=== PATIENT | male | born 1970 | race Caucasian/White ===

== ENCOUNTER → 2021-09-29 | Outpatient (REF) | payer MEDICAID, SELFPAY ==
[2021-09-29 10:39] LABS: Absolute Lymphocyte Count 2.51 X10^3/uL (0.83-4.51); Absolute Neutrophil Count 2.2 X10^3/uL (2.0-7.7); Basophil# 0.05 X10^3/uL; Basophil% 0.9 % (0-1); Eosinophil# 0.42 X10^3/uL; Eosinophils% 7.3 % (0-5); Hemoglobin 14.8 g/dL (13.0-16.5); Lymphocyte # 2.51 X10^3/ul (0.83-4.51); Lymphocyte % 43.5 % (19-41); Mean Corp Hgb Conc 33.6 g/dL (32-36); Mean Corpuscular Hgb 30.7 pg (27.0-32.0); Mean Corpuscular Volume 91.3 fL (80-94); Monocyte# 0.58 X10^3/uL; Monocyte% 10.1 % (0-10); NRBC Flagged by Analyzer 0 % (0-5); Neutrophil # 2.17 X10^3/uL (2.7-7.7); Neutrophil % 37.5 % (47-70); Platelet Count 193 K/mm3 (150-450); RBC Distribution Width CV 13.3 % (11.6-14.6); RBC Distribution Width SD 44.9 fl (35.1-43.9); Red Blood Count 4.82 M/mm3 (4.6-6.2); White Blood Count 5.8 K/mm3 (4.4-11.0)
[2021-09-29 11:32] LABS: ALB/GLOB Ratio 0.9 RATIO (0.9-2.4); AST(SGOT) 51 U/L (15-37); Alanine Aminotransfer ALT/SGPT 82 U/L (16-61); Albumin, Serum 3.2 g/dL (3.2-5.0); Alkaline Phosphatase 59 U/L (45-117); BUN 10 mg/dL (7-18); BUN/Creat Ratio 8.1 RATIO (10-20); Chloride 107 mmol/L (98-107); Creatinine, Serum 1.24 mg/dL (0.70-1.30); EST Glomerular Filtration Rate 65 mL/min (>60); Est Glom Filt Rate - Afr Amer 78 mL/min (>60); Globulin 3.6 g/dL (2.2-4.2); Glucose 91 mg/dL (74-106); Protein, Total 6.8 g/dL (6.4-8.2); Sodium Level 137 mmol/L (136-145)
[2021-09-29 11:33] LABS: Anion Gap 5 (5-15)
== END | disposition home or self-care (01) ==
LOC: OLS.SANC 06:40
PROVIDERS: PCP Internal Medicine; Referring Provider Internal Medicine; Visit Provider Internal Medicine
DX: E11.9 Type 2 diabetes mellitus without complications (principal)
CPT/HCPCS: 36415; 80053; 85025

== ENCOUNTER → 2021-10-06 | Outpatient (REF) | payer MEDICAID, SELFPAY ==
[2021-10-06 09:31] LABS: Valproic Acid (Depakene) Level 67 ug/mL (50-100)
[2021-10-06 09:42] LABS: Hemoglobin A1c 5.5 % (3.8-5.6)
[2021-10-06 09:43] LABS: Vitamin B12 654 pg/mL (211-911); Vitamin D,25 Hydroxy 87.6 ng/mL
[2021-10-06 10:10] LABS: Cholesterol 236 mg/dL (200); High Density Lipoprotein 34 mg/dL; Thyroid Stim Hormone (TSH) 2.65 uIU/mL (0.358-3.74); Triglycerides 242 mg/dL; Very Low Density Lipoprotein 48 mg/dL (5-40)
[2021-10-10 13:47] LABS: KEPPRA (LEVETIRACETAM) 22.8 ug/mL (10.0-40.0)
== END | disposition home or self-care (01) ==
LOC: OLS.SANC 05:00
PROVIDERS: PCP Internal Medicine; Referring Provider Internal Medicine
DX: I10 Essential (primary) hypertension (principal); J44.9 Chronic obstructive pulmonary disease, unspecified; D64.9 Anemia, unspecified
CPT/HCPCS: 36415; 80061; 80164; 80177; 82306; 82607; 82746; 83036; 84443

== ENCOUNTER → 2021-10-21 | Outpatient (REF) | payer MEDICAID, SELFPAY | END | disposition home or self-care (01) | LOC: OLS.SANC 07:00 | PROVIDERS: Visit Provider Internal Medicine | DX: U07.1 COVID-19 (principal) | CPT/HCPCS: 87635; U0003; U0005 ==

== ENCOUNTER → 2021-11-24 16:00 | Outpatient (REF) | payer MEDICAID, SELFPAY ==
[2021-11-25 06:39] LABS: Bacteria 0 SEEN /hpf (None Seen); Mucous, Urine 0 SEEN /hpf (<or=2+); Red Blood Cells-Urine 0 SEEN /hpf (0-5); Squamous Epithelial Cells - UA 0 SEEN /hpf (0-5); White Blood Cells 0 SEEN /hpf (0-5)
[2021-11-25 06:57] LABS: Color, Urine Yellow (Yellow); Glucose, Dipstick Normal (Normal); Ketone-Dipstick Negative (Negative); Leukocyte Esterase-Dipstick Negative /ul (Negative); Nitrite-Dipstick Negative (Negative); Occult Blood-Urine Negative /ul (Negative); Protein-Dipstick Negative (Negative); Specific Gravity, Urine 1.015 (1.002-1.030); Urine Bilirubin Dipstick Negative (Negative); Urine Clarity Clear (Clear); Urine Urobilinogen 1 mg/dl (Normal)
== END ==
LOC: OLS.SANC 16:00
PROVIDERS: Referring Provider Internal Medicine; Visit Provider Internal Medicine
DX: R41.82 Altered mental status, unspecified (principal)
CPT/HCPCS: 81001; 87086; 87088

== ENCOUNTER → 2021-12-04 05:00 | Outpatient (REF) | payer MEDICAID, SELFPAY ==
[2021-12-04 08:30] LABS: Basophil# 0.05 X10^3/uL; Eosinophil# 0.32 X10^3/uL; Eosinophils% 6.3 % (0-5); Hematocrit 39.4 % (40-54); Hemoglobin 13.1 g/dL (13.0-16.5); Lymphocyte % 45.4 % (19-41); Mean Corp Hgb Conc 33.2 g/dL (32-36); Mean Corpuscular Hgb 30.5 pg (27.0-32.0); Mean Corpuscular Volume 91.6 fL (80-94); Mean Platelet Vol. 9.2 fl (6.2-12.0); Monocyte# 0.41 X10^3/uL; Monocyte% 8.1 % (0-10); NRBC Flagged by Analyzer 0 % (0-5); Neutrophil # 1.97 X10^3/uL (2.7-7.7); Neutrophil % 38.8 % (47-70); Platelet Count 233 K/mm3 (150-450); White Blood Count 5.1 K/mm3 (4.4-11.0)
[2021-12-04 09:07] LABS: Anion Gap 7 (5-15); BUN 8 mg/dL (7-18); BUN/Creat Ratio 8.1 RATIO (10-20); Calcium,Total 9.1 mg/dL (8.5-10.1); Chloride 105 mmol/L (98-107); Creatinine, Serum 0.98 mg/dL (0.70-1.30); EST Glomerular Filtration Rate 85 mL/min (>60); Est Glom Filt Rate - Afr Amer 103 mL/min (>60); Glucose 103 mg/dL (74-106); Potassium 3.8 mmol/L (3.5-5.1); Sodium Level 139 mmol/L (136-145); Thyroid Stim Hormone (TSH) 2.85 uIU/mL (0.358-3.74)
== END ==
LOC: OLS.SANC 05:00
PROVIDERS: Visit Provider Internal Medicine
DX: D64.9 Anemia, unspecified (principal); J44.9 Chronic obstructive pulmonary disease, unspecified
CPT/HCPCS: 36415; 80048; 84443; 85025

== ENCOUNTER → 2022-01-16 | Outpatient (REF) | payer MEDICAID, SELFPAY ==
[2022-01-16 08:44] LABS: PSA,Total - Annual Screen 2.04 ng/mL (0.00-4.00)
== END | disposition home or self-care (01) ==
LOC: OLS.SANC 05:00
PROVIDERS: Visit Provider Internal Medicine
DX: R39.9 Unspecified symptoms and signs involving the genitourinary system (principal)
CPT/HCPCS: 36415; 84153; G0103

== ENCOUNTER → 2022-02-03 | Outpatient (REF) | payer MEDICAID, SELFPAY ==
[2022-02-03 09:51] LABS: Hematocrit 39.6 % (40-54); Hemoglobin 13.3 g/dL (13.0-16.5); Mean Corp Hgb Conc 33.6 g/dL (32-36); Mean Corpuscular Hgb 31.1 pg (27.0-32.0); Mean Corpuscular Volume 92.5 fL (80-94); Mean Platelet Vol. 8.8 fl (6.2-12.0); Platelet Count 162 K/mm3 (150-450); RBC Distribution Width CV 14.1 % (11.6-14.6); RBC Distribution Width SD 47.8 fl (35.1-43.9); Red Blood Count 4.28 M/mm3 (4.6-6.2); White Blood Count 6.1 K/mm3 (4.4-11.0)
[2022-02-03 10:00] LABS: Valproic Acid (Depakene) Level 86 ug/mL (50-100)
== END | disposition home or self-care (01) ==
LOC: OLS.SANC 05:00
PROVIDERS: Visit Provider Internal Medicine
DX: D64.9 Anemia, unspecified (principal); J44.9 Chronic obstructive pulmonary disease, unspecified; I10 Essential (primary) hypertension; Z79.899 Other long term (current) drug therapy
CPT/HCPCS: 36415; 80164; 85027

== ENCOUNTER → 2022-02-18 | Outpatient (REF) | payer MEDICAID, SELFPAY | END | disposition home or self-care (01) | LOC: OLS.SANC 05:00 | PROVIDERS: Visit Provider Internal Medicine | DX: M62.81 Muscle weakness (generalized) (principal) | CPT/HCPCS: 36415; 82306 ==

== ENCOUNTER → 2022-04-10 | Outpatient (REF) | payer MEDICAID, SELFPAY ==
[2022-04-10 08:31] LABS: Hematocrit 41.9 % (40-54); Hemoglobin 13.9 g/dL (13.0-16.5); Mean Corp Hgb Conc 33.2 g/dL (32-36); Mean Corpuscular Hgb 30.3 pg (27.0-32.0); Mean Corpuscular Volume 91.5 fL (80-94); Platelet Count 180 K/mm3 (150-450); RBC Distribution Width CV 13.4 % (11.6-14.6); RBC Distribution Width SD 45.3 fl (35.1-43.9); Red Blood Count 4.58 M/mm3 (4.6-6.2); White Blood Count 9.7 K/mm3 (4.4-11.0)
[2022-04-10 08:42] LABS: Valproic Acid (Depakene) Level 94 ug/mL (50-100)
[2022-04-10 08:58] LABS: ALB/GLOB Ratio 0.8 RATIO (0.9-2.4); AST(SGOT) 17 U/L (15-37); Alanine Aminotransfer ALT/SGPT 33 U/L (16-61); Albumin, Serum 3.1 g/dL (3.2-5.0); Alkaline Phosphatase 63 U/L (45-117); Anion Gap 8 (5-15); BUN 7 mg/dL (7-18); BUN/Creat Ratio 6.2 RATIO (10-20); Chloride 103 mmol/L (98-107); Cholesterol 211 mg/dL (200); Creatinine, Serum 1.13 mg/dL (0.70-1.30); EST Glomerular Filtration Rate 72 mL/min (>60); Est Glom Filt Rate - Afr Amer 87 mL/min (>60); Globulin 4.1 g/dL (2.2-4.2); Glucose 99 mg/dL (74-106); High Density Lipoprotein 46 mg/dL; Potassium 3.5 mmol/L (3.5-5.1); Protein, Total 7.2 g/dL (6.4-8.2); Sodium Level 138 mmol/L (136-145); Thyroid Stim Hormone (TSH) 4.19 uIU/mL (0.358-3.74); Triglycerides 136 mg/dL; Very Low Density Lipoprotein 27 mg/dL (5-40)
== END | disposition home or self-care (01) ==
LOC: OLS.SANC 05:00
PROVIDERS: Visit Provider Internal Medicine
DX: D64.9 Anemia, unspecified (principal); J44.9 Chronic obstructive pulmonary disease, unspecified; I10 Essential (primary) hypertension
CPT/HCPCS: 36415; 80053; 80061; 80164; 84443; 85027

== ENCOUNTER → 2022-05-04 | Outpatient (REF) | payer MEDICAID, SELFPAY ==
[2022-05-04 10:30] LABS: Hematocrit 42.9 % (40-54); Hemoglobin 14.6 g/dL (13.0-16.5); Mean Corpuscular Hgb 31.1 pg (27.0-32.0); Mean Corpuscular Volume 91.3 fL (80-94); Mean Platelet Vol. 9.1 fl (6.2-12.0); Platelet Count 198 K/mm3 (150-450); RBC Distribution Width CV 13.4 % (11.6-14.6); RBC Distribution Width SD 45.2 fl (35.1-43.9); White Blood Count 6.5 K/mm3 (4.4-11.0)
[2022-05-04 10:41] LABS: Valproic Acid (Depakene) Level 81 ug/mL (50-100)
[2022-05-04 10:45] LABS: Cholesterol 240 mg/dL (200); High Density Lipoprotein 35 mg/dL; Triglycerides 209 mg/dL; Very Low Density Lipoprotein 42 mg/dL (5-40)
== END | disposition home or self-care (01) ==
LOC: OLS.SANC 05:00
PROVIDERS: Visit Provider Internal Medicine
DX: D64.9 Anemia, unspecified (principal); J44.9 Chronic obstructive pulmonary disease, unspecified; I10 Essential (primary) hypertension
CPT/HCPCS: 36415; 80061; 80164; 85027

== ENCOUNTER → 2022-05-27 | Outpatient (REF) | payer MEDICAID, SELFPAY ==
[2022-05-27 08:35] LABS: Valproic Acid (Depakene) Level 79 ug/mL (50-100)
== END | disposition home or self-care (01) ==
LOC: OLS.SANC 05:40
PROVIDERS: Visit Provider Internal Medicine
DX: R56.9 Unspecified convulsions (principal)
CPT/HCPCS: 36415; 80164; 80177

== ENCOUNTER → 2022-06-10 | Outpatient (REF) | payer MEDICAID, SELFPAY ==
[2022-06-10 09:02] LABS: Thyroid Stim Hormone (TSH) 3.91 uIU/mL (0.358-3.74)
== END | disposition home or self-care (01) ==
LOC: OLS.SANC 05:00
PROVIDERS: Visit Provider Internal Medicine
DX: I10 Essential (primary) hypertension (principal); F63.9 Impulse disorder, unspecified
CPT/HCPCS: 36415; 84443

== ENCOUNTER → 2022-06-25 | Outpatient (REF) | payer MEDICAID, SELFPAY ==
[2022-06-25 08:50] LABS: Hematocrit 44.8 % (40-54); Hemoglobin 14.6 g/dL (13.0-16.5); Mean Corp Hgb Conc 32.6 g/dL (32-36); Mean Corpuscular Hgb 30.7 pg (27.0-32.0); Mean Corpuscular Volume 94.1 fL (80-94); Mean Platelet Vol. 9.2 fl (6.2-12.0); Platelet Count 178 K/mm3 (150-450); RBC Distribution Width CV 13.7 % (11.6-14.6); RBC Distribution Width SD 47.8 fl (35.1-43.9); Red Blood Count 4.76 M/mm3 (4.6-6.2); White Blood Count 6.7 K/mm3 (4.4-11.0)
[2022-06-25 09:20] LABS: Anion Gap 9 (5-15); BUN 9 mg/dL (7-18); BUN/Creat Ratio 7.3 RATIO (10-20); Calcium,Total 8.9 mg/dL (8.5-10.1); Chloride 105 mmol/L (98-107); Creatinine, Serum 1.23 mg/dL (0.70-1.30); EST Glomerular Filtration Rate 65 mL/min (>60); Est Glom Filt Rate - Afr Amer 79 mL/min (>60); Glucose 96 mg/dL (74-106); Potassium 4.1 mmol/L (3.5-5.1); Sodium Level 140 mmol/L (136-145)
== END | disposition home or self-care (01) ==
LOC: OLS.SANC 05:00
PROVIDERS: Visit Provider Internal Medicine
DX: D64.9 Anemia, unspecified (principal); J44.9 Chronic obstructive pulmonary disease, unspecified; I10 Essential (primary) hypertension
CPT/HCPCS: 36415; 80048; 85027

== ENCOUNTER → 2022-06-29 | Outpatient (REF) | payer MEDICAID, SELFPAY ==
[2022-06-29 09:39] LABS: Hematocrit 46.2 % (40-54); Hemoglobin 15.3 g/dL (13.0-16.5); Mean Corp Hgb Conc 33.1 g/dL (32-36); Mean Corpuscular Hgb 30.6 pg (27.0-32.0); Mean Corpuscular Volume 92.4 fL (80-94); Mean Platelet Vol. 9.2 fl (6.2-12.0); Platelet Count 189 K/mm3 (150-450); RBC Distribution Width CV 13.6 % (11.6-14.6); RBC Distribution Width SD 46.2 fl (35.1-43.9); White Blood Count 6.7 K/mm3 (4.4-11.0)
[2022-06-29 10:14] LABS: BUN 13 mg/dL (7-18); BUN/Creat Ratio 11.3 RATIO (10-20); Calcium,Total 9.2 mg/dL (8.5-10.1); Chloride 105 mmol/L (98-107); Creatinine, Serum 1.15 mg/dL (0.70-1.30); EST Glomerular Filtration Rate 71 mL/min (>60); Est Glom Filt Rate - Afr Amer 85 mL/min (>60); Glucose 88 mg/dL (74-106); Potassium 3.9 mmol/L (3.5-5.1); Sodium Level 140 mmol/L (136-145)
[2022-06-29 10:15] LABS: Anion Gap 10 (5-15)
== END | disposition home or self-care (01) ==
LOC: OLS.SANC 04:00
PROVIDERS: Referring Provider Internal Medicine; Visit Provider Internal Medicine
DX: I10 Essential (primary) hypertension (principal); J44.9 Chronic obstructive pulmonary disease, unspecified; K73.9 Chronic hepatitis, unspecified
CPT/HCPCS: 36415; 80048; 85027

== ENCOUNTER → 2022-07-01 | Outpatient (REF) | payer MEDICAID, SELFPAY ==
[2022-07-01 09:23] LABS: Hematocrit 43.2 % (40-54); Hemoglobin 14.8 g/dL (13.0-16.5); Mean Corp Hgb Conc 34.3 g/dL (32-36); Mean Corpuscular Hgb 31.4 pg (27.0-32.0); Mean Corpuscular Volume 91.5 fL (80-94); Mean Platelet Vol. 8.9 fl (6.2-12.0); Platelet Count 188 K/mm3 (150-450); RBC Distribution Width CV 13.4 % (11.6-14.6); RBC Distribution Width SD 45.4 fl (35.1-43.9); Red Blood Count 4.72 M/mm3 (4.6-6.2); White Blood Count 6.8 K/mm3 (4.4-11.0)
[2022-07-01 09:32] LABS: Anion Gap 9 (5-15); BUN 11 mg/dL (7-18); BUN/Creat Ratio 9.9 RATIO (10-20); Calcium,Total 8.8 mg/dL (8.5-10.1); Chloride 106 mmol/L (98-107); Creatinine, Serum 1.11 mg/dL (0.70-1.30); EST Glomerular Filtration Rate 73 mL/min (>60); Est Glom Filt Rate - Afr Amer 89 mL/min (>60); Glucose 87 mg/dL (74-106); Sodium Level 141 mmol/L (136-145)
== END | disposition home or self-care (01) ==
LOC: OLS.SANC 05:00
PROVIDERS: Visit Provider Internal Medicine
DX: D64.9 Anemia, unspecified (principal); J44.9 Chronic obstructive pulmonary disease, unspecified; I10 Essential (primary) hypertension
CPT/HCPCS: 36415; 80048; 85027

== ENCOUNTER → 2022-07-06 | Outpatient (REF) | payer MEDICAID, SELFPAY ==
[2022-07-07 09:41] LABS: Bacteria 0 SEEN /hpf (None Seen); Mucous, Urine 0 SEEN /hpf (<or=2+); Red Blood Cells-Urine 0 SEEN /hpf (0-5); Squamous Epithelial Cells - UA 0 SEEN /hpf (0-5); White Blood Cells 0 SEEN /hpf (0-5)
[2022-07-07 09:55] LABS: Color, Urine Yellow (Yellow); Glucose, Dipstick Normal (Normal); Ketone-Dipstick 5 mg/dl (Negative); Leukocyte Esterase-Dipstick Negative /ul (Negative); Nitrite-Dipstick Negative (Negative); Occult Blood-Urine Negative /ul (Negative); Protein-Dipstick Negative (Negative); Specific Gravity, Urine 1.015 (1.002-1.030); Urine Bilirubin Dipstick Negative (Negative); Urine Clarity Clear (Clear); Urine Urobilinogen Normal (Normal); Urine pH 6.5 (5.0 - 8.0)
== END | disposition home or self-care (01) ==
LOC: OLS.SANC 13:15
PROVIDERS: Visit Provider Internal Medicine
DX: D64.9 Anemia, unspecified (principal); N39.0 Urinary tract infection, site not specified; J44.9 Chronic obstructive pulmonary disease, unspecified
CPT/HCPCS: 81001; 87086; 87088

== ENCOUNTER → 2022-07-08 | Outpatient (REF) | payer MEDICAID, SELFPAY ==
[2022-07-08 09:03] LABS: PSA,Total - Annual Screen 3.21 ng/mL (0.00-4.00)
== END | disposition home or self-care (01) ==
LOC: OLS.SANC 05:00
PROVIDERS: Visit Provider Internal Medicine
DX: D64.9 Anemia, unspecified (principal); J44.9 Chronic obstructive pulmonary disease, unspecified; I10 Essential (primary) hypertension; Z12.5 Encounter for screening for malignant neoplasm of prostate
CPT/HCPCS: 36415; 84153; G0103

== ENCOUNTER → 2022-07-15 | Outpatient (REF) | payer MEDICAID, SELFPAY | END | disposition home or self-care (01) | LOC: OLS.SANC 05:00 | PROVIDERS: Visit Provider Internal Medicine | DX: E03.9 Hypothyroidism, unspecified (principal) | CPT/HCPCS: 36415; 84443 ==

== ENCOUNTER → 2022-08-26 | Outpatient (REF) | payer MEDICAID, SELFPAY ==
[2022-08-26 08:40] LABS: Thyroid Stim Hormone (TSH) 4.13 uIU/mL (0.358-3.74)
== END | disposition home or self-care (01) ==
LOC: OLS.SANC 05:00
PROVIDERS: Visit Provider Internal Medicine
DX: E03.9 Hypothyroidism, unspecified (principal)
CPT/HCPCS: 36415; 84443

== ENCOUNTER → 2022-09-17 | Outpatient (REF) | payer MEDICAID, SELFPAY ==
[2022-09-17 08:23] LABS: Hematocrit 45.3 % (40-54); Hemoglobin 15.3 g/dL (13.0-16.5); Mean Corp Hgb Conc 33.8 g/dL (32-36); Mean Corpuscular Hgb 31.3 pg (27.0-32.0); Mean Corpuscular Volume 92.6 fL (80-94); Mean Platelet Vol. 8.4 fl (6.2-12.0); Platelet Count 199 K/mm3 (150-450); RBC Distribution Width CV 13.9 % (11.6-14.6); RBC Distribution Width SD 47.4 fl (35.1-43.9); Red Blood Count 4.89 M/mm3 (4.6-6.2); White Blood Count 8.9 K/mm3 (4.4-11.0)
[2022-09-17 08:38] LABS: Anion Gap 4 (5-15); BUN 9 mg/dL (7-18); Chloride 106 mmol/L (98-107); Creatinine, Serum 1.13 mg/dL (0.70-1.30); EST Glomerular Filtration Rate 72 mL/min (>60); Est Glom Filt Rate - Afr Amer 87 mL/min (>60); Glucose 100 mg/dL (74-106); Potassium 3.7 mmol/L (3.5-5.1); Sodium Level 137 mmol/L (136-145)
== END | disposition home or self-care (01) ==
LOC: OLS.SANC 05:00
PROVIDERS: Visit Provider Internal Medicine
DX: D64.9 Anemia, unspecified (principal); J44.9 Chronic obstructive pulmonary disease, unspecified; I10 Essential (primary) hypertension; K75.9 Inflammatory liver disease, unspecified
CPT/HCPCS: 36415; 80048; 85027

== ENCOUNTER → 2022-10-08 | Outpatient (REF) | payer MEDICAID, SELFPAY ==
[2022-10-08 08:54] LABS: Hematocrit 44.7 % (40-54); Hemoglobin 14.8 g/dL (13.0-16.5); Mean Corp Hgb Conc 33.1 g/dL (32-36); Mean Corpuscular Hgb 31.3 pg (27.0-32.0); Mean Corpuscular Volume 94.5 fL (80-94); Mean Platelet Vol. 9.2 fl (6.2-12.0); Platelet Count 201 K/mm3 (150-450); RBC Distribution Width SD 49.3 fl (35.1-43.9); Red Blood Count 4.73 M/mm3 (4.6-6.2); White Blood Count 6.3 K/mm3 (4.4-11.0)
[2022-10-08 09:13] LABS: Anion Gap 7 (5-15); BUN 8 mg/dL (7-18); BUN/Creat Ratio 5.8 RATIO (10-20); Calcium,Total 9.2 mg/dL (8.5-10.1); Chloride 107 mmol/L (98-107); Cholesterol 212 mg/dL (200); Creatinine, Serum 1.39 mg/dL (0.70-1.30); EST Glomerular Filtration Rate 57 mL/min (>60); Est Glom Filt Rate - Afr Amer 69 mL/min (>60); Glucose 90 mg/dL (74-106); High Density Lipoprotein 31 mg/dL; Potassium 4.4 mmol/L (3.5-5.1); Sodium Level 141 mmol/L (136-145); Triglycerides 280 mg/dL; Valproic Acid (Depakene) Level 94 ug/mL (50-100); Very Low Density Lipoprotein 56 mg/dL (5-40)
== END | disposition home or self-care (01) ==
LOC: OLS.SANC 05:00
PROVIDERS: Visit Provider Internal Medicine
DX: D64.9 Anemia, unspecified (principal); J44.9 Chronic obstructive pulmonary disease, unspecified; I10 Essential (primary) hypertension; K73.9 Chronic hepatitis, unspecified
CPT/HCPCS: 36415; 80048; 80061; 80164; 85027

== ENCOUNTER → 2022-11-25 | Outpatient (REF) | payer MEDICAID, SELFPAY ==
[2022-11-25 12:06] LABS: Thyroid Stim Hormone (TSH) 3.17 uIU/mL (0.358-3.74)
== END | disposition home or self-care (01) ==
LOC: OLS.SANC 07:10
PROVIDERS: Visit Provider Internal Medicine
DX: E03.9 Hypothyroidism, unspecified (principal)
CPT/HCPCS: 36415; 84443

== ENCOUNTER → 2022-11-26 | Outpatient (REF) | payer MEDICAID, SELFPAY ==
[2022-11-30 19:07] LABS: KEPPRA (LEVETIRACETAM) 16.9 ug/mL (10.0-40.0)
== END | disposition home or self-care (01) ==
LOC: OLS.SANC 05:00
PROVIDERS: Visit Provider Internal Medicine
DX: Z79.899 Other long term (current) drug therapy (principal)
CPT/HCPCS: 36415; 80177

== ENCOUNTER → 2023-02-15 | Outpatient (REF) | payer MEDICAID, SELFPAY ==
[2023-02-15 08:10] LABS: Hematocrit 44.8 % (40-54); Hemoglobin 15.2 g/dL (13.0-16.5); Mean Corp Hgb Conc 33.9 g/dL (32-36); Mean Corpuscular Hgb 31.9 pg (27.0-32.0); Mean Corpuscular Volume 94.1 fL (80-94); Mean Platelet Vol. 8.8 fl (6.2-12.0); Platelet Count 160 K/mm3 (150-450); RBC Distribution Width CV 13.4 % (11.6-14.6); RBC Distribution Width SD 46.2 fl (35.1-43.9); Red Blood Count 4.76 M/mm3 (4.6-6.2); White Blood Count 7.3 K/mm3 (4.4-11.0)
[2023-02-15 08:40] LABS: Valproic Acid (Depakene) Level 89 ug/mL (50-100)
== END | disposition home or self-care (01) ==
LOC: OLS.SANC 05:00
PROVIDERS: Visit Provider Internal Medicine
DX: D64.9 Anemia, unspecified (principal); I10 Essential (primary) hypertension
CPT/HCPCS: 36415; 80164; 85027

== ENCOUNTER → 2023-02-17 | Outpatient (REF) | payer MEDICAID, SELFPAY ==
[2023-02-17 09:45] LABS: Vitamin D,25 Hydroxy 95.1 ng/mL
== END | disposition home or self-care (01) ==
LOC: OLS.SANC 06:00
PROVIDERS: Visit Provider Internal Medicine
DX: E55.9 Vitamin D deficiency, unspecified (principal); Z79.899 Other long term (current) drug therapy
CPT/HCPCS: 36415; 82306

== ENCOUNTER → 2023-04-05 | Outpatient (REF) | payer MEDICAID, SELFPAY ==
[2023-04-05 10:23] LABS: Hematocrit 46.3 % (40-54); Hemoglobin 15.5 g/dL (13.0-16.5); Mean Corp Hgb Conc 33.5 g/dL (32-36); Mean Corpuscular Hgb 31.5 pg (27.0-32.0); Mean Corpuscular Volume 94.1 fL (80-94); Mean Platelet Vol. 9.3 fl (6.2-12.0); Platelet Count 200 K/mm3 (150-450); RBC Distribution Width CV 13.2 % (11.6-14.6); RBC Distribution Width SD 45.2 fl (35.1-43.9); Red Blood Count 4.92 M/mm3 (4.6-6.2); White Blood Count 7.2 K/mm3 (4.4-11.0)
[2023-04-05 10:32] LABS: Valproic Acid (Depakene) Level 82 ug/mL (50-100)
[2023-04-05 10:45] LABS: ALB/GLOB Ratio 0.7 RATIO (0.9-2.4); AST(SGOT) 17 U/L (15-37); Alanine Aminotransfer ALT/SGPT 30 U/L (16-61); Alkaline Phosphatase 85 U/L (45-117); Anion Gap 9 (5-15); BUN 6 mg/dL (7-18); BUN/Creat Ratio 5.3 RATIO (10-20); Calcium,Total 8.8 mg/dL (8.5-10.1); Chloride 104 mmol/L (98-107); Cholesterol 238 mg/dL (200); Creatinine, Serum 1.14 mg/dL (0.70-1.30); EST Glomerular Filtration Rate 71 mL/min (>60); Est Glom Filt Rate - Afr Amer 86 mL/min (>60); Globulin 4.1 g/dL (2.2-4.2); Glucose 106 mg/dL (74-106); High Density Lipoprotein 39 mg/dL; Potassium 3.9 mmol/L (3.5-5.1); Protein, Total 7.1 g/dL (6.4-8.2); Sodium Level 139 mmol/L (136-145); Triglycerides 241 mg/dL; Very Low Density Lipoprotein 48 mg/dL (5-40)
[2023-04-07 19:07] LABS: KEPPRA (LEVETIRACETAM) 18.1 ug/mL (10.0-40.0)
== END | disposition home or self-care (01) ==
LOC: OLS.SANC 04:00
PROVIDERS: Referring Provider Internal Medicine; Visit Provider Internal Medicine
DX: D64.9 Anemia, unspecified (principal); J44.9 Chronic obstructive pulmonary disease, unspecified; I10 Essential (primary) hypertension; G93.40 Encephalopathy, unspecified
CPT/HCPCS: 36415; 80053; 80061; 80164; 80177; 85027

== ENCOUNTER → 2023-05-25 | Outpatient (REF) | payer MEDICAID, SELFPAY ==
[2023-05-25 08:14] LABS: Hematocrit 37.1 % (40-54); Hemoglobin 12.7 g/dL (13.0-16.5); Mean Corp Hgb Conc 34.2 g/dL (32-36); Mean Corpuscular Hgb 31.4 pg (27.0-32.0); Mean Corpuscular Volume 91.6 fL (80-94); Platelet Count 193 K/mm3 (150-450); RBC Distribution Width CV 13.5 % (11.6-14.6); RBC Distribution Width SD 45.7 fl (35.1-43.9); Red Blood Count 4.05 M/mm3 (4.6-6.2); White Blood Count 6.7 K/mm3 (4.4-11.0)
[2023-05-25 08:21] LABS: Anion Gap 5 (5-15); BUN 11 mg/dL (7-18); BUN/Creat Ratio 9.2 RATIO (10-20); Calcium,Total 8.5 mg/dL (8.5-10.1); Chloride 107 mmol/L (98-107); EST Glomerular Filtration Rate 67 mL/min (>60); Est Glom Filt Rate - Afr Amer 81 mL/min (>60); Glucose 90 mg/dL (74-106); Potassium 3.2 mmol/L (3.5-5.1); Sodium Level 139 mmol/L (136-145)
[2023-05-25 08:23] LABS: Valproic Acid (Depakene) Level 96 ug/mL (50-100)
== END | disposition home or self-care (01) ==
LOC: OLS.SANC 05:00
PROVIDERS: Visit Provider Internal Medicine
DX: D64.9 Anemia, unspecified (principal); J44.9 Chronic obstructive pulmonary disease, unspecified; Z79.899 Other long term (current) drug therapy
CPT/HCPCS: 36415; 80048; 80164; 85027

== ENCOUNTER → 2023-06-02 | Outpatient (REF) | payer MEDICAID, SELFPAY ==
[2023-06-02 09:31] LABS: Bacteria 0 SEEN /hpf (None Seen); Mucous, Urine 0 SEEN /hpf (<or=2+); Squamous Epithelial Cells - UA 0 SEEN /hpf (0-5); White Blood Cells 0 SEEN /hpf (0-5)
[2023-06-02 10:21] LABS: Color, Urine Yellow (Yellow); Glucose, Dipstick Normal (Normal); Ketone-Dipstick Negative (Negative); Leukocyte Esterase-Dipstick Negative /ul (Negative); Nitrite-Dipstick Negative (Negative); Occult Blood-Urine 10 /ul (Negative); Protein-Dipstick Negative (Negative); Specific Gravity, Urine 1.015 (1.002-1.030); Urine Bilirubin Dipstick Negative (Negative); Urine Clarity Clear (Clear); Urine Urobilinogen Normal (Normal)
[2023-06-02 10:53] LABS: Red Blood Cells-Urine 0-5 SEEN /hpf (0-5)
== END | disposition home or self-care (01) ==
LOC: OLS.SANC 04:00
PROVIDERS: Referring Provider Internal Medicine; Visit Provider Internal Medicine
DX: N39.0 Urinary tract infection, site not specified (principal)
CPT/HCPCS: 81001; 87086; 87088

== ENCOUNTER → 2023-06-09 | Outpatient (REF) | payer MEDICAID, SELFPAY | END | disposition home or self-care (01) | LOC: OLS.SANC 05:00 | PROVIDERS: Visit Provider Internal Medicine | DX: Z12.5 Encounter for screening for malignant neoplasm of prostate (principal); Z79.899 Other long term (current) drug therapy | CPT/HCPCS: 36415; 84153; G0103 ==

== ENCOUNTER → 2023-06-28 | Outpatient (REF) | payer MEDICAID, SELFPAY ==
[2023-06-28 09:50] LABS: Hematocrit 39.9 % (40-54); Hemoglobin 13.4 g/dL (13.0-16.5); Mean Corp Hgb Conc 33.6 g/dL (32-36); Mean Corpuscular Volume 92.4 fL (80-94); Mean Platelet Vol. 9.5 fl (6.2-12.0); Platelet Count 179 K/mm3 (150-450); RBC Distribution Width CV 13.2 % (11.6-14.6); RBC Distribution Width SD 45.5 fl (35.1-43.9); Red Blood Count 4.32 M/mm3 (4.6-6.2); White Blood Count 7.5 K/mm3 (4.4-11.0)
[2023-06-28 10:22] LABS: Anion Gap 6 (5-15); BUN 5 mg/dL (7-18); Calcium,Total 9.1 mg/dL (8.5-10.1); Chloride 106 mmol/L (98-107); EST Glomerular Filtration Rate 83 mL/min (>60); Est Glom Filt Rate - Afr Amer 100 mL/min (>60); Glucose 102 mg/dL (74-106); Sodium Level 137 mmol/L (136-145)
== END | disposition home or self-care (01) ==
LOC: OLS.SANC 05:00
PROVIDERS: Visit Provider Internal Medicine
DX: K73.9 Chronic hepatitis, unspecified (principal); J44.9 Chronic obstructive pulmonary disease, unspecified; I82.409 Acute embolism and thrombosis of unspecified deep veins of unspecified lower extremity; I10 Essential (primary) hypertension
CPT/HCPCS: 36415; 80048; 85027

== ENCOUNTER → 2023-08-30 | Outpatient (REF) | payer MEDICAID, SELFPAY ==
[2023-08-30 09:21] LABS: Hemoglobin 13.4 g/dL (13.0-16.5); Mean Corp Hgb Conc 32.7 g/dL (32-36); Mean Corpuscular Hgb 30.2 pg (27.0-32.0); Mean Corpuscular Volume 92.3 fL (80-94); Mean Platelet Vol. 9.1 fl (6.2-12.0); Platelet Count 196 K/mm3 (150-450); RBC Distribution Width CV 13.7 % (11.6-14.6); RBC Distribution Width SD 46.9 fl (35.1-43.9); Red Blood Count 4.44 M/mm3 (4.6-6.2); White Blood Count 4.9 K/mm3 (4.4-11.0)
[2023-08-30 09:41] LABS: ALB/GLOB Ratio 0.7 RATIO (0.9-2.4); AST(SGOT) 30 U/L (15-37); Alanine Aminotransfer ALT/SGPT 21 U/L (16-61); Alkaline Phosphatase 95 U/L (45-117); Anion Gap 7 (5-15); BUN 8 mg/dL (7-18); BUN/Creat Ratio 6.2 RATIO (10-20); Calcium,Total 9.1 mg/dL (8.5-10.1); Chloride 103 mmol/L (98-107); EST Glomerular Filtration Rate 61 mL/min (>60); Est Glom Filt Rate - Afr Amer 74 mL/min (>60); Globulin 4.3 g/dL (2.2-4.2); Glucose 99 mg/dL (74-106); Potassium 4.1 mmol/L (3.5-5.1); Protein, Total 7.3 g/dL (6.4-8.2); Sodium Level 135 mmol/L (136-145)
== END | disposition home or self-care (01) ==
LOC: OLS.SANC 05:00
PROVIDERS: Visit Provider Internal Medicine
DX: J44.9 Chronic obstructive pulmonary disease, unspecified (principal)
CPT/HCPCS: 36415; 80053; 85027

== ENCOUNTER → 2023-09-14 | Outpatient (REF) | payer MEDICAID, SELFPAY ==
[2023-09-14 09:00] LABS: Mucous, Urine 0 SEEN /hpf (<or=2+)
[2023-09-14 09:22] LABS: Color, Urine Yellow (Yellow); Glucose, Dipstick Normal (Normal); Ketone-Dipstick Negative (Negative); Leukocyte Esterase-Dipstick 100 /ul (Negative); Nitrite-Dipstick Negative (Negative); Occult Blood-Urine 10 /ul (Negative); Protein-Dipstick 15 mg/dl (Negative); Urine Bilirubin Dipstick Negative (Negative); Urine Clarity Clear (Clear); Urine Urobilinogen Normal (Normal); Urine pH 6.5 (5.0 - 8.0)
[2023-09-14 09:32] LABS: Bacteria 2+ /hpf (None Seen); Red Blood Cells-Urine 0-5 SEEN /hpf (0-5); Squamous Epithelial Cells - UA 0-5 SEEN /hpf (0-5); White Blood Cells 10-25 SEEN /hpf (0-5)
== END | disposition home or self-care (01) ==
LOC: OLS.SANC 07:50
PROVIDERS: Visit Provider Internal Medicine
DX: R35.0 Frequency of micturition (principal); F41.1 Generalized anxiety disorder; D64.9 Anemia, unspecified; I10 Essential (primary) hypertension; J44.9 Chronic obstructive pulmonary disease, unspecified
CPT/HCPCS: 36415; 81001; 84153; 87077; 87086; 87088; 87186

== ENCOUNTER → 2023-09-16 | Outpatient (REF) | payer MEDICAID, SELFPAY ==
[2023-09-16 09:15] LABS: Valproic Acid (Depakene) Level 64 ug/mL (50-100)
[2023-09-16 09:41] LABS: Cholesterol 148 mg/dL (200); High Density Lipoprotein 24 mg/dL; Triglycerides 242 mg/dL; Very Low Density Lipoprotein 48 mg/dL (5-40)
== END | disposition home or self-care (01) ==
LOC: OLS.SANC 05:00
PROVIDERS: Visit Provider Internal Medicine
DX: D64.9 Anemia, unspecified (principal); J44.9 Chronic obstructive pulmonary disease, unspecified; G93.1 Anoxic brain damage, not elsewhere classified; I10 Essential (primary) hypertension
CPT/HCPCS: 36415; 80061; 80164

== ENCOUNTER → 2023-09-24 | Outpatient (REF) | payer MEDICAID, SELFPAY ==
[2023-09-24 09:13] LABS: Valproic Acid (Depakene) Level 80 ug/mL (50-100)
== END | disposition home or self-care (01) ==
LOC: OLS.SANC 05:00
PROVIDERS: Visit Provider Internal Medicine
DX: Z79.899 Other long term (current) drug therapy (principal)
CPT/HCPCS: 36415; 80164

== ENCOUNTER → 2023-09-27 | Outpatient (REF) | payer MEDICAID, SELFPAY ==
[2023-09-27 09:02] LABS: Hematocrit 35.6 % (40-54); Hemoglobin 11.5 g/dL (13.0-16.5); Mean Corp Hgb Conc 32.3 g/dL (32-36); Mean Corpuscular Hgb 29.5 pg (27.0-32.0); Mean Corpuscular Volume 91.3 fL (80-94); Mean Platelet Vol. 9.6 fl (6.2-12.0); Platelet Count 217 K/mm3 (150-450); RBC Distribution Width CV 14.1 % (11.6-14.6); RBC Distribution Width SD 47.4 fl (35.1-43.9); White Blood Count 5.7 K/mm3 (4.4-11.0)
[2023-09-27 09:43] LABS: Anion Gap 4 (5-15); BUN 5 mg/dL (7-18); BUN/Creat Ratio 5.2 RATIO (10-20); Calcium,Total 8.8 mg/dL (8.5-10.1); Chloride 106 mmol/L (98-107); Creatinine, Serum 0.96 mg/dL (0.70-1.30); EST Glomerular Filtration Rate 86 mL/min (>60); Est Glom Filt Rate - Afr Amer 104 mL/min (>60); Glucose 117 mg/dL (74-106); Potassium 3.9 mmol/L (3.5-5.1); Sodium Level 138 mmol/L (136-145)
== END | disposition home or self-care (01) ==
LOC: OLS.SANC 05:00
PROVIDERS: Visit Provider Internal Medicine
DX: D64.9 Anemia, unspecified (principal); I10 Essential (primary) hypertension; J44.9 Chronic obstructive pulmonary disease, unspecified
CPT/HCPCS: 36415; 80048; 85027

== ENCOUNTER → 2023-09-29 | Outpatient (REF) | payer MEDICAID, SELFPAY ==
[2023-09-30 08:08] LABS: Bacteria 0 SEEN /hpf (None Seen); Mucous, Urine 0 SEEN /hpf (<or=2+); Red Blood Cells-Urine 0 SEEN /hpf (0-5); Squamous Epithelial Cells - UA 0 SEEN /hpf (0-5); White Blood Cells 0 SEEN /hpf (0-5)
[2023-09-30 08:28] LABS: Color, Urine Yellow (Yellow); Glucose, Dipstick Normal (Normal); Ketone-Dipstick Negative (Negative); Leukocyte Esterase-Dipstick Negative /ul (Negative); Nitrite-Dipstick Negative (Negative); Occult Blood-Urine Negative /ul (Negative); Protein-Dipstick Negative (Negative); Urine Bilirubin Dipstick Negative (Negative); Urine Clarity Clear (Clear); Urine Urobilinogen Normal (Normal)
== END | disposition home or self-care (01) ==
LOC: OLS.SANC 22:00
PROVIDERS: Referring Provider Internal Medicine; Visit Provider Internal Medicine
DX: R41.82 Altered mental status, unspecified (principal); D64.9 Anemia, unspecified; J44.9 Chronic obstructive pulmonary disease, unspecified; I10 Essential (primary) hypertension
CPT/HCPCS: 81001; 87077; 87086; 87088

== ENCOUNTER → 2023-10-01 | Outpatient (REF) | payer MEDICAID, SELFPAY ==
[2023-10-01 07:41] LABS: Bacteria 0 SEEN /hpf (None Seen); Mucous, Urine 0 SEEN /hpf (<or=2+); Red Blood Cells-Urine 0 SEEN /hpf (0-5); Squamous Epithelial Cells - UA 0 SEEN /hpf (0-5); White Blood Cells 0 SEEN /hpf (0-5)
[2023-10-01 07:42] LABS: Color, Urine Straw (Yellow); Glucose, Dipstick Normal (Normal); Ketone-Dipstick Negative (Negative); Leukocyte Esterase-Dipstick Negative /ul (Negative); Nitrite-Dipstick Negative (Negative); Occult Blood-Urine Negative /ul (Negative); Protein-Dipstick Negative (Negative); Urine Bilirubin Dipstick Negative (Negative); Urine Clarity Clear (Clear); Urine Urobilinogen Normal (Normal)
== END | disposition home or self-care (01) ==
LOC: OLS.SANC 05:00
PROVIDERS: Visit Provider Internal Medicine
DX: N39.0 Urinary tract infection, site not specified (principal)
CPT/HCPCS: 81001; 87086; 87088

== ENCOUNTER → 2023-10-04 | Outpatient (REF) | payer MEDICAID, SELFPAY ==
[2023-10-04 09:01] LABS: Hematocrit 37.1 % (40-54); Hemoglobin 11.8 g/dL (13.0-16.5); Mean Corp Hgb Conc 31.8 g/dL (32-36); Mean Corpuscular Hgb 28.9 pg (27.0-32.0); Mean Corpuscular Volume 90.9 fL (80-94); Mean Platelet Vol. 9.2 fl (6.2-12.0); Platelet Count 194 K/mm3 (150-450); RBC Distribution Width CV 14.1 % (11.6-14.6); RBC Distribution Width SD 47.2 fl (35.1-43.9); Red Blood Count 4.08 M/mm3 (4.6-6.2); White Blood Count 6.6 K/mm3 (4.4-11.0)
[2023-10-04 09:09] LABS: Vitamin B12 492 pg/mL (211-911)
[2023-10-04 10:09] LABS: ALB/GLOB Ratio 0.6 RATIO (0.9-2.4); AST(SGOT) 12 U/L (15-37); Alanine Aminotransfer ALT/SGPT 10 U/L (16-61); Albumin, Serum 2.6 g/dL (3.2-5.0); Alkaline Phosphatase 132 U/L (45-117); Anion Gap 6 (5-15); BUN 7 mg/dL (7-18); BUN/Creat Ratio 7.2 RATIO (10-20); Calcium,Total 8.8 mg/dL (8.5-10.1); Chloride 106 mmol/L (98-107); Creatinine, Serum 0.97 mg/dL (0.70-1.30); EST Glomerular Filtration Rate 85 mL/min (>60); Est Glom Filt Rate - Afr Amer 103 mL/min (>60); Globulin 4.4 g/dL (2.2-4.2); Glucose 94 mg/dL (74-106); Iron 47 ug/dL (65-175); Iron Binding Capacity,Total 362 ug/dL (250-450); Potassium 3.9 mmol/L (3.5-5.1); Sodium Level 139 mmol/L (136-145)
== END | disposition home or self-care (01) ==
LOC: OLS.SANC 05:00
PROVIDERS: Visit Provider Internal Medicine
DX: D64.9 Anemia, unspecified (principal); J44.9 Chronic obstructive pulmonary disease, unspecified; I10 Essential (primary) hypertension
CPT/HCPCS: 36415; 80053; 82607; 82746; 83540; 83550; 85027

== ENCOUNTER → 2023-10-18 | Outpatient (REF) | payer MEDICAID, SELFPAY ==
[2023-10-18 10:20] LABS: Hematocrit 37.2 % (40-54); Hemoglobin 12.3 g/dL (13.0-16.5); Mean Corp Hgb Conc 33.1 g/dL (32-36); Mean Corpuscular Hgb 29.3 pg (27.0-32.0); Mean Corpuscular Volume 88.6 fL (80-94); Mean Platelet Vol. 8.7 fl (6.2-12.0); Platelet Count 217 K/mm3 (150-450); RBC Distribution Width CV 14.7 % (11.6-14.6); RBC Distribution Width SD 47.7 fl (35.1-43.9); White Blood Count 6.2 K/mm3 (4.4-11.0)
[2023-10-18 10:48] LABS: Anion Gap 6 (5-15); BUN 6 mg/dL (7-18); BUN/Creat Ratio 5.4 RATIO (10-20); Calcium,Total 8.9 mg/dL (8.5-10.1); Chloride 101 mmol/L (98-107); Creatinine, Serum 1.12 mg/dL (0.70-1.30); EST Glomerular Filtration Rate 72 mL/min (>60); Est Glom Filt Rate - Afr Amer 88 mL/min (>60); Glucose 86 mg/dL (74-106); Potassium 3.8 mmol/L (3.5-5.1); Sodium Level 134 mmol/L (136-145)
== END | disposition home or self-care (01) ==
LOC: OLS.SANC 05:00
PROVIDERS: Visit Provider Internal Medicine
DX: D64.9 Anemia, unspecified (principal); J44.9 Chronic obstructive pulmonary disease, unspecified; I10 Essential (primary) hypertension
CPT/HCPCS: 36415; 80048; 85027

== ENCOUNTER → 2023-10-28 | Outpatient (REF) | payer MEDICAID, SELFPAY ==
[2023-10-29 13:08] LABS: PSA, Free 0.24 ng/mL
== END | disposition home or self-care (01) ==
LOC: OLS.SANC 05:00
PROVIDERS: Visit Provider Internal Medicine
DX: D64.9 Anemia, unspecified (principal); J44.9 Chronic obstructive pulmonary disease, unspecified; I10 Essential (primary) hypertension; Z12.5 Encounter for screening for malignant neoplasm of prostate
CPT/HCPCS: 36415; 84153; 84154

== ENCOUNTER → 2023-11-22 | Outpatient (REF) | payer MEDICAID, SELFPAY | END | disposition home or self-care (01) | LOC: OLS.SANC 05:00 | PROVIDERS: Visit Provider Internal Medicine | DX: Z79.899 Other long term (current) drug therapy (principal) | CPT/HCPCS: 36415; 80177 ==

== ENCOUNTER → 2024-01-18 | Outpatient (REF) | payer MEDICAID, SELFPAY ==
[2024-01-18 10:01] LABS: Hematocrit 43.9 % (40-54); Hemoglobin 14.6 g/dL (13.0-16.5); Mean Corp Hgb Conc 33.3 g/dL (32-36); Mean Corpuscular Hgb 30.3 pg (27.0-32.0); Mean Corpuscular Volume 91.1 fL (80-94); Mean Platelet Vol. 9.5 fl (6.2-12.0); Platelet Count 202 K/mm3 (150-450); RBC Distribution Width CV 14.2 % (11.6-14.6); RBC Distribution Width SD 47.8 fl (35.1-43.9); Red Blood Count 4.82 M/mm3 (4.6-6.2); White Blood Count 6.6 K/mm3 (4.4-11.0)
== END | disposition home or self-care (01) ==
LOC: OLS.SANC 04:30
PROVIDERS: Visit Provider Internal Medicine
DX: D64.9 Anemia, unspecified (principal); J44.9 Chronic obstructive pulmonary disease, unspecified
CPT/HCPCS: 36415; 85027

== ENCOUNTER → 2024-01-19 | Outpatient (REF) | payer MEDICAID, SELFPAY ==
[2024-01-19 08:32] LABS: Hematocrit 40.1 % (40-54); Hemoglobin 13.6 g/dL (13.0-16.5); Mean Corp Hgb Conc 33.9 g/dL (32-36); Mean Corpuscular Hgb 30.2 pg (27.0-32.0); Mean Corpuscular Volume 89.1 fL (80-94); Mean Platelet Vol. 8.9 fl (6.2-12.0); Platelet Count 199 K/mm3 (150-450); RBC Distribution Width CV 13.7 % (11.6-14.6); White Blood Count 7.3 K/mm3 (4.4-11.0)
[2024-01-19 09:00] LABS: Anion Gap 6 (5-15); BUN 8 mg/dL (7-18); BUN/Creat Ratio 7.8 RATIO (10-20); Calcium,Total 9.2 mg/dL (8.5-10.1); Chloride 105 mmol/L (98-107); Creatinine, Serum 1.03 mg/dL (0.70-1.30); EST Glomerular Filtration Rate 80 mL/min (>60); Est Glom Filt Rate - Afr Amer 96 mL/min (>60); Glucose 90 mg/dL (74-106); PSA,Total - Annual Screen 0.96 ng/mL (0.00-4.00); Potassium 3.9 mmol/L (3.5-5.1); Sodium Level 137 mmol/L (136-145)
== END | disposition home or self-care (01) ==
LOC: OLS.SANC 05:00
PROVIDERS: Visit Provider Internal Medicine
DX: D64.9 Anemia, unspecified (principal); J44.9 Chronic obstructive pulmonary disease, unspecified; I10 Essential (primary) hypertension; G93.1 Anoxic brain damage, not elsewhere classified; Z12.5 Encounter for screening for malignant neoplasm of prostate
CPT/HCPCS: 36415; 80048; 84153; 85027; G0103

== ENCOUNTER → 2024-02-18 | Outpatient (REF) | payer MEDICAID, SELFPAY ==
[2024-02-18 08:23] LABS: Vitamin D,25 Hydroxy 38.1 ng/mL
== END | disposition home or self-care (01) ==
LOC: OLS.SANC 05:00
PROVIDERS: Visit Provider Internal Medicine
DX: D64.9 Anemia, unspecified (principal); Z74.09 Other reduced mobility; R48.8 Other symbolic dysfunctions
CPT/HCPCS: 36415; 82306

== ENCOUNTER → 2024-02-24 | Outpatient (REF) | payer MEDICAID, SELFPAY ==
[2024-02-24 09:20] LABS: Valproic Acid (Depakene) Level 81 ug/mL (50-100)
== END | disposition home or self-care (01) ==
LOC: OLS.SANC 05:00
PROVIDERS: Visit Provider Internal Medicine
DX: D64.9 Anemia, unspecified (principal); J44.9 Chronic obstructive pulmonary disease, unspecified; I10 Essential (primary) hypertension; G93.1 Anoxic brain damage, not elsewhere classified; Z79.899 Other long term (current) drug therapy
CPT/HCPCS: 36415; 80164

== ENCOUNTER → 2024-03-17 | Outpatient (REF) | payer MEDICAID, SELFPAY ==
[2024-03-17 07:52] LABS: Hematocrit 39.6 % (40-54); Hemoglobin 13.6 g/dL (13.0-16.5); Mean Corp Hgb Conc 34.3 g/dL (32-36); Mean Corpuscular Hgb 31.6 pg (27.0-32.0); Mean Corpuscular Volume 91.9 fL (80-94); Mean Platelet Vol. 9.2 fl (6.2-12.0); Platelet Count 193 K/mm3 (150-450); RBC Distribution Width CV 13.2 % (11.6-14.6); RBC Distribution Width SD 45.1 fl (35.1-43.9); Red Blood Count 4.31 M/mm3 (4.6-6.2); White Blood Count 6.7 K/mm3 (4.4-11.0)
[2024-03-17 08:11] LABS: ALB/GLOB Ratio 0.8 RATIO (0.9-2.4); AST(SGOT) 20 U/L (15-37); Alanine Aminotransfer ALT/SGPT 20 U/L (16-61); Albumin, Serum 2.9 g/dL (3.2-5.0); Alkaline Phosphatase 76 U/L (45-117); Anion Gap 5 (5-15); BUN 6 mg/dL (7-18); BUN/Creat Ratio 5.3 RATIO (10-20); Chloride 107 mmol/L (98-107); Cholesterol 207 mg/dL (200); Creatinine, Serum 1.14 mg/dL (0.70-1.30); EST Glomerular Filtration Rate 71 mL/min (>60); Est Glom Filt Rate - Afr Amer 86 mL/min (>60); Globulin 3.5 g/dL (2.2-4.2); Glucose 95 mg/dL (74-106); High Density Lipoprotein 41 mg/dL; Protein, Total 6.4 g/dL (6.4-8.2); Sodium Level 138 mmol/L (136-145); Triglycerides 153 mg/dL; Valproic Acid (Depakene) Level 81 ug/mL (50-100); Very Low Density Lipoprotein 31 mg/dL (5-40)
== END | disposition home or self-care (01) ==
LOC: OLS.SANC 05:00
PROVIDERS: Visit Provider Internal Medicine
DX: D64.9 Anemia, unspecified (principal); J44.9 Chronic obstructive pulmonary disease, unspecified; I10 Essential (primary) hypertension
CPT/HCPCS: 36415; 80053; 80061; 80164; 85027

== ENCOUNTER → 2024-04-20 | Outpatient (REF) | payer MEDICAID, SELFPAY ==
[2024-04-20 09:01] LABS: Hematocrit 42.3 % (40-54); Hemoglobin 14.3 g/dL (13.0-16.5); Mean Corp Hgb Conc 33.8 g/dL (32-36); Mean Corpuscular Hgb 31.2 pg (27.0-32.0); Mean Corpuscular Volume 92.2 fL (80-94); Mean Platelet Vol. 9.1 fl (6.2-12.0); Platelet Count 198 K/mm3 (150-450); Red Blood Count 4.59 M/mm3 (4.6-6.2); White Blood Count 6.4 K/mm3 (4.4-11.0)
[2024-04-20 09:42] LABS: Anion Gap 7 (5-15); BUN 7 mg/dL (7-18); BUN/Creat Ratio 5.8 RATIO (10-20); Calcium,Total 8.8 mg/dL (8.5-10.1); Chloride 107 mmol/L (98-107); Creatinine, Serum 1.21 mg/dL (0.70-1.30); EST Glomerular Filtration Rate 66 mL/min (>60); Est Glom Filt Rate - Afr Amer 80 mL/min (>60); Glucose 88 mg/dL (74-106); Potassium 4.1 mmol/L (3.5-5.1); Sodium Level 141 mmol/L (136-145)
== END | disposition home or self-care (01) ==
LOC: OLS.SANC 05:00
PROVIDERS: Visit Provider Internal Medicine
DX: D64.9 Anemia, unspecified (principal); J44.9 Chronic obstructive pulmonary disease, unspecified; I10 Essential (primary) hypertension
CPT/HCPCS: 36415; 80048; 85027

== ENCOUNTER → 2024-04-28 | Outpatient (REF) | payer MEDICAID, SELFPAY ==
[2024-04-28 10:21] LABS: PSA,Total - Annual Screen 0.48 ng/mL (0.00-4.00)
== END | disposition home or self-care (01) ==
LOC: OLS.SANC 05:00
PROVIDERS: Visit Provider Internal Medicine
DX: D64.9 Anemia, unspecified (principal); N40.0 Benign prostatic hyperplasia without lower urinary tract symptoms; Z79.899 Other long term (current) drug therapy; Z12.5 Encounter for screening for malignant neoplasm of prostate
CPT/HCPCS: 36415; 84153; G0103

== ENCOUNTER → 2024-05-09 21:00 | Outpatient (REF) | payer MEDICAID, SELFPAY ==
[2024-05-09 09:08] LABS: Color, Urine Straw (Yellow); Glucose, Dipstick Normal (Normal); Ketone-Dipstick Negative (Negative); Leukocyte Esterase-Dipstick Negative /ul (Negative); Nitrite-Dipstick Negative (Negative); Occult Blood-Urine Negative /ul (Negative); Protein-Dipstick Negative (Negative); Urine Bilirubin Dipstick Negative (Negative); Urine Clarity Clear (Clear); Urine Urobilinogen Normal (Normal); Urine pH 6.5 (5.0 - 8.0)
[2024-05-09 09:19] LABS: Bacteria 0 SEEN /hpf (None Seen); Mucous, Urine 0 SEEN /hpf (<or=2+); Red Blood Cells-Urine 0 SEEN /hpf (0-5); Squamous Epithelial Cells - UA 0 SEEN /hpf (0-5); White Blood Cells 0 SEEN /hpf (0-5)
== END ==
LOC: OLS.SANC 21:00
PROVIDERS: Visit Provider Internal Medicine
DX: R39.9 Unspecified symptoms and signs involving the genitourinary system (principal)
CPT/HCPCS: 81001; 87077; 87086; 87088; 87186

== ENCOUNTER → 2024-07-21 | Outpatient (REF) | payer MEDICAID, SELFPAY ==
[2024-07-21 07:47] LABS: Hemoglobin 14.3 g/dL (13.0-16.5); Mean Corpuscular Hgb 30.9 pg (27.0-32.0); Mean Corpuscular Volume 90.7 fL (80-94); Mean Platelet Vol. 9.1 fl (6.2-12.0); Platelet Count 140 K/mm3 (150-450); RBC Distribution Width SD 42.9 fl (35.1-43.9); Red Blood Count 4.63 M/mm3 (4.6-6.2); White Blood Count 7.7 K/mm3 (4.4-11.0)
[2024-07-21 08:01] LABS: Anion Gap 7 (5-15); BUN 8 mg/dL (7-18); Calcium,Total 8.9 mg/dL (8.5-10.1); Chloride 105 mmol/L (98-107); Creatinine, Serum 1.15 mg/dL (0.70-1.30); EST Glomerular Filtration Rate 70 mL/min (>60); Est Glom Filt Rate - Afr Amer 85 mL/min (>60); Glucose 90 mg/dL (74-106); Potassium 3.8 mmol/L (3.5-5.1); Sodium Level 139 mmol/L (136-145)
== END | disposition home or self-care (01) ==
LOC: OLS.SANC 05:00
PROVIDERS: Visit Provider Internal Medicine
DX: I48.91 Unspecified atrial fibrillation (principal); D64.9 Anemia, unspecified; N40.0 Benign prostatic hyperplasia without lower urinary tract symptoms; J44.9 Chronic obstructive pulmonary disease, unspecified; I10 Essential (primary) hypertension
CPT/HCPCS: 36415; 80048; 85027

== ENCOUNTER → 2024-08-23 | Outpatient (REF) | payer MEDICAID, SELFPAY ==
[2024-08-23 09:11] LABS: Valproic Acid (Depakene) Level 76 ug/mL (50-100)
== END | disposition home or self-care (01) ==
LOC: OLS.SANC 05:00
PROVIDERS: Visit Provider Internal Medicine
DX: D64.9 Anemia, unspecified (principal); J44.9 Chronic obstructive pulmonary disease, unspecified; I10 Essential (primary) hypertension
CPT/HCPCS: 36415; 80164

== ENCOUNTER → 2024-08-28 | Outpatient (REF) | payer MEDICAID, SELFPAY ==
[2024-08-28 09:04] LABS: Valproic Acid (Depakene) Level 73 ug/mL (50-100)
== END | disposition home or self-care (01) ==
LOC: OLS.SANC 05:00
PROVIDERS: Visit Provider Internal Medicine
DX: Z79.899 Other long term (current) drug therapy (principal)
CPT/HCPCS: 36415; 80164

== ENCOUNTER → 2024-11-17 | Outpatient (REF) | payer MEDICAID, SELFPAY ==
--- OUTSIDE RECORDS SUMMARY | 2024-11-17 04:32 | XMS RPT_ITS | CCD ---
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 Name Role Phone YENI SIMMONS Unavailable Unavailable IRIS, YATISH Unavailable Unavailable Juani BALLESTEROS, Christa Qureshi Primary Care Provider Antonella Marrero Primary Care Provider [phone] Vargas BALLESTEROS, Yun Unavailable [phone] Pradeep BALLESTEROS, Christiano Unavailable Cesar RN, Leslie Unavailable Unavailable Vargas BALLESTEROS, Yun Unavailable [phone] [facility] Primary Care Unavailable EDI CARDONA Attending Unavailable JENNIFER, PALLAVI Primary Care Unavailable ANDREAS LIND Attending Unavailable JENNIFER, PALLAVI Primary Care Unavailable Cassi Mansfield Unavailable Jennifer BALLESTEROS, Pallavi Primary Care Provider [phone] ANTONELLA MARRERO Primary Care Unavailable YUN RUBIO Attending Unavailable RENATA COLINDRES Attending Unavailable ANTONELLA MARRERO Primary Care Unavailable LATOYA GONZALEZ Admitting Unavailable CHANTELLE DEAN Attending Unavailable GALILEO FORRESTER Unavailable ANTONELLA MARRERO Primary Care Unavailable LÓPEZ, MASROOR Referring Unavailable MARIBEL MASROOR Attending Unavailable ANTONELLA MARRERO Primary Care Unavailable KatsaAntonella Owens Attending Provider Unavailab le Katsaros DEISY, Antonella Attending Provider Unavailab leobardo Katsavicky OLIVAS, Antonella Attending Unavailable Katsaros DEISY, Antonella Attending Unavailable Katsaros DEISY, Antonella Attending Unavailable Katsaros DEISY, Antonella Attending Unavailable Katsaros DEISY, Antonella Attending Unavailable Katsaros DEISY, Antonella Attending Unavailable Katsaros DEISY, Antonella Attending Unavailable Katsaros DEISY, Antonella Attending Unavailable Main Lion Attending Unavailabl e Katsaros DEISY, Antonella Attending Unavailable Katsaros DEISY, Antonella Attending Unavailable Katsaros OLS, Antonella Attending Unavailable Katsaros OLS, Antonella Attending Unavailable Katsaros OLS, Antonella Attending Unavailable Katsaros OLS, Antonella Attending Unavailable Katsaros OLS, Antonella Attending Unavailable Katsaros OLS, Antonella Attending Unavailable Katsaros OLS, Antonella Attending Unavailable Katsaros OLS, Antonella Referring Unavailable Katsaros OLS, Antonella Attending Unavailable Allergies Allergy Classification Reported Allergen(s) Allergy Type Date of Onset Reaction(s) Facility Haloperidol (2 sources) Haloperidol Drug Allergy 8 Unknown [facility] paregoric (2 sources) paregoric Drug Allergy 2 [facility] (5 sources) PARAGORIC; Translations: [PARAGORIC] Propensity to adverse reactions to drug (disorder) 4 Swelling [facility] Other [place] [facility] (5 sources) Haloperidol; Translations: [HALOPERIDOL LACTATE] Drug Allergy [address] [facility] (20 sources) Haloperidol Drug Allergy 8 Unknown [facility] (20 sources) paregoric Drug Allergy 2 [facility] NEGATED: Highlighted row has been ruled out! (1 source) Other Propensity to adverse reactions [address] [facility] Medications Current Medications Medication Drug Class(es) Dates Sig (Normalized) Sig (Original) ALBUTEROL, BULK, MISC (1 source) ALBUTEROL, BULK, MISC Active aspirin 81 mg chewable tablet (1 source) Platelet Aggregation Inhibitor, Nonsteroidal Anti-inflammatory Drug Start: 03-03-2017 take 1 tablet by mouth once daily aspirin 81 MG chewable tablet Take 1 tablet by mouth daily 30 tablet 3 03/03/2017 Active benzonatate (1 source) Non-narcotic Antitussive BENZONATATE ORAL Take by mouth. Active bifidobacterium animalis [id number] unt / lactobacillus acidophilus [id number] unt oral capsule (1 source) Start: 03-03-2017 Probiotic Product (FLORAREJI BIFIDSHAHRIAR) CAPS 2 capsules by PEG Tube route daily (with breakfast) 60 capsule 5 03/03/2017 Active cholecalciferol 0.125 mg oral tablet (7 sources) Vitamin D Start: 03-11-2020 take 1 tablet by mouth once daily cholecalciferol (VITAMIN D-3) 5,000 unit tab Take 1 tablet by mouth once daily. 03/11/2020 Active End: 05-19-2023 take 1 capsule by mouth in the morning cholecalciferol (Vitamin D-3) 125 MCG (5000 UT) capsule Take 5,000 Units by mouth in the morning. 0 05/19/2023 Discontinued vitamin D (KANDACE CALCIFEROL) 125 MCG (5000 UT) CAPS capsule Take 5,000 Units by mouth daily 0 Active codeine phosphate 2 mg/ml / guaiFENesin 20 mg/ml oral solution (6 sources) Opioid Agonist Start: 11-14-2021 End: 11-17-2021 take 5 mL by mouth three times daily as needed for cough guaiFENesin-codeine (TUSSI-ORGANIDIN NR) 100-10 MG/5ML syrup Indications: Dyspnea and respiratory abnormalities Take 5 mLs by mouth 3 times daily as needed for Cough for up to 3 days. 45 mL 0 11/14/2021 11/17/2021 Active End: 05-19-2023 guaiFENesin-codeine (Robitus sin-AC) 100-10 MG/5ML syrup Take by mouth. 0 05/19/2023 Discontinued ferrous sulfate 325 mg delayed release oral tablet (1 source) ferrous sulfate 325 mg (65 mg iron) EC tablet Take 325 mg by mouth. Active finasteride 5 mg oral tablet (1 source) 5-alpha Reductase Inhibitor take 1 tablet by mouth once daily finasteride (PROSCAR) 5 mg tablet Take 5 mg by mouth once daily. Active folic acid 1 mg oral tablet (20 sources) Start: 6 End: 4 folic acid (Folvite) 1 MG tablet daily. 11/01/2015 Active gabapentin 100 mg oral capsule (1 source) Anti-epileptic Agent take 1 capsule by mouth three times daily gabapentin (NEURONTIN) 100 mg capsule Take 100 mg by mouth three times a day. Active guaifenesin/dextrometh orphan (GUAIFENESIN DM ORAL) (1 source) guaifenesin/dext romet horphan (GUAIFENESIN DM ORAL) Take by mouth. Active levETIRAcetam 750 mg oral tablet (20 sources) Start: 7 End: 4 take 1 tablet by mouth in the morning levETIRAcetam (Keppra) 750 MG tablet Take 1 tablet by mouth in the morning and 1 tablet before bedtime. 03/03/2017 Active End: 05-19-2023 levETIRAcetam (Spritam) 750 MG Tablet Disintegrating Soluble Magnesium (1 source) Start: 03-03-2017 take 1 tablet by mouth three times daily at mealtime Magnesium 400 MG CAPS Take 1 tablet by mouth 3 times daily (with meals) 0 03/03/2017 Active melatonin 3 mg oral tablet (20 sources) Start: 11-18-2018 End: 08-21-2023 melatonin 3 MG tablet 3 mg Nightly as needed. 11/18/2018 Active menthol 0.04 mg/mg topical gel (20 sources) Menthol, Topical Analgesic, (Biofreeze Roll-On) 4 % gel Apply topically every 8 hours as needed. Active menthol (BIOFREE ZE, MENTHOL,) 4 % topical gel Apply to affected area three times daily as needed. Active miconazole nitrate 0.02 mg/mg topical powder (1 source) Azole Antifungal Start: 03-03-2017 miconazole (MICOTIN) 2 % powder Apply topically 2 times daily. 45 g 1 03/03/2017 Active Nirmatrelvir&Riton avir 300/100 (Paxlovid, 300/100,) 20 x 150 MG & 10 x 100MG tablet therapy pack (20 sources) Start: 05-21-2023 take 3 tablets by mouth every twelve hours Nirmatrelvir&Franco navir 300/100 (Paxlovid, 300/100,) 20 x 150 MG & 10 x 100MG tablet therapy pack Take 3 tablets by mouth in the morning and 3 tablets in the evening. 30 tablet 05/21/2023 4:59 PM EST 05/21/2023 Active Start: 05-21-2023 take 3 tablets by mo [facility] every twelve hours Nirmatrelvir&Ritonavir 300/100 (Paxlovid , 300/100,) 20 x 150 MG & 10 x 100MG tablet therapy pack Take 3 tablets by mouth in the morning and 3 tablets in the evening. 30 tablet 0 05/21/2023 Active pantoprazole 40 mg delayed release oral tablet (20 sources) Proton Pump Inhibitor Start: 02-24-2023 End: 05-22-2023 pantoprazole (ProtoNix) 40 MG EC tablet 40 mg 2 times daily. 03/21/2023 Active take 1 tablet by mouth once tian y pantoprazole (PROTONIX) 40 MG tablet Take 40 mg by mouth daily 0 Active Polyethylene Glycol 1450 POWD (1 source) Polyethylene Gly col 1450 POWD by Does not apply route 0 Active polyethylene glycol 3350 10247 mg powder for oral solution (20 sources) Osmotic Laxative Start: 9 End: 4 polyethylene glycol, PEG, 3350 (Glycolax) 17 GM/SCOOP powder Take 17 g by mouth daily. 11/18/2018 Active polyethylene glycol 3350 145434 mg / potassium chloride 2970 mg / sodium bicarbonate 6740 mg / sodium chloride 5860 mg / sodium sulfate 27351 mg powder for oral solution (1 source) Osmotic Laxative Start: 4 End: 4 peg 3350-Electrolytes (GOLYTELY) 236-22.74-6.74 -5.86 gram suspension Indications: Anemia, unspecified type Take 4,000 mL by mouth one time only for 1 dose. Refer to printed prep instructions from your provider. 4000 mL 03/03/2024 03/03/2024 Active predniSONE 50 mg oral tablet (1 source) Start: 2 End: 2 take 1 tablet by mouth once daily predniSONE (DELTASONE) 50 MG tablet Take 1 tablet by mouth daily for 5 days 5 tablet 0 11/14/2021 11/19/2021 Active promethazine hydrochloride 25 mg oral tablet (6 sources) Phenothiazine Start: 4 End: 4 take 1 tablet by mouth every six hours as needed for nausea and vomiting promethazine (Phenergan) 25 MG tablet Take 1 tablet (25 mg) by mouth every 6 hours as needed for nausea or vomiting for up to 7 days. 20 tablet 0 08/16/2023 08/23/2023 Active take 25 mg rectal ro carina every six hours as needed promethazine (PROMETHEGAN) 25 mg supposi tory 25 mg by RECTAL route every 6 hours as needed. Active pyridoxine hydrochloride 25 mg oral tablet (20 sources) Start: 11-18-2018 pyridoxine (Vi tamin B-6) 25 MG tablet 25 mg daily. 11/18/2018 Active sodium chloride flush 0.9 % injection 3 mL (1 source) Start: 11-14-2021 sodium chlorid e flush 0.9 % injection 3 mL thiamine 100 mg oral tablet (20 sources) Start: 03-03-2017 End: 08-21-2023 thiamine (Vitamin B-1) 100 M G tablet 100 mg daily. 03/03/2017 Active Start: 03-03-2017 vitamin B-1 (T HIAMINE) 100 MG tablet 1 tablet by PEG Tube route daily 30 tablet 3 03/03/2017 Active Throat Lozenges (Cough Drops Menthol) lozenge (20 sources) Throat Lozenges (Cough Drops Menthol) lozenge Dissolve 1 lozenge in the mouth Once as needed. Active Throat Lozenges (Cough Drops Menthol) lozenge Dissolve 1 lozenge in the mouth Once as needed. 0 Suspended Throat Lozenges (Cough Drops Menthol) lozenge Dissolve 1 lozenge in the mouth Once as needed. 0 Active traMADol hydrochloride 50 mg oral tablet (15 sources) Opioid Agonist Start: 06-01-2023 traMADol (Ultr am) 50 MG tablet 06/01/2023 Active Completed/Discontinued Medications Medication Drug Class(es) Dates Sig (Normalized) Sig (Original) Acetaminophen (20 sources) Start: 08-19-2023 End: 08-21-2023 take 1 tablet by mouth every six hours as needed for pain and fever acetaminophen (Tylenol) tablet 650 mg Start: 05-20-2023 End: 05-22-2023 take 1 tablet by mouth every six hours as needed for pain and fever acetaminophen (Tylenol) tablet 650 mg Start: 03-03-2017 acetaminophen (TYLENOL) 160 MG/5ML suspension 20.31 mLs by Per NG tube route every 4 hours as needed for Fever or Pain 240 mL 3 03/03/2017 Active take 2 tablets by mo [facility] every six hours as needed for fever and pain and pain acetaminophen (Tylenol) 325 MG tablet Take 2 tablets by mouth every 6 hours as needed for fever, mild pain (1-3) or moderate pain (4-6). Active acetaminophen 32 5 mg cap Take by mouth. Active acetaminophen (T ylenol) 325 MG tablet Take by mouth. 0 Active acetaminophen 325 mg / oxyCODONE hydrochloride 5 mg oral tablet (1 source) Opioid Agonist Start: 06-07-2023 End: 06-07-2023 oxyCODONE-acetaminophen (Percocet) 5-325 MG per tablet 1 tablet [id number] actuat albuterol 0.09 mg/actuat metered dose inhaler (20 sources) beta2-Adrene rgic Agonist Start: 08-19-2023 End: 08-21-2023 take 2 puff(s) by inhalation every six hours as needed for wheezing 2 puff, Inhalation, Every 6 hours PRN, shortness of breath, wheezing, Starting on Francy 08/19/23 at 1303 Start: 07-09-2023 albuterol 108 (90 Base) MCG/ACT inhaler 4 puff take 1 puff(s) by in halation every two hours as needed Albuterol Sulfate 108 (90 Base) MCG/ACT aerosol powder Inhale 1 puff every 2 hours as needed. Active Albuterol Sulfat e 108 (90 Base) MCG/ACT aerosol powder Inhale. 0 Active albuterol 0.833 mg/ml / ipratropium bromide 0.167 mg/ml inhalation solution (20 sources) Anticholinergic, beta2-Adrenergic Agonist Start: 08-19-2023 End: 08-21-2023 3 mL, Nebulization, Every 6 hours PRN, shortness of breath, wheezing, Starting on [facility] 08/19/23 at 1303 Start: 05-20-2023 End: 05-22-2023 ipratropium-albuterol (Duo-N eb) 0.5-2.5 mg/3 mL nebulizer solution 3 mL Start: 03-03-2017 take 3 mL by inhalat ion twice daily ipratropium-albuterol (DUONEB) 0.5-2.5 (3) MG/3ML SOLN nebulizer solution Inhale 3 mLs into the lungs 2 times daily 360 mL 0 03/03/2017 Active take 3 mL by inhalat ion every six hours as needed ipratropium-albuterol (Duo-Neb) 0.5-2.5 mg/3 mL nebulizer solution Inhale 3 mL every 6 hours as needed. Active ipratropium-albu terol (DUONEB) 0.5 mg-3 mg(2.5 mg base)/3 mL nebu Inhale 3 mL as instructed. Active apixaban 5 mg oral tablet (20 sources) Factor Xa Inhibitor Start: 05-20-2023 End: 05-22-2023 take 5 mg by mouth twice daily 5 mg, Oral, 2 times daily, First dose on Francy 05/20/23 at 1200, Anticoagulant Start: 05-20-2023 End: 05-20-2023 apixaban (Eliquis) tablet 5 mg bacitracin 0.5 unt/mg topical ointment (5 sources) End: 05-19-2023 bacitracin 500 UNIT/GM ointment baclofen 10 mg oral tablet (20 sources) gamma-Aminobutyr ic Acid-ergic Agonist Start: 08-19-2023 End: 08-21-2023 take 10 mg by mouth three times daily 10 mg, Oral, 3 times daily, First dose on Wed08/19/23 at 1400 Start: 03-11-2020 End: 05-22-2023 take 10 mg by mouth three times daily 10 mg, Oral, 3 times daily, First dose on Francy 05/20/23 at 2100 baclofen (Liores al) 10 MG tablet Take 10 mg by mouth. 0 Active bisacodyl 5 mg delayed release oral tablet (20 sources) Stimulant Laxative Start: 08-19-2023 End: 08-21-2023 take 1 tablet by mouth every twenty-four hours as needed for constipation 5 mg, Oral, Daily PRN, constipation, Starting on Francy 08/19/23 at 1303, Do not give within 1 hour of antacids, milk, or dairy products. Do not crush, chew, or split. Start: 05-20-2023 End: 05-22-2023 take 10 mg rectal route every twenty-four hours as needed for constipation 10 mg, Rectal, Daily PRN, constipation, Starting on Francy 05/20/23 at 2053 Start: 05-20-2023 End: 05-22-2023 take 1 tablet by mouth every twenty-four hours as needed for constipation 5 mg, Oral, Daily PRN, constipation, Starting on Francy 05/20/23 at 2053, Do not give within 1 hour of antacids, milk, or dairy products. Do not crush, chew, or split. carvedilol 3.125 mg oral tablet (6 sources) alpha-Adrenergic Ofelia, beta-Adrenergic Ofelia End: 05-19-2023 take 1 tablet by mouth in the morning carvedilol (Coreg) 3.125 MG tablet Take 3.125 mg by mouth in the morning and 3.125 mg in the evening. Take with meals. 0 05/19/2023 Discontinued dexamethasone 6 mg oral tablet (4 sources) Corticosteroid Start: 05-20-2023 End: 05-21-2023 take 6 mg by mouth once daily 6 mg, Oral, Daily, First dose on Francy 05/20/23 at 2100, For 10 doses Start: 05-20-2023 End: 05-20-2023 dexAMETHasone (Decadron) tab let 8 mg 0.3 ml enoxaparin sodium 100 mg/ml prefilled syringe (2 sources) Low Molecular Weight Heparin Start: 05-20-2023 End: 05-21-2023 inject 30 mg by subcutaneous injection twice daily 30 mg, SubCUTAneous, 2 times daily, First dose on Francy 05/20/23 at 2100, Indication of Use: Prophylaxis-DVT/PE escitalopram 10 mg oral tablet (20 sources) Serotonin Reuptake Inhibitor Start: 08-19-2023 End: 08-21-2023 take 15 mg by mouth once daily 15 mg, Oral, Daily, First dose on Francy 08/19/23 at 1315 Start: 05-20-2023 End: 05-22-2023 take 15 mg by mouth once daily 15 mg, Oral, Daily, Fir st dose on Francy 05/20/23 at 2100 take 1.5 tablets by mouth once daily escitalopram (Lexapro) 10 MG tablet Take 1.5 tablets by mouth daily. Active take 1 tablet by angel th once daily escitalopram oxalate (LEXAPRO) 10 mg tablet Take 10 mg by mouth once daily. Active take 1 tablet by angel th in the morning escitalopram (Lexapro) 20 MG tablet Take 20 mg by mouth in the morning. 0 Active 12 hr guaiFENesin 600 mg extended release oral tablet (20 sources) Start: 08-19-2023 End: 08-21-2023 take 600 mg by mouth twice daily as needed for congestion 600 mg, Oral, 2 times daily PRN, congestion, Starting on Francy 08/19/23 at 1431, Administer with plenty of fluids to ensure proper action. Do not crush, chew, or split. Start: 05-20-2023 End: 05-22-2023 guaiFENesin (Mucinex) 12 hr tablet 600 mg take 3 tablets by mo uth every eight hours as needed guaiFENesin (Humibid 3) 400 MG tablet Take 400 mg by mouth every 8 hours as needed for congestion. Active iopamidol (ISOVUE-370) 76 % injection 75 mL (1 source) Start: 11-14-2021 End: 11-14-2021 iopamidol (ISOVUE-370) 76 % injection 75 mL iopamidol (Isovue-370) 76 % injection 75 mL (4 sources) Start: 08-16-2023 End: 08-16-2023 iopamidol (Isovue-370) 76 % injection 75 mL Start: 05-30-2023 End: 05-30-2023 iopamidol (Isovue-370) 76 % injection 75 mL magnesium hydroxide 80 mg/ml oral suspension (20 sources) Start: 08-19-2023 End: 08-21-2023 take 30 mL by mouth every twenty-four hours as needed for gastroesophageal reflux disease 30 mL, Oral, Daily PRN, heartburn, Starting on Francy 08/19/23 at 1304, Follow dose with 8 oz of water. magnesium hydrox ananda (MILK OF MAGNESIA ORAL) Take by mouth. Active mirtazapine 7.5 mg oral tablet (6 sources) End: 05-19-2023 take 1 tablet by mouth once daily mirtazapine (Remeron) 7.5 MG tablet Take 7.5 mg by mouth Nightly. 0 05/19/2023 Discontinued 1 ml naloxone hydrochloride 0.4 mg/ml injection (2 sources) Opioid Antagonist Start: 08-19-2023 End: 08-21-2023 naloxone (Narcan) injection 0.4 mg naltrexone hydrochloride 50 mg oral tablet (20 sources) Opioid Antagonist Start: 08-19-2023 End: 08-21-2023 take 50 mg by mouth once daily 50 mg, Oral, Daily, First dose on Francy 08/19/23 at 1315 Start: 03-11-2020 End: 05-22-2023 take 50 mg by mouth once daily 50 mg, Oral, Daily, Fir st dose on Francy 05/20/23 at 2100 24 hr nicotine 0.875 mg/hr transdermal system (1 source) Cholinergic Nicotinic Agonist Start: 06-07-2023 End: 06-07-2023 nicotine (Nicoderm, Step 1) 21 MG/24HR patch 1 patch 2 ml ondansetron 2 mg/ml injection (7 sources) Serotonin-3 Receptor Antagonist Start: 08-16-2023 End: 08-16-2023 ondansetron (Zofran) injection 4 mg Start: 08-16-2023 End: 08-16-2023 ondansetron (Zofran) injecti on 4 mg End: 05-19-2023 ondansetron (Zofran) 4 MG/5M L solution ondansetron ODT (Zofran-ODT) disintegrating tablet 4 mg (2 sources) Start: 05-20-2023 End: 05-22-2023 take 1 tablet by mouth every eight hours as needed for nausea and vomiting ondansetron ODT (Zofran-ODT) disintegrating tablet 4 mg oxyCODONE hydrochloride 5 mg oral tablet (2 sources) Opioid Agonist Start: 08-19-2023 End: 08-21-2023 take 1 tablet by mouth every six hours as needed for pain and pain oxyCODONE (Roxicodone) immediate release tablet 5 mg pantoprazole (ProtoNix) 40 mg in sodium chloride (PF) 0.9 % 10 mL injection (2 sources) Start: 08-19-2023 End: 08-21-2023 pantoprazole (ProtoNix) 40 mg in sodium chloride (PF) 0.9 % 10 mL injection pantoprazole (ProtoNix) 80 mg in sodium chloride (PF) 0.9 % 20 mL injection (2 sources) Start: 08-19-2023 End: 08-19-2023 pantoprazole (ProtoNix) 80 mg in sodium chloride (PF) 0.9 % 20 mL injection perflutren protein A microsphere (Optison) 3 mL in sodium chloride (PF) 0.9 % 10 mL IV syringe (2 sources) Start: 05-17-2023 End: 05-17-2023 perflutren protein A microsphere (Optison) 3 mL in sodium chloride (PF) 0.9 % 10 mL IV syringe microencapsulated potassium chloride 20 meq extended release oral tablet (3 sources) Start: 08-20-2023 End: 08-20-2023 potassium chloride CR (Klor-Con M20) ER tablet 40 mEq Start: 03-03-2017 take 15 mL by mouth once potas sium chloride 20 MEQ/15ML (10%) oral solution 15 mLs by Per G Tube route daily 900 mL 0 03/03/2017 Active prochlorperazine 5 mg/ml injectable solution (2 sources) Phenothiazine Start: 08-19-2023 End: 08-21-2023 take 5 mg intravenously every six hours as needed for nausea and vomiting prochlorperazine (Compazine) injection 5 mg QUEtiapine 100 mg oral tablet (20 sources) Atypical Antipsychotic Start: 08-19-2023 End: 08-21-2023 take 200 mg by mouth twice daily 200 mg, Oral, 2 times daily, First dose on Francy 08/19/23 at 1315 Start: 03-11-2020 take 1 tablet by angel th once daily at bedtime QUEtiapine (SEROQUEL) 200 mg tablet Take 1 tablet by mouth daily at bedtime. 03/11/2020 Active Start: 11-18-2018 End: 05-22-2023 QUEtiapine (SEROquel) 200 MG tablet 200 mg 2 times daily. 11/18/2018 Active take 1 tablet by angel th once daily at bedtime QUEtiapine (SEROQUEL) 50 mg tablet Take 50 mg by mouth daily at bedtime. Active take 1 tablet by angel th three times daily QUEtiapine (SEROQUEL) 100 MG tablet Take 100 mg by mouth 3 times daily 0 Active regadenoson (Lexiscan) injection 0.4 mg (2 sources) Start: 08-19-2023 End: 08-21-2023 regadenoson (Lexiscan) injec tion 0.4 mg remdesivir (Veklury) 100 mg in sodium chloride 0.9 % 250 mL IVPB (2 sources) Start: 05-21-2023 End: 05-22-2023 100 mg, IntraVENous, at 500 mL/hr, Administer over 30 Minutes, Every 24 hours, First dose on Wed05/21/23 at 1000, For 2 doses, Flush line with at least 30 mL normal saline after remdesivir infusion is complete. Follow remdesivir protocol for approved priming and administration instructions. After infusion, flush line with at least 30 mL NS at same rate as remdesivir infusion., Suspected Indication (Select all that apply): Immunocomp Host Prophylaxis remdesivir (Veklury) 200 mg in sodium chloride 0.9 % 250 mL IVPB (2 sources) Start: 05-20-2023 End: 05-20-2023 remdesivir (Veklury) 200 mg in sodium chloride 0.9 % 250 mL IVPB 5 ml sodium chloride 9 mg/ml injection (12 sources) Start: 05-20-2023 End: 05-22-2023 10 mL, IntraVENous, Every 12 hours scheduled (2 times per day), First dose on Francy 05/20/23 at 2100 Start: 05-20-2023 End: 05-22-2023 take 100 mL intravenously every hour as needed, then take 20 mL intravenously every hour as needed 5-250 mL/hr, IntraVENous, PRN, if patient receiving piggyback infusions and maintenance fluids are not ordered OR KVO fluids to protect IV site / prevent frequent line interruptions/ long duration, Starting on [facility] 05/20/23 at 2053, For piggyback infusion, administer at same rate as piggyback for a total of 25 mL. Enter 25 mL into dose field and piggyback rate into rate field of order. If piggyback is infusing at a rate less than 100 mL/hr, enter 25 mL into dose field and 100 mL/hr into rate field of order. For KVO fluids, enter rate of 20 mL/hr or less into rate field of order. Start: 05-20-2023 End: 05-22-2023 take 10 mL intravenously once as needed 10 mL, IntraVENous, PRN, line care, Starting on [facility] 05/20/23 at 2053, After every IV line use Start: 05-19-2023 End: 05-20-2023 sodium chloride 0.9 % bolus 30 mL tamsulosin hydrochloride 0.4 mg oral capsule (3 sources) alpha-Adrenergic Ofelia Start: 08-19-2023 End: 08-21-2023 tamsulosin (Flomax) 24 hr capsule 0.4 mg tiotropium 0.018 mg inhalation powder (2 sources) Anticholinergic Start: 05-21-2023 End: 05-22-2023 tiotropium (Spiriva) 18 MCG per inhalation capsule 18 mcg divalproex sodium 125 mg delayed release oral capsule (20 sources) Mood Stabilizer, Anti-epileptic Agent Start: 08-19-2023 End: 08-21-2023 take 500 mg by mouth three times daily 500 mg, Oral, 3 times daily, First dose on Francy 08/19/23 at 1400, Do not crush or chew. Start: 05-20-2023 End: 05-22-2023 take 500 mg by mouth three times daily 500 mg, Oral, 3 times daily, First dose on Francy 05/20/23 at 2100, Do not crush or chew. Start: 03-11-2020 take 4 capsules by m outh three times daily divalproex sprinkle (DEPAKOTE SPRINKLES) 125 mg capsule Take 4 capsules by mouth three times daily. 03/11/2020 Active divalproex (Depa kote) 125 MG EC tablet Take 500 mg by mouth. 0 Active vitamin b6 50 mg oral tablet (2 sources) Start: 08-19-2023 End: 08-21-2023 take 25 mg by mouth once daily 25 mg, Oral, Daily, First dose on Francy 08/19/23 at 1315 Problems Active Problems Problem Classification Problem Date Documented Date Episodic/Chronic Alcohol-related disorders (20 sources) Alcohol abuse; Translations: [Alcohol abuse, uncomplicated] Onset: 06-08-2013 Resolved: 01-18-2020 02-14-2017 Chronic Anxiety disorders (2 sources) Posttraumatic stress disorder; Translations: [Post-traumatic stress disorder, unspecified] Onset: 01-04-2018 01-04-2018 Chronic Cardiac dysrhythmias (1 source) Unspecified atrial fibrillation; Translations: [Unspecified atrial fibrillation] Onset: 08-04-2024 Chronic Chronic obstructive pulmonary disease and bronchiectasis (20 sources) Emphysematous bronchitis; Translations: [Chronic obstructive pulmonary disease, unspecified] Onset: 03-16-2016 12-18-2016 Chronic Chronic obstructive pulmonary disease and bronchiectasis (1 source) Bronchitis; Translations: [Bronchitis, not specified as acute or chronic] Episodic Coma; stupor; and brain damage (2 sources) Anoxic encephalopathy; Translations: [Anoxic brain damage, not elsewhere classified] Onset: 01-04-2018 01-04-2018 Chronic Deficiency and other anemia (1 source) Iron deficiency anemia due to blood loss; Translations: [Iron deficiency anemia secondary to blood loss (chronic)] Onset: 01-18-2020 01-18-2020 Chronic Deficiency and other anemia (1 source) Anemia; Translations: [Anemia, unspecified] 03-03-2024 Episodic Deficiency and other anemia (1 source) Anemia, unspecified; Translations: [Anemia, unspecified] Onset: 09-14-2024 Episodic Epilepsy; convulsions (1 source) Seizure disorder; Translations: [Epilepsy, unspecified, not intractable, without status epilepticus] Onset: 01-04-2018 01-04-2018 Chronic Esophageal disorders (20 sources) Gastroesophageal reflux disease; Translations: [Gastro-esophageal reflux disease without esophagitis] Onset: 10-25-2016 12-18-2016 Chronic Essential hypertension (20 sources) Hypertensive disorder; Translations: [Essential (primary) hypertension] Onset: 04-11-2016 Resolved: 01-18-2020 10-25-2016 Chronic Hepatitis (1 source) Chronic hepatitis, unspecified; Translations: [Chronic hepatitis, unspecified] Onset: 12-31-2023 Chronic Hyperplasia of prostate (5 sources) Benign prostatic hypertrophy with outflow obstruction; Translations: [Benign prostatic hyperplasia with lower urinary tract symptoms] Onset: 10-27-2023 10-27-2023 Chronic Impulse control disorders, NEC (2 sources) Impulse control disorder; Translations: [Impulse disorder, unspecified] Onset: 10-27-2018 12-04-2019 Chronic Mood disorders (1 source) Depressive disorder; Translations: [Depression] Onset: 01-04-2018 01-04-2018 Chronic Other aftercare (1 source) Other terminal operator (current) drug therapy; Translations: [Other terminal operator (current) drug therapy] Onset: 09-14-2024 Episodic Other connective tissue disease (2 sources) Pain in right lower limb; Translations: [Pain in right leg] 08-19-2023 Episodic Other connective tissue disease (2 sources) Pain of right calf; Translations: [Pain in right lower leg] 08-19-2023 Episodic Other diseases of kidney and ureters (2 sources) Renal mass; Translations: [Other specified disorders of kidney and ureter] 05-30-2023 Chronic Other diseases of kidney and ureters (3 sources) Acquired renal cystic disease; Translations: [Cyst of kidney, acquired] 06-01-2023 Episodic Other diseases of kidney and ureters (2 sources) Kidney lesion; Translations: [Disorder of kidney and ureter, unspecified] 10-27-2023 Episodic Other hematologic conditions (1 source) Macrocytosis - no anemia; Translations: [Other specified diseases of blood and blood-forming organs] Onset: 09-13-2016 09-13-2016 Chronic Other liver diseases (1 source) Inflammatory disease of liver; Translations: [Inflammatory liver disease, unspecified] Onset: 04-23-2016 04-23-2016 Chronic Other lower respiratory disease (4 sources) Dyspnea; Translations: [Dyspnea, unspecified] Episodic Other lower respiratory disease (2 sources) Hypoxia; Translations: [Hypoxemia] 05-20-2023 Episodic Other nervous system disorders (20 sources) Disorder of brain; Translations: [Encephalopathy, unspecified] Onset: 02-23-2017 02-23-2017 Chronic Other nutritional; endocrine; and metabolic disorders (20 sources) Obesity caused by energy imbalance; Translations: [Other obesity due to excess calories] Onset: 04-02-2023 04-02-2023 Chronic Pancreatic disorders (not diabetes) (20 sources) Chronic pancreatitis; Translations: [Other chronic pancreatitis] Onset: 02-14-2017 02-14-2017 Chronic Charissa-; endo-; and myocarditis; cardiomyopathy (except that caused by tuberculosis or sexually transmitted disease) (3 sources) Cardiomyopathy; Translations: [Cardiomyopathy, unspecified] 04-27-2023 Chronic Residual codes; unclassified (20 sources) Obstructive sleep apnea syndrome; Translations: [Obstructive sleep apnea (adult) (pediatric)] Onset: 04-02-2023 04-02-2023 Chronic Residual codes; unclassified (20 sources) Tobacco user; Translations: [Tobacco use] Onset: 02-19-2017 02-19-2017 Episodic Residual codes; unclassified (1 source) Altered mental status; Translations: [Altered mental status, unspecified] 06-07-2023 Episodic Schizophrenia and other psychotic disorders (1 source) Psychotic disorder; Translations: [Unspecified psychosis not due to a substance or known physiological condition] Onset: 01-04-2018 01-04-2018 Chronic Substance-related disorders (2 sources) Continuous opioid dependence; Translations: [Opioid dependence, uncomplicated] Onset: 03-05-2016 12-07-2019 Chronic Unclassified (1 source) Unknown / UNK(Unknown) Onset: 05-07-2017 Unclassified (20 sources) Sepsis; Translations: [Blood poisoning] Onset: 02-19-2017 02-19-2017 Past or Other Problems Problem Classification Problem Date Documented Da te Episodic/Chronic Abdominal pain (14 sources) Generalized abdominal pain; Translations: [Generalized abdominal pain] Onset: 6 Resolved: 6 05-30-2023 Episodic Administrative/social admission (1 source) Other reduced mobility; Translations: [Other reduced mobility] Onset: 4 Episodic Alcohol-related disorders (2 sources) Alcohol intoxication; Translations: [Alcohol use, unspecified with intoxication, unspecified] Onset: 6 Resolved: 0 04-24-2016 Episodic Aspiration pneumonitis; food/vomitus (1 source) Aspiration pneumonia; Translations: [Pneumonitis due to inhalation of food and vomit] Onset: 7 Resolved: 0 01-18-2020 Episodic Cardiac dysrhythmias (1 source) Tachycardia; Translations: [Tachycardia, unspecified] Onset: 4 Episodic Coagulation and hemorrhagic disorders (1 source) Thrombocytopenic disorder; Translations: [Thrombocytopenia, unspecified] Onset: 6 Resolved: 0 05-27-2021 Chronic Coagulation and hemorrhagic disorders (1 source) Thrombocytopenia co-occurrent and due to alcoholism; Translations: [Other secondary thrombocytopenia] Onset: 7 09-16-2016 Episodic Epilepsy; convulsions (20 sources) Seizure; Translations: [Unspecified convulsions] Onset: 7 02-19-2017 Episodic Fever of unknown origin (20 sources) Disorder characterized by fever; Translations: [Fever, unspecified] Onset: 7 02-22-2017 Episodic Fluid and electrolyte disorders (4 sources) Ketoacidosis; Translations: [Alcoholic ketoacidosis] Onset: 6 Resolved: 0 05-27-2021 Episodic Gastrointestinal hemorrhage (17 sources) Upper gastrointestinal bleeding; Translations: [Gastrointestinal hemorrhage, unspecified] Onset: 0 Resolved: 0 08-19-2023 Episodic Genitourinary symptoms and ill-defined conditions (1 source) Blood in urine; Translations: [Hematuria, unspecified] Onset: 7 Resolved: 0 01-18-2020 Episodic Intestinal infection (20 sources) Clostridium difficile diarrhea; Translations: [Enterocolitis due to Clostridium difficile, not specified as recurrent] Onset: 7 Resolved: 0 03-01-2017 Episodic Intestinal obstruction without hernia (1 source) Gastrointestinal obstruction; Translations: [Unspecified intestinal obstruction, unspecified as to partial versus complete obstruction] Onset: 8 Resolved: 0 01-18-2020 Episodic Nausea and vomiting (3 sources) Nausea with vomiting, unspecified; Translations: [Nausea and vomiting] Onset: 6 Resolved: 6 05-27-2021 Episodic Nonspecific chest pain (1 source) Chest pain at rest; Translations: [Chest pain, unspecified] Onset: 7 Resolved: 0 01-18-2020 Episodic Nutritional deficiencies (1 source) Deficiency of macronutrients; Translations: [Unspecified severe protein-calorie malnutrition] Onset: 6 Resolved: 0 01-18-2020 Chronic Other aftercare (1 source) Long-term current use of opiate analgesic drug; Translations: [long term 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 care registered nurse (current) use of opiate analgesic] Onset: 6 01-17-2017 Episodic Other connective tissue disease (20 sources) Pain in lower limb; Translations: [Pain in leg, unspecified] Onset: 4 01-13-2015 Episodic Other connective tissue disease (2 sources) Pain in right leg; Translations: [Pain in right leg] Onset: 4 Episodic Other connective tissue disease (2 sources) Pain in right lower leg; Translations: [Pain in right lower leg] Onset: 4 Episodic Other diseases of kidney and ureters (20 sources) Cyst of kidney; Translations: [Cyst of kidney, acquired] Onset: 5 10-25-2016 Episodic Other diseases of kidney and ureters (2 sources) Disorder of kidney and ureter, unspecified; Translations: [Disorder of kidney and ureter, unspecified] Onset: 4 Episodic Other diseases of kidney and ureters (2 sources) Other obstructive and reflux uropathy; Translations: [Other obstructive and reflux uropathy] Onset: 4 Episodic Other disorders of stomach and duodenum (1 source) Delayed gastric emptying; Translations: [Functional dyspepsia] Onset: 8 10-01-2017 Episodic Other endocrine disorders (1 source) Hypoglycemia; Translations: [Hypoglycemia, unspecified] Onset: 6 Resolved: 6 04-24-2016 Chronic Other gastrointestinal disorders (2 sources) Dysphagia; Translations: [Dysphagia, unspecified] Onset: 9 11-11-2018 Episodic Other lower respiratory disease (1 source) Nodule of lung; Translations: [Solitary pulmonary nodule] Onset: 4 07-28-2016 Episodic Other lower respiratory disease (1 source) Abnormal findings on diagnostic imaging of lung; Translations: [Other nonspecific abnormal finding of lung field] Onset: 7 09-18-2016 Episodic Other lower respiratory disease (2 sources) Shortness of breath; Translations: [Shortness of breath] Onset: 4 Episodic Other nervous system disorders (1 source) Other symbolic dysfunctions; Translations: [Other symbolic dysfunctions] Onset: 4 Episodic Other non-traumatic joint disorders (20 sources) Hip pain; Translations: [Pain in unspecified hip] Onset: 4 10-25-2016 Episodic Other screening for suspected conditions (not mental disorders or infectious disease) (5 sources) Raised prostate specific antigen; Translations: [Elevated prostate specific antigen [PSA]] Onset: 4 10-27-2023 Episodic Pancreatic disorders (not diabetes) (20 sources) Alcohol-induced acute pancreatitis; Translations: [Alcohol induced acute pancreatitis without necrosis or infection] Onset: 6 Resolved: 0 12-18-2016 Episodic Phlebitis; thrombophlebitis and thromboembolism (20 sources) Deep venous thrombosis; Translations: [Acute embolism and thrombosis of unspecified deep veins of unspecified lower extremity] Onset: 4 10-25-2016 Episodic Poisoning by other medications and drugs (20 sources) Poisoning by unspecified drugs, medicaments and biological substances, accidental (unintentional), initial encounter; Translations: [Poisoning by unspecified drug or medicinal substance] Onset: 7 02-19-2017 Episodic Residual codes; unclassified (1 source) History of operative procedure on lumbar spinal structure; Translations: [Other specified postprocedural states] Onset: 6 12-07-2019 Episodic Residual codes; unclassified (1 source) Neurocognitive disorder; Translations: [Unspecified symptoms and signs involving cognitive functions and awareness] Onset: 8 10-02-2017 Episodic Residual codes; unclassified (1 source) Altered mental status, unspecified; Translations: [Altered mental status, unspecified] Onset: 4 Episodic Respiratory failure; insufficiency; arrest (adult) (20 sources) Acute respiratory failure; Translations: [Acute respiratory failure with hypoxia] Onset: 7 02-23-2017 Episodic Septicemia (except in labor) (20 sources) Sepsis; Translations: [Sepsis, unspecified organism] Onset: 7 Resolved: 0 02-19-2017 Episodic Spondylosis; intervertebral disc disorders; other back problems (20 sources) Backache; Translations: [Dorsalgia, unspecified] Onset: 4 10-25-2016 Episodic Suicide and intentional self-inflicted injury (1 source) Suicidal thoughts; Translations: [Suicidal ideations] Onset: 8 Resolved: 0 01-18-2020 Episodic Urinary tract infections (2 sources) Urinary tract infection, site not specified; Translations: [Urinary tract infection, site not specified] Onset: 4 Episodic Viral infection (20 sources) Disease caused by 2019-nCoV; Translations: [COVID-19] Onset: 3 05-19-2023 Episodic Results Test Name Value Interpretation Reference Range Facility Valproate [Mass/Vol]Ordered By: Antonella Marrero on 08-28-2024 Valproic Acid (Depakene) Level 73 ug/mL 50-100 [facility] Comment on above: Valproic Acid concen trations >100 ug/mL are potentially toxic. Valproic Acid (Depakene) Lev caesar 08-28-2024 VALPROIC ACID 73 ug/mL Normal 50-100 [facility] Comment on above: Order Comment: 106.2 Result Comment: Valp roic Acid concentrations >100 ug/mL are potentially toxic. Performed By: #### L 500.2500, L100.0500 #### [facility] [address] [place], [address] Valproate [Mass/Vol]Ordered By: Antonella Marrero on 08-23-2024 Valproic Acid (Depakene) Level 76 ug/mL 50-100 [facility] Comment on above: Valproic Acid concen trations >100 ug/mL are potentially toxic. Valproic Acid (Depakene) Lev caesar 08-23-2024 VALPROIC ACID 76 ug/mL Normal 50-100 [facility] Comment on above: Order Comment: 106-2 Result Comment: Valp roic Acid concentrations >100 ug/mL are potentially toxic. Performed By: #### L 501.8100 #### [facility] [address] [place], [address] Basic Metabolic Profile (BMP )on 07-21-2024 BUN/CRE 7.0 RATIO Low 10-20 [facility] Comment on above: Order Comment: 106-2 Performed By: #### L 400.0001, M1 #### [facility] [address] [place], [address] CA,Total 8.9 mg/dL Normal 8.5-10.1 [facility] Comment on above: Order Comment: 106-2 Performed By: #### L 400.0001, M1.2199 #### [facility] [address] [place], [address] Chloride [Moles/Vol] 105 mmol/L Normal 98-107 [facility] Comment on above: Order Comment: 106-2 Performed By: #### L 400.0001, M100.2200 #### [facility] [address] [place], [address] CO2 [Moles/Vol] 27.0 mmol/L Normal 21.0-32.0 [facility] Comment on above: Order Comment: 106-2 Performed By: #### L 400.0001, #### [facility] [address] [place], [address] Creatinine [Mass/Vol] 1.15 mg/dL Normal 0.70-1.30 [facility] Comment on above: Order Comment: 106-2 Result Comment: The validity of the calculated GFR GFRAA in patients over 70 years has not been determined. Clinical correlation is essential. Performed By: #### L 400.0001, #### [facility] [address] [place], [address] EST GFR - AA 85 mL/min Normal >60 [facility] Comment on above: Order Comment: 106-2 Result Comment: Afri can Malagasy GFR Calc Performed By: #### L 400.0001, #### [facility] [address] [place], [address] GAP 7 Normal 5-15 [facility] Comment on above: Order Comment: 106-2 Performed By: #### L 400.0001, #### [facility] [address] [place], [address] GFR/1.73 sq M.predicted among non-blacks MDRD (S/P/Bld) [Vol rate/Area] 70 mL/min/{1.73_m2} Normal >60 [facility] Comment on above: Order Comment: 106-2 Result Comment: Non- GFR Calc Performed By: #### L 400.0001, #### [facility] [address] [place], [address] Glucose [Mass/Vol] 90 mg/dL Normal 74-106 [facility] Comment on above: Order Comment: 106-2 Performed By: #### L 400.0001, #### [facility] [address] [place], [address] Potassium [Moles/Vol] 3.8 mmol/L Normal 3.5-5.1 [facility] Comment on above: Order Comment: 106-2 Performed By: #### L 400.0001, #### [facility] [address] [place], [address] Sodium [Moles/Vol] 139 mmol/L Normal 136-145 [facility] Comment on above: Order Comment: 106-2 Performed By: #### L 400.0001, #### [facility] [address] [place], [address] Urea nitrogen [Mass/Vol] 8 mg/dL Normal 7-18 [facility] Comment on above: Order Comment: 106-2 Performed By: #### L 400.0001, #### [facility] [address] [place], [address] Blood urea nitrogen (BUN)/cr eatinine ratioOrdered By: Antonella Marrero on 07-21-2024 Urea nitrogen/Creatinine [Mass ratio] 7.0 mg/mg Low 10-20 [facility] CBC-Complete Blood Cnt No Di ffon 07-21-2024 Erythrocyte distribution width (RBC) [Ratio] 13.0 % Normal 11.6-14.6 [facility] Comment on above: Order Comment: 106-2 Performed By: #### L 400.0001, #### [facility] [address] [place], [address] Hematocrit (Bld) [Volume fraction] 42.0 % Normal 40-54 [facility] Comment on above: Order Comment: 106-2 Performed By: #### L 400.0001, #### [facility] [address] [place], [address] Hemoglobin (Bld) [Mass/Vol] 14.3 g/dL Normal 13.0-16.5 [facility] Comment on above: Order Comment: 106-2 Performed By: #### L 400.0001, #### [facility] [address] [place], [address] MCH (RBC) [Entitic mass] 30.9 pg Normal 27.0-32.0 [facility] Comment on above: Order Comment: 106-2 Performed By: #### L 400.0001, #### [facility] [address] [place], [address] MCHC (RBC) [Mass/Vol] 34.0 g/dL Normal 32-36 [facility] Comment on above: Order Comment: 106-2 Performed By: #### L 400.0001, #### [facility] [address] [place], [address] MCV (RBC) [Entitic vol] 90.7 fL Normal 80-94 [facility] Comment on above: Order Comment: 106-2 Performed By: #### L 400.0001, #### [facility] [address] [place], [address] Platelet mean volume (Bld) [Entitic vol] 9.1 fL Normal 6.2-12.0 [facility] Comment on above: Order Comment: 106-2 Performed By: #### L 400.0001, #### [facility] [address] [place], [address] Platelets (Bld) [#/Vol] 140 10*3/uL Low 150-450 [facility] Comment on above: Order Comment: 106-2 Performed By: #### L 400.0001, #### [facility] [address] [place], [address] RBC (Bld) [#/Vol] 4.63 10*6/uL Normal 4.6-6.2 [facility] Comment on above: Order Comment: 106-2 Performed By: #### L 400.0001, M100.2200 #### [facility] [address] [place], [address] RDW SD 42.9 fl Normal 35.1-43.9 [facility] Comment on above: Order Comment: 106-2 Performed By: #### L 400.0001, M100.2200 #### [facility] [address] [place], [address] WBC (Bld) [#/Vol] 7.7 10*3/uL Normal 4.4-11.0 [facility] Comment on above: Order Comment: 106-2 Performed By: #### L 400.0001, M100.2200 #### [facility] [address] [place], [address] Carbon dioxide measurementOr dered By: Antonella Marrero on 07-21-2024 CO2 [Moles/Vol] 27.0 mmol/L 21.0-32.0 [facility] Chloride measurementOrdered By: Antonella Marrero on 07-21-2024 Chloride [Moles/Vol] 105 mmol/L 98-107 [facility] Erythrocyte distribution wid th ratioOrdered By: Antonella Marrero on 07-21-2024 Erythrocyte distribution width (RBC) [Ratio] 13.0 % 11.6-14.6 [facility] Erythrocyte distribution wid th standard deviationOrdered By: Antonella Marrero on 07-21-2024 Erythrocyte distribution width (RBC) [Entitic vol] 42.9 fL 35.1-43.9 [facility] Estimated glomerular filtrat ion rate (GFR) AmericanOrdered By: Antonella Marrero on 07-21-2024 Estimated GFR (MDRD) Amer 85 mL/min >60 [facility] Comment on above: GFR Calc Glomerular filtration rate ( GFR) estimationOrdered By: Antonella Marrero on 07-21-2024 Estimated GFR (MDRD) Non-Af Amer 70 mL/min >60 [facility] Comment on above: Non- GFR Calc Glucose measurementOrdered B y: Antonella Marrero on 07-21-2024 Glucose [Mass/Vol] 90 mg/dL 74-106 [facility] Hematocrit Auto (Bld) [Volum e fraction]Ordered By: Antonella Marrero on 07-21-2024 Hematocrit (Bld) [Volume fraction] 42.0 % 40-54 [facility] Hemoglobin measurementOrdere d By: Antonella Marrero on 07-21-2024 Hemoglobin (Bld) [Mass/Vol] 14.3 g/dL 13.0-16.5 [facility] MCV (mean corpuscular volume ) determinationOrdered By: Antonella Marrero on 07-21-2024 MCV (RBC) [Entitic vol] 90.7 fL 80-94 [facility] Mean corpuscular hemoglobin (MCH) determinationOrdered By: Antonella Marrero on 07-21-2024 MCH (RBC) [Entitic mass] 30.9 pg 27.0-32.0 [facility] Mean corpuscular hemoglobin concentration (MCHC) determinationOrdered By: Antonella Marrero on 07-21-2024 MCHC (RBC) [Mass/Vol] 34.0 g/dL 32-36 [facility] Mean platelet volume determi nationOrdered By: Antonella Marrero on 07-21-2024 Platelet mean volume (Bld) [Entitic vol] 9.1 fL 6.2-12.0 [facility] Platelet countOrdered By: Romie Berry on 07-21-2024 Platelets (Bld) [#/Vol] 140 10*3/uL Low 150-450 [facility] Potassium measurementOrdered By: Antonella Marrero on 07-21-2024 Potassium [Moles/Vol] 3.8 mmol/L 3.5-5.1 [facility] RBC Auto (Bld) [#/Vol]Ordere d By: Antonella Marrero on 07-21-2024 RBC (Bld) [#/Vol] 4.63 10*6/uL 4.6-6.2 [facility] Serum anion gap measurementO rdered By: Antonella Marrero on 07-21-2024 Anion gap [Moles/Vol] 7 mmol/L 5-15 [facility] Serum or plasma calcium zakiya urement (mass/volume)Ordered By: Antonella Marrero on 07-21-2024 Calcium [Mass/Vol] 8.9 mg/dL 8.5-10.1 [facility] Serum or plasma creatinine m easurement (mass/volume)Ordered By: Antonella Marrero on 07-21-2024 Creatinine [Mass/Vol] 1.15 mg/dL 0.70-1.30 [facility] Comment on above: The validity of the calculated GFR & GFRAA in patients over 70 years has not been determined. Clinical correlation is essential. Serum or plasma urea nitroge n measurement (mass/volume)Ordered By: Antonella Marrero on 07-21-2024 Urea nitrogen [Mass/Vol] 8 mg/dL 7-18 [facility] Sodium levelOrdered By: Mitch Marrero on 07-21-2024 Sodium [Moles/Vol] 139 mmol/L 136-145 [facility] White blood cell (WBC) count Ordered By: Antonella Marrero on 07-21-2024 WBC (Bld) [#/Vol] 7.7 10*3/uL 4.4-11.0 [facility] 36on 06-26-2024 36 Please schedule Normal [facility] 36 This patient has had a prior lung screening CT scan at [facility]. According to our records, he/she is now due for an annual lung screening CT scan. Please evaluate and order this annual screening if your patient still meets lung screening criteria. Normal [facility] 36on 06-13-2024 36 Name of caller: Lizz wynn Contact phone number: [phone] Relationship to Patient: [facility] Provider: Dr. Marrero Practice: [facility] Chief Complaint/Reason for Call: Melissa stated that the Patient fell with no injures. Just letting the office know. Best time of day caller can be reached: AM Patient advised that office/PCP has 24-48 business hours to return their call: No Normal [facility] Urine Cultureon 05-12-2024 URC #3 Gram positive jerrod suggestive of a diphtheroid. Susceptibility not normally performed on this organism Urine Culture Urine Culture Urine Culture Julian cath urine is not recommended. Growth may represent distal urethral su. Staphylococcus epidermidis [place] Count 1000-10,000 Staphylococcus haemolyticus Staphylococcus haemolyticus GPR [place] Count 1000-10,000 Gram positive jerrod cefOXitin Susc Islt Doxycycline Islt TARI <=0.5 S Clindamycin.induced Susc Islt Gentamicin Islt TARI <=0.5 S Linezolid Islt TARI 1 S Nitrofurantoin Islt TARI <=16 S Oxacillin Susc Islt <=0.25 S Tetracycline Islt TARI <=1 S TMP SMX Islt TARI <=10 S Vancomycin Islt TARI 2 S Staphylococcus haemolyticus: REACTION cefOXitin Susc Islt NEG Doxycycline Islt TARI <=0.5 S Clindamycin.induced Susc Islt Gentamicin Islt TARI <=0.5 S Linezolid Islt TARI 2 S Nitrofurantoin Islt TARI <=16 S Oxacillin Susc Islt <=0.25 S Tetracycline Islt TARI <=1 S TMP SMX Islt TARI <=10 S Vancomycin Islt TARI <=0.5 S Normal [facility] Comment on above: Performed By: #### L 400.0001, #### [facility] [address] [place], [address] Urinalysis, Completeon 05-09 BACTERIA 0 SEEN Normal None Seen [facility] Comment on above: Order Comment: SC CATHETER SPECIMEN Performed By: #### L 400.0001, #### [facility] [address] [place], [address] EPI,SQUAMOUS 0 SEEN Normal 0-5 [facility] Comment on above: Order Comment: SC CATHETER SPECIMEN Performed By: #### L 400.0001, #### [facility] [address] [place], [address] Mucus Ql (Urine sed) [address] [facility] Comment on above: Order Comment: SC CATHETER SPECIMEN Performed By: #### L 400.0001, #### [facility] [address] [place], [address] RBC 0 SEEN Normal 0-5 [facility] Comment on above: Order Comment: SC CATHETER SPECIMEN Performed By: #### L 400.0001, .2199 #### [facility] [address] [place], [address] WBC 0 SEEN Normal 0-5 [facility] Comment on above: Order Comment: SC CATHETER SPECIMEN Performed By: #### L 400.0001, .2199 #### [facility] [address] [place], [address] BILIRUBIN URINE Negative Normal Negative [facility] Comment on above: Order Comment: SC CATHETER SPECIMEN Performed By: #### L 400.0001, #### [facility] [address] [place], [address] Clarity (U) Clear Normal Clear [facility] Comment on above: Order Comment: SC CATHETER SPECIMEN Performed By: #### L 400.0001, #### [facility] [address] [place], [address] Color (U) Straw Normal Yellow [facility] Comment on above: Order Comment: SC CATHETER SPECIMEN Performed By: #### L 400.0001, #### [facility] [address] [place], [address] GLUCOSE, UR Normal Normal Normal [facility] Comment on above: Order Comment: SC CATHETER SPECIMEN Performed By: #### L 400.0001, #### [facility] [address] [place], [address] KETONE UR Negative Normal Negative [facility] Comment on above: Order Comment: SC CATHETER SPECIMEN Performed By: #### L 400.0001, M1.2199 #### [facility] [address] [place], [address] LEUK ESTERASE Negative Normal Negative [facility] Comment on above: Order Comment: SC CATHETER SPECIMEN Performed By: #### L 400.0001, #### [facility] [address] [place], [address] Nitrite Ql (U) Negative Normal Negative [facility] Comment on above: Order Comment: SC CATHETER SPECIMEN Performed By: #### L 400.0001, #### [facility] [address] [place], [address] OCCULT BLOOD-UR Negative Normal Negative [facility] Comment on above: Order Comment: SC CATHETER SPECIMEN Performed By: #### L 400.0001, #### [facility] [address] [place], [address] pH UR 6.5 Normal 5.0 - 8.0 [facility] Comment on above: Order Comment: SC CATHETER SPECIMEN Performed By: #### L 400.0001, #### [facility] [address] [place], [address] PROT DIPSTX Negative Normal Negative [facility] Comment on above: Order Comment: SC CATHETER SPECIMEN Performed By: #### L 400.0001, #### [facility] [address] [place], [address] SP.GR. DIPSTX 1.010 Normal 1.002-1.03 0 [facility] Comment on above: Order Comment: SC CATHETER SPECIMEN Performed By: #### L 400.0001, #### [facility] [address], [address] UROBILI Normal Normal Normal [facility] Comment on above: Order Comment: SC CATHETER SPECIMEN Performed By: #### L 400.0001, #### [facility] [address], [address] Bilirubin Test strip Ql (U)O rdered By: Antonella Marrero on 05-08-2024 Bilirubin Ql (U) Negative Negative [facility] Epithelial cells.squamous LM Ql (Urine sed)Ordered By: Antonella Marrero on 05-08-2024 Epithelial cells.squamous LM.HPF (Urine sed) [#/Area] 0 /[HPF] 0-5 [facility] Glucose Ql (U)Ordered By: Romie Berry on 05-08-2024 Urine Glucose (UA) Normal mg/dl Normal [facility] Ketones Test strip Ql (U)Ord ered By: Antonella Marrero on 05-08-2024 Ketones Ql (U) Negative Negative [facility] Microscopic analysis of urin e for red blood cells (RBC)Ordered By: Antonella Marrero on 05-08-2024 Urine RBC 0 SEEN /hpf 0-5 [facility] Mucus LM Ql (Urine sed)Order ed By: Antonella Marrero on 05-08-2024 Mucus Ql (Urine sed) 0 SEEN /hpf [facility] Nitrite Test strip Ql (U)Ord ered By: Antonella Marrero on 05-08-2024 Nitrite Ql (U) Negative Negative [facility] Protein Test strip Ql (U)Ord ered By: Antonella Marrero on 05-08-2024 Protein Ql (U) Negative Negative [facility] Urine blood detectionOrdered By: Antonella Marrero on 05-08-2024 Urine Occult Blood Negative Negative [facility] Urine clarityOrdered By: Nidhi Marrero on 05-08-2024 Clarity (U) Clear Clear [facility] Urine color determinationOrd ered By: Antonella Marrero on 05-08-2024 Color (U) Straw Yellow [facility] Urine cultureOrdered By: Nidhi Marrero on 05-08-2024 Bacteria identified Cx Nom (U) Staphylococcus epidermidis Abnormal [facility] Bacteria identified Cx Nom (U) Staphylococcus haemolyticus Abnormal [facility] Bacteria identified Cx Nom (U) Positive Abnormal [facility] Urine leukocyte esterase det ection by dipstickOrdered By: Antonella Marrero on 05-08-2024 Leukocyte esterase Test strip Ql (U) Negative Negative [facility] Urine pHOrdered By: Antonella mitchell on 05-08-2024 pH (U) 6.5 [pH] 5.0 - 8.0 [facility] Urine sediment bacteria coun t by microscopy (number/high power field)Ordered By: Antonella Marrero on 05-08-2024 Bacteria LM.HPF (Urine sed) [#/Area] 0 /[HPF] None Seen [facility] Urine specific gravity measu rementOrdered By: Antonella Marrero on 05-08-2024 Specific gravity (U) [Rel density] 1.010 1.002-1.03 0 [facility] Urobilinogen Ql (U)Ordered B y: Antonella Marrero on 05-08-2024 Urine Urobilinogen Normal mg/dl Normal [facility] White blood cell countOrdere d By: Antonella Marrero on 05-08-2024 Urine WBC 0 SEEN /hpf 0-5 [facility] PSA,Total - Annual Screenon 04-28-2024 PSA,TOT SCREEN 0.48 ng/mL Normal 0.00-4.00 [facility] Comment on above: Order Comment: SC CATHETER SPECIMEN Result Comment: This test was performed using the TPSA assay method for the [employer] chemistry system. Values obtained with different assay methods cannot be used interchangably. When changing PSA assays in the course of monitoring a patient, additional sequential testing should be carried out to confirm baseline values. Performed By: #### L 400.0001, M100.2200 #### [facility] [address] [place] [address], [address] Screening prostate specific antigen (PSA) measurementOrdered By: Antonella Marrero on 04-28-2024 Prostate Specific Antigen Screen 0.48 ng/mL 0.00-4.00 [facility] Comment on above: This test was perfor med using the TPSA assay method for [employer] chemistry system. Values obtained with differentassay methods cannot be used interchangably.When changing PSA assays in the course of monitoring apatient, additional sequential testing should be carriedout to confirm baseline values. Basic Metabolic Profile (BMP )on 04-20-2024 BUN/CRE 5.8 RATIO Low 10-20 [facility] Comment on above: Order Comment: 106.2 Performed By: #### L 500.2500, L100.0500 #### [facility] [address] [place], [address] CA,Total 8.8 mg/dL Normal 8.5-10.1 [facility] Comment on above: Order Comment: 106.2 Performed By: #### L 500.2500, L100.0500 #### [facility] [address] [place], [address] Chloride [Moles/Vol] 107 mmol/L Normal 98-107 [facility] Comment on above: Order Comment: 106.2 Performed By: #### L 500.2500, L100.0500 #### [facility] [address] [place], [address] CO2 [Moles/Vol] 28.0 mmol/L Normal 21.0-32.0 [facility] Comment on above: Order Comment: 106.2 Performed By: #### L 500.2500, L100.0500 #### [facility] [address] [place], [address] Creatinine [Mass/Vol] 1.21 mg/dL Normal 0.70-1.30 [facility] Comment on above: Order Comment: 106.2 Result Comment: The validity of the calculated GFR GFRAA in patients over 70 years has not been determined. Clinical correlation is essential. Performed By: #### L 500.2500, L100.0500 #### [facility] [address] [place], [address] EST GFR - AA 80 mL/min Normal >60 [facility] Comment on above: Order Comment: 106.2 Result Comment: Afri can Malagasy GFR Calc Performed By: #### L 500.2500, L100.0500 #### [facility] [address] [place], [address] GAP 7 Normal 5-15 [facility] Comment on above: Order Comment: 106.2 Performed By: #### L 500.2500, L100.0500 #### [facility] [address], [address] GFR/1.73 sq M.predicted among non-blacks MDRD (S/P/Bld) [Vol rate/Area] 66 mL/min/{1.73_m2} Normal >60 [facility] Comment on above: Order Comment: 106.2 Result Comment: Non- GFR Calc Performed By: #### L 500.2500, L100.0500 #### [facility] [address] [place], [address] Glucose [Mass/Vol] 88 mg/dL Normal 74-106 [facility] Comment on above: Order Comment: 106.2 Performed By: #### L 500.2500, L100.0500 #### [facility] [address] [place], [address] Potassium [Moles/Vol] 4.1 mmol/L Normal 3.5-5.1 [facility] Comment on above: Order Comment: 106.2 Performed By: #### L 500.2500, L100.0500 #### [facility] [address] [place], [address] Sodium [Moles/Vol] 141 mmol/L Normal 136-145 [facility] Comment on above: Order Comment: 106.2 Performed By: #### L 500.2500, L100.0500 #### [facility] [address] [place], [address] Urea nitrogen [Mass/Vol] 7 mg/dL Normal 7-18 [facility] Comment on above: Order Comment: 106.2 Performed By: #### L 500.2500, L100.0500 #### [facility] [address] [place], [address] Blood urea nitrogen (BUN)/cr eatinine ratioOrdered By: Antonella Marrero on 04-20-2024 Urea nitrogen/Creatinine [Mass ratio] 5.8 mg/mg Low 10-20 [facility] CBC-Complete Blood Cnt No Di ffon 04-20-2024 Erythrocyte distribution width (RBC) [Ratio] 13.0 % Normal 11.6-14.6 [facility] Comment on above: Order Comment: 106.2 Performed By: #### L 500.2500, L100.0500 #### [facility] [address] [place], [address] Hematocrit (Bld) [Volume fraction] 42.3 % Normal 40-54 [facility] Comment on above: Order Comment: 106.2 Performed By: #### L 500.2500, L100.0500 #### [facility] [address] [place], [address] Hemoglobin (Bld) [Mass/Vol] 14.3 g/dL Normal 13.0-16.5 [facility] Comment on above: Order Comment: 106.2 Performed By: #### L 500.2500, L100.0500 #### [facility] [address] [place], [address] MCH (RBC) [Entitic mass] 31.2 pg Normal 27.0-32.0 [facility] Comment on above: Order Comment: 106.2 Performed By: #### L 500.2500, L100.0500 #### [facility] [address] [place], [address] MCHC (RBC) [Mass/Vol] 33.8 g/dL Normal 32-36 [facility] Comment on above: Order Comment: 106.2 Performed By: #### L 500.2500, L100.0500 #### [facility] [address] [place], [address] MCV (RBC) [Entitic vol] 92.2 fL Normal 80-94 [facility] Comment on above: Order Comment: 106.2 Performed By: #### L 500.2500, L100.0500 #### [facility] [address] [place], [address] Platelet mean volume (Bld) [Entitic vol] 9.1 fL Normal 6.2-12.0 [facility] Comment on above: Order Comment: 106.2 Performed By: #### L 500.2500, L100.0500 #### [facility] [address] [place], [address] Platelets (Bld) [#/Vol] 198 10*3/uL Normal 150-450 [facility] Comment on above: Order Comment: 106.2 Performed By: #### L 500.2500, L100.0500 #### [facility] [address] [place], [address] RBC (Bld) [#/Vol] 4.59 10*6/uL Low 4.6-6.2 [facility] Comment on above: Order Comment: 106.2 Performed By: #### L 500.2500, L100.0500 #### [facility] [address] [place], [address] RDW SD 44.0 fl High 35.1-43.9 [facility] Comment on above: Order Comment: 106.2 Performed By: #### L 500.2500, L100.0500 #### [facility] [address] [place], [address] WBC (Bld) [#/Vol] 6.4 10*3/uL Normal 4.4-11.0 [facility] Comment on above: Order Comment: 106.2 Performed By: #### L 500.2500, L100.0500 #### [facility] [address] [place], [address] Carbon dioxide measurementOr dered By: Antonella Marrero on 04-20-2024 CO2 [Moles/Vol] 28.0 mmol/L 21.0-32.0 [facility] Chloride measurementOrdered By: Antonella Marrero on 04-20-2024 Chloride [Moles/Vol] 107 mmol/L 98-107 [facility] Erythrocyte distribution wid th ratioOrdered By: Antonella Marrero on 04-20-2024 Erythrocyte distribution width (RBC) [Ratio] 13.0 % 11.6-14.6 [facility] Erythrocyte distribution wid th standard deviationOrdered By: Antonella Marrero on 04-20-2024 Erythrocyte distribution width (RBC) [Entitic vol] 44.0 fL High 35.1-43.9 [facility] Estimated glomerular filtrat ion rate (GFR) AmericanOrdered By: Antonella Marrero on 04-20-2024 Estimated GFR (MDRD) Amer 80 mL/min >60 [facility] Comment on above: GFR Calc Glomerular filtration rate ( GFR) estimationOrdered By: Antonella Marrero on 04-20-2024 Estimated GFR (MDRD) Non-Af Amer 66 mL/min >60 [facility] Comment on above: Non- GFR Calc Glucose measurementOrdered B y: Antonella Marrero on 04-20-2024 Glucose [Mass/Vol] 88 mg/dL 74-106 [facility] Hematocrit Auto (Bld) [Volum e fraction]Ordered By: Antonella Marrero on 04-20-2024 Hematocrit (Bld) [Volume fraction] 42.3 % 40-54 [facility] Hemoglobin measurementOrdere d By: Antonella Marrero on 04-20-2024 Hemoglobin (Bld) [Mass/Vol] 14.3 g/dL 13.0-16.5 [facility] MCV (mean corpuscular volume ) determinationOrdered By: Antonella Marrero on 04-20-2024 MCV (RBC) [Entitic vol] 92.2 fL 80-94 [facility] Mean corpuscular hemoglobin (MCH) determinationOrdered By: Antonella Marrero on 04-20-2024 MCH (RBC) [Entitic mass] 31.2 pg 27.0-32.0 [facility] Mean corpuscular hemoglobin concentration (MCHC) determinationOrdered By: Antonella Marrero on 04-20-2024 MCHC (RBC) [Mass/Vol] 33.8 g/dL 32-36 [facility] Mean platelet volume determi nationOrdered By: Antonella Marrero on 04-20-2024 Platelet mean volume (Bld) [Entitic vol] 9.1 fL 6.2-12.0 [facility] Platelet countOrdered By: Romie Berry on 04-20-2024 Platelets (Bld) [#/Vol] 198 10*3/uL 150-450 [facility] Potassium measurementOrdered By: Antonella Marrero on 04-20-2024 Potassium [Moles/Vol] 4.1 mmol/L 3.5-5.1 [facility] RBC Auto (Bld) [#/Vol]Ordere d By: Antonella Marrero on 04-20-2024 RBC (Bld) [#/Vol] 4.59 10*6/uL Low 4.6-6.2 [facility] Serum anion gap measurementO rdered By: Antonella Marrero on 04-20-2024 Anion gap [Moles/Vol] 7 mmol/L 5-15 [facility] Serum or plasma calcium zakiya urement (mass/volume)Ordered By: Antonella Marrero on 04-20-2024 Calcium [Mass/Vol] 8.8 mg/dL 8.5-10.1 [facility] Serum or plasma creatinine m easurement (mass/volume)Ordered By: Antonella Marrero on 04-20-2024 Creatinine [Mass/Vol] 1.21 mg/dL 0.70-1.30 [facility] Comment on above: The validity of the calculated GFR & GFRAA in patients over 70 years has not been determined. Clinical correlation is essential. Serum or plasma urea nitroge n measurement (mass/volume)Ordered By: Antonella Marrero on 04-20-2024 Urea nitrogen [Mass/Vol] 7 mg/dL - [facility] Sodium levelOrdered By: Mitch Marrero on 04-20-2024 Sodium [Moles/Vol] 141 mmol/L 136-145 [facility] White blood cell (WBC) count Ordered By: Antonella Marrero on 04-20-2024 WBC (Bld) [#/Vol] 6.4 10*3/uL 4.4-11.0 [facility] CBC-Complete Blood Cnt No Di ffon 03-17-2024 Erythrocyte distribution width (RBC) [Ratio] 13.2 % Normal 11.6-14.6 [facility] Comment on above: Order Comment: SC CATHETER SPECIMEN Performed By: #### L 400.0001, #### [facility] [address] [place], [address] Hematocrit (Bld) [Volume fraction] 39.6 % Low 40-54 [facility] Comment on above: Order Comment: SC CATHETER SPECIMEN Performed By: #### L 400.0001, #### [facility] [address] [place], [address] Hemoglobin (Bld) [Mass/Vol] 13.6 g/dL Normal 13.0-16.5 [facility] Comment on above: Order Comment: SC CATHETER SPECIMEN Performed By: #### L 400.0001, #### [facility] [address] [place], [address] MCH (RBC) [Entitic mass] 31.6 pg Normal 27.0-32.0 [facility] Comment on above: Order Comment: SC CATHETER SPECIMEN Performed By: #### L 400.0001, #### [facility] [address] [place], [address] MCHC (RBC) [Mass/Vol] 34.3 g/dL Normal 32-36 [facility] Comment on above: Order Comment: SC CATHETER SPECIMEN Performed By: #### L 400.0001, #### [facility] [address] [place], [address] MCV (RBC) [Entitic vol] 91.9 fL Normal 80-94 [facility] Comment on above: Order Comment: SC CATHETER SPECIMEN Performed By: #### L 400.0001, #### [facility] [address] [place], [address] Platelet mean volume (Bld) [Entitic vol] 9.2 fL Normal 6.2-12.0 [facility] Comment on above: Order Comment: SC CATHETER SPECIMEN Performed By: #### L 400.0001, #### [facility] [address] [place], [address] Platelets (Bld) [#/Vol] 193 10*3/uL Normal 150-450 [facility] Comment on above: Order Comment: SC CATHETER SPECIMEN Performed By: #### L 400.0001, #### [facility] [address] [place], [address] RBC (Bld) [#/Vol] 4.31 10*6/uL Low 4.6-6.2 [facility] Comment on above: Order Comment: SC CATHETER SPECIMEN Performed By: #### L 400.0001, #### [facility] [address] [place], [address] RDW SD 45.1 fl High 35.1-43.9 [facility] Comment on above: Order Comment: SC CATHETER SPECIMEN Performed By: #### L 400.0001, #### [facility] [address] [place], [address] WBC (Bld) [#/Vol] 6.7 10*3/uL Normal 4.4-11.0 [facility] Comment on above: Order Comment: SC CATHETER SPECIMEN Performed By: #### L 400.0001, #### [facility] [address] [place], [address] Comprehensive Metabolic Prof ilon 03-17-2024 Albumin [Mass/Vol] 2.9 g/dL Low 3.2-5.0 [facility] Comment on above: Order Comment: SC CATHETER SPECIMEN Performed By: #### L 400.0001, #### [facility] [address] [place], [address] Albumin/Globulin [Mass ratio] 0.8 {ratio} Low 0.9-2.4 [facility] Comment on above: Order Comment: SC CATHETER SPECIMEN Performed By: #### L 400.0001, #### [facility] [address] [place], [address] ALK P 76 U/L Normal 45-117 [facility] Comment on above: Order Comment: SC CATHETER SPECIMEN Performed By: #### L 400.0001, #### [facility] [address] [place], [address] ALT [Catalytic activity/Vol] 20 U/L Normal 16-61 [facility] Comment on above: Order Comment: SC CATHETER SPECIMEN Performed By: #### L 400.0001, #### [facility] [address] [place], [address] AST [Catalytic activity/Vol] 20 U/L Normal 15-37 [facility] Comment on above: Order Comment: SC CATHETER SPECIMEN Result Comment: Slig ht Hemolysis, Result may be falsely increased. Performed By: #### L 400.0001, #### [facility] [address] [place], [address] Bilirubin [Mass/Vol] 0.30 mg/dL Normal 0.20-1.00 [facility] Comment on above: Order Comment: SC CATHETER SPECIMEN Result Comment: For patients on eltrombopag therapy, use of Dimension [place] TBIL is not recommended. Performed By: #### L 400.0001, #### [facility] [address] [place], [address] BUN/CRE 5.3 RATIO Low 10-20 [facility] Comment on above: Order Comment: SC CATHETER SPECIMEN Performed By: #### L 400.0001, #### [facility] [address] [place], [address] CA,Total 9.0 mg/dL Normal 8.5-10.1 [facility] Comment on above: Order Comment: SC CATHETER SPECIMEN Performed By: #### L 400.0001, #### [facility] [address] [place], [address] Chloride [Moles/Vol] 107 mmol/L Normal 98-107 [facility] Comment on above: Order Comment: SC CATHETER SPECIMEN Performed By: #### L 400.0001, #### [facility] [address] [place], [address] CO2 [Moles/Vol] 26.0 mmol/L Normal 21.0-32.0 [facility] Comment on above: Order Comment: SC CATHETER SPECIMEN Performed By: #### L 400.0001, #### [facility] [address] [place], [address] Creatinine [Mass/Vol] 1.14 mg/dL Normal 0.70-1.30 [facility] Comment on above: Order Comment: SC CATHETER SPECIMEN Result Comment: The validity of the calculated GFR GFRAA in patients over 70 years has not been determined. Clinical correlation is essential. Performed By: #### L 400.0001, #### [facility] [address] [place], [address] EST GFR - AA 86 mL/min Normal >60 [facility] Comment on above: Order Comment: SC CATHETER SPECIMEN Result Comment: Afri can Malagasy GFR Calc Performed By: #### L 400.0001, #### [facility] [address] [place], [address] GAP 5 Normal 5-15 [facility] Comment on above: Order Comment: SC CATHETER SPECIMEN Performed By: #### L 400.0001, #### [facility] [address] [place], [address] GFR/1.73 sq M.predicted among non-blacks MDRD (S/P/Bld) [Vol rate/Area] 71 mL/min/{1.73_m2} Normal >60 [facility] Comment on above: Order Comment: SC CATHETER SPECIMEN Result Comment: Non- GFR Calc Performed By: #### L 400.0001, #### [facility] [address] [place], [address] Globulin (S) [Mass/Vol] 3.5 g/dL Normal 2.2-4.2 [facility] Comment on above: Order Comment: SC CATHETER SPECIMEN Performed By: #### L 400.0001, #### [facility] [address] [place], [address] Glucose [Mass/Vol] 95 mg/dL Normal 74-106 [facility] Comment on above: Order Comment: SC CATHETER SPECIMEN Performed By: #### L 400.0001, #### [facility] [address] [place], [address] Potassium [Moles/Vol] 4.0 mmol/L Normal 3.5-5.1 [facility] Comment on above: Order Comment: SC CATHETER SPECIMEN Result Comment: Slig ht Hemolysis, Result may be falsely increased. Performed By: #### L 400.0001, #### [facility] [address] [place], [address] Sodium [Moles/Vol] 138 mmol/L Normal 136-145 [facility] Comment on above: Order Comment: SC CATHETER SPECIMEN Performed By: #### L 400.0001, #### [facility] [address] [place], [address] T PROT 6.4 g/dL Normal 6.4-8.2 [facility] Comment on above: Order Comment: SC CATHETER SPECIMEN Performed By: #### L 400.0001, #### [facility] [address] [place], [address] Urea nitrogen [Mass/Vol] 6 mg/dL Low -18 [facility] Comment on above: Order Comment: SC CATHETER SPECIMEN Performed By: #### L 400.0001, #### [facility] [address] [place], [address] Lipid Profileon 03-17-2024 Cholesterol [Mass/Vol] 207 mg/dL High 200 [facility] Comment on above: Order Comment: SC CATHETER SPECIMEN Result Comment: <200 mg/dL Desirable 200-240 mg/dL Borderline >240 mg/dL High Risk Performed By: #### L 400.0001, #### [facility] [address] [place], [address] Cholesterol in HDL [Mass/Vol] 41 mg/dL Normal [facility] Comment on above: Order Comment: SC CATHETER SPECIMEN Result Comment: The drugs N-Acetylcysteine and Metamizole may falsely depress this assay. Reference Range HDL <40 mg/dL Low HDL Cholesterol HDL >or= 60 mg/dL High HDL Cholesterol Performed By: #### L 400.0001, #### [facility] [address] [place], [address] Cholesterol in LDL [Mass/Vol] 135 mg/dL High 0-130 [facility] Comment on above: Order Comment: SC CATHETER SPECIMEN Performed By: #### L 400.0001, #### [facility] [address] [place], [address] Cholesterol in VLDL [Mass/Vol] 31 mg/dL Normal 5-40 [facility] Comment on above: Order Comment: SC CATHETER SPECIMEN Performed By: #### L 400.0001, #### [facility] [address] [place], [place], [address] Triglyceride [Mass/Vol] 153 mg/dL Normal [facility] Comment on above: Order Comment: SC CATHETER SPECIMEN Result Comment: The drugs N-Acetylcysteine and Metamizole may falsely depress this assay. Serum Triglycerides Reference Interval Normal <150 mg/dL Borderline high 150 - 199 mg/dL High 200 - 499 mg/dL Very High > or = 500 mg/dL Performed By: #### L 400.0001, M100.2200 #### [facility] [address] [place], [address] Valproic Acid (Depakene) Lev caesar 03-17-2024 VALPROIC ACID 81 ug/mL Normal 50-100 [facility] Comment on above: Order Comment: SC CATHETER SPECIMEN Performed By: #### L 400.0001, M100.0 #### [facility] [address] [place], [address] CNOVon 03-03-2024 CNOV Office Visit ([facility] ) KARI ALLAN ([id number]) 1970 M Date Time Provider Department 03/03/24 9:15 AM ANDREAS LIND [facility] During your visit today, we recorded the following information about you: Pulse Blood pressure Height 100/minute 116/78 1.778 m Andreas Lind, LIBRARY CUSTOMER SERVICE CLERK.TUBULAR STOCK GLASS BULB MACHINE FORMER 03/03/2024 9:50 AM Signed CHIEF COMPLAINT: Patient presents with: Anemia HPI: Kari Allan is a 53 year old male with hx of DVT on eliquis, PTSD, seizure disorder, anxiety/depression, hx of dysphagia and esophageal stricture, and hx anoxic brain injury here today for Anemia. Hgb/Hct in 08/21/23 was 12.2/35.6. Repeat blood work 02/11/24 showed hgb/hct of 15.7/45.7. 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 He is not very reliable historian. VICKY noted. When asked about (+) findings, he denies any dysphagia, n/v, abdominal pain, diarrhea, constipation, rectal bleeding. He then states he has seen some bright red blood in the stool and it happens a couple times a day - this is intermittent. Usually happens after eating something hot or spicy. (+) fatigue Last colonoscopy was 2014. Current Outpatient Medications Medication Sig BENZONATATE ORAL Take by mouth. escitalopram oxalate (LEXAPRO) 10 mg tablet Take 10 mg by mouth once daily. ferrous sulfate 325 mg (65 mg iron) EC tablet Take 325 mg by mouth. finasteride (PROSCAR) 5 mg tablet Take 5 mg by mouth once daily. tamsulosin (FLOMAX) 0.4 mg Take 0.4 mg by mouth once daily. gabapentin (NEURONTIN) 100 mg capsule Take 100 mg by mouth three times a day. promethazine (PHENERGAN) 25 mg tablet Take 25 mg by mouth every 6 hours as needed. promethazine (PROMETHEGAN) 25 mg suppository 25 mg by RECTAL route every 6 hours as needed. QUEtiapine (SEROQUEL) 50 mg tablet Take 50 mg by mouth daily at bedtime. acetaminophen 325 mg cap Take by mouth. ALBUTEROL, BULK, MISC menthol (BIOFREEZE, MENTHOL,) 4 % topical gel Apply to affected area three times daily as needed. Bisacodyl (DULCOLAX) 5 mg tab Take 5 mg by mouth as needed for constipation. bisacodyl (DULCOLAX, BISACODYL,) 10 mg supp 10 mg by RECTAL route once daily as needed for constipation. apixaban (ELIQUIS) 5 mg tab(s) Take by mouth twice daily. guaifenesin/dextromethorpha n (GUAIFENESIN DM ORAL) Take by mouth. ipratropium-albuterol (DUONEB) 0.5 mg-3 mg(2.5 mg base)/3 mL nebu Inhale 3 mL as instructed. magnesium hydroxide (MILK OF MAGNESIA ORAL) Take by mouth. pantoprazole DR (PROTONIX) 40 mg tablet Take 1 tablet by mouth twice daily. On empty stomach at least 30 minutes before eating. baclofen (LIORESAL) 10 mg tablet Take 1 tablet by mouth three times daily as needed (muscle spasms). folic acid 1 mg tablet Take 1 tablet by mouth once daily. levETIRAcetam (KEPPRA) 750 mg tablet Take 1 tablet by mouth twice daily. pyridoxine, vitamin B6, (VITAMIN B6) 25 mg tablet Take 1 tablet by mouth once daily. QUEtiapine (SEROQUEL) 200 mg tablet Take 1 tablet by mouth daily at bedtime. thiamine (VITAMIN B1) 100 mg tablet Take 1 tablet by mouth once daily. melatonin 3 mg tablet Take 1 tablet by mouth daily at bedtime. polyethylene glycol 3350 (MIRALAX, GLYCOLAX) 17 gram packet Take 1 Packet by mouth once daily. divalproex sprinkle (DEPAKOTE SPRINKLES) 125 mg capsule Take 4 capsules by mouth three times daily. naltrexone (TREXAN) 50 mg tablet Take 1 tablet by mouth once daily. cholecalciferol (VITAMIN D-3) 5,000 unit tab Take 1 tablet by mouth once daily. No current facility-administered medications for this visit. ALLERGIES Allergen Reactions Haldol [Haloperidol* Unknown Copied from [facility] from halfway Paragoric Swelling Social History Tobacco Use Smoking status: Every Day Current packs/day: 1.00 Average packs/day: 1 pack/day for 30.0 years (30.0 ttl pk-yrs) Types: Cigarettes Smokeless tobacco: Never Vaping Use Vaping status: Never Used Substance Use Topics Alcohol use: Not Currently Comment: past hx of etoh abuse Drug use: No PAST MEDICAL HISTORY Diagnosis Date Acute respiratory failure (HCC) Alcohol abuse Alcohol withdrawal with delirium in inpatient treatment ([facility]) 03/15/2016 Anemia Back pain C. difficile colitis COPD (chronic obstructive pulmonary disease) ([facility]) Drug overdose DVT (deep venous thrombosis) ([facility]) Dysphasia Encephalopathy ETOH abuse 02/09/2016 GERD (gastroesophageal reflux disease) GI bleed 09/24/2019 Opiate dependence, continuous ([facility]) Pancreatitis Pulmonary nodule seen on imaging study Renal cyst Seizure (HCC) Sepsis (HCC) Tobacco abuse Weakness PAST SURGICAL HISTORY Procedure Laterality Date APPENDECTOMY HX BACK SURGERY HX CHOLECYSTECTOMY HX COLONOSCOPY 2014 EGD 02/16/2017 EGD 04/13/2019 EGD 12/13/2018 EGD 11/15/2018 EGD 11/11/2018 EGD 10/11/2018 EGD 03/01/2018 EGD 02/08/2018 EGD 01/18/2018 EGD DILATION (more content not included)... Normal [facility] Valproic Acid (Depakene) Lev caesar 02-24-2024 VALPROIC ACID 81 ug/mL Normal 50-100 [facility] Comment on above: Order Comment: 106.2 Performed By: #### L 500.2500, L100.0500 #### [facility] [address] [place], [place], [address] Vitamin D,25 Hydroxyon 02-17 Vitamin D 25-OH 38.1 ng/mL Normal [facility] Comment on above: Order Comment: 106-2 Result Comment: Maria Antonia min D 25(OH) Status Range Deficiency <20 ng/mL (50nmol/L) Insufficiency 20 - 30 ng/mL (50 - 75 nmol/L) Sufficiency 30 - 100 ng/mL (75 - 250 nmol/L) Toxicity >100 ng/mL (>250 nmol/L) Performed By: #### L 506.1000 #### [facility] [address] [place], [place], [address] ALLIED HEALTHon 02-11-2024 ALLIED HEALTH HNO ID: [id number] Author: RIVKA LAW CT Service: Radiology Author Type: Technologist Type: Allied Health Filed: 02/11/2024 11:20 Note Text: Radiology Service Progress Note PATIENT NAME: Kari Allan DATE OF SERVICE: February 11, 2024 TIME: 11:20 AM PATIENT IDENTITY VERIFICATION COMPLETED USING TWO (2) IDENTIFIERS: Name and Date of confirmed by patient verbally and Name and Date of confirmed by identification band. FALL SCREENING: Has the patient had 2 falls in the last year or 1 fall with injury or currently using an Ambulatory Assistive Device (Walker, Cane, Wheelchair, Crutches, etc.)? Emergency Room Patient: Screened in ED PATIENT GENDER DATA: Male PATIENT RELEVANT IMPLANT DATA REVIEWED: Not Applicable PATIENT PRESENTS WITH AN IMPLANTABLE OR ATTACHED RETURN TO SERVICE INSPECTOR: No RADIOLOGY DEPARTMENT: CT; Exam(s) Completed: Abdomen/Pelvis PERIPHERAL IV DATA: Not applicable SIGNED BY: Rivka Carroll, CT February 11, 2024 11:20 AM Normal [facility] CBC W Auto Differential pane l (Bld)on 02-11-2024 Basophils (Bld) [#/Vol] 0.03 10*3/uL Normal <0.11 [facility] Comment on above: Order Comment: Speci men Type: BLOOD SPECIMEN Ordering Facility: [facility] Address: [address] [place] [address] Performed By: #### 5 7021-8 #### [facility] CLIA [id number] [address] [place] [address] [place] Basophils/100 WBC (Bld) 0.4 % [facility] Comment on above: Order Comment: Speci men Type: BLOOD SPECIMEN Ordering Facility: [facility] Address: [address] [place] [address] Performed By: #### 5 7021-8 #### [facility] CLIA [id number] [address] [place] [address] [place] Differential cell count method Nom (Bld) Auto Normal [facility] Comment on above: Order Comment: Speci men Type: BLOOD SPECIMEN Ordering Facility: [facility] Address: [address] [place] [address] Performed By: #### 5 7021-8 #### [facility] CLIA [id number] [address] [place] [address] [place] Eosinophils (Bld) [#/Vol] 0.19 10*3/uL Normal <0.46 [facility] Comment on above: Order Comment: Speci men Type: BLOOD SPECIMEN Ordering Facility: [facility] Address: [address] [place] [address] Performed By: #### 5 7021-8 #### [facility] CLIA [id number] [address] [place] [address] [place] Eosinophils/100 WBC (Bld) 2.6 % [facility] Comment on above: Order Comment: Speci men Type: BLOOD SPECIMEN Ordering Facility: [facility] Address: [address] [place] [address] Performed By: #### 5 7021-8 #### [facility] CLIA [id number] [address] [place] Erythrocyte distribution width (RBC) [Ratio] 13.3 % Normal 11.5-15.0 [facility] Comment on above: Order Comment: Speci men Type: BLOOD SPECIMEN Ordering Facility: [facility] Address: [address] [place] [address] Performed By: #### 5 7021-8 #### [facility] CLIA [id number] [address] OF [facility] Hematocrit (Bld) [Volume fraction] 45.7 % Normal 39.0-51.0 [facility] Comment on above: Order Comment: Speci men Type: BLOOD SPECIMEN Ordering Facility: [facility] Address: [address] [place] [address] Performed By: #### 5 7021-8 #### [facility] CLIA [id number] [address] [place] Hemoglobin (Bld) [Mass/Vol] 15.7 g/dL Normal 13.0-17.0 [facility] Comment on above: Order Comment: Speci men Type: BLOOD SPECIMEN Ordering Facility: [facility] Address: [address] [place] [address] Performed By: #### 5 7021-8 #### [facility] CLIA [id number] [address] OF [place] Immature granulocytes (Bld) [#/Vol] 0.04 10*3/uL Normal <0.10 [facility] Comment on above: Order Comment: Speci men Type: BLOOD SPECIMEN Ordering Facility: [facility] Address: [address] [place] [address] Performed By: #### 5 7021-8 #### [facility] CLIA [id number] [address] Immature granulocytes/100 WBC (Bld) 0.5 % Normal [facility] Comment on above: Order Comment: Speci men Type: BLOOD SPECIMEN Ordering Facility: [facility] Address: [address] [place] [address] Performed By: #### 5 7021-8 #### [facility] CLIA [id number] [address] OF [place] Lymphocytes (Bld) [#/Vol] 1.69 10*3/uL Normal 1.00-4.00 [facility] Comment on above: Order Comment: Speci men Type: BLOOD SPECIMEN Ordering Facility: [facility] Address: [address] [place] [address] Performed By: #### 5 7021-8 #### [facility] CLIA [id number] [address] Lymphocytes/100 WBC (Bld) 23.1 % Normal [facility] Comment on above: Order Comment: Speci men Type: BLOOD SPECIMEN Ordering Facility: [facility] Address: [address] [place] [address] Performed By: #### 5 7021-8 #### [facility] CLIA [id number] [address] MCH (RBC) [Entitic mass] 30.6 pg Normal 26.0-34.0 [facility] Comment on above: Order Comment: Speci men Type: BLOOD SPECIMEN Ordering Facility: [facility] Address: [address] [place] [address] Performed By: #### 5 7021-8 #### [facility] CLIA [id number] [address] OF [facility] MCHC (RBC) [Mass/Vol] 34.4 g/dL Normal 30.5-36.0 [facility] Comment on above: Order Comment: Speci men Type: BLOOD SPECIMEN Ordering Facility: [facility] Address: [address] [place] [address] Performed By: #### 5 7021-8 #### [facility] CLIA [id number] [address] MCV (RBC) [Entitic vol] 89.1 fL Normal 80.0-100.0 [facility] Comment on above: Order Comment: Speci men Type: BLOOD SPECIMEN Ordering Facility: [facility] Address: [address] [place] [address] Performed By: #### 5 7021-8 #### [facility] CLIA [id number] [address] [place] [address] [place] Monocytes (Bld) [#/Vol] 0.74 10*3/uL Normal <0.87 [facility] Comment on above: Order Comment: Speci men Type: BLOOD SPECIMEN Ordering Facility: [facility] Address: [address] [place] [address] Performed By: #### 5 7021-8 #### [facility] CLIA [id number] [address] [place] Monocytes/100 WBC (Bld) 10.1 % Normal [facility] Comment on above: Order Comment: Speci men Type: BLOOD SPECIMEN Ordering Facility: [facility] Address: [address] [place] [address] Performed By: #### 5 7021-8 #### [facility] CLIA [id number] [address] [place] Neutrophils (Bld) [#/Vol] 4.62 10*3/uL Normal 1.45-7.50 [facility] Comment on above: Order Comment: Speci men Type: BLOOD SPECIMEN Ordering Facility: [facility] Address: [address] [place] [address] Performed By: #### 5 7021-8 #### [facility] CLIA [id number] [address] [place] Neutrophils/100 WBC (Bld) 63.3 % Normal [facility] Comment on above: Order Comment: Speci men Type: BLOOD SPECIMEN Ordering Facility: [facility] Address: [address] [place] [address] Performed By: #### 5 7021-8 #### [facility] CLIA [id number] [address] [place] [address] [place] Nucleated RBC (Bld) [#/Vol] 10*3/uL Normal <0.01 [facility] Comment on above: Order Comment: Speci men Type: BLOOD SPECIMEN Ordering Facility: [facility] Address: [address] [place] [address] Performed By: #### 5 7021-8 #### [facility] CLIA [id number] [address] [place] Nucleated RBC/100 WBC (Bld) [Ratio] 0.0 /100 WBC Normal [facility] Comment on above: Order Comment: Speci men Type: BLOOD SPECIMEN Ordering Facility: [facility] Address: [address] [place] [address] Performed By: #### 5 7021-8 #### [facility] CLIA [id number] [address] OF [facility] Platelet mean volume (Bld) [Entitic vol] 9.8 fL Normal 9.0-12.7 [facility] Comment on above: Order Comment: Speci men Type: BLOOD SPECIMEN Ordering Facility: [facility] Address: [address] [place] [address] Performed By: #### 5 7021-8 #### [facility] CLIA [id number] [address] [place] Platelets (Bld) [#/Vol] 198 10*3/uL Normal 150-400 [facility] Comment on above: Order Comment: Speci men Type: BLOOD SPECIMEN Ordering Facility: [facility] Address: [address] [place] [address] Result Comment: No c lot detected. Performed By: #### 5 7021-8 #### [facility] CLIA [id number] [address] RBC (Bld) [#/Vol] 5.13 10*6/uL Normal 4.20-6.00 [facility] Comment on above: Order Comment: Speci men Type: BLOOD SPECIMEN Ordering Facility: [facility] Address: [address] [place] [address] Performed By: #### 5 7021-8 #### [facility] CLIA [id number] [address] WBC (Bld) [#/Vol] 7.31 10*3/uL Normal 3.70-11.00 [facility] Comment on above: Order Comment: Speci men Type: BLOOD SPECIMEN Ordering Facility: [facility] Address: [address] [place] [place] [id number] Performed By: #### 5 7021-8 #### [facility] CLIA [id number] [address] [place] [address] [place] [address] ABD/PEL WO IVCONon 2023 CT ABD/PEL WO IVCON * * *Final Report* * * DATE OF EXAM: Feb 11 2024 11:19AM [facility] 0531 - CT ABD/PEL WO IVCON / PROCEDURE REASON: LLQ abdominal pain * * * * Physician Interpretation * * * * EXAMINATION: CT ABDOMEN AND PELVIS WITHOUT IV CONTRAST HISTORY: Clinical information: LLQ abdominal pain c/o vomiting and abdominal pain since Wednesday. He denies diarrhea or constipation, fever or chills History from electronic medical record (Epic): Previous appendectomy, cholecystectomy and back surgery TECHNIQUE: Non-IV contrast imaging of the abdomen and pelvis was performed using standard technique, scanning from just above the dome of the diaphragm to the symphysis pubis. Unenhanced imaging is limited for the evaluation of some intra-abdominal and pelvic pathology. MQ: CTAPWO_3 Contrast: IV: None : ml of CT Radiation dose: Integrated Dose-length product (DLP) for this visit = 392 mGy*cm. CT Dose Reduction Employed: Automated exposure control(AEC) and iterative recon COMPARISON: 08/17/2023 Result: CT ABDOMEN: Lower thorax: Unremarkable. Liver: No mass. Homogeneous texture. Diffuse decrease in attenuation of the liver is compatible with fatty changes. Biliary: No ductal dilatation is seen. . GI tract: No bowel dilatation is seen. No evidence of obstruction. Spleen: Spleen is unremarkable. Pancreas: No mass or duct dilation. Adrenals: Adrenal glands are unremarkable. Kidneys: RIGHT kidney: No masses No calcifications are seen. No hydronephrosis is seen. LEFT kidney: Cystic area with peripheral calcification in the LEFT kidney again noted No calcifications are seen. No hydronephrosis is seen. Lymph nodes: No evidence of adenopathy. Mesentery/Peritoneum: No ascites or mass. Vasculature: No evidence of dilatation of the abdominal aorta. Bony structures: No fractures or dislocations are seen. Soft tissues: No acute findings. CT PELVIS FINDINGS: Lymph Nodes: No enlarged lymph nodes. Urinary bladder: Unremarkable Prostate is small and contains calcification Contact Worker (topogram) images: No additional findings IMPRESSION: No acute pathology is identified Cycle Manager: JENNY Transcribe Date/Time: Feb 11 2024 11:34A Dictated by : DONNA GREENE DO This examination was interpreted and the report reviewed and electronically signed by: DONNA GREENE DO on Feb 11 2024 11:51AM EST [id number] Normal [facility] Comprehensive metabolic 2000 panelon 02-11-2024 Albumin [Mass/Vol] 4.4 g/dL Normal 3.9-4.9 [facility] Comment on above: Order Comment: Speci men Type: BLOOD SPECIMEN Ordering Facility: [facility] Address: [address] [place] [address] Performed By: #### 3 040-3, 78707-7 #### [facility] CLIA [id number] [address] ALP [Catalytic activity/Vol] 89 U/L Normal 38-113 [facility] Comment on above: Order Comment: Speci men Type: BLOOD SPECIMEN Ordering Facility: [facility] Address: [address] [place] [address] Performed By: #### 3 040-3, 33364-5 #### [facility] CLIA [id number] [address] [place] ALT [Catalytic activity/Vol] 30 U/L Normal 10-54 [facility] Comment on above: Order Comment: Speci men Type: BLOOD SPECIMEN [facility] [facility] Address: [address] [place] [address] Performed By: #### 3 040-3, 12222-1 #### [facility] CLIA [id number] [address] [place] [address] [place] Anion gap [Moles/Vol] 11 mmol/L Normal 8-15 [facility] Comment on above: Order Comment: Speci men Type: BLOOD SPECIMEN Ordering Facility: [facility] Address: [address] [place] [address] Performed By: #### 3 040-3, 52662-9 #### [facility] CLIA [id number] [address] [place] [address] [place] AST [Catalytic activity/Vol] Normal [facility] Comment on above: Order Comment: Speci men Type: BLOOD SPECIMEN Ordering Facility: [facility] Address: [address] [place] [address] Result Comment: Unab le to assay due to interference from hemolysis. Suggest reorder as clinically indicated. Performed By: #### 3 040-3, 48124-9 #### [facility] CLIA [id number] [address] [place] [address] [place] Bilirubin [Mass/Vol] 0.7 mg/dL Normal 0.2-1.3 [facility] Comment on above: Order Comment: Speci men Type: BLOOD SPECIMEN Ordering Facility: [facility] Address: [address] [place] [address] Performed By: #### 3 -3, 71884-5 #### [facility] CLIA [id number] [address] STATES [place] Calcium [Mass/Vol] 9.7 mg/dL Normal 8.5-10.2 [facility] Comment on above: Order Comment: Speci men Type: BLOOD SPECIMEN Ordering Facility: [facility] Address: [address] [place] [address] Performed By: #### 3 3, 08856-4 #### [facility] CLIA [id number] [address] [place] [address] [place] Chloride [Moles/Vol] 104 mmol/L Normal 98-107 [facility] Comment on above: Order Comment: Speci men Type: BLOOD SPECIMEN Ordering Facility: [facility] Address: [address] [place] [address] Performed By: #### 3 -3, 68031-6 #### [facility] CLIA [id number] [address] [place] [address] [place] CO2 [Moles/Vol] 23 mmol/L Normal 22-30 [facility] Comment on above: Order Comment: Speci men Type: BLOOD SPECIMEN Ordering Facility: [facility] Address: [address] [place] [address] Performed By: #### 3 -3, 68453-1 #### [facility] CLIA [id number] [address] [place] [address] [place] Creatinine [Mass/Vol] 1.01 mg/dL Normal 0.73-1.22 [facility] Comment on above: Order Comment: Jairo betancourt Type: BLOOD SPECIMEN Ordering Facility: [facility] Address: [address] [place] [address] Performed By: #### 3 040-3, 75424-7 #### [facility] CLIA [id number] [address] Creatinine and Glomerular filtration rate.predicted panel (S/P/Bld) 88 mL/min/1.73m??? Normal >=60 [facility] Comment on above: Order Comment: Jairo betancourt Type: BLOOD SPECIMEN Ordering Facility: [facility] Address: [address] [place] [address] Result Comment: Jacquie mated Glomerular Filtration Rate (eGFR) is calculated using the 2020 CKD-EPI creatinine equation. This equation utilizes serum creatinine, sex, and age as parameters. The creatinine assay has traceable calibration to isotope dilution-mass spectrometry. Refer to KDIGO guidelines for clinical interpretation. In patients with unstable renal function, e.g. those with acute kidney injury, the eGFR may not accurately reflect actual GFR. Performed By: #### 3 040-3, 37979-6 #### [facility] CLIA [id number] [address] OF [facility] Glucose [Mass/Vol] 97 mg/dL Normal 74-99 [facility] Comment on above: Order Comment: Jairo betancourt Type: BLOOD SPECIMEN Ordering Facility: [facility] Address: [address] [place] [address] Result Comment: The [place] Diabetes Association (ADA) provides guidance for cutoff values for fasting glucose and random glucose. The ADA defines fasting as no caloric intake for at least 8 hours. Fasting plasma glucose results between 100 to 125 mg/dL indicate increased risk for diabetes (prediabetes). Fasting plasma glucose results greater than or equal to 126 mg/dL meet the criteria for diagnosis of diabetes. In the absence of unequivocal hyperglycemia, results should be confirmed by repeat testing. In a patient with classic symptoms of hyperglycemia or hyperglycemic crisis, random plasma glucose results greater than or equal to 200 mg/dL meet the criteria for diagnosis of diabetes. Reference: Standards of Medical Care in Diabetes 2016, [place] Diabetes Association. Diabetes Care. 2016.39(Suppl 1). Performed By: #### 3 040-3, 36710-3 #### [facility] CLIA [id number] [address] STATES OF [facility] Potassium [Moles/Vol] 4.4 mmol/L Normal 3.7-5.1 [facility] Comment on above: Order Comment: Jairo betancourt Type: BLOOD SPECIMEN Ordering Facility: [facility] Address: [address] [place] [address] Performed By: #### 3 040-3, 96006-6 #### [facility] CLIA [id number] [address] STATES [facility] Protein [Mass/Vol] 7.8 g/dL Normal 6.3-8.0 [facility] Comment on above: Order Comment: Jairo betancourt Type: BLOOD SPECIMEN Ordering Facility: [facility] Address: [address] [place] [address] Performed By: #### 3 040-3, 45881-6 #### [facility] CLIA [id number] [address] Sodium [Moles/Vol] 138 mmol/L Normal 136-144 [facility] Comment on above: Order Comment: Jairo betancourt Type: BLOOD SPECIMEN Ordering Facility: [facility] Address: [address] [place] [address] Performed By: #### 3 -3, 43168-5 #### [facility] CLIA [id number] [address] STATES [facility] Urea nitrogen [Mass/Vol] 15 mg/dL Normal 9-24 [facility] Comment on above: Order Comment: Jairo men Type: BLOOD SPECIMEN Ordering Facility: [facility] Address: [address] [place] [address] Performed By: #### 3 040-3, 92399-2 #### [facility] CLIA [id number] [address] OF [place] ED NOTEon 02-11-2024 ED NOTE HNO ID: [id number] Author: BELLE VILCHIS RN Service: ? Author Type: Registered Nurse Type: ED Notes Filed: 02/11/2024 13:59 Note Text: SBAR report to [facility]. Patient assisted to EMS cot by staff, care handed off without incident. [facility] ED NOTE HNO ID: [id number] Author: BELLE VILCHIS RN Service: ? Author Type: Registered Nurse Type: ED Notes Filed: 02/11/2024 12:41 Note Text: SBAR report called to Albina CONTRERAS from [facility] for discharge. Sister/POA called for update on plan of care. Waiting for EMS transport. [facility] ED PROV NOTEon 02-11-2024 ED PROV NOTE HNO ID: [id number] Author: EDI CARDONA DO Service: Emergency Medicine Author Type: Physician Type: ED Provider Notes Filed: 02/11/2024 15:27 Note Text: ED Provider Note Patient Name: Kari Allan : 1970 SERVICE DATE: 02/11/24 History Patient presents with: Vomiting: Pt presents to ED via EMS with c/o vomiting and abdominal pain since Wednesday. He denies diarrhea or constipation, fever or chills HPI 53 year old male PMHx ETOH use and anoxic brain injury, COPD, HTN, GERD presents today for n/v and diffuse abd pain for 2-3 days. States had episodes of n/v this AM. Unsure what color. Denies BRBPR and melena. Does not know what makes abd pain worse/better. Denies cp, sob, edema, headache, weakness/numbness. PAST MEDICAL HISTORY Diagnosis Date Acute respiratory failure (HCC) Alcohol abuse Alcohol withdrawal with delirium in inpatient treatment ([facility]) 03/15/2016 Anemia Back pain C. difficile colitis COPD (chronic obstructive pulmonary disease) (HCC) Drug overdose DVT (deep venous thrombosis) (HCC) Dysphasia Encephalopathy ETOH abuse 02/09/2016 GI bleed 09/24/2019 Opiate dependence, continuous (HCC) Pancreatitis Pulmonary nodule seen on imaging study Renal cyst Seizure (HCC) Sepsis (HCC) Tobacco abuse Weakness PAST SURGICAL HISTORY Procedure Laterality Date APPENDECTOMY HX BACK SURGERY HX CHOLECYSTECTOMY HX COLONOSCOPY 2014 EGD 02/16/2017 EGD 04/13/2019 EGD 12/13/2018 EGD 11/15/2018 EGD 11/11/2018 EGD 10/11/2018 EGD 03/01/2018 EGD 02/08/2018 EGD 01/18/2018 EGD DILATION 07/12/2018 EGD DILATION 04/26/2018 EGD DILATION 03/22/2018 EGD W/O BRSH SPEC VARICIES INJ 09/25/2019 GASTROSTOMY/JEJUNOSTOMY TUBE 02/2017 PICC LINE INSERT/CONSULT 04/04/2017 FAMILY HISTORY Problem Relation Age of Onset Diabetes Mother Blood Disease Father Alcohol/Drug Brother other (Pancreatitis) Brother Social History Tobacco Use Smoking status: Every Day Current packs/day: 1.00 Average packs/day: 1 pack/day for 30.0 years (30.0 ttl pk-yrs) Types: Cigarettes Smokeless tobacco: Never Vaping Use Vaping status: Never Used Substance and Sexual Activity Alcohol use: Not Currently Comment: past hx of etoh abuse Drug use: No Sexual activity: Never ALLERGIES Allergen Reactions Haldol [Haloperidol* Unknown Copied from mar from halfway Paragoric Swelling Review of Systems Constitutional: Negative for fever. HENT: Negative for congestion. Respiratory: Negative for cough and shortness of breath. Cardiovascular: Negative for chest pain. Gastrointestinal: Positive for abdominal pain, nausea and vomiting. Negative for diarrhea. Genitourinary: Negative for dysuria. Neurological: Negative for weakness. Physical Exam Vitals [02/11/24 0941] BP Pulse Temp Temp src Resp SpO2 Weight Height 127/82 82 37 ?C (98.6 ?F) Oral 18 (!) 94 % 91.2 kg (201 lb 1 oz) -- Physical Exam Constitutional: General: He is not in acute distress. Appearance: He is not ill-appearing, toxic-appearing or diaphoretic. HENT: Head: Normocephalic. Nose: Nose normal. Mouth/Throat: Mouth: Mucous membranes are moist. Pharynx: No oropharyngeal exudate or posterior oropharyngeal erythema. Cardiovascular: Rate and Rhythm: Normal rate. Pulses: Normal pulses. Pulmonary: Effort: Pulmonary effort is normal. No respiratory distress. Breath sounds: No wheezing. Abdominal: Palpations: Abdomen is soft. Tenderness: There is abdominal tenderness. There is no guarding. Comments: Diffuse TTP. Soft in all quadrants Musculoskeletal: Right lower leg: No edema. Left lower leg: No edema. Skin: General: Skin is warm. Capillary Refill: Capillary refill takes less than 2 seconds. Neurological: Mental Status: Mental status is at baseline. Comments: Alert, answering questions Strength 5/5 BUE BLE Dull sensation in tact BUE BLE Diagnostic Testing ED Labs Ordered and Reviewed LIPASE - Abnormal; Notable for the following components: Result Value Ref Range Lipase 15 (*) 16 - 61 U/L All other components within normal limits COVID AND INFLUENZA A/B AND RSV PCR, EXPEDITED - Normal Narrative: Reference Range (the expected result in uninfected individuals): Not detected COMPREHENSIVE METABOLIC PANEL COMPLETE BLOOD COUNT AND DIFFERENTIAL URINALYSIS WITH MICROSCOPIC, REFLEX CULTURE TYPE + SCREEN Procedures ED Course / Clinical Impression ED Course as of 02/11/24 1527 Edi Cardona's Documentation Fri Feb 11, 2024 112 Lipase(!): 15 Low suspicion pancreatisi 1122 COMP METABOLIC PANEL (BMP+LFT): Protein, Total 7.8 Albumin 4.4 Calcium 9.7 Bilirubin, Total 0.7 Alkaline Phosphatase 89 ALT 30 Glucose 97 BUN 15 Creatinine 1.01 Sodium 138 Potassium 4.4 Chloride 104 CO2 23 Anion Gap 11 eGFR 88 unremarkable 1122 CBC + DIFF: WBC 7.31 RBC 5.13 Hemoglobin 15.7 Hematocrit (more content not included)... Normal [facility] Lipase SerPl-cCncon 02-11-20 24 Lipase [Catalytic activity/Vol] 15 U/L Low 16-61 [facility] Comment on above: Order Comment: [facility] Type: BLOOD SPECIMEN Ordering Facility: [facility] Address: [address] [place] [address] Performed By: #### 3 040-3, 78378-7 #### [facility] CLIA [id number] [address] STATES [place] TYPE + SCREENon 02-11-2024 ABO B Normal [facility] Comment on above: Order Comment: [facility] Type: BLOOD SPECIMEN Ordering Facility: [facility] Address: [address] [place] [address] Performed By: #### T SCR #### [facility] CLIA [id number] [address] [place] [address] [place] HISTORICAL AB SCR STATUS Negative Normal [facility] Comment on above: Order Comment: Speci men Type: BLOOD SPECIMEN Ordering Facility: [facility] Address: [address] [place] [address] Performed By: #### T SCR #### [facility] CLIA [id number] [address] [place] [address] [facility] OF [place] Rh Nom (Bld) Positive [facility] Comment on above: Order Comment: Speci men Type: BLOOD SPECIMEN Ordering Facility: [facility] Address: [address] [place] [address] Performed By: #### T SCR #### [facility] CLIA [id number] [address] [place] [address] [facility] TYPE AND SCREEN EXPIRATION 02/14/2024 23:59 [facility] Comment on above: Order Comment: Speci men Type: BLOOD SPECIMEN Ordering Facility: [facility] Address: [address] [place] [address] Performed By: #### T SCR #### [facility] CLIA [id number] [address] [place] [address] [facility] OF [place] Basic Metabolic Profile (BMP )on 01-19-2024 BUN/CRE 7.8 RATIO Low 10-20 [facility] Comment on above: Order Comment: 106-1 Performed By: #### L 400.0001, M1 #### [facility] [address] [place], [address] CA,Total 9.2 mg/dL Normal 8.5-10.1 [facility] Comment on above: Order Comment: 106-1 Performed By: #### L 400.0001, M1 #### [facility] [address] [place], [address] Chloride [Moles/Vol] 105 mmol/L Normal 98-107 [facility] Comment on above: Order Comment: 106-1 Performed By: #### L 400.0001, M100.0 #### [facility] [address] [place], [address] CO2 [Moles/Vol] 26.0 mmol/L Normal 21.0-32.0 [facility] Comment on above: Order Comment: 106- Performed By: #### L 400.0001, #### [facility] [address] [place], [address] Creatinine [Mass/Vol] 1.03 mg/dL Normal 0.70-1.30 [facility] Comment on above: Order Comment: 106- Result Comment: The validity of the calculated GFR GFRAA in patients over 70 years has not been determined. Clinical correlation is essential. Performed By: #### L 400.0001, #### [facility] [address] [place], [address] EST GFR - AA 96 mL/min Normal >60 [facility] Comment on above: Order Comment: Result Comment: Afri can Malag[place] GFR Calc Performed By: #### L 400.0001, #### [facility] [address] [place], [address] GAP 6 Normal 5-15 [facility] Comment on above: Order Comment: Performed By: #### L 400.0001, #### [facility] [address] [place], [address] GFR/1.73 sq M.predicted among non-blacks MDRD (S/P/Bld) [Vol rate/Area] 80 mL/min/{1.73_m2} Normal >60 [facility] Comment on above: Order Comment: 106 Result Comment: Non- GFR Calc Performed By: #### L 400.0001, #### [facility] [address] [place], [address] Glucose [Mass/Vol] 90 mg/dL Normal 74-106 [facility] Comment on above: Order Comment: 106-1 Performed By: #### L 400.0001, #### [facility] [address] [place], [address] Potassium [Moles/Vol] 3.9 mmol/L Normal 3.5-5.1 [facility] Comment on above: Order Comment: 106-1 Performed By: #### L 400.0001, .2199 #### [facility] [address] [place], [address] Sodium [Moles/Vol] 137 mmol/L Normal 136-145 [facility] Comment on above: Order Comment: 106-1 Performed By: #### L 400.0001, #### [facility] [address] [place], [address] Urea nitrogen [Mass/Vol] 8 mg/dL Normal 7-18 [facility] Comment on above: Order Comment: 106-1 Performed By: #### L 400.0001, #### [facility] [address] [place], [address] CBC-Complete Blood [facility] Erythrocyte distribution width (RBC) [Ratio] 13.7 % Normal 11.6-14.6 [facility] Comment on above: Order Comment: 106-1 Performed By: #### L 400.0001, #### [facility] [address] [place], [address] Hematocrit (Bld) [Volume fraction] 40.1 % Normal 40-54 [facility] Comment on above: Order Comment: 106-1 Performed By: #### L 400.0001, #### [facility] [address] [place], [address] Hemoglobin (Bld) [Mass/Vol] 13.6 g/dL Normal 13.0-16.5 [facility] Comment on above: Order Comment: 106-1 Performed By: #### L 400.0001, M1.2200 #### [facility] [address] [place], [address] MCH (RBC) [Entitic mass] 30.2 pg Normal 27.0-32.0 [facility] Comment on above: Order Comment: 106-1 Performed By: #### L 400.0001, .2199 #### [facility] [address] [place], [address] MCHC (RBC) [Mass/Vol] 33.9 g/dL Normal 32-36 [facility] Comment on above: Order Comment: 106-1 Performed By: #### L 400.0001, #### [facility] [address] [place], [address] MCV (RBC) [Entitic vol] 89.1 fL Normal 80-94 [facility] Comment on above: Order Comment: 106-1 Performed By: #### L 400.0001, #### [facility] [address] [place], [address] Platelet mean volume (Bld) [Entitic vol] 8.9 fL Normal 6.2-12.0 [facility] Comment on above: Order Comment: 106-1 Performed By: #### L 400.0001, #### [facility] [address] [place], [address] Platelets (Bld) [#/Vol] 199 10*3/uL Normal 150-450 [facility] Comment on above: Order Comment: 106-1 Performed By: #### L 400.0001, #### [facility] [address] [place], [address] RBC (Bld) [#/Vol] 4.50 10*6/uL Low 4.6-6.2 [facility] Comment on above: Order Comment: 106-1 Performed By: #### L 400.0001, M1.0 #### [facility] [address] [place], [address] RDW SD 45.0 fl High 35.1-43.9 [facility] Comment on above: Order Comment: 106-1 Performed By: #### L 400.0001, M100.0 #### [facility] [address] [place], [address] WBC (Bld) [#/Vol] 7.3 10*3/uL Normal 4.4-11.0 [facility] Comment on above: Order Comment: 106-1 Performed By: #### L 400.0001, .0 #### [facility] [address] [place], [address] PSA,Total - Annual Screenon 01-19-2024 PSA,TOT SCREEN 0.96 ng/mL Normal 0.00-4.00 [facility] Comment on above: Order Comment: 106-1 Result Comment: This test was performed using the TPSA assay method for the [employer] chemistry system. Values obtained with different assay methods cannot be used interchangably. When changing PSA assays in the course of monitoring a patient, additional sequential testing should be carried out to confirm baseline values. Performed By: #### L 400.0001, M1.2200 #### [facility] [address] [place], [address] Basic Metabolic Profile (BMP )on 01-18-2024 BUN Normal 7-18 [facility] Comment on above: Order Comment: 106.2 Result Comment: DID NOT GET GREEN TOP TUBE WILL DRAW 01/18 Performed By: #### L 500.2500, L100.0500 #### [facility] [address] [place], [address] BUN/CRE Normal - [facility] Comment on above: Order Comment: 106.2 Result Comment: DID NOT GET GREEN TOP TUBE WILL DRAW 01/18 Performed By: #### L 500.2500, L100.0500 #### [facility] [address] [place], [address] CA,Total Normal 8.5-10.1 [facility] Comment on above: Order Comment: 106.2 Result Comment: DID NOT GET GREEN TOP TUBE WILL DRAW 8/ Performed By: #### L 500.2500, L100.0500 #### [facility] [address] [place], [address] CL Normal 98-107 [facility] Comment on above: Order Comment: 106.2 Result Comment: DID NOT GET GREEN TOP TUBE WILL DRAW 8/ Performed By: #### L 500.2500, L100.0500 #### [facility] [address] [place], [address] CO2 Normal 21.0-32.0 [facility] Comment on above: Order Comment: 106.2 Result Comment: DID NOT GET GREEN TOP TUBE WILL DRAW 8/ Performed By: #### L 500.2500, L100.0500 #### [facility] [address] [place], [address] CREAT,SERUM Normal 0.70-1.30 [facility] Comment on above: Order Comment: 106.2 Result Comment: DID NOT GET GREEN TOP TUBE WILL DRAW 8/ Performed By: #### L 500.2500, L100.0500 #### [facility] [address] [place], [address] EST GFR Normal >60 [facility] Comment on above: Order Comment: 106.2 Result Comment: DID NOT GET GREEN TOP TUBE WILL DRAW 8/21 Performed By: #### L 500.2500, L100.0500 #### [facility] [address] [place], [address] EST GFR - AA Normal >60 [facility] Comment on above: Order Comment: 106.2 Result Comment: DID NOT GET GREEN TOP TUBE WILL DRAW 8/21 Performed By: #### L 500.2500, L100.0500 #### [facility] [address] [place], [address] GAP Normal 5-15 [facility] Comment on above: Order Comment: 106.2 Result Comment: DID NOT GET GREEN TOP TUBE WILL DRAW / Performed By: #### L 500.2500, L100.0500 #### [facility] [address] [place], [address] GLU Normal 74-106 [facility] Comment on above: Order Comment: 106.2 Result Comment: DID NOT GET GREEN TOP TUBE WILL DRAW / Performed By: #### L 500.2500, L100.0500 #### [facility] [address] [place], [address] Potassium Normal 3.5-5.1 [facility] Comment on above: Order Comment: 106.2 Result Comment: DID NOT GET GREEN TOP TUBE WILL DRAW 01/18 Performed By: #### L 500.2500, L100.0500 #### [facility] [address] [place], [address] Basic Metabolic Profile (BMP) Normal 136-145 [facility] Comment on above: Order Comment: 106.2 Result Comment: DID NOT GET GREEN TOP TUBE WILL DRAW 01/18 Performed By: #### L 500.2500, L100.0500 #### [facility] [address] [place], [address] CBC-Complete Blood Cnt No Di ffon 01-18-2024 Erythrocyte distribution width (RBC) [Ratio] 14.2 % Normal 11.6-14.6 [facility] Comment on above: Order Comment: 106.2 Performed By: #### L 500.2500, L100.0500 #### [facility] [address] [place], [address] Hematocrit (Bld) [Volume fraction] 43.9 % Normal 40-54 [facility] Comment on above: Order Comment: 106.2 Performed By: #### L 500.2500, L100.0500 #### [facility] [address] [place], [address] Hemoglobin (Bld) [Mass/Vol] 14.6 g/dL Normal 13.0-16.5 [facility] Comment on above: Order Comment: 106.2 Performed By: #### L 500.2500, L100.0500 #### [facility] [address] [place], [address] MCH (RBC) [Entitic mass] 30.3 pg Normal 27.0-32.0 [facility] Comment on above: Order Comment: 106.2 Performed By: #### L 500.2500, L100.0500 #### [facility] [address] [place], [address] MCHC (RBC) [Mass/Vol] 33.3 g/dL Normal 32-36 [facility] Comment on above: Order Comment: 106.2 Performed By: #### L 500.2500, L100.0500 #### [facility] [address] [place], [address] MCV (RBC) [Entitic vol] 91.1 fL Normal 80-94 [facility] Comment on above: Order Comment: 106.2 Performed By: #### L 500.2500, L100.0500 #### [facility] [address] [place], [address] Platelet mean volume (Bld) [Entitic vol] 9.5 fL Normal 6.2-12.0 [facility] Comment on above: Order Comment: 106.2 Performed By: #### L 500.2500, L100.0500 #### [facility] [address] [place], [address] Platelets (Bld) [#/Vol] 202 10*3/uL Normal 150-450 [facility] Comment on above: Order Comment: 106.2 Performed By: #### L 500.2500, L100.0500 #### [facility] [address] [place], [address] RBC (Bld) [#/Vol] 4.82 10*6/uL Normal 4.6-6.2 [facility] Comment on above: Order Comment: 106.2 Performed By: #### L 500.2500, L100.0500 #### [facility] [address] [place], [address] RDW SD 47.8 fl High 35.1-43.9 [facility] Comment on above: Order Comment: 106.2 Performed By: #### L 500.2500, L100.0500 #### [facility] [address] [place], [address] WBC (Bld) [#/Vol] 6.6 10*3/uL Normal 4.4-11.0 [facility] Comment on above: Order Comment: 106.2 Performed By: #### L 500.2500, L100.0500 #### [facility] [address] [place], [address] KEPPRA (LEVETIRACETAM)on KEPPRA 20.0 ug/mL Normal 10.0-40.0 [facility] Comment on above: Order Comment: 106.2 Result Comment: Perf ormed at: [facility] [id number] [employer] Pipe Fitter: Serena Merida MD, Phone: [phone] Performed By: #### L 500.2500, L100.0500 #### [facility] [address] [place], [address] PSA Total+%Freeon 10-29-2023 PSA, FREE 0.24 ng/mL Normal N/A [facility] Comment on above: Order Comment: 106-1 Result Comment: Bienvenido HIRSCH methodology. Performed By: #### L 400.0001, #### [facility] [address] [place], [place], [address] PSA, FREE % 22.0 Normal . [facility] Comment on above: Order Comment: 106-1 Result Comment: The table below lists the probability of prostate cancer for men with non-suspicious GAVIN results and total PSA between 4 and 10 ng/mL, by patient age (Cyndee et al, ROBERT 1998, 279:1542). % Free PSA 50-64 yr 65-75 yr 0.00-10.00% 56% 55% 10.01-15.00% 24% 35% 15.01-20.00% 17% 23% 20.01-25.00% 10% 20% >25.00% 5% 9% Please note: Cyndee et al did not make specific recommendations regarding the use of percent free PSA for any other population of men. Performed at: [address] [id number] [employer] Fitter: Fabricio Flores PhD, Phone: [phone] Performed By: #### L 400.0001, #### [facility] [address] [place], [place], [id number] PSA, TOTAL ULTR 1.090 ng/mL Normal 0.000-4.00 0 [facility] Comment on above: Order Comment: 106-1 Result Comment: Bienvenido HIRSCH methodology. According to the [place] [employer], Serum PSA should decrease and remain at undetectable levels after radical prostatectomy. The AUA defines biochemical recurrence as an initial PSA value 0.200 ng/mL or greater followed by a subsequent confirmatory PSA value 0.200 ng/mL or greater. Values obtained with different assay methods or kits cannot be used interchangeably. Results cannot be interpreted as absolute evidence of the presence or absence of malignant disease. Performed By: #### L 400.0001, #### [facility] [address] [place], [address] Office Visiton 10-27-2023 Follow-up visit [id number] Kay Allan 1970 M Date Provider Department Center 10/27/2023 YUN WELCH [facility] UR None Family History Problem Relation Age of Onset Diabetes Mother Diabetes Brother Family Status - Relation Status Age at Mother Alive Brother Father Level of Service:24170 OK OFFICE/OUTPATIENT NEW MODERATE MDM 45 MINUTES Reason for Visit and Comments: Renal Mass [Other] Normal [facility] Progress Noteon 10-27-2023 Progress Note Yun Rubio MD 10/27/2023 at 11:53 AM Office follow up PATIENT NAME: Kari Allan DATE OF : 1970 TODAY'S DATE: 10/27/2023 CHIEF COMPLAINT: Chief Complaint Patient presents with Renal Mass Subjective: Mr. Allan is a 53 y.o. male who presents to the office for follow up of renal cyst Denies pain He was having urinary issues, trouble voiding while in hospital. He is at halfway now Review of Systems Constitutional: Negative for activity change, chills, fatigue and fever. Gastrointestinal: Negative for abdominal distention and abdominal pain. Genitourinary: Positive for difficulty urinating. Negative for hematuria. Past Medical History: Past Medical History: Diagnosis Date Alcohol abuse with intoxication (HCC) Anemia Anoxic brain damage (CMS/HCC) (HCC) Anxiety Asthma Convulsion (HCC) COPD (chronic obstructive pulmonary disease) (HCC) Depression DVT (deep venous thrombosis) (HCC) Dysphagia Encephalopathy GERD (gastroesophageal reflux disease) Hepatitis Hypertension Impulse control disorder Insomnia, unspecified Need for assistance with personal care Opioid abuse (HCC) Other symbolic dysfunctions Pancreatitis Psychosis (HCC) PTSD (post-traumatic stress disorder) Solitary lung nodule Past Surgical History: Past Surgical History: Procedure Laterality Date APPENDECTOMY BACK SURGERY 5 vertabrae fused CHOLECYSTECTOMY COLONOSCOPY 2014 CT CHEST ANGIOGRAM W AND/OR WO IV CONTRAST 04/08/2022 CT CHEST ANGIOGRAM W AND/OR WO IV CONTRAST 04/08/2022 [facility] [address] IMAGING CYST REMOVAL wrist GASTROSTOMY TUBE PLACEMENT 03/01/2017 UPPER GASTROINTESTINAL ENDOSCOPY 02/16/2017 Allergies: Haloperidol and Paregoric Social History: Social History Socioeconomic History Marital status: Single Spouse name: Not on file Number of children: Not on file Years of education: Not on file Highest education level: Not on file Occupational History Not on file Tobacco Use Smoking status: Some Days Packs/day: 2.00 Years: 40.00 Additional pack years: 0.00 Total pack years: 80.00 Types: Cigarettes Smokeless tobacco: Never Vaping Use Vaping Use: Never used Substance and Sexual Activity Alcohol use: Yes Drug use: Not Currently Sexual activity: Not Currently Other Topics Concern Not on file Social History Narrative Not on file Social Determinants of Health Financial Resource Strain: Patient Declined (08/19/2023) Overall Financial Resource Strain (CARDIA) Difficulty of Paying Living Expenses: Patient declined Food Insecurity: No Food Insecurity (08/19/2023) Hunger Vital Sign Worried About Running Out of Food in the Last Year: Never true Ran Out of Food in the Last Year: Never true Transportation Needs: No Transportation Needs (08/19/2023) PRAPARE - Transportation Lack of Transportation (Medical): No Lack of Transportation (Non-Medical): No Physical Activity: Unknown (08/19/2023) Exercise Vital Sign Days of Exercise per Week: 0 days Minutes of Exercise per Session: Not on file Stress: No Stress Concern Present (08/19/2023) [employer] - Occupational Stress Questionnaire Feeling of Stress : Not at all Social Connections: Socially Isolated (08/19/2023) Social Connection and Isolation Panel [NHANES] Frequency of Communication with Friends and Family: Never Frequency of Social Gatherings with Friends and Family: Never Attends Protestant Services: Never Active Member of Clubs or Organizations: No Attends Club or Organization Meetings: Never Marital Status: Intimate Partner Violence: Not At Risk (08/19/2023) Humiliation, Afraid, Rape, and Kick questionnaire Fear of Current or Ex-Partner: No Emotionally Abused: No Physically Abused: No Sexually Abused: No Housing Stability: Low Risk (08/19/2023) Housing Stability Vital Sign Unable to Pay for Housing in the Last Year: No Number of Places Lived in the Last Year: 2 Unstable Housing in the Last Year: No Family History: Medications Prior to Admission medications Medication Sig Start Date End Date Taking? Authorizing Provider acetaminophen (Tylenol) 325 MG tablet Take 2 tablets by mouth every 6 hours as needed for fever, mild pain (1-3) or moderate pain (4-6). Historical Provider, Albuterol Sulfate 108 (90 Base) MCG/ACT aerosol powder Inhale 1 puff every 2 hours as needed. Historical Provider, MD apixaban (Eliquis) 5 MG tablet Take 5 mg by mouth in the morning and 5 mg before bedtime. Historical Provider, baclofen (Lioresal) 10 MG tablet Take 10 mg by mouth 3 times daily. Historical Provider, bisacodyl (Dulcolax) 10 MG suppository Insert 10 mg into the rectum Daily as needed for constipation. Historical Provider, bisacodyl (Dulcolax) 5 MG EC tablet Take 5 mg by mouth Daily as needed. Historical Provider, divalproex sprinkle (Depakote Sprinkle) [address] capsule Take 500 mg (more content not included)... Normal [facility] Basic Metabolic Profile (BMP )on 10-18-2023 BUN/CRE 5.4 RATIO Low 03-19 [facility] Comment on above: Order Comment: 106-1 Performed By: #### L 100.0500, L500.2500 #### [facility] [address] [place], [address] CA,Total 8.9 mg/dL Normal 8.5-10.1 [facility] Comment on above: Order Comment: 106-1 Performed By: #### L 100.0500, L500.2500 #### [facility] [address] [place], [address] Chloride [Moles/Vol] 101 mmol/L Normal 98-107 [facility] Comment on above: Order Comment: 106-1 Performed By: #### L 100.0500, L500.2500 #### [facility] [address] [place], [address] CO2 [Moles/Vol] 27.0 mmol/L Normal 21.0-32.0 [facility] Comment on above: Order Comment: 106-1 Performed By: #### L 100.0500, L500.2500 #### [facility] [address] [place], [address] Creatinine [Mass/Vol] 1.12 mg/dL Normal 0.70-1.30 [facility] Comment on above: Order Comment: 106-1 Result Comment: The validity of the calculated GFR GFRAA in patients over 70 years has not been determined. Clinical correlation is essential. Performed By: #### L 100.0500, L500.2500 #### [facility] [address] [place], [address] EST GFR - AA 88 mL/min Normal >60 [facility] Comment on above: Order Comment: 106- Result Comment: Afri can Malagasy GFR Calc Performed By: #### L 100.0500, L500.2500 #### [facility] [address] [place], [address] GAP 6 Normal 5-15 [facility] Comment on above: Order Comment: 106-1 Performed By: #### L 100.0500, L500.2500 #### [facility] [address] [place], [address] GFR/1.73 sq M.predicted among non-blacks MDRD (S/P/Bld) [Vol rate/Area] 72 mL/min/{1.73_m2} Normal >60 [facility] Comment on above: Order Comment: 106- Result Comment: Non- GFR Calc Performed By: #### L 100.0500, L500.2500 #### [facility] [address] [place], [address] Glucose [Mass/Vol] 86 mg/dL Normal 74-106 [facility] Comment on above: Order Comment: 106-1 Performed By: #### L 100.0500, L500.2500 #### [facility] [address] [place], [address] Potassium [Moles/Vol] 3.8 mmol/L Normal 3.5-5.1 [facility] Comment on above: Order Comment: 106-1 Performed By: #### L 100.0500, L500.2500 #### [facility] [address] [place], [address] Sodium [Moles/Vol] 134 mmol/L Low 136-145 [facility] Comment on above: Order Comment: 106-1 Performed By: #### L 100.0500, L500.2500 #### [facility] [address] [place], [address] Urea nitrogen [Mass/Vol] 6 mg/dL Low 7-18 [facility] Comment on above: Order Comment: 106-1 Performed By: #### L 100.0500, L500.2500 #### [facility] [address] [place], [address] CBC-Complete Blood Cnt No Di ffon 10-18-2023 Erythrocyte distribution width (RBC) [Ratio] 14.7 % High 11.6-14.6 [facility] Comment on above: Performed By: #### L 100.0500, L500.2500 #### [facility] [address] [place], [address] Hematocrit (Bld) [Volume fraction] 37.2 % Low 40-54 [facility] Comment on above: Performed By: #### L 100.0500, L500.2500 #### [facility] [address] [place], [address] Hemoglobin (Bld) [Mass/Vol] 12.3 g/dL Low 13.0-16.5 [facility] Comment on above: Performed By: #### L 100.0500, L500.2500 #### [facility] [address] [place], [address] MCH (RBC) [Entitic mass] 29.3 pg Normal 27.0-32.0 [facility] Comment on above: Performed By: #### L 100.0500, L500.2500 #### [facility] [address] [place], [address] MCHC (RBC) [Mass/Vol] 33.1 g/dL Normal 32-36 [facility] Comment on above: Performed By: #### L 100.0500, L500.2500 #### [facility] [address] [place], [address] MCV (RBC) [Entitic vol] 88.6 fL Normal 80-94 [facility] Comment on above: Performed By: #### L 100.0500, L500.2500 #### [facility] [address] [place], [address] Platelet mean volume (Bld) [Entitic vol] 8.7 fL Normal 6.2-12.0 [facility] Comment on above: Performed By: #### L 100.0500, L500.2500 #### [facility] [address] [place], [address] Platelets (Bld) [#/Vol] 217 10*3/uL Normal 150-450 [facility] Comment on above: Performed By: #### L 100.0500, L500.2500 #### [facility] [address] [place], [address] RBC (Bld) [#/Vol] 4.20 10*6/uL Low 4.6-6.2 [facility] Comment on above: Performed By: #### L 100.0500, L500.2500 #### [facility] [address] [place], [address] RDW SD 47.7 fl High 35.1-43.9 [facility] Comment on above: Performed By: #### L 100.0500, L500.2500 #### [facility] [address] [place], [address] WBC (Bld) [#/Vol] 6.2 10*3/uL Normal 4.4-11.0 [facility] Comment on above: Performed By: #### L 100.0500, L500.2500 #### [facility] [address] [place], [address] 36on 10-09-2023 36 We have been unable to reach your patient to schedule their testing. Test Name: US retroperitoneum 1st attempt//vm full//no mychart//10.08.23 KGK 2nd attempt//vm full//no way to contact//TE to office// 10.09.23 KGK Normal [facility] Automated blood erythrocyte count (number/volume)Ordered By: Antonella Marrero on 10-04-2023 RBC (Bld) [#/Vol] 4.08 10*6/uL Low 4.6-6.2 [facility] Comment on above: Order Comment: 106-1 Performed By: #### L 100.0500, L500.4050, L503.0105, L503.6030, L506.0250 #### [facility] [address] [place], [address] Automated blood hematocrit ( percentage)Ordered By: Antonella Marrero on 10-04-2023 Hematocrit (Bld) [Volume fraction] 37.1 % Low 40-54 [facility] Comment on above: Order Comment: 106-1 Performed By: #### L 100.0500, L500.4050, L503.0105, L503.6030, L506.0250 #### [facility] [address] [place], [address] Basophil percentageOrdered B y: Antonella Marrero on 10-04-2023 Bilirubin [Mass/Vol] 0.40 mg/dL Normal 0.20-1.00 [facility] Comment on above: For patients on eltr ombopag therapy, use of [place] TBIL is not recommended. Order Comment: SC CATHETER SPECIMEN Result Comment: For patients on eltrombopag therapy, use of [place] TBIL is not recommended. Performed By: #### L 400.0001, M100.2200 #### [facility] [address] [place], [address] Chloride [Moles/Vol] 106 mmol/L Normal 98-107 [facility] Comment on above: Order Comment: SC CATHETER SPECIMEN Performed By: #### L 400.0001, #### [facility] [address] [place], [address] Glucose [Mass/Vol] 94 mg/dL Normal 74-106 [facility] Comment on above: Order Comment: SC CATHETER SPECIMEN Performed By: #### L 400.0001, #### [facility] [address] [place], [address] Potassium [Moles/Vol] 3.9 mmol/L Normal 3.5-5.1 [facility] Comment on above: Order Comment: SC CATHETER SPECIMEN Performed By: #### L 400.0001, #### [facility] [address] [place], [address] Sodium [Moles/Vol] 139 mmol/L Normal 136-145 [facility] Comment on above: Order Comment: SC CATHETER SPECIMEN Performed By: #### L 400.0001, #### [facility] [address] [place], [address] Hemoglobin (Bld) [Mass/Vol] 11.8 g/dL Low 13.0-16.5 [facility] Comment on above: Order Comment: 106-1 Performed By: #### L 100.0500, L500.4050, L503.0105, L503.6030, L506.0250 #### [facility] [address] [place], [address] WBC (Bld) [#/Vol] 6.6 10*3/uL Normal 4.4-11.0 [facility] Comment on above: Order Comment: 106-1 Performed By: #### L 100.0500, L500.4050, L503.0105, L503.6030, L506.0250 #### [facility] [address] [place], [address] Protein [Mass/Vol] 7.0 g/dL 6.4-8.2 [facility] CBC-Complete Blood Cnt No Di ffOrdered By: Antonella Marrero on 10-04-2023 MCH (RBC) [Entitic mass] 28.9 pg Normal 27.0-32.0 [facility] Comment on above: Order Comment: 106-1 Performed By: #### L 100.0500, L500.4050, L503.0105, L503.6030, L506.0250 #### [facility] [address] [place], [address] MCHC (RBC) [Mass/Vol] 31.8 g/dL Low 32-36 [facility] Comment on above: Order Comment: 106-1 Performed By: #### L 100.0500, L500.4050, L503.0105, L503.6030, L506.0250 #### [facility] [address] [place], [address] Platelet mean volume (Bld) [Entitic vol] 9.2 fL Normal 6.2-12.0 [facility] Comment on above: Order Comment: 106-1 Performed By: #### L 100.0500, L500.4050, L503.0105, L503.6030, L506.0250 #### [facility] [address] [place], [address] Platelets (Bld) [#/Vol] 194 10*3/uL Normal 150-450 [facility] Comment on above: Order Comment: 106-1 Performed By: #### L 100.0500, L500.4050, L503.0105, L503.6030, L506.0250 #### [facility] [address] [place], [address] CBC-Complete Blood Cnt No Di ffon 10-04-2023 RDW SD 47.2 fl High 35.1-43.9 [facility] Comment on above: Order Comment: 106-1 Performed By: #### L 100.0500, L500.4050, L503.0105, L503.6030, L506.0250 #### [facility] [address] [place], [address] Comprehensive Metabolic Prof maon 10-04-2023 Albumin [Mass/Vol] 2.6 g/dL Low 3.2-5.0 [facility] Comment on above: Order Comment: SC CATHETER SPECIMEN Performed By: #### L 400.0001, M1.0 #### [facility] [address] [place], [address] ALK P 132 U/L High 45-117 [facility] Comment on above: Order Comment: SC CATHETER SPECIMEN Performed By: #### L 400.0001, .2199 #### [facility] [address], [address] AST [Catalytic activity/Vol] 12 U/L Low 15-37 [facility] Comment on above: Order Comment: SC CATHETER SPECIMEN Performed By: #### L 400.0001, M100.2200 #### [facility] [address] [place], [address] BUN/CRE 7.2 RATIO Low 10-20 [facility] Comment on above: Order Comment: SC CATHETER SPECIMEN Performed By: #### L 400.0001, M1.0 #### [facility] [address] [place], [address] CA,Total 8.8 mg/dL Normal 8.5-10.1 [facility] Comment on above: Order Comment: SC CATHETER SPECIMEN Performed By: #### L 400.0001, M100.2200 #### [facility] [address] [place], [address] EST GFR - AA 103 mL/min Normal >60 [facility] Comment on above: Order Comment: SC CATHETER SPECIMEN Result Comment: Afri can Malagasy GFR Calc Performed By: #### L 400.0001, #### [facility] [address] [place], [address] GAP 6 Normal 5-15 [facility] Comment on above: Order Comment: SC CATHETER SPECIMEN Performed By: #### L 400.0001, #### [facility] [address] [place], [address] GFR/1.73 sq M.predicted among non-blacks MDRD (S/P/Bld) [Vol rate/Area] 85 mL/min/{1.73_m2} Normal >60 [facility] Comment on above: Order Comment: SC CATHETER SPECIMEN Result Comment: Non- GFR Calc Performed By: #### L 400.0001, #### [facility] [address] [place], [address] T PROT 7.0 g/dL Normal 6.4-8.2 [facility] Comment on above: Order Comment: SC CATHETER SPECIMEN Performed By: #### L 400.0001, #### [facility] [address] [place], [address] Comprehensive Metabolic Prof ilOrdered By: Antonella Marrero on 10-04-2023 Albumin/Globulin [Mass ratio] 0.6 {ratio} Low 0.9-2.4 [facility] Comment on above: Order Comment: SC CATHETER SPECIMEN Performed By: #### L 400.0001, #### [facility] [address] [place], [address] ALT [Catalytic activity/Vol] 10 U/L Low 16-61 [facility] Comment on above: Order Comment: SC CATHETER SPECIMEN Performed By: #### L 400.0001, #### [facility] [address] [place], [address] CO2 [Moles/Vol] 27.0 mmol/L Normal 21.0-32.0 [facility] Comment on above: Order Comment: SC CATHETER SPECIMEN Performed By: #### L 400.0001, M100.2200 #### [facility] [address] [place], [address] Globulin (S) [Mass/Vol] 4.4 g/dL High 2.2-4.2 [facility] Comment on above: Order Comment: SC CATHETER SPECIMEN Performed By: #### L 400.0001, M100.0 #### [facility] [address] [place], [address] Determination of erythrocyte mean corpuscular volume (MCV)Ordered By: Antonella Marrero on 10-04-2023 MCV (RBC) [Entitic vol] 90.9 fL Normal 80-94 [facility] Comment on above: Order Comment: 106-1 Performed By: #### L 100.0500, L500.4050, L503.0105, L503.6030, L506.0250 #### [facility] [address] [place], [address] Erythrocyte distribution wid th ratioOrdered By: Antonella Marrero on 10-04-2023 Erythrocyte distribution width (RBC) [Ratio] 14.1 % Normal 11.6-14.6 [facility] Comment on above: Order Comment: 106-1 Performed By: #### L 100.0500, L500.4050, L503.0105, L503.6030, L506.0250 #### [facility] [address] [place], [id number] Erythrocyte distribution wid th standard deviationOrdered By: Antonella Marrero on 10-04-2023 Erythrocyte distribution width (RBC) [Entitic vol] 47.2 fL 35.1-43.9 [facility] Folates, (Folic Acid)on FOLATES 13.80 ng/mL Normal 3.1-55.4 [facility] Comment on above: Order Comment: SC CATHETER SPECIMEN Performed By: #### L 400.0001, M10 #### [facility] [address] [place], [address] Iron measurement (mass/mass) Ordered By: Antonella Marrero on 10-04-2023 Iron (Unsp spec) [Mass/Mass] 47 ug/dL 65-175 [facility] Iron+Iron Binding Capacityon 10-04-2023 Iron [Mass/Vol] 47 ug/dL Low 65-175 [facility] Comment on above: Order Comment: SC CATHETER SPECIMEN Performed By: #### L 400.0001, M10 #### [facility] [address] [place], [address] IRON SATURATION 13.0 Low 15.0-55.0 [facility] Comment on above: Order Comment: SC CATHETER SPECIMEN Performed By: #### L 400.0001, 0 #### [facility] [address] [place], [address] TIBC 362 ug/dL Normal 250-450 [facility] Comment on above: Order Comment: SC CATHETER SPECIMEN Performed By: #### L 400.0001, M10 #### [facility] [address] [place], [address] Laboratory - Chemistry and C hemistry - challengeOrdered By: Antonella Marrero on 10-04-2023 ALP [Catalytic activity/Vol] 132 U/L 45-117 [facility] Urea nitrogen/Creatinine [Mass ratio] 7.2 mg/mg 10-20 [facility] No Panel InformationOrdered By: Antonella Marrero on 10-04-2023 Estimated GFR (MDRD) Amer 103 mL/min >60 [facility] Comment on above: GFR Calc Estimated GFR (MDRD) Non-Af Amer 85 mL/min >60 [facility] Comment on above: Non- GFR Calc Folate 13.80 ng/mL 3.1-55.4 [facility] Total Iron Binding Capacity 362 ug/dL 250-450 [facility] Serum or plasma calcium zakiya urement (mass/volume)Ordered By: Antonella Marrero on 10-04-2023 Calcium [Mass/Vol] 8.8 mg/dL 8.5-10.1 [facility] Serum or plasma creatinine m easurement (mass/volume)Ordered By: Antonella Marrero on 10-04-2023 Creatinine [Mass/Vol] 0.97 mg/dL Normal 0.70-1.30 [facility] Comment on above: The validity of the calculated GFR & GFRAA in patients over 70 years has not been determined. Clinical correlation is essential. Order Comment: SC CATHETER SPECIMEN Result Comment: The validity of the calculated GFR GFRAA in patients over 70 years has not been determined. Clinical correlation is essential. Performed By: #### L 400.0001, M100.0 #### [facility] [address] [place], [place], [id number] Serum or plasma iron saturat ion measurement (mass fraction)Ordered By: Antonella Marrero on 10-04-2023 Iron saturation [Mass fraction] 13.0 % 15.0-55.0 [facility] Serum or plasma urea nitroge n measurement (mass/volume)Ordered By: Antonella Marrero on 10-04-2023 Urea nitrogen [Mass/Vol] 7 mg/dL Normal 7-18 [facility] Comment on above: Order Comment: SC CATHETER SPECIMEN Performed By: #### L 400.0001, M1.0 #### [facility] [address] [place], [place], [id number] Thin prep Papanicolaou smear with manual screeningOrdered By: Antonella Marrero on 10-04-2023 Thin prep Papanicolaou smear with manual screening 2.6 g/dL 3.2-5.0 [facility] Thin prep Papanicolaou smear with manual screening 12 U/L 15-37 [facility] Thin prep Papanicolaou smear with manual screening 6 5-15 [facility] Vitamin [id number] By: Antonella Marrero on 10-04-2023 Cobalamin (Vitamin B12) [Mass/Vol] 492 pg/mL Normal 211-911 [facility] Comment on above: Order Comment: 106-1 Performed By: #### L 100.0500, L500.4050, L503.0105, L503.6030, L506.0250 #### [facility] [address] [place], [address] Urine Cultureon 10-03-2023 [facility] STRAIGHT CATH If Gram Positive Jerrod susceptibility studies are desired, contact the Microbiology Laboratory within 48 hours [phone]. [id number] GPR Sensitivity Panel Corynebacterium minutissimum [place] Count 1000-10,000 Normal [facility] Comment on above: Performed By: #### L 400.0001, M100.2200 #### [facility] [address] [place], [address] Urine Cultureon 10-02-2023 [facility] Mixed Gram Positive Organisms [place] Count 1000-10,000 [facility] Mixed contaminants. Submit a new specimen if indicated. Normal [facility] Comment on above: Performed By: #### L 400.0001, M100.2200 #### [facility] [address] [facility] [place], [address] Basophil percentageOrdered B y: Antonella Marrero on 10-01-2023 Basophil percentage 0 SEEN /hpf 0-5 [facility] Bilirubin Test strip Ql (U)O rdered By: Antonella Marrero on 10-01-2023 Bilirubin Ql (U) Negative Negative [facility] Culture, urineOrdered By: Romie Berry on 10-01-2023 Bacteria identified Cx Nom (U) Positive [facility] Ketones Test strip Ql (U)Ord ered By: Antonella Marrero on 10-01-2023 Ketones Ql (U) Negative Negative [facility] Mucus LM Ql (Urine sed)Order ed By: Antonella Marrero on 10-01-2023 Mucus Ql (Urine sed) 0 SEEN /hpf [facility] Nitrite Test strip Ql (U)Ord ered By: Antonella Marrero on 10-01-2023 Nitrite Ql (U) Negative Negative [facility] No Panel InformationOrdered By: Antonella Marrero on 10-01-2023 Urine RBC 0 SEEN /hpf 0-5 [facility] Protein Test strip Ql (U)Ord ered By: Antonella Marrero on 10-01-2023 Protein Ql (U) Negative Negative [facility] Squamous epithelial cells de tection in urine sediment by light microscopyOrdered By: Antonella Marrero on 10-01-2023 Epithelial cells.squamous LM Ql (Urine sed) 0 SEEN /hpf 0-5 [facility] Urinalysis, Completeon 09-30 BACTERIA 0 SEEN Normal None Seen [facility] Comment on above: Order Comment: SC CATHETER SPECIMEN Performed By: #### L 400.0001, M100.2200 #### [facility] [address] [place], [address] EPI,SQUAMOUS 0 SEEN Normal 0-5 [facility] Comment on above: Order Comment: SC CATHETER SPECIMEN Performed By: #### L 400.0001, M100.2200 #### [facility] [address] [place], [address] Mucus Ql (Urine sed) [address] [facility] Comment on above: Order Comment: SC CATHETER SPECIMEN Performed By: #### L 400.0001, M100.2200 #### [facility] [address] [place], [address] RBC 0 SEEN Normal 0-5 [facility] Comment on above: Order Comment: SC CATHETER SPECIMEN Performed By: #### L 400.0001, M100.2200 #### [facility] [address] [place], [address] WBC 0 SEEN Normal 0-5 [facility] Comment on above: Order Comment: SC CATHETER SPECIMEN Performed By: #### L 400.0001, M100.2200 #### [facility] [address] [place], [address] Urine blood detectionOrdered By: Antonella Marrero on 10-01-2023 RBC Ql (U) Negative Negative [facility] Urine clarityOrdered By: Nidhi Marrero on 10-01-2023 Clarity (U) Clear Clear [facility] Urine color determinationOrd ered By: Antonella Marrero on 10-01-2023 Color (U) Straw Yellow [facility] Urine glucose detectionOrder ed By: Antonella Marrero on 10-01-2023 Glucose Ql (U) Normal mg/dl Normal [facility] Urine leukocyte esterase det ection by dipstickOrdered By: Antonella Marrero on 10-01-2023 Leukocyte esterase Test strip Ql (U) Negative Negative [facility] Urine pHOrdered By: Antonella mitchell on 10-01-2023 pH (U) 7.0 [pH] 5.0 - 8.0 [facility] Urine sediment bacteria coun t by microscopy (number/high power field)Ordered By: Antonella Marrero on 10-01-2023 Bacteria LM.HPF (Urine sed) [#/Area] 0 /[HPF] None Seen [facility] Urine specific gravity measu rementOrdered By: Antonella Marrero on 10-01-2023 Specific gravity (U) [Rel density] 1.010 1.002-1.03 0 [facility] Urine urobilinogen measureme ntOrdered By: Antonella Marrero on 10-01-2023 Urobilinogen Ql (U) Normal mg/dl Normal [facility] Urinalysis, Completeon 09-29 BACTERIA 0 SEEN Normal None Seen [facility] Comment on above: Order Comment: GLENN T CATHCATHETER SPECIMEN Performed By: #### L 400.0001, #### [facility] [address] [place], [address] EPI,SQUAMOUS 0 SEEN Normal 0-5 [facility] Comment on above: Order Comment: STRAI T CATHCATHETER SPECIMEN Performed By: #### L 400.0001, M10 #### [facility] [address] [place], [address] Mucus Ql (Urine sed) [address] [facility] Comment on above: Order Comment: STRAI GHT CATHCATHETER SPECIMEN Performed By: #### L 400.0001, M100.2200 #### [facility] [address] [place], [address] RBC 0 SEEN Normal 0-5 [facility] Comment on above: Order Comment: STRAI GHT CATHCATHETER SPECIMEN Performed By: #### L 400.0001, M100.2200 #### [facility] [address] [place], [address] WBC 0 SEEN Normal 0-5 [facility] Comment on above: Order Comment: STRAI GHT CATHCATHETER SPECIMEN Performed By: #### L 400.0001, M100.2200 #### [facility] [address] [place], [address] Basophil percentageOrdered B y: Antonella Marrero on 09-29-2023 Basophil percentage 0 SEEN /hpf 0-5 [facility] Bilirubin Test strip Ql (U)O rdered By: Antonella Marrero on 09-29-2023 Bilirubin Ql (U) Negative Negative [facility] Culture, urineOrdered By: Romie Berry on 09-29-2023 Bacteria identified Cx Nom (U) Corynebacterium minutissimum [facility] Ketones Test strip Ql (U)Ord ered By: Antonella Marrero on 09-29-2023 Ketones Ql (U) Negative Negative [facility] Mucus LM Ql (Urine sed)Order ed By: Antonella Marrero on 09-29-2023 Mucus Ql (Urine sed) 0 SEEN /hpf [facility] Nitrite Test strip Ql (U)Ord ered By: Antonella Marrero on 09-29-2023 Nitrite Ql (U) Negative Negative [facility] No Panel InformationOrdered By: Antonella Marrero on 09-29-2023 Urine RBC 0 SEEN /hpf 0-5 [facility] Protein Test strip Ql (U)Ord ered By: Antonella Marrero on 09-29-2023 Protein Ql (U) Negative Negative [facility] Squamous epithelial cells de tection in urine sediment by light microscopyOrdered By: Antonella Marrero on 09-29-2023 Epithelial cells.squamous LM Ql (Urine sed) 0 SEEN /hpf 0-5 [facility] Urine blood detectionOrdered By: Antonella Marrero on 09-29-2023 RBC Ql (U) Negative Negative [facility] Urine clarityOrdered By: Nidhi Marrero on 09-29-2023 Clarity (U) Clear Clear [facility] Urine color determinationOrd ered By: Antonella Marrero on 09-29-2023 Color (U) Yellow Yellow [facility] Urine glucose detectionOrder ed By: Antonella Marrero on 09-29-2023 Glucose Ql (U) Normal mg/dl Normal [facility] Urine leukocyte esterase det ection by dipstickOrdered By: Antonella Marrero on 09-29-2023 Leukocyte esterase Test strip Ql (U) Negative Negative [facility] Urine pHOrdered By: Antonella mitchell on 09-29-2023 pH (U) 7.0 [pH] 5.0 - 8.0 [facility] Urine sediment bacteria coun t by microscopy (number/high power field)Ordered By: Antonella Marrero on 09-29-2023 Bacteria LM.HPF (Urine sed) [#/Area] 0 /[HPF] None Seen [facility] Urine specific gravity measu rementOrdered By: Antonella Marrero on 09-29-2023 Specific gravity (U) [Rel density] 1.010 1.002-1.03 0 [facility] Urine urobilinogen measureme ntOrdered By: Antonella Marrero on 09-29-2023 Urobilinogen Ql (U) Normal mg/dl Normal [facility] Basic Metabolic Profile (BMP )on 09-27-2023 BUN/CRE 5.2 RATIO Low 10-20 [facility] Comment on above: Order Comment: 113-1 Performed By: #### L 400.0001, #### [facility] [place], [address] CA,Total 8.8 mg/dL Normal 8.5-10.1 [facility] Comment on above: Order Comment: 113-1 Performed By: #### L 400.0001, #### [facility] [address] [place], [address] Chloride [Moles/Vol] 106 mmol/L Normal 98-107 [facility] Comment on above: Order Comment: 113-1 Performed By: #### L 400.0001, #### [facility] [address] [place], [address] CO2 [Moles/Vol] 28.0 mmol/L Normal 21.0-32.0 [facility] Comment on above: Order Comment: 113-1 Performed By: #### L 400.0001, #### [facility] [address] [place], [address] Creatinine [Mass/Vol] 0.96 mg/dL Normal 0.70-1.30 [facility] Comment on above: Order Comment: 113- Result Comment: The validity of the calculated GFR GFRAA in patients over 70 years has not been determined. Clinical correlation is essential. Performed By: #### L 400.0001, #### [facility] [address] [place], [address] EST GFR - AA 104 mL/min Normal >60 [facility] Comment on above: Order Comment: 113- Result Comment: Afri can Malagasy GFR Calc Performed By: #### L 400.0001, #### [facility] [address] [place], [address] GAP 4 Low 5-15 [facility] Comment on above: Order Comment: 113-1 Performed By: #### L 400.0001, #### [facility] [address] [place], [address] GFR/1.73 sq M.predicted among non-blacks MDRD (S/P/Bld) [Vol rate/Area] 86 mL/min/{1.73_m2} Normal >60 [facility] Comment on above: Order Comment: 113-1 Result Comment: Non- GFR Calc Performed By: #### L 400.0001, #### [facility] [address] [place], [address] Glucose [Mass/Vol] 117 mg/dL High 74-106 [facility] Comment on above: Order Comment: 113- Result Comment: Fast ing Glucose result from 100 to 125 mg/dL suggests IMPAIRED HOMEOSTASIS per A.D.A. criteria. Performed By: #### L 400.0001, #### [facility] [address] [place], [address] Potassium [Moles/Vol] 3.9 mmol/L Normal 3.5-5.1 [facility] Comment on above: Order Comment: 113-1 Performed By: #### L 400.0001, #### [facility] [address] [place], [address] Sodium [Moles/Vol] 138 mmol/L Normal 136-145 [facility] Comment on above: Order Comment: 113-1 Performed By: #### L 400.0001, #### [facility] [address] [place], [address] Urea nitrogen [Mass/Vol] 5 mg/dL Low 7-18 [facility] Comment on above: Order Comment: 113-1 Performed By: #### L 400.0001, #### [facility] [address] [place], [address] Basophil percentageOrdered B y: Antonella Marrero on 09-27-2023 Chloride [Moles/Vol] 106 mmol/L 98-107 [facility] Glucose [Mass/Vol] 117 mg/dL 74-106 [facility] Comment on above: Fasting Glucose resu lt from 100 to 125 mg/dL suggests IMPAIRED HOMEOSTASIS per A.D.A. criteria. Hemoglobin (Bld) [Mass/Vol] 11.5 g/dL 13.0-16.5 [facility] Potassium [Moles/Vol] 3.9 mmol/L 3.5-5.1 [facility] Sodium [Moles/Vol] 138 mmol/L 136-145 [facility] WBC (Bld) [#/Vol] 5.7 10*3/uL 4.4-11.0 [facility] CBC-Complete Blood Cnt No Rosita wheat 09-27-2023 Erythrocyte distribution width (RBC) [Ratio] 14.1 % Normal 11.6-14.6 [facility] Comment on above: Performed By: #### L 400.0001, #### [facility] [address] [place], [address] Hematocrit (Bld) [Volume fraction] 35.6 % Low 40-54 [facility] Comment on above: Performed By: #### L 400.0001, #### [facility] [address] [place], [address] Hemoglobin (Bld) [Mass/Vol] 11.5 g/dL Low 13.0-16.5 [facility] Comment on above: Performed By: #### L 400.0001, #### [facility] [address] [place], [address] MCH (RBC) [Entitic mass] 29.5 pg Normal 27.0-32.0 [facility] Comment on above: Performed By: #### L 400.0001, #### [facility] [address] [place], [address] MCHC (RBC) [Mass/Vol] 32.3 g/dL Normal 32-36 [facility] Comment on above: Performed By: #### L 400.0001, #### [facility] [address] [place], [address] MCV (RBC) [Entitic vol] 91.3 fL Normal 80-94 [facility] Comment on above: Performed By: #### L 400.0001, #### [facility] [address] [place], [address] Platelet mean volume (Bld) [Entitic vol] 9.6 fL Normal 6.2-12.0 [facility] Comment on above: Performed By: #### L 400.0001, #### [facility] [address] [place], [address] Platelets (Bld) [#/Vol] 217 10*3/uL Normal 150-450 [facility] Comment on above: Performed By: #### L 400.0001, #### [facility] [address] [place], [address] RBC (Bld) [#/Vol] 3.90 10*6/uL Low 4.6-6.2 [facility] Comment on above: Performed By: #### L 400.0001, #### [facility] [address] [place], [address] RDW SD 47.4 fl High 35.1-43.9 [facility] Comment on above: Performed By: #### L 400.0001, #### [facility] [address] [place], [address] WBC (Bld) [#/Vol] 5.7 10*3/uL Normal 4.4-11.0 [facility] Comment on above: Performed By: #### L 400.0001, #### [facility] [address] [place], [address] Determination of erythrocyte mean corpuscular volume (MCV)Ordered By: Antonella Marrero on 09-27-2023 MCV (RBC) [Entitic vol] 91.3 fL 80-94 [facility] Erythrocyte distribution wid th ratioOrdered By: Antonella Marrero on 09-27-2023 Erythrocyte distribution width (RBC) [Ratio] 14.1 % 11.6-14.6 [facility] Erythrocyte distribution wid th standard deviationOrdered By: Antonella Marrero on 09-27-2023 Erythrocyte distribution width (RBC) [Entitic vol] 47.4 fL 35.1-43.9 [facility] Hematocrit Auto (Bld) [Volum e fraction]Ordered By: Antonella Marerro on 09-27-2023 Hematocrit (Bld) [Volume fraction] 35.6 % 40-54 [facility] Laboratory - Chemistry and C hemistry - challengeOrdered By: Antonella Marrero on 09-27-2023 CO2 [Moles/Vol] 28.0 mmol/L 21.0-32.0 [facility] Urea nitrogen/Creatinine [Mass ratio] 5.2 mg/mg 10-20 [facility] - Hematology and Cell countsOrdered By: Antonella Marrero on 09-27-2023 MCH (RBC) [Entitic mass] 29.5 pg 27.0-32.0 [facility] MCHC (RBC) [Mass/Vol] 32.3 g/dL 32-36 [facility] Platelet mean volume (Bld) [Entitic vol] 9.6 fL 6.2-12.0 [facility] Platelets (Bld) [#/Vol] 217 10*3/uL 150-450 [facility] No Panel InformationOrdered By: Antonella Marrero on 09-27-2023 Estimated GFR (MDRD) Amer 104 mL/min >60 [facility] Comment on above: GFR Calc Estimated GFR (MDRD) Non-Af Amer 86 mL/min >60 [facility] Comment on above: Non- GFR Calc RBC Auto (Bld) [#/Vol]Ordere d By: Antonella Marrero on 09-27-2023 RBC (Bld) [#/Vol] 3.90 10*6/uL 4.6-6.2 [facility] Serum or plasma calcium zakiya urement (mass/volume)Ordered By: Antonella Marrero on 09-27-2023 Calcium [Mass/Vol] 8.8 mg/dL 8.5-10.1 [facility] Serum or plasma creatinine m easurement (mass/volume)Ordered By: Antonella Marrero on 09-27-2023 Creatinine [Mass/Vol] 0.96 mg/dL 0.70-1.30 [facility] Comment on above: The validity of the calculated GFR & GFRAA in patients over 70 years has not been determined. Clinical correlation is essential. Serum or plasma urea nitroge n measurement (mass/volume)Ordered By: Antonella Marrero on 09-27-2023 Urea nitrogen [Mass/Vol] 5 mg/dL -18 [facility] Thin prep Papanicolaou smear with manual screeningOrdered By: Antonella Marrero on 09-27-2023 Thin prep Papanicolaou smear with manual screening 4 -15 [facility] 36on 09-24-2023 36 Letter mailed. No Panel InformationOrdered By: Antonella Marrero on 09-24-2023 Valproic Acid (Depakene) Level 80 ug/mL 50-100 [facility] Valproic Acid (Depakene) Lev caesar 09-24-2023 VALPROIC ACID 80 ug/mL Normal 50-100 [facility] Comment on above: Order Comment: 106.2 Performed By: #### L 500.2500, L100.0500 #### [facility] [address] [place], [address] 36on 09-23-2023 36 Hello, We have been unable to reach your patient to schedule their testing. Test Name: Sleep study 1st Attempt: 06/18/23 LVM 2nd Attempt: 09/23/23 LVM Thank you Basophil percentageOrdered B y: Antonella Marrero on 09-16-2023 Cholesterol [Mass/Vol] 148 mg/dL <200 [facility] Comment on above: <200 mg/dL Desirable 200-240 mg/dL Borderline >240 mg/dL High Risk Triglyceride [Mass/Vol] 242 mg/dL <199 [facility] Comment on above: The drugs N-Acetylcy steine and Metamizole may falsely depress this assay.Serum Triglycerides Reference Interval Normal <150 mg/dL Borderline high 150 - 199 mg/dL High 200 - 499 mg/dL Very High > or = 500 mg/dL Laboratory - Chemistry and C hemistry - challengeOrdered By: Antonella Marrero on 09-16-2023 Cholesterol in HDL [Mass/Vol] 24 mg/dL >40 [facility] Comment on above: The drugs N-Acetylcy steine and Metamizole may falsely depress this assay. Reference Range HDL <40 mg/dL Low HDL Cholesterol HDL >or= 60 mg/dL High HDL Cholesterol Cholesterol in LDL [Mass/Vol] 76 mg/dL 0-130 [facility] No Panel InformationOrdered By: Antonella Marrero on 09-16-2023 Valproic Acid (Depakene) Level 64 ug/mL 50-100 [facility] VLDL Cholesterol 48 mg/dL 5-40 [facility] 36on 2023 36 Hello, We wanted to inform you that your patient has missed their appointment more than once for a Nuclear Regadenoson stress test ordered by Dr.Saurav Parker Please advise and thank you Normal [facility] Basophil percentageOrdered B y: Antonella Marrero on 09-14-2023 Basophil percentage 63.30 ng/mL 0.0-4.0 [facility] Comment on above: This test was perfor med using the TPSA assay method for themension chemistry system. Values obtained with differentassay methods cannot be used interchangably.When changing PSA assays in the course of monitoring apatient, additional sequential testing should be carriedout to confirm baseline values. Basophil percentageOrdered B y: Antonella Marrero on 09-13-2023 Basophil percentage 10-25 SEEN /hpf 0-5 [facility] Bilirubin Test strip Ql (U)O rdered By: Antonella Marrero on 09-13-2023 Bilirubin Ql (U) Negative Negative [facility] Culture, urineOrdered By: Romie Berry on 09-13-2023 Bacteria identified Cx Nom (U) Staphylococcus hominis hominis [facility] Ketones Test strip Ql (U)Ord ered By: Antonella Marrero on 09-13-2023 Ketones Ql (U) Negative Negative [facility] Mucus LM Ql (Urine sed)Order ed By: Antonella Marrero on 09-13-2023 Mucus Ql (Urine sed) 0 SEEN /hpf [facility] Nitrite Test strip Ql (U)Ord ered By: Antonella Marrero on 09-13-2023 Nitrite Ql (U) Negative Negative [facility] No Panel InformationOrdered By: Antonella Marrero on 09-13-2023 Urine RBC 0-5 SEEN /hpf 0-5 [facility] Protein Test strip Ql (U)Ord ered By: Antonella Marrero on 09-13-2023 Protein Ql (U) 15 mg/dl Negative [facility] Squamous epithelial cells de tection in urine sediment by light microscopyOrdered By: Antonella Marrero on 09-13-2023 Epithelial cells.squamous LM Ql (Urine sed) 0-5 SEEN /hpf 0-5 [facility] Urine blood detectionOrdered By: Antonella Marrero on 09-13-2023 RBC Ql (U) 10 /ul Negative [facility] Urine clarityOrdered By: Nidhi Marrero on 09-13-2023 Clarity (U) Clear Clear [facility] Urine color determinationOrd ered By: Antonella Marrero on 09-13-2023 Color (U) Yellow Yellow [facility] Urine glucose detectionOrder ed By: Antonella Marrero on 09-13-2023 Glucose Ql (U) Normal mg/dl Normal [facility] Urine leukocyte esterase det ection by dipstickOrdered By: Antonella Marrero on 09-13-2023 Leukocyte esterase Test strip Ql (U) 100 /ul Negative [facility] Urine pHOrdered By: Antonella mitchell on 09-13-2023 pH (U) 6.5 [pH] 5.0 - 8.0 [facility] Urine sediment bacteria coun t by microscopy (number/high power field)Ordered By: Antonella Marrero on 09-13-2023 Bacteria LM.HPF (Urine sed) [#/Area] 2 /[HPF] None Seen [facility] Urine specific gravity measu rementOrdered By: Antonella Marrero on 09-13-2023 Specific gravity (U) [Rel density] 1.010 1.002-1.03 0 [facility] Urine urobilinogen measureme ntOrdered By: Antonella Marrero on 09-13-2023 Urobilinogen Ql (U) Normal mg/dl Normal [facility] Basophil percentageOrdered B y: Antonella Marrero on 08-30-2023 Bilirubin [Mass/Vol] 0.60 mg/dL 0.20-1.00 [facility] Comment on above: For patients on eltr ombopag therapy, use of Dimension [place] TBIL is not recommended. Chloride [Moles/Vol] 103 mmol/L 98-107 [facility] Glucose [Mass/Vol] 99 mg/dL 74-106 [facility] Hemoglobin (Bld) [Mass/Vol] 13.4 g/dL 13.0-16.5 [facility] Potassium [Moles/Vol] 4.1 mmol/L 3.5-5.1 [facility] Comment on above: Slight Hemolysis, Re sult may be falsely increased. Protein [Mass/Vol] 7.3 g/dL 6.4-8.2 [facility] Sodium [Moles/Vol] 135 mmol/L 136-145 [facility] WBC (Bld) [#/Vol] 4.9 10*3/uL 4.4-11.0 [facility] Determination of erythrocyte mean corpuscular volume (MCV)Ordered By: Antonella Marrero on 08-30-2023 MCV (RBC) [Entitic vol] 92.3 fL 80-94 [facility] Erythrocyte distribution wid th ratioOrdered By: Antonella Marrero on 08-30-2023 Erythrocyte distribution width (RBC) [Ratio] 13.7 % 11.6-14.6 [facility] Erythrocyte distribution wid th standard deviationOrdered By: Antonella Marrero on 08-30-2023 Erythrocyte distribution width (RBC) [Entitic vol] 46.9 fL 35.1-43.9 [facility] Hematocrit Auto (Bld) [Volum e fraction]Ordered By: Antonella Marrero on 08-30-2023 Hematocrit (Bld) [Volume fraction] 41.0 % 40-54 [facility] Laboratory - Chemistry and C hemistry - challengeOrdered By: Antonella Marrero on 08-30-2023 Albumin/Globulin [Mass ratio] 0.7 {ratio} 0.9-2.4 [facility] ALP [Catalytic activity/Vol] 95 U/L 45-117 [facility] ALT [Catalytic activity/Vol] 21 U/L 16-61 [facility] CO2 [Moles/Vol] 25.0 mmol/L 21.0-32.0 [facility] Globulin (S) [Mass/Vol] 4.3 g/dL 2.2-4.2 [facility] Urea nitrogen/Creatinine [Mass ratio] 6.2 mg/mg 10-20 [facility] Laboratory - Hematology and Cell countsOrdered By: Antonella Marrero on 08-30-2023 MCH (RBC) [Entitic mass] 30.2 pg 27.0-32.0 [facility] MCHC (RBC) [Mass/Vol] 32.7 g/dL 32-36 [facility] Platelet mean volume (Bld) [Entitic vol] 9.1 fL 6.2-12.0 [facility] Platelets (Bld) [#/Vol] 196 10*3/uL 150-450 [facility] No Panel InformationOrdered By: Antonella Marrero on 08-30-2023 Estimated GFR (MDRD) Amer 74 mL/min >60 [facility] Comment on above: GFR Calc Estimated GFR (MDRD) Non-Af Amer 61 mL/min >60 [facility] Comment on above: Non- GFR Calc RBC Auto (Bld) [#/Vol]Ordere d By: Antonella Marrero on 08-30-2023 RBC (Bld) [#/Vol] 4.44 10*6/uL 4.6-6.2 [facility] Serum or plasma calcium zakiya urement (mass/volume)Ordered By: Antonella Marrero on 08-30-2023 Calcium [Mass/Vol] 9.1 mg/dL 8.5-10.1 [facility] Serum or plasma creatinine m easurement (mass/volume)Ordered By: Antonella Marrero on 08-30-2023 Creatinine [Mass/Vol] 1.30 mg/dL 0.70-1.30 [facility] Comment on above: The validity of the calculated GFR & GFRAA in patients over 70 years has not been determined. Clinical correlation is essential. Serum or plasma urea nitroge n measurement (mass/volume)Ordered By: Antonella Marrero on 08-30-2023 Urea nitrogen [Mass/Vol] 8 mg/dL 7-18 [facility] Thin prep Papanicolaou smear with manual screeningOrdered By: Antonella Marrero on 08-30-2023 Thin prep Papanicolaou smear with manual screening 3.0 g/dL 3.2-5.0 [facility] Thin prep Papanicolaou smear with manual screening 30 U/L 15-37 [facility] Comment on above: Slight Hemolysis, Re sult may be falsely increased. Thin prep Papanicolaou smear with manual screening 7 5-15 [facility] BASIC METABOLIC PANELon 07-30 Anion gap [Moles/Vol] 6 mmol/L Normal 3-13 [facility] Comment on above: Performed By: #### L [id number], [id number] ####Automotive Title Clerk: ABRAN HANEY ([id number])[facility] (SB[facility])[address] Calcium [Mass/Vol] 8.6 mg/dL Normal 8.4-10.4 [facility] Comment on above: Performed By: #### L [id number], [id number] ####Automotive Title Clerk: ABRAN HANEY ([id number])[facility] (SBHLAB)[address] Chloride [Moles/Vol] 106 mmol/L Normal 98-107 [facility] Comment on above: Performed By: #### L [id number], [id number] ####Automotive Title Clerk: ABRAN HANEY ([id number])[facility] (SBHLAB)[address] [place] [address] [place] CO2 [Moles/Vol] 24 mmol/L Normal 22-30 [facility] Comment on above: Performed By: #### L [id number], [id number] ####Automotive Title Clerk: ABRAN HANEY ([id number])[facility] (SBHLAB)[address] Creatinine [Mass/Vol] 1.05 mg/dL Normal 0.66-1.25 [facility] Comment on above: Performed By: #### L [id number], [id number] ####Automotive Title Clerk: ABRAN HANEY ([id number])[facility] (SBHLAB)[address] GLOMERULAR FILTRATION RATE ML/MIN/1.73 SQ M.PREDICTED 84.4 mL/min/1.73m*2 Normal >60.0 [facility] Comment on above: Result Comment: Calc ulation based on the Chronic Kidney Disease Epidemiology Collaboration (CKD-EPI) equation refit without adjustment for race Performed By: #### L [id number], [id number] ####Automotive Title Clerk: ABRAN HANEY ([id number])[facility] [place] (SBHLAB)[address] [place] [address] [place] Glucose [Mass/Vol] 127 mg/dL High 70-100 [facility] Comment on above: Performed By: #### L [id number], [id number] ####Automotive Title Clerk: ABRAN HANEY ([id number])[facility] (SBHLAB)[address] Potassium [Moles/Vol] 3.5 mmol/L Normal 3.5-5.1 [facility] Comment on above: Performed By: #### L [id number], [id number] ####Automotive Title Clerk: ABRAN HANEY ([id number])[facility] (SBHLAB)[address] [place] [address] [place] Sodium [Moles/Vol] 136 mmol/L Normal 135-145 [facility] Comment on above: Performed By: #### L [id number], [id number] ####Automotive Title Clerk: ABRAN HANEY ([id number])[facility] (SBHLAB)[address] [place] [address] [place] Urea nitrogen [Mass/Vol] 9 mg/dL Normal 9-20 [facility] Comment on above: Performed By: #### L [id number], [id number] ####Automotive Title Clerk: ABRAN HANEY ([id number])[facility] (SBHLAB)[address] Basic metabolic 1998 panelon 08-21-2023 Anion gap [Moles/Vol] 6 mmol/L 3 - 13 mmol/L [facility] [place] Calcium [Mass/Vol] 8.6 mg/dL 8.4 - 10. 4 mg/dL [facility] [place] Chloride [Moles/Vol] 106 mmol/L 98 - 10 7 mmol/L [facility] [place] CO2 [Moles/Vol] 24 mmol/L 22 - 30 mmol/L [facility] [place] Creatinine [Mass/Vol] 1.05 mg/dL 0.66 - 1.25 mg/dL [facility] GFR/1.73 sq M.predicted MDRD (S/P/Bld) [Vol rate/Area] 84.4 mL/min/{1.73_m2} - PINF [facility] Comment on above: Calculation based on the Chronic Kidney Disease Epidemiology Collaboration (CKD-EPI) equation refit without adjustment for race Glucose [Mass/Vol] 127 mg/dL High 70 - 100 mg/dL [facility] Interpretation and review of laboratory results Abnormal [facility] Potassium [Moles/Vol] 3.5 mmol/L 3.5 - 5.1 mmol/L [facility] Sodium [Moles/Vol] 136 mmol/L 135 - 145 mmol/L [facility] n[place] Urea nitrogen [Mass/Vol] 9 mg/dL 9 - 20 mg/dL [facility] CARECOORDon 08-21-2023 [facility] Next Site of Care Admission Date: 08/19/2023 02:14 AM Patient Name: KARI ALLAN Location: [address] CARDIAC PCU/[facility] [id number] Date of : 1970 Placement Information Referral Type:Snf ICF - Return Referral ID:[id number] Provider Name:[facility] Address 1:[address] Sifuentes Address 2: City:[place] Selection Factors:Returning to Facility State:[facility] Care Coordination pati Note/Update Clinical Update: admitted with abdominal pain and right leg pain with reported coffee-ground emesis and dark stools. History of alcohol abuse with anoxic brain injury. Found to have upper GI bleed with normal EGD. On IV protonix. Discharge Plan: return to [facility] Discharge Barriers: clinical stability Chart reviewed. Checked [facility] - [facility], patient able to return with no auth needed. On bed hold - just needs COVID test to return. Messaged attending to check on clinical stability for discharge. Awaiting response. Received response back from attending - patient cleared for discharge. Requested MD order COVID test per facility request. Messaged RN to notify of COVID test and to request assistance in determining patient transport requirements - okay for wheelchair per RN. Setup wheelchair transport with [facility] for 1200. Phoned patient's sister, Karo Sanford, at [phone] to notify of discharge and transport time. RN notified. RN will notify patient. Messaged facility via [facility]Port to notify of discharge and transport time. Alerted them to COVID test being ordered and assured results would be sent with AVS and MAR shortly. Discharge orders still pending. TCC portion of BONNIE completed. Sent negative COVID test, AVS, and MAR to facility via [facility]. BONNIE complete. Discharge orders placed. TCC will remain available for any additional discharge needs. Normal [facility] CBC W Auto Differential pane l (Bld)on 08-21-2023 Basophils (Bld) [#/Vol] 0.0 10*3/uL 0.0 - 0.2 10*3/uL [facility] Basophils/100 WBC (Bld) 0.5 % 0.0 - 2.0 % [facility] Eosinophils (Bld) [#/Vol] 0.2 10*3/uL 0.0 - 0.5 10*3/uL [facility] Eosinophils/100 WBC (Bld) 3.5 % 0.0 - 6.0 % [facility] Erythrocyte distribution width (RBC) [Ratio] 13.8 % 11.5 - 15.0 % [facility] Hematocrit (Bld) [Volume fraction] 33.6 % Low 40.0 - 52.0 % [facility] Hemoglobin (Bld) [Mass/Vol] 11.5 g/dL Low 13.0 - 18.0 g/dL [facility] Immature granulocytes (Bld) [#/Vol] 0.0 10*3/uL NINF - 0.1 10*3/uL [facility] Immature granulocytes/100 WBC (Bld) 0.5 % 0.0 - 2.0 % [facility] Interpretation and review of laboratory results Abnormal [facility] Lymphocytes (Bld) [#/Vol] 2.2 10*3/uL 1.0 - 4.3 10*3/uL [facility] Lymphocytes/100 WBC (Bld) 38.9 % 15.0 - 45.0 % [facility] MCH (RBC) [Entitic mass] 30.3 pg 26.0 - 34.0 pg [facility] MCHC (RBC) [Mass/Vol] 34.2 % 30.5 - 36.0 % [facility] MCV (RBC) [Entitic vol] 88.4 fL 77.0 - 99.0 fL [facility] Monocytes (Bld) [#/Vol] 0.5 10*3/uL 0.0 - 0.9 10*3/uL [facility] Monocytes/100 WBC (Bld) 8.9 % 5.0 - 13.0 % [facility] Neutrophils (Bld) [#/Vol] 2.7 10*3/uL 1.8 - 7.5 10*3/uL [facility] Neutrophils/100 WBC (Bld) 47.7 % 38.0 - 82.0 % [facility] Nucleated RBC/100 WBC (Bld) [Ratio] 0.0 % [facility] Platelet mean volume (Bld) [Entitic vol] 8.6 fL Low 9.0 - 12.7 fL [facility] Platelets (Bld) [#/Vol] 175 10*3/uL 140 - 440 10*3/uL [facility] RBC (Bld) [#/Vol] 3.80 10*6/uL Low 4.40 - 5.90 10*6/uL [facility] WBC (Bld) [#/Vol] 5.7 10*3/uL 3.6 - 10.7 10*3/uL [facility] CBC WITH AUTO DIFFERENTIALon 08-21-2023 Basophils (Bld) [#/Vol] 0.0 10*3/uL Normal 0.0-0.2 [facility] Comment on above: Performed By: #### L [id number] ####Automotive Title Clerk: ABRAN HANEY ([id number])[facility] ([facility])[address] [place] [address] Basophils/100 WBC (Bld) 0.5 % Normal 0.0-2.0 [facility] Comment on above: Performed By: #### L [id number] ####Automotive Title Clerk: ABRAN HANEY ([id number])[facility] ([facility])[address] [place] [address] Eosinophils (Bld) [#/Vol] 0.2 10*3/uL Normal 0.0-0.5 [facility] Comment on above: Performed By: #### L [id number] ####Automotive Title Clerk: ABRAN HANEY ([id number])[facility] (SBHLAB)[address] Eosinophils/100 WBC (Bld) 3.5 % Normal 0.0-6.0 [facility] Comment on above: Performed By: #### L [id number] ####Automotive Title Clerk: ABRAN HANEY ([id number])[facility] (SBAB)[address] Erythrocyte distribution width (RBC) [Ratio] 13.8 % Normal 11.5-15.0 [facility] Comment on above: Performed By: #### L [id number] ####Automotive Title Clerk: ABRAN HANEY ([id number])[facility] [place] [address] Hematocrit (Bld) [Volume fraction] 33.6 % Low 40.0-52.0 [facility] Comment on above: Performed By: #### L [id number] ####Automotive Title Clerk: ABRAN HANEY ([id number])[facility] ([facility])[address] [place] [address] Hemoglobin (Bld) [Mass/Vol] 11.5 g/dL Low 13.0-18.0 [facility] Comment on above: Performed By: #### L [id number] ####Automotive Title Clerk: ABRAN HANEY ([id number])[facility] (SBAB)[address] IMMATURE GRANS % 0.5 % Normal 0.0-2.0 [facility] Comment on above: Performed By: #### L [id number] ####Automotive Title Clerk: ABRAN HANEY ([id number])[facility] ([facility] IMMATURE GRANS ABSOLUTE 0.0 10*3/uL Normal <0.1 [facility] Comment on above: Performed By: #### L [id number] ####Automotive Title Clerk: ABRAN HANEY ([id number])[facility] [facility] (SBHLAB)[address] Lymphocytes (Bld) [#/Vol] 2.2 10*3/uL Normal 1.0-4.3 [facility] Comment on above: Performed By: #### L [id number] ####Automotive Title Clerk: ABRAN HANEY ([id number])[facility] (SBHLAB)[address] Lymphocytes/100 WBC (Bld) 38.9 % Normal 15.0-45.0 [facility] Comment on above: Performed By: #### L [id number] ####Automotive Title Clerk: ABRAN HANEY ([id number])[facility] (SBHLAB)[address] MCH (RBC) [Entitic mass] 30.3 pg Normal 26.0-34.0 [facility] Comment on above: Performed By: #### L [id number] ####Automotive Title Clerk: ABRAN HANEY ([id number])[facility] (SBHLAB)[address] MCHC 34.2 % Normal 30.5-36.0 [facility] Comment on above: Performed By: #### L [id number] ####Automotive Title Clerk: ABRAN HANEY ([id number])[facility] (SBHLAB)[address] MCV (RBC) [Entitic vol] 88.4 fL Normal 77.0-99.0 [facility] Comment on above: Performed By: #### L [id number] ####Automotive Title Clerk: ABRAN HANEY ([id number])[facility] (SBHLAB)[address] Monocytes (Bld) [#/Vol] 0.5 10*3/uL Normal 0.0-0.9 [facility] Comment on above: Performed By: #### L [id number] ####Automotive Title Clerk: ABRAN HANEY ([id number])[facility] (SBHLAB)[address] Monocytes/100 WBC (Bld) 8.9 % Normal 5.0-13.0 [facility] Comment on above: Performed By: #### L [id number] ####Automotive Title Clerk: ABRAN HANEY ([id number])[facility] [place] ([facility])[address] NEUTROPHILS ABSOLUTE 2.7 10*3/uL Normal 1.8-7.5 [facility] Comment on above: Performed By: #### L [id number] ####Automotive Title Clerk: ABRAN HANEY ([id number])[facility] [place] ([facility])[address] Neutrophils/100 WBC (Bld) 47.7 % Normal 38.0-82.0 [facility] Comment on above: Performed By: #### L [id number] ####Automotive Title Clerk: ABRAN HANEY ([id number])[facility] [place] ([facility])[address] NRBC 0.0 /100 WBCs Normal 0.0-2.0 [facility] Comment on above: Performed By: #### L [id number] ####Automotive Title Clerk: ABRAN HANEY ([id number])[facility] [place] ([facility])[address] Platelet mean volume (Bld) [Entitic vol] 8.6 fL Low 9.0-12.7 [facility] Comment on above: Performed By: #### L [id number] ####Automotive Title Clerk: ABRAN HANEY ([id number])[facility] [place] ([facility])[address] [place] [address] [place] Platelets (Bld) [#/Vol] 175 10*3/uL Normal 140-440 [facility] Comment on above: Performed By: #### L [id number] ####Automotive Title Clerk: ABRAN HANEY ([id number])[facility] (SBHLAB)[address] RBC (Bld) [#/Vol] 3.80 10*6/uL Low 4.40-5.90 [facility] Comment on above: Performed By: #### L [id number] ####Automotive Title Clerk: ABRAN MEDINA ([id number])[facility] [place] (SBHLAB)[address] WBC (Bld) [#/Vol] 5.7 10*3/uL Normal 3.6-10.7 [facility] Comment on above: Performed By: #### L [id number] ####Automotive Title Clerk: ABRAN FRENCHKeeganQUIANA ([id number])[facility] (SBHLAB)[address] HEMOGLOBIN AND HEMATOCRIT, B LOODon 08-21-2023 Hematocrit (Bld) [Volume fraction] 35.6 % Low 40.0-52.0 [facility] Comment on above: Performed By: #### L [id number] ####Automotive Title Clerk: ABRAN HANEY ([id number])[facility] [facility] CENTERTy[facility] (SBHLAB)[address] Hemoglobin (Bld) [Mass/Vol] 12.2 g/dL Low 13.0-18.0 [facility] Comment on above: Performed By: #### L [id number] ####Automotive Title Clerk: ABRAN SAMPSONQUIANA ([id number])[facility] (SBHLAB)[address] [place] [address] [place] Hemoglobin (Bld) [Mass/Vol]o n 08-21-2023 Hematocrit (Bld) [Volume fraction] 35.6 % Low 40.0 - 52.0 % [facility] Interpretation and review of laboratory results Abnormal [facility] IDNon 08-21-2023 IDN Problem: Pain - Adul t Goal: Verbalizes/displays adequate comfort level or baseline comfort level Outcome: Progressing Problem: Safety - Adult Goal: Free from fall injury Outcome: Progressing Problem: Discharge Planning Goal: Discharge to home or other facility with appropriate resources Outcome: Progressing Problem: Chronic Conditions and Co-morbidities Goal: Patient's chronic conditions and co-morbidity symptoms are monitored and maintained or improved Outcome: Progressing The patient is Moderately Stable - Low risk of patient condition declining or worsening The patient's goals for the shift include rest The clinical goals for the shift include orientation to new surroundings Over the shift, the patient did not make progress toward the following goals. Barriers to progression include cognitive barrier. Recommendations to address these barriers include reorient as needed. Normal [facility] Laboratory - Chemistry and C hemistry - challengeon 08-21-2023 Magnesium [Mass/Vol] 2.3 mg/dL 1.6 - 2 .3 mg/dL [facility] - Hematology and Cell countson 08-21-2023 Hemoglobin (Bld) [Mass/Vol] 12.2 g/dL Low 13.0 - 18.0 g/dL [facility] - Microbiology an d Antimicrobial susceptibilityOrdered By: Pearl Talamantes on 08-21-2023 SARS-CoV-2 (COVID-19) Ag IA.rapid Ql (Resp) Negative Negative [facility] Comment on above: A negative result do es not rule out the possibility of SARS-CoV-2 infection. NAAT-based methods should be considered for symptomatic patients presenting greater than seven days after onset of symptoms. Method: Lateral flow immunoassay. Fact sheets for healthcare providers and patients can be found at the following sites: https://www.fda.gov/media/937326/download https://www.fda.gov/media/820360/download MAGNESIUMon 08-21-2023 Magnesium [Mass/Vol] 2.3 mg/dL Normal 1.6-2.3 [facility] Comment on above: Performed By: #### L AB15, [id number] ####Automotive Title Clerk: ABRAN HANEY ([id number])[facility] ([facility])[address] [place] [address] Magnesium [Mass/Vol]on 08-20 Interpretation and review of laboratory results Normal [facility] Progress Noteon 08-21-2023 Progress Note Nutrition rescreen complete. Pt assigned a level one for nutrition care. Normal [facility] SARS-COV-2 ANTIGENon 024 SARS-COV-2 ANTIGEN SARS-COV-2 ANTIGEN - BINAX Reference Negative Negative A negative result does not rule out the possibility of SARS-CoV-2 infection. NAAT-based methods should be considered for symptomatic patients presenting greater than seven days after onset of symptoms. Method: Lateral flow immunoassay. Fact sheets for healthcare providers and patients can be found at the following sites: https://www.[place].gov/media/1 31247/download https://www.[place].gov/media/ 17369/download Normal [facility] Comment on above: Performed By: #### L [id number] #### Automotive Title Clerk: ABRAN HANEY ([id number]) [facility] [address] SARS-CoV-2 (COVID-19) Ag IA. rapid Ql (Resp)Ordered By: Pearl Talamantes on 08-21-2023 Interpretation and review of laboratory results Normal [facility] BASIC METABOLIC PANELon 07-30 Anion gap [Moles/Vol] 8 mmol/L Normal 3-13 [facility] Comment on above: Performed By: #### L [id number], [id number] ####Automotive Title Clerk: ABRAN HANEY ([id number])[facility] ([facility])[address] Calcium [Mass/Vol] 8.6 mg/dL Normal 8.4-10.4 [facility] Comment on above: Performed By: #### L [id number], LAB15 ####Automotive Title Clerk: ABRAN HANEY ([id number])[facility] ([facility])[address] Chloride [Moles/Vol] 101 mmol/L Normal 98-107 [facility] Comment on above: Performed By: #### L AB103, LAB15 ####Automotive Title Clerk: ABRAN HANEY ([id number])[facility] (HLAB)[address] CO2 [Moles/Vol] 27 mmol/L Normal 22-30 [facility] Comment on above: Performed By: #### L AB103, LAB15 ####Automotive Title Clerk: ABRAN HANEY ([id number])[facility] ([facility])[address] Creatinine [Mass/Vol] 1.03 mg/dL Normal 0.66-1.25 [facility] Comment on above: Performed By: #### L AB103, LAB15 ####Automotive Title Clerk: ABRAN HANEY ([id number])[facility] (SBHLAB)[address] GLOMERULAR FILTRATION RATE ML/MIN/1.73 SQ M.PREDICTED 86.3 mL/min/1.73m*2 Normal >60.0 [facility] Comment on above: Result Comment: Calc ulation based on the Chronic Kidney Disease Epidemiology Collaboration (CKD-EPI) equation refit without adjustment for race Performed By: #### L AB103, LAB15 ####Automotive Title Clerk: ABRAN HANEY ([id number])[facility] (SB[facility])[address] Glucose [Mass/Vol] 91 mg/dL Normal 70-100 [facility] Comment on above: Performed By: #### L AB103, LAB15 ####Automotive Title Clerk: ABRAN HANEY ([id number])[facility] (SBHLAB)[address] Potassium [Moles/Vol] 3.3 mmol/L Low 3.5-5.1 [facility] Comment on above: Performed By: #### L AB103, LAB15 ####Automotive Title Clerk: ABRAN HANEY ([id number])[facility] (SBHLAB)[address] [place] [address] [place] Sodium [Moles/Vol] 135 mmol/L Normal 135-145 [facility] Comment on above: Performed By: #### L AB103, LAB15 ####Automotive Title Clerk: ABRAN HANEY ([id number])[facility] ([facility])[address] [place] [address] [place] Urea nitrogen [Mass/Vol] 11 mg/dL Normal 9-20 [facility] Comment on above: Performed By: #### L AB103, LAB15 ####Automotive Title Clerk: ABRAN HANEY ([id number])[facility] (SB[facility])[address] Basic metabolic 1998 panelon 08-20-2023 Anion gap [Moles/Vol] 8 mmol/L 3 - 13 mmol/L [facility] Calcium [Mass/Vol] 8.6 mg/dL 8.4 - 10. 4 mg/dL [facility] Chloride [Moles/Vol] 101 mmol/L 98 - 10 7 mmol/L [facility] CO2 [Moles/Vol] 27 mmol/L 22 - 30 mmol/L [facility] Creatinine [Mass/Vol] 1.03 mg/dL 0.66 - 1.25 mg/dL [facility] GFR/1.73 sq M.predicted MDRD (S/P/Bld) [Vol rate/Area] 86.3 mL/min/{1.73_m2} - PINF [facility] Comment on above: Calculation based on the Chronic Kidney Disease Epidemiology Collaboration (CKD-EPI) equation refit without adjustment for race Glucose [Mass/Vol] 91 mg/dL 70 - 100 mg/dL [facility] Interpretation and review of laboratory results Abnormal [facility] Potassium [Moles/Vol] 3.3 mmol/L Low 3.5 - 5.1 mmol/L [facility] Sodium [Moles/Vol] 135 mmol/L 135 - 145 mmol/L [facility] Urea nitrogen [Mass/Vol] 11 mg/dL 9 - 20 mg/dL [facility] CBC W Auto Differential pane l (Bld)Ordered By: Elliot Mclean on 08-20-2023 Erythrocyte distribution width (RBC) [Ratio] 13.3 % 11.5 - 15.0 % [facility] Hematocrit (Bld) [Volume fraction] 32.7 % Low 40.0 - 52.0 % [facility] Hemoglobin (Bld) [Mass/Vol] 11.1 g/dL Low 13.0 - 18.0 g/dL [facility] MCH (RBC) [Entitic mass] 30.2 pg 26.0 - 34.0 pg [facility] MCHC (RBC) [Mass/Vol] 33.9 % 30.5 - 36.0 % [facility] MCV (RBC) [Entitic vol] 89.1 fL 77.0 - 99.0 fL [facility] Platelet mean volume (Bld) [Entitic vol] 9.2 fL 9.0 - 12.7 fL [facility] Platelets (Bld) [#/Vol] 153 10*3/uL 140 - 440 10*3/uL [facility] RBC (Bld) [#/Vol] 3.67 10*6/uL Low 4.40 - 5.90 10*6/uL [facility] WBC (Bld) [#/Vol] 5.4 10*3/uL 3.6 - 10.7 10*3/uL [facility] CBC WITH AUTO DIFFERENTIALon 08-20-2023 Erythrocyte distribution width (RBC) [Ratio] 13.3 % Normal 11.5-15.0 [facility] Comment on above: Performed By: #### L [id number], [id number] ####Automotive Title Clerk: ABRAN HANEY ([id number])[facility] ([facility])[address] [place] [address] Hematocrit (Bld) [Volume fraction] 32.7 % Low 40.0-52.0 [facility] Comment on above: Performed By: #### L [id number], [id number] ####Automotive Title Clerk: ABRAN HANEY ([id number])[facility])[address] [place] [address] Hemoglobin (Bld) [Mass/Vol] 11.1 g/dL Low 13.0-18.0 [facility] Comment on above: Performed By: #### L [id number], [id number] ####Automotive Title Clerk: ABRAN HANEY ([id number])[facility] MCH (RBC) [Entitic mass] 30.2 pg Normal 26.0-34.0 [facility] Comment on above: Performed By: #### L [id number], [id number] ####Automotive Title Clerk: ABRAN HANEY ([id number])[facility] (SB[facility])[address] MCHC 33.9 % Normal 30.5-36.0 [facility] Comment on above: Performed By: #### L [id number], [id number] ####Automotive Title Clerk: ABRAN HANEY ([id number])[facility] [place] (SBHLAB)[address] MCV (RBC) [Entitic vol] 89.1 fL Normal 77.0-99.0 [facility] Comment on above: Performed By: #### L [id number], [id number] ####Automotive Title Clerk: ABRAN HANEY ([id number])[facility] (SBHLAB)[address] Platelet mean volume (Bld) [Entitic vol] 9.2 fL Normal 9.0-12.7 [facility] Comment on above: Performed By: #### L [id number], [id number] ####Automotive Title Clerk: ABRAN HANEY ([id number])[facility] [facility] (SBHLAB)[address] [place] [address] [place] Platelets (Bld) [#/Vol] 153 10*3/uL Normal 140-440 [facility] Comment on above: Performed By: #### L [id number], [id number] ####Automotive Title Clerk: ABRAN HANEY ([id number])[facility] (SB[facility])[address] RBC (Bld) [#/Vol] 3.67 10*6/uL Low 4.40-5.90 [facility] Comment on above: Performed By: #### L [id number], [id number] ####Automotive Title Clerk: ABRAN HANEY ([id number])[facility] (SBHLAB)[address] [place] [address] [place] WBC (Bld) [#/Vol] 5.4 10*3/uL Normal 3.6-10.7 [facility] Comment on above: Performed By: #### L [id number], [id number] ####Automotive Title Clerk: ABRAN HANEY ([id number])[facility] (SB[facility]AB)[address] HEMOGLOBIN AND HEMATOCRIT, B LOODon 08-20-2023 Hematocrit (Bld) [Volume fraction] 32.4 % Low 40.0-52.0 [facility] Comment on above: Performed By: #### L [id number] ####Automotive Title Clerk: ABRAN HANEY ([id number])[facility] [place] (SB[facility])[address] Hemoglobin (Bld) [Mass/Vol] 11.1 g/dL Low 13.0-18.0 [facility] Comment on above: Performed By: #### L [id number] ####Automotive Title Clerk: ABRAN HANEY ([id number])[facility] [place] (SB[facility])[address] Hematocrit (Bld) [Volume fraction] 33.6 % Low 40.0-52.0 [facility] Comment on above: Performed By: #### L [id number] ####Automotive Title Clerk: ABRAN HANEY ([id number])[facility] [place] (SB[facility])[address] Hemoglobin (Bld) [Mass/Vol] 11.6 g/dL Low 13.0-18.0 [facility] Comment on above: Performed By: #### L [id number] ####Automotive Title Clerk: ABRAN HANEY ([id number])[facility] [place] (SB[facility]AB)[address] [place] [address] [place] Hemoglobin (Bld) [Mass/Vol]o n 08-20-2023 Hematocrit (Bld) [Volume fraction] 32.4 % Low 40.0 - 52.0 % [facility] Interpretation and review of laboratory results Abnormal [facility] Hematocrit (Bld) [Volume fraction] 33.6 % Low 40.0 - 52.0 % [facility] Interpretation and review of laboratory results Abnormal [facility] Laboratory - Chemistry and C hemistry - challengeon 08-20-2023 Magnesium [Mass/Vol] 2.2 mg/dL 1.6 - 2 .3 mg/dL [facility] Laboratory - Hematology and Cell countson 08-20-2023 Hemoglobin (Bld) [Mass/Vol] 11.1 g/dL Low 13.0 - 18.0 g/dL [facility] Hemoglobin (Bld) [Mass/Vol] 11.6 g/dL Low 13.0 - 18.0 g/dL [facility] Anisocytosis Ql (Bld) Rare Abnormal (none) [facility] Band form neutrophils (Bld) [#/Vol] 0.2 10*3/uL High NINF - 0.0 10*3/uL [facility] Band form neutrophils/100 WBC (Bld) 4 % High NINF - 0 % [facility] Basophils (Bld) [#/Vol] 0.1 10*3/uL 0.0 - 0.2 10*3/uL [facility] Basophils/100 WBC (Bld) 1 % 0 - 2 % [facility] [place] cells LM Ql (Bld) Rare Abnormal (none) [facility] Dacrocytes LM Ql (Bld) Rare Abnormal (none) [facility] Eosinophils (Bld) [#/Vol] 0.2 10*3/uL 0.0 - 0.5 10*3/uL [facility] Eosinophils/100 WBC (Bld) 4 % 0 - 6 % [facility] Lymphocytes (Bld) [#/Vol] 1.6 10*3/uL 1.0 - 4.3 10*3/uL [facility] Lymphocytes/100 WBC (Bld) 29 % 15 - 45 % [facility] Monocytes (Bld) [#/Vol] 0.4 10*3/uL 0.0 - 0.9 10*3/uL [facility] Monocytes/100 WBC (Bld) 7 % 5 - 13 % [facility] Neutrophils (Bld) [#/Vol] 3.1 10*3/uL 1.8 - 7.5 10*3/uL [facility] Ovalocytes LM Ql (Bld) Rare Abnormal (none) [facility] Poikilocytosis LM Ql (Bld) Rare Abnormal (none) [facility] RBC morphology finding Nom (Bld) abnormal [facility] Segmented neutrophils/100 WBC (Bld) 53 % 38 - 82 % [facility] Target cells LM Ql (Bld) Rare Abnormal (none) [facility] Variant lymphocytes (Bld) [#/Vol] 0.1 10*3/uL High NINF - 0.0 10*3/uL [facility] Variant lymphocytes/100 WBC (Bld) 2 % High NINF - 0 % [facility] MAGNESIUMon 08-20-2023 Magnesium [Mass/Vol] 2.2 mg/dL Normal 1.6-2.3 [facility] Comment on above: Performed By: #### L AB103, LAB15 ####Automotive Title Clerk: ABRAN HANEY ([id number])[facility] (SBAB)[address] MANUAL DIFFERENTIAL (CELLAVI PANCHO)on 08-20-2023 ANISOCYTOSIS PRESENCE IN BLOOD BY LIGHT MICROSCOPY Rare Abnormal (none) [facility] Comment on above: Performed By: #### L [id number], [id number] ####Automotive Title Clerk: ABRAN HANEY ([id number])[facility] [place] (SBAB)[address] BAND NEUTROPHILS TOTAL PER COUNTED LEUKOCYTES BY MANUAL COUNT 4 Normal [facility] Comment on above: Performed By: #### L [id number], [id number] ####Automotive Title Clerk: ABRAN HANEY ([phone])[facility] [place] (SBAB)[address] BANDS (10*3/UL) IN BLOOD-CELLAVISION 0.2 10*3/uL High <=0.0 [facility] Comment on above: Performed By: #### L [id number], [id number] ####Automotive Title Clerk: ABRAN HANEY ([id number])[facility] [place] (SBAB)[address] BASOPHILS (10*3/UL) IN BLOOD-CELLAVISION 0.1 10*3/uL Normal 0.0-0.2 [facility] Comment on above: Performed By: #### L [id number], [id number] ####Automotive Title Clerk: ABRAN HANEY ([id number])[facility] [place] (SBHLAB)[address] [place] [address] [place] BASOPHILS TOTAL PER COUNTED LEUKOCYTES BY MANUAL COUNT 1 Normal [facility] Comment on above: Performed By: #### L [id number], [id number] ####Automotive Title Clerk: ABRAN SAMPSONQUIANA ([id number])[facility] (SBHLAB)[address] [place] [address] [place] BASOPHILS/100 LEUKOCYTES IN BLOOD-CELLAVISION 1 % Normal 0-2 [facility] Comment on above: Performed By: #### L [id number], [id number] ####Automotive Title Clerk: ABRAN FRENCHJHONNY ([id number])[facility] (SBHLAB)[address] [place] [address] [place] BLASTS TOTAL PER COUNTED LEUKOCYTES BY MANUAL COUNT Normal [facility] Comment on above: Performed By: #### L [id number], [id number] ####Automotive Title Clerk: ABRAN HANEY ([id number])[facility] [place] (SBHLAB)[address] [place] [address] [place] JOHNNY CELLS PRESENCE IN BLOOD BY LIGHT MICROSCOPY Rare Abnormal (none) [facility] Comment on above: Performed By: #### L [id number], [id number] ####Automotive Title Clerk: ABRAN HANEY ([id number])[facility] [place] (SB[facility])[address] [place] [address] [place] DACROCYTES PRESENCE IN BLOOD BY LIGHT MICROSCOPY Rare Abnormal (none) [facility] Comment on above: Performed By: #### L [id number], [id number] ####Automotive Title Clerk: ABRAN HANEY ([id number])[facility] (SBHLAB)[address] [place] [address] [place] EOSINOPHILS (10*3/UL) IN BLOOD-CELLAVISION 0.2 10*3/uL Normal 0.0-0.5 [facility] Comment on above: Performed By: #### L [id number], [id number] ####Automotive Title Clerk: ABRAN HANEY ([id number])[facility] (SBHLAB)[address] [place] [address] [place] EOSINOPHILS TOTAL PER COUNTED LEUKOCYTES BY MANUAL COUNT 4 High 0-1 [facility] Comment on above: Performed By: #### L [id number], [id number] ####Automotive Title Clerk: ABRAN HANEY ([id number])[facility] (SBHLAB)[address] [place] [address] [place] EOSINOPHILS/100 LEUKOCYTES IN BLOOD-CELLAVISION 4 % Normal 0-6 [facility] Comment on above: Performed By: #### L [id number], [id number] ####Automotive Title Clerk: ABRAN HANEY ([id number])[facility] (SBHLAB)[address] [place] [address] [place] LYMPHOCYTE VARIANT/100 LEUKOCYTES IN BLOOD- CELLAVISION 2 % High <=0 [facility] Comment on above: Performed By: #### L [id number], [id number] ####Automotive Title Clerk: ABRAN HANEY ([id number])[facility] (SB[facility]AB)[address] [place] [address] [place] LYMPHOCYTES (10*3/UL) IN BLOOD-CELLAVISION 1.6 10*3/uL Normal 1.0-4.3 [facility] Comment on above: Performed By: #### L [id number], [id number] ####Automotive Title Clerk: ABRAN HANEY ([id number])[facility] ([facility])[address] [place] [address] [place] LYMPHOCYTES TOTAL PER COUNTED LEUKOCYTES BY MANUAL COUNT 29 Normal [facility] Comment on above: Performed By: #### L [id number], [id number] ####Automotive Title Clerk: ABRAN HANEY ([id number])[facility] (SBHLAB)[address] [place] [address] [place] LYMPHOCYTES/100 LEUKOCYTES IN BLOOD-CELLAVISION 29 % Normal 15-45 [facility] Comment on above: Performed By: #### L [id number], [id number] ####Automotive Title Clerk: ABRAN HANEY ([id number])[facility] [place] ([facility])[address] [place] [address] [place] METAMYELOCYTES TOTAL PER COUNTED LEUKOCYTES BY MANUAL COUNT Normal [facility] Comment on above: Performed By: #### L [id number], [id number] ####Automotive Title Clerk: ABRAN HANEY ([id number])[facility] [place] ([facility])[address] [place] [address] [place] MONOCYTES (10*3/UL) IN BLOOD-CELLAVISION 0.4 10*3/uL Normal 0.0-0.9 [facility] Comment on above: Performed By: #### L [id number], [id number] ####Automotive Title Clerk: ABRAN HANEY ([id number])[facility] [place] (SB[facility])[address] [place] [address] [place] MONOCYTES TOTAL PER COUNTED LEUKOCYTES BY MANUAL COUNT 7 Normal [facility] Comment on above: Performed By: #### L [id number], [id number] ####Automotive Title Clerk: ABRAN HANEY ([id number])[facility] [place] ([facility])[address] [place] [address] [place] MONOCYTES/100 LEUKOCYTES IN BLOOD-ARVIND 7 % Normal 10-10 [facility] Comment on above: Performed By: #### L [id number], [id number] ####Automotive Title Clerk: ABRAN HANEY ([id number])[facility] [place] ([facility])[address] [place] [address] [place] MYELOCYTES COUNTED BY MANUAL COUNT Normal [facility] Comment on above: Performed By: #### L [id number], [id number] ####Automotive Title Clerk: ABRAN HANEY ([id number])[facility] [place] ([facility])[address] [place] [address] [place] NEUTROPHILS BAND FORM/100 LEUKOCYTES IN BLOOD-CELLAVISI 4 % High <=0 [facility] Comment on above: Performed By: #### L [id number], [id number] ####Automotive Title Clerk: ABRAN FRENCHJHONNY ([id number])[facility] [place] (SB[facility])[address] [place] [address] [place] NEUTROPHILS TOTAL PER COUNTED LEUKOCYTES BY MANUAL COUNT 52 Normal [facility] Comment on above: Performed By: #### L [id number], [id number] ####Automotive Title Clerk: ABRAN FRENCHJHONNY ([id number])[facility] [place] ([facility])[address] [place] [address] [place] OVALOCYTES PRESENCE IN BLOOD BY LIGHT MICROSCOPY Rare Abnormal (none) [facility] Comment on above: Performed By: #### L [id number], [id number] ####Automotive Title Clerk: ABRAN FRENCHJHONNY ([phone])[facility] (SBHLAB)[address] [place] [address] [place] POIKILOCYTOSIS (PRESENCE) IN BLOOD BY LIGHT MICROSCOPY Rare Abnormal (none) [facility] Comment on above: Performed By: #### L [id number], [id number] ####Automotive Title Clerk: ABRAN FRENCHJHONNY ([id number])[facility] [place] ([facility])[address] [place] [address] [place] PROMYELOCYTES TOTAL PER COUNTED LEUKOCYTES BY MANUAL COUNT Normal [facility] Comment on above: Performed By: #### L [id number], [id number] ####Automotive Title Clerk: ABRAN FRENCHJHONNY ([id number])[facility] (SBHLAB)[address] [place] [address] [place] RBC MORPHOLOGY IN BLOOD abnormal Normal [facility] Comment on above: Performed By: #### L [id number], [id number] ####Automotive Title Clerk: ABRAN FRENCHJHONNY ([id number])[facility] [place] (SB[facility])[address] [place] [address] [place] SEGMENTED NEUTROPHILS (10*3/UL) IN BLOOD-CELLAVISION 3.1 10*3/uL Normal 1.8-7.5 [facility] Comment on above: Performed By: #### L [id number], [id number] ####Automotive Title Clerk: ABRAN HANEY ([id number])[facility] (SBHLAB)[address] SEGMENTED NEUTROPHILS/100 LEUKOCYTES-CE 53 % Normal 38-82 [facility] Comment on above: Performed By: #### L [id number], [id number] ####Automotive Title Clerk: ABRAN HANEY ([id number])[facility] (SBHLAB)[address] TARGET CELLS IN BLOOD BY LIGHT MICROSCOPY Rare Abnormal (none) [facility] Comment on above: Performed By: #### L [id number], [id number] ####Automotive Title Clerk: ABRAN SAMPSONQUIANA ([id number])[facility] (SBHLAB)[address] UNCLASSIFIED CELLS TOTAL PER COUNTED LEUKOCYTES BY MANUAL COUNT Normal [facility] Comment on above: Performed By: #### L [id number], [id number] ####Automotive Title Clerk: ABRAN HANEY ([id number])[facility] (SBAB)[address] VARIANT LYMPHOCYTES (10*3/UL) IN BLOOD-CELLAVISION 0.1 10*3/uL High <=0.0 [facility] Comment on above: Performed By: #### L [id number], [id number] ####Automotive Title Clerk: ABRAN HANEY ([id number])[facility] (SB[facility])[address] VARIANT LYMPHOCYTES TOTAL PER COUNTED LEUKOCYTES BY MANUAL COUNT 2 Normal [facility] Comment on above: Performed By: #### L [id number], [id number] ####Automotive Title Clerk: ABRAN HANEY ([id number])[facility] (SBHLAB)[address] Magnesium [Mass/Vol]on 08-19 Interpretation and review of laboratory results Normal [facility] Panel InformationOrdered By: Franklin Causey on 08-20-2023 Left CFV Rfx 0.8 s [facility] nPario Work Phone: No Panel Informationon 08-19 No evidence of deep vein or superficial vein thrombosis in the right lower extremity. Vessels demonstrate normal compressibility, color filling, and phasic and spontaneous flow. No evidence of deep vein or superficial vein thrombosis in the left lower extremity. Vessels demonstrate normal compressibility, color filling, and phasic and spontaneous flow. Right Lower Venous No evidence of deep vein or superficial vein thrombosis. The common femoral, saphenofemoral junction, femoral, popliteal, gastrocnemius, soleal, greater saphenous, posterior tibial, and peroneal veins were imaged in the transverse view and showed normal compressibility. The common femoral, middle femoral, and popliteal veins were imaged in the longitudinal view and showed normal color filling and normal phasic and spontaneous flow. Soleal Vein: Not visualized. Limited visualization right pop fossa due to patient cooperation. Left Lower Venous No evidence of deep vein or superficial vein thrombosis. The common femoral, saphenofemoral junction, femoral, popliteal, gastrocnemius, soleal, greater saphenous, posterior tibial, and peroneal veins were imaged in the transverse view and showed normal compressibility. The common femoral, middle femoral, and popliteal veins were imaged in the longitudinal view and showed normal color filling and normal phasic and spontaneous flow. Soleal Vein: Not visualized. Development Educator Details A mcpherson scale, color Doppler imaging, spectral Doppler analysis and B-flow ultrasound was performed. During the study longitudinal and transverse views were obtained. Pulsed wave doppler was performed. The exam was performed with the patient in the supine position. Overall the study quality was adequate. Study was technically difficult due to: bedside exam. CV CPACS Atypical Lymphocytes Manual 2 [facility] Bands Manual 4 [facility] Basophils Manual 1 [facility] Blasts Manual [facility] Eosinophils Manual 4 High 0 - 1 [facility] Lymphocytes Manual 29 [facility] Metamyelocytes Manual [facility] Monocytes Manual 7 [facility] Myelocytes Manual [facility] Neutrophils Manual 52 [facility] Promyelocytes Manual [facility] Unclassified Cells, Manual [facility] No Panel InformationOrdered By: Elliot Mclean on 08-20-2023 Interpretation and review of laboratory results Abnormal [facility] Progress Noteon 08-20-2023 Progress Note Spoke with patient's sister Clari. Update given. Normal [facility] BASIC METABOLIC PANELon 03-2 Anion gap [Moles/Vol] 7 mmol/L Normal 3-13 [facility] Comment on above: Performed By: #### L AB15, LAB20, LAB99 ####Automotive Title Clerk: TUNDE INMAN ([id number])[facility] BO[place]D RITTMAN (SWRLAB)[address] Calcium [Mass/Vol] 9.0 mg/dL Normal 8.4-10.4 [facility] Comment on above: Performed By: #### L AB15, LAB20, LAB99 ####Automotive Title Clerk: TUNDE INMAN ([id number])[facility] CERRATOOLIVER RITTMAN (SWRLAB)[address] [place] [address] Chloride [Moles/Vol] 94 mmol/L Low 98-107 [facility] Comment on above: Performed By: #### Naresh AB15, LAB20, LAB99 ####Automotive Title Clerk: TUNDE INMAN ([id number])[facility] [place]AT[place] RITTMAN (SWRLAB)[address] [place] [address] [place] CO2 [Moles/Vol] 31 mmol/L High 22-30 [facility] Comment on above: Performed By: #### L AB15, LAB20, LAB99 ####Automotive Title Clerk: TUNDE INMAN ([id number])[facility] BOYD RITTMAN (SWRLAB)[address] [place] [address] [place] Creatinine [Mass/Vol] 1.00 mg/dL Normal 0.66-1.25 [facility] Comment on above: Performed By: #### L AB15, LAB20, LAB99 ####Automotive Title Clerk: TUNDE INMAN ([id number])[facility] BO[place] RIT[place] (SWRLAB)[address] [place] [address] [place] GLOMERULAR FILTRATION RATE ML/MIN/1.73 SQ M.PREDICTED 89.4 mL/min/1.73m*2 Normal >60.0 [facility] Comment on above: Result Comment: Calc ulation based on the Chronic Kidney Disease Epidemiology Collaboration (CKD-EPI) equation refit without adjustment for race Performed By: #### L AB15, LAB20, LAB99 ####Automotive Title Clerk: TUNDE INMAN ([id number])[facility] [place] (SWRLAB)[address] Glucose [Mass/Vol] 100 mg/dL Normal 70-100 [facility] Comment on above: Performed By: #### L AB15, LAB20, LAB99 ####Automotive Title Clerk: TUNDE INMAN ([id number])[facility] [place] (SWRLAB)[address] Potassium [Moles/Vol] 3.5 mmol/L Normal 3.5-5.1 [facility] Comment on above: Performed By: #### L AB15, LAB20, LAB99 ####Automotive Title Clerk: TUNDE INMAN ([id number])[facility] [place] (SWRLAB)[address] Sodium [Moles/Vol] 132 mmol/L Low 135-145 [facility] Comment on above: Performed By: #### L AB15, LAB20, LAB99 ####Automotive Title Clerk: TUNDE INMAN ([id number])[facility] [place] (SWRLAB)[address] Urea nitrogen [Mass/Vol] 13 mg/dL Normal 9-20 [facility] Comment on above: Performed By: #### L AB15, LAB20, LAB99 ####Automotive Title Clerk: TUNDE INMAN ([id number])[facility] [place] (SWRLAB)[address] Basic metabolic 1998 panelon 08-19-2023 Anion gap [Moles/Vol] 7 mmol/L 3 - 13 mmol/L [facility] Calcium [Mass/Vol] 9.0 mg/dL 8.4 - 10. 4 mg/dL [facility] Chloride [Moles/Vol] 94 mmol/L Low 98 - 10 7 mmol/L [facility] CO2 [Moles/Vol] 31 mmol/L High 22 - 30 mmol/L [facility] Creatinine [Mass/Vol] 1.00 mg/dL 0.66 - 1.25 mg/dL [facility] GFR/1.73 sq M.predicted MDRD (S/P/Bld) [Vol rate/Area] 89.4 mL/min/{1.73_m2} - PINF [facility] Comment on above: Calculation based on the Chronic Kidney Disease Epidemiology Collaboration (CKD-EPI) equation refit without adjustment for race Glucose [Mass/Vol] 100 mg/dL 70 - 100 mg/dL [facility] Potassium [Moles/Vol] 3.5 mmol/L 3.5 - 5.1 mmol/L [facility] Sodium [Moles/Vol] 132 mmol/L Low 135 - 145 mmol/L [facility] Urea nitrogen [Mass/Vol] 13 mg/dL 9 - 20 mg/dL [facility] CARECOORDon 08-19-2023 [facility] Care Managment Initi sd Assessment Date: 08/19/2023 Patient Name: Kari Allan : 1970 Patient Information Source of Information: Patient Cognition/Language: WFL - Within Functional Limits Permission given to speak with patient metals sales representative/caregiver as indicated: Yes (Karo Sanford (Sister) [phone]) Confirmation of Payer with patient/family: Yes Payer Name: [place] Medicaid : No Confirmation of Primary Care Physician: Confirmed PCP Name: Antonella marrero Seen in last 2 years?: Yes Primary Caregiver: Other (Comment) (F staff) If assistance needed, confirmed caregiver ready, willing and able to care for patient at discharge: Confirmed with: Living Arrangements Current Residence: Number of Floors Number of Entry Steps: Bed/Bath Levels: Facility: Snf/Residental Care Facility Name: [facility] Plan to Return: Yes Lives with: Support Systems: Family members Activities of Daily Living Ambulation: Independent Bathing/Dressing: Assistance Elimination/Continence/Toil eting: Independent Feeding: Independent Who Assists with Activities of Daily Living: ECF staff Instrumental Activities of Daily Living Prescription Coverage: Yes Pharmacy Used: whoever [facility] uses Medication Management: Assistance Type: Dose packaging system Who assists with medication securing and setup?: ECF staff Transportation/Shopping: Assistance Provider Transportation/Shopping Assistance Provider Name: [facility] family Transportation Mode: Car, Senior/disability transport service Needs Assistance with Transportation at Discharge: No (SW will arrange transportation back to [facility]) Meal Preparation: Assistance Provider Meal Prep Assistance Provider Name: EC staff Laundry/Cleaning: Assistance Provider Laundry/Cleaning Assistance Provider Name: EC staff Finances/Bill Paying: Assistance Provider Finances/Bill Payer Assistance Provider Name: [facility] staff Communication: Independent Types of Care Services/Equipment Utilized Care Services: Dialysis Type: NA Durable Medical Equipment: Other (Comment) (patient states none) Patient's Goal/Discharge Plan Patient expects to be discharged to: [facility] Discharge Planning Actions: Continue to follow Patient's Choice Rights and [employer] and Collaborative Relationships Disclosed as Indicated for Post-Acute Care: Interdisciplinary Team Engagement: Social Work Referral for: Additional Information: Spoke with patient at bedside. Introduced self and role. Discharge planning needs discussed. Patient in hospital due to upper GI bleed. Was having abdominal pine, coffee ground emesis an dark stools so was sent to ED. Occult stool was positive. Has some abnormal labs. GI consulted. Lives at [facility]. Task sent to [facility] via Careport to place return referral to above facility. Patient will return when medically stable. TCC will continue to follow. Neyda Sifuentes RN Normal [facility] CBC W Auto Differential pane l (Bld)Ordered By: Billy Daily on 08-19-2023 Basophils (Bld) [#/Vol] 0.0 10*3/uL 0.0 - 0.2 10*3/uL [facility] Basophils/100 WBC (Bld) 0.4 % 0.0 - 2.0 % [facility] Eosinophils (Bld) [#/Vol] 0.2 10*3/uL 0.0 - 0.5 10*3/uL [facility] Eosinophils/100 WBC (Bld) 2.6 % 0.0 - 6.0 % [facility] Erythrocyte distribution width (RBC) [Ratio] 13.2 % 11.5 - 15.0 % [facility] Hematocrit (Bld) [Volume fraction] 35.8 % Low 40.0 - 52.0 % [facility] Hemoglobin (Bld) [Mass/Vol] 12.4 g/dL Low 13.0 - 18.0 g/dL [facility] Immature granulocytes (Bld) [#/Vol] 0.0 10*3/uL NINF - 0.1 10*3/uL [facility] Immature granulocytes/100 WBC (Bld) 0.3 % 0.0 - 2.0 % [facility] Interpretation and review of laboratory results Abnormal [facility] Lymphocytes (Bld) [#/Vol] 2.2 10*3/uL 1.0 - 4.3 10*3/uL [facility] Lymphocytes/100 WBC (Bld) 29.4 % 15.0 - 45.0 % [facility] MCH (RBC) [Entitic mass] 30.6 pg 26.0 - 34.0 pg [facility] MCHC (RBC) [Mass/Vol] 34.6 % 30.5 - 36.0 % [facility] MCV (RBC) [Entitic vol] 88.4 fL 77.0 - 99.0 fL [facility] Monocytes (Bld) [#/Vol] 0.8 10*3/uL 0.0 - 0.9 10*3/uL [facility] Monocytes/100 WBC (Bld) 11.1 % 5.0 - 13.0 % [facility] Neutrophils (Bld) [#/Vol] 4.2 10*3/uL 1.8 - 7.5 10*3/uL [facility] Neutrophils/100 WBC (Bld) 56.2 % 38.0 - 82.0 % [facility] Nucleated RBC/100 WBC (Bld) [Ratio] 0.0 % [facility] Platelet mean volume (Bld) [Entitic vol] 8.5 fL Low 9.0 - 12.7 fL [facility] Comment on above: MPV is a calculated measurement using platelet volume ratio Platelets (Bld) [#/Vol] 167 10*3/uL 140 - 440 10*3/uL [facility] RBC (Bld) [#/Vol] 4.05 10*6/uL Low 4.40 - 5.90 10*6/uL [facility] WBC (Bld) [#/Vol] 7.4 10*3/uL 3.6 - 10.7 10*3/uL [facility] CBC WITH AUTO DIFFERENTIALon 08-19-2023 Basophils (Bld) [#/Vol] 0.0 10*3/uL Normal 0.0-0.2 [facility] Comment on above: Performed By: #### L [id number] ####Automotive Title Clerk: TUNDE INMAN ([id number])[facility] [place]ERRATO[place]IVER RITTMAN (SWRLAB)[address] [place] [address] [place] Basophils/100 WBC (Bld) 0.4 % Normal 0.0-2.0 [facility] Comment on above: Performed By: #### L [id number] ####Automotive Title Clerk: TUNDE INMAN ([id number])[facility]ITAL[facility] OLIVER RITTMAN (SWRLAB)[address] [place] [address] Eosinophils (Bld) [#/Vol] 0.2 10*3/uL Normal 0.0-0.5 [facility] Comment on above: Performed By: #### L [id number] ####Automotive Title Clerk: TUNDE INMAN ([id number])[facility] OLIVER RITTMAN (SWRLAB)[address] [place] [address] Eosinophils/100 WBC (Bld) 2.6 % Normal 0.0-6.0 [facility] Comment on above: Performed By: #### L [id number] ####Automotive Title Clerk: TUNDE INMAN ([id number])[facility] OLIVER RITTMAN (SWRLAB)[address] [place] [address] Erythrocyte distribution width (RBC) [Ratio] 13.2 % Normal 11.5-15.0 [facility] Comment on above: Performed By: #### L [id number] ####Automotive Title Clerk: TUNDE INMAN ([id number])[facility] BO[place] R[place] (SWRLAB)[address] [place] [address] Hematocrit (Bld) [Volume fraction] 35.8 % Low 40.0-52.0 [facility] Comment on above: Performed By: #### L [id number] ####Automotive Title Clerk: TUNDE INMAN ([id number])[facility] [place] R[place] (SWRLAB)[address] [place] [address] Hemoglobin (Bld) [Mass/Vol] 12.4 g/dL Low 13.0-18.0 [facility] Comment on above: Performed By: #### L [id number] ####Automotive Title Clerk: TUNDE INMAN ([id number])[facility] [place] (SWRLAB)[address] [place] [address] IMMATURE GRANS % 0.3 % Normal 0.0-2.0 [facility] Comment on above: Performed By: #### L [id number] ####Automotive Title Clerk: TUNDE INMAN ([id number])[facility] [place] (SWRLAB)[address] [place] [address] IMMATURE GRANS ABSOLUTE 0.0 10*3/uL Normal <0.1 [facility] Comment on above: Performed By: #### L [id number] ####Automotive Title Clerk: TUNDE INMAN ([id number])[facility] [place] (SWRLAB)[address] [place] [address] [place] Lymphocytes (Bld) [#/Vol] 2.2 10*3/uL Normal 1.0-4.3 [facility] Comment on above: Performed By: #### L [id number] ####Automotive Title Clerk: TUNDE INMAN ([id number])[facility] [place] R[place] (SWRLAB)[address] [place] [address] [place] Lymphocytes/100 WBC (Bld) 29.4 % Normal 15.0-45.0 [facility] Comment on above: Performed By: #### L [id number] ####Automotive Title Clerk: TUNDE INMAN ([id number])[facility] [place] R[place] (SWRLAB)[address] [place] [address] MCH (RBC) [Entitic mass] 30.6 pg Normal 26.0-34.0 [facility] Comment on above: Performed By: #### L [id number] ####Automotive Title Clerk: TUNDE INMAN ([id number])[facility] BOY[place] RIT[place]AN (SWRLAB)[address] [place] [address] MCHC 34.6 % Normal 30.5-36.0 [facility] Comment on above: Performed By: #### L [id number] ####Automotive Title Clerk: TUNDE INMAN ([id number])[facility] BO[place] R[place] (SWRLAB)[address] [place] [address] MCV (RBC) [Entitic vol] 88.4 fL Normal 77.0-99.0 [facility] Comment on above: Performed By: #### L [id number] ####Automotive Title Clerk: TUNDE INMAN ([id number])[facility] [place] (SWRLAB)[address] [place] [address] Monocytes (Bld) [#/Vol] 0.8 10*3/uL Normal 0.0-0.9 [facility] Comment on above: Performed By: #### L [id number] ####Automotive Title Clerk: TUNDE INMAN ([id number])[facility] [place] (SWRLAB)[address] [place] [address] Monocytes/100 WBC (Bld) 11.1 % Normal 5.0-13.0 [facility] Comment on above: Performed By: #### L [id number] ####Automotive Title Clerk: TUNDE INMAN ([id number])[facility] [place] (SWRLAB)[address] [place] [address] NEUTROPHILS ABSOLUTE 4.2 10*3/uL Normal 1.8-7.5 [facility] Comment on above: Performed By: #### L [id number] ####Automotive Title Clerk: TUNDE INMAN ([id number])[facility] [place] (SWRLAB)[address] [place] [address] Neutrophils/100 WBC (Bld) 56.2 % Normal 38.0-82.0 [facility] Comment on above: Performed By: #### L [id number] ####Automotive Title Clerk: TUNDE INMAN ([id number])[facility] [place] (SWRLAB)[address] [place] [address] NRBC 0.0 /100 WBCs Normal 0.0-2.0 [facility] Comment on above: Performed By: #### L [id number] ####Automotive Title Clerk: TUNDE INMAN ([id number])[facility] BO[place] R[place] (SWRLAB)[address] [place] [address] Platelet mean volume (Bld) [Entitic vol] 8.5 fL Low 9.0-12.7 [facility] Comment on above: Result Comment: MPV is a calculated measurement using platelet volume ratio Performed By: #### L [id number] ####Automotive Title Clerk: TUNDE INMAN ([id number])[facility] BO[place] R[place] (SWRLAB)[address] [place] [address] [place] Platelets (Bld) [#/Vol] 167 10*3/uL Normal 140-440 [facility] Comment on above: Performed By: #### L [id number] ####Automotive Title Clerk: TUNDE INMAN ([id number])[facility] [place] (SWRLAB)[address] [place] [address] [place] RBC (Bld) [#/Vol] 4.05 10*6/uL Low 4.40-5.90 [facility] Comment on above: Performed By: #### L [id number] ####Automotive Title Clerk: TUNDE INMAN ([id number])[facility] [place] (SWRLAB)[address] [place] [address] [place] WBC (Bld) [#/Vol] 7.4 10*3/uL Normal 3.6-10.7 [facility] Comment on above: Performed By: #### L [id number] ####Automotive Title Clerk: TUNDE INMAN ([id number])[facility] ([facility])[address] ED Nursing Noteon 08-19-2023 ED Nursing Note Report given to BEN Senior on 2E. Lynda Savage RN 08/19/23 0544 Normal [facility] ED Nursing Note Kari Allan, lazaro e 52, came to ED7 by squad for abdominal pain. Pt stated he is having black stools and pt also stated it feels like it just won't come out. Squad [facility] and was recently at [facility]. Pt is A0x 2. Pt has hx of anoxic brain injury, encephalitis and ETOH abuse. Vitals obtained. 20G IV placed in left AC. Physician at bedside. Normal [facility] ED Provider Noteon ED Provider Note EMERGENCY DEPARTMENT ENCOUNTER Pt Name: Kari Allan Birthdate 1970 Date of evaluation: 08/19/2023 ED Provider: James Maravilla MD CHIEF COMPLAINT Chief Complaint Patient presents with Abdominal Pain HISTORY OF PRESENT ILLNESS (Location/Symptom, Timing/Onset, Context/Setting, Quality, Duration, Modifying Factors, Severity) Note limiting factors. I wore appropriate PPE for the entirety of this encounter. HPI Kari Allan is a 52 y.o. who presents to the emergency department with a chief complaint of abdominal pain and right leg pain with reported coffee-ground emesis and dark stools. Patient brought in by EMS. Patient currently lives at [facility]. History of alcohol abuse with anoxic brain injury. Patient is on Eliquis for an history of embolism. Denies any chest pain or shortness of breath. Denies lower back pain. Denies fever or chills. Patient was evaluated at [facility] emergency department for right hip pain and abdominal pain 3 days ago. Patient had a right hip x-ray with no acute fracture or dislocation with degenerative changes. CT abdomen reportedly was negative for acute abdominal pelvic process. Patient has hepatic steatosis. Reported fluid in the distal esophagus. Patient was evaluated at [facility] 2 days ago for abdominal pain and dark emesis. Patient had a CT abdomen and pelvis performed at that time that was negative for acute intra-abdominal or pelvic process. Patient reportedly has a fatty liver and a small hiatal hernia. Patient is on pantoprazole. Discussed patient with nursing facility staff and sister for further history. Nursing Notes were reviewed. Limitations to history: history of anoxic brain injury Outside historians: Family sister, EMS, and nurse at [facility] REVIEW OF SYSTEMS Review of Systems Respiratory: Negative for shortness of breath. Cardiovascular: Negative for chest pain. Gastrointestinal: Positive for abdominal pain, nausea and vomiting. Coffee-ground emesis and melena stool per nursing facility staff Musculoskeletal: Negative for back pain. Right leg pain Hematological: On Eliquis Pertinent positives and negatives as per HPI PAST MEDICAL HISTORY Past Medical History: Diagnosis Date Alcohol abuse with intoxication (HCC) Anemia Anoxic brain damage (CMS/HCC) (HCC) Anxiety Asthma Convulsion (HCC) COPD (chronic obstructive pulmonary disease) (HCC) Depression DVT (deep venous thrombosis) (HCC) Dysphagia Encephalopathy GERD (gastroesophageal reflux disease) Hepatitis Hypertension Impulse control disorder Insomnia, unspecified Need for assistance with personal care Opioid abuse (HCC) Other symbolic dysfunctions Pancreatitis Psychosis (HCC) PTSD (post-traumatic stress disorder) Solitary lung nodule SURGICAL HISTORY Past Surgical History: Procedure Laterality Date APPENDECTOMY BACK SURGERY 5 vertabrae fused CHOLECYSTECTOMY COLONOSCOPY 2014 CT CHEST ANGIOGRAM W AND/OR WO IV CONTRAST 04/08/2022 CT CHEST ANGIOGRAM W AND/OR WO IV CONTRAST 04/08/2022 [facility] IMAGING CYST REMOVAL wrist GASTROSTOMY TUBE PLACEMENT 03/01/2017 UPPER GASTROINTESTINAL ENDOSCOPY 02/16/2017 CURRENT MEDICATIONS Previous Medications ACETAMINOPHEN (TYLENOL) 325 MG TABLET Take 2 tablets by mouth every 6 hours as needed for fever, mild pain (1-3) or moderate pain (4-6). ALBUTEROL SULFATE 108 (90 BASE) MCG/ACT AEROSOL POWDER Inhale 1 puff every 2 hours as needed. APIXABAN (ELIQUIS) 5 MG TABLET Take 5 mg by mouth in the morning and 5 mg before bedtime. BACLOFEN (LIORESAL) 10 MG TABLET Take 10 mg by mouth 3 times daily. BISACODYL (DULCOLAX) 10 MG SUPPOSITORY Insert 10 mg into the rectum Daily as needed for constipation. BISACODYL (DULCOLAX) 5 MG EC TABLET Take 5 mg by mouth Daily as needed. DIVALPROEX SPRINKLE (DEPAKOTE SPRINKLE) [address] CAPSULE Take 500 mg by mouth 3 times daily. ESCITALOPRAM (LEXAPRO) 10 MG TABLET Take 1.5 tablets by mouth daily. FOLIC ACID (FOLVITE) 1 MG TABLET daily. GUAIFENESIN (HUMIBID 3) 400 MG TABLET Take 400 mg by mouth every 8 hours as needed for congestion. IPRATROPIUM-ALBUTEROL (DUO-NEB) 0.5-2.5 MG/3 ML NEBULIZER SOLUTION Inhale 3 mL every 6 hours as needed. LEVETIRACETAM (KEPPRA) 750 MG TABLET Take 1 tablet by mouth in the morning and 1 tablet before bedtime. MAGNESIUM HYDROXIDE (MILK OF MAGNESIA) 400 MG/5ML SUSPENSION Take 30 mL by mouth Daily as needed. MELATONIN 3 MG TABLET 3 mg Nightly as needed. MENTHOL, TOPICAL ANALGESIC, (BIOFREEZE ROLL-ON) 4 % GEL Apply topically every 8 hours as needed. NALTREXONE (DEPADE) 50 MG TABLET Take 50 mg by mouth in the morning. NIRMATRELVIR&RITONAVIR 300/100 (PAXLOVID, 300/100,) 20 X 150 MG & 10 X 100MG TABLET THERAPY PACK Take 3 tablets by mouth in the morning and 3 tablets in the evening. PANTOPRAZOLE (PROTONIX) 40 MG EC TABLET 40 mg 2 times daily. P (more content not included)... Normal [facility] HEPATIC FUNCTION PANELon Albumin [Mass/Vol] 3.7 g/dL Normal 3.5-5.0 [facility] Comment on above: Performed By: #### L AB15, LAB20, LAB99 ####Automotive Title Clerk: TUNDE INMAN ([id number])[facility] ([facility])[address] ALP [Catalytic activity/Vol] 86 U/L Normal 38-126 [facility] Comment on above: Performed By: #### L AB15, LAB20, LAB99 ####Automotive Title Clerk: TUNDE INMAN ([id number])[facility])[address] ALT [Catalytic activity/Vol] 55 U/L High 0-49 [facility] Comment on above: Performed By: #### L AB15, LAB20, LAB99 ####Automotive Title Clerk: TUNDE INMAN ([id number])[facility] [place] (SWRLAB)[address] [place] [address] AST [Catalytic activity/Vol] 76 U/L High 15-46 [facility] Comment on above: Performed By: #### L AB15, LAB20, LAB99 ####Automotive Title Clerk: TUNDE INMAN ([id number])[facility] [place] (SWRLAB)[address] [place] [address] Bilirubin [Mass/Vol] 0.6 mg/dL Normal 0.2-1.3 [facility] Comment on above: Performed By: #### L AB15, LAB20, LAB99 ####Automotive Title Clerk: TUNDE INMAN ([id number])[facility] [place] (SWRLAB)[address] [place] [address] Bilirubin.indirect [Mass/Vol] 0.0 mg/dL Normal 0.0-0.3 [facility] Comment on above: Performed By: #### L AB15, LAB20, LAB99 ####Automotive Title Clerk: TUNDE INMAN ([id number])[facility] [place] (SWRLAB)[address] [place] [address] Protein [Mass/Vol] 7.0 g/dL Normal 6.3-8.2 [facility] Comment on above: Performed By: #### L AB15, LAB20, LAB99 ####Automotive Title Clerk: TUNDE INMAN ([id number])[facility] [place] (SWRLAB)[address] [place] [address] Hepatic function 2000 panelo n 08-19-2023 Albumin [Mass/Vol] 3.7 g/dL 3.5 - 5.0 g/dL [facility] ALP [Catalytic activity/Vol] 86 U/L 38 - 126 U/L [facility] ALT [Catalytic activity/Vol] 55 U/L High 0 - 49 U/L [facility] AST [Catalytic activity/Vol] 76 U/L High 15 - 46 U/L [facility] Bilirubin [Mass/Vol] 0.6 mg/dL 0.2 - 1 .3 mg/dL [facility] Bilirubin.conjugated [Mass/Vol] 0.0 mg/dL 0.0 - 0.3 mg/dL [facility] Protein [Mass/Vol] 7.0 g/dL 6.3 - 8.2 g/dL [facility] IDNon 08-19-2023 IDN The patient is Moder ately Stable - Low risk of patient condition declining or worsening The patient's goals for the shift include rest The clinical goals for the shift include orientation to new surroundings Over the shift, the patient did not make progress toward the following goals. Barriers to progression include continued c/o pain to right calf. Recommendations to address these barriers include monitor.. Problem: Pain - Adult Goal: Verbalizes/displays adequate comfort level or baseline comfort level Outcome: Not Progressing Problem: Discharge Planning Goal: Discharge to home or other facility with appropriate resources Outcome: Not Progressing Normal [facility] IDN Called to bedside to assess pt r/t pt's weakened gait. Upon assessment VS stable, A+Ox1 pt complains of pain in abd and right leg. Lungs clear VICKY, No strength or sensation deficits. Pt has mild tremor BUE. Pt is poor historian. Reviewed med list and spoke with Za CONTRERAS. Pt to remain at current level of care. Normal [facility] LIPASEon 08-19-2023 Lipase [Catalytic activity/Vol] 31 U/L Normal 23-300 [facility] Comment on above: Performed By: #### L AB15, LAB20, LAB99 ####Automotive Title Clerk: TUNDE INMAN ([id number])[facility]ENTEROLIV[facility]ANH WEL[facility] (SWRLAB)[address] [place] [address] Laboratory - Chemistry and C hemistry - challengeon 08-19-2023 Glucose [Mass/Vol] 110 mg/dL High 70 - 100 mg/dL [facility] Lipase [Catalytic activity/Vol] 31 U/L 23 - 300 U/L [facility] Laboratory - Coagulationon 0 08-19-2023 PT Coag (Bld) [Time] 10.4 s 9.0 - 1 2.0 s [facility] Lipase [Catalytic activity/V ol]on 08-19-2023 Interpretation and review of laboratory results Normal [facility] Lower GI hemoglobin spec 1 I A Ql (Stl)on 08-19-2023 Fecal occult blood Positive Abnormal Negative [facility] Interpretation and review of laboratory results Abnormal [facility] Methodology: Immunoassay [facility] No Panel Informationon 08-18 Interpretation and review of laboratory results Abnormal [facility] Performed by: [facility], [address] [place] [address] CLIA ID: [id number] [facility] James Maravilla MD 08/19/2023 3:[address] [facility] SPECIFIC POCUS ORDER Performed by: James Maravilla MD Authorized by: James Maravilla MD Type of Exam: DVT Indications for Ultrasound: Right leg pain Credentialed Provider Attestation: Are you an Ultrasound Credentialed Provider?: Yes Does PoC US immage meet quality guidelines?: Adequate Is PoC US Chargeable?: $Charge$ Signed: James Maravilla Procedure details: Indications: Lower extremity pain Assessment for: DVT Findings: Right common femoral vein: Compressible Right deep and superficial femoral veins: Compressible Right popliteal vein: Compressible Impression: DVT: None [facility] Interpretation and review of laboratory results Abnormal [facility] Radiology Study observation (narrative) [facility] Radiology Study observation (narrative) [facility] OCCULT BLOOD, STOOLon 2023 OCCULT BLOOD, STOOL FECAL OCCULT, STOOL (A) Reference Positive Negative ORDER COMMENTS: (A) Methodology: Immunoassay Normal [facility] Comment on above: Performed By: #### L AB694 ####Automotive Title Clerk: TUNDE INMAN ([id number])[facility]ENTER[facility]IV[facility]ANH WELCH ([address] PROTHROMBIN TIMEon INR Coag (PPP) [Relative time] 1.0 {INR} Normal 0.9-1.1 [facility] Comment on above: Result Comment: Tony mmended Anticoagulant Therapy: SEE BELOW ----- INR of 2.0 - 3.0 : - Prophylaxis of Venous Thrombosis (high-risk surgery) - Treatment of Venous Thrombosis - Treatment of Pulmonary Embolism (Includes tissue heart valves, Acute Myocardial Infarction to prevent systemic embolism, Valvular Heart Disease, and Atrial Fibrillation) ----- INR of 2.5 - 3.5 : - Mechanical Prosthetic Valves (high risk) - If oral anticoagulant therapy is used to prevent Myocardial Infarction Performed By: #### L AB320 ####Automotive Title Clerk: TUNDE INMAN ([id number])[facility] REBEK[facility] (SWRLAB)[address] [place] [address] PT Coag (PPP) [Time] 10.4 s Normal 9.0-12.0 [facility] Comment on above: Performed By: #### L AB320 ####Automotive Title Clerk: TUNDE INMAN ([id number])[facility]ILMA (SWRLAB)[address] [place] [address] PT Coag (Bld) [Time]on 08-18 INR Coag (PPP) [Relative time] 1.0 {INR} 0.9 - 1.1 [facility] Comment on above: Recommended Anticoag ulant Therapy: SEE BELOW ----- INR of 2.0 - 3.0 : - Prophylaxis of Venous Thrombosis (high-risk surgery) - Treatment of Venous Thrombosis - Treatment of Pulmonary Embolism (Includes tissue heart valves, Acute Myocardial Infarction to prevent systemic embolism, Valvular Heart Disease, and Atrial Fibrillation) ----- INR of 2.5 - 3.5 : - Mechanical Prosthetic Valves (high risk) - If oral anticoagulant therapy is used to prevent Myocardial Infarction Interpretation and review of laboratory results Normal [facility] Progress Noteon 08-19-2023 Progress Note Spoke with patient's sister Clari. Clari states that the patient has been at the [facility] in [place] for 8 years, following a seizure lasting an hour and a half. Per Clari, patient was not able to walk or talk for approximately a year after having the seizure. Clari states that the patient uses a standard wheelchair at the [facility], and will only ambulate very short distances d/t frequent falls. Will communicate this information to Dr. Dean. Normal [facility] Progress Note This nurse assisted patient to the bathroom, noting an increase in tremors, unsteadiness, and agitation/anxiety. CIWA completed per nursing judgement. Dr. Dean notified, and Rapid Response nurse Donovan called to assess patient. Will continue to monitor. Progress Note [facility] CARE PLANNI GIL Allan : 1970 Primary Care Physician: Antonella Marrero The patient and/or family/surrogate voluntarily agreed to participate in ACP services. Patient?s cognitive capacity: poor, does NOT know place (said [facility]), cannot tell me year. Able to answer simple questions. Code Status: [_] [FULL CODE - Continue all advanced life support: CPR,intubation,invasive procedures] [X] [DNR-CCA - DO NOT do CPR, no intubation] [_] [DNR-CHASSIS ENGINEER - Comfort care only] [_] DNR form [was/was not] signed Summary of discussion: The patient court appointed legal Guardian is the following: Karo (sister). [Condition that instigated the ACP on this DOS, relevant PMH, functional status, goals of care, and whom this was discussed with including names and relationship to the patient, and any relevant advance care documentation discussion] I answered all the patient/family questions that I could within the range and scope of the current medical situation. We discussed the medical conditions, risks, benefits, outcomes, and goals of care at this time for the patient's medical issues at hand in the face of the patient's chronic issues and current presentation. Total time spent: 6 minutes were spent discussing the patient's resuscitation status, advance care planning, and end of life care, with patient and/or family/surrogate. CHANTELLE DEAN MD Acute care [facility] 08/19/2023, 1:21 PM Progress Note Patient complaining of increased abdomen pain with black stools, and leg pain, with increased drop of hemoglobin with 2 recent ED visits. Has a history of alcoholism, anoxic brain injury, Hgb dropped from each visit. Transfer to [place] for observation and consult. Latoya Gonzalez MD Division of Hospitalist Medicine [facility] ALLIED HEALTHon 08-17-2023 ALLIED HEALTH HNO ID: [id number] Author: ROSA PRESCOTT RT(R) Service: Radiology Author Type: Technologist Type: Allied Health Filed: 08/17/2023 15:59 Note Text: Radiology Service Progress Note PATIENT NAME: Kari Allan DATE OF SERVICE: August 17, 2023 TIME: 3:59 PM PATIENT IDENTITY VERIFICATION COMPLETED USING TWO (2) IDENTIFIERS: Name and Date of confirmed by patient verbally and Name and Date of confirmed by identification band. FALL SCREENING: Has the patient had 2 falls in the last year or 1 fall with injury or currently using an Ambulatory Assistive Device (Walker, Cane, Wheelchair, Crutches, etc.)? Emergency Room Patient: Screened in ED PATIENT GENDER DATA: Male PATIENT RELEVANT IMPLANT DATA REVIEWED: Not Applicable PATIENT PRESENTS WITH AN IMPLANTABLE OR ATTACHED RETURN TO SERVICE INSPECTOR: No RADIOLOGY DEPARTMENT: CT; Exam(s) Completed: Brain PERIPHERAL IV DATA: Not applicable SIGNED BY: RT Corey(R) August 17, 2023 3:59 PM Normal [facility] CBC W Auto Differential pane l (Bld)on 08-17-2023 Basophils (Bld) [#/Vol] 0.03 10*3/uL Normal <0.11 [facility] Comment on above: Order Comment: Speci men Type: BLOOD SPECIMEN Ordering Facility: [facility] Address: [address] [place] [address] Performed By: #### 5 7021-8 #### [facility] CLIA [id number] [address] [place] [address] [place] Basophils/100 WBC (Bld) 0.4 % Normal [facility] Comment on above: Order Comment: Speci men Type: BLOOD SPECIMEN Ordering Facility: [facility] Address: [address] [place] [address] Performed By: #### 5 7021-8 #### [facility] CLIA [id number] 1 [place] [address] [place] Differential cell count method Nom (Bld) Auto Normal [facility] Comment on above: Order Comment: Speci men Type: BLOOD SPECIMEN Ordering Facility: [facility] Address: [address] [place] [address] Performed By: #### 5 7021-8 #### [facility] CLIA [id number] 1 [place] [address] [place] Eosinophils (Bld) [#/Vol] 10*3/uL Normal <0.46 [facility] Comment on above: Order Comment: Speci men Type: BLOOD SPECIMEN Ordering Facility: [facility] Address: [address] [place] [address] Performed By: #### 5 7021-8 #### [facility] CLIA [id number] [address] Eosinophils/100 WBC (Bld) 0.1 % Normal [facility] Comment on above: Order Comment: Speci men Type: BLOOD SPECIMEN Ordering Facility: [facility] Address: [address] [place] [address] Performed By: #### 5 7021-8 #### [facility] CLIA [id number] [address] [place] Erythrocyte distribution width (RBC) [Ratio] 13.3 % Normal 11.5-15.0 [facility] Comment on above: Order Comment: Speci men Type: BLOOD SPECIMEN Ordering Facility: [facility] Address: [address] [place] [address] Performed By: #### 5 7021-8 #### [facility] CLIA [id number] [address] STATES OF [facility] Hematocrit (Bld) [Volume fraction] 40.0 % Normal 39.0-51.0 [facility] Comment on above: Order Comment: Speci men Type: BLOOD SPECIMEN Ordering Facility: [facility] Address: [address] [place] [address] Performed By: #### 5 7021-8 #### [facility] CLIA [id number] [address] [place] Hemoglobin (Bld) [Mass/Vol] 13.6 g/dL Normal 13.0-17.0 [facility] Comment on above: Order Comment: Speci men Type: BLOOD SPECIMEN Ordering Facility: [facility] Address: [address] [place] [address] Performed By: #### 5 7021-8 #### [facility] CLIA [id number] [address] Immature granulocytes (Bld) [#/Vol] 0.03 10*3/uL Normal <0.10 [facility] Comment on above: Order Comment: Speci men Type: BLOOD SPECIMEN Ordering Facility: [facility] Address: [address] [place] [address] Performed By: #### 5 7021-8 #### [facility] CLIA [id number] [address] Immature granulocytes/100 WBC (Bld) 0.4 % Normal [facility] Comment on above: Order Comment: Speci men Type: BLOOD SPECIMEN Ordering Facility: [facility] Address: [address] [place] [address] Performed By: #### 5 7021-8 #### [facility] CLIA [id number] [address] Lymphocytes (Bld) [#/Vol] 1.98 10*3/uL Normal 1.00-4.00 [facility] Comment on above: Order Comment: Speci men Type: BLOOD SPECIMEN Ordering Facility: [facility] Address: [address] [place] [address] Performed By: #### 5 7021-8 #### [facility] CLIA [id number] [address] Lymphocytes/100 WBC (Bld) 25.7 % Normal [facility] Comment on above: Order Comment: Speci men Type: BLOOD SPECIMEN Ordering Facility: [facility] Address: [address] [place] [address] Performed By: #### 5 7021-8 #### [facility] CLIA [id number] [address] [place] MCH (RBC) [Entitic mass] 30.9 pg Normal 26.0-34.0 [facility] Comment on above: Order Comment: Speci men Type: BLOOD SPECIMEN Ordering Facility: [facility] Address: [address] [place] [address] Performed By: #### 5 7021-8 #### [facility] CLIA [id number] [address] MCHC (RBC) [Mass/Vol] 34.0 g/dL Normal 30.5-36.0 [facility] Comment on above: Order Comment: Speci men Type: BLOOD SPECIMEN Ordering Facility: [facility] Address: [address] [place] [address] Performed By: #### 5 7021-8 #### [facility] CLIA [id number] [address] MCV (RBC) [Entitic vol] 90.9 fL Normal 80.0-100.0 [facility] Comment on above: Order Comment: Speci men Type: BLOOD SPECIMEN Ordering Facility: [facility] Address: [address] [place] [address] Performed By: #### 5 7021-8 #### [facility] CLIA [id number] [address] Monocytes (Bld) [#/Vol] 1.04 10*3/uL High <0.87 [facility] Comment on above: Order Comment: Speci men Type: BLOOD SPECIMEN Ordering Facility: [facility] Address: [address] [place] [address] Performed By: #### 5 7021-8 #### [facility] CLIA [id number] [address] Monocytes/100 WBC (Bld) 13.5 % Normal [facility] Comment on above: Order Comment: Speci men Type: BLOOD SPECIMEN Ordering Facility: [facility] Address: [address] [place] [address] Performed By: #### 5 7021-8 #### [facility] CLIA [id number] [address] [place] Neutrophils (Bld) [#/Vol] 4.62 10*3/uL Normal 1.45-7.50 [facility] Comment on above: Order Comment: Speci men Type: BLOOD SPECIMEN Ordering Facility: [facility] Address: [address] [place] [address] Performed By: #### 5 7021-8 #### [facility] CLIA [id number] [address] Neutrophils/100 WBC (Bld) 59.9 % Normal [facility] Comment on above: Order Comment: Speci men Type: BLOOD SPECIMEN Ordering Facility: [facility] Address: [address] [place] [address] Performed By: #### 5 7021-8 #### [facility] CLIA [id number] [address] OF [place] Nucleated RBC (Bld) [#/Vol] 10*3/uL Normal <0.01 [facility] Comment on above: Order Comment: Speci men Type: BLOOD SPECIMEN Ordering Facility: [facility] Address: [address] [place] [address] Performed By: #### 5 7021-8 #### [facility] CLIA [id number] [address] STATES OF [facility] Nucleated RBC/100 WBC (Bld) [Ratio] 0.0 /100 WBC Normal [facility] Comment on above: Order Comment: Speci men Type: BLOOD SPECIMEN Ordering Facility: [facility] Address: [address] [place] [address] Performed By: #### 5 7021-8 #### [facility] CLIA [id number] [address] [place] Platelet mean volume (Bld) [Entitic vol] 9.1 fL Normal 9.0-12.7 [facility] Comment on above: Order Comment: Speci men Type: BLOOD SPECIMEN Ordering Facility: [facility] Address: [address] [place] [address] Performed By: #### 5 7021-8 #### [facility] CLIA [id number] [address] [place] Platelets (Bld) [#/Vol] 167 10*3/uL Normal 150-400 [facility] Comment on above: Order Comment: Speci men Type: BLOOD SPECIMEN Ordering Facility: [facility] Address: [address] [place] [address] Performed By: #### 5 7021-8 #### [facility] CLIA [id number] [address] OF [facility] RBC (Bld) [#/Vol] 4.40 10*6/uL Normal 4.20-6.00 [facility] Comment on above: Order Comment: Speci men Type: BLOOD SPECIMEN Ordering Facility: [facility] Address: [address] [place] [address] Performed By: #### 5 7021-8 #### [facility] CLIA [id number] [address] WBC (Bld) [#/Vol] 7.71 10*3/uL Normal 3.70-11.00 [facility] Comment on above: Order Comment: Speci men Type: BLOOD SPECIMEN Ordering Facility: [facility] Address: [address] [place] [address] Performed By: #### 5 7021-8 #### [facility] CLIA [id number] [address] ABD/PEL W IVCONon 024 CT ABD/PEL W IVCON * * *Final Report* * * DATE OF EXAM: Aug 17 2023 4:40PM [facility] 0530 - CT ABD/PEL W IVCON / PROCEDURE REASON: Nausea/vomiting * * * * Physician Interpretation * * * * EXAMINATION: CT ABD/PEL W IVCON CLINICAL HISTORY: Nausea/vomiting TECHNIQUE: CT of the abdomen and pelvis was performed using standard technique, scanning from just above the dome of the diaphragm to the symphysis pubis. Contrast: IV: 100 ml of Omnipaque 350 : ml of Dose-Length Product (DLP): 1393 mGy*cm CT Dose Reduction Employed: mAs-kVp adjusted based on patient size-age COMPARISON: 09/24/2019 RESULT: Lower thorax: Minimal bibasilar atelectasis. Liver: No mass. Mild fatty liver. Biliary: Normal caliber postcholecystectomy biliary tree. Spleen: No mass. No splenomegaly. Pancreas: No mass or ductal dilatation. Adrenal glands: Unremarkable. Kidneys: Stable 1.5 cm left renal cyst with some peripheral calcification and cortical thinning. No solid, enhancing mass or hydronephrosis in either kidney. Vascular: Normal caliber abdominal aorta . GI tract: Small sliding hiatal hernia. No dilation or wall thickening. The appendix is not visualized and likely surgically absent. Minimal scattered colonic diverticulosis without evidence of acute diverticulitis. Pelvis: No mass, fluid or collection. Unremarkable urinary bladder Lymph nodes: No abdominal or pelvic lymphadenopathy, by size criteria. Mesentery/Peritoneum/Retrop eritoneum: No ascites, pneumoperitoneum or suspicious mass. Soft Tissues/Bones: Interval development of an age-indeterminate L1 superior endplate deformity with less than 25% loss of vertebral body height. Stable posterior fusion hardware and interbody spacers in the lower lumbar spine and upper sacral spine (there are 6 nonrib-bearing lumbar type vertebral bodies). No acute body wall finding.. IMPRESSION: No acute intra-abdominal/pelvic abnormality. Interval development of mild age-indeterminate L1 superior endplate deformity. Favor chronic although recommend clinical correlation to determine acuity. Fatty liver. Small hiatal hernia. Cycle Manager: PSCB Transcribe Date/Time: Aug 17 2023 4:45P Dictated by : CHELSI OLIVAS MD This examination was interpreted and the report reviewed and electronically signed by: CHELSI OLIVAS MD on Aug 17 2023 4:52PM EST [id number] Normal [facility] CT BRAIN WO IVCONon 08-17-19 CT BRAIN WO IVCON * * *Final Report* * * DATE OF EXAM: Aug 17 2023 4:00PM [facility] 0504 - CT BRAIN WO IVCON / PROCEDURE REASON: Mental status change, unknown cause * * * * Physician Interpretation * * * * EXAMINATION: CT BRAIN WO IVCON CLINICAL HISTORY: Mental status change, unknown cause TECHNIQUE: Serial axial images without IV contrast were obtained from the vertex to the foramen magnum. MQ: [id number] CT Radiation dose: Integrated Dose-Length Product (DLP) for this visit = 755 mGy*cm CT Dose Reduction Employed: Iterative recon COMPARISON: CT brain 11/04/2018 RESULT: Contact Worker (topogram) images: No additional findings. Post-operative change: None. Acute change: No evidence of an acute infarct or other acute parenchymal process. Hemorrhage: No evidence of acute intracranial hemorrhage. ECASS hemorrhagic transformation score: Not Applicable Mass Lesion / Mass Effect: There is no evidence of an intracranial mass or extraaxial fluid collection. No significant mass effect. Chronic change: Scattered patchy foci of low attenuation are present within supratentorial white matter which is a nonspecific finding but likely represents mild microvascular ischemia. Parenchyma: There is moderate generalized volume loss. The brain parenchyma is otherwise within normal limits for age. Ventricles: Ventricular enlargement concordant with the degree of parenchymal volume loss. Paranasal sinuses and skull base: The visualized paranasal sinuses are grossly clear. The skull base and imaged soft tissues are unremarkable. IMPRESSION: No acute intracranial findings. Chronic changes as described. Cycle Manager: JENNY Transcribe Date/Time: Aug 17 2023 4:20P Dictated by : KACI MICHEL MD This examination was interpreted and the report reviewed and electronically signed by: KACI MICHEL MD on Aug 17 2023 4:23PM EST [id number] Normal [facility] Comprehensive metabolic 2000 panelon 08-17-2023 Albumin [Mass/Vol] 3.7 g/dL Low 3.9-4.9 [facility] Comment on above: Order Comment: Speci men Type: BLOOD SPECIMEN Ordering Facility: [facility] Address: [address] [place] [address] Performed By: #### 3 040-3, 32831-4, #### [facility] CLIA [id number] [address] STATES [place] [facility] ALP [Catalytic activity/Vol] 86 U/L Normal 38-113 [facility] Comment on above: Order Comment: Speci men Type: BLOOD SPECIMEN Ordering Facility: [facility] Address: [address] [place] [address] Performed By: #### 3 040-3, 25149-5, #### [facility] CLIA [id number] [address] [place] ALT With P-5'-P [Catalytic activity/Vol] 32 U/L Normal 10-54 [facility] Comment on above: Order Comment: Speci men Type: BLOOD SPECIMEN Ordering Facility: [facility] Address: [address] [place] [address] Performed By: #### 3 040-3, , #### [facility] CLIA [id number] [address] [place] Anion gap [Moles/Vol] 11 mmol/L Normal 9-18 [facility] Comment on above: Order Comment: Speci men Type: BLOOD SPECIMEN Ordering Facility: [facility] Address: [address] [place] [address] Performed By: #### 3 040-3, , #### [facility] CLIA [id number] [address] [place] [address] [place] AST With P-5'-P [Catalytic activity/Vol] 33 U/L Normal 14-40 [facility] Comment on above: Order Comment: Speci men Type: BLOOD SPECIMEN Ordering Facility: [facility] Address: [address] [place] [address] Performed By: #### 3 040-3, , #### [facility] CLIA [id number] [address] [place] Bilirubin [Mass/Vol] 0.5 mg/dL Normal 0.2-1.3 [facility] Comment on above: Order Comment: Speci men Type: BLOOD SPECIMEN Ordering Facility: [facility] Address: [address] [place] [address] Performed By: #### 3 040-3, , #### [facility] CLIA [id number] [address] [place] Calcium [Mass/Vol] 9.3 mg/dL Normal 8.5-10.2 [facility] Comment on above: Order Comment: Speci men Type: BLOOD SPECIMEN Ordering Facility: [facility] Address: [address] [place] [address] Performed By: #### 3 040-3, 76119-4, #### [facility] CLIA [id number] [address] [place] [address] [place] Chloride [Moles/Vol] 97 mmol/L Normal 97-105 [facility] Comment on above: Order Comment: Speci men Type: BLOOD SPECIMEN Ordering Facility: [facility] Address: [address] [place] [address] Performed By: #### 3 040-3, 49234-6, #### [facility] CLIA [id number] [address] [place] CO2 [Moles/Vol] 30 mmol/L Normal 22-30 [facility] Comment on above: Order Comment: Speci men Type: BLOOD SPECIMEN Ordering Facility: [facility] Address: [address] [place] [address] Performed By: #### 3 040-3, 48933-5, #### [facility] CLIA [id number] [address] OF [facility] Creatinine [Mass/Vol] 1.07 mg/dL Normal 0.73-1.22 [facility] Comment on above: Order Comment: Speci men Type: BLOOD SPECIMEN Ordering Facility: [facility] Address: [address] [place] [address] Performed By: #### 3 040-3, 89914-4, #### [facility] [facility] CLIA [id number] [address] Creatinine and Glomerular filtration rate.predicted panel (S/P/Bld) 82 mL/min/1.73m??? Normal >=60 [facility] Comment on above: Order Comment: Speci men Type: BLOOD SPECIMEN Ordering Facility: [facility] Address: [address] [place] [address] Result Comment: Jacquie mated Glomerular Filtration Rate (eGFR) is calculated using the 2020 CKD-EPI creatinine equation. This equation utilizes serum creatinine, sex, and age as parameters. The creatinine assay has traceable calibration to isotope dilution-mass spectrometry. Refer to KDIGO guidelines for clinical interpretation. In patients with unstable renal function, e.g. those with acute kidney injury, the eGFR may not accurately reflect actual GFR. Performed By: #### 3 040-3, , #### [facility] CLIA [id number] 1 [place] [address] [place] Glucose [Mass/Vol] 103 mg/dL High 74-99 [facility] Comment on above: Order Comment: Speci men Type: BLOOD SPECIMEN Ordering Facility: [facility] Address: [address] [place] [address] Result Comment: The [place] Diabetes Association (ADA) provides guidance for cutoff values for fasting glucose and random glucose. The ADA defines fasting as no caloric intake for at least 8 hours. Fasting plasma glucose results between 100 to 125 mg/dL indicate increased risk for diabetes (prediabetes). Fasting plasma glucose results greater than or equal to 126 mg/dL meet the criteria for diagnosis of diabetes. In the absence of unequivocal hyperglycemia, results should be confirmed by repeat testing. In a patient with classic symptoms of hyperglycemia or hyperglycemic crisis, random plasma glucose results greater than or equal to 200 mg/dL meet the criteria for diagnosis of diabetes. Reference: Standards of Medical Care in Diabetes 2016, [place] [employer] Association. Diabetes Care. 2016.39(Suppl 1). Performed By: #### 3 040-3, , #### [facility] CLIA [id number] 1 [place] [address] [place] Potassium [Moles/Vol] 3.7 mmol/L Normal 3.7-5.1 [facility] Comment on above: Order Comment: Matthewi men Type: BLOOD SPECIMEN Ordering Facility: [facility] Address: [address] [place] [address] Performed By: #### 3 040-3, , #### [facility] CLIA [id number] 1 [place] [id number] [place] Protein [Mass/Vol] 6.9 g/dL Normal 6.3-8.0 [facility] Comment on above: Order Comment: Speci men Type: BLOOD SPECIMEN Ordering Facility: [facility] Address: [address] [place] [id number] Performed By: #### 3 040-3, 77275-1, #### [facility] CLIA [id number] [address] Sodium [Moles/Vol] 138 mmol/L Normal 136-144 [facility] Comment on above: Order Comment: Speci men Type: BLOOD SPECIMEN Ordering Facility: [facility] Address: [address] [place] [address] Performed By: #### 3 040-3, 50658-0, #### [facility] CLIA [id number] [address] [place] Urea nitrogen [Mass/Vol] 17 mg/dL Normal 9-24 [facility] Comment on above: Order Comment: Speci men Type: BLOOD SPECIMEN Ordering Facility: [facility] Address: [address] [place] [address] Performed By: #### 3 040-3, 52090-6, #### [facility] CLIA [id number] [address] OF [facility] ECG COMPLETEon 08-17-2023 ECG COMPLETE Ventricular Rate : 1 12 BPM Atrial Rate : 112 BPM P-R Interval : 136 ms QRS Duration : 82 ms Q-T Interval : 308 ms QTC Calculation(Bazett) : 420 ms Calculated P [place] : 36 degrees Calculated R [place] : 121 degrees Calculated T [place] : 31 degrees SINUS TACHYCARDIA LEFT POSTERIOR FASCICULAR BLOCK CANNOT RULE OUT ANTERIOR INFARCT , AGE UNDETERMINED ABNORMAL ECG NO PREVIOUS ECGS AVAILABLE Confirmed by MD MUNIZ AMY ([id number]) on 02/14/2024 3:23:40 AM NAME : KARI ALLAN PID : [id number] : 1970 Gender : Male Race : ORD : [id number] Procedure Date : Aug 17 2023 14:49:20 Edit Date : Feb 14 2024 03:23:41 Diagnosis: SINUS TACHYCARDIA LEFT POSTERIOR FASCICULAR BLOCK CANNOT RULE OUT ANTERIOR INFARCT , AGE UNDETERMINED ABNORMAL ECG NO PREVIOUS ECGS AVAILABLE Confirmed by MD MUNIZ AMY ([id number]) on 02/14/2024 3:23:40 AM Test Reason : Chest Pain Location : 4 : [facility] Overread By : MD MUNIZ AMY Edited By : MD MUNIZ AMY Referred By : , Acquired by : JACKY DUQUE [facility] ED NOTEon 08-17-2023 ED NOTE HNO ID: [id number] Author: ROSA ARIAS RN Service: Emergency Medicine Author Type: Registered Nurse Type: ED Notes Filed: 08/17/2023 19:47 Note Text: [facility] at bedside for transport back to facility. Report given to transport team. [facility] ED NOTE HNO ID: [id number] Author: JAMILA WYNN, BEN Service: Emergency Medicine Author Type: Registered Nurse Type: ED Notes Filed: 08/17/2023 18:34 Note Text: [facility] made aware that pt will be returning to facility and that ride ETA is 90 minutes [facility] ED NOTE HNO ID: [id number] Author: JAMILA WYNN, BEN Service: Emergency Medicine Author Type: Registered Nurse Type: ED Notes Filed: 08/17/2023 18:28 Note Text: [facility] called to transport pt back to [facility], spoke with Bill. Awaiting arrival of [facility]. ETA 90 minutes [facility] ED NOTE HNO ID: [id number] Author: JAMILA WYNN RN Service: Emergency Medicine Author Type: Registered Nurse Type: ED Notes Filed: 08/17/2023 15:34 Note Text: CT made aware that pt is ready for CT. [facility] ED NOTE HNO ID: [id number] Author: BUD MARCIAL RN Service: ? Author Type: Registered Nurse Type: ED Notes Filed: 08/17/2023 13:17 Note Text: Bed: 18-ED Expected date: Expected time: Means of arrival: Comments: SQUAD WHEN CLEAN [facility] ED PROV NOTEon 08-17-2023 ED PROV NOTE HNO ID: [id number] Author: JOHN KERR DO Service: Emergency Medicine Author Type: Resident Type: ED Provider Notes Filed: 08/21/2023 16:54 Note Text: Attestation signed by John Kerr DO at 08/21/2023 4:54 PM (Updated) Attending Physician Attestation Note: Schultz findings confirmed. I saw the patient in coordination with the resident physician. I personally interviewed and examined the patient. I discussed the patient with the resident physician. I reviewed the resident physician's note. I was present for schultz portions of and personally supervised any/all procedures. I personally saw the patient and performed a substantive portion of the visit including all aspects of the medical decision making. I agree with the resident physician's findings and medical decision making unless otherwise documented. Imaging studies did show a likely chronic L1 superior endplate fracture. He has no complaints of back pain and no focal tenderness in this area so I do believe it is likely chronic. He has no neurodeficits in the lower extremities on exam. CT scan of his brain and abdomen pelvis are otherwise negative. Nausea and vomiting controlled. Patient discharged from the Emergency Department. I do not feel that the patient's evaluation reveals any acute reason for admission at this time. I instructed them to either follow up with their primary care physician or promptly return to the Emergency Department for reevaluation should symptoms worsen or new symptoms develop. I explained what symptoms would indicate the need to return to the Emergency Department. Shared decision making was used. The patient voiced understanding of the treatment plan and is agreeable with it. Signature: John Kerr DO Date: 08/21/2023 Time: 4:51 PM ED CONTINUATION OF CARE NOTE Code Status: Prior Assumed care from: Dr. Becker, Presentation / Findings / Interventions / Plan / Items to Follow Up: Patient endorsed to me by Dr. Becker. Patient initially presented due to nausea and vomiting, complaining of pain in his right hip. At the time of signout, repeat CT scan of the abdomen pelvis was in process. Of note did have recent imaging the day prior at outside hospital. This study showed no acute process. His symptoms are otherwise well-controlled ED was able to tolerate p.o. intake. I discussed the patient's guardian who agreed for the patient to be sent back to the facility. Patient was ultimately discharged in stable condition and sent back by ambulance. Patient discharged from the Emergency Department. I do not feel that the patient's evaluation reveals any acute reason for admission at this time. I instructed them to either follow up with their primary care physician or promptly return to the Emergency Department for reevaluation should symptoms worsen or new symptoms develop. I explained what symptoms would indicate the need to return to the Emergency Department. Shared decision making was used. The patient voiced understanding of the treatment plan and is agreeable with it Clinical Impressions as of 08/17/23 2341 Nausea and vomiting, unspecified vomiting type Pain of right hip Medical Decision Making SIGNATURE: Bulmaro Hunter DO PATIENT NAME: Kari Allan DATE: August 17, 2023 TIME: 11:41 PM PAGER/CONTACT #: BULMARO HUNTER 08/18/23 2213 JOHN KERR 08/21/23 1651 JOHN KERR 08/21/23 1654 [facility] ED PROV NOTE HNO ID: [id number] Author: JOHN KERR DO Service: Emergency Medicine Author Type: Resident Type: ED Provider Notes Filed: 08/21/2023 16:53 Note Text: Attestation signed by John Kerr DO at 08/21/2023 4:53 PM Attending Physician Attestation Note: Schultz findings confirmed. I saw the patient in coordination with the resident physician. I personally interviewed and examined the patient. I discussed the patient with the resident physician. I reviewed the resident physician's note. I was present for schultz portions of and personally supervised any/all procedures. I personally saw the patient and performed a substantive portion of the visit including all aspects of the medical decision making. I agree with the resident physician's findings and medical decision making unless otherwise documented. Signature: John Kerr DO Date: 08/21/2023 Time: 4:52 PM ED Provider Note Patient Name: Kari Allan : 1970 SERVICE DATE: 08/17/23 History Patient presents with: Abdominal Pain: Pt arrives by EMS from an extended care facility for L sided groin pain and N/V that he was seen for yesterday at [facility] and discharged with pheneregan after a work up. Pt continues to c/o groin pain and N/V. Fmaily requested that he be seen here. Pt with hx TBI. Pt is AANDOx2 upon arrival, baseline is AANDOx2-3. Pt sts that he has been having abdominal pain with dark emesis for the past 2-3 days. Denies diarrhea. 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 Patient is at a extended care facility. Per the sister, his legal guardian, who also works at this facility was concerned that he has had persistent nausea, vomiting abdominal pain for 4 days. He went to the [facility] ED for the same issue. They did a CT abdomen pelvis with IV contrast, lab work as well as a x-ray of his right hip. The whole workup was unremarkable. They discharged him home with Phenergan. The sister states that today the nausea and vomiting has persisted. He has not had any p.o. intake since 7 AM. And his vomit was darker in color today. She states that nobody else is sick. Also complained of right leg pain. No known injury. History provided by: Patient, medical records and relative PAST MEDICAL HISTORY Diagnosis Date - Acute respiratory failure (HCC) - Alcohol abuse - Alcohol withdrawal with delirium in inpatient treatment ([facility]) 03/15/2016 - Anemia - Anemia - Back pain - C. difficile colitis - COPD (chronic obstructive pulmonary disease) ([facility]) - Drug overdose - DVT (deep venous thrombosis) ([facility]) - Dysphasia - Encephalopathy - ETOH abuse 02/09/2016 - GI bleed 09/24/2019 - Opiate dependence, continuous ([facility]) - Pancreatitis - Pulmonary nodule seen on imaging study - Renal cyst - Seizure ([facility]) - Sepsis ([facility]) - Tobacco abuse - Weakness PAST SURGICAL HISTORY Procedure Laterality Date - APPENDECTOMY HX - BACK SURGERY HX - CHOLECYSTECTOMY HX - COLONOSCOPY 2014 - EGD 02/16/2017 - EGD W/O BRSH SPEC VARICIES INJ 09/25/2019 - GASTROSTOMY/JEJUNOSTOMY TUBE 02/2017 - PICC LINE INSERT/CONSULT 04/04/2017 FAMILY HISTORY Problem Relation Age of Onset - Diabetes Mother - Blood Disease Father - Alcohol/Drug Brother - other (Pancreatitis) Brother Social History Tobacco Use - Smoking status: Every Day Packs/day: 1.00 Years: 30.00 Additional pack years: 0.00 Total pack years: 30.00 Types: Cigarettes - Smokeless tobacco: Never Vaping Use - Vaping Use: Never used Substance and Sexual Activity - Alcohol use: Not Currently Comment: past hx of etoh abuse - Drug use: No - Sexual activity: Never ALLERGIES Allergen Reactions - Haldol [Haloperidol* Unknown Copied from [facility] from [facility] - Paragoric Swelling Review of Systems Constitutional: Negative for activity change, chills, fatigue and fever. HENT: Negative for congestion, rhinorrhea and sore throat. Eyes: Negative for pain and visual disturbance. Respiratory: Negative for cough, shortness of breath and wheezing. Cardiovascular: Negative for chest pain, palpitations and leg swelling. Gastrointestinal: Positive for abdominal pain, nausea and vomiting (X 4 days). Negative for constipation and diarrhea. Genitourinary: Negative for dysuria and hematuria. Musculoskeletal: Negative for arthralgias and myalgias. Skin: Negative for rash and wound. Neurological: Negative for syncope, weakness, light-headedness, numbness and headaches. Psychiatric/Behavioral: Negative for confusion and sleep disturbance. Physical Exam Vitals [08/17/23 1323] BP Pulse Temp Temp src Res (more content not included)... Normal [facility] Lipase SerPl-cCncon 08-17-19 24 Lipase [Catalytic activity/Vol] 9 U/L Low 16-61 [facility] Comment on above: Order Comment: Speci men Type: BLOOD SPECIMEN Ordering Facility: [facility] Address: [address] [place] [address] Performed By: #### 3 040-3, 56920-2, 14392-6 #### [facility] CLIA [id number] [address] OF [facility] Magnesium SerPl-mCncon 08-16 Magnesium [Mass/Vol] 2.0 mg/dL Normal 1.7-2.3 [facility] Comment on above: Order Comment: Speci serafin Type: BLOOD SPECIMEN Ordering Facility: [facility] Address: [address] [place] [address] Performed By: #### 3 040-3, 68801-9, 51021-2 #### [facility] CLIA [id number] [address] [place] CBC W Auto Differential pane l (Bld)on 08-16-2023 Basophils (Bld) [#/Vol] 0.0 10*3/uL 0.0 - 0.2 10*3/uL [facility] Basophils/100 WBC (Bld) 0.3 % 0.0 - 2.0 % [facility] Eosinophils (Bld) [#/Vol] 0.2 10*3/uL 0.0 - 0.5 10*3/uL [facility] Eosinophils/100 WBC (Bld) 1.9 % 0.0 - 6.0 % [facility] Erythrocyte distribution width (RBC) [Ratio] 13.4 % 11.5 - 15.0 % [facility] Hematocrit (Bld) [Volume fraction] 45.0 % 40.0 - 52.0 % [facility] Hemoglobin (Bld) [Mass/Vol] 15.5 g/dL 13.0 - 18.0 g/dL [facility] Immature granulocytes (Bld) [#/Vol] 0.1 10*3/uL High NINF - 0.1 10*3/uL [facility] Health Immature granulocytes/100 WBC (Bld) 0.4 % 0.0 - 2.0 % [facility] Interpretation and review of laboratory results Abnormal [facility] Lymphocytes (Bld) [#/Vol] 1.1 10*3/uL 1.0 - 4.3 10*3/uL [facility] Health Lymphocytes/100 WBC (Bld) 9.9 % Low 15.0 - 45.0 % [facility] MCH (RBC) [Entitic mass] 30.4 pg 26.0 - 34.0 pg [facility] MCHC (RBC) [Mass/Vol] 34.4 % 30.5 - 36.0 % [facility] MCV (RBC) [Entitic vol] 88.2 fL 77.0 - 99.0 fL [facility] Monocytes (Bld) [#/Vol] 1.0 10*3/uL High 0.0 - 0.9 10*3/uL [facility] Health Monocytes/100 WBC (Bld) 8.5 % 5.0 - 13.0 % [facility] Neutrophils (Bld) [#/Vol] 8.8 10*3/uL High 1.8 - 7.5 10*3/uL [facility] Neutrophils/100 WBC (Bld) 79.0 % 38.0 - 82.0 % [facility] Nucleated RBC/100 WBC (Bld) [Ratio] 0.0 % [facility] Platelet mean volume (Bld) [Entitic vol] 9.1 fL 9.0 - 12.7 fL [facility] Platelets (Bld) [#/Vol] 185 10*3/uL 140 - 440 10*3/uL [facility] RBC (Bld) [#/Vol] 5.10 10*6/uL 4.40 - 5.90 10*6/uL [facility] WBC (Bld) [#/Vol] 11.1 10*3/uL High 3.6 - 10.7 10*3/uL [facility] CBC WITH AUTO DIFFERENTIALon 08-16-2023 Basophils (Bld) [#/Vol] 0.0 10*3/uL Normal 0.0-0.2 [facility] Comment on above: Performed By: #### L [id number] ####Automotive Title Clerk: ABRAN SAMPSONQUIANA ([id number])[facility] ([facility])[address] Basophils/100 WBC (Bld) 0.3 % Normal 0.0-2.0 [facility] Comment on above: Performed By: #### L [id number] ####Automotive Title Clerk: ABRAN SAMPSONQUIANA ([id number])[facility] ([facility])[address] Eosinophils (Bld) [#/Vol] 0.2 10*3/uL Normal 0.0-0.5 [facility] Comment on above: Performed By: #### L [id number] ####[employer]otive Title Clerk: ABRAN FRENCHJHONNY ([id number])[facility] ([facility])[address] Eosinophils/100 WBC (Bld) 1.9 % Normal 0.0-6.0 [facility] Comment on above: Performed By: #### L [id number] ####Autom[employer] Title Clerk: ABRAN SAMPSONQUIANA ([id number])[facility] (SBAB)[address] Erythrocyte distribution width (RBC) [Ratio] 13.4 % Normal 11.5-15.0 [facility] Comment on above: Performed By: #### L [id number] ####Automotive Title Clerk: ABRAN SAMPSONQUIANA ([id number])[facility] [place] ([facility])[address] Hematocrit (Bld) [Volume fraction] 45.0 % Normal 40.0-52.0 [facility] Comment on above: Performed By: #### L [id number] ####[employer] Title Clerk: ABRAN SAMPSONQUIANA ([id number])[facility] [place] ([facility])[address] Hemoglobin (Bld) [Mass/Vol] 15.5 g/dL Normal 13.0-18.0 [facility] Comment on above: Performed By: #### L [id number] ####Automotive Title Clerk: ABRAN HANEY ([id number])[facility] [place] ([facility])[address] IMMATURE GRANS % 0.4 % Normal 0.0-2.0 [facility] Comment on above: Performed By: #### L [id number] ####Automotive Title Clerk: ABRAN SAMPSONQUIANA ([id number])[facility] [place] ([facility])[address] IMMATURE GRANS ABSOLUTE 0.1 10*3/uL High <0.1 [facility] Comment on above: Performed By: #### L [id number] ####Automotive Title Clerk: ABRAN SAMPSONQUIANA ([id number])[facility] ([facility])[address] [place] [address] [place] Lymphocytes (Bld) [#/Vol] 1.1 10*3/uL Normal 1.0-4.3 [facility] Comment on above: Performed By: #### L [id number] ####Automotive Title Clerk: ABRAN HANEY ([id number])[facility] ([facility])[address] Lymphocytes/100 WBC (Bld) 9.9 % Low 15.0-45.0 [facility] Comment on above: Performed By: #### L [id number] ####Automotive Title Clerk: ABRAN SAMPSONQUIANA ([id number])[facility] [place] ([facility])[address] MCH (RBC) [Entitic mass] 30.4 pg Normal 26.0-34.0 [facility] Comment on above: Performed By: #### L [id number] ####Automotive Title Clerk: ABRAN HANEY ([id number])[facility] ([facility])[address] MCHC 34.4 % Normal 30.5-36.0 [facility] Comment on above: Performed By: #### L [id number] ####Automotive Title Clerk: ABRAN HANEY ([id number])[facility] ([facility])[address] MCV (RBC) [Entitic vol] 88.2 fL Normal 77.0-99.0 [facility] Comment on above: Performed By: #### L [id number] ####Automotive Title Clerk: ABRAN HANEY ([id number])[facility] ([facility])[address] Monocytes (Bld) [#/Vol] 1.0 10*3/uL High 0.0-0.9 [facility] Comment on above: Performed By: #### L [id number] ####Automotive Title Clerk: ABRAN SAMPSONQUIANA ([id number])[facility] [place] ([facility])[address] Monocytes/100 WBC (Bld) 8.5 % Normal 5.0-13.0 [facility] Comment on above: Performed By: #### L [id number] ####Automotive Title Clerk: ABRAN HANEY ([id number])[facility] [place] ([facility])[address] NEUTROPHILS ABSOLUTE 8.8 10*3/uL High 1.8-7.5 [facility] Comment on above: Performed By: #### L [id number] ####Automotive Title Clerk: ABRAN HANEY ([id number])[facility] [place] ([facility])[address] Neutrophils/100 WBC (Bld) 79.0 % Normal 38.0-82.0 [facility] Comment on above: Performed By: #### L [id number] ####Automotive Title Clerk: ABRAN HANEY ([id number])[facility] [place] ([facility])[address] NRBC 0.0 /100 WBCs Normal 0.0-2.0 [facility] Comment on above: Performed By: #### L [id number] ####Automotive Title Clerk: ABRAN HANEY ([id number])[facility] (SBHLAB)[address] Platelet mean volume (Bld) [Entitic vol] 9.1 fL Normal 9.0-12.7 [facility] Comment on above: Performed By: #### L [id number] ####Automotive Title Clerk: ABRAN HANEY ([id number])[facility] [place] ([facility])[address] Platelets (Bld) [#/Vol] 185 10*3/uL Normal 140-440 [facility] Comment on above: Performed By: #### L [id number] ####Automotive Title Clerk: ABRAN HANEY ([id number])[facility] [place] ([facility])[address] RBC (Bld) [#/Vol] 5.10 10*6/uL Normal 4.40-5.90 [facility] Comment on above: Performed By: #### L [id number] ####Automotive Title Clerk: ABRAN HANEY ([id number])[facility] [place] ([facility])[address] WBC (Bld) [#/Vol] 11.1 10*3/uL High 3.6-10.7 [facility] Comment on above: Performed By: #### L [id number] ####Automotive Title Clerk: ABRAN HANEY ([id number])[facility] [place] ([facility])[address] COMPLETE URINALYSISon 2023 BILIRUBIN, TOTAL PRESENCE IN URINE Negative Normal Negative [facility] Comment on above: Performed By: #### L [id number] ####Automotive Title Clerk: ABRAN HANEY ([id number])[facility] [place] ([facility])[address] Clarity (U) Clear Normal Clear [facility] Comment on above: Performed By: #### L [id number] ####Automotive Title Clerk: ABRAN HANEY ([id number])[facility] ([facility])[address] Color (U) Light Yellow Normal Lt. Yellow [facility] Comment on above: Performed By: #### L [id number] ####Automotive Title Clerk: ABRAN HANEY ([id number])[facility] ([facility])[address] [place] [address] [place] GLUCOSE (MG/DL) IN URINE Normal Normal Normal (<70) [facility] Comment on above: Performed By: #### L [id number] ####Automotive Title Clerk: ABRAN HANEY ([id number])[facility] HEMOGLOBIN PRESENCE IN URINE Negative Normal Negative [facility] Comment on above: Performed By: #### L [id number] ####Automotive Title Clerk: ABRAN HANEY ([id number])[facility] [facility] Ketones Ql (U) Negative Normal Negative [facility] Comment on above: Performed By: #### L [id number] ####Automotive Title Clerk: ABRAN HANEY ([id number])[facility] LEUKOCYTE ESTERASE PRESENCE IN URINE BY TEST STRIP Negative Normal Negative [facility] Comment on above: Performed By: #### L [id number] ####Automotive Title Clerk: ABRAN HANEY ([id number])[facility] (HLAB)155 [place] [address] [place] NITRITE PRESENCE IN URINE Negative Normal Negative [facility] Comment on above: Performed By: #### L AB347 ####Automotive Title Clerk: ABRAN HANEY ([id number])[facility] ([facility])[address] [place] [address] [place] pH (U) 6.5 [pH] Normal 5.0-8.0 [facility] Comment on above: Performed By: #### L AB347 ####Automotive Title Clerk: ABRAN HANEY ([id number])[facility] [place] ([facility]AB)[address] Protein (U) [Mass/Vol] Negative Normal Negative [facility] Comment on above: Performed By: #### L AB347 ####Automotive Title Clerk: ABRAN HANEY ([id number])[facility] ([facility])[address] Specific gravity (U) [Rel density] 1.011 Normal 1.005-1.03 0 [facility] Comment on above: Performed By: #### L [id number] ####Automotive Title Clerk: ABRAN HANEY ([id number])[facility] [place] ([facility])[address] UROBILINOGEN (MG/DL) IN URINE Normal Normal Normal (0-1) [facility] Comment on above: Performed By: #### L AB347 ####Automotive Title Clerk: ABRAN HANEY ([id number])[facility] ([facility])[address] COMPREHENSIVE METABOLIC PANE López 08-16-2023 Albumin [Mass/Vol] 4.4 g/dL Normal 3.5-5.0 [facility] Comment on above: Performed By: #### Naresh AB17, LAB99, [id number] ####Automotive Title Clerk: ABRAN HANEY ([id number])[facility] [place] (SBHLAB)[address] [place] [address] [place] ALP [Catalytic activity/Vol] 108 U/L Normal 38-126 [facility] Comment on above: Performed By: #### L AB17, LAB99, [id number] ####Automotive Title Clerk: ABRAN HANEY ([id number])[facility] ([facility])[address] [place] [address] [place] ALT [Catalytic activity/Vol] 46 U/L Normal 0-49 [facility] Comment on above: Performed By: #### Naresh AB17, LAB99, [id number] ####Automotive Title Clerk: ABRAN HANEY ([id number])[facility] [place] (SB[facility]AB)[address] Anion gap [Moles/Vol] 12 mmol/L Normal 3-13 [facility] Comment on above: Performed By: #### Naresh ABRachel, LAB99, [id number] ####Automotive Title Clerk: ABRAN HANEY ([id number])[facility] [place] (SB[facility])[address] AST [Catalytic activity/Vol] 47 U/L High 15-46 [facility] Comment on above: Performed By: #### Naresh AB17, LAB99, [id number] ####Automotive Title Clerk: ABRAN HANEY ([id number])[facility] [place] ([facility])[address] Bilirubin [Mass/Vol] 0.8 mg/dL Normal 0.2-1.3 [facility] Comment on above: Performed By: #### Naresh HICKEY, LAB99, [id number] ####Automotive Title Clerk: ABRAN HANEY ([id number])[facility] [place] ([facility])[address] Calcium [Mass/Vol] 9.7 mg/dL Normal 8.4-10.4 [facility] Comment on above: Performed By: #### Naresh HICKEY, LAB99, [id number] ####Automotive Title Clerk: ABRAN HANEY ([phone])[facility] [place] ([facility])[address] [place] [address] [place] Chloride [Moles/Vol] 100 mmol/L Normal 98-107 [facility] Comment on above: Performed By: #### Naresh AB17, LAB99, [id number] ####Automotive Title Clerk: ABRAN HANEY ([id number])[facility] [place] ([facility])[address] [place] [address] [place] CO2 [Moles/Vol] 23 mmol/L Normal 22-30 [facility] Comment on above: Performed By: #### L AB17, LAB99, [id number] ####Automotive Title Clerk: ABRAN HANEY ([id number])[facility] [place] (SBHLAB)[address] Creatinine [Mass/Vol] 0.97 mg/dL Normal 0.66-1.25 [facility] Comment on above: Performed By: #### L AB17, LAB99, [id number] ####Automotive Title Clerk: ABRAN HANEY ([id number])[facility] [place] (SBHLAB)[address] GLOMERULAR FILTRATION RATE ML/MIN/1.73 SQ M.PREDICTED >90.0 Normal >60.0 [facility] Comment on above: Result Comment: Calc ulation based on the Chronic Kidney Disease Epidemiology Collaboration (CKD-EPI) equation refit without adjustment for race ORDER COMMENTS: Slightly hemolyzed Performed By: #### Naresh AB17, LAB99, [id number] ####Automotive Title Clerk: ABRAN HANEY ([id number])[facility] [place] ([facility])[address] Glucose [Mass/Vol] 135 mg/dL High 70-100 [facility] Comment on above: Performed By: #### L AB17, LAB99, [id number] ####Automotive Title Clerk: ABRAN HANEY ([id number])[facility] [place] ([facility]AB)[address] Potassium [Moles/Vol] 4.4 mmol/L Normal 3.5-5.1 [facility] Comment on above: Performed By: #### L AB17, LAB99, [id number] ####Automotive Title Clerk: ABRAN HANEY ([id number])[facility] [place] ([facility])[address] Protein [Mass/Vol] 8.2 g/dL Normal 6.3-8.2 [facility] Comment on above: Performed By: #### L AB17, LAB99, [id number] ####Automotive Title Clerk: ABRAN HANEY ([id number])[facility] [place] ([facility])[address] Sodium [Moles/Vol] 135 mmol/L Normal 135-145 [facility] Comment on above: Performed By: #### L AB17, LAB99, [id number] ####Automotive Title Clerk: ABRAN HANEY ([id number])[facility] [place] ([facility])[address] Urea nitrogen [Mass/Vol] 7 mg/dL Low 9-20 [facility] Comment on above: Performed By: #### L AB17, LAB99, [id number] ####Automotive Title Clerk: ABRAN HANEY ([id number])[facility] ([facility])[address] ABDOMEN PELVIS W CONTRAST on 08-16-2023 CT ABDOMEN PELVIS W CONTRAST Patient Name: KARI ALLAN : 1970 Exam Date/Time: 08/16/2023 04:13 Procedure: CT ABDOMEN PELVIS W CONTRAST Ordering Provider: COLINDRES QUENTIN Reason For Exam: Abdominal pain, acute, nonlocalized CT ABDOMEN AND PELVIS WITH CONTRAST CLINICAL INDICATION: Acute nonlocalized abdominal pain TECHNIQUE: Transaxial sequence was performed through the abdomen and pelvis during the intravenous infusion of 75 mL nonionic contrast media . Oral contrast: Not given Dose reduction was employed with automated exposure control. COMPARISON: 05/30/2023 CT FINDINGS: Lung bases: No pleural effusion or focal consolidation. Chest wall: Unremarkable. Liver: The liver is hypoattenuating relative to the spleen, compatible with steatosis. Otherwise the liver is normal in size and contour. No focal hepatic lesions identified. Biliary system: The biliary system is not dilated. Postsurgical changes compatible with cholecystectomy are noted. Spleen: An accessory splenule is identified. Otherwise, the spleen is within normal limits. Pancreas: No significant abnormality. Adrenal glands: No significant abnormality. Kidneys/ Ureter: Symmetric renal enhancement is noted. No evidence of hydroureteronephrosis. No evidence of nephrolithiasis. Stable appearance of hypoattenuating hypoenhancing cystic and calcified structure in the posterior superior pole of the left kidney measuring up to 1.8 cm (series 3 axial image 57). Bladder: The bladder appears unremarkable. Pelvic organs: No masses or other significant abnormalities seen. Bowel: Fluid noted in the esophagus, which may reflect a sequela of reflux. The stomach is unremarkable. The small bowel is of normal caliber throughout without evidence of wall thickening or obstruction. Postsurgical changes compatible with appendectomy are observed. The large bowel is without evidence of dilatation or thickening. Mesentery/Intraperitoneum: No intraperitoneal free fluid or air is seen. Mesentery is normal in appearance. Lymph nodes: No lymphadenopathy Vasculature: Atherosclerotic calcifications are noted throughout the abdominal pelvic vasculature. Otherwise, the abdominal aorta is normal in caliber without evidence of aneurysmal dilatation. The venous vasculature appears grossly unremarkable. Abdominal wall: The abdominal wall soft tissues appear unremarkable. Osseous structures: Postsurgical changes compatible with L5 laminectomy with L4 S1 posterior spinal fusion. Mild anterolisthesis of L5-S1 noted. Mild degenerative changes of the lumbar spine are observed. IMPRESSION: 1. No acute abdominopelvic process identified. 2. Hepatic steatosis, correlate with liver function tests. 3. Stable posterior superior left kidney calcified cystic structure, likely reflecting partially calcified cyst. 4. Fluid in the distal esophagus, correlate with concern for reflux. 5. Other chronic and postsurgical findings as discussed. Report Dictated on Electronically Signed By: Antony Thompson MD Electronically Signed Date/Time: 08/16/2023 5:30 AM EDT Diffuse abd pain, no other complaints Normal [facility] CT Abdomen and Pelvis W cont rast Kandis 08-16-2023 1. No acute abdomino pelvic process identified. 2. Hepatic steatosis, correlate with liver function tests. 3. Stable posterior superior left kidney calcified cystic structure, likely reflecting partially calcified cyst. 4. Fluid in the distal esophagus, correlate with concern for reflux. 5. Other chronic and postsurgical findings as discussed. Report Dictated on Electronically Signed By: Antony Thompson MD Electronically Signed Date/Time: 08/16/2023 5:30 AM EDT [facility] [employer] [facility] Patient Name: KARI MUHAMMAD : 1970 Exam Date/Time: 08/16/2023 04:13 Procedure: CT ABDOMEN PELVIS W CONTRAST Ordering Provider: COLINDRES QUENTIN Reason For Exam: Abdominal pain, acute, nonlocalized CT ABDOMEN AND PELVIS WITH CONTRAST CLINICAL INDICATION: Acute nonlocalized abdominal pain TECHNIQUE: Transaxial sequence was performed through the abdomen and pelvis during the intravenous infusion of 75 mL nonionic contrast media . Oral contrast: Not given Dose reduction was employed with automated exposure control. COMPARISON: 05/30/2023 CT FINDINGS: Lung bases: No pleural effusion or focal consolidation. Chest wall: Unremarkable. Liver: The liver is hypoattenuating relative to the spleen, compatible with steatosis. Otherwise the liver is normal in size and contour. No focal hepatic lesions identified. Biliary system: The biliary system is not dilated. Postsurgical changes compatible with cholecystectomy are noted. Spleen: An accessory splenule is identified. Otherwise, the spleen is within normal limits. Pancreas: No significant abnormality. Adrenal glands: No significant abnormality. Kidneys/ Ureter: Symmetric renal enhancement is noted. No evidence of hydroureteronephrosis. No evidence of nephrolithiasis. Stable appearance of hypoattenuating hypoenhancing cystic and calcified structure in the posterior superior pole of the left kidney measuring up to 1.8 cm (series 3 axial image 57). Bladder: The bladder appears unremarkable. Pelvic organs: No masses or other significant abnormalities seen. Bowel: Fluid noted in the esophagus, which may reflect a sequela of reflux. The stomach is unremarkable. The small bowel is of normal caliber throughout without evidence of wall thickening or obstruction. Postsurgical changes compatible with appendectomy are observed. The large bowel is without evidence of dilatation or thickening. Mesentery/Intraperitoneum: No intraperitoneal free fluid or air is seen. Mesentery is normal in appearance. Lymph nodes: No lymphadenopathy Vasculature: Atherosclerotic calcifications are noted throughout the abdominal pelvic vasculature. Otherwise, the abdominal aorta is normal in caliber without evidence of aneurysmal dilatation. The venous vasculature appears grossly unremarkable. Abdominal wall: The abdominal wall soft tissues appear unremarkable. Osseous structures: Postsurgical changes compatible with L5 laminectomy with L4 S1 posterior spinal fusion. Mild anterolisthesis of L5-S1 noted. Mild degenerative changes of the lumbar spine are observed. [facility] [employer] [facility] Antony Thompson MD - 08/16/2023 [facility] 1970 [id number] Exam Date/Time: 08/16/2023 04:13 Procedure: CT ABDOMEN PELVIS W CONTRAST Ordering Provider: COLINDRES QUENTIN Reason For Exam: Abdominal pain, acute, nonlocalized CT ABDOMEN AND PELVIS WITH CONTRAST CLINICAL INDICATION: Acute nonlocalized abdominal pain TECHNIQUE: Transaxial sequence was performed through the abdomen and pelvis during the intravenous infusion of 75 mL nonionic contrast media . Oral contrast: Not given Dose reduction was employed with automated exposure control. COMPARISON: 05/30/2023 CT FINDINGS: Lung bases: No pleural effusion or focal consolidation. Chest wall: Unremarkable. Liver: The liver is hypoattenuating relative to the spleen, compatible with steatosis. Otherwise the liver is normal in size and contour. No focal hepatic lesions identified. Biliary system: The biliary system is not dilated. Postsurgical changes compatible with cholecystectomy are noted. Spleen: An accessory splenule is identified. Otherwise, the spleen is within normal limits. Pancreas: No significant abnormality. Adrenal glands: No significant abnormality. Kidneys/ Ureter: Symmetric renal enhancement is noted. No evidence of hydroureteronephrosis. No evidence of nephrolithiasis. Stable appearance of hypoattenuating hypoenhancing cystic and calcified structure in the posterior superior pole of the left kidney measuring up to 1.8 cm (series 3 axial image 57). Bladder: The bladder appears unremarkable. Pelvic organs: No masses or other significant abnormalities seen. Bowel: Fluid noted in the esophagus, which may reflect a sequela of reflux. The stomach is unremarkable. The small bowel is of normal caliber throughout without evidence of wall thickening or obstruction. Postsurgical changes compatible with appendectomy are observed. The large bowel is without evidence of dilatation or thickening. Mesentery/Intraperitoneum: No intraperitoneal free fluid or air is seen. Mesentery is normal in appearance. Lymph nodes: No lymphadenopathy Vasculature: Atherosclerotic calcifications are noted throughout the abdominal pelvic vasculature. Otherwise, the abdominal aorta is normal in caliber without evidence of aneurysmal dilatation. The venous vasculature appears grossly unremarkable. Abdominal wall: The abdominal wall soft tissues appear unremarkable. Osseous structures: Postsurgical changes compatible with L5 laminectomy with L4 S1 posterior spinal fusion. Mild anterolisthesis of L5-S1 noted. Mild degenerative changes of the lumbar spine are observed. IMPRESSION: 1. No acute abdominopelvic process identified. 2. Hepatic steatosis, correlate with liver function tests. 3. Stable posterior superior left kidney calcified cystic structure, likely reflecting partially calcified cyst. 4. Fluid in the distal esophagus, correlate with concern for reflux. 5. Other chronic and postsurgical findings as discussed. Report Dictated on Electronically Signed By: Antony Thompson MD Electronically Signed Date/Time: 08/16/2023 5:30 AM EDT [facility] Radiology Study observation (narrative) [facility] Comprehensive metabolic 1998 panelon 08-16-2023 Albumin [Mass/Vol] 4.4 g/dL 3.5 - 5.0 g/dL [facility] ALP [Catalytic activity/Vol] 108 U/L 38 - 126 U/L [facility] ALT [Catalytic activity/Vol] 46 U/L 0 - 49 U/L [facility] Anion gap [Moles/Vol] 12 mmol/L 3 - 13 mmol/L [facility] AST [Catalytic activity/Vol] 47 U/L High 15 - 46 U/L [facility] Bilirubin [Mass/Vol] 0.8 mg/dL 0.2 - 1 .3 mg/dL [facility] Calcium [Mass/Vol] 9.7 mg/dL 8.4 - 10. 4 mg/dL [facility] Chloride [Moles/Vol] 100 mmol/L 98 - 10 7 mmol/L [facility] CO2 [Moles/Vol] 23 mmol/L 22 - 30 mmol/L [facility] Creatinine [Mass/Vol] 0.97 mg/dL 0.66 - 1.25 mg/dL [facility] GFR/1.73 sq M.predicted MDRD (S/P/Bld) [Vol rate/Area] - PINF [facility] Comment on above: Calculation based on the Chronic Kidney Disease Epidemiology Collaboration (CKD-EPI) equation refit without adjustment for race Glucose [Mass/Vol] 135 mg/dL High 70 - 100 mg/dL [facility] Interpretation and review of laboratory results Abnormal [facility] Potassium [Moles/Vol] 4.4 mmol/L 3.5 - 5.1 mmol/L [facility] Protein [Mass/Vol] 8.2 g/dL 6.3 - 8.2 g/dL [facility] Sodium [Moles/Vol] 135 mmol/L 135 - 145 mmol/L [facility] Urea nitrogen [Mass/Vol] 7 mg/dL Low 9 - 20 mg/dL [facility] Slightly hemolyzed [facility] ED Nursing Noteon 08-16-2023 ED Nursing Note Called [facility] for updated ETA. Dispatcher states they will be there shortly. Celeste Gibson RN 08/16/23 0821 Normal [facility] ED Nursing Note Report called to [facility]. [facility] transport called for transport. ETA 0750. Mini Albarran LPN 08/16/23 0658 Normal [facility] ED Nursing Note This RN was notified that patient was out of bed and appeared to to vomiting in the bedside commode. When I went to pt bedside pt was standing over the bedside vomiting into the bedside commode. This RN notified Dr Colindres who placed order for Zofran that was given Celeste Gibson RN 08/16/23 0609 Normal [facility] ED Nursing Note Pt to the ED by EMS per EMS pt c/o R lateral hip pain that radiates down to leg. Pt also complaints of abdominal pain. Pt is A&O x1 Normal [facility] ED Provider Noteon ED Provider Note EMERGENCY DEPARTMENT ENCOUNTER Pt Name: Kari Allan Birthdate 1970 Date of evaluation: 08/16/2023 ED Provider: Renata Colindres MD CHIEF COMPLAINT No chief complaint on file. HISTORY OF PRESENT ILLNESS (Location/Symptom, Timing/Onset, Context/Setting, Quality, Duration, Modifying Factors, Severity) Note limiting factors. I wore appropriate PPE for the entirety of this encounter. HPI Kari Allan is a 52 y.o. who presents to the emergency department with chief complaint of right hip pain abdominal pain patient is very poor historian I tried calling his family but was unable to get in touch with anyone he has a history of anoxic brain injury and alcohol abuse. Says that his belly was hurting and some right hip pain but denies trauma or falls no other complaints here Nursing Notes were reviewed. Limitations to history: Outside historians: REVIEW OF SYSTEMS Review of Systems Pertinent positives and negatives as per HPI. PAST MEDICAL HISTORY Past Medical History: Diagnosis Date Alcohol abuse with intoxication (HCC) Anemia Anoxic brain damage (CMS/HCC) (HCC) Anxiety Asthma Convulsion (HCC) COPD (chronic obstructive pulmonary disease) (HCC) Depression DVT (deep venous thrombosis) (HCC) Dysphagia Encephalopathy GERD (gastroesophageal reflux disease) Hepatitis Hypertension Impulse control disorder Insomnia, unspecified Need for assistance with personal care Opioid abuse (HCC) Other symbolic dysfunctions Pancreatitis Psychosis (HCC) PTSD (post-traumatic stress disorder) Solitary lung nodule SURGICAL HISTORY Past Surgical History: Procedure Laterality Date APPENDECTOMY BACK SURGERY 5 vertabrae fused CHOLECYSTECTOMY COLONOSCOPY 2014 CT CHEST ANGIOGRAM W AND/OR WO IV CONTRAST 04/08/2022 CT CHEST ANGIOGRAM W AND/OR WO IV CONTRAST 04/08/20[facility] IMAGING CYST REMOVAL wrist GASTROSTOMY TUBE PLACEMENT 03/01/2017 UPPER GASTROINTESTINAL ENDOSCOPY 02/16/2017 CURRENT MEDICATIONS Previous Medications ACETAMINOPHEN (TYLENOL) 325 MG TABLET Take 2 tablets by mouth every 6 hours as needed for fever, mild pain (1-3) or moderate pain (4-6). ALBUTEROL SULFATE 108 (90 BASE) MCG/ACT AEROSOL POWDER Inhale 1 puff every 2 hours as needed. APIXABAN (ELIQUIS) 5 MG TABLET Take 5 mg by mouth in the morning and 5 mg before bedtime. BACLOFEN (LIORESAL) 10 MG TABLET Take 10 mg by mouth 3 times daily. BISACODYL (DULCOLAX) 10 MG SUPPOSITORY Insert 10 mg into the rectum Daily as needed for constipation. BISACODYL (DULCOLAX) 5 MG EC TABLET Take 5 mg by mouth Daily as needed. DIVALPROEX SPRINKLE (DEPAKOTE SPRINKLE) [address] CAPSULE Take 500 mg by mouth 3 times daily. ESCITALOPRAM (LEXAPRO) 10 MG TABLET Take 1.5 tablets by mouth daily. FOLIC ACID (FOLVITE) 1 MG TABLET daily. GUAIFENESIN (HUMIBID 3) 400 MG TABLET Take 400 mg by mouth every 8 hours as needed for congestion. IPRATROPIUM-ALBUTEROL (DUO-NEB) 0.5-2.5 MG/3 ML NEBULIZER SOLUTION Inhale 3 mL every 6 hours as needed. LEVETIRACETAM (KEPPRA) 750 MG TABLET Take 1 tablet by mouth in the morning and 1 tablet before bedtime. MAGNESIUM HYDROXIDE (MILK OF MAGNESIA) 400 MG/5ML SUSPENSION Take 30 mL by mouth Daily as needed. MELATONIN 3 MG TABLET 3 mg Nightly as needed. MENTHOL, TOPICAL ANALGESIC, (BIOFREEZE ROLL-ON) 4 % GEL Apply topically every 8 hours as needed. NALTREXONE (DEPADE) 50 MG TABLET Take 50 mg by mouth in the morning. NIRMATRELVIR&RITONAVIR 300/100 (PAXLOVID, 300/100,) 20 X 150 MG & 10 X 100MG TABLET THERAPY PACK Take 3 tablets by mouth in the morning and 3 tablets in the evening. PANTOPRAZOLE (PROTONIX) 40 MG EC TABLET 40 mg 2 times daily. POLYETHYLENE GLYCOL, PEG, 3350 (GLYCOLAX) 17 GM/SCOOP POWDER Take 17 g by mouth daily. PYRIDOXINE (VITAMIN B-6) 25 MG TABLET 25 mg daily. QUETIAPINE (SEROQUEL) 200 MG TABLET 200 mg 2 times daily. THIAMINE (VITAMIN B-1) 100 MG TABLET 100 mg daily. THROAT LOZENGES (COUGH DROPS MENTHOL) LOZENGE Dissolve 1 lozenge in the mouth Once as needed. TRAMADOL (ULTRAM) 50 MG TABLET ALLERGIES Haloperidol and Paregoric FAMILY HISTORY Family History Problem Relation Name Age of Onset Diabetes Mother Diabetes Brother SOCIAL HISTORY Social History Socioeconomic History Marital status: Single Tobacco Use Smoking status: Some Days Packs/day: 2.00 Years: 40.00 Additional pack years: 0.00 Total pack years: 80.00 Types: Cigarettes Smokeless tobacco: Never Vaping Use Vaping Use: Never used Substance and Sexual Activity Alcohol use: Yes Drug use: Not Currently Sexual activity: Not Currently Social Determinants of Health Intimate Partner Violence: Patient Unable To Answer (05/20/2023) Humiliation, Afraid, Rape, and Kick questionnaire Fear of Current or Ex-Partner: Patient unable to answer Emotionally Abused: Patient unable to answer Physically Abused: Patient unable to answer Sexu (more content not included)... Normal [facility] LIPASEon 08-16-2023 Lipase [Catalytic activity/Vol] 29 U/L Normal 23-300 [facility] Comment on above: Performed By: #### L AB17, LAB99, [id number] ####Automotive Title Clerk: ABRAN HANEY ([id number])[place] ([facility])[address] Laboratory - Chemistry and C hemistry - challengeon 08-16-2023 Troponin I.cardiac [Mass/Vol] ng/mL NINF - 0.034 ng/mL [facility] Lipase [Catalytic activity/Vol] 29 U/L 23 - 300 U/L [facility] Lipase [Catalytic activity/V ol]on 08-16-2023 Interpretation and review of laboratory results Normal [facility] No Panel Informationon 08-15 [facility] TROPONIN Ion 08-16-2023 Troponin I.cardiac [Mass/Vol] ng/mL Normal <0.034 [facility] Comment on above: Result Comment: [facility] COMMENTS: Patients with high levels of Biotin oral intake (ie >5 mg/day) may have falsely decreased Troponin levels. Performed By: #### L AB17, LAB99, [id number] ####Automotive Title Clerk: ABRAN HANEY ([id number])[facility] [place] [address] Troponin I.cardiac [Mass/Vol ]on 08-16-2023 Interpretation and review of laboratory results Normal [facility] Patients with high l evels of Biotin oral intake (ie >5 mg/day) may have falsely decreased Troponin levels. [facility] [facility] Urinalysis complete panel (U )on 08-16-2023 Bilirubin Ql (U) Negative Negative mg/dL [facility] Clarity (U) Clear Clear [facility] Color (U) Light Yellow Lt. Yellow [facility] Glucose Ql (U) Normal Normal (<70) mg/dL [facility] Hemoglobin Ql (U) Negative Negative mg/dL [facility] Interpretation and review of laboratory results Normal [facility] Ketones (U) [Mass/Vol] Negative Negat brandon mg/dL [facility] Leukocyte esterase Test strip Ql (U) Negative Negative Mo/uL [facility] Nitrite Ql (U) Negative Negative [facility] pH (U) 6.5 [pH] 5.0 - 8.0 pH [facility] Protein (U) [Mass/Vol] Negative Negat brandon mg/dL [facility] Specific gravity (U) [Rel density] 1.011 1.005 - 1.030 [facility] Urobilinogen (U) [Mass/Vol] Normal Normal (0-1) mg/dL [facility] XR Hip - right 3 Viewson No acute fracture or dislocation identified. Degenerative and other chronic changes as discussed. Report Dictated on Electronically Signed By: Antony Thompson MD Electronically Signed Date/Time: 08/16/2023 2:33 AM EDT [facility] Patient Name: KARI MUHAMMAD : 1970 Exam Date/Time: 08/16/2023 02:30 Procedure: XR HIP 2 OR 3 VW RIGHT Ordering Provider: COLINDRES QUENTIN Reason For Exam: rigvht hip pain RIGHT HIP: CLINICAL INDICATION: Right hip pain TECHNIQUE: AP and lateral COMPARISON: 05/21/2023 FINDINGS: There is no evidence for fracture or dislocation. Remote fracture deformity of the left inferior pubic ramus is noted. Osteoarthritic changes are noted in the hips bilaterally with osteophytosis and joint space narrowing. The sacroiliac joints are normal. Postsurgical changes compatible with lumbosacral fusion noted. Phleboliths are noted in the pelvis. Surgical staple noted in the midline pelvis. [facility] Antony Thompson MD - 08/16/2023 Patient Name: KARI ALLAN : 1970 Exam Date/Time: 08/16/2023 02:30 Procedure: XR HIP 2 OR 3 VW RIGHT Ordering Provider: COLINDRES QUENTIN Reason For Exam: rigvht hip pain RIGHT HIP: CLINICAL INDICATION: Right hip pain TECHNIQUE: AP and lateral COMPARISON: 05/21/2023 FINDINGS: There is no evidence for fracture or dislocation. Remote fracture deformity of the left inferior pubic ramus is noted. Osteoarthritic changes are noted in the hips bilaterally with osteophytosis and joint space narrowing. The sacroiliac joints are normal. Postsurgical changes compatible with lumbosacral fusion noted. Phleboliths are noted in the pelvis. Surgical staple noted in the midline pelvis. IMPRESSION: No acute fracture or dislocation identified. Degenerative and other chronic changes as discussed. Report Dictated on Electronically Signed By: Antony Thompson MD Electronically Signed Date/Time: 08/16/2023 2:33 AM EDT [facility] Radiology Study observation (narrative) [facility] XR Hip - right 3 ViewsOrdere d By: Antony Thompson on 08-16-2023 [facility] Work Phone: 36on 08-06-2023 36 Jeannine with [facility] called to r/s DIRECTOR OF AUDIOLOGY appt in [facility] location. Rescheduled very first available 10/27/23. Normal [facility] Progress Noteon 08-05-2023 Progress Note Patient had not had follow up with Dr Rubio for renal mass Jeannine at [facility] called and notified that patient had not had follow up for renal mass. Jeannine states she will call office to schedule. Number given to [facility] to follow up Normal [facility] Basophil percentageOrdered B y: Antonella Marrero on 06-28-2023 Chloride [Moles/Vol] 106 mmol/L 98-107 [facility] Glucose [Mass/Vol] 102 mg/dL 74-106 [facility] Comment on above: Fasting Glucose resu lt from 100 to 125 mg/dL suggests IMPAIRED HOMEOSTASIS per A.D.A. criteria. Hemoglobin (Bld) [Mass/Vol] 13.4 g/dL 13.0-16.5 [facility] Potassium [Moles/Vol] 4.0 mmol/L 3.5-5.1 [facility] Sodium [Moles/Vol] 137 mmol/L 136-145 [facility] WBC (Bld) [#/Vol] 7.5 10*3/uL 4.4-11.0 [facility] Determination of erythrocyte mean corpuscular volume (MCV)Ordered By: Antonella Marrero on 06-28-2023 MCV (RBC) [Entitic vol] 92.4 fL 80-94 [facility] Erythrocyte distribution wid th ratioOrdered By: Antonella Marrero on 06-28-2023 Erythrocyte distribution width (RBC) [Ratio] 13.2 % 11.6-14.6 [facility] Erythrocyte distribution wid th standard deviationOrdered By: Antonella Marrero on 06-28-2023 Erythrocyte distribution width (RBC) [Entitic vol] 45.5 fL 35.1-43.9 [facility] Hematocrit Auto (Bld) [Volum e fraction]Ordered By: Antonella Marrero on 06-28-2023 Hematocrit (Bld) [Volume fraction] 39.9 % 40-54 [facility] Laboratory - Chemistry and C hemistry - challengeOrdered By: Antonella Marrero on 06-28-2023 CO2 [Moles/Vol] 25.0 mmol/L 21.0-32.0 [facility] Urea nitrogen/Creatinine [Mass ratio] 5.0 mg/mg 10-20 [facility] Laboratory - Hematology and Cell countsOrdered By: Antonella Marrero on 06-28-2023 MCH (RBC) [Entitic mass] 31.0 pg 27.0-32.0 [facility] MCHC (RBC) [Mass/Vol] 33.6 g/dL 32-36 [facility] Platelets (Bld) [#/Vol] 179 10*3/uL 150-450 [facility] No Panel InformationOrdered By: Antonella Marrero on 06-28-2023 Estimated GFR (MDRD) Amer 100 mL/min >60 [facility] Comment on above: GFR Calc Estimated GFR (MDRD) Non-Af Amer 83 mL/min >60 [facility] Comment on above: Non- GFR Calc Platelet mean volume Esteban-Ec ker (Bld) [Entitic vol]Ordered By: Antonella Marrero on 06-28-2023 Platelet mean volume (Bld) [Entitic vol] 9.5 fL 6.2-12.0 [facility] RBC Auto (Bld) [#/Vol]Ordere d By: Antonella Marrero on 06-28-2023 RBC (Bld) [#/Vol] 4.32 10*6/uL 4.6-6.2 [facility] Serum or plasma calcium zakiya urement (mass/volume)Ordered By: Antonella Marrero on 06-28-2023 Calcium [Mass/Vol] 9.1 mg/dL 8.5-10.1 [facility] Serum or plasma creatinine m easurement (mass/volume)Ordered By: Antonella Marrero on 06-28-2023 Creatinine [Mass/Vol] 1.00 mg/dL 0.70-1.30 [facility] Comment on above: The validity of the calculated GFR & GFRAA in patients over 70 years has not been determined. Clinical correlation is essential. Serum or plasma urea nitroge n measurement (mass/volume)Ordered By: Antonella Marrero on 06-28-2023 Urea nitrogen [Mass/Vol] 5 mg/dL 7-18 [facility] Thin prep Papanicolaou smear with manual screeningOrdered By: Antonella Marrero on 06-28-2023 Thin prep Papanicolaou smear with manual screening 6 5-15 [facility] No Panel InformationOrdered By: Antonella Marrero on 06-09-2023 Prostate Specific Antigen Screen 1.20 ng/mL 0.00-4.00 [facility] Comment on above: This test was perfor med using the TPSA assay method for [employer] chemistry system. Values obtained with differentassay methods cannot be used interchangably.When changing PSA assays in the course of monitoring apatient, additional sequential testing should be carriedout to confirm baseline values. Ammoniaon 06-07-2023 Ammonia (P) [Moles/Vol] umol/L Low 9 - 30 umol/L [facility] Interpretation and review of laboratory results Abnormal [facility] CBC W Auto Differential pane l (Bld)Ordered By: Pearl Talamantes on 06-07-2023 Basophils (Bld) [#/Vol] 0.1 10*3/uL 0.0 - 0.2 10*3/uL [facility] Basophils/100 WBC (Bld) 2.0 % 0.0 - 2.0 % [facility] Eosinophils (Bld) [#/Vol] 0.4 10*3/uL 0.0 - 0.5 10*3/uL [facility] Eosinophils/100 WBC (Bld) 5.9 % 1.0 - 6.0 % [facility] Erythrocyte distribution width (RBC) [Ratio] 14.4 % 11.5 - 14.5 % [facility] Hematocrit (Bld) [Volume fraction] 42.0 % 40.0 - 52.0 % [facility] Hemoglobin (Bld) [Mass/Vol] 14.3 g/dL 13.0 - 18.0 g/dL [facility] Interpretation and review of laboratory results Abnormal [facility] Lymphocytes (Bld) [#/Vol] 2.3 10*3/uL 1.0 - 4.3 10*3/uL [facility] Lymphocytes/100 WBC (Bld) 37.4 % 20.0 - 40.0 % [facility] MCH (RBC) [Entitic mass] 31.8 pg 26.0 - 34.0 pg [facility] MCHC (RBC) [Mass/Vol] 34.0 % 32.0 - 36.0 % [facility] MCV (RBC) [Entitic vol] 93.5 fL 80.0 - 98.0 fL [facility] Monocytes (Bld) [#/Vol] 0.6 10*3/uL 0.0 - 0.8 10*3/uL [facility] Monocytes/100 WBC (Bld) 10.4 % High 2.0 - 10.0 % [facility] Neutrophils (Bld) [#/Vol] 2.7 10*3/uL 1.8 - 7.0 10*3/uL [facility] Neutrophils/100 WBC (Bld) 44.3 % 40.0 - 80.0 % [facility] Nucleated RBC/100 WBC (Bld) [Ratio] 0.0 % [facility] Platelet mean volume (Bld) [Entitic vol] 6.9 fL Low 7.4 - 12.4 fL [facility] Platelets (Bld) [#/Vol] 266 10*3/uL 140 - 440 10*3/uL [facility] RBC (Bld) [#/Vol] 4.49 10*6/uL 4.40 - 5.90 10*6/uL [facility] WBC (Bld) [#/Vol] 6.1 10*3/uL 3.6 - 10.7 10*3/uL [facility] CT Head WO contraston 2023 1. No acute intracra nial abnormality. 2. Mild maxillary sinusitis. Report Dictated on Electronically Signed By: Judah Thompson MD Electronically Signed Date/Time: 06/07/2023 3:34 PM [facility] Patient Name: KARI MUHAMMAD : 1970 Exam Date/Time: 06/07/2023 15:01 Procedure: CT HEAD WO IV CONTRAST Ordering Provider: GAN DANIEL Reason For Exam: Mental status change, unknown cause EXAMINATION: CT of the head without intravenous contrast. EXAM DATE & TIME: 06/07/2023 3:01 PM EST INDICATION: Mental status change, unknown cause ADDITIONAL INFORMATION: 52-year-old male with mental status change of unknown cause presents for evaluation COMPARISON: CT head dated 05/20/2023 LIMITATIONS: None TECHNIQUE: Thin axial imaging of the head was performed without intravenous contrast. Images were reformatted in coronal and sagittal projections using the raw CT data and were interpreted in conjunction with the axial images to render the findings listed below. Dose reduction was employed with automated exposure control. FINDINGS: Brain: No mass or acute hemorrhage. No evidence of acute infarct. Confluent areas of periventricular and subcortical white matter hypodensity are present, in keeping with chronic ischemic microangiopathy. Ventricles: Generalized enlargement of the ventricles and sulci is noted without extracerebral collection with mass effect. Paranasal sinuses: Mucosal thickening is present involving the maxillary sinuses. Mastoids: Clear. Skull: The osseous calvarium is intact. Orbits: No orbital emphysema. Soft tissues: The soft tissues are unremarkable. [facility] Judah Thompson MD - 06/07/2023 Patient Name: KARI ALLAN : 1970 Exam Date/Time: 06/07/2023 15:01 Procedure: CT HEAD WO IV CONTRAST Ordering Provider: GAN DANIEL Reason For Exam: Mental status change, unknown cause EXAMINATION: CT of the head without intravenous contrast. EXAM DATE & TIME: 06/07/2023 3:01 PM EST INDICATION: Mental status change, unknown cause ADDITIONAL INFORMATION: 52-year-old male with mental status change of unknown cause presents for evaluation COMPARISON: CT head dated 05/20/2023 LIMITATIONS: None TECHNIQUE: Thin axial imaging of the head was performed without intravenous contrast. Images were reformatted in coronal and sagittal projections using the raw CT data and were interpreted in conjunction with the axial images to render the findings listed below. Dose reduction was employed with automated exposure control. FINDINGS: Brain: No mass or acute hemorrhage. No evidence of acute infarct. Confluent areas of periventricular and subcortical white matter hypodensity are present, in keeping with chronic ischemic microangiopathy. Ventricles: Generalized enlargement of the ventricles and sulci is noted without extracerebral collection with mass effect. Paranasal sinuses: Mucosal thickening is present involving the maxillary sinuses. Mastoids: Clear. Skull: The osseous calvarium is intact. Orbits: No orbital emphysema. Soft tissues: The soft tissues are unremarkable. IMPRESSION: 1. No acute intracranial abnormality. 2. Mild maxillary sinusitis. Report Dictated on Electronically Signed By: Judah Thompson MD Electronically Signed Date/Time: 06/07/2023 3:34 PM EST [facility] Radiology Study observation (narrative) [facility] CT Head WO contrastOrdered B y: Judah Thompson on 06-07-2023 [facility] Work Phone: Comprehensive metabolic 1998 panelon 06-07-2023 Albumin [Mass/Vol] 4.1 g/dL 3.5 - 5.0 g/dL [facility] ALP [Catalytic activity/Vol] 251 U/L High 38 - 126 U/L [facility] ALT [Catalytic activity/Vol] 30 U/L 0 - 49 U/L [facility] Anion gap [Moles/Vol] 11 mmol/L 3 - 13 mmol/L [facility] AST [Catalytic activity/Vol] 41 U/L 15 - 46 U/L [facility] Bilirubin [Mass/Vol] 0.7 mg/dL 0.2 - 1 .3 mg/dL [facility] Calcium [Mass/Vol] 9.4 mg/dL 8.4 - 10. 4 mg/dL [facility] Chloride [Moles/Vol] 99 mmol/L 98 - 10 7 mmol/L [facility] CO2 [Moles/Vol] 28 mmol/L 22 - 30 mmol/L [facility] Creatinine [Mass/Vol] 1.06 mg/dL 0.66 - 1.25 mg/dL [facility] GFR/1.73 sq M.predicted MDRD (S/P/Bld) [Vol rate/Area] 83.4 mL/min/{1.73_m2} - PINF [facility] Comment on above: Calculation based on the Chronic Kidney Disease Epidemiology Collaboration (CKD-EPI) equation refit without adjustment for race Glucose [Mass/Vol] 147 mg/dL High 70 - 100 mg/dL [facility] Interpretation and review of laboratory results Abnormal [facility] Potassium [Moles/Vol] 3.8 mmol/L 3.5 - 5.1 mmol/L [facility] Protein [Mass/Vol] 7.8 g/dL 6.3 - 8.2 g/dL [facility] Sodium [Moles/Vol] 139 mmol/L 135 - 145 mmol/L [facility] Urea nitrogen [Mass/Vol] 6 mg/dL Low 9 - 20 mg/dL [facility] Drug screen panel, emergency Ordered By: Juarez White on 06-07-2023 Amphetamines Screen method >1000 ng/mL Ql (U) Negative [facility] Barbiturates Screen method >200 ng/mL Ql (U) Negative [facility] Benzodiazepines Ql (U) Negative [facility] COCAINE METAB. SCREEN Negative [facility] Methadone Screen Ql (U) Negative [facility] Opiates Screen Ql (U) Negative [facility] oxyCODONE Ql (U) Positive [facility] Phencyclidine Ql (U) Negative [facility] The expected value f or all of the drugs listed above is Negative. The following drugs or drug groups have been screened for by Immunoassay at the following thresholds: Amphetamine class (1000 ng/mL) Barbiturates (200 ng/mL) Benzodiazepines (200 ng/mL) Cocaine (300 ng/mL) Methadone (300 ng/mL) Opiates (300 ng/mL) Oxycodone (100 ng/mL) PCP (25 ng/mL) NOTE: These results are for medical treatment only. Analysis performed using non-forensic procedures. POSITIVE results are NOT confirmed by a more specific alternative method unless requested. If confirmation is needed, request confirmation under separate order. [facility] ECG 12 leadOrdered By: James Maravilla on 06-07-2023 Heart rate 93 /min bpm [facility] Work Phone: P [place] 17 degrees [facility] Work Phone: OK Interval 144 ms [facility] Work Phone: QRS [place] 88 degrees [facility] Work Phone: [phone] QRSD Interval 92 ms [facility] Work Phone: QT Interval 376 ms [facility] Work Phone: [phone] QTC Interval 468 ms [facility] Work Phone: T Wave [place] 24 degrees [facility] Work Phone: [facility] Work Phone: ECG 12 leadon 06-07-2023 SINUS RHYTHM BASELINE WANDER Electronically Signed On 06-07-2023 14:04:59 EST by James Maravilla CV James Torres MD - 06/07/2023 IMPRESSION: SINUS RHYTHM BASELINE WANDER Electronically Signed On 06-07-2023 14:04:59 EST by James Maravilla [facility] Ethanol (Bld) [Mass/Vol]on 0 06-07-2023 Ethanol [Mass/Vol] g/dL 0.000 - 0.010 g/dL [facility] Comment on above: This sample may have been collected by using an alcohol pad to swab the skin. Ethanol-containing antiseptics before venipuncture may not be causes of spurious or false positive results of alcohol measurement at least when ideal venipunctures can be performed. However, under non-ideal collection conditions, alcohol contamination is a possibility. Results to be correlated clinically. Interpretation and review of laboratory results Normal [facility] [employer] Lipaseon 06-07-2023 Lipase [Catalytic activity/Vol] 34 U/L 23 - 300 U/L [facility] Lipase [Catalytic activity/V ol]on 06-07-2023 Interpretation and review of laboratory results Normal [facility] No Panel Informationon 06-07 [facility] Troponin - One Time order ON [place] 06-07-2023 Troponin I.cardiac [Mass/Vol] ng/mL NINF - 0.034 ng/mL [facility] Troponin I.cardiac [Mass/Vol ]on 06-07-2023 Interpretation and review of laboratory results Normal [facility] Patients with high l evels of Biotin oral intake (ie >5 mg/day) may have falsely decreased Troponin levels. [facility] Urinalysis complete panel (U )Ordered By: Zully Crowder on 06-07-2023 Bacteria LM.HPF (Urine sed) [#/Area] Negative Negative /HPF [facility] Bilirubin Ql (U) Negative Negative mg/dL [facility] Clarity (U) Clear Clear [facility] Color (U) Yellow Lt. Yellow [facility] Epithelial cells.squamous LM.HPF (Urine sed) [#/Area] 0-2 [facility] Glucose Ql (U) Normal Normal (<70) mg/dL [facility] Hemoglobin Ql (U) Negative Negative mg/dL [facility] Interpretation and review of laboratory results Abnormal [facility] Ketones (U) [Mass/Vol] Negative Negat brandon mg/dL [facility] Leukocyte esterase Test strip Ql (U) Negative Negative Mo/uL [facility] Mucus LM.HPF (Urine sed) [#/Area] Few Negative /LPF [facility] Nitrite Ql (U) Negative Negative [facility] pH (U) 6.0 [pH] 5.0 - 8.0 pH [facility] Protein (U) [Mass/Vol] 20 mg/dL Abnormal Negative [facility] RBC LM.HPF (Urine sed) [#/Area] 0-2 [facility] Specific gravity (U) [Rel density] 1.020 1.005 - 1.030 [facility] Urobilinogen (U) [Mass/Vol] Normal Normal (0-1) mg/dL [facility] WBC LM.HPF (Urine sed) [#/Area] 0-2 [facility] XR Chest Single viewon 06-07 No acute abnormality Report Dictated on Electronically Signed By: Benito Herrera MD Electronically Signed Date/Time: 06/07/2023 2:11 PM [facility] Patient Name: KARI MUHAMMAD : 1970 Exam Date/Time: 06/07/2023 14:40 Procedure: XR CHEST 1 VIEW Ordering Provider: GAN DANIEL Reason For Exam: DYSPNEA PORTABLE CHEST CLINICAL INDICATION: Shortness of breath TECHNIQUE: Portable AP COMPARISON: 05/20/2023 FINDINGS: The heart and mediastinum are normal. The lungs are clear. Costophrenic angles are sharp. The osseous structures are unremarkable. [facility] Benito Herrera MD - 06/07/2023 Patient Name: KARI ALLAN : 1970 Exam Date/Time: 06/07/2023 14:40 Procedure: XR CHEST 1 VIEW Ordering Provider: GAN DANIEL Reason For Exam: DYSPNEA PORTABLE CHEST CLINICAL INDICATION: Shortness of breath TECHNIQUE: Portable AP COMPARISON: 05/20/2023 FINDINGS: The heart and mediastinum are normal. The lungs are clear. Costophrenic angles are sharp. The osseous structures are unremarkable. IMPRESSION: No acute abnormality Report Dictated on Electronically Signed By: Benito Herrera MD Electronically Signed Date/Time: 06/07/2023 2:11 PM EST [facility] Study observation (narrative) [facility] XR Chest Single viewOrdered By: Benito Herrera on 06-07-2023 [facility] Work Phone: XR Lumbar spine 2 or 3 Views on 06-07-2023 1. No acute osseous abnormality. 2. Postsurgical and degenerative change, similar to comparison. Report Dictated on Electronically Signed By: Edgar Peguero MD Electronically Signed Date/Time: 06/07/2023 5:12 PM EST [facility] [facility] Patient Name: KARI MUHAMMAD : 1970 Exam Date/Time: 06/07/2023 16:55 Procedure: XR LUMBAR SPINE 2-3 VIEWS Ordering Provider: GAN DANIEL Reason For Exam: low back pain LUMBAR SPINE 3 VIEWS CLINICAL INDICATION: low back pain TECHNIQUE: 3 views of the lumbar spine. COMPARISON: April,. FINDINGS: Postsurgical change, including posterior fixation rods, pedicle screws and interspace devices, again noted in the L4-S1 levels, with mild anterolisthesis in L5-S1 level, stable. No acute loss of height or other gross malalignment of vertebral bodies. No osseous destruction. Variable endplate sclerosis and spurring in the L1-L4 levels. Paraspinal soft tissues grossly unremarkable. [facility] Edgar Peguero MD - 06/07/2023 [facility] 1970 [id number] Exam Date/Time: 06/07/2023 16:55 Procedure: XR LUMBAR SPINE 2-3 VIEWS Ordering Provider: GAN DANIEL Reason For Exam: low back pain LUMBAR SPINE 3 VIEWS CLINICAL INDICATION: low back pain TECHNIQUE: 3 views of the lumbar spine. COMPARISON: April,. FINDINGS: Postsurgical change, including posterior fixation rods, pedicle screws and interspace devices, again noted in the L4-S1 levels, with mild anterolisthesis in L5-S1 level, stable. No acute loss of height or other gross malalignment of vertebral bodies. No osseous destruction. Variable endplate sclerosis and spurring in the L1-L4 levels. Paraspinal soft tissues grossly unremarkable. IMPRESSION: 1. No acute osseous abnormality. 2. Postsurgical and degenerative change, similar to comparison. Report Dictated on Electronically Signed By: Edgar Peguero MD Electronically Signed Date/Time: 06/07/2023 5:12 PM EST [facility] Radiology Study observation (narrative) [facility] XR Lumbar spine 2 or 3 Views Ordered By: Edgar Peguero on 06-07-2023 [facility] Work Phone: Basophil percentageOrdered B y: Antonella Marrero on 06-02-2023 Basophil percentage 0 SE[facility] Test strip Ql (U)O rdered By: Antonella Marrero on 06-02-2023 Bilirubin Ql (U) Negative Negative [facility] Culture, urineOrdered By: Romie Berry on 06-02-2023 Bacteria identified Cx Nom (U) Mixed Gram Pos & Gram Neg Org [facility] Ketones Test strip Ql (U)Ord ered By: Antonella Marrero on 06-02-2023 Ketones Ql (U) Negative Negative [facility] Mucus LM Ql (Urine sed)Order ed By: Antonella Marrero on 06-02-2023 Mucus Ql (Urine sed) 0 SEEN /hpf [facility] Nitrite Test strip Ql (U)Ord ered By: Antonella Marrero on 06-02-2023 Nitrite Ql (U) Negative Negative [facility] Protein Test strip Ql (U)Ord ered By: Antonella Marrero on 06-02-2023 Protein Ql (U) Negative Negative [facility] Squamous epithelial cells de tection in urine sediment by light microscopyOrdered By: Antonella Marrero on 06-02-2023 Epithelial cells.squamous LM Ql (Urine sed) 0 SEEN /hpf 0-5 [facility] Urine blood detectionOrdered By: Antonella Marreor on 06-02-2023 RBC Ql (U) 10 /ul Negative [facility] RBC Ql (U) 0-5 SEEN /hpf 0-5 [facility] Urine clarityOrdered By: Nidhi Marrero on 06-02-2023 Clarity (U) Clear Clear [facility] [facility] Urine color determinationOrd ered By: Antonella Marrero on 06-02-2023 Color (U) Yellow Yellow [facility] Urine glucose detectionOrder ed By: Antonella Marrero on 06-02-2023 Glucose Ql (U) Normal mg/dl Normal [facility] Urine leukocyte esterase det ection by dipstickOrdered By: Antonella Marrero on 06-02-2023 Leukocyte esterase Test strip Ql (U) Negative Negative [facility] Urine pHOrdered By: Antonella mitchell on 06-02-2023 pH (U) 6.0 [pH] 5.0 - 8.0 [facility] Urine sediment bacteria coun t by microscopy (number/high power field)Ordered By: Antonella Marrero on 06-02-2023 Bacteria LM.HPF (Urine sed) [#/Area] 0 /[HPF] None Seen [facility] Urine specific gravity measu rementOrdered By: Antonella Marrero on 06-02-2023 Specific gravity (U) [Rel density] 1.015 1.002-1.03 0 [facility] Urobilinogen Auto test strip Ql (U)Ordered By: Antonella Marrero on 06-02-2023 Urobilinogen Ql (U) Normal mg/dl Normal [facility] CBC W Auto Differential pane l (Bld)Ordered By: Pearl Talamantes on 05-30-2023 Basophils (Bld) [#/Vol] 0.1 10*3/uL 0.0 - 0.2 10*3/uL [facility] Basophils/100 WBC (Bld) 1.1 % 0.0 - 2.0 % [facility] Eosinophils (Bld) [#/Vol] 0.3 10*3/uL 0.0 - 0.5 10*3/uL [facility] Eosinophils/100 WBC (Bld) 4.0 % 1.0 - 6.0 % [facility] Erythrocyte distribution width (RBC) [Ratio] 14.4 % 11.5 - 14.5 % [facility] Hematocrit (Bld) [Volume fraction] 38.9 % Low 40.0 - 52.0 % [facility] Hemoglobin (Bld) [Mass/Vol] 13.5 g/dL 13.0 - 18.0 g/dL [facility] Interpretation and review of laboratory results Abnormal [facility] Lymphocytes (Bld) [#/Vol] 2.7 10*3/uL 1.0 - 4.3 10*3/uL [facility] Lymphocytes/100 WBC (Bld) 32.9 % 20.0 - 40.0 % [facility] MCH (RBC) [Entitic mass] 32.3 pg 26.0 - 34.0 pg [facility] MCHC (RBC) [Mass/Vol] 34.7 % 32.0 - 36.0 % [facility] MCV (RBC) [Entitic vol] 92.9 fL 80.0 - 98.0 fL [facility] Monocytes (Bld) [#/Vol] 1.0 10*3/uL High 0.0 - 0.8 10*3/uL [facility] Monocytes/100 WBC (Bld) 12.1 % High 2.0 - 10.0 % [facility] Neutrophils (Bld) [#/Vol] 4.1 10*3/uL 1.8 - 7.0 10*3/uL [facility] Neutrophils/100 WBC (Bld) 49.9 % 40.0 - 80.0 % [facility] Nucleated RBC/100 WBC (Bld) [Ratio] 0.0 % [facility] Platelet mean volume (Bld) [Entitic vol] 6.7 fL Low 7.4 - 12.4 fL [facility] Platelets (Bld) [#/Vol] 238 10*3/uL 140 - 440 10*3/uL [facility] RBC (Bld) [#/Vol] 4.18 10*6/uL Low 4.40 - 5.90 10*6/uL [facility] WBC (Bld) [#/Vol] 8.2 10*3/uL 3.6 - 10.7 10*3/uL [facility] CT Abdomen and Pelvis W cont rast Kandis 05-30-2023 1. No acute abdomino pelvic process identified. 2. Hepatic steatosis, correlate with liver function tests. 3. Stable posterior superior left kidney calcified cystic structure, likely representing partially calcified cyst. Ultrasound may be obtained for further evaluation if indicated. 4. Status post laminectomy and lumbosacral posterior fusion with persistent L5-S1 anterolisthesis. 5. Other chronic and postsurgical findings as discussed. Report Dictated on Electronically Signed By: Antony Thompson MD Electronically Signed Date/Time: 05/30/2023 3:03 PM [facility] Patient Name: KARI MUHAMMAD : 1970 Exam Date/Time: 05/30/2023 14:41 Procedure: CT ABDOMEN PELVIS W CONTRAST Ordering Provider: MARCIAL GREGORY Reason For Exam: Abdominal pain, acute, nonlocalized CT ABDOMEN AND PELVIS WITH CONTRAST CLINICAL INDICATION: Abdominal pain, back pain TECHNIQUE: Transaxial sequence was performed through the abdomen and pelvis during the intravenous infusion of 75 mL nonionic contrast media . Oral contrast: Not given Dose reduction was employed with automated exposure control. COMPARISON: 02/13/2017 FINDINGS: Lung bases: No pleural effusion or focal consolidation. Chest wall: Unremarkable. Liver: The liver is hypoattenuating relative to the spleen, compatible with steatosis. Otherwise the liver is normal in size and contour. No focal hepatic lesions identified. Biliary system: The biliary system is not dilated. Postsurgical changes compatible with cholecystectomy are noted. Spleen: An accessory splenule is identified. Otherwise, the spleen is within normal limits. Pancreas: No significant abnormality. Adrenal glands: No significant abnormality. Kidneys/ Ureter: Symmetric renal enhancement is noted. No evidence of hydroureteronephrosis. No evidence of nephrolithiasis. Stable cystic and calcified structure noted in the posterior superior pole of the left kidney measuring up to 1.8 cm. Bladder: The bladder appears unremarkable. Pelvic organs: No masses or other significant abnormalities seen. Bowel: Esophagus is unremarkable. The stomach is unremarkable. The small bowel is of normal caliber throughout without evidence of wall thickening or obstruction. Postsurgical changes compatible with appendectomy are observed. The large bowel is without evidence of dilatation or thickening. Mesentery/Intraperitoneum: No intraperitoneal free fluid or air is seen. Mesentery is normal in appearance. Lymph nodes: No lymphadenopathy Vasculature: The abdominal aorta is normal in caliber without evidence of aneurysmal dilatation. The venous vasculature appears grossly unremarkable. Abdominal wall: The abdominal wall soft tissues appear unremarkable. Osseous structures: Postsurgical changes compatible with L5 laminectomy with L4-S1 posterior spinal fusion. Mild anterolisthesis of L5-S1 is noted. Mild degenerative changes of the lumbar spine are observed. [facility] Antony Thompson MD - 05/30/2023 [facility] 1970 [id number] Exam Date/Time: 05/30/2023 14:41 Procedure: CT ABDOMEN PELVIS W CONTRAST Ordering Provider: MARCIAL GREGORY Reason For Exam: Abdominal pain, acute, nonlocalized CT ABDOMEN AND PELVIS WITH CONTRAST CLINICAL INDICATION: Abdominal pain, back pain TECHNIQUE: Transaxial sequence was performed through the abdomen and pelvis during the intravenous infusion of 75 mL nonionic contrast media . Oral contrast: Not given Dose reduction was employed with automated exposure control. COMPARISON: 02/13/2017 FINDINGS: Lung bases: No pleural effusion or focal consolidation. Chest wall: Unremarkable. Liver: The liver is hypoattenuating relative to the spleen, compatible with steatosis. Otherwise the liver is normal in size and contour. No focal hepatic lesions identified. Biliary system: The biliary system is not dilated. Postsurgical changes compatible with cholecystectomy are noted. Spleen: An accessory splenule is identified. Otherwise, the spleen is within normal limits. Pancreas: No significant abnormality. Adrenal glands: No significant abnormality. Kidneys/ Ureter: Symmetric renal enhancement is noted. No evidence of hydroureteronephrosis. No evidence of nephrolithiasis. Stable cystic and calcified structure noted in the posterior superior pole of the left kidney measuring up to 1.8 cm. Bladder: The bladder appears unremarkable. Pelvic organs: No masses or other significant abnormalities seen. Bowel: Esophagus is unremarkable. The stomach is unremarkable. The small bowel is of normal caliber throughout without evidence of wall thickening or obstruction. Postsurgical changes compatible with appendectomy are observed. The large bowel is without evidence of dilatation or thickening. Mesentery/Intraperitoneum: No intraperitoneal free fluid or air is seen. Mesentery is normal in appearance. Lymph nodes: No lymphadenopathy Vasculature: The abdominal aorta is normal in caliber without evidence of aneurysmal dilatation. The venous vasculature appears grossly unremarkable. Abdominal wall: The abdominal wall soft tissues appear unremarkable. Osseous structures: Postsurgical changes compatible with L5 laminectomy with L4-S1 posterior spinal fusion. Mild anterolisthesis of L5-S1 is noted. Mild degenerative changes of the lumbar spine are observed. IMPRESSION: 1. No acute abdominopelvic process identified. 2. Hepatic steatosis, correlate with liver function tests. 3. Stable posterior superior left kidney calcified cystic structure, likely representing partially calcified cyst. Ultrasound may be obtained for further evaluation if indicated. 4. Status post laminectomy and lumbosacral posterior fusion with persistent L5-S1 anterolisthesis. 5. Other chronic and postsurgical findings as discussed. Report Dictated on Electronically Signed By: Antony Thompson MD Electronically Signed Date/Time: 05/30/2023 3:03 PM EST [facility] Radiology Study observation (narrative) [facility] CT Abdomen and Pelvis W cont rast IVOrdered By: Antony Thompson on 05-30-2023 [facility] Work Phone: Comprehensive metabolic 1998 panelon 05-30-2023 Albumin [Mass/Vol] 3.7 g/dL 3.5 - 5.0 g/dL [facility] ALP [Catalytic activity/Vol] 138 U/L High 38 - 126 U/L [facility] ALT [Catalytic activity/Vol] 28 U/L 0 - 49 U/L [facility] Anion gap [Moles/Vol] 10 mmol/L 3 - 13 mmol/L [facility] AST [Catalytic activity/Vol] 31 U/L 15 - 46 U/L [facility] Bilirubin [Mass/Vol] 0.8 mg/dL 0.2 - 1 .3 mg/dL [facility] Calcium [Mass/Vol] 9.3 mg/dL 8.4 - 10. 4 mg/dL [facility] Chloride [Moles/Vol] 100 mmol/L 98 - 10 7 mmol/L [facility] CO2 [Moles/Vol] 28 mmol/L 22 - 30 mmol/L [facility] Creatinine [Mass/Vol] 1.13 mg/dL 0.66 - 1.25 mg/dL [facility] GFR/1.73 sq M.predicted MDRD (S/P/Bld) [Vol rate/Area] 77.2 mL/min/{1.73_m2} - PINF [facility] Comment on above: Calculation based on the Chronic Kidney Disease Epidemiology Collaboration (CKD-EPI) equation refit without adjustment for race Glucose [Mass/Vol] 97 mg/dL 70 - 100 mg/dL [facility] Interpretation and review of laboratory results Abnormal [facility] Potassium [Moles/Vol] 4.0 mmol/L 3.5 - 5.1 mmol/L [facility] Protein [Mass/Vol] 7.2 g/dL 6.3 - 8.2 g/dL [facility] Sodium [Moles/Vol] 138 mmol/L 135 - 145 mmol/L [facility] Urea nitrogen [Mass/Vol] 7 mg/dL Low 9 - 20 mg/dL [facility] Laboratory - Chemistry and C hemistry - challengeon 05-30-2023 Lipase [Catalytic activity/Vol] 58 U/L 23 - 300 U/L [facility] Lipase [Catalytic activity/V ol]on 05-30-2023 Interpretation and review of laboratory results Normal [facility] No Panel Informationon 05-30 [facility] Basophil percentageOrdered B y: Antonella Marrero on 05-25-2023 Chloride [Moles/Vol] 107 mmol/L 98-107 [facility] Glucose [Mass/Vol] 90 mg/dL 74-106 [facility] Potassium [Moles/Vol] 3.2 mmol/L 3.5-5.1 [facility] Sodium [Moles/Vol] 139 mmol/L 136-145 [facility] WBC (Bld) [#/Vol] 6.7 10*3/uL 4.4-11.0 [facility] Blood erythrocytes count (nu mber/volume)Ordered By: Antonella Marrero on 05-25-2023 RBC (Bld) [#/Vol] 4.05 10*6/uL 4.6-6.2 [facility] Blood hemoglobin measurement (mass/volume)Ordered By: Antonella Marrero on 05-25-2023 Hemoglobin (Bld) [Mass/Vol] 12.7 g/dL 13.0-16.5 [facility] Blood platelet mean volumeOr dered By: Antonella Marrero on 05-25-2023 Platelet mean volume (Bld) [Entitic vol] 9.0 fL 6.2-12.0 [facility] Determination of erythrocyte mean corpuscular volume (MCV)Ordered By: Antonella Marrero on 05-25-2023 MCV (RBC) [Entitic vol] 91.6 fL 80-94 [facility] Hematocrit Auto (Bld) [Volum e fraction]Ordered By: Antonella Marrero on 05-25-2023 Hematocrit (Bld) [Volume fraction] 37.1 % 40-54 [facility] Laboratory - Chemistry and C hemistry - challengeOrdered By: Antonella Marrero on 05-25-2023 CO2 [Moles/Vol] 27.0 mmol/L 21.0-32.0 [facility] Urea nitrogen/Creatinine [Mass ratio] 9.2 mg/mg 10-20 [facility] Laboratory - Hematology and Cell countsOrdered By: Antonella Marrero on 05-25-2023 Erythrocyte distribution width (RBC) [Entitic vol] 45.7 fL 35.1-43.9 [facility] Erythrocyte distribution width (RBC) [Ratio] 13.5 % 11.6-14.6 [facility] MCH (RBC) [Entitic mass] 31.4 pg 27.0-32.0 [facility] MCHC Auto (RBC) [Mass/Vol]Or dered By: Antonella Marrero on 05-25-2023 MCHC (RBC) [Mass/Vol] 34.2 g/dL 32-36 [facility] No Panel InformationOrdered By: Antonella Marrero on 05-25-2023 Estimated GFR (MDRD) Amer 81 mL/min >60 [facility] Comment on above: GFR Calc Estimated GFR (MDRD) Non-Af Amer 67 mL/min >60 [facility] Comment on above: Non- GFR Calc Valproic Acid (Depakene) Level 96 ug/mL 50-100 [facility] Platelets bldOrdered By: Nidhi Marrero on 05-25-2023 Platelets (Bld) [#/Vol] 193 10*3/uL 150-450 [facility] Serum or plasma calcium zakiya urement (mass/volume)Ordered By: Antonella Marrero on 05-25-2023 Calcium [Mass/Vol] 8.5 mg/dL 8.5-10.1 [facility] Serum or plasma creatinine m easurement (mass/volume)Ordered By: Antonella Marrero on 05-25-2023 Creatinine [Mass/Vol] 1.20 mg/dL 0.70-1.30 [facility] Comment on above: The validity of the calculated GFR & GFRAA in patients over 70 years has not been determined. Clinical correlation is essential. Serum or plasma urea nitroge n measurement (mass/volume)Ordered By: Antonella Marrero on 05-25-2023 Urea nitrogen [Mass/Vol] 11 mg/dL 7-18 [facility] Thin prep Papanicolaou smear with manual screeningOrdered By: Antonella Marrero on 05-25-2023 Thin prep Papanicolaou smear with manual screening 5 5-15 [facility] CRP [Mass/Vol]on 05-21-2023 Interpretation and review of laboratory results Abnormal [facility] Laboratory - Chemistry and C hemistry - challengeon 05-21-2023 Procalcitonin [Mass/Vol] 0.12 ng/mL High 0.00 - 0.09 ng/mL [facility] CRP [Mass/Vol] 63.7 mg/L High NINF - 10.0 mg/L [facility] No Panel Informationon 05-21 Radiology Study observation (narrative) [facility] Procalcitonin [Mass/Vol]on 1 07-22-2022 Interpretation and review of laboratory results Abnormal [facility] PCT <0.50 = Low risk of severe sepsis and/or septic shock. PCT >2.00 = High risk of severe sepsis and/or septic shock. [facility] XR Hip - right 3 Viewson No acute osseous abnormality identified. Degenerative change and osteopenia. Report Dictated on Electronically Signed By: Judah Thompson MD Electronically Signed Date/Time: 05/21/2023 3:47 PM EST [facility] Patient Name: KARI MUHAMMAD : 1970 Exam Date/Time: 05/21/2023 15:50 Procedure: XR HIP 2 OR 3 VW RIGHT Ordering Provider: ALCANTARA LISA Reason For Exam: Hip pain, chronic, no prior imaging EXAMINATION: XR right hip. EXAM DATE & TIME: 05/21/2023 3:44 PM EST INDICATION: Hip pain, chronic, no prior imaging ADDITIONAL INFORMATION: 52-year-old male with chronic right hip pain presents for evaluation COMPARISON: None TECHNIQUE: AP and frog-leg lateral views of the right hip were obtained. AP view encompasses the entirety of the pelvis per FINDINGS: No acute fracture or traumatic dislocation is identified. A remote deformity of the inferior left pubic ramus is seen. There is mild bilateral degenerative hip osteoarthritis as evidenced by joint space narrowing and subchondral sclerosis. Lumbosacral fusion hardware is seen. The bones are osteopenic. Phleboliths project over the pelvis. A surgical clip is also seen projecting over the pelvis. [facility] Judah Thompson MD - 05/21/2023 Patient Name: KARI ALLAN : 1970 Exam Date/Time: 05/21/2023 15:50 Procedure: XR HIP 2 OR 3 VW RIGHT Ordering Provider: ALCANTARA LISA Reason For Exam: Hip pain, chronic, no prior imaging EXAMINATION: XR right hip. EXAM DATE & TIME: 05/21/2023 3:44 PM EST INDICATION: Hip pain, chronic, no prior imaging ADDITIONAL INFORMATION: 52-year-old male with chronic right hip pain presents for evaluation COMPARISON: None TECHNIQUE: AP and frog-leg lateral views of the right hip were obtained. AP view encompasses the entirety of the pelvis per FINDINGS: No acute fracture or traumatic dislocation is identified. A remote deformity of the inferior left pubic ramus is seen. There is mild bilateral degenerative hip osteoarthritis as evidenced by joint space narrowing and subchondral sclerosis. Lumbosacral fusion hardware is seen. The bones are osteopenic. Phleboliths project over the pelvis. A surgical clip is also seen projecting over the pelvis. IMPRESSION: No acute osseous abnormality identified. Degenerative change and osteopenia. Report Dictated on Electronically Signed By: Judah Thompson MD Electronically Signed Date/Time: 05/21/2023 3:47 PM EST [facility] XR Knee - left 1 or 2 Viewso n 05-21-2023 Trace suprapatellar effusion without an acute osseous abnormality identified. Soft tissue swelling and degenerative change. Report Dictated on Electronically Signed By: Judah Thompson MD Electronically Signed Date/Time: 05/21/2023 3:50 PM EST [facility] Patient Name: KARI MUHAMMAD : 1970 Exam Date/Time: 05/21/2023 15:49 Procedure: XR KNEE 1-2 VIEWS LEFT Ordering Provider: ALCANTARA LISA Reason For Exam: KNEE PAIN EXAMINATION: XR left knee. EXAM DATE & TIME: 05/21/2023 3:49 PM EST INDICATION: KNEE PAIN ADDITIONAL INFORMATION: 52-year-old male with left knee pain presents for evaluation COMPARISON: None TECHNIQUE: AP and lateral views of the left knee were obtained. FINDINGS: No acute fracture or traumatic dislocations identified. There is a trace suprapatellar effusion. There is mild medial femorotibial joint space narrowing. The bones are slightly osteopenic. Soft tissue swelling surrounds the knee. No radiopaque foreign body. [facility] Judah Thompson MD - 05/21/2023 Patient Name: KARI ALLAN : 1970 Exam Date/Time: 05/21/2023 15:49 Procedure: XR KNEE 1-2 VIEWS LEFT Ordering Provider: ALCANTARA LISA Reason For Exam: KNEE PAIN EXAMINATION: XR left knee. EXAM DATE & TIME: 05/21/2023 3:49 PM EST INDICATION: KNEE PAIN ADDITIONAL INFORMATION: 52-year-old male with left knee pain presents for evaluation COMPARISON: None TECHNIQUE: AP and lateral views of the left knee were obtained. FINDINGS: No acute fracture or traumatic dislocations identified. There is a trace suprapatellar effusion. There is mild medial femorotibial joint space narrowing. The bones are slightly osteopenic. Soft tissue swelling surrounds the knee. No radiopaque foreign body. IMPRESSION: Trace suprapatellar effusion without an acute osseous abnormality identified. Soft tissue swelling and degenerative change. Report Dictated on Electronically Signed By: Judah Thompson MD Electronically Signed Date/Time: 05/21/2023 3:50 PM EST [facility] Study observation (narrative) [facility] XR Knee - left 1 or 2 ViewsO rdered By: Judah Thompson on 05-21-2023 [facility] Work Phone: XR Lumbar spine 2 or 3 Views on 05-21-2023 1. Status post L4-S1 posterior spinal fusion without an acute fracture or traumatic subluxation identified. 2. Grade 1 anterolisthesis of L5 on S1. Report Dictated on Electronically Signed By: Judah Thompson MD Electronically Signed Date/Time: 05/21/2023 3:45 PM EST [facility] Patient Name: KARI MUHAMMAD : 1970 Exam Date/Time: 05/21/2023 15:50 Procedure: XR LUMBAR SPINE 2-3 VIEWS Ordering Provider: ALCANTARA LISA Reason For Exam: Low back pain, increased fracture risk EXAMINATION: XR lumbar spine. EXAM DATE & TIME: 05/21/2023 3:44 PM EST INDICATION: Low back pain, increased fracture risk ADDITIONAL INFORMATION: 52-year-old male with low back pain presents for evaluation COMPARISON: None TECHNIQUE: AP, lateral and coned-down lumbosacral views of the lumbar spine were obtained. FINDINGS: No acute fracture or traumatic subluxation is identified. There are five nonrib-bearing lumbar vertebral bodies. The patient is status post posterior spinal fusion of L4-S1. No perihardware lucency to suggest hardware failure. There is grade 1 anterolisthesis of L5 on S1. Degenerative endplate spurring is seen throughout the lumbar spine. The bones are slightly osteopenic. The bowel gas pattern is nonspecific. A surgical clip projects over the pelvis. [facility] Judah Thompson MD - 05/21/2023 Patient Name: KARI ALLAN : 1970 Exam Date/Time: 05/21/2023 15:50 Procedure: XR LUMBAR SPINE 2-3 VIEWS Ordering Provider: ALCANTARA LISA Reason For Exam: Low back pain, increased fracture risk EXAMINATION: XR lumbar spine. EXAM DATE & TIME: 05/21/2023 3:44 PM EST INDICATION: Low back pain, increased fracture risk ADDITIONAL INFORMATION: 52-year-old male with low back pain presents for evaluation COMPARISON: None TECHNIQUE: AP, lateral and coned-down lumbosacral views of the lumbar spine were obtained. FINDINGS: No acute fracture or traumatic subluxation is identified. There are five nonrib-bearing lumbar vertebral bodies. The patient is status post posterior spinal fusion of L4-S1. No perihardware lucency to suggest hardware failure. There is grade 1 anterolisthesis of L5 on S1. Degenerative endplate spurring is seen throughout the lumbar spine. The bones are slightly osteopenic. The bowel gas pattern is nonspecific. A surgical clip projects over the pelvis. IMPRESSION: 1. Status post L4-S1 posterior spinal fusion without an acute fracture or traumatic subluxation identified. 2. Grade 1 anterolisthesis of L5 on S1. Report Dictated on Electronically Signed By: Judah Thompson MD Electronically Signed Date/Time: 05/21/2023 3:45 PM EST [facility] Basic metabolic 1998 panelon 05-20-2023 Anion gap [Moles/Vol] 11 mmol/L 3 - 13 mmol/L [facility] Calcium [Mass/Vol] 8.9 mg/dL 8.4 - 10. 4 mg/dL [facility] Chloride [Moles/Vol] 99 mmol/L 98 - 10 7 mmol/L [facility] CO2 [Moles/Vol] 25 mmol/L 22 - 30 mmol/L [facility] Creatinine [Mass/Vol] 1.39 mg/dL High 0.66 - 1.25 mg/dL [facility] GFR/1.73 sq M.predicted MDRD (S/P/Bld) [Vol rate/Area] 60.2 mL/min/{1.73_m2} - PINF [facility] Comment on above: Calculation based on the Chronic Kidney Disease Epidemiology Collaboration (CKD-EPI) equation refit without adjustment for race Glucose [Mass/Vol] 118 mg/dL High 70 - 100 mg/dL [facility] Potassium [Moles/Vol] 4.8 mmol/L 3.5 - 5.1 mmol/L [facility] Sodium [Moles/Vol] 134 mmol/L Low 135 - 145 mmol/L [facility] Urea nitrogen [Mass/Vol] 14 mg/dL 9 - 20 mg/dL [facility] CRP [Mass/Vol]on 05-20-2023 Interpretation and review of laboratory results Abnormal [facility] CT Head WO contraston [address] evidence of an acute intracranial abnormality. Mild generalized parenchymal volume loss. Nonspecific mucosal thickening of the paranasal sinuses as discussed. Report Dictated on Electronically Signed By: Tommie Person MD Electronically Signed Date/Time: 05/20/2023 12:58 AM [facility]AD [facility] 1970 [id number] Exam Date/Time: 05/20/2023 00:22 Procedure: CT HEAD WO IV CONTRAST Ordering Provider: LANDEROS JOSEPH Reason For Exam: Head trauma, moderate-severe EXAMINATION: CT HEAD WO IV CONTRAST HISTORY: Head trauma, moderate-severe fall, pain. TECHNIQUE: CT head without contrast. Dose reduction was employed with automated exposure control. COMPARISON: Head CT 02/19/2017 RESULT: Acute change: No evidence of an acute intracranial process. Hemorrhage: No evidence of acute intracranial hemorrhage. Mass Lesion / Mass Effect: No evidence of an intracranial mass, extra-axial fluid collection, or significant localized mass effect. Chronic change: None apparent. Parenchyma: There is mild generalized volume loss. Ventricles: Commensurate with volume loss. Other: Moderate mucosal thickening of the left maxillary sinus. Mild mucosal thickening in the right maxillary sinus. Scattered because of thickening of the ethmoid air cells. No calvarial fracture. The calvarium, skull base, mastoids, orbits and extracranial soft tissues are unremarkable. [facility] Tommie Person MD - 05/20/2023 [facility] 1970 [id number] Exam Date/Time: 05/20/2023 00:22 Procedure: CT HEAD WO IV CONTRAST Ordering Provider: LANDEROS JOSEPH Reason For Exam: Head trauma, moderate-severe EXAMINATION: CT HEAD WO IV CONTRAST HISTORY: Head trauma, moderate-severe fall, pain. TECHNIQUE: CT head without contrast. Dose reduction was employed with automated exposure control. COMPARISON: Head CT 02/19/2017 RESULT: Acute change: No evidence of an acute intracranial process. Hemorrhage: No evidence of acute intracranial hemorrhage. Mass Lesion / Mass Effect: No evidence of an intracranial mass, extra-axial fluid collection, or significant localized mass effect. Chronic change: None apparent. Parenchyma: There is mild generalized volume loss. Ventricles: Commensurate with volume loss. Other: Moderate mucosal thickening of the left maxillary sinus. Mild mucosal thickening in the right maxillary sinus. Scattered because of thickening of the ethmoid air cells. No calvarial fracture. The calvarium, skull base, mastoids, orbits and extracranial soft tissues are unremarkable. IMPRESSION: No CT evidence of an acute intracranial abnormality. Mild generalized parenchymal volume loss. Nonspecific mucosal thickening of the paranasal sinuses as discussed. Report Dictated on Electronically Signed By: Tommie Person MD Electronically Signed Date/Time: 05/20/2023 12:58 AM EST [facility] Study observation (narrative) [facility] CT Head WO contrastOrdered B y: Tommie Person on 05-20-2023 [facility] Work Phone: Hepatic function 2000 panelo n 05-20-2023 Albumin [Mass/Vol] 4.4 g/dL 3.5 - 5.0 g/dL [facility] ALP [Catalytic activity/Vol] 86 U/L 38 - 126 U/L [facility] ALT [Catalytic activity/Vol] 51 U/L High 0 - 49 U/L [facility] AST [Catalytic activity/Vol] 92 U/L High 15 - 46 U/L [facility] Bilirubin [Mass/Vol] 1.2 mg/dL 0.2 - 1 .3 mg/dL [facility] Bilirubin.conjugated [Mass/Vol] 0.0 mg/dL 0.0 - 0.3 mg/dL [facility] Protein [Mass/Vol] 8.0 g/dL 6.3 - 8.2 g/dL [facility] Laboratory - Chemistry and C hemistry - challengeon 05-20-2023 CRP [Mass/Vol] 71.7 mg/L High NINF - 10.0 mg/L [facility] Lactate [Moles/Vol] 1.4 mmol/L 0.7 - 2. 0 mmol/L [facility] Lactate [Moles/Vol] 2.6 mmol/L High 0.7 - 2. 0 mmol/L [facility] Lactate [Moles/Vol] 2.4 mmol/L High 0.7 - 2. 0 mmol/L [facility] Troponin I.cardiac [Mass/Vol] ng/mL NINF - 0.034 ng/mL [facility] Natriuretic peptide B [Mass/ Vol]on 05-20-2023 Natriuretic peptide B (Bld) [Mass/Vol] 43 pg/mL <20 - 300 [facility] No Panel Informationon 05-20 Interpretation and review of laboratory results Normal [facility] Sinus tachycardia Consider right ventricular hypertrophy Electronically Signed On 05-20-2023 06:51:32 EST by Franklin Taylor, - 05/20/2023 IMPRESSION: Sinus tachycardia Consider right ventricular hypertrophy Electronically Signed On 05-20-2023 06:51:32 EST by Franklin Landeros [facility] Interpretation and review of laboratory results Abnormal [facility] Interpretation and review of laboratory results Abnormal [facility] Interpretation and review of laboratory results Normal [facility] Interpretation and review of laboratory results Abnormal [facility] Troponin I.cardiac [Mass/Vol ]on 05-20-2023 Patients with high l evels of Biotin oral intake (ie >5 mg/day) may have falsely decreased Troponin levels. [facility] Urinalysis complete panel (U )Ordered By: Page Mayberry on 05-20-2023 Bacteria LM.HPF (Urine sed) [#/Area] Few Abnormal Negative /HPF [facility] Bilirubin Ql (U) Negative Negative mg/dL [facility] Clarity (U) Clear Clear [facility] Color (U) Yellow Lt. Yellow [facility] Epithelial cells.squamous LM.HPF (Urine sed) [#/Area] 0-2 [facility] Glucose Ql (U) Normal Normal (<70) mg/dL [facility] Hemoglobin Ql (U) Negative Negative mg/dL [facility] Interpretation and review of laboratory results Abnormal [facility] Ketones (U) [Mass/Vol] 20 mg/dL Abnormal Negative [facility] Leukocyte esterase Test strip Ql (U) Negative Negative Mo/uL [facility] Nitrite Ql (U) Negative Negative [facility] pH (U) 6.5 [pH] 5.0 - 8.0 pH [facility] Protein (U) [Mass/Vol] 30 mg/dL Abnormal Negative [facility] RBC LM.HPF (Urine sed) [#/Area] Negative [facility] Specific gravity (U) [Rel density] 1.042 High 1.005 - 1.030 [facility] Urobilinogen (U) [Mass/Vol] 4 mg/dL Abnormal Normal (0-1) [facility] Volume, Urine 8-12 mL [facility] WBC LM.HPF (Urine sed) [#/Area] 0-2 [facility] XR Chest Single viewon 05-20 Lines, tubes, and devices: None. Lungs and pleura: No consolidation. No pleural effusion or pneumothorax. Cardiomediastinal silhouette: Stable normal cardiomediastinal silhouette. Other: Bony thorax appears grossly intact. Report Dictated on Electronically Signed By: Tommie Person MD Electronically Signed Date/Time: 05/20/2023 3:17 AM [facility] Patient Name: KARI MUHAMMAD : 1970 Exam Date/Time: 05/20/2023 01:58 Procedure: XR CHEST 1 VIEW Ordering Provider: LANDEROS JOSEPH Reason For Exam: DYSPNEA EXAMINATION: CHEST RADIOGRAPH (SINGLE VIEW AP OR PA) Clinical History: DYSPNEA Comparison: Radiograph 11/14/2021 RESULT: See impression [facility] Tommie Person MD - 05/20/2023 [facility] Name: [facility] ALL[facility] 1970 [id number] Exam Date/Time: 05/20/2023 01:58 Procedure: XR CHEST 1 VIEW Ordering Provider: LANDEROS JOSEPH Reason For Exam: DYSPNEA EXAMINATION: CHEST RADIOGRAPH (SINGLE VIEW AP OR PA) Clinical History: DYSPNEA Comparison: Radiograph 11/14/2021 RESULT: See impression IMPRESSION: Lines, tubes, and devices: None. Lungs and pleura: No consolidation. No pleural effusion or pneumothorax. Cardiomediastinal silhouette: Stable normal cardiomediastinal silhouette. Other: Bony thorax appears grossly intact. Report Dictated on Electronically Signed By: Tommie Person MD Electronically Signed Date/Time: 05/20/2023 3:17 AM EST [facility] Radiology Study observation (narrative) [facility] XR Chest Single viewOrdered By: Tommie Person on 05-20-2023 [facility] Work Phone: CBC panel Auto (Bld)on 05-19 Erythrocyte distribution width (RBC) [Ratio] 13.4 % 11.5 - 14.5 % [facility] Hematocrit (Bld) [Volume fraction] 45.8 % 40.0 - 52.0 % [facility] Hemoglobin (Bld) [Mass/Vol] 15.9 g/dL 13.0 - 18.0 g/dL [facility] Interpretation and review of laboratory results Normal [facility] MCH (RBC) [Entitic mass] 31.5 pg 26.0 - 34.0 pg [facility] MCHC (RBC) [Mass/Vol] 34.7 % 32.0 - 36.0 % [facility] MCV (RBC) [Entitic vol] 90.9 fL 80.0 - 98.0 fL [facility] Platelet mean volume (Bld) [Entitic vol] 9.0 fL 7.4 - 12.4 fL [facility] Comment on above: MPV is a calculated measurement using platelet volume ratio Platelets (Bld) [#/Vol] 157 10*3/uL 140 - 440 10*3/uL [facility] RBC (Bld) [#/Vol] 5.04 10*6/uL 4.40 - 5.90 10*6/uL [facility] WBC (Bld) [#/Vol] 8.5 10*3/uL 3.6 - 10.7 10*3/uL [facility] Laboratory - Microbiology an d Antimicrobial susceptibilityon 05-19-2023 FLUAV RNA LASHA+probe Ql (Resp) Not detected Not Detected [facility] FLUBV RNA LASHA+probe Ql (Resp) Not detected Not Detected [facility] RSV RNA LASHA+probe Ql (Resp) Not detected Not Detected [facility] SARS-CoV-2 (COVID-19) RNA LASHA+probe Ql (Resp) Detected Abnormal Not Detected [facility] SARS-CoV-2 (COVID-19) RNA LASHA+probe Ql (Unsp spec) Methodology: real-time, RT-PCR The SARS-CoV-2, Flu A/B, and RSV Combo assay is intended for in vitro diagnostic use under the FDA Emergency Use Authorization (EUA). This test has not been FDA cleared or approved. In compliance with this authorization, please visit www.fda.gov/media/316781/do wnload or www.fda.gov/media/481509/do wnload to access the applicable information sheets. [facility] SARS-CoV-2, Flu A/B, and RSV Comboon 05-19-2023 Interpretation and review of laboratory results Abnormal [facility] US Heart TransthoracicOrdere d By: Onel Clemons on 05-17-2023 Ascending Aorta 3.1 cm [facility] Work Phone: Ascending Aorta Index 1.41 cm/m2 [facility] Work Phone: AV Area by Peak Velocity 2.8 cm2 [facility] Work Phone: AV Peak Gradient 7 mmHg [facility] Work Phone: AV Peak Velocity 1.3 m/s [facility] Work Phone: AV Velocity Ratio 0.69 [facility] Work Phone: STEPHANIE/BSA Peak Velocity 1.3 cm2/m2 [facility] Work Phone: E/E' Lateral 9.00 [facility] Work Phone: E/E' Ratio (Averaged) 9.75 [facility] Work Phone: E/E' Septal 10.50 [facility] Work Phone: EF BP 71 % 55 - 100 % [facility] Work Phone: Fractional Shortening 2D 59 % 28 - 44 % [facility] Work Phone: Interpretation and review of laboratory results Abnormal [facility] Work Phone: IVSd 1.3 cm Abnormal 0.6 - 1.0 cm [facility] Work Phone: LA Diameter 3.5 cm [facility] Work Phone: LA Size Index 1.59 cm/m2 [facility] Work Phone: LA Volume 2C 29 mL 18 - 58 mL [facility] Work Phone: LA Volume 4C 23 mL 18 - 58 mL [facility] Work Phone: LA Volume A/L 27 mL [facility] Work Phone: LA Volume Index 2C 13 mL/m2 Abnormal 16 - 34 mL/m2 [facility] Work Phone: LA Volume Index 4C 10 mL/m2 Abnormal 16 - 34 mL/m2 [facility] Work Phone: LA Volume Index A/L 12 mL/m2 16 - 34 mL/m2 [facility] Work Phone: LV E' Lateral Velocity 7 cm/s [facility] Work Phone: LV E' Septal Velocity 6 cm/s [facility] Work Phone: LV EDV A2C 59 mL [facility] Work Phone: LV EDV A4C 66 mL [facility] Work Phone: LV EDV BP 62 mL Abnormal 67 - 155 mL [facility] Work Phone: LV EDV Index A2C 27 mL/m2 [facility] Work Phone: LV EDV Index A4C 30 mL/m2 [facility] Work Phone: LV EDV Index BP 28 mL/m2 [facility] Work Phone: LV Ejection Fraction A2C 72 % [facility] Work Phone: LV Ejection Fraction A4C 71 % [facility] Work Phone: LV ESV A2C 16 mL [facility] Work Phone: LV ESV A4C 19 mL [employer] Phone: LV ESV BP 18 mL Abnormal 22 - 58 mL [employer] Phone: LV ESV Index A2C 7 mL/m2 [facility] Work Phone: LV ESV Index A4C 9 mL/m2 [employer] Phone: LV ESV Index BP 8 mL/m2 [employer] Phone: LV Mass 2D 104.3 g 88 - 224 g [employer] Phone: LV Mass 2D Index 47.4 g/m2 Abnormal 49 - 115 g/m2 [employer] Phone: LV RWT Ratio 0.56 [facility] Work Phone: LVIDd 3.2 cm Abnormal 4.2 - 5.9 cm [facility] Work Phone: LVIDd Index 1.45 cm/m2 [facility] Work Phone: LVIDs 1.3 cm [facility] Work Phone: LVIDs Index 0.59 cm/m2 [employer] Phone: LVOT Area 3.8 cm2 [facility] Work Phone: LVOT Cardiac Output 4.4 liter/mi nu te [facility] Work Phone: LVOT Diameter 2.2 cm [employer] Phone: LVOT Mean Gradient 2 mmHg [employer] Phone: LVOT Peak Gradient 3 mmHg [employer] Phone: LVOT Peak Velocity 0.9 m/s [facility] Phone: LVOT Stroke Volume Index 19.0 mL/m2 [facility] Phone: LVOT SV 41.8 ml [employer] Phone: LVOT VTI 11.0 cm [employer] Phone: LVPWd 0.9 cm 0.6 - 1.0 cm [facility] Phone: MV A Velocity 0.86 m/s [facility] Phone: MV E Velocity 0.63 m/s [facility] Phone: MV E Wave Deceleration Time 164.1 ms [facility] Phone: MV E/A 0.73 [facility] Phone: PV Max Velocity 0.9 m/s [facility] Phone: PV Peak Gradient 3 mmHg [employer] Phone: RV Basal Dimension 4.2 cm [facility] Phone: RV Free Wall Peak S' 12 cm/s [facility] [employer] Phone: RV Mid Dimension 3.7 cm [facility] Phone: TAPSE 1.9 cm 1.7 cm [employer] Phone: [facility] Phone: US Heart Transthoracicon Left Ventricle: Left ventricle is smaller than normal. Mild septal thickening. Hyperdynamic left ventricular systolic function. EF by 2D Simpsons Biplane is 71%. Normal wall motion. Right Ventricle: Right ventricle is dilated. Moderately reduced systolic function.( image 109 with contrast) No significant valvular abnormalities. Technically difficult study. Left Ventricle Left ventricle is smaller than normal. Mild septal thickening. Hyperdynamic left ventricular systolic function. EF by 2D Simpsons Biplane is 71%. Normal wall motion. Right Ventricle Right ventricle is dilated. Moderately reduced systolic function.( image 109 with contrast) Left Atrium Left atrium size is normal. LA Vol Index A/L is 12 mL/m2. Normal flow patterns in the pulmonary veins. Right Atrium Right atrium size is normal. IVC/SVC IVC was not well visualized. Mitral Valve Valve structure is normal. No regurgitation. No stenosis noted. Tricuspid Valve Valve structure is normal. No regurgitation. Unable to assess RVSP due to insignificant tricuspid regurgitation. Aortic Valve Trileaflet. No cusp thickening. No cusp calcification. No regurgitation. No stenosis. Pulmonic Valve The pulmonic valve visualization is suboptimal but appears to be functioning normally. Valve structure is normal. Trace regurgitation. Ascending Aorta Normal sized sinuses of Valsalva and ascending aorta. Pericardium Evidence of prominent epicardial fat. No pericardial effusion. Septum No interatrial shunt visualized on color Doppler. Study Details Image quality: adequate. Heart rate: 115 bpm. Blood pressure: 125/85 mmHg. The underlying ECG rhythm was sinus tachycardia. Ultrasound enhancement agent was given to enhance imaging. Echo Additional Conclusions No significant valvular abnormalities.Technically difficult study. CV CPACS ECG 12 lead - CLINIC PERFORM EDon 04-27-2023 Sinus Tachycardia WITHIN NORMAL LIMITS [facility] Basophil percentageOrdered B y: Antonella Besslarry on 04-05-2023 Bilirubin [Mass/Vol] 0.40 mg/dL 0.20-1.00 [facility] Comment on above: For patients on eltr ombopag therapy, use of Dimension [place] TBIL is not recommended. Chloride [Moles/Vol] 104 mmol/L 98-107 [facility] Cholesterol [Mass/Vol] 238 mg/dL <200 [facility] Comment on above: <200 mg/dL Desirable 200-240 mg/dL Borderline >240 mg/dL High Risk Glucose [Mass/Vol] 106 mg/dL 74-106 [facility] Comment on above: Fasting Glucose resu lt from 100 to 125 mg/dL suggests IMPAIRED HOMEOSTASIS per A.D.A. criteria. Potassium [Moles/Vol] 3.9 mmol/L 3.5-5.1 [facility] Protein [Mass/Vol] 7.1 g/dL 6.4-8.2 [facility] Sodium [Moles/Vol] 139 mmol/L 136-145 [facility] Triglyceride [Mass/Vol] 241 mg/dL <199 [facility] Comment on above: The drugs N-Acetylcy steine and Metamizole may falsely depress this assay.Serum Triglycerides Reference Interval Normal <150 mg/dL Borderline high 150 - 199 mg/dL High 200 - 499 mg/dL Very High > or = 500 mg/dL WBC (Bld) [#/Vol] 7.2 10*3/uL 4.4-11.0 [facility] Blood erythrocytes count (nu mber/volume)Ordered By: Antonella Marrero on 04-05-2023 RBC (Bld) [#/Vol] 4.92 10*6/uL 4.6-6.2 [facility] Blood hemoglobin measurement (mass/volume)Ordered By: Antonella Marrero on 04-05-2023 Hemoglobin (Bld) [Mass/Vol] 15.5 g/dL 13.0-16.5 [facility] Blood platelet mean volumeOr dered By: Antonella Marrero on 04-05-2023 Platelet mean volume (Bld) [Entitic vol] 9.3 fL 6.2-12.0 [facility] Determination of erythrocyte mean corpuscular volume (MCV)Ordered By: Antonella Marrero on 04-05-2023 MCV (RBC) [Entitic vol] 94.1 fL 80-94 [facility] Hematocrit Auto (Bld) [Volum e fraction]Ordered By: Antonella Marrero on 04-05-2023 Hematocrit (Bld) [Volume fraction] 46.3 % 40-54 [facility] Laboratory - Chemistry and C hemistry - challengeOrdered By: Antonella Marrero on 04-05-2023 ALP [Catalytic activity/Vol] 85 U/L 45-117 [facility] ALT [Catalytic activity/Vol] 30 U/L 16-61 [facility] CO2 [Moles/Vol] 26.0 mmol/L 21.0-32.0 [facility] Globulin (S) [Mass/Vol] 4.1 g/dL 2.2-4.2 [facility] Urea nitrogen/Creatinine [Mass ratio] 5.3 mg/mg 10-20 [facility] Laboratory - Hematology and Cell countsOrdered By: Antonella Marrero on 04-05-2023 Erythrocyte distribution width (RBC) [Entitic vol] 45.2 fL 35.1-43.9 [facility] Erythrocyte distribution width (RBC) [Ratio] 13.2 % 11.6-14.6 [facility] MCH (RBC) [Entitic mass] 31.5 pg 27.0-32.0 [facility] MCHC Auto (RBC) [Mass/Vol]Or dered By: Antonella Marrero on 04-05-2023 MCHC (RBC) [Mass/Vol] 33.5 g/dL 32-36 [facility] No Panel InformationOrdered By: Antonella Marrero on 04-05-2023 Estimated GFR (MDRD) Amer 86 mL/min >60 [facility] Comment on above: GFR Calc Estimated GFR (MDRD) Non-Af Amer 71 mL/min >60 [facility] Comment on above: Non- GFR Calc Levetiracetam (Keppra) Level 18.1 ug/mL 10.0-40.0 [facility] Comment on above: Performed at: [address] [id number] Director: Serena Merida MD, Phone: [phone] Valproic Acid (Depakene) Level 82 ug/mL 50-100 [facility] Platelets bldOrdered By: Nidhi Marrero on 04-05-2023 Platelets (Bld) [#/Vol] 200 10*3/uL 150-450 [facility] Serum or plasma albumin zakiya urement (mass/volume)Ordered By: Antonella Marrero on 04-05-2023 Albumin [Mass/Vol] 3.0 g/dL 3.2-5.0 [facility] Serum or plasma albumin/glob ulin mass ratioOrdered By: Antonella Marrero on 04-05-2023 Albumin/Globulin [Mass ratio] 0.7 {ratio} 0.9-2.4 [facility] Serum or plasma calcium zakiya urement (mass/volume)Ordered By: Antonella Marrero on 04-05-2023 Calcium [Mass/Vol] 8.8 mg/dL 8.5-10.1 [facility] Serum or plasma cholesterol in HDL measurement (mass/volume)Ordered By: Antonella Marrero on 04-05-2023 Cholesterol in HDL [Mass/Vol] 39 mg/dL >40 [facility] Comment on above: The drugs N-Acetylcy steine and Metamizole may falsely depress this assay. Reference Range HDL <40 mg/dL Low HDL Cholesterol HDL >or= 60 mg/dL High HDL Cholesterol Serum or plasma cholesterol in VLDL measurement (mass/volume)Ordered By: Antonella Marrero on 04-05-2023 Cholesterol in VLDL [Mass/Vol] 48 mg/dL 5-40 [facility] Serum or plasma creatinine m easurement (mass/volume)Ordered By: Antonella Marrero on 04-05-2023 Creatinine [Mass/Vol] 1.14 mg/dL 0.70-1.30 [facility] Comment on above: The validity of the calculated GFR & GFRAA in patients over 70 years has not been determined. Clinical correlation is essential. Serum or plasma low density lipoprotein (LDL) cholesterol measurement (mass/volume)Ordered By: Antonella Marrero on 04-05-2023 Cholesterol in LDL [Mass/Vol] 151 mg/dL 0-130 [facility] Serum or plasma urea nitroge n measurement (mass/volume)Ordered By: Antonella Marrero on 04-05-2023 Urea nitrogen [Mass/Vol] 6 mg/dL 7-18 [facility] Thin prep Papanicolaou smear with manual screeningOrdered By: Antonella Marrero on 04-05-2023 Thin prep Papanicolaou smear with manual screening 17 U/L 15-37 [facility] Thin prep Papanicolaou smear with manual screening 9 5-15 [facility] No Panel InformationOrdered By: Antonella Marrero on 02-17-2023 Vitamin D 25-Hydroxy 95.1 ng/mL [facility] Comment on above: Vitamin D 25(OH) Sta tus Range Deficiency <20 ng/mL (50nmol/L) Insufficiency 20 - 30 ng/mL (50 - 75 nmol/L) Sufficiency 30 - 100 ng/mL (75 - 250 nmol/L) Toxicity >100 ng/mL (>250 nmol/L) Basophil percentageOrdered B y: Antonella Marrero on 02-15-2023 WBC (Bld) [#/Vol] 7.3 10*3/uL 4.4-11.0 [facility] Blood erythrocytes count (nu mber/volume)Ordered By: Antonella Marrero on 02-15-2023 RBC (Bld) [#/Vol] 4.76 10*6/uL 4.6-6.2 [facility] Blood hemoglobin measurement (mass/volume)Ordered By: Antonella Marrero on 02-15-2023 Hemoglobin (Bld) [Mass/Vol] 15.2 g/dL 13.0-16.5 [facility] Blood platelet mean volumeOr dered By: Antonella Marrero on 02-15-2023 Platelet mean volume (Bld) [Entitic vol] 8.8 fL 6.2-12.0 [facility] Determination of erythrocyte mean corpuscular volume (MCV)Ordered By: Antonella Marrero on 02-15-2023 MCV (RBC) [Entitic vol] 94.1 fL 80-94 [facility] Hematocrit Auto (Bld) [Volum e fraction]Ordered By: Antonella Marrero on 02-15-2023 Hematocrit (Bld) [Volume fraction] 44.8 % 40-54 [facility] Laboratory - Hematology and Cell countsOrdered By: Antonella Marrero on 02-15-2023 Erythrocyte distribution width (RBC) [Entitic vol] 46.2 fL 35.1-43.9 [facility] Erythrocyte distribution width (RBC) [Ratio] 13.4 % 11.6-14.6 [facility] MCH (RBC) [Entitic mass] 31.9 pg 27.0-32.0 [facility] MCHC Auto (RBC) [Mass/Vol]Or dered By: Antonella Marrero on 02-15-2023 MCHC (RBC) [Mass/Vol] 33.9 g/dL 32-36 [facility] No Panel InformationOrdered By: Antonella Marrero on 02-15-2023 Valproic Acid (Depakene) Level 89 ug/mL 50-100 [facility] Platelets bldOrdered By: Nidhi Marrero on 02-15-2023 Platelets (Bld) [#/Vol] 160 10*3/uL 150-450 [facility] No Panel InformationOrdered By: Antonella Marrero on 11-26-2022 Levetiracetam (Keppra) Level 16.9 ug/mL 10.0-40.0 [facility] Comment on above: Performed at: - [address] [id number] Director: Serena Merida MD, Phone: [phone] No Panel InformationOrdered By: Antonella Marrero on 11-25-2022 Thyroid Stimulating Hormone (TSH) 3.17 uIU/mL 0.358-3.74 [facility] Basophil percentageOrdered B y: Antonella Marrero on 10-08-2022 Chloride [Moles/Vol] 107 mmol/L 98-107 [facility] Cholesterol [Mass/Vol] 212 mg/dL <200 [facility] Comment on above: <200 mg/dL Desirable 200-240 mg/dL Borderline >240 mg/dL High Risk Glucose [Mass/Vol] 90 mg/dL 74-106 [facility] Potassium [Moles/Vol] 4.4 mmol/L 3.5-5.1 [facility] Comment on above: Slight Hemolysis, Re sult may be falsely increased. Sodium [Moles/Vol] 141 mmol/L 136-145 [facility] Triglyceride [Mass/Vol] 280 mg/dL <199 [facility] Comment on above: The drugs N-Acetylcy steine and Metamizole may falsely depress this assay.Serum Triglycerides Reference Interval Normal <150 mg/dL Borderline high 150 - 199 mg/dL High 200 - 499 mg/dL Very High > or = 500 mg/dL WBC (Bld) [#/Vol] 6.3 10*3/uL 4.4-11.0 [facility] Blood erythrocytes count (nu mber/volume)Ordered By: Antonella Marrero on 10-08-2022 RBC (Bld) [#/Vol] 4.73 10*6/uL 4.6-6.2 [facility] Blood hemoglobin measurement (mass/volume)Ordered By: Antonella Marrero on 10-08-2022 Hemoglobin (Bld) [Mass/Vol] 14.8 g/dL 13.0-16.5 [facility] Blood platelet mean volumeOr dered By: Antonella Marrero on 10-08-2022 Platelet mean volume (Bld) [Entitic vol] 9.2 fL 6.2-12.0 [facility] Determination of erythrocyte mean corpuscular volume (MCV)Ordered By: Antonella Marrero on 10-08-2022 MCV (RBC) [Entitic vol] 94.5 fL 80-94 [facility] Hematocrit Auto (Bld) [Volum e fraction]Ordered By: Antonella Marrero on 10-08-2022 Hematocrit (Bld) [Volume fraction] 44.7 % 40-54 [facility] Laboratory - Chemistry and C hemistry - challengeOrdered By: Antonella Marrero on 10-08-2022 CO2 [Moles/Vol] 27.0 mmol/L 21.0-32.0 [facility] Urea nitrogen/Creatinine [Mass ratio] 5.8 mg/mg 10-20 [facility] Laboratory - Hematology and Cell countsOrdered By: Antonella Marrero on 10-08-2022 Erythrocyte distribution width (RBC) [Entitic vol] 49.3 fL 35.1-43.9 [facility] Erythrocyte distribution width (RBC) [Ratio] 14.0 % 11.6-14.6 [facility] MCH (RBC) [Entitic mass] 31.3 pg 27.0-32.0 [facility] MCHC Auto (RBC) [Mass/Vol]Or dered By: Antonella Marrero on 10-08-2022 MCHC (RBC) [Mass/Vol] 33.1 g/dL 32-36 [facility] No Panel InformationOrdered By: Antonella Marrero on 10-08-2022 Estimated GFR (MDRD) Amer 69 mL/min >60 [facility] Comment on above: GFR Calc Estimated GFR (MDRD) Non-Af Amer 57 mL/min >60 [facility] Comment on above: Non- GFR Calc Valproic Acid (Depakene) Level 94 ug/mL 50-100 [facility] Platelets bldOrdered By: Pet endy Marrero on 10-08-2022 Platelets (Bld) [#/Vol] 201 10*3/uL 150-450 [facility] Serum or plasma calcium zakiya urement (mass/volume)Ordered By: Antonella Marrero on 10-08-2022 Calcium [Mass/Vol] 9.2 mg/dL 8.5-10.1 [facility] Serum or plasma cholesterol in HDL measurement (mass/volume)Ordered By: Antonella Marrero on 10-08-2022 Cholesterol in HDL [Mass/Vol] 31 mg/dL >40 [facility] Comment on above: The drugs N-Acetylcy steine and Metamizole may falsely depress this assay. Reference Range HDL <40 mg/dL Low HDL Cholesterol HDL >or= 60 mg/dL High HDL Cholesterol Serum or plasma cholesterol in VLDL measurement (mass/volume)Ordered By: Antonella Marrero on 10-08-2022 Cholesterol in VLDL [Mass/Vol] 56 mg/dL 5-40 [facility] Serum or plasma creatinine m easurement (mass/volume)Ordered By: Antonella Marrero on 10-08-2022 Creatinine [Mass/Vol] 1.39 mg/dL 0.70-1.30 [facility] Comment on above: The validity of the calculated GFR & GFRAA in patients over 70 years has not been determined. Clinical correlation is essential. Serum or plasma low density lipoprotein (LDL) cholesterol measurement (mass/volume)Ordered By: Antonella Marrero on 10-08-2022 Cholesterol in LDL [Mass/Vol] 125 mg/dL 0-130 [facility] Serum or plasma urea nitroge n measurement (mass/volume)Ordered By: Antonella Marrero on 10-08-2022 Urea nitrogen [Mass/Vol] 8 mg/dL 7-18 [facility] Thin prep Papanicolaou smear with manual screeningOrdered By: Antonella Marrero on 10-08-2022 Thin prep Papanicolaou smear with manual screening 7 5-15 [facility] Basophil percentageOrdered B y: Antonella Marrero on 09-17-2022 Chloride [Moles/Vol] 106 mmol/L 98-107 [facility] Glucose [Mass/Vol] 100 mg/dL 74-106 [facility] Comment on above: Fasting Glucose resu lt from 100 to 125 mg/dL suggests IMPAIRED HOMEOSTASIS per A.D.A. criteria. Potassium [Moles/Vol] 3.7 mmol/L 3.5-5.1 [facility] Sodium [Moles/Vol] 137 mmol/L 136-145 [facility] WBC (Bld) [#/Vol] 8.9 10*3/uL 4.4-11.0 [facility] Blood erythrocytes count (nu mber/volume)Ordered By: Antonella Marrero on 09-17-2022 RBC (Bld) [#/Vol] 4.89 10*6/uL 4.6-6.2 [facility] Blood hemoglobin measurement (mass/volume)Ordered By: Antonella Marrero on 09-17-2022 Hemoglobin (Bld) [Mass/Vol] 15.3 g/dL 13.0-16.5 [facility] Blood platelet mean volumeOr dered By: Antonella Marrero on 09-17-2022 Platelet mean volume (Bld) [Entitic vol] 8.4 fL 6.2-12.0 [facility] Determination of erythrocyte mean corpuscular volume (MCV)Ordered By: Antonella Marrero on 09-17-2022 MCV (RBC) [Entitic vol] 92.6 fL 80-94 [facility] Hematocrit Auto (Bld) [Volum e fraction]Ordered By: Antonella Marrero on 09-17-2022 Hematocrit (Bld) [Volume fraction] 45.3 % 40-54 [facility] Laboratory - Chemistry and C hemistry - challengeOrdered By: Antonella Marrero on 09-17-2022 CO2 [Moles/Vol] 27.0 mmol/L 21.0-32.0 [facility] Urea nitrogen/Creatinine [Mass ratio] 8.0 mg/mg 10-20 [facility] Laboratory - Hematology and Cell countsOrdered By: Antonella Marrero on 09-17-2022 Erythrocyte distribution width (RBC) [Entitic vol] 47.4 fL 35.1-43.9 [facility] Erythrocyte distribution width (RBC) [Ratio] 13.9 % 11.6-14.6 [facility] MCH (RBC) [Entitic mass] 31.3 pg 27.0-32.0 [facility] MCHC Auto (RBC) [Mass/Vol]Or dered By: Antonella Marrero on 04-20-2023 MCHC (RBC) [Mass/Vol] 33.8 g/dL 32-36 [facility] No Panel InformationOrdered By: Antonella Marrero on 09-17-2022 Estimated GFR (MDRD) Amer 87 mL/min >60 [facility] Comment on above: GFR Calc Estimated GFR (MDRD) Non-Af Amer 72 mL/min >60 [facility] Comment on above: Non- GFR Calc Platelets bldOrdered By: Pet endy Marrero on 09-17-2022 Platelets (Bld) [#/Vol] 199 10*3/uL 150-450 [facility] Serum or plasma calcium zakiya urement (mass/volume)Ordered By: Antonella Marrero on 09-17-2022 Calcium [Mass/Vol] 9.0 mg/dL 8.5-10.1 [facility] Serum or plasma creatinine m easurement (mass/volume)Ordered By: Antonella Marrero on 09-17-2022 Creatinine [Mass/Vol] 1.13 mg/dL 0.70-1.30 [facility] Comment on above: The validity of the calculated GFR & GFRAA in patients over 70 years has not been determined. Clinical correlation is essential. Serum or plasma urea nitroge n measurement (mass/volume)Ordered By: Antonella Marrero on 09-17-2022 Urea nitrogen [Mass/Vol] 9 mg/dL 7-18 [facility] Thin prep Papanicolaou smear with manual screeningOrdered By: Antonella Marrero on 09-17-2022 Thin prep Papanicolaou smear with manual screening 4 5- [facility] No Panel InformationOrdered By: Antonella Marrero on 08-26-2022 Thyroid Stimulating Hormone (TSH) 4.13 uIU/mL 0.358-3.74 [facility] No Panel InformationOrdered By: Antonella Marrero on 07-15-2022 Thyroid Stimulating Hormone (TSH) 3.90 uIU/mL 0.358-3.74 [facility] Culture, urineOrdered By: Romie Berry on 07-09-2022 Bacteria identified Cx Nom (U) Mixed Gram Pos & Gram Neg Org [facility] No Panel InformationOrdered By: Antonella Marrero on 07-08-2022 Prostate Specific Antigen Screen 3.21 ng/mL 0.00-4.00 [facility] Comment on above: This test was perfor med using the TPSA assay method for the[employer] chemistry system. Values obtained with differentassay methods cannot be used interchangably.When changing PSA assays in the course of monitoring apatient, additional sequential testing should be carriedout to confirm baseline values. Basophil percentageOrdered B y: Antonella Marrero on 07-06-2022 Basophil percentage 0 SEEN /hpf 0-5 [facility] Bilirubin Test strip Ql (U)O rdered By: Antonella Marrero on 07-06-2022 Bilirubin Ql (U) Negative Negative [facility] Ketones Test strip Ql (U)Ord ered By: Antonella Marrero on 07-06-2022 Ketones Ql (U) 5 mg/dl Negative [facility] Mucus LM Ql (Urine sed)Order ed By: Antonella Marrero on 07-06-2022 Mucus Ql (Urine sed) 0 SEEN /hpf [facility] Nitrite Test strip Ql (U)Ord ered By: Antonella Marrero on 07-06-2022 Nitrite Ql (U) Negative Negative [facility] Protein Test strip Ql (U)Ord ered By: Antonella Marrero on 07-06-2022 Protein Ql (U) Negative Negative [facility] Squamous epithelial cells de tection in urine sediment by light microscopyOrdered By: Antonella Marrero on 07-06-2022 Epithelial cells.squamous LM Ql (Urine sed) 0 SEEN /hpf 0-5 [facility] Urine blood detectionOrdered By: Antonella Marrero on 07-06-2022 RBC Ql (U) Negative Negative [facility] RBC Ql (U) 0 SEEN /hpf 0-5 [facility] Urine clarityOrdered By: Nidhi Marrero on 07-06-2022 Clarity (U) Clear Clear [facility] Urine color determinationOrd ered By: Antonella Marrero on 07-06-2022 Color (U) Yellow Yellow [facility] Urine glucose detectionOrder ed By: Antonella Marrero on 07-06-2022 Glucose Ql (U) Normal mg/dl Normal [facility] Urine leukocyte esterase det ection by dipstickOrdered By: Antonella Marrero on 07-06-2022 Leukocyte esterase Test strip Ql (U) Negative Negative [facility] Urine pHOrdered By: Antonella mitchell on 07-06-2022 pH (U) 6.5 [pH] 5.0 - 8.0 [facility] Urine sediment bacteria coun t by microscopy (number/high power field)Ordered By: Antonella Marrero on 07-06-2022 Bacteria LM.HPF (Urine sed) [#/Area] 0 /[HPF] None Seen [facility] Urine specific gravity measu rementOrdered By: Antonella Marrero on 07-06-2022 Specific gravity (U) [Rel density] 1.015 1.002-1.03 0 [facility] Urobilinogen Auto test strip Ql (U)Ordered By: Antonella Marrero on 07-06-2022 Urobilinogen Ql (U) Normal mg/dl Normal [facility] Basophil percentageOrdered B y: Antonella Marrero on 07-01-2022 Chloride [Moles/Vol] 106 mmol/L 98-107 [facility] Glucose [Mass/Vol] 87 mg/dL 74-106 [facility] Potassium [Moles/Vol] 4.0 mmol/L 3.5-5.1 [facility] Sodium [Moles/Vol] 141 mmol/L 136-145 [facility] WBC (Bld) [#/Vol] 6.8 10*3/uL 4.4-11.0 [facility] Blood erythrocytes count (nu mber/volume)Ordered By: Antonella Marrero on 07-01-2022 RBC (Bld) [#/Vol] 4.72 10*6/uL 4.6-6.2 [facility] Blood hemoglobin measurement (mass/volume)Ordered By: Antonella Marrero on 07-01-2022 Hemoglobin (Bld) [Mass/Vol] 14.8 g/dL 13.0-16.5 [facility] Blood platelet mean volumeOr dered By: Antonella Marrero on 07-01-2022 Platelet mean volume (Bld) [Entitic vol] 8.9 fL 6.2-12.0 [facility] Determination of erythrocyte mean corpuscular volume (MCV)Ordered By: Antonella Marrero on 07-01-2022 MCV (RBC) [Entitic vol] 91.5 fL 80-94 [facility] Hematocrit Auto (Bld) [Volum e fraction]Ordered By: Antonella Marrero on 07-01-2022 Hematocrit (Bld) [Volume fraction] 43.2 % 40-54 [facility] Laboratory - Chemistry and C hemistry - challengeOrdered By: Antonella Marrero on 07-01-2022 CO2 [Moles/Vol] 26.0 mmol/L 21.0-32.0 [facility] Urea nitrogen/Creatinine [Mass ratio] 9.9 mg/mg 10-20 [facility] Laboratory - Hematology and Cell countsOrdered By: Antonella Marrero on 07-01-2022 Erythrocyte distribution width (RBC) [Entitic vol] 45.4 fL 35.1-43.9 [facility] Erythrocyte distribution width (RBC) [Ratio] 13.4 % 11.6-14.6 [facility] MCH (RBC) [Entitic mass] 31.4 pg 27.0-32.0 [facility] MCHC Auto (RBC) [Mass/Vol]Or dered By: Antonella Marrero on 07-01-2022 MCHC (RBC) [Mass/Vol] 34.3 g/dL 32-36 [facility] No Panel InformationOrdered By: Antonella Marrero on 07-01-2022 Estimated GFR (MDRD) Amer 89 mL/min >60 [facility] Comment on above: GFR Calc Estimated GFR (MDRD) Non-Af Amer 73 mL/min >60 [facility] Comment on above: Non- GFR Calc Platelets bldOrdered By: Nidhi Marrero on 07-01-2022 Platelets (Bld) [#/Vol] 188 10*3/uL 150-450 [facility] Serum or plasma calcium zakiya urement (mass/volume)Ordered By: Antonella Marrero on 07-01-2022 Calcium [Mass/Vol] 8.8 mg/dL 8.5-10.1 [facility] Serum or plasma creatinine m easurement (mass/volume)Ordered By: Antonella Marrero on 07-01-2022 Creatinine [Mass/Vol] 1.11 mg/dL 0.70-1.30 [facility] Comment on above: The validity of the calculated GFR & GFRAA in patients over 70 years has not been determined. Clinical correlation is essential. Serum or plasma urea nitroge n measurement (mass/volume)Ordered By: Antonella Marrero on 07-01-2022 Urea nitrogen [Mass/Vol] 11 mg/dL 7-18 [facility] Thin prep Papanicolaou smear with manual screeningOrdered By: Antonella Marrero on 07-01-2022 Thin prep Papanicolaou smear with manual screening 9 5-15 [facility] Basophil percentageOrdered B y: Antonella Marrero on 06-29-2022 Chloride [Moles/Vol] 105 mmol/L 98-107 [facility] Glucose [Mass/Vol] 88 mg/dL 74-106 [facility] Potassium [Moles/Vol] 3.9 mmol/L 3.5-5.1 [facility] Sodium [Moles/Vol] 140 mmol/L 136-145 [facility] WBC (Bld) [#/Vol] 6.7 10*3/uL 4.4-11.0 [facility] Blood erythrocytes count (nu mber/volume)Ordered By: Antonella Marrero on 06-29-2022 RBC (Bld) [#/Vol] 5.00 10*6/uL 4.6-6.2 [facility] Blood hemoglobin measurement (mass/volume)Ordered By: Antonella Marrero on 06-29-2022 Hemoglobin (Bld) [Mass/Vol] 15.3 g/dL 13.0-16.5 [facility] Blood platelet mean volumeOr dered By: Antonella Marrero on 06-29-2022 Platelet mean volume (Bld) [Entitic vol] 9.2 fL 6.2-12.0 [facility] Determination of erythrocyte mean corpuscular volume (MCV)Ordered By: Antonella Marrero on 06-29-2022 MCV (RBC) [Entitic vol] 92.4 fL 80-94 [facility] Hematocrit Auto (Bld) [Volum e fraction]Ordered By: Antonella Marrero on 06-29-2022 Hematocrit (Bld) [Volume fraction] 46.2 % 40-54 [facility] Laboratory - Chemistry and C hemistry - challengeOrdered By: Antonella Marrero on 06-29-2022 CO2 [Moles/Vol] 25.0 mmol/L 21.0-32.0 [facility] Urea nitrogen/Creatinine [Mass ratio] 11.3 mg/mg 10-20 [facility] Laboratory - Hematology and Cell countsOrdered By: Antonella Marrero on 06-29-2022 Erythrocyte distribution width (RBC) [Entitic vol] 46.2 fL 35.1-43.9 [facility] Erythrocyte distribution width (RBC) [Ratio] 13.6 % 11.6-14.6 [facility] MCH (RBC) [Entitic mass] 30.6 pg 27.0-32.0 [facility] MCHC Auto (RBC) [Mass/Vol]Or dered By: Antonella Marrero on 06-29-2022 MCHC (RBC) [Mass/Vol] 33.1 g/dL 32-36 [facility] No Panel InformationOrdered By: Antonella Marrero on 06-29-2022 Estimated GFR (MDRD) Amer 85 mL/min >60 [facility] Comment on above: GFR Calc Estimated GFR (MDRD) Non-Af Amer 71 mL/min >60 [facility] Comment on above: Non- GFR Calc Platelets bldOrdered By: Nidhi Marrero on 06-29-2022 Platelets (Bld) [#/Vol] 189 10*3/uL 150-450 [facility] Serum or plasma calcium zakiya urement (mass/volume)Ordered By: Antonella Marrero on 06-29-2022 Calcium [Mass/Vol] 9.2 mg/dL 8.5-10.1 [facility] Serum or plasma creatinine m easurement (mass/volume)Ordered By: Antonella Marrero on 06-29-2022 Creatinine [Mass/Vol] 1.15 mg/dL 0.70-1.30 [facility] Comment on above: The validity of the calculated GFR & GFRAA in patients over 70 years has not been determined. Clinical correlation is essential. Serum or plasma urea nitroge n measurement (mass/volume)Ordered By: Antonella Marrero on 06-29-2022 Urea nitrogen [Mass/Vol] 13 mg/dL 7-18 [facility] Thin prep Papanicolaou smear with manual screeningOrdered By: Antonella Marrero on 06-29-2022 Thin prep Papanicolaou smear with manual screening 10 5-15 [facility] Basophil percentageOrdered B y: Antonella Marrero on 06-25-2022 Chloride [Moles/Vol] 105 mmol/L 98-107 [facility] Glucose [Mass/Vol] 96 mg/dL 74-106 [facility] Potassium [Moles/Vol] 4.1 mmol/L 3.5-5.1 [facility] Sodium [Moles/Vol] 140 mmol/L 136-145 [facility] WBC (Bld) [#/Vol] 6.7 10*3/uL 4.4-11.0 [facility] Blood erythrocytes count (nu mber/volume)Ordered By: Antonella Marrero on 06-25-2022 RBC (Bld) [#/Vol] 4.76 10*6/uL 4.6-6.2 [facility] Blood hemoglobin measurement (mass/volume)Ordered By: Antonella Marrero on 06-25-2022 Hemoglobin (Bld) [Mass/Vol] 14.6 g/dL 13.0-16.5 [facility] Blood platelet mean volumeOr dered By: Antonella Marrero on 06-25-2022 Platelet mean volume (Bld) [Entitic vol] 9.2 fL 6.2-12.0 [facility] Determination of erythrocyte mean corpuscular volume (MCV)Ordered By: Antonella Marrero on 06-25-2022 MCV (RBC) [Entitic vol] 94.1 fL 80-94 [facility] Hematocrit Auto (Bld) [Volum e fraction]Ordered By: Antonella Marrero on 06-25-2022 Hematocrit (Bld) [Volume fraction] 44.8 % 40-54 [facility] Laboratory - Chemistry and C hemistry - challengeOrdered By: Antonella Marrero on 06-25-2022 CO2 [Moles/Vol] 26.0 mmol/L 21.0-32.0 [facility] Urea nitrogen/Creatinine [Mass ratio] 7.3 mg/mg 10-20 [facility] Laboratory - Hematology and Cell countsOrdered By: Antonella Marrero on 06-25-2022 Erythrocyte distribution width (RBC) [Entitic vol] 47.8 fL 35.1-43.9 [facility] Erythrocyte distribution width (RBC) [Ratio] 13.7 % 11.6-14.6 [facility] MCH (RBC) [Entitic mass] 30.7 pg 27.0-32.0 [facility] MCHC Auto (RBC) [Mass/Vol]Or dered By: Antonella Marrero on 06-25-2022 MCHC (RBC) [Mass/Vol] 32.6 g/dL 32-36 [facility] No Panel InformationOrdered By: Antonella Marrero on 06-25-2022 Estimated GFR (MDRD) Amer 79 mL/min >60 [facility] Comment on above: GFR Calc Estimated GFR (MDRD) Non-Af Amer 65 mL/min >60 [facility] Comment on above: Non- GFR Calc Platelets bldOrdered By: Nidhi Marrero on 06-25-2022 Platelets (Bld) [#/Vol] 178 10*3/uL 150-450 [facility] Serum or plasma calcium zakiya urement (mass/volume)Ordered By: Antonella Marrero on 06-25-2022 Calcium [Mass/Vol] 8.9 mg/dL 8.5-10.1 [facility] Serum or plasma creatinine m easurement (mass/volume)Ordered By: Antonella Marrero on 06-25-2022 Creatinine [Mass/Vol] 1.23 mg/dL 0.70-1.30 [facility] Comment on above: The validity of the calculated GFR & GFRAA in patients over 70 years has not been determined. Clinical correlation is essential. Serum or plasma urea nitroge n measurement (mass/volume)Ordered By: Antonella Marrero on 06-25-2022 Urea nitrogen [Mass/Vol] 9 mg/dL 7-18 [facility] Thin prep Papanicolaou smear with manual screeningOrdered By: Antonella Marrero on 06-25-2022 Thin prep Papanicolaou smear with manual screening 9 5-15 [facility] No Panel InformationOrdered By: Antonella Marrero on 06-10-2022 Thyroid Stimulating Hormone (TSH) 3.91 uIU/mL 0.358-3.74 [facility] No Panel InformationOrdered By: Antonella Marrero on 05-27-2022 Levetiracetam (Keppra) Level 19.0 ug/mL 10.0-40.0 [facility] Comment on above: Performed at: [address] [id number] Director: Serena Merida MD, Phone: [phone] Valproic Acid (Depakene) Level 79 ug/mL 50-100 [facility] Basophil percentageOrdered B y: Antonella Marrero on 05-04-2022 Cholesterol [Mass/Vol] 240 mg/dL <200 [facility] Comment on above: <200 mg/dL Desirable 200-240 mg/dL Borderline >240 mg/dL High Risk Triglyceride [Mass/Vol] 209 mg/dL <199 [facility] Comment on above: The drugs N-Acetylcy steine and Metamizole may falsely depress this assay.Serum Triglycerides Reference Interval Normal <150 mg/dL Borderline high 150 - 199 mg/dL High 200 - 499 mg/dL Very High > or = 500 mg/dL WBC (Bld) [#/Vol] 6.5 10*3/uL 4.4-11.0 [facility] Blood erythrocytes count (nu mber/volume)Ordered By: Antonella Marrero on 05-04-2022 RBC (Bld) [#/Vol] 4.70 10*6/uL 4.6-6.2 [facility] Blood hemoglobin measurement (mass/volume)Ordered By: Antonella Marrero on 05-04-2022 Hemoglobin (Bld) [Mass/Vol] 14.6 g/dL 13.0-16.5 [facility] Blood platelet mean volumeOr dered By: Antonella Marrero on 05-04-2022 Platelet mean volume (Bld) [Entitic vol] 9.1 fL 6.2-12.0 [facility] Determination of erythrocyte mean corpuscular volume (MCV)Ordered By: Antonella Marrero on 05-04-2022 MCV (RBC) [Entitic vol] 91.3 fL 80-94 [facility] Hematocrit Auto (Bld) [Volum e fraction]Ordered By: Antonella Marrero on 05-04-2022 Hematocrit (Bld) [Volume fraction] 42.9 % 40-54 [facility] Laboratory - Hematology and Cell countsOrdered By: Antonella Marrreo on 05-04-2022 Erythrocyte distribution width (RBC) [Entitic vol] 45.2 fL 35.1-43.9 [facility] Erythrocyte distribution width (RBC) [Ratio] 13.4 % 11.6-14.6 [facility] MCH (RBC) [Entitic mass] 31.1 pg 27.0-32.0 [facility] MCHC Auto (RBC) [Mass/Vol]Or dered By: Antonella Marrero on 05-04-2022 MCHC (RBC) [Mass/Vol] 34.0 g/dL 32-36 [facility] No Panel InformationOrdered By: Antonella Marrero on 05-04-2022 Valproic Acid (Depakene) Level 81 ug/mL 50-100 [facility] Platelets bldOrdered By: Nidhi Marrero on 05-04-2022 Platelets (Bld) [#/Vol] 198 10*3/uL 150-450 [facility] Serum or plasma cholesterol in HDL measurement (mass/volume)Ordered By: Antonella Marrero on 05-04-2022 Cholesterol in HDL [Mass/Vol] 35 mg/dL >40 [facility] Comment on above: The drugs N-Acetylcy steine and Metamizole may falsely depress this assay. Reference Range HDL <40 mg/dL Low HDL Cholesterol HDL >or= 60 mg/dL High HDL Cholesterol Serum or plasma cholesterol in VLDL measurement (mass/volume)Ordered By: Antonella Marrero on 05-04-2022 Cholesterol in VLDL [Mass/Vol] 42 mg/dL 5-40 [facility] Serum or plasma low density lipoprotein (LDL) cholesterol measurement (mass/volume)Ordered By: Antonella Marrero on 05-04-2022 Cholesterol in LDL [Mass/Vol] 163 mg/dL 0-130 [facility] Basophil percentageOrdered B y: Antonella Marrero on 04-10-2022 Bilirubin [Mass/Vol] 0.70 mg/dL 0.20-1.00 [facility] Comment on above: For patients on eltr ombopag therapy, use of Dimension [place] TBIL is not recommended. Chloride [Moles/Vol] 103 mmol/L 98-107 [facility] Cholesterol [Mass/Vol] 211 mg/dL <200 [facility] Comment on above: <200 mg/dL Desirable 200-240 mg/dL Borderline >240 mg/dL High Risk Glucose [Mass/Vol] 99 mg/dL 74-106 [facility] Potassium [Moles/Vol] 3.5 mmol/L 3.5-5.1 [facility] Protein [Mass/Vol] 7.2 g/dL 6.4-8.2 [facility] Sodium [Moles/Vol] 138 mmol/L 136-145 [facility] Triglyceride [Mass/Vol] 136 mg/dL <199 [facility] Comment on above: The drugs N-Acetylcy steine and Metamizole may falsely depress this assay.Serum Triglycerides Reference Interval Normal <150 mg/dL Borderline high 150 - 199 mg/dL High 200 - 499 mg/dL Very High > or = 500 mg/dL WBC (Bld) [#/Vol] 9.7 10*3/uL 4.4-11.0 [facility] Blood erythrocytes count (nu mber/volume)Ordered By: Antonella Marrero on 04-10-2022 RBC (Bld) [#/Vol] 4.58 10*6/uL 4.6-6.2 [facility] Blood hemoglobin measurement (mass/volume)Ordered By: Antonella Marrero on 04-10-2022 Hemoglobin (Bld) [Mass/Vol] 13.9 g/dL 13.0-16.5 [facility] Blood platelet mean volumeOr dered By: Antonella Marrero on 04-10-2022 Platelet mean volume (Bld) [Entitic vol] 9.0 fL 6.2-12.0 [facility] Determination of erythrocyte mean corpuscular volume (MCV)Ordered By: Antonella Marrero on 04-10-2022 MCV (RBC) [Entitic vol] 91.5 fL 80-94 [facility] Hematocrit Auto (Bld) [Volum e fraction]Ordered By: Antonella Marrero on 04-10-2022 Hematocrit (Bld) [Volume fraction] 41.9 % 40-54 [facility] Laboratory - Chemistry and C hemistry - challengeOrdered By: Antonella Marrero on 11-11-2022 ALP [Catalytic activity/Vol] 63 U/L 45-117 [facility] ALT [Catalytic activity/Vol] 33 U/L 16-61 [facility] CO2 [Moles/Vol] 27.0 mmol/L 21.0-32.0 [facility] Globulin (S) [Mass/Vol] 4.1 g/dL 2.2-4.2 [facility] Urea nitrogen/Creatinine [Mass ratio] 6.2 mg/mg 10-20 [facility] Laboratory - Hematology and Cell countsOrdered By: Antonella Marrero on 04-10-2022 Erythrocyte distribution width (RBC) [Entitic vol] 45.3 fL 35.1-43.9 [facility] Erythrocyte distribution width (RBC) [Ratio] 13.4 % 11.6-14.6 [facility] MCH (RBC) [Entitic mass] 30.3 pg 27.0-32.0 [facility] MCHC Auto (RBC) [Mass/Vol]Or dered By: Antonlela Marrero on 04-10-2022 MCHC (RBC) [Mass/Vol] 33.2 g/dL 32-36 [facility] No Panel InformationOrdered By: Antonella Marrero on 04-10-2022 Estimated GFR (MDRD) Amer 87 mL/min >60 [facility] Comment on above: GFR Calc Estimated GFR (MDRD) Non-Af Amer 72 mL/min >60 [facility] Comment on above: Non- GFR Calc Thyroid Stimulating Hormone (TSH) 4.19 uIU/mL 0.358-3.74 [facility] Valproic Acid (Depakene) Level 94 ug/mL 50-100 [facility] Platelets bldOrdered By: Nidhi Marrero on 04-10-2022 Platelets (Bld) [#/Vol] 180 10*3/uL 150-450 [facility] Serum or plasma albumin zakiya urement (mass/volume)Ordered By: Antonella Marrero on 04-10-2022 Albumin [Mass/Vol] 3.1 g/dL 3.2-5.0 [facility] Serum or plasma albumin/glob ulin mass ratioOrdered By: Antonella Marrero on 04-10-2022 Albumin/Globulin [Mass ratio] 0.8 {ratio} 0.9-2.4 [facility] Serum or plasma calcium zakiya urement (mass/volume)Ordered By: Antonella Marrero on 04-10-2022 Calcium [Mass/Vol] 9.0 mg/dL 8.5-10.1 [facility] Serum or plasma cholesterol in HDL measurement (mass/volume)Ordered By: Antonella Marrero on 04-10-2022 Cholesterol in HDL [Mass/Vol] 46 mg/dL >40 [facility] Comment on above: The drugs N-Acetylcy steine and Metamizole may falsely depress this assay. Reference Range HDL <40 mg/dL Low HDL Cholesterol HDL >or= 60 mg/dL High HDL Cholesterol Serum or plasma cholesterol in VLDL measurement (mass/volume)Ordered By: Antonella Marrero on 04-10-2022 Cholesterol in VLDL [Mass/Vol] 27 mg/dL 5-40 [facility] Serum or plasma creatinine m easurement (mass/volume)Ordered By: Antonella Marrero on 04-10-2022 Creatinine [Mass/Vol] 1.13 mg/dL 0.70-1.30 [facility] Comment on above: The validity of the calculated GFR & GFRAA in patients over 70 years has not been determined. Clinical correlation is essential. Serum or plasma low density lipoprotein (LDL) cholesterol measurement (mass/volume)Ordered By: Antonella Marrero on 04-10-2022 Cholesterol in LDL [Mass/Vol] 138 mg/dL 0-130 [facility] Serum or plasma urea nitroge n measurement (mass/volume)Ordered By: Antonella Marrero on 04-10-2022 Urea nitrogen [Mass/Vol] 7 mg/dL 7-18 [facility] Thin prep Papanicolaou smear with manual screeningOrdered By: Antonella Marrero on 04-10-2022 Thin prep Papanicolaou smear with manual screening 17 U/L 15-37 [facility] Thin prep Papanicolaou smear with manual screening 8 5-15 [facility] No Panel InformationOrdered By: Antonella Marrero on 02-18-2022 Vitamin D 25-Hydroxy 60.0 ng/mL [facility] Comment on above: Vitamin D 25(OH) Sta tus Range Deficiency <20 ng/mL (50nmol/L) Insufficiency 20 - 30 ng/mL (50 - 75 nmol/L) Sufficiency 30 - 100 ng/mL (75 - 250 nmol/L) Toxicity >100 ng/mL (>250 nmol/L) Basophil percentageon 2021 WBC (Bld) [#/Vol] 6.1 10*3/uL 4.4-11.0 [facility] Work Phone: Blood erythrocytes count (nu mber/volume)on 02-03-2022 RBC (Bld) [#/Vol] 4.28 10*6/uL 4.6-6.2 [facility] Work Phone: Blood hemoglobin measurement (mass/volume)on 02-03-2022 Hemoglobin (Bld) [Mass/Vol] 13.3 g/dL 13.0-16.5 [facility] Work Phone: Blood platelet mean volumeon 02-03-2022 Platelet mean volume (Bld) [Entitic vol] 8.8 fL 6.2-12.0 [facility] Work Phone: Determination of erythrocyte mean corpuscular volume (MCV)on 02-03-2022 MCV (RBC) [Entitic vol] 92.5 fL 80-94 [facility] Work Phone: Hematocrit Auto (Bld) [Volum e fraction]on 02-03-2022 Hematocrit (Bld) [Volume fraction] 39.6 % 40-54 [facility] Work Phone: Laboratory - Hematology and Cell countson 02-03-2022 Erythrocyte distribution width (RBC) [Entitic vol] 47.8 fL 35.1-43.9 [facility] Work Phone: Erythrocyte distribution width (RBC) [Ratio] 14.1 % 11.6-14.6 [facility] Work Phone: MCH (RBC) [Entitic mass] 31.1 pg 27.0-32.0 [facility] Work Phone: MCHC Auto (RBC) [Mass/Vol]on 02-03-2022 MCHC (RBC) [Mass/Vol] 33.6 g/dL 32-36 [facility] Work Phone: No Panel Informationon 02-03 Valproic Acid (Depakene) Level 86 ug/mL 50-100 [facility] Work Phone: Platelets bldon 02-03-2022 Platelets (Bld) [#/Vol] 162 10*3/uL 150-450 [facility] Work Phone: No Panel Informationon 01-16 Prostate Specific Antigen Screen 2.04 ng/mL 0.00-4.00 [facility] Work Phone: Comment on above: This test was perfor med using the TPSA assay method for [employer] chemistry system. Values obtained with differentassay methods cannot be used interchangably.When changing PSA assays in the course of monitoring apatient, additional sequential testing should be carriedout to confirm baseline values. Absolute lymphocyte counton 12-04-2021 Lymphocytes Auto (Unsp spec) [#/Vol] 2.30 10*3/uL 0.83-4.51 [facility] Work Phone: [phone] Basophil percentageon 2021 Basophils/100 WBC (Bld) 1.0 % 0-1 [facility] Work Phone: Chloride [Moles/Vol] 105 mmol/L 98-107 [facility] Work Phone: Eosinophils/100 WBC (Bld) 6.3 % 0-5 [facility] Work Phone: Glucose [Mass/Vol] 103 mg/dL 74-106 [facility] Work Phone: Comment on above: Fasting Glucose resu lt from 100 to 125 mg/dL suggests IMPAIRED HOMEOSTASIS per A.D.A. criteria. Neutrophils (Bld) [#/Vol] 2.0 10*3/uL 2.0-7.7 [facility] Work Phone: [phone] Neutrophils/100 WBC (Bld) 38.8 % 47-70 [facility] Work Phone: Potassium [Moles/Vol] 3.8 mmol/L 3.5-5.1 [facility] Work Phone: Sodium [Moles/Vol] 139 mmol/L 136-145 [facility] Work Phone: [phone] WBC (Bld) [#/Vol] 5.1 10*3/uL 4.4-11.0 [facility] Work Phone: Blood erythrocytes count (nu mber/volume)on 12-04-2021 RBC (Bld) [#/Vol] 4.30 10*6/uL 4.6-6.2 [facility] Work Phone: Blood hemoglobin measurement (mass/volume)on 12-04-2021 Hemoglobin (Bld) [Mass/Vol] 13.1 g/dL 13.0-16.5 [facility] Work Phone: Blood lymphocytes/100 leukoc yteson 12-04-2021 Lymphocytes/100 WBC (Bld) 45.4 % 19-41 [facility] Work Phone: Blood monocytes/100 leukocyt eson 12-04-2021 Monocytes/100 WBC (Bld) 8.1 % 0-10 [facility] Work Phone: Blood platelet mean volumeon 12-04-2021 Platelet mean volume (Bld) [Entitic vol] 9.2 fL 6.2-12.0 [facility] Work Phone: Determination of erythrocyte mean corpuscular volume (MCV)on 12-04-2021 MCV (RBC) [Entitic vol] 91.6 fL 80-94 [facility] Work Phone: Hematocrit Auto (Bld) [Volum e fraction]on 12-04-2021 Hematocrit (Bld) [Volume fraction] 39.4 % 40-54 [facility] Work Phone: Laboratory - Chemistry and C hemistry - challengeon 12-04-2021 CO2 [Moles/Vol] 27.0 mmol/L 21.0-32.0 [facility] Work Phone: Urea nitrogen/Creatinine [Mass ratio] 8.1 mg/mg 10-20 [facility] Work Phone: Laboratory - Hematology and Cell countson 12-04-2021 Erythrocyte distribution width (RBC) [Entitic vol] 47.0 fL 35.1-43.9 [facility] Work Phone: Erythrocyte distribution width (RBC) [Ratio] 14.0 % 11.6-14.6 [facility] Work Phone: Immature granulocytes/100 WBC (Bld) 0.400 % 0.0-0.9 [facility] Work Phone: Comment on above: IG% - Immature Granu locytes (promyelocytes, myelocytes and metamyelocytes) > 1% indicates that a LEFT SHIFT is Present. MCH (RBC) [Entitic mass] 30.5 pg 27.0-32.0 [facility] Work Phone: Nucleated RBC/100 WBC (Bld) [Ratio] 0 % 0-5 [facility] Work Phone: MCHC Auto (RBC) [Mass/Vol]on 12-04-2021 MCHC (RBC) [Mass/Vol] 33.2 g/dL 32-36 [facility] Work Phone: No Panel Informationon 12-04 Estimated GFR (MDRD) Amer 103 mL/min >60 [facility] Work Phone: Comment on above: GFR Calc Estimated GFR (MDRD) Non-Af Amer 85 mL/min >60 [facility] Work Phone: Comment on above: Non- GFR Calc Thyroid Stimulating Hormone (TSH) 2.85 uIU/mL 0.358-3.74 [facility] Work Phone: Platelets bldon 12-04-2021 Platelets (Bld) [#/Vol] 233 10*3/uL 150-450 [facility] Work Phone: Serum or plasma calcium zakiya urement (mass/volume)on 12-04-2021 Calcium [Mass/Vol] 9.1 mg/dL 8.5-10.1 [facility] Work Phone: Serum or plasma creatinine m easurement (mass/volume)on 12-04-2021 Creatinine [Mass/Vol] 0.98 mg/dL 0.70-1.30 [facility] Work Phone: Comment on above: The validity of the calculated GFR & GFRAA in patients over 70 years has not been determined. Clinical correlation is essential. Serum or plasma urea nitroge n measurement (mass/volume)on 12-04-2021 Urea nitrogen [Mass/Vol] 8 mg/dL 7-18 [facility] Work Phone: Thin prep Papanicolaou smear with manual screeningon 12-04-2021 Thin prep Papanicolaou smear with manual screening 7 -15 [facility] Work Phone: Basophil percentageon 2021 Basophil percentage 0 SEEN /hpf 0-5 [facility] Work Phone: Bilirubin Test strip Ql (U)o n 11-24-2021 Bilirubin Ql (U) Negative Negative [facility] Work Phone: Ketones Test strip Ql (U)on 11-24-2021 Ketones Ql (U) Negative Negative [facility] Work Phone: Mucus LM Ql (Urine sed)on Mucus Ql (Urine sed) 0 SEEN /hpf [facility] Work Phone: Nitrite Test strip Ql (U)on 11-24-2021 Nitrite Ql (U) Negative Negative [facility] Work Phone: Protein Test strip Ql (U)on 11-24-2021 Protein Ql (U) Negative Negative [facility] Work Phone: Squamous epithelial cells de tection in urine sediment by light microscopyon 11-24-2021 Epithelial cells.squamous LM Ql (Urine sed) 0 SEEN /hpf 0-5 [facility] Work Phone: Urine blood detectionon 10-30 RBC Ql (U) Negative Negative [facility] Work Phone: RBC Ql (U) 0 SEEN /hpf 0-5 [facility] Work Phone: Urine clarityon 11-24-2021 Clarity (U) Clear Clear [facility] Work Phone: [phone] Urine color determinationon 11-24-2021 Color (U) Yellow Yellow [facility] Work Phone: Urine glucose detectionon Glucose Ql (U) Normal mg/dl Normal [facility] Work Phone: Urine leukocyte esterase det ection by dipstickon 11-24-2021 Leukocyte esterase Test strip Ql (U) Negative Negative [facility] Work Phone: Urine pHon 11-24-2021 pH (U) 6.0 [pH] 5.0 - 8.0 [facility] Work Phone: Urine sediment bacteria coun t by microscopy (number/high power field)on 11-24-2021 Bacteria LM.HPF (Urine sed) [#/Area] 0 /[HPF] None Seen [facility] Work Phone: Urine specific gravity measu rementon 11-24-2021 Specific gravity (U) [Rel density] 1.015 1.002-1.03 0 [facility] Work Phone: Urobilinogen Auto test strip Ql (U)on 11-24-2021 Urobilinogen Ql (U) 1 mg/dl Normal [facility] Work Phone: Ammoniaon 11-14-2021 Ammonia (P) [Mass/Vol] ug/dL Normal 9-30 [facility] Comment on above: Order Comment: Sligh t Hemolysis. Performed By: #### N H33 #### [facility] [address] [place] [address] Ammonia (P) [Mass/Vol] ug/dL 9 - 3 0 umol/L [facility] Work Phone: Test Performed by [facility], [address], [place], [place] [address] [facility] Work Phone: Basic Metabolic Panelon 06- Calcium [Mass/Vol] 9.3 mg/dL Normal 8.4-10.4 [facility] Comment on above: Performed By: #### T ROPN, BMP3, HEMDF #### [facility] [address] [place] [address] Glucose [Mass/Vol] 120 mg/dL High 70-100 [facility] Comment on above: Result Comment: Slig htly hemolysed, interpret with caution. Performed By: #### T ROPN, BMP3, HEMDF #### [facility] [address] [place] [address] Urea nitrogen [Mass/Vol] 15 mg/dL Normal 7-17 [facility] Comment on above: Performed By: #### T ROPN, BMP3, HEMDF #### [facility] [address] [place] [address] Anion gap [Moles/Vol] 14 mmol/L High 3-13 [facility] Comment on above: Performed By: #### T ROPN, BMP3, HEMDF #### [facility] [address] [place] [address] CO2 [Moles/Vol] 26 mmol/L Normal 22-30 [facility] Comment on above: Performed By: #### T ROPN, BMP3, HEMDF #### [facility] [address] [place] [address] Creatinine [Mass/Vol] 0.98 mg/dL Normal 0.52-1.25 [facility] Comment on above: Performed By: #### T ROPN, BMP3, HEMDF #### [facility] [address] [place] [address] GFR/1.73 sq M.predicted among blacks MDRD (S/P/Bld) [Vol rate/Area] mL/min/{1.73_m2} Normal >60 [facility] Comment on above: Performed By: #### T ROPN, BMP3, HEMDF #### [facility] [address] [place] [address] GFR/1.73 sq M.predicted among non-blacks MDRD (S/P/Bld) [Vol rate/Area] 87.6 mL/min/{1.73_m2} Normal >60 [facility] Comment on above: Result Comment: KDIG O guidelines provide the following GFR categories: Stage GFR(ml/min/1.73 m2) Terms G1 >=90 Normal or high G2 60-89 Mildly decreased* G3a 45-59 Mildly to moderately decreased G3b 30-44 Moderately to severely decreased G4 15-29 Severely decreased G5 <15 Kidney failure *Relative to young adult level. In the absence of evidence of kidney damage, neither GFR category G1 nor G2 fulfill the criteria for CKD. The CKD-EPI equation is validated in individuals 18 years of age and older. Currently the best equation for estimating glomerular filtration rate (GFR) from serum creatinine in children is the Bedside Marie equation. It is less accurate in patients with extremes of muscle mass, restriction of dietary protein, ingestion of creatine, extra-renal metabolism of creatinine, or treatment with medications that affect renal tubular creatinine secretion. Performed By: #### T BRANDY BMP3, HEMDF #### [facility] [address] [place] [address] Potassium [Moles/Vol] 5.1 mmol/L Normal 3.5-5.1 [facility] Comment on above: Result Comment: Jose gandhi hemolysed, interpret with caution. Performed By: #### T BRANDY BMP3, HEMDF #### [facility] [address] [place] [address] Chloride [Moles/Vol] 96 mmol/L Low 98-107 [facility] Comment on above: Performed By: #### T BRANDY BMP3, HEMDF #### [facility] [address] [place] [address] Sodium [Moles/Vol] 136 mmol/L Normal 135-145 [facility] Comment on above: Performed By: #### T BRANDY BMP3, HEMDF #### [facility] [address] [place] [address] Anion gap [Moles/Vol] 14 mmol/L High 3 - 13 mmol/L [facility] Work Phone: Calcium [Mass/Vol] 9.3 mg/dL 8.4 - 10. 4 mg/dL [facility] Work Phone: [phone] Chloride [Moles/Vol] 96 mmol/L Low 98 - 10 7 mmol/L [facility] Work Phone: ) CO2 [Moles/Vol] 26 mmol/L 22 - 30 mmol/L [facility] Work Phone: [phone] Creatinine [Mass/Vol] 0.98 mg/dL 0.52 - 1.25 mg/dL [facility] Work Phone: EGFR IF NonAfrican Malagasy 87.6 mL/min >60 [facility] Work Phone: [phone] Comment on above: KDIGO guidelines pro vide the following GFR categories: Stage GFR(ml/min/1.73 m2) Terms G1 >=90 Normal or high G2 60-89 Mildly decreased* G3a 45-59 Mildly to moderately decreased G3b 30-44 Moderately to severely decreased G4 15-29 Severely decreased G5 <15 Kidney failure *Relative to young adult level. In the absence of evidence of kidney damage, neither GFR category G1 nor G2 fulfill the criteria for CKD. The CKD-EPI equation is validated in individuals 18 years of age and older. Currently the best equation for estimating glomerular filtration rate (GFR) from serum creatinine in children is the Bedside Marie equation. It is less accurate in patients with extremes of muscle mass, restriction of dietary protein, ingestion of creatine, extra-renal metabolism of creatinine, or treatment with medications that affect renal tubular creatinine secretion. GFR/1.73 sq M.predicted among blacks MDRD (S/P/Bld) [Vol rate/Area] mL/min/{1.73_m2} >60 mL/min [facility] Work Phone: [phone] Glucose [Mass/Vol] 120 mg/dL High 70 - 100 mg/dL [facility] Work Phone: [phone] Comment on above: Slightly hemolysed, interpret with caution. Interpretation and review of laboratory results Abnormal [facility] Work Phone: [phone] Potassium [Moles/Vol] 5.1 mmol/L 3.5 - 5.1 mmol/L [facility] Work Phone: [phone] Comment on above: Slightly hemolysed, interpret with caution. Sodium [Moles/Vol] 136 mmol/L 135 - 145 mmol/L [facility] Work Phone: [phone] Urea nitrogen (BldV) [Mass/Vol] 15 mg/dL 7 - 17 mg/dL [facility] Work Phone: [phone] CBC with Auto Differentialon 11-14-2021 Absolute Baso # 0.1 10*3/uL 0.0 - 0.2 10*3/uL [facility] Work Phone: [phone] Absolute Neut # 4.4 10*3/uL 1.8 - 7.0 10*3/uL [facility] Work Phone: [phone] Basophils/100 WBC (Bld) 1.0 % 0.0 - 2.0 % [facility] Work Phone: ) 222 Eosinophils (Bld) [#/Vol] 0.2 10*3/uL 0.0 - 0.5 10*3/uL [facility] Work Phone: [phone] 222 Eosinophils/100 WBC (Bld) 2.3 % 1.0 - 6.0 % [facility] Work Phone: [phone] 222 Granulocytes/100 WBC (Bld) 57.9 % 40.0 - 80.0 % [facility] Work Phone: ) 222 Hematocrit (Bld) [Volume fraction] 44.0 % 40.0 - 52.0 % [facility] Work Phone: [phone] Hemoglobin (Bld) [Mass/Vol] 15.5 g/dL 13.0 - 18.0 g/dL [facility] Work Phone: [phone] Interpretation and review of laboratory results Abnormal [facility] Work Phone: [phone] Lymphocytes (Bld) [#/Vol] 1.6 10*3/uL 1.0 - 4.3 10*3/uL [facility] Work Phone: [phone] 222 Lymphocytes/100 WBC (Bld) 20.9 % 20.0 - 40.0 % [facility] Work Phone: [phone] MCH (RBC) [Entitic mass] 31.3 pg 26.0 - 34.0 pg [facility] Work Phone: ) 222 MCHC (RBC) [Mass/Vol] 35.2 % 32.0 - 36.0 % [facility] Work Phone: [phone] 222 MCV (RBC) [Entitic vol] 88.7 fL 80.0 - 98.[address] [facility] Work Phone: Monocytes (Bld) [#/Vol] 1.2 10*3/uL High 0.0 - 0.8 10*3/uL [facility] Work Phone: 222 Monocytes/100 WBC (Bld) 16.2 % High 2.0 - 10.0 % [facility] Work Phone: [phone] Platelet distribution width (Bld) [Ratio] 12.8 % 11.5 - 14.5 % [facility] Work Phone: Platelet mean volume (Bld) [Entitic vol] 9.1 fL 7.4 - 12.[address] [facility] Work Phone: Comment on above: MPV is a calculated measurement using platelet volume ratio. Platelets (Bld) [#/Vol] 204 10*3/uL 140 - 440 10*3/uL [facility] Work Phone: [phone] 222 RBC (Bld) [#/Vol] 4.96 10*6/uL 4.40 - 5.90 10*6/uL [facility] Work Phone: 222 WBC (Bld) [#/Vol] 7.7 10*3/uL 3.6 - 10.7 10*3/uL [facility] Work Phone: Test Performed by [facility], [address] [place], [place] [address] [facility] Work Phone: [phone] COVID-19, Flu A/B, and RSV C [facility] 11-14-2021 Influenza A by PCR Not detected [facility] Work Phone: ) 222 Influenza B by PCR Not detected [facility] Work Phone: RSV PCR Not Detected. Expected Result: Not Detected _ Method: Real-time, RT-PCR This assay was developed by [employer] and distributed under an Emergency Use Authorization (EUA) granted by the FDA for the qualitative detection of nucleic acids from SARS-CoV-2, Influenza A, Influenza B, and Respiratory Syncytial Virus. Provider and patient fact sheets can be found at https://www.fda.gov/media/3 25913/download and https://www.fda.gov/media/5 37035/download. [facility] Work Phone: SARS-CoV-2 (COVID-19) RNA LASHA+probe Ql (Unsp spec) Not detected [facility] Work Phone: Test Performed by [facility], [address] [place] [address]. , [address] [facility] Work Phone: CR Chest PA/LATon 11-14-2021 CR Chest PA/LAT Patient Name: KARI MUHAMMAD Diagnostic Radiology ACCESSION EXAM DATE/TIME PROCEDURE ORDERING PROVIDER [id number] 11/14/2021 00:25 EDT CR Chest PA and LAT MD WILLIAM, KWAME CPT code 29597 Reason For Exam (CR Chest PA and LAT) cough Report CHEST X-RAY PA/LATERAL CLINICAL INDICATION: Cough Frontal and lateral plain films of the chest were obtained. COMPARISON: 03/02/2017 FINDINGS: The cardiac silhouette is within normal limits. No focal consolidation is seen within the lungs. No pleural effusion or pneumothorax is identified. The bony structures of the chest are unremarkable as visualized for the patient's age. IMPRESSION: No acute cardiopulmonary disease. Report Dictated on Final Dictating Physician: MD LICONA JONATHAN R Signed Date and Time: 11/14/2021 0:33 am Signed by: MD LICONA JONATHAN R Transcribed Date and Time: 11/14/2021 0:34 Normal [facility] CTA CHEST W WO CONTRASTon Patient Name: KARI MUHAMMAD Computed Tomography ACCESSION EXAM DATE/TIME PROCEDURE ORDERING PROVIDER [id number] 11/14/2021 06:38 EDT CTA Chest w/ + w/o [id number] -Rosa CARVALHO CPT code 98032 Q9967 Reason For Exam (CTA Chest w/ + w/o Contrast) Recent Covid - Dyspnea - Elevated Ddimer Report CTA CHEST WITH CONTRAST CLINICAL INDICATION: Dyspnea, elevated d-dimer Serial axial CT images were obtained from the lung apices through the upper abdomen after a bolus tracked intravenous contrast injection over the pulmonary arteries. 75 cc of Isovue 370 contrast was given intravenously. Three-dimensional and surface-shaded reconstructions were performed by myself on a separate workstation at the time of dictation. COMPARISON: 12/02/2015. FINDINGS: No filling defects are seen within the pulmonary vasculature to suggest the presence of pulmonary embolism. No focal consolidation is seen within the lungs. There is no pleural effusion or pneumothorax. There are faint reticular nodular densities within the lung bases, predominantly on the right. Mild left lower lobe peribronchial thickening is noted. There is no hilar, mediastinal, or axillary lymphadenopathy. The heart size is within normal limits. There is no pericardial effusion. The thoracic aorta appears normal in caliber. Coronary artery calcification is noted. Within the visualized portion of the upper abdomen, there is a coarse calcification within the superolateral aspect of the left kidney, unchanged when compared to the study from 2016. No lytic or blastic lesions are seen on the bone windows. IMPRESSION: No evidence of pulmonary embolism. No focal consolidation is seen within the lungs. There are faint reticular nodular densities within the left and right lower lobes, predominantly on the right. This is most commonly seen in the setting of infectious bronchiolitis. There is also mild left lower lobe peribronchial thickening. Computed Tomography Report Coarse calcification within the superolateral aspect of the left kidney is stable when compared to an older exam from 2016. Report Dictated on --- Final --- Dictating Physician: MD LICONA JONATHAN R Signed Date and Time: 11/14/2021 6:50 am Signed by: MD LICONA JONATHAN R Transcribed Date and Time: 11/14/2021 6:51 Lianne Saldaña MD - 11/14/2021 Patient Name: KARI ALLAN Computed Tomography ACCESSION EXAM DATE/TIME PROCEDURE ORDERING PROVIDER [id number] 11/14/2021 06:38 EDT CTA Chest w/ + w/o [id number] Rosa FELICIANO CPT code 06184 Q9967 Reason For Exam (CTA Chest w/ + w/o Contrast) Recent Covid - Dyspnea - Elevated Ddimer Report CTA CHEST WITH CONTRAST CLINICAL INDICATION: Dyspnea, elevated d-dimer Serial axial CT images were obtained from the lung apices through the upper abdomen after a bolus tracked intravenous contrast injection over the pulmonary arteries. 75 cc of Isovue 370 contrast was given intravenously. Three-dimensional and surface-shaded reconstructions were performed by myself on a separate workstation at the time of dictation. COMPARISON: 12/02/2015. FINDINGS: No filling defects are seen within the pulmonary vasculature to suggest the presence of pulmonary embolism. No focal consolidation is seen within the lungs. There is no pleural effusion or pneumothorax. There are faint reticular nodular densities within the lung bases, predominantly on the right. Mild left lower lobe peribronchial thickening is noted. There is no hilar, mediastinal, or axillary lymphadenopathy. The heart size is within normal limits. There is no pericardial effusion. The thoracic aorta appears normal in caliber. Coronary artery calcification is noted. Within the visualized portion of the upper abdomen, there is a coarse calcification within the superolateral aspect of the left kidney, unchanged when compared to the study from 2016. No lytic or blastic lesions are seen on the bone windows. IMPRESSION: No evidence of pulmonary embolism. No focal consolidation is seen within the lungs. There are faint reticular nodular densities within the left and right lower lobes, predominantly on the right. This is most commonly seen in the setting of infectious bronchiolitis. There is also mild left lower lobe peribronchial thickening. Computed Tomography Report Coarse calcification within the superolateral aspect of the left kidney is stable when compared to an older exam from 2016. Report Dictated on --- Final --- Dictating Physician: MD LICONA JONATHAN R Signed Date and Time: 11/14/2021 6:50 am Signed by: MD LICONA JONATHAN R Transcribed Date and Time: 11/14/2021 6:51 [facility] Work Phone: [facility] Work Phone: Radiology Study observation (narrative) [facility] Work Phone: CTA Chest w/ + w/o Contrasto n 11-14-2021 CTA Chest w/ + w/o Contrast [facility]: [id number] ACCESSION EXAM DATE/TIME PROCEDURE ORDERING PROVIDER [id number] 11/14/2021 06:38 EDT CTA Chest w/ + w/o [id number] Rosa FELICIANO SAIDA CPT code 13583 Q9967 Reason For Exam (CTA Chest w/ + w/o Contrast) Recent Covid - Dyspnea - Elevated Ddimer Report CTA CHEST WITH CONTRAST CLINICAL INDICATION: Dyspnea, elevated d-dimer Serial axial CT images were obtained from the lung apices through the upper abdomen after a bolus tracked intravenous contrast injection over the pulmonary arteries. 75 cc of Isovue 370 contrast was given intravenously. Three-dimensional and surface-shaded reconstructions were performed by myself on a separate workstation at the time of dictation. COMPARISON: 12/02/2015. FINDINGS: No filling defects are seen within the pulmonary vasculature to suggest the presence of pulmonary embolism. No focal consolidation is seen within the lungs. There is no pleural effusion or pneumothorax. There are faint reticular nodular densities within the lung bases, predominantly on the right. Mild left lower lobe peribronchial thickening is noted. There is no hilar, mediastinal, or axillary lymphadenopathy. The heart size is within normal limits. There is no pericardial effusion. The thoracic aorta appears normal in caliber. Coronary artery calcification is noted. Within the visualized portion of the upper abdomen, there is a coarse calcification within the superolateral aspect of the left kidney, unchanged when compared to the study from 2016. No lytic or blastic lesions are seen on the bone windows. IMPRESSION: No evidence of pulmonary embolism. No focal consolidation is seen within the lungs. There are faint reticular nodular densities within the left and right lower lobes, predominantly on the right. This is most commonly seen in the setting of infectious bronchiolitis. There is also mild left lower lobe peribronchial thickening. Computed Tomography Report Coarse calcification within the superolateral aspect of the left kidney is stable when compared to an older exam from 2016. Report Dictated on Final Dictating Physician: MD LICONA JONATHAN R Signed Date and Time: 11/14/2021 6:50 am Signed by: MD LIVAN, LIANNE Swain Date and Time: 11/14/2021 6:51 Normal [facility] D-Dimer, Innovanceon 022 D-Dimer, Innovance 1.04 mg/L High <0.19-0.50 [facility] Comment on above: Result Comment: Inno delaney D-Dimer values of <0.50 mg/L FEU can be used in combination with a pre-test probability model (e.g. Well's) to exclude pulmonary embolism (PE) disease, as well as an aid in the diagnosis of deep vein thrombosis (DVT). Performed By: #### D DI2 #### [facility] [address] [place] [address] D-Dimer, Quantitativeon 10-29 D-Dimer, Quant 1.04 mg/L High <0.19 - 0.50 [facility] Work Phone: Comment on above: Innovance D-Dimer va lues of <0.50 mg/L FEU can be used in combination with a pre-test probability model (e.g. Well's) to exclude pulmonary embolism (PE) disease, as well as an aid in the diagnosis of deep vein thrombosis (DVT). Interpretation and review of laboratory results Abnormal [facility] Work Phone: Test Performed by [facility], [address] , [address] [facility] Work Phone: ED Provider Noteon 2 ED Provider Note [facility] ED EMERGENCY DEPARTMENT ENCOUNTER Pt Name: Kari Allan Birthdate 1970 Date of evaluation: 11/13/2021 Provider: Saida Carvalho, DO CHIEF COMPLAINT Chief Complaint Patient presents with ? Shortness of Breath ? Cough HISTORY OF PRESENT ILLNESS (Location/Symptom, Timing/Onset, Context/Setting, Quality, Duration, Modifying Factors, Severity) Note limiting factors. I wore a procedure mask for the entirety of this encounter. HPI Kari Allan is a 51 y.o. male who presents to the emergency department with cough, shortness of breath. Patient is a transfer from outside facility, due to inability to place IV to obtain CTA chest. Patient had COVID viral illness several weeks ago, presented to outside hospital for evaluation of cough, shortness of breath. D-dimer was found to be elevated, prompting plan for CTA chest, however unable to obtain IV access for CTA chest. Patient was transferred for IV establishment and CTA chest to be performed. Plan for CTA chest was discussed with on-call radiologist by preceeding ER physician prior to transfer, to confirm that we are able to utilize contrast. Patient denies any sputum production or hemoptysis. Denies any chest pain. Nursing Notes were reviewed. REVIEW OF SYSTEMS (2+ for level 4; 10+ for level 5) Review of Systems All other systems reviewed and are negative. PAST MEDICAL HISTORY Past Medical History: Diagnosis Date ? Anemia ? Anoxic brain damage (HCC) ? Anxiety ? Asthma ? COPD (chronic obstructive pulmonary disease) (HCC) ? Depression ? DVT (deep venous thrombosis) (HCC) ? Encephalopathy ? GERD (gastroesophageal reflux disease) ? Hepatitis ? Hypertension ? Pancreatitis ? PTSD (post-traumatic stress disorder) SURGICAL HISTORY Past Surgical History: Procedure Laterality Date ? APPENDECTOMY ? BACK SURGERY 5 vertabrae fused ? CHOLECYSTECTOMY ? COLONOSCOPY 2014 ? CYST REMOVAL wrist ? GASTROSTOMY TUBE PLACEMENT 03/01/2017 ? UPPER GASTROINTESTINAL ENDOSCOPY 02/16/2017 CURRENT MEDICATIONS Previous Medications ACETAMINOPHEN (TYLENOL) 160 MG/5ML SUSPENSION 20.31 mLs by Per NG tube route every 4 hours as needed for Fever or Pain ASPIRIN 81 MG CHEWABLE TABLET Take 1 tablet by mouth daily BACLOFEN (LIORESAL) 10 MG TABLET Take 10 mg by mouth every 8 hours BISACODYL (DULCOLAX) 5 MG EC TABLET Take 5 mg by mouth daily as needed for Constipation CARVEDILOL (COREG) 3.125 MG TABLET Take 3.125 mg by mouth 2 times daily (with meals) DIVALPROEX (DEPAKOTE) [address] TABLET Take 500 mg by mouth 3 times daily ESCITALOPRAM (LEXAPRO) 20 MG TABLET Take 20 mg by mouth daily FOLIC ACID (FOLVITE) 1 MG TABLET TAKE ONE TABLET BY MOUTH EVERY DAY IPRATROPIUM-ALBUTEROL (DUONEB) 0.5-2.5 (3) MG/3ML SOLN NEBULIZER SOLUTION Inhale 3 mLs into the lungs 2 times daily LEVETIRACETAM (KEPPRA) 750 MG TABLET Take 1 tablet by mouth 2 times daily MAGNESIUM 400 MG CAPS Take 1 tablet by mouth 3 times daily (with meals) MAGNESIUM HYDROXIDE (MILK OF MAGNESIA) 400 MG/5ML SUSPENSION Take 30 mLs by mouth daily as needed for Constipation MELATONIN 3 MG TABS TABLET Take 3 mg by mouth nightly as needed MENTHOL, TOPICAL ANALGESIC, (BIOFREEZE) 4 % GEL Apply topically MICONAZOLE (MICOTIN) 2 % POWDER Apply topically 2 times daily. MIRTAZAPINE (REMERON) 7.5 MG TABLET Take 7.5 mg by mouth nightly NALTREXONE (DEPADE) 50 MG TABLET Take 50 mg by mouth daily PANTOPRAZOLE (PROTONIX) 40 MG TABLET Take 40 mg by mouth daily POLYETHYLENE GLYCOL 1450 POWD by Does not apply route POTASSIUM CHLORIDE 20 MEQ/15ML (10%) ORAL SOLUTION 15 mLs by Per G Tube route daily PROBIOTIC PRODUCT (FLORAJEN BIFIDOBLEND) CAPS 2 capsules by PEG Tube route daily (with breakfast) PYRIDOXINE (B-6) 25 MG TABLET Take 25 mg by mouth daily QUETIAPINE (SEROQUEL) 100 MG TABLET Take 100 mg by mouth 3 times daily VITAMIN B-1 (THIAMINE) 100 MG TABLET 1 tablet by PEG Tube route daily VITAMIN D (CHOLECALCIFEROL) 125 MCG (5000 UT) CAPS CAPSULE Take 5,000 Units by mouth daily ALLERGIES Haloperidol lactate and Other FAMILY HISTORY Family History Problem Relation Age of Onset ? Diabetes Mother ? Diabetes Brother SOCIAL HISTORY Social History Socioeconomic History ? Marital status: Single Spouse name: None ? Number of children: None ? Years of education: None ? Highest education level: None Occupational History ? None Tobacco Use ? Smoking status: Former Smoker Packs/day: 0.50 Years: 20.00 Pack years: 10.00 Types: Cigarettes ? Smokeless tobacco: Never Used Substance and Sexual Activity ? Alcohol use: Not Currently Comment: pt states makes 2 stiff drinks with vodka, 3-4 times a week ? Drug use: Not Currently ? Sexual activity: None Other Topics Concern ? None Social History Narrative ? None Social Determinants of Health Financial Resource Strain: ? Difficulty of Paying Living Expenses: (more content not included)... Normal [facility] Hemogram w/ Autodiffon 11-14 Abs Baso Cnt 0.1 10*3/uL Normal 0.0-0.2 [facility] Comment on above: Performed By: #### T ROPN, BMP3, HEMDF #### [facility] [address] [place] [address] Abs Neutrophile Cnt 4.4 10*3/uL Normal 1.8-7.0 [facility] Comment on above: Performed By: #### T ROPN, BMP3, HEMDF #### [facility] [address] [place] [address] Basophils/100 WBC (Bld) 1.0 % Normal 0.0-2.0 [facility] Comment on above: Performed By: #### T ROPN, BMP3, HEMDF #### [facility] [address] [place] [address] Eosinophils (Bld) [#/Vol] 0.2 10*3/uL Normal 0.0-0.5 [facility] Comment on above: Performed By: #### T ROPN, BMP3, HEMDF #### [facility] [address] [place] [address] Eosinophils/100 WBC (Bld) 2.3 % Normal 1.0-6.0 [facility] Comment on above: Performed By: #### T ROPN, BMP3, HEMDF #### [facility] [address] [place] [address] Erythrocyte distribution width (RBC) [Ratio] 12.8 % Normal 11.5-14.5 [facility] Comment on above: Performed By: #### T ROPN, BMP3, HEMDF #### [facility] [address] [place] [address] Granulocytes/100 WBC (Bld) 57.9 % Normal 40.0-80.0 [facility] Comment on above: Performed By: #### T ROPN, BMP3, HEMDF #### [facility] [address] [place] [address] Hematocrit (Bld) [Volume fraction] 44.0 % Normal 40.0-52.0 [facility] Comment on above: Performed By: #### T ROPN, BMP3, HEMDF #### [facility] [address] [place] [address] Hemoglobin (Bld) [Mass/Vol] 15.5 g/dL Normal 13.0-18.0 [facility] Comment on above: Performed By: #### T ROPN, BMP3, HEMDF #### [facility] [address] [place] [address] Lymphocytes (Bld) [#/Vol] 1.6 10*3/uL Normal 1.0-4.3 [facility] Comment on above: Performed By: #### T ROPN, BMP3, HEMDF #### [facility] [address] [place] [address] Lymphocytes/100 WBC (Bld) 20.9 % Normal 20.0-40.0 [facility] Comment on above: Performed By: #### T ROPN, BMP3, HEMDF #### [facility] [address] [place] [address] MCH (RBC) [Entitic mass] 31.3 pg Normal 26.0-34.0 [facility] Comment on above: Performed By: #### T ROPN, BMP3, HEMDF #### [facility] [address] [place] [address] MCHC 35.2 % Normal 32.0-36.0 [facility] Comment on above: Performed By: #### T ROPN, BMP3, HEMDF #### [facility] [address] [place] [address] MCV (RBC) [Entitic vol] 88.7 fL Normal 80.0-98.0 [facility] Comment on above: Performed By: #### T ROPN, BMP3, HEMDF #### [facility] [address] [place] [address] Monocytes (Bld) [#/Vol] 1.2 10*3/uL High 0.0-0.8 [facility] Comment on above: Performed By: #### T ROPN, BMP3, HEMDF #### [facility] [address] [place] [address] Monocytes/100 WBC (Bld) 16.2 % High 2.0-10.0 [facility] Comment on above: Performed By: #### FRANCIS CHANG, HEMDF #### [facility] [address] [place] [address] Platelet mean volume (Bld) [Entitic vol] 9.1 fL Normal 7.4-12.4 [facility] Comment on above: Result Comment: MPV is a calculated measurement using platelet volume ratio. Performed By: #### FRANCIS CHANG, HEMDF #### [facility] [address] [place] [address] Platelets (Bld) [#/Vol] 204 10*3/uL Normal 140-440 [facility] Comment on above: Performed By: #### FRANCIS CHANG, HEMDF #### [facility] [address] [place] [address] RBC (Bld) [#/Vol] 4.96 10*6/uL Normal 4.40-5.90 [facility] Comment on above: Performed By: #### FRANCIS CHANG, HEMDF #### [facility] [address] [place] [address] WBC (Bld) [#/Vol] 7.7 10*3/uL Normal 3.6-10.7 [facility] Comment on above: Performed By: #### FRANCIS CHANG, HEMDF #### [facility] [address] [place] [address] No Panel Informationon 11-14 Test Performed by [facility], [address] , [place], [place] [id number] [place] [address] [facility] Work Phone: SARS-CoV-2, Flu A/B and RSVo n 11-14-2021 SARS-CoV-2 (COVID-19) RNA LASHA+probe Ql (Unsp spec) SARS-CoV-2 --> Status: F Not Detected. Flu A PCR --> Status: F Not Detected. Flu B PCR --> Status: F Not Detected. RSV PCR --> Status: F Not Detected. Expected Result: Not Detected _ Method: Real-time, RT-PCR This assay was developed by [employer] and distributed under an Emergency Use Authorization (EUA) granted by the FDA for the qualitative detection of nucleic acids from SARS-CoV-2, Influenza A, Influenza B, and Respiratory Syncytial Virus. Provider and patient fact sheets can be found at https://www.[place].gov/media/ 28318/download and https://www.[place].gov/media/36/download. Expected Result: Not Detected _ Method: Real-time, RT-PCR This assay was developed by [employer] and distributed under an Emergency Use Authorization (EUA) granted by the FDA for the qualitative detection of nucleic acids from SARS-CoV-2, Influenza A, Influenza B, and Respiratory Syncytial Virus. Provider and patient fact sheets can be found at https://www.[place].gov/media/ 28050/download and https://www.[place].gov/media/36/download. Normal [facility] Comment on above: Performed By: #### C VFLR #### [facility] [address] [place] [address] , [address] Troponin Ion 11-14-2021 Troponin I.cardiac [Mass/Vol] ng/mL Normal 0.000-0.03 4 [facility] Comment on above: Result Comment: Slig htly hemolysed, interpret with caution. . Performed By: #### T ROPN, BMP3, HEMDF #### [facility] [address] [place] [address] Troponin x1on 11-14-2021 Troponin I.cardiac [Mass/Vol] ng/mL 0.000 - 0.034 ng/mL [facility] Work Phone: Comment on above: Slightly hemolysed, interpret with caution. . XR CHEST (2 VW)on 11-14-2021 Patient Name: KARI MUHAMMAD Diagnostic Radiology ACCESSION EXAM DATE/TIME PROCEDURE ORDERING PROVIDER [id number] 11/14/2021 00:25 EDT CR Chest PA & LAT MD WILLIAM, KWAME CPT code 91530 Reason For Exam (CR Chest PA & LAT) cough Report CHEST X-RAY PA/LATERAL CLINICAL INDICATION: Cough Frontal and lateral plain films of the chest were obtained. COMPARISON: 03/02/2017 FINDINGS: The cardiac silhouette is within normal limits. No focal consolidation is seen within the lungs. No pleural effusion or pneumothorax is identified. The bony structures of the chest are unremarkable as visualized for the patient's age. IMPRESSION: No acute cardiopulmonary disease. Report Dictated on --- Final --- Dictating Physician: MD LICONA JONATHAN R Signed Date and Time: 11/14/2021 0:33 am Signed by: MD LICONA JONATHAN R Transcribed Date and Time: 11/14/2021 0:34 [facility] Lianne Bullock MD - 11/14/2021 Patient Name: KARI ALLAN Diagnostic Radiology ACCESSION EXAM DATE/TIME PROCEDURE ORDERING PROVIDER [id number] 11/14/2021 00:25 EDT CR Chest PA & LAT MD WILLIAM KWAME CPT code 44793 Reason For Exam (CR Chest PA & LAT) cough Report CHEST X-RAY PA/LATERAL CLINICAL INDICATION: Cough Frontal and lateral plain films of the chest were obtained. COMPARISON: 03/02/2017 FINDINGS: The cardiac silhouette is within normal limits. No focal consolidation is seen within the lungs. No pleural effusion or pneumothorax is identified. The bony structures of the chest are unremarkable as visualized for the patient's age. IMPRESSION: No acute cardiopulmonary disease. Report Dictated on --- Final --- Dictating Physician: MD LICONA JONATHAN R Signed Date and Time: 11/14/2021 0:33 am Signed by: MD LICONA JONATHAN R Transcribed Date and Time: 11/14/2021 0:34 [facility] Work Phone: Radiology Study observation (narrative) [facility] Work Phone: XR CHEST (2 VW)Ordered By: Luis Alberto Licona on 11-14-2021 [facility] Work Phone: Laboratory - Microbiology an d Antimicrobial susceptibilityon 10-21-2021 SARS-CoV-2 (COVID-19) RNA LASHA+probe Ql (Unsp spec) Detected Not Detect [facility] Work Phone: Comment on above: Normal Reference Ran ge: Not DetectedMethod:(RT-PCR) real-time reverse transcriptase PCRLuminex EMILIE Instrument*The Food and Drug Administration (FDA) has issued an Emergency Use Authorization (EAU) for the EMILIE SARS-CoV-2 Assay for the rapid detection of the virus that causes COVID-19. This test has been validated, but the FDAs independent review of this validation is pending.*Negative results do not preclude infection and should not be used as the sole basis for treatment or patient management. Optimum specimen types and timing for peak viral levels during infections caused by SARS-CoV-2 have not been determined. Collection of multiple specimens from the same patient may be necessary to detect the virus. The possibility of a false negative result should be considered if the patient has clinical presentation or has had recent exposure. Basophil percentageon 2021 Cholesterol [Mass/Vol] 236 mg/dL <200 [facility] Work Phone: Comment on above: <200 mg/dL Desirable 200-240 mg/dL Borderline >240 mg/dL High Risk Triglyceride [Mass/Vol] 242 mg/dL [facility] Work Phone: Comment on above: The drugs N-Acetylcy steine and Metamizole may falsely depress this assay.Serum Triglycerides Reference Interval Normal <150 mg/dL Borderline high 150 - 199 mg/dL High 200 - 499 mg/dL Very High > or = 500 mg/dL Laboratory - Chemistry and C hemistry - challengeon 10-06-2021 Cobalamin (Vitamin B12) [Mass/Vol] 654 pg/mL 211-911 [facility] Work Phone: No Panel Informationon 10-06 Levetiracetam (Keppra) Level 22.8 ug/mL [facility] Work Phone: Comment on above: Performed at: [address] [id number] Director: Serena Merida MD, Phone: [phone] Thyroid Stimulating Hormone (TSH) 2.65 uIU/mL 0.358-3.74 [facility] Work Phone: Valproic Acid (Depakene) Level 67 ug/mL 50-100 [facility] Work Phone: Vitamin D 25-Hydroxy 87.6 ng/mL [facility] Work Phone: Comment on above: Vitamin D 25(OH) Sta tus Range Deficiency <20 ng/mL (50nmol/L) Insufficiency 20 - 30 ng/mL (50 - 75 nmol/L) Sufficiency 30 - 100 ng/mL (75 - 250 nmol/L) Toxicity >100 ng/mL (>250 nmol/L) Serum or plasma cholesterol in HDL measurement (mass/volume)on 10-06-2021 Cholesterol in HDL [Mass/Vol] 34 mg/dL [facility] Work Phone: Comment on above: The drugs N-Acetylcy steine and Metamizole may falsely depress this assay. Reference Range HDL <40 mg/dL Low HDL Cholesterol HDL >or= 60 mg/dL High HDL Cholesterol Serum or plasma cholesterol in VLDL measurement (mass/volume)on 10-06-2021 Cholesterol in VLDL [Mass/Vol] 48 mg/dL 5-40 [facility] Work Phone: Serum or plasma folate measu rement (mass/volume)on 10-06-2021 Folate [Mass/Vol] 19.20 ng/mL 3.1-55.4 [facility] Work Phone: Serum or plasma low density lipoprotein (LDL) cholesterol measurement (mass/volume)on 10-06-2021 Cholesterol in LDL [Mass/Vol] 154 mg/dL 0-130 [facility] Work Phone: Whole blood hemoglobin A1c/t otal hemoglobin ratio (mass fraction)on 10-06-2021 HbA1c (Bld) [Mass fraction] 5.5 % 3.8-5.6 [facility] Work Phone: Comment on above: Normal < 5.7 % Predi abetic 5.7 - 6.4 % Diabetic >or= 6.5 % Please note range changes. Absolute lymphocyte counton 09-29-2021 Lymphocytes Auto (Unsp spec) [#/Vol] 2.51 10*3/uL 0.83-4.51 [facility] Work Phone: Basophil percentageon 2021 Basophils/100 WBC (Bld) 0.9 % 0-1 [facility] Work Phone: Bilirubin [Mass/Vol] 0.40 mg/dL 0.20-1.00 [facility] Work Phone: Comment on above: For patients on eltr ombopag therapy, use of Dimension [place] TBIL is not recommended. Chloride [Moles/Vol] 107 mmol/L 98-107 [facility] Work Phone: [phone] Eosinophils/100 WBC (Bld) 7.3 % 0-5 [facility] Work Phone: [phone] Glucose [Mass/Vol] 91 mg/dL 74-106 [facility] Work Phone: Neutrophils (Bld) [#/Vol] 2.2 10*3/uL 2.0-7.7 [facility] Work Phone: Neutrophils/100 WBC (Bld) 37.5 % 47-70 [facility] Work Phone: Potassium [Moles/Vol] 4.0 mmol/L 3.5-5.1 [facility] Work Phone: Comment on above: Slight Hemolysis, Re sult may be falsely increased. Protein [Mass/Vol] 6.8 g/dL 6.4-8.2 [facility] Work Phone: Sodium [Moles/Vol] 137 mmol/L 136-145 [facility] Work Phone: WBC (Bld) [#/Vol] 5.8 10*3/uL 4.4-11.0 [facility] Work Phone: [phone] Blood erythrocytes count (nu mber/volume)on 09-29-2021 RBC (Bld) [#/Vol] 4.82 10*6/uL 4.6-6.2 [facility] Work Phone: Blood hemoglobin measurement (mass/volume)on 09-29-2021 Hemoglobin (Bld) [Mass/Vol] 14.8 g/dL 13.0-16.5 [facility] Work Phone: Blood lymphocytes/100 leukoc yteson 09-29-2021 Lymphocytes/100 WBC (Bld) 43.5 % 19-41 [facility] Work Phone: [phone] Blood monocytes/100 leukocyt eson 09-29-2021 Monocytes/100 WBC (Bld) 10.1 % 0-10 [facility] Work Phone: Blood platelet mean volumeon 09-29-2021 Platelet mean volume (Bld) [Entitic vol] 9.0 fL 6.2-12.0 [facility] Work Phone: Determination of erythrocyte mean corpuscular volume (MCV)on 09-29-2021 MCV (RBC) [Entitic vol] 91.3 fL 80-94 [facility] Work Phone: Hematocrit Auto (Bld) [Volum e fraction]on 09-29-2021 Hematocrit (Bld) [Volume fraction] 44.0 % 40-54 [facility] Work Phone: Laboratory - Chemistry and C hemistry - challengeon 09-29-2021 ALP [Catalytic activity/Vol] 59 U/L 45-117 [facility] Work Phone: ALT [Catalytic activity/Vol] 82 U/L 16-61 [facility] Work Phone: CO2 [Moles/Vol] 25.0 mmol/L 21.0-32.0 [facility] Work Phone: Globulin (S) [Mass/Vol] 3.6 g/dL 2.2-4.2 [facility] Work Phone: Urea nitrogen/Creatinine [Mass ratio] 8.1 mg/mg 10-20 [facility] Work Phone: Laboratory - Hematology and Cell countson 09-29-2021 Erythrocyte distribution width (RBC) [Entitic vol] 44.9 fL 35.1-43.9 [facility] Work Phone: Erythrocyte distribution width (RBC) [Ratio] 13.3 % 11.6-14.6 [facility] Work Phone: Immature granulocytes/100 WBC (Bld) 0.700 % 0.0-0.9 [facility] Work Phone: Comment on above: IG% - Immature Granu locytes (promyelocytes, myelocytes and metamyelocytes) > 1% indicates that a LEFT SHIFT is Present. MCH (RBC) [Entitic mass] 30.7 pg 27.0-32.0 [facility] Work Phone: Nucleated RBC/100 WBC (Bld) [Ratio] 0 % 0-5 [facility] Work Phone: MCHC Auto (RBC) [Mass/Vol]on 09-29-2021 MCHC (RBC) [Mass/Vol] 33.6 g/dL 32-36 [facility] Work Phone: No Panel Informationon 09-29 Estimated GFR (MDRD) Amer 78 mL/min >60 [facility] Work Phone: Comment on above: GFR Calc Estimated GFR (MDRD) Non-Af Amer 65 mL/min >60 [facility] Work Phone: Comment on above: Non- GFR Calc Platelets bldon 09-29-2021 Platelets (Bld) [#/Vol] 193 10*3/uL 150-450 [facility] Work Phone: Serum or plasma albumin zakiya urement (mass/volume)on 09-29-2021 Albumin [Mass/Vol] 3.2 g/dL 3.2-5.0 [facility] Work Phone: Serum or plasma albumin/glob ulin mass ratioon 09-29-2021 Albumin/Globulin [Mass ratio] 0.9 {ratio} 0.9-2.4 [facility] Work Phone: Serum or plasma calcium zakiya urement (mass/volume)on 09-29-2021 Calcium [Mass/Vol] 9.0 mg/dL 8.5-10.1 [facility] Work Phone: Serum or plasma creatinine m easurement (mass/volume)on 09-29-2021 Creatinine [Mass/Vol] 1.24 mg/dL 0.70-1.30 [facility] Work Phone: Comment on above: The validity of the calculated GFR & GFRAA in patients over 70 years has not been determined. Clinical correlation is essential. Serum or plasma urea nitroge n measurement (mass/volume)on 09-29-2021 Urea nitrogen [Mass/Vol] 10 mg/dL 7-18 [facility] Work Phone: Thin prep Papanicolaou smear with manual screeningon 09-29-2021 Thin prep Papanicolaou smear with manual screening 51 U/L 15-37 [facility] Work Phone: Comment on above: Slight Hemolysis, Re sult may be falsely increased. Thin prep Papanicolaou smear with manual screening 5 5-15 [facility] Work Phone: CASE MANAGEMon 03-11-2020 CASE MANAGEM HNO ID: [id number] Author: Ulysses Prescott (Sw) Service: Social Work Author Type: Payroll Master Type: Care Mgt Progress Note Filed: 03/11/2020 11:27 AM Note Text: BEHAVIORAL HEALTH SOCIAL WORK DISCHARGE NOTE SERVICE DATE: 03/11/2020 SERVICE TIME: 11:20 am Discharge Information Row Name ED to Hosp-Admission (Current) from 03/06/2020 in [facility] 2B Psychiatry Follow-Up Appointment Agency ? At the Snf Appointment Time TBA Medical Follow-Up Appointment Appointment Time TBA Discharge Disposition Discharge Disposition Snf Snf Referral Information Agency Name [facility] [place] Address ? 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 Date of Trip: 03/11/2020 Type of Service: ALS Non-emergency Is Patient Medicaid Pending: No PRESCRIPTIONS FILLED PRIOR TO DISCHARGE: No, patient discharged to halfway ADDITIONAL NOTES: Patient is calm and pleasant regarding a return to halfway. Spoke to Karo, Legal Guardian about patient returning today. This worker coordinating transfer back to [facility] with Kailey Manzo. SIGNATURE: DANIKA Segundo PATIENT NAME: Kari Allan DATE: March 11, 2020 TIME: 11:20 AM [facility] NURSING PROGon 03-11-2020 NURSING PROG HNO ID: [id number] Author: Pamella (Rn) BEN Javier Service: Behavioral Health Author Type: Registered Nurse Type: Nursing Progress Note Filed: 03/11/2020 12:04 PM Note Text: Nursing Progress Note Patient Name: Kari Allan Patient Location: [address]/[place] [address] Daily Note:Pt. was discharge to [facility] . Pt. had met all hospital goals . Pt. reports to admission symptoms are no longer evident. Pt. belongings were returned . Pt. was ready for discharge . Pt. had verbalized understanding of discharge instructions with follow-up appointments and home-going medication(s) and /or scripts. Pt. safety maintained. Nurse to nurse report given to facility staff nurse , Jose Carlos. This note was completed by: Pamella Javier RN [facility] PLAN OF CAREon 03-11-2020 PLAN OF CARE HNO ID: [id number] Author: Lyric Mg (Pharmacist) Service: Pharmacy Author Type: Pharmacist Type: Plan of Care Filed: 03/11/2020 11:52 AM Note Text: DISCHARGE MEDICATION REVIEW BY PHARMACY Patient Name: Kari Allan Account #: Data Unavailable Admission Date: 03/06/2020 Date of Contact: March 11, 2020 Time of Contact: 11:50 AM Medication list was reviewed by a Pharmacist for drug interactions or drug related problems:Yes Below is a summary of pharmacist recommendations discussed with LIP: No Recommendations at this time from Discharge Medication List. Lyric Mg, Pharmacist March 11, 2020 11:50 AM Pager: [phone] 03/11/2020 11:50 AM Medication List START taking these medications divalproex sprinkle 125 mg capsule Commonly known as: DEPAKOTE SPRINKLES Take 4 capsules by mouth three times daily. naltrexone 50 mg tablet Commonly known as: TREXAN Take 1 tablet by mouth once daily. CONTINUE taking these medications acetaminophen 325 mg tablet Commonly known as: TYLENOL Take 2 tablets by mouth every 6 hours as needed for Pain. baclofen 10 mg tablet Commonly known as: LIORESAL Take 1 tablet by mouth three times daily as needed (muscle spasms). cholecalciferol 5,000 unit Tab Commonly known as: Vitamin D-3 Take 1 tablet by mouth once daily. escitalopram oxalate 20 mg tablet Commonly known as: LEXAPRO Take 1 tablet by mouth once daily. ferrous sulfate 300 mg (60 mg iron)/5 mL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 VERIFY PATCH OTHER q 8 H - escitalopram oxalate 20 mg tab(s) (LEXAPRO) 20 mg ORAL DAILY - nicotine 14 mg/24 hr 1 Patch (NICODERM) 1 Patch TRANSDERMAL DAILY And - nicotine -- REMOVE patch OTHER DAILY And - nicotine - verify patch OTHER q 8 H - baclofen 10 mg tab(s) (LIORESAL) 10 mg ORAL TID PRN - ibuprofen 400 mg tab(s) (MOTRIN) 400 mg ORAL TID PRN - benzocaine-menthol 1 Lozenge (CEPACOL) 1 Lozenge MUCOUS MEMBRANE (TOPICAL MOUTH AND THROAT) q 2 H PRN - capsaicin 0.025 % cream (ZOSTRIX) TOPICAL TID PRN DATA: Diagnostic tests reviewed for today's visit: Most recent labs Free T4 processed 12/11: 0.9 (normal) T4/Thyroxine 12/09: 4.3 (low) TSH 12/04: 5.170 (mildly elevated) Assessment/Plan DIAGNOSIS: 1. 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 Alcohol dependence in remission 3. Impulse control disorder 4. Subclinical Hypothyroidism: based on normal free T4 and mildly elevated TSH. Will continue to monitor for any worsening of thyroid symptoms. GAF: -40-31 Some impairment in reality testing or communication or major impairment in several areas. RISK ASSESSMENT: Suicide: low Homicide: low Deliberate Self-Harm: low Aggression: low Imminent Physical Self Impairment: low INFORMED CONSENT: Yes, completed with the Guardian. Discussed the risks, benefits and alternatives to the medication(s) recommended. Consent was given. INTERVENTION: Biological: - continue Depakote 500 mg TID - continue Lexapro 20 mg daily - continue Keppra 750mg BID - continue Seroquel 100 mg BID, and 200 mg at bedtime Psychological: Insight, Groups Social: Milieu DISCHARGE PLANNING: Discharge by the middle of the week. SIGNATURE: Nimco Singh MD PATIENT NAME: Kari Allna DATE: December 12, 2019 TIME: 8:16 AM PAGER/CONTACT#: See online directory [facility] Psychiatry Staff: TEACHING PHYSICIAN NOTE OF PERSONAL INVOLVEMENT IN CARE I have reviewed the note obtained and documented by the resident and I personally participated in the schultz components. I have discussed the case and management of the patient's care with this individual. The following comments revise or confirm relevant components of the note: Impression: encephalopathy secondary to anoxic brain injury' Alcohol dependence in remission Impulse control disorder Plan: As above, made with my input Engage in milieu I spent 30 minutes in the visit, with more than 50% of the total jrfz-bs-hpuu time of the visit in counseling / coordination of care. Rosalie Gomez MD Date of Attending Encounter: 12/12/2019 [facility] CASE MANAGEMon 12-11-2019 CASE MANAGEM HNO ID: [id number] Author: Cate Lauren (Sw) Service: Social Work Author Type: Payroll Master Type: Care Mgt Progress Note Filed: 12/11/2019 4:29 PM Note Text: BEHAVIORAL HEALTH SOCIAL WORK PROGRESS NOTE SERVICE DATE: 12/11/2019 SERVICE TIME: 1:13 PM Pt reviewed in treatment team; pt continues to stabilize. MIRNA received Resident Review from [facility]; Resident Review FaxAttached into Ecin and original placed in paper chart. MIRNA updated [facility] via Ecin that we still do not have an accepting facility. Gina from [facility] offered the names of several more facilities. MIRNA discussed additional facilities with sister/GDN Karo: [facility] (has refused to accept pt in the past), [facility] (has already denied), [facility], and [facility] in [place] (per recommendation of the sister facility, [facility]). Karo provides consent for this entry writer to forward additional referrals to [facility] and [place]. [facility] and [facility]. SW to continue to follow. SIGNATURE: CRISTINA Rinaldi PATIENT NAME: Kari Allan DATE: December 11, 2019 TIME: 1:13 PM [facility] Free T4on 12-11-2019 Free T4 [Mass/Vol] 0.9 ng/dL Normal 0.9-1.7 [facility] Comment on above: Performed By: #### F T4 #### [facility] [address] [address] NURSING PROGon 12-11-2019 NURSING PROG HNO ID: [id number] Author: Vanna (Rn) BEN Roberson Service: Nursing Author Type: Registered Nurse Type: Nursing Progress Note Filed: 12/11/2019 9:52 PM Note Text: Nursing Progress Note Patient Name: Kari Allan Patient Location: [address]/[id number] Daily Note: Assumed care of pt at 1530. Pt observed out of room in [place] socializing with peers appropriately. Pt in room resting upon assessment. Pt denies SI/HI/AVH anxiety and depression. Pt calm, and cooperative. No complaints voiced. 1700: Pt compliant with T4/ Free thyroxine blood draw. 2330: Pt compliant with scheduled medications. Pt requested and given PRN Tylenol for c/o of back pain. Pt remains forgetful, but redirectable. This note was completed by: Vanna Roberson RN [facility] NURSING PROG HNO ID: [id number] Author: Radha MedinaRn) BEN Ramos Service: Nursing Author Type: Registered Nurse Type: Nursing Progress Note Filed: 12/11/2019 2:43 PM Note Text: Nursing Progress Note Patient Name: Kari Allan Patient Location: / Daily Note: Patient up in day area upon assessment. Patient denied SI/HI/AVH at this time. Patient also denied current feelings of depression and pain. Patient endorsed some anxiety but noted it was manageable at this time. Patient stated he was having some abdominal discomfort and was unable to finish eating his lunch. Patient started taking his afternoon pills then stated he was feeling nauseated. Patient escorted to the nearest bathroom but stated the nausea alleviated itself. Patient then stated he was able to take the Seroquel but needed help taking the Depakote sprinkles. Patient able to take medication sprinkled over applesauce without problem. Patient then returned to his room to rest for the afternoon. No further wants or needs noted at this time. This note was completed by: Radha Ramos RN [facility] NURSING [facility] ID: [id number] Author: Gaurav MedinaRn) Ashwin RN Service: ? Author Type: Registered Nurse Type: Nursing Progress Note Filed: 12/11/2019 10:52 AM Note Text: Nursing Progress Note Patient Name: Kari Allan Patient Location: /[id number] Daily Note: Eval of IDTP: Pt is A AND O X 2, alert to person and place. Pt is OOR, using wheel chair. Pt is disheveled in appearance, dressed in hospital clothing. Pt states I'm anxious and depressed about being here, I want to get out of here. Pt denies suicidal or homicidal ideation at this time. Pt denies audio or visual hallucinations at this time. Pt took his scheduled medication without resistance. Pt has not been a behavioral problem or had any outburst. No signs of distress, will continue to monitor Q 15 minutes on safety rounds. This note was completed by: Gaurav Christopher RN [facility] NURSING [facility] ID: [id number] Author: Chantal MedinaRn) BEN Razo Service: Nursing Author Type: Registered Nurse Type: Nursing Progress Note Filed: 12/11/2019 6:14 AM Note Text: Nursing Progress Note Patient Name: Kari Allan Patient Location: [facility]/[id number] Daily Note: 0300 - Assumed pt care at this time. Pt is resting in bed. Resps even and unlabored. Wheelchair at bedside. >>Pt rested about 8 hours total. Safety maintained. This note was completed by: Chantal Razo RN [facility] NURSING [facility] ID: [id number] Author: Billy MedinaRnLatonya Ledezma RN Service: ? Author Type: Registered Nurse Type: Nursing Progress Note Filed: 12/10/2019 10:37 PM Note Text: Nursing Progress Note Patient Name: Kari Allan Patient Location: [facility]/[id number] Daily Note: Assumed care of pt at 1930. Pt visible on the unit utilizing wheelchair. Pt appears disheveled. Pt describes his mood as Im ok. Pt endorses a little depression, nothing serious, I want to go home smiles and laughs. Pt denies S/HI, A/VH, and anxiety. Pt compliant with HS medications. This note was completed by: Billy Ledezma RN [facility] PROGRESSon 12-11-2019 PROGRESS HNO ID: [id number] Author: Rosalie Gomez Service: Psychiatry Author Type: Physician Type: Progress Notes Filed: 12/11/2019 6:33 PM Note Text: PROGRESS NOTE BEHAVIORAL HEALTH SERVICE DATE: 12/11/2019 SERVICE TIME: 10:27AM The Interdisciplinary team met and reviewed treatment goals and discharge planning. Subjective Pt states he is OK and slept well last night. Reports having some trouble falling asleep due to back pain. Continues to perseverate on getting Valium for his back pain. Recounts previous treatment of back pain which seems to have been prior to brain injury in 2017. Denies any suicidal or homicidal thinking. Thoughts are fixated on back. Objective PHYSICAL EXAM: BP 127/85 Pulse 96 Temp 36.7 ?C (98.1 ?F) (Oral) Resp 16 Ht 177.8 cm (5' 10) Wt 87.1 kg (192 lb) SpO2 98% BMI 27.55 kg/m? MENTAL STATUS EXAMINATION: Appearance: in a hospital gown and in wheelchair Behavior: Calm, cooperative with interview Orientation: Person, though does get day of the week today (though this appears to have been a random guess) Speech/Language: The patient demonstrates appropriate tone, prosody, fanta, phonetics, and syntax Mood/Affect: OK/Flat Thought Form: Perseverative Thought Content: Coherent Suicidal Ideations: No suicidal ideation, intent or plan. Homicidal Ideations: No homicidal ideation, intent or plan. Insight: Limited Judgment: Limited Memory/Cognition: Impaired Psychomotor: Psychomotor activity was normal NEW PROBLEMS ON UNIT SINCE LAST ENCOUNTER: None Current Facility-Administered Medications Medication Dose Route Frequency - nicotine polacrilex 2 mg gum (NICORETTE) 2 mg ORAL q 2 H PRN - LORazepam 2 mg (ATIVAN) 2 mg ORAL q 4 H PRN Or - LORazepam 2 mg injection (ATIVAN) 2 mg INTRAMUSCULAR q 4 H PRN - hydrOXYzine HCl 50 mg tab(s) (ATARAX) 50 mg ORAL q 4 H PRN - acetaminophen 650 mg tab(s) (TYLENOL) 650 mg ORAL q 6 H PRN - aluminum-magnesium hydroxide-simethicone 200-200-20 mg/5 mL 30 mL (MAALOX,MYLANTA,MAG-AL PLUS) 30 mL ORAL q 4 H PRN - magnesium hydroxide 400 mg/5 mL 30 mL (MOM) 30 mL ORAL DAILY PRN - diphenhydrAMINE 50 mg injection (BENADRYL) 50 mg INTRAMUSCULAR q 30 MIN PRN - ziprasidone 20 mg injection (GEODON) 20 mg INTRAMUSCULAR q 4 H PRN - traZODone 50 mg tab(s) (DESYREL) 50 mg ORAL HS PRN - divalproex sprinkle 500 mg cap(s) (DEPAKOTE SPRINKLES) 500 mg ORAL TID - sucralfate 1 g tab(s) (CARAFATE) 1 g ORAL AC and HS - levETIRAcetam 750 mg CUP (KEPPRA) 750 mg ORAL BID - QUEtiapine 100 mg tab(s) (SEROquel) 100 mg ORAL BID (q 4 H) - QUEtiapine 200 mg tab(s) (SEROquel) 200 mg ORAL AT BEDTIME - folic acid 1 mg tab(s) 1 mg ORAL DAILY - ferrous sulfate 300 mg oral liquid 300 mg ORAL BID - polyethylene glycol 3350 17 g packet (MIRALAX, GLYCOLAX) 17 g ORAL DAILY - pantoprazole DR 40 mg tab(s) (PROTONIX) 40 mg ORAL BID AC (0600/1600) - thiamine 100 mg tab(s) (VITAMIN B1) 100 mg ORAL DAILY - cyanocobalamin 100 mcg tab(s) (VITAMIN B-12) 100 mcg ORAL DAILY - pyridoxine (vitamin B6) 25 mg tab(s) (VITAMIN B6) 25 mg ORAL DAILY - melatonin 3 mg tab(s) 3 mg ORAL AT BEDTIME - lidocaine 4 % 1 Patch (SALONPAS) 1 Patch TRANSDERMAL DAILY AT 9 PM And - lidocaine patch - REMOVE OTHER DAILY And - lidocaine - VERIFY PATCH OTHER q 8 H - escitalopram oxalate 20 mg tab(s) (LEXAPRO) 20 mg ORAL DAILY - nicotine 14 mg/24 hr 1 Patch (NICODERM) 1 Patch TRANSDERMAL DAILY And - nicotine -- REMOVE patch OTHER DAILY And - nicotine - verify patch OTHER q 8 H - baclofen 10 mg tab(s) (LIORESAL) 10 mg ORAL TID PRN - ibuprofen 400 mg tab(s) (MOTRIN) 400 mg ORAL TID PRN - benzocaine-menthol 1 Lozenge (CEPACOL) 1 Lozenge MUCOUS MEMBRANE (TOPICAL MOUTH AND THROAT) q 2 H PRN - capsaicin 0.025 % cream (ZOSTRIX) TOPICAL TID PRN DATA: Diagnostic tests reviewed for today's visit: Most recent labs Assessment/Plan DIAGNOSIS: 1. PRIMARY:?Encephalopathy secondary to anoxic brain injury (manifesting as anoxic brain injury) 2. Alcohol dependence in remission 3. Impulse control disorder ? GAF: -40-31 Some impairment in reality testing or communication or major impairment in several areas. ? RISK ASSESSMENT: Suicide: low Homicide: low Deliberate Self-Harm: low Aggression: low Imminent Physical Self Impairment: low ? INFORMED CONSENT: Yes, completed with the Guardian. Discussed the risks, benefits and alternatives to the medication(s) recommended. Consent was given. ? INTERVENTION: Biological: -?continue?Depakote 500 mg TID -?continue?Lexapro?20 mg daily -?continue?Keppra 750mg BID -?continue?Seroquel 100 mg BID, and 200 mg at bedtime ? Psychological: Insight, Groups ? Social: Milieu DISCHARGE PLANNING: Discharge by the middle of the week. SIGNATURE: Franklin Marquis MD PATIENT NAME: Kari Allan DATE: December 11, 2019 TIME: 10:27 AM PAGER/CONTACT#: See online directory .[facility] Psychiatry Staff: TEACHING PHYSICIAN NOTE OF PERSONAL INVOLVEMENT IN CARE I have reviewed the note obtained and documented by the resident and I personally participated in the schultz components. I have discussed the case and management of the patient's care with this individual. The following comments revise or confirm relevant components of the note: Impression: encephalopathy secondary to anoxic brain injury Alcohol dependence in remission Impulse control disorder Plan: As above, made with my input Engage in milieu I spent 30 minutes in the visit, with more than 50% of the total [id number] time of the visit in counseling / coordination of care. Rosalie Gomez MD Date of Attending Encounter: 12/11/2019 Normal [facility] CBC and Differentialon 12-09 Abs Baso 0.03 k/uL Normal <0.11 [facility] Comment on above: Performed By: #### I MOSES, MG1, B12, SERFOL, CBCDIF #### [place] [address] #### VITD #### [place] [address] Abs Hamlin 0.53 k/uL Normal <0.87 [facility] Comment on above: Performed By: #### I MOSES, MG1, B12, SERFOL, CBCDIF #### [place] [address] #### VITD #### [place] [address] Abs Neut 1.75 k/uL Normal 1.45-7.50 [facility] Comment on above: Performed By: #### I MOSES, MG1, B12, SERFOL, CBCDIF #### [place] [address] #### VITD #### [place] [address] Absolute nRBC <0.01 Normal <0.01 [facility] Comment on above: Performed By: #### I MOSES, MG1, B12, SERFOL, CBCDIF #### [place] [address] #### VITD #### [place] [address] Basophils/100 WBC (Bld) 0.6 % Normal [facility] Comment on above: Performed By: #### I MOSES, MG1, B12, SERFOL, CBCDIF #### [place] [address] #### VITD #### [place] [phone] DTYPE Auto Diff Normal [facility] Comment on above: Performed By: #### I MOSES, MG1, B12, SERFOL, CBCDIF #### [place] [address] #### VITD #### [place] [address] Eosinophils (Bld) [#/Vol] 0.41 10*3/uL Normal <0.46 [facility] Comment on above: Performed By: #### I MOSES, MG1, B12, SERFOL, CBCDIF #### [place] [address] #### VITD #### [place] [id number] Eosinophils/100 WBC (Bld) 8.4 % Normal [facility] Comment on above: Performed By: #### I MOSES, MG1, B12, SERFOL, CBCDIF #### [place] [address] #### VITD #### [place] [address] Erythrocyte distribution width (RBC) [Ratio] 17.8 % High 11.5-15.0 [facility] Comment on above: Performed By: #### I MOSES, MG1, B12, SERFOL, CBCDIF #### [place] [address] #### VITD #### [place] [id number] Hematocrit (Bld) [Volume fraction] 41.4 % Normal 39.0-51.0 [facility] Comment on above: Performed By: #### I MOSES, MG1, B12, SERFOL, CBCDIF #### [place] [address] #### VITD #### [place] [phone] Hemoglobin (Bld) [Mass/Vol] 12.6 g/dL Low 13.0-17.0 [facility] Comment on above: Performed By: #### I MOSES, MG1, B12, SERFOL, CBCDIF #### [place] [address] #### VITD #### [place] [phone] Lymphocytes (Bld) [#/Vol] 2.14 10*3/uL Normal 1.00-4.00 [facility] Comment on above: Performed By: #### I MOSES, MG1, B12, SERFOL, CBCDIF #### [place] [address] #### VITD #### [place] [phone] Lymphocytes/100 WBC (Bld) 43.9 % Normal [facility] Comment on above: Performed By: #### I MOSES, MG1, B12, SERFOL, CBCDIF #### [place] [address] #### VITD #### [place] [phone] MCH (RBC) [Entitic mass] 25.5 pG Low 26.0-34.0 [facility] Comment on above: Performed By: #### I MOSES, MG1, B12, SERFOL, CBCDIF #### [place] [address] #### VITD #### [place] [phone] MCHC (RBC) [Mass/Vol] 30.4 g/dL Low 30.5-36.0 [facility] Comment on above: Performed By: #### I MOSES, MG1, B12, SERFOL, CBCDIF #### [place] [address] #### VITD #### [place] [phone] MCV (RBC) [Entitic vol] 83.8 fL Normal 80.0-100.0 [facility] Comment on above: Performed By: #### I MOSES, MG1, B12, SERFOL, CBCDIF #### [place] [address] #### VITD #### [place] [phone] Monocytes/100 WBC (Bld) 10.9 % Normal [facility] Comment on above: Performed By: #### I MOSES, MG1, B12, SERFOL, CBCDIF #### [place] [address] #### VITD #### [place] [phone] Neutrophils/100 WBC (Bld) 36.2 % Normal [facility] Comment on above: Performed By: #### I MOSES, MG1, B12, SERFOL, CBCDIF #### [place] [address] #### VITD #### [place] [phone] NRBCs 0.0 /100 WBC Normal 0 [facility] Comment on above: Performed By: #### I MOSES, MG1, B12, SERFOL, CBCDIF #### [place] [address] #### VITD #### [address] [address] Platelet mean volume (Bld) [Entitic vol] 9.0 fL Normal 9.0-12.7 [facility] Comment on above: Performed By: #### Josep MOSES, MG1, B12, SERFOL, CBCDIF #### [place] [address] #### VITD #### [place] [address] Platelets (Bld) [#/Vol] 284 10*3/uL Normal 150-400 [facility] Comment on above: Performed By: #### I MOSES, MG1, B12, SERFOL, CBCDIF #### [place] [address] #### VITD #### [place] [address] RBC (Bld) [#/Vol] 4.94 10*6/uL Normal 4.20-6.00 [facility] Comment on above: Performed By: #### I MOSES, MG1, B12, SERFOL, CBCDIF #### [place] [address] #### VITD #### [place] [address] WBC (Bld) [#/Vol] 4.87 10*3/uL Normal 3.70-11.00 [facility] Comment on above: Performed By: #### I MOSES, MG1, B12, SERFOL, CBCDIF #### [place] [address] #### VITD #### [place] [address] Folate, Serumon 12-10-2019 Folate [Mass/Vol] ng/mL Normal >4.7 [facility] Comment on above: Result Comment: A re sult of > 20 ng/mL is not necessarily indicative of a pathologic or treatable condition: it reflects a limitation of the test methodology. Assay reference range: 4.8 to 24.2 ng/mL. Suitable for detection of folate deficiency. Reference: Folate III (Folate III) [package insert V 2.0 Lebanese]. [employer], [place], [place]: March 2015. Performed By: #### I MOSES, MG1, B12, SERFOL, CBCDIF ####[place] [phone]#### VITD ####[facility] [place], [place] [phone] Iron and TIBCon 12-10-2019 Iron [Mass/Vol] 124 ug/dL Normal 41-186 [facility] Comment on above: Performed By: #### I MOSES, MG1, B12, SERFOL, CBCDIF #### [place] [address] #### VITD #### [place] [address] TIBC 401 ug/dL High 232-386 [facility] Comment on above: Performed By: #### I MOSES, MG1, B12, SERFOL, CBCDIF #### [place] [id number] #### VITD #### [place] [address] Transferrin Saturatn 31 % Normal 15-57 [facility] Comment on above: Performed By: #### I MOSES, MG1, B12, SERFOL, CBCDIF #### [place] [address] #### VITD #### [place] [address] Magnesiumon 12-10-2019 Magnesium [Mass/Vol] 1.9 mg/dL Normal 1.7-2.3 [facility] Comment on above: Performed By: #### I MOSES, MG1, B12, SERFOL, CBCDIF #### [facility] [address] [address] #### VITD #### [facility] [address] [place], [place] [address] NURSING PROGon 12-10-2019 NURSING PROG HNO ID: [id number] Author: Joelle MedinaRn) BEN Mccracken Service: Nursing Author Type: Registered Nurse Type: Nursing Progress Note Filed: 12/10/2019 6:37 PM Note Text: Nursing Progress Note Patient Name: Kari Allan Patient Location: [facility]/[id number] Daily Note: 1530 Assumed care of patient. Pt observed in room at this time. 1535 [address] in hallway, appearing disheveled with broad affect and euthymic mood. AANDO x2 (disoriented to time). Denies all psych symptoms at this time, and states I just want to go home. Average eye contact maintained throughout interaction. 1710 Pt vomited after dinner. He states he ate too much food. Declines offer antiemetic at this time and states I'm fine now. Will continue to monitor patient's behavior. This note was completed by: Joelle Mccracken RN [facility] NURSING PROG HNO ID: [id number] Author: Gaurav MedinaRn) Ashwin, RN Service: ? Author Type: Registered Nurse Type: Nursing Progress Note Filed: 12/10/2019 12:10 PM Note Text: Nursing Progress Note Patient Name: Kari Allan Patient Location: [facility]/[id number] Daily Note: Eval of IDTP: Pt is A AND O X 2, alert to person and place. Pt is up and visible on the unit using wheel chair. Pt is disheveled in appearance, dressed in hospital clothing. Pt repeatedly ask the same questions regarding when is he going to discharged, and when am I going to get his medication. Pt requires frequent reorientation. Pt denies suicidal or homicidal ideation at this time. Pt audio or visual hallucinations at this time. Pt took his scheduled medication without resistance. Pt has not been a behavioral problem or had any outburst. No signs of distress, will continue to monitor Q 15 minutes on safety rounds. This note was completed by: Gaurav Christopher RN [facility] NURSING PROG HNO ID: [id number] Author: Chantal MedinaRn) BEN Razo Service: Nursing Author Type: Registered Nurse Type: Nursing Progress Note Filed: 12/10/2019 6:13 AM Note Text: Nursing Progress Note Patient Name: Kari Allan Patient Location: [address] Daily Note: 2330 - Assumed pt care at this time. Pt is resting in bed. Resps even and unlabored. >>Pt rested approx 7 hours total. Safety maintained. This note was completed by: Chantal Razo RN [facility] PROGRESSon 12-10-2019 PROGRESS HNO ID: [id number] Author: Interface Note Service: ? Author Type: ? Type: Progress Notes Filed: 12/10/2019 3:06 AM Note Text: Epic Scheduled Downtime: 12/10/2019 1:00:17 AM to 12/10/2019 2:53:17 AM [facility] T3on 12-10-2019 T3 69 ng/dL Low 79-165 [facility] Comment on above: Performed By: #### T 3, T4 ####[facility] [place] [id number] [place], [place] [phone] T4on 12-10-2019 T4 [Mass/Vol] 4.3 ug/dL Low 5.5-10.2 [facility] Comment on above: Performed By: #### T 3, T4 ####[facility] [place], [place] [phone] Vitamin B12on 12-10-2019 Cobalamin (Vitamin B12) [Mass/Vol] 1625 pg/mL High 232-1245 [facility] Comment on above: Performed By: #### I MOSES, MG1, B12, SERFOL, CBCDIF #### [place] [id number] #### VITD #### [place] [address] [place] [phone] Vitamin D 25 Hydroxyon 12-09 Vitamin D 25 Hydroxy 44.3 ng/mL Normal 31.0-80.0 [facility] Comment on above: Result Comment: Clas sification of 25 [place] Vitamin D status: Insufficiency/Moderate Deficiency: < or = 30 ng/mL Sufficiency/Optimal Levels: 31 to 80 ng/mL Toxicity: > 100 ng/mL Test performed by chemiluminescent immunoassay. Performed By: #### I MOSES, MG1, B12, SERFOL, CBCDIF ####[address] [phone]#### VITD ####[place] [id number] [place], [place] [phone] CONSULT PROGon 12-09-2019 CONSULT PROG HNO ID: [id number] Author: Matilde Ross Service: Podiatry Author Type: Physician Type: Consult Progress Note Filed: 12/11/2019 12:53 PM Note Text: CONSULT: Podiatry SERVICE SERVICE DATE: 12/09/2019 SERVICE TIME: 918 REASON FOR CONSULT: Painful elongated toenails REQUESTING PHYSICIAN: Dr. Rodriguez PRIMARY CARE PHYSICIAN: Pallavi Rodriguez MD Subjective Mr. Allan is a 49 year old male who presents for alcohol abuse. Patient states that he is having withdrawal symptoms this morning but has no other complaints. Patient states that the toenails are painful and elongated and they get stuck to socks. FUNCTIONAL STATUS: Independent PAST MEDICAL HISTORY Diagnosis Date - Acute respiratory failure (HCC) - Alcohol abuse - Anemia - Anemia - Back pain - C. difficile colitis - COPD (chronic obstructive pulmonary disease) (HCC) - Drug overdose - DVT (deep venous thrombosis) (HCC) - Dysphasia - Encephalopathy - Opiate dependence, continuous (HCC) - Pancreatitis - Pulmonary nodule seen on imaging study - Renal cyst - Seizure (HCC) - Sepsis (HCC) - Tobacco abuse - Weakness PAST SURGICAL HISTORY Procedure Laterality Date - APPENDECTOMY HX - BACK SURGERY HX - CHOLECYSTECTOMY HX - COLONOSCOPY 2014 - EGD 02/16/2017 - GASTROSTOMY/JEJUNOSTOMY TUBE 02/2017 - PICC LINE INSERT/CONSULT 04/04/2017 FAMILY HISTORY Problem Relation Age of Onset - Diabetes Mother - Blood Disease Father - Alcohol/Drug Brother - other (Pancreatitis) Brother Social History Tobacco Use - Smoking status: Current Every Day Smoker Packs/day: 0.25 Years: 30.00 Pack years: 7.50 Types: Cigarettes - Smokeless tobacco: Never Used Substance Use Topics - Alcohol use: No Alcohol/week: 46.7 standard drinks Types: 28 Shots of liquor per week Comment: states drinks a 1/5 of vodka or more daily - Drug use: No Comment: chronic prescribed percoet use. sucralfate (CARAFATE) 1 gram tablet, Take 1 tablet by mouth before meals and at bedtime., Disp: 30 tablet, Rfl: 0, Unknown at Unknown time ferrous sulfate 325 mg/7.4 mL, Take 7.4 mL by mouth twice daily., Disp: , Rfl: 0, Unknown at Unknown time acetaminophen (TYLENOL) 325 mg tablet, Take 650 mg by mouth every 8 hours as needed for Pain. , Disp: , Rfl: , Unknown at Unknown time divalproex sprinkle (DEPAKOTE SPRINKLES) 125 mg capsule, Take 250 mg by mouth four times daily. , Disp: , Rfl: , Unknown at Unknown time escitalopram oxalate (LEXAPRO) 10 mg tablet, 1 tablet by PEG route once daily., Disp: , Rfl: , Unknown at Unknown time levETIRAcetam (KEPPRA) 500 mg/5 mL (5 mL) CUP, 7.5 mL by ORAL/FEEDING TUBE route twice daily., Disp: , Rfl: , Unknown at Unknown time QUEtiapine (SEROQUEL) 200 mg tablet, 1 tablet by PEG route daily at bedtime., Disp: , Rfl: , Unknown at Unknown time QUEtiapine (SEROQUEL) 100 mg tablet, 1 tablet by ORAL/FEEDING TUBE route twice daily., Disp: , Rfl: , Unknown at Unknown time thiamine (VITAMIN B1) 100 mg tablet, 1 tablet by PEG route once daily., Disp: , Rfl: , Unknown at Unknown time pantoprazole DR (PROTONIX) 40 mg tablet, Take 1 tablet by mouth twice daily before meals (0600/1600)., Disp: , Rfl: , Unknown at Unknown time polyethylene glycol 3350 (MIRALAX, GLYCOLAX) 17 gram packet, Take 1 Packet by mouth once daily., Disp: , Rfl: , Unknown at Unknown time pyridoxine, vitamin B6, (VITAMIN B6) 25 mg tablet, 1 tablet by PEG route once daily., Disp: , Rfl: , Unknown at Unknown time melatonin 3 mg tablet, 3 tablets by PEG route daily at bedtime., Disp: , Rfl: , Unknown at Unknown time fludrocortisone (FLORINEF) 0.1 mg tablet, Take 1 tablet by mouth once daily., Disp: , Rfl: , Unknown at Unknown time folic acid 1 mg tablet, 1 tablet by PEG route once daily., Disp: , Rfl: , Unknown at Unknown time cyanocobalamin (VITAMIN B-12) 100 mcg tab, 1 tablet by PEG route once daily., Disp: , Rfl: , Unknown at Unknown time Current Facility-Administered Medications Medication Dose Route Frequency - nicotine polacrilex 2 mg gum (NICORETTE) 2 mg ORAL q 2 H PRN - LORazepam 2 mg (ATIVAN) 2 mg ORAL q 4 H PRN Or - LORazepam 2 mg injection (ATIVAN) 2 mg INTRAMUSCULAR q 4 H PRN - hydrOXYzine HCl 50 mg tab(s) (ATARAX) 50 mg ORAL q 4 H PRN - acetaminophen 650 mg tab(s) (TYLENOL) 650 mg ORAL q 6 H PRN - aluminum-magnesium hydroxide-simethicone 200-200-20 mg/5 mL 30 mL (MAALOX,MYLANTA,MAG-AL PLUS) 30 mL ORAL q 4 H PRN - magnesium hydroxide 400 mg/5 mL 30 mL (MOM) 30 mL ORAL DAILY PRN - diphenhydrAMINE 50 mg injection (BENADRYL) 50 mg INTRAMUSCULAR q 30 MIN PRN - ziprasidone 20 mg injection (GEODON) 20 mg INTRAMUSCULAR q 4 H PRN - traZODone 50 mg tab(s) (DESYREL) 50 mg ORAL HS PRN - divalproex sprinkle 500 mg cap(s) (DEPAKOTE SPRINKLES) 500 mg ORAL TID - sucralfate 1 g tab(s) (CARAFATE) 1 g ORAL AC and HS - levETIRAcetam 750 mg CUP (KEPPRA) 750 mg ORAL BID - QUEtiapine 100 mg tab(s) (SEROquel) 100 mg ORAL BID (q 4 H) - QUEtiapine 200 mg tab(s) (SEROquel) 200 mg ORAL AT BEDTIME - folic acid 1 mg tab(s) 1 mg ORAL DAILY - ferrous sulfate 300 mg oral liquid 300 mg ORAL BID - polyethylene glycol 3350 17 g packet (MIRALAX, GLYCOLAX) 17 g ORAL DAILY - pantoprazole DR 40 mg tab(s) (PROTONIX) 40 mg ORAL BID AC (0600/1600) - thiamine 100 mg tab(s) (VITAMIN B1) 100 mg ORAL DAILY - cyanocobalamin 100 mcg tab(s) (VITAMIN B-12) 100 mcg ORAL DAILY - pyridoxine (vitamin B6) 25 mg tab(s) (VITAMIN B6) 25 mg ORAL DAILY - melatonin 3 mg tab(s) 3 mg ORAL AT BEDTIME - lidocaine 4 % 1 Patch (SALONPAS) 1 Patch TRANSDERMAL DAILY AT 9 PM And - lidocaine patch - REMOVE OTHER DAILY And - lidocaine - VERIFY PATCH OTHER q 8 H - escitalopram oxalate 20 mg tab(s) (LEXAPRO) 20 mg ORAL DAILY - nicotine 14 mg/24 hr 1 Patch (NICODERM) 1 Patch TRANSDERMAL DAILY And - nicotine -- REMOVE patch OTHER DAILY And - nicotine - verify patch OTHER q 8 H - baclofen 10 mg tab(s) (LIORESAL) 10 mg ORAL TID PRN - ibuprofen 400 mg tab(s) (MOTRIN) 400 mg ORAL TID PRN - benzocaine-menthol 1 Lozenge (CEPACOL) 1 Lozenge MUCOUS MEMBRANE (TOPICAL MOUTH AND THROAT) q 2 H PRN Allergies As of Date: 12/04/2019 Allergen Noted Reaction HALDOL [HALOPERIDOL LACTATE] 07/13/2017 Unknown PARAGORIC 06/08/2013 Swelling Fully Assessed 12/03/2019 COMPLETE REVIEW OF SYSTEMS: PAIN ASSESSMENT: Negative for pain, history of chronic pain, or current treatment for a chronic pain condition. GENERAL: No weight loss, malaise or fevers MUSCULOSKELETAL: Negative for joint pain or swelling, back pain or muscle pain SKIN: Negative for lesions, rash, and itching NEURO: No history of headaches, syncope, paralysis, seizures or tremors Objective PHYSICAL EXAM: Physical Exam Performed: Vascular: DP/PT pulses were palpable 2/4 to B/L feet. CFT is brisk. Skin temperature is warm to warm from proximal leg to distal foot B/L. Varicose veins Derm: Toenails are elongate, thickened, and discolored 1-5 on B/L feet. No open ulcerations are noted. Xerotic skin is noted to the distal aspect of the foot B/L Neurological: Epicritic sensation is intact Muscle: Muscle strength is a 5/5 for all lower extremity muscle groups that were tested. Decrease ankle joint range of motion with the knee extended and flexed. BP 107/79 Pulse 96 Temp (Src) 98.1 (Oral) Resp 18 Ht 5' 10 (1.78m) Wt 192 lb (87.1kg) SpO2 93% BMI 27.55 kg/(m2). %FIO2: 97 DATA: Diagnostic tests reviewed for today's visit: Most recent labs and imaging results. Impression/Recommendations Elevated Blood glucose Onychomycosis Pain in toes Veins with inflammation Initial Patient was examined and evaluated Hga1c 5.9% recommend tight glycemic control Toenails 1-5 B/L were debrided without incident Recommend patient follow up with a Baseball Inspector And Repairer once discharge for Podiatric care Thank you so much for the consultation SIGNATURE: Matilde Ross DPM PATIENT NAME: Kari Allan DATE: December 09, 2019 TIME: 9:19 AM PAGER: [facility] NURSING PROGon 12-09-2019 NURSING PROG HNO ID: [id number] Author: Bev MedinaRn) BEN Leo Service: Nursing Author Type: Registered Nurse Type: Nursing Progress Note Filed: 12/09/2019 10:28 PM Note Text: Nursing Progress Note Patient Name: Kari Allan Patient Location: / 1930: Assumed care of patient in wheelchair in hallway. Approaches RN asking when he can have his medication. 1999: Compliant with medication administration and assessment. Denies any SI/HI, AH/VH. Complains of 10/10 lower back pain. Given PRN Motrin for pain and lidocaine patched placed on back. Patient threw up 2 of his Depakote pills which were visually seen in the toilet. RN gave patient 2 more pills which he was able to keep down. Given PRN Nicorette gum which he tolerated well. No further needs identified at this time. 2299: Report given to georgina CONTRERAS. Safety maintained. This note was completed by: Bev Leo RN [facility] NURSING PROG O ID: [id number] Author: Gaurav MedinaRn) BEN Christopher Service: ? Author Type: Registered Nurse Type: Nursing Progress Note Filed: 12/09/2019 5:16 PM Note Text: Nursing Progress Note Patient Name: Kari Allan Patient Location: / Daily Note: Pt is A AND O X 2, alert to person and place. Pt is OOR, using wheel chair on the unit. Pt is pleasant on approach. Pt states I just want to get out of here. Pt is often forgetful and has to be reoriented. Pt denies suicidal or homicidal ideation at this time. Pt denies audio or visual hallucinations at this time. Pt took his scheduled afternoon medications without resistance. Pt has not been a behavioral problem or had any outburst. No signs of distress, will continue to monitor Q 15 minutes on safety rounds. This note was completed by: Gaurav Christopher RN [facility] NURSING PROG HNO ID: [id number] Author: Gaurav Christopher RN Service: ? Author Type: Registered Nurse Type: Nursing Progress Note Filed: 12/09/2019 11:25 AM Note Text: Nursing Progress Note Patient Name: Kari Allan Patient Location: [facility]/[id number] Daily Note: Eval of IDTP: Pt is A AND O X 2, alert to person and place. Pt is OOR, using a wheel chair. Pt is often forgetful and repetitive. Pt denies suicidal or homicidal at this time. Pt denies audio or visual hallucinations at this time. Pt took his scheduled medication without resistance. Pt has not been a behavioral problem or had any outburst. No signs of distress, will continue to monitor Q 15 minutes on safety rounds. This note was completed by: Gaurav Christopher RN [facility] PROGRESSon 12-09-2019 PROGRESS HNO ID: [id number] Author: Franklin Marquis Service: Psychiatry Author Type: Resident Type: Progress Notes Filed: 12/09/2019 8:45 AM Note Text: Attestation signed by Beti Gallardo at 12/09/2019 6:33 PM [facility] Psychiatry Staff: TEACHING PHYSICIAN NOTE OF PERSONAL INVOLVEMENT IN CARE I have reviewed the progress note obtained and documented by the resident and I personally participated in the schultz components. I have discussed the case and management of the patient's care with this individual. The following comments revise or confirm relevant components of the note: Pt seen in the interview. Pt somatically preoccupied. Pt pointed to the healed scar where his feeding tube was. Reports chronic back pain and discusses how he used to take Vicodin. Education on why this medication is not appropriate for him. He does get relief from Lidocaine patches. No safety concerns. Behavior in control Impression: - Encephalopathy secondary to anoxic brain injury. 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 Folate/mag/vit d /iron panel - no other med changes -Engage in milieu Beti Gallardo DO. See directory for pager number Date of Attending Encounter: 12/09/2019 PROGRESS NOTE BEHAVIORAL HEALTH SERVICE DATE: 12/09/2019 SERVICE TIME: 9:00 am The Interdisciplinary team met and reviewed treatment goals and discharge planning. Subjective Pt reports he is not good this morning. Perseverates every day on the same topics. Reports back pain, and is concerned about the well healed scar on his stomach (from previous PEG tube). Redirectable from these topics and is otherwise pleasant. Does not appear in any discomfort. Reports sleeping and eating well. Objective PHYSICAL EXAM: BP 107/79 Pulse 96 Temp 36.7 ?C (98.1 ?F) Resp 18 Ht 177.8 cm (5' 10) Wt 87.1 kg (192 lb) SpO2 93% BMI 27.55 kg/m? MENTAL STATUS EXAMINATION: Appearance: casually dressed and in wheelchair Behavior: Calm, cooperative with interview Orientation: Person Speech/Language: The patient demonstrates appropriate tone, prosody, fanta, phonetics, and syntax Mood/Affect: Not good/Flat Thought Form: Perseverative Thought Content: Coherent Suicidal Ideations: No suicidal ideation, intent or plan. Homicidal Ideations: No homicidal ideation, intent or plan. Insight: Limited Judgment: Limited Memory/Cognition: Impaired Psychomotor: Psychomotor activity was normal NEW PROBLEMS ON UNIT SINCE LAST ENCOUNTER: None Current Facility-Administered Medications Medication Dose Route Frequency - nicotine polacrilex 2 mg gum (NICORETTE) 2 mg ORAL q 2 H PRN - LORazepam 2 mg (ATIVAN) 2 mg ORAL q 4 H PRN Or - LORazepam 2 mg injection (ATIVAN) 2 mg INTRAMUSCULAR q 4 H PRN - hydrOXYzine HCl 50 mg tab(s) (ATARAX) 50 mg ORAL q 4 H PRN - acetaminophen 650 mg tab(s) (TYLENOL) 650 mg ORAL q 6 H PRN - aluminum-magnesium hydroxide-simethicone 200-200-20 mg/5 mL 30 mL (MAALOX,MYLANTA,MAG-AL PLUS) 30 mL ORAL q 4 H PRN - magnesium hydroxide 400 mg/5 mL 30 mL (MOM) 30 mL ORAL DAILY PRN - diphenhydrAMINE 50 mg injection (BENADRYL) 50 mg INTRAMUSCULAR q 30 MIN PRN - ziprasidone 20 mg injection (GEODON) 20 mg INTRAMUSCULAR q 4 H PRN - traZODone 50 mg tab(s) (DESYREL) 50 mg ORAL HS PRN - divalproex sprinkle 500 mg cap(s) (DEPAKOTE SPRINKLES) 500 mg ORAL TID - sucralfate 1 g tab(s) (CARAFATE) 1 g ORAL AC and HS - levETIRAcetam 750 mg CUP (KEPPRA) 750 mg ORAL BID - QUEtiapine 100 mg tab(s) (SEROquel) 100 mg ORAL BID (q 4 H) - QUEtiapine 200 mg tab(s) (SEROquel) 200 mg ORAL AT BEDTIME - folic acid 1 mg tab(s) 1 mg ORAL DAILY - ferrous sulfate 300 mg oral liquid 300 mg ORAL BID - polyethylene glycol 3350 17 g packet (MIRALAX, GLYCOLAX) 17 g ORAL DAILY - pantoprazole DR 40 mg tab(s) (PROTONIX) 40 mg ORAL BID AC (0600/1600) - thiamine 100 mg tab(s) (VITAMIN B1) 100 mg ORAL DAILY - cyanocobalamin 100 mcg tab(s) (VITAMIN B-12) 100 mcg ORAL DAILY - pyridoxine (vitamin B6) 25 mg tab(s) (VITAMIN B6) 25 mg ORAL DAILY - melatonin 3 mg tab(s) 3 mg ORAL AT BEDTIME - lidocaine 4 % 1 Patch (SALONPAS) 1 Patch TRANSDERMAL DAILY AT 9 PM And - lidocaine patch - REMOVE OTHER DAILY And - lidocaine - VERIFY PATCH OTHER q 8 H - escitalopram oxalate 20 mg tab(s) (LEXAPRO) 20 mg ORAL DAILY - nicotine 14 mg/24 hr 1 Patch (NICODERM) 1 Patch TRANSDERMAL DAILY And - nicotine -- REMOVE patch OTHER DAILY And - nicotine - verify patch OTHER q 8 H - baclofen 10 mg tab(s) (LIORESAL) 10 mg ORAL TID PRN - ibuprofen 400 mg tab(s) (MOTRIN) 400 mg ORAL TID PRN - benzocaine-menthol 1 Lozenge (CEPACOL) 1 Lozenge MUCOUS MEMBRANE (TOPICAL MOUTH AND THROAT) q 2 H PRN DATA: Diagnostic tests reviewed for today's visit: Most recent labs Assessment/Plan DIAGNOSIS: 1. PRIMARY:?Encephalopathy secondary to anoxic brain injury (manifesting as anoxic brain injury) 2. Alcohol dependence in remission 3. Impulse control disorder GAF: -40-31 Some impairment in reality testing or communication or major impairment in several areas. RISK ASSESSMENT: Suicide: low Homicide: low Deliberate Self-Harm: low Aggression: low Imminent Physical Self Impairment: low INFORMED CONSENT: Yes, completed with the Guardian. Discussed the risks, benefits and alternatives to the medication(s) recommended. Consent was given. INTERVENTION: Biological: - continue Depakote 500 mg TID - continue Lexapro 20 mg daily - continue Keppra 750mg BID - continue Seroquel 100 mg BID, and 200 mg at bedtime Psychological: Insight, Groups Social: Milieu DISCHARGE PLANNING: Discharge planned for early next week. S/W coordinating. SIGNATURE: Daniel Mckeon DO PATIENT NAME: Kari Allan DATE: December 09, 2019 TIME: 8:12 AM PAGER/CONTACT#: [facility] PROGRESS HNO ID: [id number] Author: Interface Note Service: ? Author Type: ? Type: Progress Notes Filed: 12/09/2019 3:10 AM Note Text: Epic Scheduled Downtime: 12/09/2019 1:00:00 AM to 12/09/2019 2:45:23 AM [facility] CASE MANAGEMon 12-08-2019 CASE MANAGEM HNO ID: [id number] Author: uRbi Mcleod ([place]) Service: Social Work Author Type: Payroll Master Type: Care Mgt Progress Note Filed: 12/08/2019 11:42 AM Note Text: BEHAVIORAL HEALTH SOCIAL WORK PROGRESS NOTE SERVICE DATE: 12/08/2019 SERVICE TIME: 11:31 AM MIRNA spoke to pt's sister/guardian Clari ([phone]) to obtain more choices. [facility] refused to take pt back despite being pt's residence. They had his belongings packed and strongly encouraged her to pick them up. She and the other family members all work and pt cannot be unsupervised. Clari is taking care of her elderly mother in law as well. She would like a facility that is close since by law she needs to see him1x a month. She was seeing him 2x week prior to [facility]. MIRNA reviewed a list with her and a referral with updated notes was sent to 6 facilities. She did mention that pt was calling her demanding his vicodin for his pain and that he would F someone up if he didn't get it. MIRNA informed MD who informed nurses. Per MD, pt is accepting of Tylenol if stated here is medicine for your pain. SIGNATURE: FIONA Reinoso PATIENT NAME: Kari Allan DATE: December 08, 2019 TIME: 11:30 AM [facility] NURSING PROGon 12-08-2019 NURSING PROG HNO ID: [id number] Author: Vanna MedinaRn) BEN Roberson Service: Nursing Author Type: Registered Nurse Type: Nursing Progress Note Filed: 12/09/2019 6:18 AM Note Text: Attestation signed by Sarah MedinaRn) BEN Savage at 12/09/2019 6:26 AM Nursing Progress Note Patient Name: Kari Allan Patient Location: /[id number] Daily Note: Assumed care of pt at 1930. Pt observed OOR on the unit. Pt uses wheelchair independently. Pt BTTO1h4, disoriented to time. Pt preoccupied and forgetful often, requiring reminding and redirection. Pt denies SI/HI/AVH. Pt does endorse anxiety and depression both 01/07. Pt denies wanting medication for anxiety at this time. Pt compliant with scheduled medications. Pt received PRN Tylenol, and Trazodone with HS medications. Pt friendly, and cooperative. 2104: Pt asked for PRN for back pain, received Baclofen. 2300: Pt remained in room, asleep. Breathing unlabored, no signs of distress noted. Will continue to monitor. 0005: Pt requested something to help sleep. FLOR paged for repeat PRN Trazodone 50 mg. PRN Trazodone given. 0415: Pt c/o back pain 03/09. Pt given PRN Tylenol. 0600: Pt in room asleep currently. Pt awake intermittently throughout night. Sleep hours approximately 4. This note was completed by: Vanna Roberson RN [facility] NURSING PROG HNO ID: [id number] Author: Cece MedinaRn) BEN Parrish Service: ? Author Type: Registered Nurse Type: Nursing Progress Note Filed: 12/08/2019 8:56 AM Note Text: Nursing Progress Note Patient Name: Kari Allan Patient Location: / Daily Note and Eval of IDTP:Pt is AANDOx2 with disorientation to time. Visible on the unit at intervals throughout the day ambulating about the unit in wheelchair. Often forgetful and repetitive. Reoccupied with receiving pain medication and seeing the doctor. Pt reminded that he saw a pain management doctor yesterday. Denies SI/HI/AVH. Compliant with medications. Will continue to monitor. This note was completed by: Cece Parrsih RN [facility] NURSING PROG HNO ID: [id number] Author: Vanna MedinaRn) BEN Roberson Service: Nursing Author Type: Registered Nurse Type: Nursing Progress Note Filed: 12/08/2019 6:33 AM Note Text: Attestation signed by Arti Sutton) BEN Merrill at 12/08/2019 6:36 AM 11-7 Nursing Progress Note Patient Name: Kari Allan Patient Location: /[id number] Daily Note: Assumed care of pt at 2330. Pt observed in room, asleep. Breathing unlabored, no signs of distress noted. Will continue to monitor. 0600: Pt remained in room asleep throughout shift. Pt awake and compliant with morning medication. Pt cooperative, and preoccupied about pain medications. Pt remained awake and out to day room after assessment. Pt uses wheelchair, self transfers and self propels. Sleep hours approximately 6 hours. This note was completed by: Vanna Roberson RN [facility] NURSING PROG HNO ID: [id number] Author: Sarah Sutton) BEN Savage Service: Nursing Author Type: Registered Nurse Type: Nursing Progress Note Filed: 12/07/2019 10:37 PM Note Text: Nursing Progress Note Patient Name: Kari Allan Patient Location: [facility]-[id number] Daily Note: Patient spent evening out on unit utilizing his wheelchair. He is preoccupied but pleasant upon approach. He can be forgetful and speech is slowed at times. He was compliant with HS meds. He received PRN Trazodone and Cepacol. He denied anxiety, depression, SI, HI, and AVH. He remains focused on getting Percocet but was agreeable to try a Lidocaine patch, Baclofen, and Ibuprofen. No further needs noted at this time. Safety maintained. Will continue to monitor. This note was completed by: Sarah Savage RN [facility] NUTRITIONon 12-08-2019 NUTRITION HNO ID: [id number] Author: Francoise Smith Service: Nutrition Therapy Author Type: Registered Dietitian Type: Nutrition Filed: 12/08/2019 2:51 PM Note Text: NUTRITION THERAPY SCREEN NOTE SERVICE DATE: 12/08/2019 SERVICE TIME: 1040 Care Plan: Change diet to consistency appropriate - h/o Dysphagia Level 2 Snacks: Continue Supplements: Ensure Enlive(350kcal, 20g protein each) Refer to: Speech/Language Vitamins and Minerals: Vitamin B6;B12;Thiamine Discharge Recommendations: Diet;Oral Supplements Diet: low cholesterol, low saturated fat Oral Supplements: as needed to meet >75% estimated needs Intake History: Nutrition Intake Prior to Admission: Greater than 75% estimated energy needs greater than or equal to 1 month Current Intake: Less than 75% estimated energy needs over: 3 days Current Diet: DIET REGULAR Anthropometrics: Height: 177.8 cm (5' 10) Weight: 87.1 kg (192 lb) Usual Weight: 68 kg (150 lb) Weight change percentage over time: -4.5% over 9 months, not clinically significant Patient seen per RN and BHT request. Intake has been fair and patient consumes mostly liquids. Per staff he has trouble making new memories. Drinks supplements at home. H/o PEG but removed 02/2019. SIGNATURE: Francoise Smith RD, LD PATIENT NAME: Kari Allan DATE: December 08, 2019 TIME: 2:50 PM PAGER: [phone] Group pager [phone] for weekends 7a-4p [facility] PROGRESSon 12-08-2019 PROGRESS HNO ID: [id number] Author: Daniel Mckeon Service: Psychiatry Author Type: Resident Type: Progress Notes Filed: 12/08/2019 11:46 AM Note Text: PROGRESS NOTE BEHAVIORAL HEALTH SERVICE DATE: 12/08/2019 SERVICE TIME: 9:30AM The Interdisciplinary team met and reviewed treatment goals and discharge planning. Subjective Pt continues to perseverate on back pain. He says he needs his pain pills. He is redirectable from this subject though. He states he is otherwise good with no other complaints. He reports his mood is good and he slept OK. Reports no problem with eating or toileting. Per nursing and therapists' report he has been in good control and pleasant throughout hospitalization. He continues to state he could go live with Sister (and guardian) Clari. Objective PHYSICAL EXAM: BP 131/88 Pulse 92 Temp 36.7 ?C (98.1 ?F) Resp 18 Ht 177.8 cm (5' 10) Wt 87.1 kg (192 lb) SpO2 100% BMI 27.55 kg/m? MENTAL STATUS EXAMINATION: Appearance: casually dressed and in wheelchair Behavior: Calm, cooperative with interview Orientation: Person and Place Speech/Language: The patient demonstrates appropriate tone, prosody, fanta, phonetics, and syntax Mood/Affect: ok Thought Form: Coherent Thought Content: Coherent Suicidal Ideations: No suicidal ideation, intent or plan. Homicidal Ideations: No homicidal ideation, intent or plan. Insight: Limited Judgment: Limited Memory/Cognition: Impaired Psychomotor: Psychomotor activity was normal NEW PROBLEMS ON UNIT SINCE LAST ENCOUNTER: None Current Facility-Administered Medications Medication Dose Route Frequency - nicotine polacrilex 2 mg gum (NICORETTE) 2 mg ORAL q 2 H PRN - LORazepam 2 mg (ATIVAN) 2 mg ORAL q 4 H PRN Or - LORazepam 2 mg injection (ATIVAN) 2 mg INTRAMUSCULAR q 4 H PRN - hydrOXYzine HCl 50 mg tab(s) (ATARAX) 50 mg ORAL q 4 H PRN - acetaminophen 650 mg tab(s) (TYLENOL) 650 mg ORAL q 6 H PRN - aluminum-magnesium hydroxide-simethicone 200-200-20 mg/5 mL 30 mL (MAALOX,MYLANTA,MAG-AL PLUS) 30 mL ORAL q 4 H PRN - magnesium hydroxide 400 mg/5 mL 30 mL (MOM) 30 mL ORAL DAILY PRN - diphenhydrAMINE 50 mg injection (BENADRYL) 50 mg INTRAMUSCULAR q 30 MIN PRN - ziprasidone 20 mg injection (GEODON) 20 mg INTRAMUSCULAR q 4 H PRN - traZODone 50 mg tab(s) (DESYREL) 50 mg ORAL HS PRN - divalproex sprinkle 500 mg cap(s) (DEPAKOTE SPRINKLES) 500 mg ORAL TID - sucralfate 1 g tab(s) (CARAFATE) 1 g ORAL AC and HS - levETIRAcetam 750 mg CUP (KEPPRA) 750 mg ORAL BID - QUEtiapine 100 mg tab(s) (SEROquel) 100 mg ORAL BID (q 4 H) - QUEtiapine 200 mg tab(s) (SEROquel) 200 mg ORAL AT BEDTIME - folic acid 1 mg tab(s) 1 mg ORAL DAILY - ferrous sulfate 300 mg oral liquid 300 mg ORAL BID - polyethylene glycol 3350 17 g packet (MIRALAX, GLYCOLAX) 17 g ORAL DAILY - pantoprazole DR 40 mg tab(s) (PROTONIX) 40 mg ORAL BID AC (0600/1600) - thiamine 100 mg tab(s) (VITAMIN B1) 100 mg ORAL DAILY - cyanocobalamin 100 mcg tab(s) (VITAMIN B-12) 100 mcg ORAL DAILY - pyridoxine (vitamin B6) 25 mg tab(s) (VITAMIN B6) 25 mg ORAL DAILY - melatonin 3 mg tab(s) 3 mg ORAL AT BEDTIME - lidocaine 4 % 1 Patch (SALONPAS) 1 Patch TRANSDERMAL DAILY AT 9 PM And - lidocaine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 [facility] Comment on above: Performed By: #### C BCDIF ####[address] [place] [phone] Hemoglobin mass conc (Bld) 12.7 g/dL Low 13.0-17.0 [facility] Comment on above: Performed By: #### C BCDIF ####[address] [place] [phone] Lymphocytes #/vol (Bld) 2.61 10*3/uL Normal 1.00-4.00 [facility] Comment on above: Performed By: #### C BCDIF ####[address] [place]., [place] [phone] Lymphocytes/100 WBC (Bld) 36.8 % Normal [facility] Comment on above: Performed By: #### C BCDIF ####[address] [place] [phone] MCH Entitic mass (RBC) 31.1 pG Normal 26.0-34.0 [facility] Comment on above: Performed By: #### C BCDIF ####[address] [place] [phone] MCHC mass conc (RBC) 32.8 g/dL Normal 30.5-36.0 [facility] Comment on above: Performed By: #### C BCDIF ####[address] [place] [phone] MCV Entitic volume (RBC) 94.6 fL Normal 80.0-100.0 [facility] Comment on above: Performed By: #### C BCDIF ####[address] [place] [phone] Monocytes/100 WBC (Bld) 10.4 % [facility] Comment on above: Performed By: #### C BCDIF ####[address] [place] [phone] Neutrophils/100 WBC (Bld) 45.2 % Normal [facility] Comment on above: Performed By: #### C BCDIF ####[address] [place] [phone] NRBCs 0.0 /100 WBC Normal 0 [facility] Comment on above: Performed By: #### C BCDIF ####[address] [place] [phone] Platelet mean volume Entitic volume (Bld) 9.4 fL Normal 9.0-12.7 [facility] Comment on above: Performed By: #### C BCDIF ####[facility] [facility] [place]., [place] [phone] Platelets #/vol (Bld) 300 10*3/uL Normal 150-400 [facility] Comment on above: Performed By: #### C BCDIF ####[facility] [facility] [place]., [place] [phone] RBC #/vol (Bld) 4.09 10*6/uL Low 4.20-6.00 [facility] Comment on above: Performed By: #### C BCDIF ####[place] [id number] [facility] [place]., [place] [phone] WBC #/vol (Bld) 7.09 10*3/uL Normal 3.70-11.00 [facility] Comment on above: Performed By: #### C BCDIF ####[address] [place] [phone] [facility] 11-16-2018 [facility] HNO ID: [id number] Author: Onel Ortega Service: Critical Care Author Type: Nurse Practitioner Type: Chg in Clinical Condition Filed: 11/15/2018 11:04 PM Note Text: Crew Person Coverage Note Patient Name: Kari Allan This is a 48year old male who underwent egd today with esophageal stent removal. Per report: An esophageal stent was found in the lower third of the esophagus. ? ? ?Stent removal was accomplished with a Raptor grasping device with ? ? ?fluoroscopy guidance. ? ? ?There was evidence of an intact gastrostomy with a patent G-tube ? ? ?present in the gastric body. ? ? ?The exam of the stomach was otherwise normal. ? ? ?The examined duodenum was normal. Called regarding nausea with dark tarry emesis PHYSICAL EXAMINATION: General appearance: Well appearing, alert, in no acute distress, well-hydrated, well nourished. Abdomen: Normal abdominal exam, Abdomen soft, non-tender. Bowel sounds normal. No masses, organomegaly Extremities: No deformities, edema, skin discoloration, clubbing or cyanosis. Good capillary refill. Musculoskeletal: No joint swelling, deformity, or tenderness Peripheral pulses: Normal Neuro: Gait normal. Stable Vitals Plan - check hgb - cont PPI - zofran SL ordered - GI following RN to notify primary team of new admission for further recommendations. BP 97/67 Pulse 93 Temp 36.4 ?C (97.5 ?F) (Oral) Resp 15 Ht 177.8 cm (5' 10) Wt 76.7 kg (169 lb) SpO2 94% BMI 24.25 kg/m? Onel Ortega APRN.TUBULAR STOCK GLASS BULB MACHINE FORMER November 15, 2018 10:07 PM [facility] NURSING PROGon 11-16-2018 [facility] mass conc HNO ID: [id number] Author: Ana Luisa (Rn) BEN Peace Service: Nursing Author Type: Registered Nurse Type: Nursing Progress Note Filed: 11/17/2018 6:58 AM Note Text: Nursing Progress Note Patient Name: Kari Allan Patient Location: [id number]/[place] [id number] Daily Note: 1900 - Assumed care of patient. Received report on patient from previous staff. Patient visible in the day area at the start of shift. Patient is disheveled, wearing hospital gown and pants. Patient denies suicidal and homicidal ideations and auditory and visual hallucinations. Patient's affect is bright and his mood is euthymic. Patient is pleasant upon approach. Patient reports no complaints or discomforts at this time. Patient slept most of the evening shift. 2156 - Patient was compliant with his HS medications. He requested his Bacitracin ointment for his PEG insertion, which was applied for him. Patient's behavior has been in control. No PRNs were given this shift. Safety measures and patient checks per unit protocol, will continue to monitor. 2300 - Observed patient sleeping in his room. Safety measures and patient checks per unit protocol, will continue to monitor 30 - Patient was compliant with his AM Protonix 40 mg (PEG). Patient slept for approximately 7 hours. Patient was not in distress, voiced no complaints, and his behavior has been in control throughout the shift. No PRNs were given this shift. This note was completed by: Ana Luisa Peace RN [facility] Protein mass conc HNO ID: [id number] Author: Judah MedinaRn) BEN Beckett Service: ? Author Type: Registered Nurse Type: Nursing Progress Note Filed: 11/16/2018 7:12 PM Note Text: Nursing Progress Note Patient Name: Kari Allan Patient [facility] [id number][facility] Daily Note: 1604 Report received from previous shift, pt seclusive to his room and himself, resting quietly in bed, easily arousable, disheveled, preoccupied, labile when awake, PEG intact, no somatic complaints noted, fall and seizure precautions maintained, 1:1 constant supervision with staff, q 15 minute checks for safety and protection, will continue to monitor for any change in status. 1850 Pt awoke, ate dinner, pleasant with staff, preoccupied, disheveled, no somatic complaints noted, fall and seizure precautions maintained, 1:1 constant supervision with staff, q 15 minute checks for safety and protection, will continue to monitor for any change in status. This note was completed by: Judah Beckett RN [facility] Protein mass conc HNO ID: [id number] Author: Horacio Blake LPN Service: ? Author Type: LICENSED NURSE Type: Nursing Progress Note Filed: 11/16/2018 1:37 PM Note Text: Nursing Progress Note Patient Name: Kari Allan Patient Location: [id number][place] [place] Daily Note:Pt has been up for lunch only. Observed sitting in the day area and laying in his bed with his eyes closed. He is alert to self. General appearance is disheveled in hospital attire. Mood/affect is euthymic. No interaction with peers and minimal interaction with staff. Appetite is adequate. He ate lunch. No groups attended. No acute distress or behavioral issues observed at this time. He voiced no delusions. Denies any audio/visual hallucinations and denies any suicidal/homicidal ideation at this time. Will continue to monitor pt q 15 minutes on rounds for safety. This note was completed by: Horacio Blake LPN [facility] mass [facility] HNO ID: [id number] Author: Ralph (Rn) BEN Yanez Service: Nursing Author Type: Registered Nurse Type: Nursing Progress Note Filed: 11/16/2018 6:26 AM Note Text: Nursing Progress Note Patient Name: Kari Allan Patient Location: [id number]/[place] [id number]* Daily Note: 2200 Received report from previous shift. Pt seen out in the day area. Pt did not make any requests at that time. Pt denies all. Pt stated that he was feeling nauseous. Pt took scheduled meds and given prn zofran with scheduled meds. Pt puked up his meds and medical house superintendent was called. Orally disintegrating zofran ordered and blood draws ordered for the morning due to the dark brown emesis. Pt given the oral disintegrating zofran at 2222. Pt resting comfortably in the day area. 1:1 with staff maintained at all times. Pt safety checks done per unit protocol. Will continue to monitor. 0600 Pt slept in his room for the majority of the night. Pt had no complaints of nausea or episodes of vomiting throughout the night. Pt slept for 6 hours. This note was completed by: Ralph Yanez RN [facility] PROGRESSon 11-16-2018 Protein mass conc HNO ID: [id number] Author: Ajith Palomares Service: Psychiatry Author Type: Physician Type: Progress Notes Filed: 11/16/2018 9:45 AM Note Text: PROGRESS NOTE BEHAVIORAL HEALTH SERVICE DATE: 11/16/2018 SERVICE TIME: 10:47 AM The Interdisciplinary team met and reviewed treatment goals and discharge planning. yesterday nursing- unit for a procedure and did not return until approximately 1130 this shift. Upon arrival to the unit, pt was calm, lethargic, irritable, and in behavioral control. This is a 48year old male who underwent egd today with esophageal stent removal. Per report: An esophageal stent was found in the lower third of the esophagus. ? ? ?Stent removal was accomplished with a Raptor grasping device with ? ? ?fluoroscopy guidance. ? ? ?There was evidence of an intact gastrostomy with a patent G-tube ? ? ?present in the gastric body. ? ? ?The exam of the stomach was otherwise normal. ? ? ?The examined duodenum was normal. ? Plan - check hgb - cont PPI - zofran SL ordered - GI following RN to notify primary team of new admission for further recommendations. ? SUBJECTIVE Seen on rounds this am, resting in bed. Calm at the moment. Feels ok. Was sleeping in room initially with 1-1 staff. The patient has memory impairment and does not recall meeting with me in the past. . At this time, the patient denies suicidal or homicidal thoughts, auditory and visual hallucinations. OBJECTIVE PHYSICAL EXAM: BP 97/67 Pulse 93 Temp 36.4 ?C (97.5 ?F) (Oral) Resp 15 Ht 177.8 cm (5' 10) Wt 76.7 kg (169 lb) SpO2 94% BMI 24.25 kg/m? MENTAL STATUS EXAMINATION: APPEARANCE: In hospital gown BEHAVIOR: appropriaate at the moment. On 1-1. Redirectable. ORIENTATION: Person SPEECH/LANGUAGE: Inappropriately Loud at times. Calm at the moment. MOOD/AFFECT: Anxious and Distressed at times. Overall, no behavioral issues at the moment. THOUGHT FORM: Coherent THOUGHT CONTENT: Coherent SUICIDAL IDEATIONS: No suicidal ideation, intent or plan. HOMICIDAL IDEATIONS: No homicidal ideation, intent or plan. INSIGHT: Poor JUDGMENT: Grossly impaired MEMORY/COGNITION: Moderately Impaired PSYCHOMOTOR: Agitated New problems on the unit since last encounter: See previous EPIC notes Current hospital medications: DATA: Current Facility-Administered Medications Medication Dose Route Frequency - nicotine polacrilex 2 mg gum (NICORETTE) 2 mg ORAL q 2 H PRN - ziprasidone 20 mg injection (GEODON) 20 mg INTRAMUSCULAR q 4 H PRN - acetaminophen 650 mg CUP (TYLENOL) 650 mg ORAL/FEEDING TUBE q 4 H PRN - bacitracin 500 unit/gram 1 application topical ointment 1 application TOPICAL PRN - melatonin 9 mg tab(s) 9 mg PEG AT BEDTIME - QUEtiapine 200 mg tab(s) (SEROquel) 200 mg PEG AT BEDTIME - QUEtiapine 100 mg tab(s) (SEROquel) 100 mg ORAL/FEEDING TUBE BID - valproic acid 250 mg CUP (DEPAKENE) 250 mg ORAL QID - aluminum-magnesium hydroxide-simethicone 200-200-20 mg/5 mL 30 mL (MAALOX,MYLANTA,MAG-AL PLUS) 30 mL ORAL/FEEDING TUBE q 6 H PRN - pantoprazole DR 40 mg tab(s) (PROTONIX) 40 mg ORAL BID AC (0600/1600) - cyanocobalamin 100 mcg tab(s) (VITAMIN B-12) 100 mcg PEG DAILY - dextromethorphan 20 mg - quiNIDine 10 mg capsule (NUEDEXTA) 1 capsule ORAL q 12 H - escitalopram oxalate 10 mg tab(s) (LEXAPRO) 10 mg PEG DAILY - fludrocortisone 0.1 mg tab(s) (FLORINEF) 0.1 mg ORAL DAILY - folic acid 1 mg tab(s) 1 mg PEG DAILY - levETIRAcetam 750 mg CUP (KEPPRA) 750 mg ORAL/FEEDING TUBE BID - polyethylene glycol 3350 17 g packet (MIRALAX, GLYCOLAX) 17 g ORAL DAILY - pyridoxine (vitamin B6) 25 mg tab(s) (VITAMIN B6) 25 mg PEG DAILY - thiamine 100 mg tab(s) (VITAMIN B1) 100 mg PEG DAILY - ondansetron orally disintegrating 4 mg tab(s) (ZOFRAN ODT) 4 mg ORAL q 6 H PRN Diagnostic tests reviewed for today's visit: Most recent labs and imaging results. ASSESSMENT/PLAN DIAGNOSIS: 1. PRIMARY: Impulse-Control Disorder Intermittent Explosive Disorder 2. tbi 3. pba GAF: 35 -40-31 Some impairment in reality testing or communication or major impairment in several areas. Risk Assessment Suicide: moderate Homicide: moderate Deliberate Self-Harm: moderate Aggression: moderate Imminent Physical Self Impairment: moderate INFORMED CONSENT: Yes, completed with the Patient. Discussed the risks, benefits and alternatives to the medication(s) recommended. Consent was given. Interventions Biological: .Continue current meds. Psychological: groups Social: therapeutic milieu DISCHARGE PLANNING: Discharge by perhaps next week SIGNATURE Ajith Palomares DO PATIENT NAME: Kari Allan DATE: November 16, 2018 TIME: 10:47 AM [facility] NURSING PROGon 11-15-2018 [facility] mass [facility] HNO ID: [id number] Author: Jodi (Rn) BEN Umaña Service: Behavioral Health Author Type: Registered Nurse Type: Nursing Progress Note Filed: 11/15/2018 3:32 PM Note Text: Nursing Progress Note Patient Name: Kari Allan Patient Location: [place] [address]* Daily Note: Received report from previous shift and assumed care of patient at 0730. Pt was off unit for a procedure and did not return until approximately 1130 this shift. Upon arrival to the unit, pt was calm, lethargic, irritable, and in behavioral control. Pt was compliant with medication administration this shift. Pt has been visible in the day area, limited interactions observed between patient and peers, and patient did not attend groups this shift. Pt denies SI, HI, AH, VH, and pain at this time. Fall precautions, seizure precautions, 1:1, and Q 15 minute safety checks maintained this shift, will continue to monitor. This note was completed by: Jodi Umaña RN [facility] PROGRESSon 11-15-2018 Protein mass conc HNO ID: [id number] Author: Ajith Palomares Service: Psychiatry Author Type: Physician Type: Progress Notes Filed: 11/15/2018 11:12 AM Note Text: 11/15/2018 Off unit this am for procedure during rounds. Ajith Palomares, DO [facility] CASE MANAGEMon 11-14-2018 CASE MANAGEM HNO ID: [id number] Author: Maggie Villanueva (Sw) Service: ? Author Type: Payroll Master Type: Care Mgt Progress Note Filed: 11/14/2018 2:55 PM Note Text: BEHAVIORAL HEALTH SOCIAL WORK PROGRESS NOTE SERVICE DATE: 11/14/2018 SERVICE TIME: 14:55 Patient has been seen on unit with 1:1 staff. Patient has been pleasant and compliant with scheduled meds. Patient is scheduled to transport to [facility] on 11/15 for a procedure at 6:45AM. Patient will transport to [facility] via ambulance at 5:30AM. [facility] . Patient to return after procedure. SIGNATURE: DANIKA Steele PATIENT NAME: Kari Allan DATE: November 14, 2018 TIME: 2:53 PM [facility] NURSING PROGon 11-14-2018 Protein mass conc HNO ID: [id number] Author: Fabricio Vallejo LPN Service: ? Author Type: LICENSED NURSE Type: Nursing Progress Note Filed: 11/15/2018 5:50 AM Note Text: Nursing Progress Note Patient Name: Kari Allan Patient Location: [id number]/[place] [id number] Daily Note:2000-Patient visible in day area with sitter. He is alert to self upon approach. Forgetful to place and time, but reorients. He is calm and cooperative. Voices no distress. 2100-Small bout of gaging observed post oral intake of clear liquids. No emeisis. 2130-Patient is compliant with HS medications. 0015-Patient asleep without signs of distress. 0500-Patient awake and is motivated with ADL's. Vital signs as charted. Remains intermittently labile, but redirects. Behavior is mostly in good control. Patient slept 4.5 hours. 0545-Patient taken off floor via [facility]ulate to main [facility]. This note was completed by: Fabricio Vallejo LPN [facility] Protein mass conc HNO ID: [id number] Author: Dalton Sutton) BEN Monreal Service: ? Author Type: Registered Nurse Type: Nursing Progress Note Filed: 11/14/2018 3:22 PM Note Text: Nursing Progress Note Patient Name: Kari Allan Patient Location: [place] [address] [address]* Daily Note: 0730 am Report received from previous shift. Patient is on 1:1 observation with a staff member. He is disheveled in physical appearance. Helped patient changing his gown and pants to clean ones. Patient is alert and oriented to self, reoriented patient to time and place. He was compliant with his scheduled AM medications. Patient requested and received prn Tylenol for pain. He denies current SI/HI and AH/VH. His mood is pleasant and behavior is in control. [address] Perez. Patient to be NPO after midnight tonight as per Dr. Perez's order for scheduled procedure tomorrow. Made oncoming nurse aware. This note was completed by: Dalton Monreal RN [facility] Protein mass conc HNO ID: [id number] Author: Roxana MedinaRn) BEN Walker Service: Nursing Author Type: Registered Nurse Type: Nursing Progress Note Filed: 11/14/2018 6:13 AM Note Text: Nursing Progress Note Patient Name: Kari Allan Patient Location: [id number]/[place] [id number] Daily Note: Nurse assumed care of patient at 19:30 received report from previous shift. Mr. Allan is pleasant in control AANDOx3. Med compliant. Pt denies SI/HI/AVH. Kari is still on a 1:1 with staff. Patient is currently resting no complaints voiced nurse will continue to monitor for safety per unit protocol. 06 Pt remained in room sleeping 8hrs no complaints voiced. Nurse will continue to monitor for safety per unit protocol. This note was completed by: Roxana Walker RN [facility] PROGRESSon 11-14-2018 Protein mass conc HNO ID: [id number] Author: Ajith Palomares Service: Psychiatry Author Type: Physician Type: Progress Notes Filed: 11/14/2018 10:26 AM Note Text: PROGRESS NOTE BEHAVIORAL HEALTH SERVICE DATE: 11/14/2018 SERVICE TIME: 10:47 AM The Interdisciplinary team met and reviewed treatment goals and discharge planning. SUBJECTIVE The patient was seen in the unit. Eating breakfast. Feels ok. Was sleeping in room initially with 1-1 staff. The patient who has been having issues with his PEG tube reports that he has been in pain. The nursing staff reports that the patient has been playing with his PEG tube which might be causing the pain. . . At this time, the patient denies suicidal or homicidal thoughts, auditory and visual hallucinations. OBJECTIVE PHYSICAL EXAM: BP 104/70 Pulse 101 Temp 37.3 ?C (99.1 ?F) (Oral) Resp 16 Ht 177.8 cm (5' 10) Wt 76.7 kg (169 lb) SpO2 96% BMI 24.25 kg/m? MENTAL STATUS EXAMINATION: APPEARANCE: In hospital gown BEHAVIOR: appropriaate at the moment. On 05-31. Redirectable. ORIENTATION: Person SPEECH/LANGUAGE: Inappropriately Loud at times. Calm at the moment. MOOD/AFFECT: Anxious and Distressed at times. Overall, no behavioral issues at the moment. THOUGHT FORM: Coherent THOUGHT CONTENT: Coherent SUICIDAL IDEATIONS: No suicidal ideation, intent or plan. HOMICIDAL IDEATIONS: No homicidal ideation, intent or plan. INSIGHT: Poor JUDGMENT: Grossly impaired MEMORY/COGNITION: Moderately Impaired PSYCHOMOTOR: Agitated New problems on the unit since last encounter: See previous EPIC notes Current hospital medications: DATA: Current Facility-Administered Medications Medication Dose Route Frequency - nicotine polacrilex 2 mg gum (NICORETTE) 2 mg ORAL q 2 H PRN - ziprasidone 20 mg injection (GEODON) 20 mg INTRAMUSCULAR q 4 H PRN - acetaminophen 650 mg CUP (TYLENOL) 650 mg ORAL/FEEDING TUBE q 4 H PRN - bacitracin 500 unit/gram 1 application topical ointment 1 application TOPICAL PRN - escitalopram oxalate 10 mg tab(s) (LEXAPRO) 10 mg PEG DAILY - levETIRAcetam 750 mg CUP (KEPPRA) 750 mg ORAL/FEEDING TUBE BID - melatonin 9 mg tab(s) 9 mg PEG AT BEDTIME - QUEtiapine 200 mg tab(s) (SEROquel) 200 mg PEG AT BEDTIME - thiamine 100 mg tab(s) (VITAMIN B1) 100 mg PEG DAILY - pantoprazole 40 mg granules for suspension (PROTONIX) 40 mg ORAL DAILY (6 AM) - ondansetron 4 mg tab(s) (ZOFRAN) 4 mg PEG q 6 H PRN - fludrocortisone 0.1 mg tab(s) (FLORINEF) 0.1 mg ORAL DAILY - folic acid 1 mg tab(s) 1 mg PEG DAILY - pyridoxine (vitamin B6) 25 mg tab(s) (VITAMIN B6) 25 mg PEG DAILY - cyanocobalamin 100 mcg tab(s) (VITAMIN B-12) 100 mcg PEG DAILY - dextromethorphan 20 mg - quiNIDine 10 mg capsule (NUEDEXTA) 1 capsule ORAL q 12 H - QUEtiapine 100 mg tab(s) (SEROquel) 100 mg ORAL/FEEDING TUBE BID - valproic acid 250 mg CUP (DEPAKENE) 250 mg ORAL QID - polyethylene glycol 3350 17 g packet (MIRALAX, GLYCOLAX) 17 g ORAL DAILY - aluminum-magnesium hydroxide-simethicone 200-200-20 mg/5 mL 30 mL (MAALOX,MYLANTA,MAG-AL PLUS) 30 mL ORAL/FEEDING TUBE q 6 H PRN Diagnostic tests reviewed for today's visit: Most recent labs and imaging results. ASSESSMENT/PLAN DIAGNOSIS: 1. PRIMARY: Impulse-Control Disorder Intermittent Explosive Disorder 2. tbi 3. pba GAF: 35 -40-31 Some impairment in reality testing or communication or major impairment in several areas. Risk Assessment Suicide: moderate Homicide: moderate Deliberate Self-Harm: moderate Aggression: moderate Imminent Physical Self Impairment: moderate INFORMED CONSENT: Yes, completed with the Patient. Discussed the risks, benefits and alternatives to the medication(s) recommended. Consent was given. Interventions Biological: .Continue current meds. Psychological: groups Social: therapeutic milieu DISCHARGE PLANNING: Discharge by perhaps next week SIGNATURE Ajith Palomares DO PATIENT NAME: Kari Allan DATE: November 14, 2018 TIME: 10:47 AM [facility] ALLIED HEALTHon 11-13-2018 ALLIED HEALTH HNO ID: [id number] Author: Sr. Garcia (Hi-) LAURA Levine Service: Recreational Therapy Author Type: Therapist Type: Allied Health Filed: 11/13/2018 5:15 PM Note Text: PROGRESS NOTE BEHAVIORAL HEALTH Topic of Note: Three Day Note SERVICE DATE: 11/13/2018 SERVICE TIME: 5:13pm Patient has been refusing all structured RT groups in the past three days. He is very polite in his refusals and most often says, Thank you, but not now. Groups will continue to be encouraged in order to promote healthy coping and social skills. SIGNATURE: [facility] Rad[facility] PATIENT NAME: Kari Allan DATE: November 13, 2018 TIME: 5:13 PM PAGER/CONTACT #: [facility] NURSING PROGon 11-13-2018 Protein mass conc HNO ID: [id number] Author: Judah Ulloa (Rn) BEN Beckett Service: ? Author Type: Registered Nurse Type: Nursing Progress Note Filed: 11/13/2018 5:02 PM Note Text: Nursing Progress Note Patient Name: Kari Allan Patient Location: [id number]* Daily Note: 1032 Report received from previous shift, pt visible on unit, interacts only when conversation initiated by someone else, oriented to self and place only, disorganized at times, pleasant with staff but does intermittently get irritable, disheveled, poor insight. Pt ate fair for breakfast, medication compliant via PEG, fixated on going home soon, denies any abdominal pain or discomfort, no abdominal distention noted, denies hallucinations, denies suicidal or homicidal ideation, contracts for safety, fall and seizure precautions maintained, 1:1 constant supervision by staff, q 15 minute checks for safety and protection, will continue to monitor for any change in status. 1316 Pt requested and ate a snack prior to lunch then ate well at lunch. Pt denies any abdominal discomfort, pleasant with staff, watching a movie in the day area, fall and seizure precautions maintained, 1:1 constant supervision by staff, q 15 minute checks for safety and protection, will continue to monitor for any change in status. 1352 Pt medication compliant via PEG, denies any abdominal discomfort, fall and seizure precautions maintained, 1:1 constant supervision by staff, q 15 minute checks for safety and protection, will continue to monitor for any change in status. 1650 Pt ate dinner fair, medication compliant via PEG, pleasant with staff, no somatic complaints noted, fall and seizure precautions maintained, 1:1 constant supervision by staff, q 15 minute checks for safety and protection, will continue to monitor for any change in status. This note was completed by: Judah Beckett RN [facility] Protein mass conc HNO ID: [id number] Author: Aiden (Rn) BEN Buchanan Service: ? Author Type: Registered Nurse Type: Nursing Progress Note Filed: 11/13/2018 7:08 AM Note Text: Nursing Progress Note Patient Name: Kari Allan Patient Location: [id number]/[place] [id number] Daily Note: Assumed care at 1930. Patient has been intermittently visible on the unit this shift watching television. He is disheveled in appearance and preoccupied with his thoughts. He has remained calm and cooperative with care. He has been medication compliant and PRN zofran administered at 2034 for nausea with good results. 1:1 care maintained. 0600: Patient sleeping in no distress. Behavior remained in control overnight. He slept 8 hours overnight. This note was completed by: Aiden Buchanan RN [facility] PROGRESSon 11-13-2018 Protein mass conc HNO ID: [id number] Author: Tony Jalloh Service: Psychiatry Author Type: Physician Type: Progress Notes Filed: 11/13/2018 10:49 AM Note Text: PROGRESS NOTE BEHAVIORAL HEALTH SERVICE DATE: 11/13/2018 SERVICE TIME: 10:47 AM The Interdisciplinary team met and reviewed treatment goals and discharge planning. SUBJECTIVE The patient was seen in the unit. The patient who has been having issues with his PEG tube reports that he has been in pain. The nursing staff reports that the patient has been playing with his PEG tube which might be causing the pain. . During the interview the patient appears angry but redirectable . At this time, the patient denies suicidal or homicidal thoughts, auditory and visual hallucinations. OBJECTIVE PHYSICAL EXAM: BP 100/75 Pulse 99 Temp 36.7 ?C (98.1 ?F) (Oral) Resp 18 Ht 177.8 cm (5' 10) Wt 76.7 kg (169 lb) SpO2 96% BMI 24.25 kg/m? MENTAL STATUS EXAMINATION: APPEARANCE: In hospital gown BEHAVIOR: Overactive ORIENTATION: Person SPEECH/LANGUAGE: Inappropriately Loud MOOD/AFFECT: Anxious and Distressed THOUGHT FORM: Coherent THOUGHT CONTENT: Coherent SUICIDAL IDEATIONS: No suicidal ideation, intent or plan. HOMICIDAL IDEATIONS: No homicidal ideation, intent or plan. INSIGHT: Poor JUDGMENT: Grossly impaired MEMORY/COGNITION: Moderately Impaired PSYCHOMOTOR: Agitated New problems on the unit since last encounter: See previous EPIC notes Current hospital medications: DATA: Current Facility-Administered Medications Medication Dose Route Frequency - nicotine polacrilex 2 mg gum (NICORETTE) 2 mg ORAL q 2 H PRN - ziprasidone 20 mg injection (GEODON) 20 mg INTRAMUSCULAR q 4 H PRN - acetaminophen 650 mg CUP (TYLENOL) 650 mg ORAL/FEEDING TUBE q 4 H PRN - bacitracin 500 unit/gram 1 application topical ointment 1 application TOPICAL PRN - escitalopram oxalate 10 mg tab(s) (LEXAPRO) 10 mg PEG DAILY - levETIRAcetam 750 mg CUP (KEPPRA) 750 mg ORAL/FEEDING TUBE BID - melatonin 9 mg tab(s) 9 mg PEG AT BEDTIME - QUEtiapine 200 mg tab(s) (SEROquel) 200 mg PEG AT BEDTIME - thiamine 100 mg tab(s) (VITAMIN B1) 100 mg PEG DAILY - pantoprazole 40 mg granules for suspension (PROTONIX) 40 mg ORAL DAILY (6 AM) - ondansetron 4 mg tab(s) (ZOFRAN) 4 mg PEG q 6 H PRN - fludrocortisone 0.1 mg tab(s) (FLORINEF) 0.1 mg ORAL DAILY - folic acid 1 mg tab(s) 1 mg PEG DAILY - pyridoxine (vitamin B6) 25 mg tab(s) (VITAMIN B6) 25 mg PEG DAILY - cyanocobalamin 100 mcg tab(s) (VITAMIN B-12) 100 mcg PEG DAILY - dextromethorphan 20 mg - quiNIDine 10 mg capsule (NUEDEXTA) 1 capsule ORAL q 12 H - QUEtiapine 100 mg tab(s) (SEROquel) 100 mg ORAL/FEEDING TUBE BID - valproic acid 250 mg CUP (DEPAKENE) 250 mg ORAL QID - polyethylene glycol 3350 17 g packet (MIRALAX, GLYCOLAX) 17 g ORAL DAILY - aluminum-magnesium hydroxide-simethicone 200-200-20 mg/5 mL 30 mL (MAALOX,MYLANTA,MAG-AL PLUS) 30 mL ORAL/FEEDING TUBE q 6 H PRN Diagnostic tests reviewed for today's visit: Most recent labs and imaging results. ASSESSMENT/PLAN DIAGNOSIS: 1. PRIMARY: Impulse-Control Disorder Intermittent Explosive Disorder GAF: 35 -40-31 Some impairment in reality testing or communication or major impairment in several areas. Risk Assessment Suicide: moderate Homicide: moderate Deliberate Self-Harm: moderate Aggression: moderate Imminent Physical Self Impairment: moderate INFORMED CONSENT: Yes, completed with the Patient. Discussed the risks, benefits and alternatives to the medication(s) recommended. Consent was given. Interventions Biological: .Continue current meds. Psychological: groups Social: therapeutic milieu DISCHARGE PLANNING: Discharge by perhaps next week SIGNATURE: Tony Jalloh MD PATIENT NAME: Kari Allan DATE: November 13, 2018 TIME: 10:47 AM [facility] NURSING PROGon 11-12-2018 Protein mass conc HNO ID: [id number] Author: Judah Ulloa (Rn) BEN Beckett Service: ? Author Type: Registered Nurse Type: Nursing Progress Note Filed: 11/12/2018 5:23 PM Note Text: Nursing Progress Note Patient Name: Kari Allan Patient Location: [id number]/[place] [id number] Daily Note: 1216 Report received from previous shift, pt visible on unit, interacts primarily with staff, pleasant, fixated on abdomin slightly distended and states he continues to have the same discomfort he's been having for days, having intermittent loose stools, confused at times, disheveled, preoccupied. Pt ate poorly for breakfast and lunch but did drink ensure, received medications via PEG, watching television in the day area, denies hallucinations, deniers suicidal or homicidal ideation, contracts for safety, fall and seizure precautions maintained, 1:1 constant supervision with staff, q 15 minute checks for safety and protection, will continue to monitor for any change in status. 1313 Pt complaining of abdominal discomfort, requested and received Zofran 4 mg and scheduled medications via PEG, abdomin much less distended and not firm, abdominal dressing changed, fall and seizure precautions maintained, 1:1 constant supervision with staff, q 15 minute checks for safety and protection, will continue to monitor for any change in status. 1447 Pt resting quietly in bed, easily arousable, no somatic complaints noted, fall and seizure precautions maintained, 1:1 constant supervision with staff, q 15 minute checks for safety and protection, will continue to monitor for any change in status. 1714 Pt awoke, ate poorly for dinner but did drink ensure, pleasant with staff, no longer complaining of abdominal discomfort, no longer having loose stools, preoccupied, pacing at times, fall and seizure precautions maintained, 1:1 constant supervision with staff, q 15 minute checks for safety and protection, will continue to monitor for any change in status. This note was completed by: Judah Beckett RN [facility] Protein mass conc HNO ID: [id number] Author: Shannon (Rn) BEN Alcantara Service: Nursing Author Type: Registered Nurse Type: Nursing Progress Note Filed: 11/12/2018 3:58 AM Note Text: Nursing Progress Note Patient Name: Kari Allan Patient Location: [id number]/[place] [id number]* Daily Note: : Kari was observed in the day area all evening. He was mediation compliant with his night time medications and PRN Zofran. PEG is patent. He requested/received PRN Mylanta twice this shift. He complains of constant stomach pain. Zofran and Mylanta had semi effective results. He denies SI/HI and AVH. He is social and pleasant. Arm band intact, safety checks maintained per unit protocol. This note was completed by: Shannon Alcantara RN [facility] PROGRESSon 11-12-2018 Protein mass conc HNO ID: [id number] Author: Tony Jalloh Service: Psychiatry Author Type: Physician Type: Progress Notes Filed: 11/12/2018 10:53 AM Note Text: PROGRESS NOTE BEHAVIORAL HEALTH SERVICE DATE: 11/12/2018 SERVICE TIME: 10:52 AM The Interdisciplinary team met and reviewed treatment goals and discharge planning. SUBJECTIVE The patient was seen in the unit. The patient reports that he has been feeling good . The patient who was seen in the dining area continues to be pleasantly confused and was only oriented to person but not place or time. . During the interview the patient appears pleasant . At this time, the patient denies suicidal or homicidal thoughts, auditory and visual hallucinations. OBJECTIVE PHYSICAL EXAM: BP 102/60 Pulse 89 Temp 36.7 ?C (98.1 ?F) (Oral) Resp 18 Ht 177.8 cm (5' 10) Wt 76.7 kg (169 lb) SpO2 96% BMI 24.25 kg/m? MENTAL STATUS EXAMINATION: APPEARANCE: In hospital gown BEHAVIOR: Appropriate ORIENTATION: Person SPEECH/LANGUAGE: The patient demonstrates appropriate tone, prosody, fanta, phonetics, and syntax MOOD/AFFECT: Appropriate THOUGHT FORM: Coherent THOUGHT CONTENT: Coherent SUICIDAL IDEATIONS: No suicidal ideation, intent or plan. HOMICIDAL IDEATIONS: No homicidal ideation, intent or plan. INSIGHT: Poor JUDGMENT: Grossly impaired MEMORY/COGNITION: Moderately Impaired PSYCHOMOTOR: Psychomotor activity was normal New problems on the unit since last encounter: See previous EPIC notes Current hospital medications: DATA: Current Facility-Administered Medications Medication Dose Route Frequency - nicotine polacrilex 2 mg gum (NICORETTE) 2 mg ORAL q 2 H PRN - ziprasidone 20 mg injection (GEODON) 20 mg INTRAMUSCULAR q 4 H PRN - acetaminophen 650 mg CUP (TYLENOL) 650 mg ORAL/FEEDING TUBE q 4 H PRN - bacitracin 500 unit/gram 1 application topical ointment 1 application TOPICAL PRN - escitalopram oxalate 10 mg tab(s) (LEXAPRO) 10 mg PEG DAILY - levETIRAcetam 750 mg CUP (KEPPRA) 750 mg ORAL/FEEDING TUBE BID - melatonin 9 mg tab(s) 9 mg PEG AT BEDTIME - QUEtiapine 200 mg tab(s) (SEROquel) 200 mg PEG AT BEDTIME - thiamine 100 mg tab(s) (VITAMIN B1) 100 mg PEG DAILY - pantoprazole 40 mg granules for suspension (PROTONIX) 40 mg ORAL DAILY (6 AM) - ondansetron 4 mg tab(s) (ZOFRAN) 4 mg PEG q 6 H PRN - fludrocortisone 0.1 mg tab(s) (FLORINEF) 0.1 mg ORAL DAILY - folic acid 1 mg tab(s) 1 mg PEG DAILY - pyridoxine (vitamin B6) 25 mg tab(s) (VITAMIN B6) 25 mg PEG DAILY - cyanocobalamin 100 mcg tab(s) (VITAMIN B-12) 100 mcg PEG DAILY - dextromethorphan 20 mg - quiNIDine 10 mg capsule (NUEDEXTA) 1 capsule ORAL q 12 H - QUEtiapine 100 mg tab(s) (SEROquel) 100 mg ORAL/FEEDING TUBE BID - valproic acid 250 mg CUP (DEPAKENE) 250 mg ORAL QID - polyethylene glycol 3350 17 g packet (MIRALAX, GLYCOLAX) 17 g ORAL DAILY - aluminum-magnesium hydroxide-simethicone 200-200-20 mg/5 mL 30 mL (MAALOX,MYLANTA,MAG-AL PLUS) 30 mL ORAL/FEEDING TUBE q 6 H PRN Diagnostic tests reviewed for today's visit: Most recent labs and imaging results. ASSESSMENT/PLAN DIAGNOSIS: 1. 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 Risk Assessment Suicide: moderate Homicide: moderate Deliberate Self-Harm: moderate Aggression: moderate Imminent Physical Self Impairment: moderate INFORMED CONSENT: Yes, completed with the Patient. Discussed the risks, benefits and alternatives to the medication(s) recommended. Consent was given. Interventions Biological: .Continue current meds. Psychological: groups Social: therapeutic milieu DISCHARGE PLANNING: Discharge by perhaps next week SIGNATURE: Tony Jalloh MD PATIENT NAME: Kari Allan DATE: November 12, 2018 TIME: 10:52 AM [facility] ALLIED HEALTHon 11-11-2018 ALLIED HEALTH HNO ID: [id number] Author: PENELOPE Arreaga Service: Recreational Therapy Author Type: Therapist Type: Allied Health Filed: 11/11/2018 3:06 PM Note Text: PROGRESS NOTE BEHAVIORAL HEALTH Topic of Note: Three Day Note SERVICE DATE: 11/11/2018 SERVICE TIME: 0302 The past couple days patient Has been on 1;1 with staff. Pt was off the unit this mornings for a test, this afternoon patient verbally refused to attend arts and crafts group. encouraged patient to just come in and listen to the Music but patient stiff refused. Pt has been visible on the unit this afternoon sitting quietly with staff member 1;1. Will continue to encourage attend participate in all structured groups daily working on positive socialization and coping skills SIGNATURE: PENELOPE Arreaga PATIENT NAME: Kari Allan DATE: November 11, 2018 TIME: 3:02 PM PAGER/CONTACT # [facility] ANES Sis 11-11-2018 ANES POST HNO ID: [id number] Author: Brennan Mcdowell Service: Anesthesiology Author Type: Anesthesiologist Type: Anesthesia PostOp Filed: 11/11/2018 4:43 PM Note Text: POST ANESTHESIA EVALUATION NOTE SERVICE DATE: 11/11/2018 SERVICE TIME: 4:42 PM : 1970 Vitals: 11/11/18 0727 11/11/18 1150 Temp: 37.1 ?C (98.8 ?F) 36.3 ?C (97.3 ?F) 11/11/18 1150 11/11/18 1159 11/11/18 1216 11/11/18 1230 BP: (!) 75/57 80/54 83/54 98/66 11/11/18 1150 11/11/18 1159 11/11/18 1216 11/11/18 1230 Pulse: 88 92 91 92 11/11/18 1150 11/11/18 1159 11/11/18 1216 11/11/18 1230 Resp: 12 17 13 13 11/11/18 1150 11/11/18 1159 11/11/18 1216 11/11/18 1230 SpO2: 99% 100% 97% 99% Validated Vital Signs: Yes POST ANES STATUS: No apparent anesthetic complications. The patient is appropriately hydrated with stable respiratory and cardiovascular status. Patient has safe and adequate airway control. The patient has appropriate pain relief and no significant post operative nausea or vomiting. The patient has achieved baseline mental status. Intra-Operative Events: No Significant Anesthesia Events Further assessment by Anesthesia Service: None Other Remarks: SIGNATURE: Brennan Mcdowell MD PATIENT NAME: Kari Allan DATE: November 11, 2018 TIME: 4:42 PM PAGER/CONTACT #: [phone] [facility] ANES PREOPon 11-11-2018 ANES PREOP HNO ID: [id number] Author: Brennan Mcdowell Service: Anesthesiology Author Type: Anesthesiologist Type: Anesthesia PreOp Filed: 11/11/2018 11:17 AM Note Text: ANESTHESIOLOGY DAY OF SURGERY NOTE SERVICE DATE: 11/11/2018 SERVICE TIME: 11:14 AM : 1970 Procedure(s) (LRB): EGD (N/A) Surgeon(s): Karl Perez Estimated body mass index is 24.25 kg/m? as calculated from the following: Height as of 10/27/18: 177.8 cm (5' 10). Weight as of 11/09/18: 76.7 kg (169 lb). Most recent hematocrit and potassium results: Hematocrit 36.5 11/04/2018 Potassium 4.3 11/04/2018 ANES DOS/PREOP NOTE: Vitals: There were no vitals filed for this visit. ACTIVE PROBLEM LIST Dvt (Deep Venous Thrombosis) (Hcc) Leg Pain Tachycardia Pulmonary Nodule Seen On Imaging Study Alcohol Abuse Back Pain Right Hip Pain Status Post Lumbar Surgery Long-Term Current Use of Opiate Analgesic Pancreatitis Severe Protein-Calorie Malnutrition (Hcc) Thrombocytopenia (Hcc) Etoh Abuse Opiate Dependence, Continuous (Hcc) Nausea AND Vomiting Alcohol Withdrawal With Delirium in Inpatient Treatment (Hcc) Copd, Mild (Hcc) Hypertension Hepatitis Epigastric Pain Alcoholic Ketoacidosis Lactic Acidosis Alcohol-Induced Acute Pancreatitis Without Infection Or Necrosis Macrocytosis Without Anemia Thrombocytopenia Concurrent With and Due to Alcoholism (Hcc) Opacity of Lung On Imaging Study Chest Pain At Rest Aspiration Pneumonia (Hcc) Alcoholic Intoxication (Hcc) Seizure (Hcc) C. Difficile Colitis Sepsis (Hcc) Hematuria Suicidal Ideations Nicotine use disorder, F17.2 Delayed Gastric Emptying GI Obstruction (Hcc) Neurocognitive Disorder Psychosis (Hcc) Ptsd (Post-Traumatic Stress Disorder) Anxiety Depression Seizure Disorder (Hcc) Simple Chronic Bronchitis (Hcc) Anoxic Brain Injury (Hcc) Esophageal Stricture Impulse Control Disorder Dysphagia PAST MEDICAL HISTORY Diagnosis Date - Acute respiratory failure (HCC) - Alcohol abuse - Anemia - Anemia - Back pain - C. difficile colitis - COPD (chronic obstructive pulmonary disease) (HCC) - Drug overdose - DVT (deep venous thrombosis) (HCC) - Dysphasia - Encephalopathy - Opiate dependence, continuous (HCC) - Pancreatitis - Pulmonary nodule seen on imaging study - Renal cyst - Seizure (HCC) - Sepsis (HCC) - Tobacco abuse - Weakness PAST SURGICAL HISTORY Procedure Laterality Date - APPENDECTOMY HX - BACK SURGERY HX - CHOLECYSTECTOMY HX - COLONOSCOPY 2014 - EGD 02/16/2017 - GASTROSTOMY/JEJUNOSTOMY TUBE 02/2017 - PICC LINE INSERT/CONSULT 04/04/2017 FAMILY HISTORY Problem Relation Age of Onset - Diabetes Mother - Blood Disease Father - Alcohol/Drug Brother - other (Pancreatitis) Brother Social History: Social History Tobacco Use - Smoking status: Current Every Day Smoker Packs/day: 0.50 Years: 30.00 Pack years: 15.00 Types: Cigarettes - Smokeless tobacco: Never Used Substance Use Topics - Alcohol use: No Alcohol/week: 28.0 oz Types: 28 Shots of liquor per week Comment: states drinks a 1/5 of vodka or more daily - Drug use: No Comment: chronic prescribed percoet use. Current Facility-Administered Medications on File Prior to Encounter: [[facility] Hold - Suspended Admission] polyethylene glycol 3350 17 g packet (MIRALAX, GLYCOLAX) [Jul - Suspended Admission] valproic acid 250 mg CUP (DEPAKENE) [Jul - Suspended Admission] QUEtiapine 100 mg tab(s) (SEROquel) [[facility] Hold - Suspended Admission] dextromethorphan 20 mg - quiNIDine 10 mg capsule (NUEDEXTA) [[facility] Hold - Suspended Admission] folic acid 1 mg tab(s) [[facility] Hold - Suspended Admission] pyridoxine (vitamin B6) 25 mg tab(s) (VITAMIN B6) [Jul - Suspended Admission] cyanocobalamin 100 mcg tab(s) (VITAMIN B-12) [Jul - Suspended Admission] fludrocortisone 0.1 mg tab(s) (FLORINEF) [[facility] Hold - Suspended Admission] nicotine polacrilex 2 mg gum (NICORETTE) [[facility] Hold - Suspended Admission] ziprasidone 20 mg injection (GEODON) [[facility] Hold - Suspended Admission] acetaminophen 650 mg CUP (TYLENOL) [[facility] Hold - Suspended Admission] bacitracin 500 unit/gram 1 application topical ointment [Jul - Suspended Admission] escitalopram oxalate 10 mg tab(s) (LEXAPRO) [Jul - Suspended Admission] levETIRAcetam 750 mg CUP (KEPPRA) [[facility] - Suspended Admission] magnesium hydroxide 400 mg/5 mL 30 mL (MOM) [[facility] Hold - Suspended Admission] melatonin 9 mg tab(s) [Jul - Suspended Admission] QUEtiapine 200 mg tab(s) (SEROquel) [[facility] Hold - Suspended Admission] thiamine 100 mg tab(s) (VITAMIN B1) [[facility] Hold - Suspended Admission] pantoprazole 40 mg granules for suspension (PROTONIX) [[facility] Hold - Suspended Admission] ondansetron 4 mg tab(s) (ZOFRAN) Current Outpatient Medications on File Prior to Encounter: divalproex DR (DEPAKOTE) 250 mg EC tablet 500 mg twice daily. Give through G-tube acetaminophen (TYLENOL EXTRA STRENGTH) 500 mg tablet 500 mg by PEG route three times daily. COMPOUNDED PRESCRIPTION Flurinef 0.1mg daily Omeprazole Magnesium 2.5 mg suDR 10 mL by PEG route twice daily. QUEtiapine (SEROQUEL) 200 mg tablet Take 1 tablet by mouth daily at bedtime. (Patient taking differently: 200 mg by PEG route daily at bedtime. ) QUEtiapine (SEROQUEL) 50 mg tablet 1 tab daily at 9A and 2P through PEG tube docusate (DIOCTO, COLACE) 100 mg/10 mL liquid Take 10 mL by mouth twice daily. magnesium hydroxide (MOM) 400 mg/5 mL suspension 30 mL by PEG route once daily as needed for Constipation. melatonin 3 mg tablet 3 tablets by PEG route daily at bedtime. escitalopram oxalate (LEXAPRO) 10 mg tablet Take 1 tablet by mouth once daily. (Patient taking differently: 10 mg by PEG route once daily. ) lactose-reduced food/fiber (JEVITY 1.5 KELLIE ORAL) 280 mL by PEG Tube route every 4 hours. ondansetron (ZOFRAN) 4 mg/5 mL solution 4 mg by PEG Tube route every 6 hours as needed for Nausea/Vomiting. bacitracin ointment Apply 1 application to affected area as needed (PEG irritation). vitamin b complex tab 1 tablet by PEG route once daily. famotidine (PEPCID) 20 mg tablet Take 1 tablet by mouth twice daily. (Patient taking differently: 20 mg by PEG route twice daily. ) ipratropium-albuterol (DUONEB) 0.5 mg-3 mg(2.5 mg base)/3 mL nebu Inhale 3 mL as instructed twice daily. acetaminophen (TYLENOL) 160 mg/5 mL (5 mL) solution 650 mg by PEG Tube route every 4 hours as needed (pain/fever). BIFIDOBACTER. BIFIDUM/B.LONGUM (FLORAJEN BIFIDOBLEND ORAL) 2 capsules by PEG Tube route daily before breakfast. levETIRAcetam 750 mg tbsu 750 mg by PEG Tube route twice daily. Miconazole powd 2 % twice daily. colestipol (COLESTID) 1 gram tablet 1 g by PEG Tube route twice daily. No current facility-administered medications for this encounter. Current Outpatient Medications Medication Sig Dispense Refill - divalproex DR (DEPAKOTE) 250 mg EC tablet 500 mg twice daily. Give through G-tube - acetaminophen (TYLENOL EXTRA STRENGTH) 500 mg tablet 500 mg by PEG route three times daily. - COMPOUNDED PRESCRIPTION Flurinef 0.1mg daily - Omeprazole Magnesium 2.5 mg suDR 10 mL by PEG route twice daily. - QUEtiapine (SEROQUEL) 200 mg tablet Take 1 tablet by mouth daily at bedtime. (Patient taking differently: 200 mg by PEG route daily at bedtime. ) - QUEtiapine (SEROQUEL) 50 mg tablet 1 tab daily at 9A and 2P through PEG tube - docusate (DIOCTO, COLACE) 100 mg/10 mL liquid Take 10 mL by mouth twice daily. - magnesium hydroxide (MOM) 400 mg/5 mL suspension 30 mL by PEG route once daily as needed for Constipation. - melatonin 3 mg tablet 3 tablets by PEG route daily at bedtime. - escitalopram oxalate (LEXAPRO) 10 mg tablet Take 1 tablet by mouth once daily. (Patient taking differently: 10 mg by PEG route once daily. ) - lactose-reduced food/fiber (JEVITY 1.5 KELLIE ORAL) 280 mL by PEG Tube route every 4 hours. - ondansetron (ZOFRAN) 4 mg/5 mL solution 4 mg by PEG Tube route every 6 hours as needed for Nausea/Vomiting. - bacitracin ointment Apply 1 application to affected area as needed (PEG irritation). - vitamin b complex tab 1 tablet by PEG route once daily. 30 tablet 2 - famotidine (PEPCID) 20 mg tablet Take 1 tablet by mouth twice daily. (Patient taking differently: 20 mg by PEG route twice daily. ) 60 tablet 2 - ipratropium-albuterol (DUONEB) 0.5 mg-3 mg(2.5 mg base)/3 mL nebu Inhale 3 mL as instructed twice daily. - acetaminophen (TYLENOL) 160 mg/5 mL (5 mL) solution 650 mg by PEG Tube route every 4 hours as needed (pain/fever). - BIFIDOBACTER. BIFIDUM/B.LONGUM (FLORAJEN BIFIDOBLEND ORAL) 2 capsules by PEG Tube route daily before breakfast. - levETIRAcetam 750 mg tbsu 750 mg by PEG Tube route twice daily. - Miconazole powd 2 % twice daily. - colestipol (COLESTID) 1 gram tablet 1 g by PEG Tube route twice daily. Facility-Administered Medications Ordered in Other Encounters Medication Dose Route Frequency Provider Last Rate Last Dose - [Jul - Suspended Admission] polyethylene glycol 3350 17 g packet (MIRALAX, GLYCOLAX) 17 g ORAL DAILY Davis Morel (Pa) 17 g at 11/10/18930 - [Jul - Suspended Admission] valproic acid 250 mg CUP (DEPAKENE) 250 mg ORAL QID [facility] Dora 250 mg at 11/10/182106 - [Jul - Suspended Admission] QUEtiapine 100 mg tab(s) (SEROquel) 100 mg ORAL/FEEDING TUBE BID [facility] Dora 100 mg at 11/10/18 1417 - [JUL Hold - Suspended Admission] dextromethorphan 20 mg - quiNIDine 10 mg capsule (NUEDEXTA) 1 capsule ORAL q 12 H [facility] Dora 1 capsule at 11/10/182107 - [[facility] Hold - Suspended Admission] folic acid 1 mg tab(s) 1 mg PEG DAILY Christa Egriselashvili 1 mg at 11/10/18925 - [[facility] Hold - Suspended Admission] pyridoxine (vitamin B6) 25 mg tab(s) (VITAMIN B6) 25 mg PEG DAILY Christa Egriselashvili 25 mg at 11/10/18925 - [[facility] Hold - Suspended Admission] cyanocobalamin 100 mcg tab(s) (VITAMIN B-12) 100 mcg PEG DAILY Christa Egriselashvili 100 mcg at 11/10/18925 - [[facility] Hold - Suspended Admission] fludrocortisone 0.1 mg tab(s) (FLORINEF) 0.1 mg ORAL DAILY Christa Egriselashvili 0.1 mg at 11/10/1828 - [[facility] Hold - Suspended Admission] nicotine polacrilex 2 mg gum (NICORETTE) 2 mg ORAL q 2 H PRN Tray Beverly MD - [[facility] Hold - Suspended Admission] ziprasidone 20 mg injection (GEODON) 20 mg INTRAMUSCULAR q 4 H PRN Tray Beverly MD 20 mg at 11/08/18827 - [[facility] Hold - Suspended Admission] acetaminophen 650 mg CUP (TYLENOL) 650 mg ORAL/FEEDING TUBE q 4 H PRN Tray Beverly MD 650 mg at 11/09/18929 - [[facility] Hold - Suspended Admission] bacitracin 500 unit/gram 1 application topical ointment 1 application TOPICAL PRN Tray Beverly MD 1 application at 11/09/18916 - [[facility] Hold - Suspended Admission] escitalopram oxalate 10 mg tab(s) (LEXAPRO) 10 mg PEG DAILY Tray Beverly MD 10 mg at 11/10/18924 - [[facility] Hold - Suspended Admission] levETIRAcetam 750 mg CUP (KEPPRA) 750 mg ORAL/FEEDING TUBE BID Tray Beverly MD 750 mg at 11/10/182106 - [[facility] Hold - Suspended Admission] magnesium hydroxide 400 mg/5 mL 30 mL (MOM) 30 mL PEG DAILY PRN Tray Beverly MD 30 mL at 11/09/18 1204 - [[facility] Hold - Suspended Admission] melatonin 9 mg tab(s) 9 mg PEG AT BEDTIME Tray Beverly MD 9 mg at 11/10/182106 - [[facility] Hold - Suspended Admission] QUEtiapine 200 mg tab(s) (SEROquel) 200 mg PEG AT BEDTIME Tray Beverly MD 200 mg at 11/10/182107 - [[facility] Hold - Suspended Admission] thiamine 100 mg tab(s) (VITAMIN B1) 100 mg PEG DAILY Tray Beverly MD 100 mg at 11/10/18924 - [[facility] Hold - Suspended Admission] pantoprazole 40 mg granules for suspension (PROTONIX) 40 mg ORAL DAILY (6 AM) Tray Beverly MD 40 mg at 11/10/18927 - [[facility] Hold - Suspended Admission] ondansetron 4 mg tab(s) (ZOFRAN) 4 mg PEG q 6 H PRN Tray Beverly MD 4 mg at 11/09/182107 Allergies: ALLERGIES Allergen Reactions - Haldol [Haloperidol* Unknown Copied from mar from halfway - Paragoric Swelling DOS EXAM: Adequate NPO status: Yes Anesthetic risks, benefits, alternatives, personnel and consent discussed: Yes Patient agrees to proceed: Yes Previous Anesthesia: No history of adverse event. Airway Assessment: MP 2; Neck ROM: Full ROM without neurologic symptoms; Airway Evaluation: No significant abnormalities Symptoms of Sleep Apnea: None Dentition: Teeth intact Additional Physical Exam: Lungs: Patient health status unchanged since recent history and physical. See history and physical for exam findings. Cardiac: Patient health status unchanged since recent history and physical. See history and physical for exam findings. Additional Pertinent Findings: N/A Blood Products: Not anticipated for this procedure. Anesthetic Plan: MAC with Sedation Pain Management Plan: Parenteral or Oral ASA Class: 3 Other Medical Problems: None Chronic Beta Ofelia medication administered within 24 hours: N/A I have interviewed and examined the patient. I have reviewed the medical record and/or the pre-anesthesia evaluation, pertinent labs, and test results. Significant changes in the patient's condition since the History and Physical, not otherwise documented in primary service progress notes: No This contains updated information obtained within 48 hours of Surgery/Procedure. SIGNATURE: Brennan Mcdowell MD PATIENT NAME: Kari Allan DATE: November 11, 2018 TIME: 11:14 AM CSN: [id number] [facility] CASE MANAGEMon 11-11-2018 CASE MANAGEM HNO ID: [id number] Author: Maggie Villanueva (Sw) Service: ? Author Type: Payroll Master Type: Care Mgt Progress Note Filed: 11/11/2018 9:43 AM Note Text: BEHAVIORAL HEALTH SOCIAL WORK PROGRESS NOTE SERVICE DATE: 11/11/2018 SERVICE TIME: 9:43 AM Treatment team met with patient to discuss care. Patient was pleasant on approach and engaged appropriately. Patient is on 1:1 for safety concerns. He is calm in day area with staff. Patient received all prescribed medications. Patient will go down to radiology for EEG today. SIGNATURE: DANIKA Steele PATIENT NAME: Kari Allan DATE: November 11, 2018 TIME: 9:21 AM [facility] CONSULT PROGon 11-11-2018 Protein mass conc HNO ID: [id number] Author: Karl Perez Service: Gastroenterology Author Type: Physician Type: Consult Progress Note Filed: 11/11/2018 3:25 PM Note Text: Spoke with Dr Bro , patient is scheduled on 11/15 at for EGD and possible Esophageal stent removal , Order in the chart, spoke with Sister Karo about the scope today and the appointment next week. [facility] HISTORY PHYSICALon 9 HISTORY PHYSICAL HNO ID: [id number] Author: Karl Perez Service: Gastroenterology Author Type: Physician Type: HANDP Filed: 11/11/2018 11:27 AM Note Text: INITIAL CONSULT GASTROENTEROLOGY SERVICE DATE: 11/11/2018 SERVICE TIME: 11:24 AM Consulting Service: gastro Opinion/advice regarding: dysphagia ,s/p esophageal stent Plan; EGD Subjective HPI: This is a 48 year old male who presents with on Psych, with dysphagia and regurgitation, s/p esophageal stent placement by DR Bro PAST MEDICAL HISTORY Diagnosis Date - Acute respiratory failure (HCC) - Alcohol abuse - Anemia - Anemia - Back pain - C. difficile colitis - COPD (chronic obstructive pulmonary disease) (HCC) - Drug overdose - DVT (deep venous thrombosis) (HCC) - Dysphasia - Encephalopathy - Opiate dependence, continuous (HCC) - Pancreatitis - Pulmonary nodule seen on imaging study - Renal cyst - Seizure (HCC) - Sepsis (HCC) - Tobacco abuse - Weakness PAST SURGICAL HISTORY Procedure Laterality Date - APPENDECTOMY HX - BACK SURGERY HX - CHOLECYSTECTOMY HX - COLONOSCOPY 2014 - EGD 02/16/2017 - GASTROSTOMY/JEJUNOSTOMY TUBE 02/2017 - PICC LINE INSERT/CONSULT 04/04/2017 FAMILY HISTORY Problem Relation Age of Onset - Diabetes Mother - Blood Disease Father - Alcohol/Drug Brother - other (Pancreatitis) Brother Social History Tobacco Use - Smoking status: Current Every Day Smoker Packs/day: 0.50 Years: 30.00 Pack years: 15.00 Types: Cigarettes - Smokeless tobacco: Never Used Substance Use Topics - Alcohol use: No Alcohol/week: 28.0 oz Types: 28 Shots of liquor per week Comment: states drinks a 1/5 of vodka or more daily - Drug use: No Comment: chronic prescribed percoet use. MEDICATIONS: Prior to Admission Medications: divalproex DR (DEPAKOTE) 250 mg EC tablet 500 mg twice daily. Give through G-tube Omeprazole Magnesium 2.5 mg suDR 10 mL by PEG route twice daily. QUEtiapine (SEROQUEL) 200 mg tablet Take 1 tablet by mouth daily at bedtime. QUEtiapine (SEROQUEL) 50 mg tablet 1 tab daily at 9A and 2P through PEG tube magnesium hydroxide (MOM) 400 mg/5 mL suspension 30 mL by PEG route once daily as needed for Constipation. melatonin 3 mg tablet 3 tablets by PEG route daily at bedtime. escitalopram oxalate (LEXAPRO) 10 mg tablet Take 1 tablet by mouth once daily. ondansetron (ZOFRAN) 4 mg/5 mL solution 4 mg by PEG Tube route every 6 hours as needed for Nausea/Vomiting. bacitracin ointment Apply 1 application to affected area as needed (PEG irritation). vitamin b complex tab 1 tablet by PEG route once daily. famotidine (PEPCID) 20 mg tablet Take 1 tablet by mouth twice daily. acetaminophen (TYLENOL) 160 mg/5 mL (5 mL) solution 650 mg by PEG Tube route every 4 hours as needed (pain/fever). levETIRAcetam 750 mg tbsu 750 mg by PEG Tube route twice daily. colestipol (COLESTID) 1 gram tablet 1 g by PEG Tube route twice daily. acetaminophen (TYLENOL EXTRA STRENGTH) 500 mg tablet 500 mg by PEG route three times daily. COMPOUNDED PRESCRIPTION Flurinef 0.1mg daily docusate (DIOCTO, COLACE) 100 mg/10 mL liquid Take 10 mL by mouth twice daily. lactose-reduced food/fiber (JEVITY 1.5 KELLIE ORAL) 280 mL by PEG Tube route every 4 hours. ipratropium-albuterol (DUONEB) 0.5 mg-3 mg(2.5 mg base)/3 mL nebu Inhale 3 mL as instructed twice daily. BIFIDOBACTER. BIFIDUM/B.LONGUM (FLORAJEN BIFIDOBLEND ORAL) 2 capsules by PEG Tube route daily before breakfast. Miconazole powd 2 % twice daily. Current Facility-Administered Medications Medication Dose Route Frequency - [[facility] Hold - Suspended Admission] nicotine polacrilex 2 mg gum (NICORETTE) 2 mg ORAL q 2 H PRN - [[facility] Hold - Suspended Admission] ziprasidone 20 mg injection (GEODON) 20 mg INTRAMUSCULAR q 4 H PRN - [MAR Hold - Suspended Admission] acetaminophen 650 mg CUP (TYLENOL) 650 mg ORAL/FEEDING TUBE q 4 H PRN - [Jul - Suspended Admission] bacitracin 500 unit/gram 1 application topical ointment 1 application TOPICAL PRN - [Jul - Suspended Admission] escitalopram oxalate 10 mg tab(s) (LEXAPRO) 10 mg PEG DAILY - [Jul - Suspended Admission] levETIRAcetam 750 mg CUP (KEPPRA) 750 mg ORAL/FEEDING TUBE BID - [Jul - Suspended Admission] magnesium hydroxide 400 mg/5 mL 30 mL (MOM) 30 mL PEG DAILY PRN - [Jul - Suspended Admission] melatonin 9 mg tab(s) 9 mg PEG AT BEDTIME - [Jul - Suspended Admission] QUEtiapine 200 mg tab(s) (SEROquel) 200 mg PEG AT BEDTIME - [Jul - Suspended Admission] thiamine 100 mg tab(s) (VITAMIN B1) 100 mg PEG DAILY - [Jul - Suspended Admission] pantoprazole 40 mg granules for suspension (PROTONIX) 40 mg ORAL DAILY (6 AM) - [Jul - Suspended Admission] ondansetron 4 mg tab(s) (ZOFRAN) 4 mg PEG q 6 H PRN - [Jul - Suspended Admission] fludrocortisone 0.1 mg tab(s) (FLORINEF) 0.1 mg ORAL DAILY - [Jul - Suspended Admission] folic acid 1 mg tab(s) 1 mg PEG DAILY - [Jul - Admission] pyridoxine (vitamin B6) 25 mg tab(s) (VITAMIN B6) 25 mg PEG DAILY - [Jul - Suspended Admission] cyanocobalamin 100 mcg tab(s) (VITAMIN B-12) 100 mcg PEG DAILY - [Jul - Suspended Admission] dextromethorphan 20 mg - quiNIDine 10 mg capsule (NUEDEXTA) 1 capsule ORAL q 12 H - [Jul - Suspended Admission] QUEtiapine 100 mg tab(s) (SEROquel) 100 mg ORAL/FEEDING TUBE BID - [Jul - Suspended Admission] valproic acid 250 mg CUP (DEPAKENE) 250 mg ORAL QID - [Jul - Suspended Admission] polyethylene glycol 3350 17 g packet (MIRALAX, GLYCOLAX) 17 g ORAL DAILY ALLERGIES Allergen Reactions - Haldol [Haloperidol* Unknown Copied from jul from halfway - Paragoric Swelling GI SPECIFIC REVIEW OF SYSTEMS: Negative for nausea, vomitting Negative for decreased appetite Negative for change in weight No alteration in bowel habits OTHER ROS: Negative for fever, night sweats, sleep problems, mood or depression. Objective PHYSICAL EXAM: BP 92/67 Pulse 98 Temp 37.1 ?C (98.8 ?F) (Oral) Resp 16 Ht 177.8 cm (5' 10) Wt 76.7 kg (169 lb) SpO2 96% BMI 24.25 kg/m? GENERAL- AAO x 2, no distress HEENT: Moist mucus membranes, no carotid bruit LUNGS: Clear to auscultation bilaterally CARDIAC: S1, S2 heard, no murmur appreciated ABDOMEN: Soft, non-tender without guarding or rigidity, normal bowel sounds EXTREMITIES: No pedal edema DATA: Diagnostic Tests Reviewed for Today's Visit: Most recent labs and imaging results. Most recent labs Most recent imaging Impression/Recommendations egd Dysphagia POA: Unknown Assessment AND Plan: egd Other dysphagia POA: Unknown Assessment AND Plan: same Resolved Problems: * No resolved hospital problems. * SIGNATURE: Karl Perez MD PATIENT NAME: Kari Allan DATE: November 11, 2018 TIME: 11:24 AM PAGER/CONTACT #: [phone] [facility] NURSING PROGon 11-11-2018 Protein mass conc HNO ID: [id number] Author: Jodi (Rn) BEN Umaña Service: Behavioral Health Author Type: Registered Nurse Type: Nursing Progress Note Filed: 11/11/2018 6:48 PM Note Text: Nursing Progress Note Patient Name: Kari Allan Patient Location: [id number]/[place] [id number] Daily Note: Received report from previous shift and assumed care of patient at 0730. Pt is disheveled, unkempt, dressed in hospital attire. Pt was compliant with vitals and assessment. Pt's medications were held due to NPO order for EGD procedure this shift, pt was compliant with NPO status, but was irritable at times due to starving and thirsty. Pt is labile, irritable at times, friendly and pleasant on approach. Pt left unit around 1050 for procedure and returned to unit at 1238, per PACU nurse to nurse, pt tolerated procedure well. Pt has been visible in the day area, social with select peers, and did not attend group this shift. Pt was medication compliant once he returned to the unit this shift. Pt denies SI, HI, AH, VH, and pain at this time. Pt is on a full liquid diet, pt was compliant with diet restrictions and ate dinner without issue this shift. Fall precautions, seizure precautions, 1:1 and Q 15 minute safety checks maintained this shift, will continue to monitor. This note was completed by: Jodi Umaña RN [facility] Protein mass conc HNO ID: [id number] Author: Renée MedinaRn) BEN Lara Service: ? Author Type: Registered Nurse Type: Nursing Progress Note Filed: 11/11/2018 12:38 PM Note Text: Pt discharged via wheelchair and sitter [facility] Protein mass conc HNO ID: [id number] Author: Renée Sutton) BEN Lara Service: ? Author Type: Registered Nurse Type: Nursing Progress Note Filed: 11/11/2018 12:26 PM Note Text: Report called to mental healthe RN [facility] Protein mass conc HNO ID: [id number] Author: Shannon MedinaRn) BEN Alcantara Service: Nursing Author Type: Registered Nurse Type: Nursing Progress Note Filed: 11/11/2018 7:03 AM Note Text: Nursing Progress Note Patient Name: Kari Allan Patient Location: [id number]/[id number]* Daily Note: : Kari was awake in the day area in the beginning of the shift. He was medication compliant with his night time medications via PEG tube. Skin around site is irritated and was cleaned. He is complaining of stomach pain. He had two mainly liquid bowel movements this evening. He denies SI/HI and AVH. He is pleasant and cooperative. 0702: Patient has slept 6.5 hours overnight. Arm band intact, safety checks maintained per unit protocol. 1:1 with staff maintained. This note was completed by: Shannon Alcantara RN [facility] Protein mass conc HNO ID: [id number] Author: Fabricio Vallejo LPN Service: ? Author Type: LICENSED NURSE Type: Nursing Progress Note Filed: 11/11/2018 7:06 AM Note Text: Nursing Progress Note Patient Name: Kari Allan Patient Location: [id number]/[place] [id number]* Daily Note:0200-Patient awake and alert to self and place. He is calm and cooperative. Friendly upon approach. He engages appropriately. Some difficulty sleeping. No behavioral issues. Patient produced tanned to clear liquid BM. Instructed patient not to eat or drink for procedure and he is agreeable. 0500-Patient awake and up to bathroom. Produced liquid waite - brown colored BM. Patient with some mild nausea. Mouth care encouraged. Patient cooperative and without agitation. 0700-Patient slept 6 hours. He is intermittently irritable, but cooperative. This note was completed by: Fabricio Vallejo LPN [facility] NUTRITIONon 11-11-2018 NUTRITION HNO ID: [id number] Author: Serge Yost Service: Nutrition Therapy Author Type: Registered Dietitian Type: Nutrition Filed: 11/11/2018 12:20 PM Note Text: NUTRITION PROGRESS NOTE SERVICE DATE: 11/11/2018 SERVICE TIME: 1200 Pt off floor for EGD for esophageal stent dysfunction. Defer diet advancement to GI. Will follow peripherally and intervene PRN. Refer to note from 11/07 for assessment. SIGNATURE: Serge Yost RD PATIENT NAME: Kari Allan DATE: November 11, 2018 TIME: 12:18 PM PAGER/CONTACT #: [phone] [facility] PROGRESSon 11-11-2018 Protein mass conc HNO ID: [id number] Author: Ajith Palomares Service: Psychiatry Author Type: Physician Type: Progress Notes Filed: 11/11/2018 1:01 PM Note Text: 11/11/2018 .1:00 PM Notified patient has returned from procedure Ok to restart all medications/orders held for leave Ajith Palomares, DO Current Facility-Administered Medications Medication Dose Route Frequency - nicotine polacrilex 2 mg gum (NICORETTE) 2 mg ORAL q 2 H PRN - ziprasidone 20 mg injection (GEODON) 20 mg INTRAMUSCULAR q 4 H PRN - acetaminophen 650 mg CUP (TYLENOL) 650 mg ORAL/FEEDING TUBE q 4 H PRN - bacitracin 500 unit/gram 1 application topical ointment 1 application TOPICAL PRN - escitalopram oxalate 10 mg tab(s) (LEXAPRO) 10 mg PEG DAILY - levETIRAcetam 750 mg CUP (KEPPRA) 750 mg ORAL/FEEDING TUBE BID - magnesium hydroxide 400 mg/5 mL 30 mL (MOM) 30 mL PEG DAILY PRN - melatonin 9 mg tab(s) 9 mg PEG AT BEDTIME - QUEtiapine 200 mg tab(s) (SEROquel) 200 mg PEG AT BEDTIME - thiamine 100 mg tab(s) (VITAMIN B1) 100 mg PEG DAILY - pantoprazole 40 mg granules for suspension (PROTONIX) 40 mg ORAL DAILY (6 AM) - ondansetron 4 mg tab(s) (ZOFRAN) 4 mg PEG q 6 H PRN - fludrocortisone 0.1 mg tab(s) (FLORINEF) 0.1 mg ORAL DAILY - folic acid 1 mg tab(s) 1 mg PEG DAILY - pyridoxine (vitamin B6) 25 mg tab(s) (VITAMIN B6) 25 mg PEG DAILY - cyanocobalamin 100 mcg tab(s) (VITAMIN B-12) 100 mcg PEG DAILY - dextromethorphan 20 mg - quiNIDine 10 mg capsule (NUEDEXTA) 1 capsule ORAL q 12 H - QUEtiapine 100 mg tab(s) (SEROquel) 100 mg ORAL/FEEDING TUBE BID - valproic acid 250 mg CUP (DEPAKENE) 250 mg ORAL QID - polyethylene glycol 3350 17 g packet (MIRALAX, GLYCOLAX) 17 g ORAL DAILY Ajith Palomares, DO [facility] Protein mass conc HNO ID: [id number] Author: Ajith Palomares Service: Psychiatry Author Type: Physician Type: Progress Notes Filed: 11/11/2018 10:33 AM Note Text: PROGRESS NOTE BEHAVIORAL HEALTH SERVICE DATE: 11/11/2018 SERVICE TIME: 1030 Reviewed admitting history- Kari Allan is a 48 year old male with hx of anoxic brain injury, anoxic encephalopathy, pancreatitis, seizures, esphageal stricture, COPD, and DVT who was?brought in to [facility]by ambulance??for aggressive behaviors Remains on 05-31 with staff. Subjective No acute distress or behavioral issues observed at this time. . Denies any audio./visual hallucinations and denies any suicidal/homicidal ideation at this time. GI symptoms persist, prn zofran needed. Also, many prns for behaviors. Consider inc am seroquel, but no prn geodon in last few days. . Seen by gi- esophageal gram done yesterday. Patient will go down to radiology for EEG today. Objective PHYSICAL EXAM: BP 92/67 Pulse 98 Temp 37.1 ?C (98.8 ?F) (Oral) Resp 16 Ht 177.8 cm (5' 10) Wt 76.7 kg (169 lb) SpO2 96% BMI 24.25 kg/m? MENTAL STATUS EXAMINATION: Appearance: Casually dressed and Disheveled Behavior: Disorganized; confused at times. Orientation: a+0x1 Speech/Language: soft, mumbled, difficult to understand at times Mood/Affect: Anxious and Distressed Thought Form: Perseveration Thought Content: Vague today. Suicidal Ideations: No suicidal ideation, intent or plan. Homicidal Ideations: No homicidal ideation, intent or plan. Insight: Insight is absent Judgment: Grossly impaired Memory/Cognition: Moderately Impaired Psychomotor: slowed NEW PROBLEMS ON UNIT SINCE LAST ENCOUNTER: None Current Facility-Administered Medications Medication Dose Route Frequency - nicotine polacrilex 2 mg gum (NICORETTE) 2 mg ORAL q 2 H PRN - ziprasidone 20 mg injection (GEODON) 20 mg INTRAMUSCULAR q 4 H PRN - acetaminophen 650 mg CUP (TYLENOL) 650 mg ORAL/FEEDING TUBE q 4 H PRN - bacitracin 500 unit/gram 1 application topical ointment 1 application TOPICAL PRN - escitalopram oxalate 10 mg tab(s) (LEXAPRO) 10 mg PEG DAILY - levETIRAcetam 750 mg CUP (KEPPRA) 750 mg ORAL/FEEDING TUBE BID - magnesium hydroxide 400 mg/5 mL 30 mL (MOM) 30 mL PEG DAILY PRN - melatonin 9 mg tab(s) 9 mg PEG AT BEDTIME - QUEtiapine 200 mg tab(s) (SEROquel) 200 mg PEG AT BEDTIME - thiamine 100 mg tab(s) (VITAMIN B1) 100 mg PEG DAILY - pantoprazole 40 mg granules for suspension (PROTONIX) 40 mg ORAL DAILY (6 AM) - ondansetron 4 mg tab(s) (ZOFRAN) 4 mg PEG q 6 H PRN - fludrocortisone 0.1 mg tab(s) (FLORINEF) 0.1 mg ORAL DAILY - folic acid 1 mg tab(s) 1 mg PEG DAILY - pyridoxine (vitamin B6) 25 mg tab(s) (VITAMIN B6) 25 mg PEG DAILY - cyanocobalamin 100 mcg tab(s) (VITAMIN B-12) 100 mcg PEG DAILY - dextromethorphan 20 mg - quiNIDine 10 mg capsule (NUEDEXTA) 1 capsule ORAL q 12 H - QUEtiapine 100 mg tab(s) (SEROquel) 100 mg ORAL/FEEDING TUBE BID - valproic acid 250 mg CUP (DEPAKENE) 250 mg ORAL QID - polyethylene glycol 3350 17 g packet (MIRALAX, GLYCOLAX) 17 g ORAL DAILY DATA: No New Labs Assessment/Plan DIAGNOSIS: PRIMARY: Impulse-Control Disorder Intermittent Explosive Disorder Traumatic Brain Injury with Pseudobulbar Affect Polysubstance Abuse History , Treatment non-compliance Alcohol dep GAF:30-21 Behavior is considerably influenced by delusions or hallucination or serious impairment in communication or judgment RISK ASSESSMENT: Suicide: low Homicide: low Deliberate Self-Harm: low Aggression: moderate-high Imminent Physical Self Impairment: low INFORMED CONSENT: Yes, completed with the patient's guardian.. Discussed the risks, benefits and alternatives to the medication(s) recommended. Consent was given. INTERVENTION: Biological: Continue Nuedexta 20/10 mg q12H, Lexapro 10 mg daily, Melatonin 9 mg qhs, Seroquel 100 mg BID and 200 mg qhs and Depakote 250 mg QID. Will recheck VPA in AM. Consider inc seroquel am dosing with hopes for less need for prn geodon. GI consult- nausea persists. . GI consult- Psychological: mileiu Social: discharge and follow up planning DISCHARGE PLANNING: when stable return to Shelter Facility SIGNATURE: Ajith Palomares DO PATIENT NAME: Kari Allan DATE: November 11, 2018 TIME: 1030 [facility] CASE MANAGEMon 11-10-2018 CASE MANAGEM HNO ID: [id number] Author: Roselia Willams (Lsw) Service: Social Work Author Type: Payroll Master Type: Care Mgt Progress Note Filed: 11/10/2018 2:31 PM Note Text: BEHAVIORAL HEALTH SOCIAL WORK PROGRESS NOTE SERVICE DATE: 11/10/2018 SERVICE TIME: 2:22 PM Mirna met with the pt today while rounding with the doctor. The pt's sleep and behaviors have improved. He is receiving fewer PRN's. The pt is not stable medically. He is vomiting and his stomach is painful. The pt is being seen by a GI specialist. Mirna updated the [facility] via [facility]. They are aware the pt needs further stabilization for medical concerns. Mirna updated the pt' guardian /sister Karo Sanford @ [phone] to the above information. She has also been contacted by the GI physician. SIGNATURE: DANIKA Suero PATIENT NAME: Kari Allan DATE: November 10, 2018 TIME: 2:22 PM [facility] HOSPon 11-10-2018 HOSP Patient:Tari Allan MRN: Height:5' 10(1.778 m) Weight:169 lb (76.658 kg) Outpatient Medications as of 11/11/18: divalproex DR (DEPAKOTE) 250 mg EC tablet acetaminophen (TYLENOL EXTRA STRENGTH) 500 mg tablet COMPOUNDED PRESCRIPTION Omeprazole Magnesium 2.5 mg suDR QUEtiapine (SEROQUEL) 200 mg tablet QUEtiapine (SEROQUEL) 50 mg tablet docusate (DIOCTO, COLACE) 100 mg/10 mL liquid magnesium hydroxide (MOM) 400 mg/5 mL suspension melatonin 3 mg tablet escitalopram oxalate (LEXAPRO) 10 mg tablet lactose-reduced food/fiber (JEVITY 1.5 KELLIE ORAL) ondansetron (ZOFRAN) 4 mg/5 mL solution bacitracin ointment vitamin b complex tab famotidine (PEPCID) 20 mg tablet ipratropium-albuterol (DUONEB) 0.5 mg-3 mg(2.5 mg base)/3 mL nebu acetaminophen (TYLENOL) 160 mg/5 mL (5 mL) solution BIFIDOBACTER. BIFIDUM/B.LONGUM (FLORAJEN BIFIDOBLEND ORAL) levETIRAcetam 750 mg tbsu Miconazole powd colestipol (COLESTID) 1 gram tablet Admission/Clinic Administered Medications as of 11/11/18: polyethylene glycol 3350 17 g packet (MIRALAX, GLYCOLAX) valproic acid 250 mg CUP (DEPAKENE) QUEtiapine 100 mg tab(s) (SEROquel) dextromethorphan 20 mg - quiNIDine 10 mg capsule (NUEDEXTA) folic acid 1 mg tab(s) pyridoxine (vitamin B6) 25 mg tab(s) (VITAMIN B6) cyanocobalamin 100 mcg tab(s) (VITAMIN B-12) fludrocortisone 0.1 mg tab(s) (FLORINEF) nicotine polacrilex 2 mg gum (NICORETTE) ziprasidone 20 mg injection (GEODON) acetaminophen 650 mg CUP (TYLENOL) bacitracin 500 unit/gram 1 application topical ointment escitalopram oxalate 10 mg tab(s) (LEXAPRO) levETIRAcetam 750 mg CUP (KEPPRA) magnesium hydroxide 400 mg/5 mL 30 mL (MOM) melatonin 9 mg tab(s) QUEtiapine 200 mg tab(s) (SEROquel) thiamine 100 mg tab(s) (VITAMIN B1) pantoprazole 40 mg granules for suspension (PROTONIX) ondansetron 4 mg tab(s) (ZOFRAN) Problem List: DVT (deep venous thrombosis) ([facility]) [I82.409] Leg pain [M79.606] Tachycardia [R00.0] Pulmonary nodule seen on imaging study [R91.1] Alcohol abuse [F10.10] Back pain [M54.9] Right hip pain [M25.551] Status post lumbar surgery [Z98.890] Long-term current use of opiate analgesic [Z79.891] Pancreatitis [K85.90] Severe protein-calorie malnutrition (HCC) [E43] Thrombocytopenia (HCC) [D69.6] ETOH abuse [F10.10] Opiate dependence, continuous (HCC) [F11.20] Nausea AND vomiting [R11.2] Alcohol withdrawal with delirium in inpatient treatment (HCC) [F10.231] COPD, mild (HCC) [J44.9] Hypertension [I10] Hepatitis [K75.9] Epigastric pain [R10.13] Alcoholic ketoacidosis [E87.2] Lactic acidosis [E87.2] Alcohol-induced acute pancreatitis without infection or necrosis [K85.20] Macrocytosis without anemia [D75.89] Thrombocytopenia concurrent with and due to alcoholism (HCC) [D69.59, F10.20] Opacity of lung on imaging study [R91.8] Chest pain at rest [R07.9] Aspiration pneumonia (HCC) [J69.0] Alcoholic intoxication (HCC) [F10.929] Seizure (HCC) [R56.9] C. difficile colitis [A04.72] Sepsis (HCC) [A41.9] Hematuria [R31.9] Suicidal ideations [R45.851] Nicotine use disorder, F17.2 [F17.200] Delayed gastric emptying [K30] GI obstruction (HCC) [K56.609] Neurocognitive disorder [R41.9] Psychosis (HCC) [F29] PTSD (post-traumatic stress disorder) [F43.10] Anxiety [F41.9] Depression [F32.9] Seizure disorder (HCC) [G40.909] Simple chronic bronchitis (HCC) [J41.0] Anoxic brain injury (HCC) [G93.1] Esophageal stricture [K22.2] Impulse control disorder [F63.9] Dysphagia [R13.10] Other dysphagia [R13.19] Allergies: Haldol [Haloperidol Lactate] Paragoric Date Verified: 11/11/18 Lab Values Lab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 his sister, Clari, for around 4 years. Prior to Admission, Patient was Living with: N/A - Patient From Facility Marital Status: Pt is . Children (including quality of relationship): Pt has 4 children, 1 son and 3 daughters. His relationship is estranged with his children. He has 3 granddaughters. Sexual Orientation: Heterosexual SOCIAL HISTORY Kari Allan was born in [place], [place] and raised in [place], [place] by his mother and father. He has 1 sister, Clari; 2 half-brothers; and 1 half-sister. 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 Financial Resources: Social Security (SSI/SSDI) Health Insurance: PRIMARY: Medicaid Status (including history of combat experience): None Legal History: According to pt's chart, pt had multiple arrests in the past. Pt has reportedly been in skilled nursing and residential many times. His sister reports pt was a felon as a teenager, and had DUI's as an adult. Christian/Spirituality: None and Unknown PSYCHIATRIC HISTORY: - Psychiatrist: Pt follows Dr. Wang at the facility. - Prior Diagnoses: Yes, Depression -Medications prior to admission: Millicent Malagon Vraylar Has Patient Been Hospitalized Previously for Psychiatric Reasons? Yes, but there was no admission within the past 30 days. Substance Use and Treatment History: Pt has an extensive history of alcohol abuse. According to pt's chart, his alcohol use reportedly started around age 13-14; used to drink heavily; had withdrawal seizures in January 2017 which led to disability. His sister reports pt was in treatment for alcohol abuse when he was 15 or 16. Pt reportedly has a history of cocaine abuse as well. Do special considerations/accommodatio ns need to be made (i.e. preferred language, literacy, gender identity, physical disability such as deaf or blind, etc)? 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 Yes FREEDOM OF CHOICE EXPLAINED: Yes. A list of appropriate referrals presented to/discussed with Patient and Guardian on 10/28/2018 at 14:40 [facility]-owned/affiliated facilities and agencies have been identified NEEDS PRIOR TO DISCHARGE: Waiting for: Psychiatric Stabilization Collateral Information OBSTACLES TO TREATMENT/POST-DISCHARGE CHALLENGES: Mental Status Poor Insight SUMMARY: Treatment team met with patient for initial assessment. Patient was calm and cooperative. Patient appears to be a poor historian. Patient denied incidents that led to his admission. Patient was not able to state date or facility he is at currently. SW sent referral to [facility] and was notified that he is able to return at [facility]. MIRNA met with nurse Addie from facility on unit. Bulk Plant Supervisor provided an updated on his care. She reported that patient has been increasingly aggressive at NC without triggers. SW spoke with patient's sister Clari to gain collateral information. Sister was updated with discharge plans and care. She is in agreement with patient returning to [facility] at discharge. Sister/ guardian was able to provide verbal consent to treat and force medications. SIGNATURE: DANIKA Steele PATIENT NAME: Kari Allan DATE: October 28, 2018 TIME: 8:[address] 10/28/2018 3:17 PM Addendum NUTRITION THERAPY SCREENING NOTE SERVICE DATE: 10/28/2018 SERVICE TIME: 11:00 AM NUTRITION CARE PLAN Intervention: - Recommend NET SOFTWARE ARCHITECT evaluation - Advance diet per NET SOFTWARE ARCHITECT - Trial Ensure Clear TID in the interim - Replace K+ - Advance diet to FL per NET SOFTWARE ARCHITECT - order MBSS Collaborated with Davis Morel Pa-C and orders written Discharge Nutrition Recommendations: To be determined Per HPI: 48 yo M admitted for agitation. 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 Hx of respiratory failure secondary to opioid drug overdose, alcohol abuse. He has a history of pancreatitis and has a G-tube in place. PAST MEDICAL HISTORY Diagnosis Date - Acute respiratory failure (HCC) - Alcohol abuse - Anemia - Anemia - Back pain - C. difficile colitis - COPD (chronic obstructive pulmonary disease) (HCC) - Drug overdose - DVT (deep venous thrombosis) (HCC) - Dysphasia - Encephalopathy - Opiate dependence, continuous (HCC) - Pancreatitis - Pulmonary nodule seen on imaging study - Renal cyst - Seizure (HCC) - Sepsis (HCC) - Tobacco abuse - Weakness Labs: Hypokalemia Consulted for oral diet +/- TF. Unclear feeding program tug captain - supposedly pt was on pudding thick diet. The patient no longer infuses TF via PEG but uses it for medications; G tube patent and CT of the abdomen was negative. He has gained 40kg over the past year and appears very well nourished. The patient does not know the consistency of the food or liquid he eats/drinks, but admits to drinking water, juice etc. Pt was last assessed by a [facility] RD and NET SOFTWARE ARCHITECT in 2018. He needs a repeat evaluation before safely advancing his diet, which I suspect is closer to regular given weight gain and lack of TF infusion. Will add CL supplements in the interim. Orders Placed This Encounter DIET LIQUID Standing Status: Standing Number of Occurrences: 1 Order Specific Question: Liquid Diet Answer: CLEAR LIQUID Supplement 1 Frequency: 7. BREAKFAST, LUNCH, DINNER Supplement 1: ENSURE CLEAR APPLE There are no questions and answers to display. There are no questions and answers to display. Nutritional Intake Prior to Admission: Unable to determine Anthropometrics: Height: 177.8 cm (5' 10) Admission Weight: 90.7 kg (200 lb) Current Weight: 90.7 kg (200 lb) Body mass index is 28.7 kg/m?. overweight Weight has increased by 40 kg over 12 months representing 75 % weight change clinically significant Last Wt 10/27/18 : 90.7 kg (200 lb) 10/26/18 : 90.7 kg (200 lb) 08/31/18 : 83.1 kg (183 lb 3.2 oz) 01/04/18 : 57.6 kg (127 lb) 12/26/17 : 56.7 kg (125 lb) 11/30/17 : 57.6 kg (127 lb) 11/01/17 : 53.5 kg (118 lb) 10/06/17 : 52.8 kg (116 lb 8 oz) 09/28/17 : 50.1 kg (110 lb 7.2 oz) 09/21/17 : 53.8 kg (118 lb 9.6 oz) 08/07/17 : 52.2 kg (115 lb) 08/06/17 : 51.5 kg (113 lb 8.6 oz) 07/13/17 : 53.1 kg (117 lb) 04/23/17 : 53.3 kg (117 lb 9.6 oz) 04/08/17 : 54.3 kg (119 lb 11.4 oz) 04/05/17 : 54.3 kg (119 lb 11.4 oz) 03/16/17 : 56.8 kg (125 lb 3.5 oz) 01/15/17 : 60.7 kg (133 lb 14.4 oz) 09/18/16 : 64.9 kg (143 lb) 09/10/16 : 64.4 kg (142 lb) Recent Labs 10/26/18 1915 GLUC 103* BUN 9 CREAT 0.91 NA 140 K 3.0* CHLOR 96* CO2 34* ALB 4.0 HB 14.6 HCT 43.2 WBC 9.96 MNT Billing Type: Initial Assess/15 min 2 units SIGNATURE: Serge Yost RD PATIENT NAME: Kari Allan DATE: October 28, 2018 TIME: 11:27 AM PAGER: [phone] Previous Version Alma Rosa Hanna RN, RN 10/28/2018 7:26 PM Signed Nursing Progress Note Patient Name: Kari Allan Patient Location: [id number]/[place] [id number] 0700- Assumed care. Patient was compliant with morning medication. Flat affect. He is in control and cooperative. No agitation or aggression observed. PEG tube patent. 1200- Line Haul Truck Driver from patients halfway came to check on patient. He received a swallow evaluation and its being considered whether or not patient can advance to a thicker diet. The briefcase sewer stated that patient has been on a liquid diet for awhile due to dysphagia. He complains of ongoing stomach pain that is not relieved with PRN Zofran. He states he has not urinated today, but its unclear if that's the case considering his poor memory. He was bladder scanned and it read 50 cc. He can be irritable with other patients but has remained in control. Medications have been put through PEG tube without issues. He continues to eat liquids for meals, and he eats well. This note was completed by: Alma Rosa Hanna, BEN Pressley CCC-NET SOFTWARE ARCHITECT 10/28/2018 3:20 PM Signed Speech Therapy Clinical Swallow Evaluation SERVICE DATE: 10/28/2018 SERVICE TIME: 1440 to 1500 ROOM: [id number] Nursing Recommendations: Reinforce use of swallowing strategies Diet Recommendations: Full Liquids Swallowing Precautions Recommendations: Alert (patient should be fully alert for P.O. intake);Sit upright 90 degrees for all PO;Small Bite/Sip;Oral Care before and after meals;Supervision/Assistanc e for meals.;Maintain an upright position 20-30 minutes following all oral intake;Feed / Eat at a slow rate Instrumental Swallow Assessment Recommendations: Modified Barium Swallow Study (MBSS) Results and Recommendations Discussed With: Patient;Nurse Recommended Discharge Disposition: Subacute/SNF Justification For Post Acute Needs: Anticipated community discharge IMPRESSION: Patient with history of dysphagia and esophageal stent denies dysphagia currently. Restricted to full liquid diet according to his halfway. Patient is unsure why. No s/s of aspiration observed with formal bedside swallow assessment which included the Charisma 3 oz water challenge. Consider modified barium swallow study for further assessment of swallow function as patient would like to advance to solid food. Rehabilitation Precautions: Aspiration Precautions;Dysphagia;Cogni tive Linguistics Deficits;Modified Diet ASSESSMENT: Tolerated Full Session Alert and oriented to self and hospital. Slow to respond. Poor historian. Denied dysphagia however volitional swallow was extremely effortful for him to perform. Oral motor assessment unremarkable otherwise. Patient passed the 3 oz water challenge. Agreed with MBSS. Nurse informed. Goals for Plan of Care: Swallow Goals: Patient will tolerate Full Liquids diet consistency while utilizing compensatory/swallowing strategies given no cues in 100% of trials so that the patient will minimize the signs/symptoms of dysphagia. Patient, Caregiver, Family will demonstrate adequate return of knowledge of all compensatory strategies/instruction to effectively assist the patient in immediate safety with oral intake and swallowing. Patient will participate in a Modified Barium Swallow Study (MBS) to thoroughly evaluate the oral and pharyngeal phase of the swallow, which cannot be substantiated through a clinical swallowing evaluation only. Through further diagnostic testing a definitive diagnosis/identification of the patient's current swallowing function and recommended treatment plan can be established. Patient /Caregiver Goals: Eat/Drink Without Restrictions Progress Toward Goals: Progressing as expected Speech Rehab Potential: Good PLAN: Treatment Frequency (times per week): 2 Current admission Treatment Interventions: Dysphagia Management Plan of Care Developed with: Patient;Caregiver TREATMENT INTERVENTIONS: Therapy Diagnosis: Dysphagia, unspecified Interventions Provided: Clinical Swallow Evaluation (37823) $ Clinical Swallow Evaluation (00215) Billed Units: 1 unit Total Treatment Time (minutes): 20 SUBJECTIVE: Current Hospital Course: Chart reviewed; brought in to [facility]ED from Snf[facility]by ambulance??for aggressive behaviors. Noted oral temp of 99.[address] in August showed Mild infectious/inflammatory bronchiolitis scattered in both lungs. Reason for Speech Therapy Consult: dysphagia, advance diet Relevant Past Medical History: anoxic brain injury, anoxic encephalopathy, pancreatitis, seizures, esphageal stricture, COPD, and DVT, esophageal stent, dysphagia Patient Report: wants solid food Home Environment Prior Functional Level: Required Assistance Assistance Required With: Self Care;Safety Assistance Available: Other: See Comment(from SF) Prior Swallowing Function/Diet Textures: Full Liquids Please see discipline specific clinical documentation flowsheet for complete details for this therapy evaluation/treatment. SIGNATURE: Jerry Pressley [facility]-NET SOFTWARE ARCHITECT PATIENT NAME: Kari Allan DATE: October 28, 2018 TIME: 3:12 PM Kerri Slaughter RN, RN 10/29/2018 6:13 AM Addendum Nursing Progress Note Patient Name: Kari Allan Patient Location: [id number]/[place] [id number] Daily Note:Assumed care of pt at 1930. Pt in day area. Pt is anxious, pacing. Pt c/o upset stomach. Pt received zofran at 1950 through PEG tube with no difficulty. Pt is social when spoken to by other pts. Pt calm and in control. Pt denies si/hi, avh, dep, anx, delusions at this time. 2049: pt takes hs meds with no issues. Pt received prn ativan with hs meds for anxiety. Pt is currently eating snack of chicken broth. Pt educated on the need to stay up right after eating to prevent complications, pt verbalized understanding. Will cont to monitor. 0020: pt unsteady coming out of room. Pt c/o im going to be sick. pt directed back to room, given basin. Pt instructed to call out for help when getting up, unknown if understood. 0200: pt asleep in room. No s/s of distress noted. 0400: pt awake and c/o upset stomach. Pt received prn zofran per jul. 0600: pt in room asleep, resp even and unlabored. Will cont to monitor. This note was completed by: Kerri Slaughter, RN Previous Version Gerson Hickey, RN, RN 10/29/2018 2:46 PM Addendum Nursing Progress Note Patient Name: Kari Allan Patient Location: [id number]/[place] [id number] Daily Note: Patient presents disheveled in hospital attire. Upright, sitting at 90 degrees for full liquid breakfast tolerated well. Patient denies nausea, though he continuously requests Zofran. He reports pain at his peg tube insertion site, area is clean, no redness noted. Medicated with Tylenol with good effect. Bactroban PRN applied to area. 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 Oriented to time and date, unit. Patient can be inappropriate at times, coming into day area half dressed seeking assistance with snaps on pants. Redirected to his room, assistance with charissa care and dressing needed. He is calm, cooperative and accepts direction well. Medications via peg tube. Peg flushed with 30 cc water, it is patent and flushes easily. No residual observed. He denies si/hi/avh. He likes fishing and is minimally social with outgoing peer. Childlike in demeanor. He has remained visible on the unit. No acute distress or behavioral issues observed at this time. Will continue to monitor pt q 15 minutes on rounds for safety. Patient tolerated lunch well, liquid diet and supplemental nutritional drink. He remains cooperative and directable. He briefly attended group but came out soon after c/o what appears to be anxiety. Medicated with Ativan 2 mg IM with good effect. Patient has remained visible on unit. Calm and cooperative. Peg tube remains patent and flushes easily. This note was completed by: Gerson Hickey RN Previous Version Anson Mcknight MD 10/29/2018 1:25 PM Signed PROGRESS NOTE BEHAVIORAL HEALTH SERVICE DATE: 10/29/2018 SERVICE TIME: 12:17 PM The Interdisciplinary team met and reviewed treatment goals and discharge planning. Subjective Per nursing, pt was up much of the night, complaining of nausea, intermittently sleeping. No behavioral issues. Pt is pleasant, somewhat concrete, denies any issues at this time. Objective PHYSICAL EXAM: BP 99/76 Pulse 99 Temp 36.8 ?C (98.2 ?F) (Oral) Resp 16 Ht 177.8 cm (5' 10) Wt 90.7 kg (200 lb) SpO2 96% BMI 28.70 kg/m? MENTAL STATUS EXAMINATION: Appearance: Disheveled, unkempt, appears much older than his stated age and In hospital gown Behavior: Disorganized Orientation: Person Speech/Language: Garbled, Rambling and Underproductive Mood/Affect: Having Trouble Concentrating Thought Form: concrete, disorganized Thought Content: denies AVH Suicidal Ideations: No suicidal ideation, intent or plan. Homicidal Ideations: No homicidal ideation, intent or plan. Insight: Insight is absent Judgment: Grossly impaired Memory/Cognition: Unable to Assess Psychomotor: Psychomotor activity was normal NEW PROBLEMS ON UNIT SINCE LAST ENCOUNTER: None Current Facility-Administered Medications Medication Dose Route Frequency - nicotine polacrilex 2 mg gum (NICORETTE) 2 mg ORAL q 2 H PRN - LORazepam 2 mg (ATIVAN) 2 mg ORAL q 4 H PRN Or - LORazepam 2 mg injection (ATIVAN) 2 mg INTRAMUSCULAR q 4 H PRN - ziprasidone 20 mg injection (GEODON) 20 mg INTRAMUSCULAR q 4 H PRN - acetaminophen 650 mg CUP (TYLENOL) 650 mg ORAL/FEEDING TUBE q 4 H PRN - bacitracin 500 unit/gram 1 application topical ointment 1 application TOPICAL PRN - escitalopram oxalate 10 mg tab(s) (LEXAPRO) 10 mg PEG DAILY - levETIRAcetam 750 mg CUP (KEPPRA) 750 mg ORAL/FEEDING TUBE BID - magnesium hydroxide 400 mg/5 mL 30 mL (MOM) 30 mL PEG DAILY PRN - melatonin 9 mg tab(s) 9 mg PEG AT BEDTIME - QUEtiapine 200 mg tab(s) (SEROquel) 200 mg PEG AT BEDTIME - QUEtiapine 50 mg tablet (SEROquel) 50 mg ORAL/FEEDING TUBE BID - thiamine 100 mg tab(s) (VITAMIN B1) 100 mg PEG DAILY - pantoprazole 40 mg granules for suspension (PROTONIX) 40 mg ORAL DAILY (6 AM) - ondansetron 4 mg tab(s) (ZOFRAN) 4 mg PEG q 6 H PRN - dextromethorphan 20 mg - quiNIDine 10 mg capsule (NUEDEXTA) 1 capsule ORAL DAILY - fludrocortisone 0.1 mg tab(s) (FLORINEF) 0.1 mg ORAL DAILY - b complex, c, folic acid 1 mg renal vitamins 1 capsule (NEPHROCAPS) 1 capsule ORAL DAILY - valproic acid 125 mg CUP (DEPAKENE) 125 mg ORAL QID DATA: Diagnostic tests reviewed for today's visit: Most recent labs Assessment/Plan DIAGNOSIS: 1. PRIMARY: Dementia with behavioral disturbance 2. Substance-Related Disorder Alcohol Dependence and Cocaine Dependence 3. Hx of Anoxic Brain Injury ? GAF: - Some danger of hurting self or others ? INFORMED CONSENT: Unable to Participate ? RISK ASSESSMENT: Suicide: Low Homicide: Low Deliberate Self-Harm: Low Aggression: Moderate Imminent Physical Self Impairment: Low ? INTERVENTION: Biological: Seroquel 50 mg BID, Lexapro 10 mg daily, swtich Depakote Sprinkles 125 mg QID to depakene 125 mg QID, Nuedexta 20/10 mg capsule daily, and Melatonin 9 mg qhs Psychological: milieu Social: avoid isolation DISCHARGE PLANNING: To be determined SIGNATURE: Anson Mcknight MD PATIENT NAME: Kari Allan DATE: October 29, 2018 TIME: 12:15 PM PAGER/CONTACT#: see karime Peace RN, RN 10/30/2018 6:33 AM Signed Nursing Progress Note Patient Name: Kari Allan Patient Location: [id number][facility] [id number] Daily Note: 1900 - Assumed care of patient. Received report on patient from previous staff. Patient visible in the day area at the start of shift. Patient is disheveled, wearing hospital gowns and pants. Patient is DNRCC. Patient denies suicidal and homicidal ideations and auditory and visual hallucinations. Patient's affect is flat and mood irritable. Patient is not social with peers or staff. Patient keeps to himself while in the day area. Patient experiences memory lapses during the shift as evidenced by patient not remembering drinking broth for snack, not remembering receiving prn Ativan at the start of shift, not remembering he is on a clear liquid diet (requesting to eat a sandwich), not remembering his room. Patient was observed to be loud and demanding at times, however, he is redirectable with this RN. Patient is able to make his needs known. Patient's behavior was appropriate during this shift. Will continue to monitor. 1951 - Patient was loud and demanding a shot. Patient's HR registered 125. Patient was given prn Ativan 2 mg (IM), results pending. 2051 - Patient was observed less demanding and loud. Ativan resulted with positive effects. Will continue to monitor. 2114 - Patient was compliant with his HS medications and VS. Medications were administered via PEG tube without issue. Medication given with 30 cc water. PEG tube patent, flushes easily, no residual observed. Patient tolerated medications well. 2214 - Patient was observed sleeping in his room, breathing even and unlabored. Will continue to monitor. Patient's behavior has been in control this shift. Safety measures and patient checks per unit protocol, will continue to monitor. 2300 - Observed patient sleeping in his room. Safety measures and patient checks per unit protocol, will continue to monitor 0400 - Patient out of his room requesting help after urinating in bed. This RN assisted him with charissa-care, placed him in adult briefs, then assisted him change into new hospital gowns and pants. Patient's beddings were changed as well. Patient went back to sleep afterwards. 0600 - Patient tolerated Protonix granules with 10 mL apple juice through his PEG tube. PEG tube patent, flushes easily, no residual observed. 0630 - Patient slept for approximately 7 hours. Patient was not in distress, voiced no complaints, and his behavior has been in control throughout the shift. No PRNs were given this shift. This note was completed by: BEN Perez, BEN, RN 10/30/2018 12:52 AM Signed Nursing Progress Note Patient Name: Kari Allan [id number][id number] Daily Note: 1951: Patient out in day area yelling and swearing. When RN redirected patient to keep his voice down he kept saying, I need a shot! I need a shot! Prn IM ativan administered at this time with good results. This note was completed by: BEN De Souza, BEN, RN 10/30/2018 4:39 PM Addendum Nursing Progress Note Patient Name: Kari Allan Patient [facility] [id number][id number] Daily Note: Patient presents disheveled in hospital attire. Irritable and resistive, he is able to accept direction and use bathroom before leaving room for breakfast. He has remained continent this shift. Targeted toileting scheduled maintained per patient tolerance. Good appetite exhibited at breakfast. Patient requires set up and he eats independently. Pleasant and cooperative with routine care. Patient is medication compliant. Meds administered through peg tube, peg remains patent,flushes easily. 60 cc fluid flushed before during and after medication administration. Tube insertion site is clean, undressed. No s/s of infection. Patient was upright and seated during breakfast, remained upright for 30 minutes after meal and medication administration. Patient reported feeling tired, directed to bed for nap. Observed sleeping quietly. Will continue to monitor frequently per unit protocol. 1415: Patient out in day area, observed disrobing. Upon redirection patient became loud and pressured, What the fuck are YOU going to do about it? He began making inappropriate comments to staff You have nice titties several times to young staff member. Redirected several times. Patient escorted to his room. HR elevated. Medicated with Ativan 2 mg IM at 14:20 for anxiety as manifested in elevated vital signs and impulsive and resistive behaviors. Upon further assessment, patient reports pain at his peg tube site, denies nausea. Tylenol 650 mg given via peg tube, Bacitracin oint applied to peg site after cleansing. Patient reports some relief. Patient reports feeling hungry. Appropriate items offered to patient. He ate well. Will continue to monitor. 1630: Patient took remote control for common area tv. When asked if he was giving it to staff to keep safe, he replied No, I'm going to break it. Reasoned with patient, if broken, we have no tv. So we have no tv then patient replied. Remote gently taken from patient by staff member. Fuck you all and the horse you rode in on. Patient states he feels angry because of blacks and whites. Then stated I hate whites. Then I hate [place] whites. They think they know how it goes. I'll show them how it goes. It goes to the devil. I want to become contuges. Patient states contuges means going out to the day area and stinging everyone you can. Pressured speech with angry affect. Medicated with Geodon 20 mg IM for agitation, verbally threatening to break an object and yelling and cursing, making racially charged statements as well as verbal threats of violence. Will continue to monitor closely for effectiveness of PRN medication. This note was completed by: Gerson Hickey RN Previous Version Anson Mcknight MD 10/30/2018 11:41 AM Signed PROGRESS NOTE BEHAVIORAL HEALTH SERVICE DATE: 10/30/2018 SERVICE TIME: 11:39 AM The Interdisciplinary team met and reviewed treatment goals and discharge planning. Subjective Per nursing, pt requested 'a shot', given PRN Ativan IM. Pt slept most of the night. Pt seen in his room, resting comfortably. Irritable, minimal responses. Did eat breakfast, no concerns at this time. Objective PHYSICAL EXAM: BP 95/72 Pulse 114 Temp 36.8 ?C (98.2 ?F) (Oral) Resp 12 Ht 177.8 cm (5' 10) Wt 90.7 kg (200 lb) SpO2 96% BMI 28.70 kg/m? MENTAL STATUS EXAMINATION: Appearance: Disheveled, unkempt, appears much older than his stated age and In hospital gown Behavior: Disorganized Orientation: Person Speech/Language: Garbled, Rambling and Underproductive Mood/Affect: Having Trouble Concentrating Thought Form: concrete, disorganized Thought Content: denies AVH Suicidal Ideations: No suicidal ideation, intent or plan. Homicidal Ideations: No homicidal ideation, intent or plan. Insight: Insight is absent Judgment: Grossly impaired Memory/Cognition: Unable to Assess Psychomotor: Psychomotor activity was normal NEW PROBLEMS ON UNIT SINCE LAST ENCOUNTER: PRN for anxiety Current Facility-Administered Medications Medication Dose Route Frequency - nicotine polacrilex 2 mg gum (NICORETTE) 2 mg ORAL q 2 H PRN - LORazepam 2 mg (ATIVAN) 2 mg ORAL q 4 H PRN Or - LORazepam 2 mg injection (ATIVAN) 2 mg INTRAMUSCULAR q 4 H PRN - ziprasidone 20 mg injection (GEODON) 20 mg INTRAMUSCULAR q 4 H PRN - acetaminophen 650 mg CUP (TYLENOL) 650 mg ORAL/FEEDING TUBE q 4 H PRN - bacitracin 500 unit/gram 1 application topical ointment 1 application TOPICAL PRN - escitalopram oxalate 10 mg tab(s) (LEXAPRO) 10 mg PEG DAILY - levETIRAcetam 750 mg CUP (KEPPRA) 750 mg ORAL/FEEDING TUBE BID - magnesium hydroxide 400 mg/5 mL 30 mL (MOM) 30 mL PEG DAILY PRN - melatonin 9 mg tab(s) 9 mg PEG AT BEDTIME - QUEtiapine 200 mg tab(s) (SEROquel) 200 mg PEG AT BEDTIME - QUEtiapine 50 mg tablet (SEROquel) 50 mg ORAL/FEEDING TUBE BID - thiamine 100 mg tab(s) (VITAMIN B1) 100 mg PEG DAILY - pantoprazole 40 mg granules for suspension (PROTONIX) 40 mg ORAL DAILY (6 AM) - ondansetron 4 mg tab(s) (ZOFRAN) 4 mg PEG q 6 H PRN - dextromethorphan 20 mg - quiNIDine 10 mg capsule (NUEDEXTA) 1 capsule ORAL DAILY - fludrocortisone 0.1 mg tab(s) (FLORINEF) 0.1 mg ORAL DAILY - b complex, c, folic acid 1 mg renal vitamins 1 capsule (NEPHROCAPS) 1 capsule ORAL DAILY - valproic acid 125 mg CUP (DEPAKENE) 125 mg ORAL QID DATA: Diagnostic tests reviewed for today's visit: Most recent labs Assessment/Plan DIAGNOSIS: 1. PRIMARY: Dementia with behavioral disturbance 2. Substance-Related Disorder Alcohol Dependence and Cocaine Dependence 3. Hx of Anoxic Brain Injury ? GAF: -20- Some danger of hurting self or others ? INFORMED CONSENT: Unable to Participate ? RISK ASSESSMENT: Suicide: Low Homicide: Low Deliberate Self-Harm: Low Aggression: Moderate Imminent Physical Self Impairment: Low ? INTERVENTION: Biological: Seroquel 50 mg BID, Lexapro 10 mg daily, swtich Depakote Sprinkles 125 mg QID to depakene 125 mg QID, Nuedexta 20/10 mg capsule daily, and Melatonin 9 mg qhs Psychological: milieu Social: avoid isolation DISCHARGE PLANNING: To be determined SIGNATURE: Anson Mcknight MD PATIENT NAME: Kari Allan DATE: October 30, 2018 TIME: 11:39 AM PAGER/CONTACT#: see directory Sr. Radha Levine MEKeegan, ME 10/30/2018 3:49 PM Signed PROGRESS NOTE BEHAVIORAL HEALTH Topic of Note: Three Day Note SERVICE DATE: 10/30/2018 SERVICE TIME: 3;24pm Patient has attended only a small amount of time in one structured RT group in the past three days. Patient had some difficulty focusing in this art group, but his behavior was in control. After about 10 minutes he decided to leave the group and did not return. His affect remained flat. He was non-verbal in group. Groups will continue to be encouraged in order to promote healthy coping and social skills. SIGNATURE: KIMMIE Kaye PATIENT NAME: Kari Allan DATE: October 30, 2018 TIME: 3:42 PM PAGER/CONTACT #: Aiden Buchanan RN, RN 10/31/2018 6:26 AM Addendum Nursing Progress Note Patient Name: Kari Allan Patient Location: [id number]/[facility]-015* Daily Note: Assumed care at 1930. At start of shift patient remained in bed asleep. Patient wad compliant with passing medications via peg tube. No residual noted and peg flushed without resistance. Upon assessment patient is disheveled in appearance, alert to person only, and labile in mood. Behavior has remained in control. Patient remains on liquid diet and liquid foods provided for patient. Patient then helped to bathroom where he remained continent of urine. Attempted to help patient change his pants due to them having old food stains on them but patient became irritable and refused. Will continue to monitor. Q 15 minute checks performed. 0417: Patient complaining of his stomach hurting. Abdomen slightly firm when palpating. PRN zofran and MOM administered per order. No other complaints at this time. Will continue to monitor. Q 15 minute checks performed. 0500: Patient continually coming out to the day area and talking very loudly, labile in mood. Patient in need of frequent redirection. 0546: Patient out in day area without any pants yelling that he needs new clothes. Patient helped into new brief and pair of pants. Patient was asked if he wanted medication to help him relax and he agreed. PRN IM ativan administered at this time. 0620: Patient intermittently visible in day area. Patient encouraged to stay in bed for a while due to recently receiving ativan and being a high fall risk. Patient no longer complaining of abdominal discomfort at this time. Behavior in control at this time. Q 15 minute checks performed. This note was completed by: Aiden Buchanan RN Previous Version Beatriz Bourne PA-C 10/31/2018 11:33 AM Signed PROGRESS NOTE BEHAVIORAL HEALTH SERVICE DATE: 10/31/2018 SERVICE TIME: 11:14 AM Subjective not too good- right here it hurts(points to mid-abdomen (peg tube intact) Objective PHYSICAL EXAM: BP 110/65 Pulse 115 Temp 36.8 ?C (98.2 ?F) (Oral) Resp 12 Ht 177.8 cm (5' 10) Wt 90.7 kg (200 lb) SpO2 96% BMI 28.70 kg/m? MENTAL STATUS EXAMINATION: Appearance: Casually dressed and Disheveled Behavior: Disorganized; confused Orientation: Person (ate chicken, salad - don't feel good: Kari is on PEG tube feedings) Speech/Language: choppy speech; focused on abdominal discomfort Mood/Affect: Anxious and Distressed Thought Form: Perseveration Thought Content: Eyes tend to move repeatedly left to right at intervals: denies hallucination; can be paranoid at times and becomes agitated with peer group or staff Suicidal Ideations: No suicidal ideation, intent or plan. Homicidal Ideations: No homicidal ideation, intent or plan. Insight: Insight is absent Judgment: Grossly impaired Memory/Cognition: Moderately Impaired Psychomotor: Agitated NEW PROBLEMS ON UNIT SINCE LAST ENCOUNTER: None Current Facility-Administered Medications Medication Dose Route Frequency - nicotine polacrilex 2 mg gum (NICORETTE) 2 mg ORAL q 2 H PRN - LORazepam 2 mg (ATIVAN) 2 mg ORAL q 4 H PRN Or - LORazepam 2 mg injection (ATIVAN) 2 mg INTRAMUSCULAR q 4 H PRN - ziprasidone 20 mg injection (GEODON) 20 mg INTRAMUSCULAR q 4 H PRN - acetaminophen 650 mg CUP (TYLENOL) 650 mg ORAL/FEEDING TUBE q 4 H PRN - bacitracin 500 unit/gram 1 application topical ointment 1 application TOPICAL PRN - escitalopram oxalate 10 mg tab(s) (LEXAPRO) 10 mg PEG DAILY - levETIRAcetam 750 mg CUP (KEPPRA) 750 mg ORAL/FEEDING TUBE BID - magnesium hydroxide 400 mg/5 mL 30 mL (MOM) 30 mL PEG DAILY PRN - melatonin 9 mg tab(s) 9 mg PEG AT BEDTIME - QUEtiapine 200 mg tab(s) (SEROquel) 200 mg PEG AT BEDTIME - QUEtiapine 50 mg tablet (SEROquel) 50 mg ORAL/FEEDING TUBE BID - thiamine 100 mg tab(s) (VITAMIN B1) 100 mg PEG DAILY - pantoprazole 40 mg granules for suspension (PROTONIX) 40 mg ORAL DAILY (6 AM) - ondansetron 4 mg tab(s) (ZOFRAN) 4 mg PEG q 6 H PRN - dextromethorphan 20 mg - quiNIDine 10 mg capsule (NUEDEXTA) 1 capsule ORAL DAILY - fludrocortisone 0.1 mg tab(s) (FLORINEF) 0.1 mg ORAL DAILY - b complex, c, folic acid 1 mg renal vitamins 1 capsule (NEPHROCAPS) 1 capsule ORAL DAILY - valproic acid 125 mg CUP (DEPAKENE) 125 mg ORAL QID DATA: Diagnostic tests reviewed for today's visit: Results for KARI ALLAN ( ) as of 10/31/2018 11:21 Ref. 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 Discussed the risks, benefits and alternatives to the medication(s) recommended. Consent was given. INTERVENTION: Biological: Seroquel 50 mg BID Lexapro 10 mg daily Depakote Sprinkles 125 mg QID to depakene 125 mg QID Nuedexta 20/10 mg capsule daily Melatonin 9 mg at bedtime Psychological: Encourage patient participation in unit activities: supportive therapy, group therapy and RT offered Social work for collateral from family, discharge planning and outpatient management Wound care management for peg tube site. DISCHARGE PLANNING: when stable SIGNATURE: COSMO Parmar PA-C PATIENT NAME: Kari Allan DATE: October 31, 2018 TIME: 11:14 AM Previous Version MIRNA Steele 10/31/2018 1:35 PM Signed BEHAVIORAL HEALTH SOCIAL WORK PROGRESS NOTE SERVICE DATE: 10/31/2018 SERVICE TIME: 13:34 SW met with patient on unit. Patient displays poor insight and with impaired cognition. Patient has been seen on unit speaking with select peers. No disruptive behaviors noted today. Patient is forgetful and believes that he will return home alone. At discharge patient will return to [facility]. Patient;s guardian is his sister Clari. sent updated notes to [facility] via [facility] SIGNATURE: DANIKA Steele PATIENT NAME: Kari Allan DATE: October 31, 2018 TIME: 1:18 PM Leeann Huitron RN, RN 10/31/2018 5:32 PM Addendum Nursing Progress Note Topic of Note: Daily Note Kari Allan [id number] Kari has been 100 % med compliant except the Nepro Cap which cannot be crushed or put into the PEG tube per the pharmacist. Hospital Orderly, Dr. Goodwin informed and gave instructions that pharm should make an acceptable substitution. At 11:36 am Kari did call a female peer a retard without any provocation. HE was given Ativan 2 mg IM which did seem to help.He had been given MOM on third shift for c/o constipation and when asked by this nurse and the charge nurse he reported that it had been effective. This note was completed by: Leeann Huitron RN At 16:13 Kari began to yell at staff and peers using profanity. He threatened a male MHW and would not sty in his room so he was given Geodon 20 mg IM and Ativan 2 mg IM and was then able to stay in the day area and eat dinner. After dinner he did have a small emesis but did not want anything for it. His 17:00 PEG tube meds were given and then he fell asleep in his bed. Previous Version Alma Rosa Hanna RN, RN 11/01/2018 6:47 AM Signed Nursing Progress Note Patient Name: Kari Allan Patient Location: [id number][facility] [id number] Assumed care. Patient was visible in the day this shift, seclusive to self and non social. His behavior remained appropriate and he needed no redirection. He was compliant with medications given through PEG tube which is patent. No PRN's given. No aggression verbally or physically observed. 0600- Pt. slept through the night, no inappropriate behaviors noted, no somatic complaints. Denies suicidal and homicidal ideation, contracts for safety, safety maintained, will continue to monitor for change in status. Slept 8 hours. This note was completed by: BEN Hoff DO 11/01/2018 8:56 AM Signed PROGRESS NOTE BEHAVIORAL HEALTH SERVICE DATE: 11/01/2018 SERVICE TIME: 11:14 AM Subjective not too good- again today. Resting in bed. Monotone. Soft spoken. Denies suicidal ideations or homicidal ideations. Denies auditory hallucinations or visual hallucinations. Poor insight. Many prns. Will inc nuedexta to bid 11/01/2018 Objective PHYSICAL EXAM: BP 140/78 Pulse 90 Temp 36.8 ?C (98.2 ?F) (Oral) Resp 18 Ht 177.8 cm (5' 10) Wt 90.7 kg (200 lb) SpO2 96% BMI 28.70 kg/m? MENTAL STATUS EXAMINATION: Appearance: Casually dressed and Disheveled Behavior: Disorganized; confused Orientation: Person Speech/Language: choppy speech; focused on abdominal discomfort Mood/Affect: Anxious and Distressed Thought Form: Perseveration Thought Content: Eyes tend to move repeatedly left to right at intervals: denies hallucination; can be paranoid at times and becomes agitated with peer group or staff Suicidal Ideations: No suicidal ideation, intent or plan. Homicidal Ideations: No homicidal ideation, intent or plan. Insight: Insight is absent Judgment: Grossly impaired Memory/Cognition: Moderately Impaired Psychomotor: Agitated NEW PROBLEMS ON UNIT SINCE LAST ENCOUNTER: None Current Facility-Administered Medications Medication Dose Route Frequency - nicotine polacrilex 2 mg gum (NICORETTE) 2 mg ORAL q 2 H PRN - LORazepam 2 mg (ATIVAN) 2 mg ORAL q 4 H PRN Or - LORazepam 2 mg injection (ATIVAN) 2 mg INTRAMUSCULAR q 4 H PRN - ziprasidone 20 mg injection (GEODON) 20 mg INTRAMUSCULAR q 4 H PRN - acetaminophen 650 mg CUP (TYLENOL) 650 mg ORAL/FEEDING TUBE q 4 H PRN - bacitracin 500 unit/gram 1 application topical ointment 1 application TOPICAL PRN - escitalopram oxalate 10 mg tab(s) (LEXAPRO) 10 mg PEG DAILY - levETIRAcetam 750 mg CUP (KEPPRA) 750 mg ORAL/FEEDING TUBE BID - magnesium hydroxide 400 mg/5 mL 30 mL (MOM) 30 mL PEG DAILY PRN - melatonin 9 mg tab(s) 9 mg PEG AT BEDTIME - QUEtiapine 200 mg tab(s) (SEROquel) 200 mg PEG AT BEDTIME - QUEtiapine 50 mg tablet (SEROquel) 50 mg ORAL/FEEDING TUBE BID - thiamine 100 mg tab(s) (VITAMIN B1) 100 mg PEG DAILY - pantoprazole 40 mg granules for suspension (PROTONIX) 40 mg ORAL DAILY (6 AM) - ondansetron 4 mg tab(s) (ZOFRAN) 4 mg PEG q 6 H PRN - fludrocortisone 0.1 mg tab(s) (FLORINEF) 0.1 mg ORAL DAILY - valproic acid 125 mg CUP (DEPAKENE) 125 mg ORAL QID - folic acid 1 mg tab(s) 1 mg PEG DAILY - pyridoxine (vitamin B6) 25 mg tab(s) (VITAMIN B6) 25 mg PEG DAILY - cyanocobalamin 100 mcg tab(s) (VITAMIN B-12) 100 mcg PEG DAILY - dextromethorphan 20 mg - quiNIDine 10 mg capsule (NUEDEXTA) 1 capsule ORAL q 12 H DATA: Diagnostic tests reviewed for today's visit: Results for KARI ALLAN ( ) as of 10/31/2018 11:21 Ref. 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 Discussed the risks, benefits and alternatives to the medication(s) recommended. Consent was given. INTERVENTION: Biological: Seroquel 50 mg BID Lexapro 10 mg daily Depakote Sprinkles 125 mg QID to depakene 125 mg QID Nuedexta 20/10 mg capsule > bid Melatonin 9 mg at bedtime Psychological: Encourage patient participation in unit activities: supportive therapy, group therapy and RT offered Social work for collateral from family, discharge planning and outpatient management Wound care management for peg tube site. DISCHARGE PLANNING: when stable SIGNATURE: Ajith Palomares DO PATIENT NAME: Kari Allan DATE: November 01, 2018 TIME: 11:14 AM Horacio Blake LPN, LPN 11/01/2018 1:26 PM Signed Nursing Progress Note Patient Name: Kari Allan Patient Location: [id number]* Daily Note:Pt has been up on intervals. Observed sitting in the day area and watching television and laying in his bed with his eyes closed. He is alert to self. General appearance is disheveled in hospital attire. Mood/affect is labile. No interaction with peers and social with staff. Appetite is adequate. He ate lunch. No groups attended. No acute distress or behavioral issues observed at this time. He voiced no delusions. Denies any audio/visual hallucinations and denies any suicidal/homicial ideation at this time. Will continue to monitor pt q 15 minutes on rounds for safety. This note was completed by: HUGO Guzmán, RN, RN 11/01/2018 10:30 PM Signed Nursing Progress: Topic: RESTRAINT VIOLENT PATIENT NAME: Kari Allan PATIENT LOCATION: [id number]* The patient demonstrates a need for physical hold restraint as evidenced by the following behaviors pushing computer on wheels, posturing, threatening staff, cursing at staff and patients, non-compliant with redirection which pose an imminent danger to self or others. The following interventions were attempted but were not effective in protecting the patient's safety: Attempts to distract pt, redirection to his room. Next, a comprehensive assessment was performed and warranted placing the patient in a physical hold restraint to take pt back to the seclusion room, the least restrictive restraint needed to protect the patient's safety. Ongoing safety assessments and evaluation for earliest removal of restraints will be performed. DATE: November 01, 2018 TIME: 9:00 PM BEN Fernandes RN, RN 11/01/2018 10:29 PM Signed Behavioral Restraints Summary and Debriefing Note PATIENT NAME: Kair Allan Date in Restraints 11/01/2018 Time in Restraints 2039 Staff Member(s) present: Ralph Yanez RN, VALERIANO Bueno, Mable West RN, and security. Violent Restraints-Clinical Justification: Documentation required with Every Initial and Continued Order. The patient is demonstrating violent or self-destructive behavior that jeopardizes the immediate safety of the patient/others. Restraint Contraindications Considered: None Describe incident and rationale for type of intervention selected: pushing computer on wheels, posturing, threatening staff, cursing at staff and patients, non-compliant with redirection. Patient was able to identify precipitants and suggest alternatives for next time situation occurs. Patient was not injured/harmed by experience. Response to debriefing and additional details: Pt refusing to engage with this author about debriefing. Suggestions to prevent further episodes: Pt will comply with instruction from staff and security, pt will not threaten staff or other patients, and pt will not push objects to inflict harm on staff or other patients. Time out of Restraints 2040 Date of debriefin11/01/2018 Time of debriefin Ralph Yanez RN 11/01/2018 Ralph Yanez RN, RN 11/02/2018 6:11 AM Addendum Nursing Progress Note Patient Name: Kari Allan Patient Location: [id number][facility] Daily Note: 2040 Received report from previous shift. Pt seen out in the day area. Pt was sitting and grabbed some chips off the snack cart. Pt was told he is not allowed to have chips since he is on a liquid diet only. The chips were taken away from the pt by this author. The pt then followed this author to another patient's room and pushed the computer and began to threaten this author and other staff. Pt was would not comply with instruction from staff or security and was placed in a physical in order to be taken to the seclusion room. The seclusion room was unlocked and pt came out after about 10 minutes back there. Pt was sitting in the day area when he started to become agitated again and began to curse at staff and other patients. Pt was redirectable to his room at this time and was instructed that he would need to stay in his room. Pt was refusing and threatening this author. This author asked the pt if he was ready to take his scheduled meds and the pt refused his scheduled meds. The pt instead received PRN ativan 2 mg IM and 20 mg geodon IM at 2121 due to aggressive behavior. Fall precautions maintained. Pt safety checks done per unit protocol. Will continue to monitor. 0340 Pt woke up being loud. Pt asked to be quiet due to other patients sleeping. Pt being dismissive. Pt was told he would need to stay in his room for the remainder of the night due to aggressive behavior displayed. Pt said he didn't have to listen to what staff says. Pt given 2 mg ativan IM due to behavior and non-compliance with instruction at 0348. 0600 Pt seen sleeping on and off in his room all night. Pt would come out of his room and be irritable and non-compliant with instruction. Pt refused morning scheduled med and to have his wrist band scanned. Pt slept for 6.5 hours. This note was completed by: Ralph Yanez RN Previous Version Ajith Palomares DO 11/02/2018 11:15 AM Signed PROGRESS NOTE BEHAVIORAL HEALTH SERVICE DATE: 11/02/2018 SERVICE TIME: 11:14 AM Subjective im ok calm and pleasant this am. Resting in bed. Monotone. Soft spoken. Denies suicidal ideations or homicidal ideations. Denies auditory hallucinations or visual hallucinations. Poor insight. Many prns. Will inc nuedexta to bid 11/01/2018 - missed dose yesterday. Objective PHYSICAL EXAM: BP 108/82 Pulse 106 Temp 36.9 ?C (98.4 ?F) (Oral) Resp 18 Ht 177.8 cm (5' 10) Wt 90.7 kg (200 lb) SpO2 96% BMI 28.70 kg/m? MENTAL STATUS EXAMINATION: Appearance: Casually dressed and Disheveled Behavior: Disorganized; confused Orientation: Person Speech/Language: choppy speech; focused on abdominal discomfort Mood/Affect: Anxious and Distressed Thought Form: Perseveration Thought Content: Eyes tend to move repeatedly left to right at intervals: denies hallucination; can be paranoid at times and becomes agitated with peer group or staff Suicidal Ideations: No suicidal ideation, intent or plan. Homicidal Ideations: No homicidal ideation, intent or plan. Insight: Insight is absent Judgment: Grossly impaired Memory/Cognition: Moderately Impaired Psychomotor: Agitated NEW PROBLEMS ON UNIT SINCE LAST ENCOUNTER: None Current Facility-Administered Medications Medication Dose Route Frequency - nicotine polacrilex 2 mg gum (NICORETTE) 2 mg ORAL q 2 H PRN - LORazepam 2 mg (ATIVAN) 2 mg ORAL q 4 H PRN Or - LORazepam 2 mg injection (ATIVAN) 2 mg INTRAMUSCULAR q 4 H PRN - ziprasidone 20 mg injection (GEODON) 20 mg INTRAMUSCULAR q 4 H PRN - acetaminophen 650 mg CUP (TYLENOL) 650 mg ORAL/FEEDING TUBE q 4 H PRN - bacitracin 500 unit/gram 1 application topical ointment 1 application TOPICAL PRN - escitalopram oxalate 10 mg tab(s) (LEXAPRO) 10 mg PEG DAILY - levETIRAcetam 750 mg CUP (KEPPRA) 750 mg ORAL/FEEDING TUBE BID - magnesium hydroxide 400 mg/5 mL 30 mL (MOM) 30 mL PEG DAILY PRN - melatonin 9 mg tab(s) 9 mg PEG AT BEDTIME - QUEtiapine 200 mg tab(s) (SEROquel) 200 mg PEG AT BEDTIME - QUEtiapine 50 mg tablet (SEROquel) 50 mg ORAL/FEEDING TUBE BID - thiamine 100 mg tab(s) (VITAMIN B1) 100 mg PEG DAILY - pantoprazole 40 mg granules for suspension (PROTONIX) 40 mg ORAL DAILY (6 AM) - ondansetron 4 mg tab(s) (ZOFRAN) 4 mg PEG q 6 H PRN - fludrocortisone 0.1 mg tab(s) (FLORINEF) 0.1 mg ORAL DAILY - valproic acid 125 mg CUP (DEPAKENE) 125 mg ORAL QID - folic acid 1 mg tab(s) 1 mg PEG DAILY - pyridoxine (vitamin B6) 25 mg tab(s) (VITAMIN B6) 25 mg PEG DAILY - cyanocobalamin 100 mcg tab(s) (VITAMIN B-12) 100 mcg PEG DAILY - dextromethorphan 20 mg - quiNIDine 10 mg capsule (NUEDEXTA) 1 capsule ORAL q 12 H DATA: Diagnostic tests reviewed for today's visit: Results for KARI ALLAN ( ) as of 10/31/2018 11:21 Ref. 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 Discussed the risks, benefits and alternatives to the medication(s) recommended. Consent was given. INTERVENTION: Biological: Seroquel 50 mg BID Lexapro 10 mg daily Depakote Sprinkles 125 mg QID to depakene 125 mg QID Nuedexta 20/10 mg capsule > bid Melatonin 9 mg at bedtime Psychological: Encourage patient participation in unit activities: supportive therapy, group therapy and RT offered Social work for collateral from family, discharge planning and outpatient management Wound care management for peg tube site. DISCHARGE PLANNING: when stable return to Shelter Facility SIGNATURE: Ajith Palomares DO PATIENT NAME: Kari Allan DATE: November 02, 2018 TIME: 11:14 AM DANIKA Suero 11/02/2018 1:23 PM Signed BEHAVIORAL HEALTH SOCIAL WORK PROGRESS NOTE SERVICE DATE: 11/02/2018 SERVICE TIME: 12:23 PM Sw met with the pt today while rounding with the doctor. The pt is having memory issues. The pt had a poor evening and was given a PRN. He was oriented that he has been living at [facility]. The pt did not object to returning there upon d/c. The team would like to see the pt receiving fewer PRN's prior to him being d/c. Karo Sanford (sister/guardian/POA) - [phone] was called and sw updated her to the pt's condition and d/c plans. SIGNATURE: DANIKA Suero PATIENT NAME: Kari Allan DATE: November 02, 2018 TIME: 12:23 PM Judah Beckett, RN, RN 11/02/2018 2:21 PM Signed Nursing Progress Note Patient Name: Kari Allan Patient Location: [id number]/[place] [id number]* Daily Note: 1238 Report received from previous shift, pt visible on unit at times, flat affect, disheveled, slurred speech, oriented to himself only, needs complete assist to get dressed, toileted q 2 hours and remained continent, preoccupied and internally stimulated, poor insight. Pt ate meals with some direction of staff, medication compliant via PEG Tube, denies hallucinations, denies suicidal or homicidal ideation, no somatic complaints noted, assault precautions maintained, q 15 minute checks for safety and protection, will continue to monitor for any change in status. This note was completed by: Judah Beckett, RN Sr. JOSEPH Villeda, LAURA 11/02/2018 3:44 PM Addendum PROGRESS NOTE BEHAVIORAL HEALTH Topic of Note: Three Day Note SERVICE DATE: 11/02/2018 SERVICE TIME: 3:30pm Patient has attended only two structured RT groups in the past three days. In the one group attended three days ago, he was a very passive participant. In today LLOYD's group this afternoon, he was much more active and alert. His comments were appropriate and when asking questions, he was able to formulate clear, organized statements. He remains disheveled. He was able to tolerate well the entire one hour session. Groups will continue to be encouraged in order to promote healthy coping and social skills. SIGNATURE: Sr. Radha Levine [facility] PATIENT NAME: Kari Allan DATE: November 02, 2018 TIME: 3:30 PM PAGER/CONTACT #: Previous Version Horacio Blake LPN, LPN 11/02/2018 5:45 PM Signed Nursing Progress Note Patient Name: Kari Allan Patient Location: [id number]/[place] [id number] Daily Note:Prn 20 mg geodon and prn 2 mg ativan given IM at 1619 for agitation and anxiety. He went to the entrance and attempted to escape. He became verbally abusive. Difficult to redirect. This note was completed by: HUGO Guzmán LPN, LPN 11/02/2018 9:52 PM Addendum Nursing Progress Note Patient Name: Kari Allan Patient Location: [id number]/[place] [id number] Daily Note: Received report from previous shift and assumed care. Patient is alert and oriented to person and place. He is disheveled and unkempt dressed in hospital garb. His affect is flat and his speech is garbled and slurred. He was pleasant with me and was agreeable to taking his bedtime medication via his peg tube. He requested and was given zofran for complaints of nausea after attempting to eat a sandwich and then vomiting it up. His tube was flushed with 30 cc of water before and after receiving his medication. He had no residual before or after. 2150 - Presently in the dining area watching television. This note was completed by: Nasreen Castañeda LPN Previous Version Ajith Palomares, 11/03/2018 9:35 AM Addendum PROGRESS NOTE BEHAVIORAL HEALTH SERVICE DATE: 11/02/2018 SERVICE TIME: 11:14 AM Reviewed admitting history- Kari Allan is a 48 year old male with hx of anoxic brain injury, anoxic encephalopathy, pancreatitis, seizures, esphageal stricture, COPD, and DVT who was?brought in [facility]for aggressive behaviors Subjective Seen on rounds. Initially out in day area, then in his room. Resting in bed now, appears groggy/sedated. Mumbled speech. Many recent prns. Per nursing- Daily Note:Prn 20 mg geodon and prn 2 mg ativan given IM at 1619 for agitation and anxiety. He went to the entrance and attempted to escape. He became verbally abusive. Difficult to redirect. Will continue with inc nuedexta to bid 11/01/2018 - Inc seroquel 11/03/2018 and check Depakote level in am. Objective PHYSICAL EXAM: BP 108/82 Pulse 106 Temp 36.9 ?C (98.4 ?F) (Oral) Resp 18 Ht 177.8 cm (5' 10) Wt 90.7 kg (200 lb) SpO2 96% BMI 28.70 kg/m? MENTAL STATUS EXAMINATION: Appearance: Casually dressed and Disheveled Behavior: Disorganized; confused at times. Orientation: Person Speech/Language: soft, mumbled, difficult to understand at times Mood/Affect: Anxious and Distressed Thought Form: Perseveration Thought Content: Vague today. Suicidal Ideations: No suicidal ideation, intent or plan. Homicidal Ideations: No homicidal ideation, intent or plan. Insight: Insight is absent Judgment: Grossly impaired Memory/Cognition: Moderately Impaired Psychomotor: slowed NEW PROBLEMS ON UNIT SINCE LAST ENCOUNTER: None Current Facility-Administered Medications Medication Dose Route Frequency - nicotine polacrilex 2 mg gum (NICORETTE) 2 mg ORAL q 2 H PRN - LORazepam 2 mg (ATIVAN) 2 mg ORAL q 4 H PRN Or - LORazepam 2 mg injection (ATIVAN) 2 mg INTRAMUSCULAR q 4 H PRN - ziprasidone 20 mg injection (GEODON) 20 mg INTRAMUSCULAR q 4 H PRN - acetaminophen 650 mg CUP (TYLENOL) 650 mg ORAL/FEEDING TUBE q 4 H PRN - bacitracin 500 unit/gram 1 application topical ointment 1 application TOPICAL PRN - escitalopram oxalate 10 mg tab(s) (LEXAPRO) 10 mg PEG DAILY - levETIRAcetam 750 mg CUP (KEPPRA) 750 mg ORAL/FEEDING TUBE BID - magnesium hydroxide 400 mg/5 mL 30 mL (MOM) 30 mL PEG DAILY PRN - melatonin 9 mg tab(s) 9 mg PEG AT BEDTIME - QUEtiapine 200 mg tab(s) (SEROquel) 200 mg PEG AT BEDTIME - thiamine 100 mg tab(s) (VITAMIN B1) 100 mg PEG DAILY - pantoprazole 40 mg granules for suspension (PROTONIX) 40 mg ORAL DAILY (6 AM) - ondansetron 4 mg tab(s) (ZOFRAN) 4 mg PEG q 6 H PRN - fludrocortisone 0.1 mg tab(s) (FLORINEF) 0.1 mg ORAL DAILY - valproic acid 125 mg CUP (DEPAKENE) 125 mg ORAL QID - folic acid 1 mg tab(s) 1 mg PEG DAILY - pyridoxine (vitamin B6) 25 mg tab(s) (VITAMIN B6) 25 mg PEG DAILY - cyanocobalamin 100 mcg tab(s) (VITAMIN B-12) 100 mcg PEG DAILY - dextromethorphan 20 mg - quiNIDine 10 mg capsule (NUEDEXTA) 1 capsule ORAL q 12 H - QUEtiapine 100 mg tab(s) (SEROquel) 100 mg ORAL/FEEDING TUBE BID DATA: Diagnostic tests reviewed for today's visit: Results for KARI ALLAN ( ) as of 10/31/2018 11:21 Ref. Range 10/28/2018 09:52 Valproic Acid Latest Ref Range: 50 - 100 ug/mL 14.1 (L) Assessment/Plan DIAGNOSIS: PRIMARY: Impulse-Control Disorder Intermittent Explosive Disorder Traumatic Brain Injury with Pseudobulbar Affect Polysubstance Abuse History , Treatment non-compliance Alcohol dep GAF:30-21 Behavior is considerably influenced by delusions or hallucination or serious impairment in communication or judgment RISK ASSESSMENT: Suicide: low Homicide: low Deliberate Self-Harm: low Aggression: moderate-high Imminent Physical Self Impairment: low INFORMED CONSENT: Yes, completed with the patient's guardian.. Discussed the risks, benefits and alternatives to the medication(s) recommended. Consent was given. INTERVENTION: Biological: Seroquel >100 mg BID Lexapro 10 mg daily Depakote Sprinkles 125 mg QID to depakene 125 mg QID Check level 11/04/2018 Nuedexta 20/10 mg capsule > bid Melatonin 9 mg at bedtime Prn atrivan and geodon im Psychological: Encourage patient participation in unit activities: supportive therapy, group therapy and RT offered Social work for collateral from family, discharge planning and outpatient management Wound care management for peg tube site. DISCHARGE PLANNING: when stable return to Shelter Facility SIGNATURE: Ajith Palomares DO PATIENT NAME: Kari Allan DATE: November 03, 2018 TIME: 11:14 AM Previous Version Serge Yost RD 11/03/2018 1:21 PM Signed NUTRITION THERAPY SCREENING NOTE SERVICE DATE: 11/03/2018 SERVICE TIME: 12:45 PM NUTRITION CARE PLAN Patient's weight is stable and nutritional intake is adequate. Patient is not at risk for malnutrition at this time. Intervention: - Continue FL diet - Continue Ensure Enlive TID - Advance diet per NET SOFTWARE ARCHITECT pending MBSS Collaborated with Dr. Cardona and orders written. Discharge Nutrition Recommendations: To be determined Per HPI: 48 yo M admitted for agitation. 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 Hx of respiratory failure secondary to opioid drug overdose, alcohol abuse. ?He has a history of pancreatitis and has a G-tube in place. Pt tolerating FL diet and supplements. NET SOFTWARE ARCHITECT evaluated patient and recommend an MBSS - discussed with Dr. Cardona. OK to order and advance diet pending NET SOFTWARE ARCHITECT recommendations. Discussed with NET SOFTWARE ARCHITECT and RN. Pt is excited for the test and ability to eat - anticipate he will pass and no longer require meds via PEG. Consider PEG removal pending test. Orders Placed This Encounter DIET LIQUID Standing Status: Standing Number of Occurrences: 1 Order Specific Question: Liquid Diet Answer: FULL LIQUID Order Specific Question: FOR RDs ONLY Provider Collaborated With Answer: DAVIS MOREL (LUISA) [[id number]] Supplement 1 Frequency: 1. BREAKFAST; 5. DINNER Supplement 2 Frequency: 3. LUNCH Supplement 1: ENSURE ENLIVE CHOCOLATE Supplement 2: ENSURE ENLIVE VANILLA There are no questions and answers to display. There are no questions and answers to display. Nutritional Intake Prior to Admission: Unable to determine Anthropometrics: Height: 177.8 cm (5' 10) Admission Weight: 90.7 kg (200 lb) Current Weight: 90.7 kg (200 lb) Body mass index is 28.7 kg/m?. overweight Weight has not changed significantly Last Wt 10/27/18 : 90.7 kg (200 lb) 10/26/18 : 90.7 kg (200 lb) 08/31/18 : 83.1 kg (183 lb 3.2 oz) 01/04/18 : 57.6 kg (127 lb) 12/26/17 : 56.7 kg (125 lb) 11/30/17 : 57.6 kg (127 lb) 11/01/17 : 53.5 kg (118 lb) 10/06/17 : 52.8 kg (116 lb 8 oz) 09/28/17 : 50.1 kg (110 lb 7.2 oz) 09/21/17 : 53.8 kg (118 lb 9.6 oz) 08/07/17 : 52.2 kg (115 lb) 08/06/17 : 51.5 kg (113 lb 8.6 oz) 07/13/17 : 53.1 kg (117 lb) 04/23/17 : 53.3 kg (117 lb 9.6 oz) 04/08/17 : 54.3 kg (119 lb 11.4 oz) 04/05/17 : 54.3 kg (119 lb 11.4 oz) 03/16/17 : 56.8 kg (125 lb 3.5 oz) 01/15/17 : 60.7 kg (133 lb 14.4 oz) 09/18/16 : 64.9 kg (143 lb) 09/10/16 : 64.4 kg (142 lb) MNT Billing Type: Re-assess/15 min 2 units SIGNATURE: Serge Yost RD PATIENT NAME: Kari Allan DATE: November 03, 2018 TIME: 1:01 PM PAGER: [phone] Lynn Polk RN, RN 11/03/2018 2:36 PM Signed Nursing Progress Note Patient Name: Kari Allan Patient Location: [id number]/[place]* Daily Note: Patient has been up intermittently on the unit. He has been compliant with his tube feeds and full liquid diet. Continues to make inappropriate statement to younger staff member You got some nice Tits Easily redirected. Around 1430 came up to window stated I want to go home. Increasing agitated, restless and was prn with Ativan 2 mg Im in left deltoid. He is schedule for a Barium Swallow possibly tomorrow. Now, sitting in the hallway self talking to himself. This note was completed by: BEN Castellanos LSW 11/03/2018 3:16 PM Signed BEHAVIORAL HEALTH SOCIAL WORK PROGRESS NOTE SERVICE DATE: 11/03/2018 SERVICE TIME: 3:01 PM Sw observed the pt sitting on the unit making conversation with staff passing him. The pt actions are impulsive. He received a PRN last night due to trying to leave the unit. The team would like to see the pt receiving fewer PRN's prior to him being d/c. Mirna did update Karo Sanford (sister/guardian/POA) - [phone] on 11-02-18. Mirna has been updating the extend care facility, [facility] via [facility]. SIGNATURE: DANIKA Suero PATIENT NAME: Kari Allan DATE: November 03, 2018 TIME: 3:01 PM Meño Morris RN, RN 11/03/2018 5:18 PM Addendum Nursing Progress Note Patient Name: Kari Allan Patient Location: [place]* Daily Note: 1620 - Assumed care of patient at 1530. Patient is intrusive with visitors, loud nonsensical outbursts at times. Requires regular redirection. 1708 - Patient slid off day area chair. Witnessed fall. Patient did not hit head. No injury observed. MHO and NM notified. Guardian notified. This note was completed by: Meño Morris RN Previous Version Nimco Domingo APRN.GEOVANNY, JYOTI.GEOVANNY 11/03/2018 5:27 PM Signed POST FALL ASSESSMENT PATIENT NAME: Kari Allan ASSESSMENT DATE: 11/03/2018 ASSESSMENT TIME: 5:18 PM Subjective Brief description of event: Pt had a witnessed fall while in common area. Per RN, pt was attempting to sit on a chair with wheels. The chair slid out from under him and pt fell to floor onto his bottom. He broke his fall with his hands. He did not hit his head. No LOC with fall. Fall witnessed: Yes How did fall occur: Getting into bed/chair Location of fall: common area Contributing factors: lost balance Medication List: Reviewed Current Facility-Administered Medications: - QUEtiapine 100 mg tab(s) (SEROquel) - dextromethorphan 20 mg - quiNIDine 10 mg capsule (NUEDEXTA) - folic acid 1 mg tab(s) - pyridoxine (vitamin B6) 25 mg tab(s) (VITAMIN B6) - cyanocobalamin 100 mcg tab(s) (VITAMIN B-12) - valproic acid 125 mg CUP (DEPAKENE) - fludrocortisone 0.1 mg tab(s) (FLORINEF) - nicotine polacrilex 2 mg gum (NICORETTE) - LORazepam 2 mg (ATIVAN) OR LORazepam 2 mg injection (ATIVAN) - ziprasidone 20 mg injection (GEODON) - acetaminophen 650 mg CUP (TYLENOL) - bacitracin 500 unit/gram 1 application topical ointment - escitalopram oxalate 10 mg tab(s) (LEXAPRO) - levETIRAcetam 750 mg CUP (KEPPRA) - magnesium hydroxide 400 mg/5 mL 30 mL (MOM) - melatonin 9 mg tab(s) - QUEtiapine 200 mg tab(s) (SEROquel) - thiamine 100 mg tab(s) (VITAMIN B1) - pantoprazole 40 mg granules for suspension (PROTONIX) - ondansetron 4 mg tab(s) (ZOFRAN) Physical Exam BP 108/82 Pulse 106 Temp 36.9 ?C (98.4 ?F) (Oral) Resp 18 Ht 177.8 cm (5' 10) Wt 90.7 kg (200 lb) SpO2 96% BMI 28.70 kg/m? Is the Patient Experiencing Pain: Yes: PAIN CHARACTER: aching Physical Exam Constitutional: He is well-developed, well-nourished, and in no distress. HENT: Head: Normocephalic. Eyes: Pupils are equal, round, and reactive to light. Neck: Normal range of motion. Cardiovascular: Normal heart sounds. Pulmonary/Chest: Effort normal and breath sounds normal. Abdominal: Soft. Musculoskeletal: Normal range of motion. Neurological: He is alert. Skin: Skin is warm and dry. Post-Fall Assessment/Plan Fall Injury: No. Pt endorses pain on bilateral hands. Has full ROM, no bruising on assessment. High Fall Risk Other interventions: Ice to affected area Patient Active Hospital Problem List: Impulse control disorder (10/27/2018) VTE Prophylaxis: Other n/a Family notified by: Nurse SIGNATURE: Nimco Domingo APRN.GEOVANNY PATIENT NAME: Kari Allan DATE: 11/03/2018 TIME: 5:18 PM PAGER #: [phone] Meño Morris, RN, RN 11/03/2018 6:20 PM Signed Post Fall Assessment Kari Allan [id number] Witnessed: Yes How did fall occur: Getting out of bed/chair Location: day area Contributing factors: confused/disoriented Brief factual description: slid off chair (*Document vital signs, neuro checks, blood sugars in the appropriate flow sheet.) Initial Physical Assessment Injury: No Patient hit head: No Immediate actions taken: No Action Name of LIP notified: susan Notify family as appropriate: guardian Post fall interventions: Fall Huddle Conducted and Frequent Observation This note was completed by:Meño Morris, RN Ana Luisa Peace RN, RN 11/04/2018 6:36 AM Signed Nursing Progress Note Patient Name: Kari Allan Patient Location: [id number][id number] Daily Note: 1900 - Assumed care of patient. Received report on patient from previous staff. Patient visible in the day area wandering from seat to seat at the start of shift. Patient's gait is steady. Patient is disheveled, wearing street clothes. Patient denies suicidal and homicidal ideations and auditory and visual hallucinations. Patient's affect is blunted and mood irritable. Patient remains loud, boisterous, and intrusive. He was observed cursing at other peers, but was redirectable by this RN and staff. Patient appears to be preoccupied and irritable, his speech is nonsensical at times. Patient was observed closely for behavior, however, after discussing unit expectations and being redirected, he was able to remain in control of his behavior this shift. 1999 - Patient c/o tummy aching and feeling like I want to throw up. Patient's abdomen was soft upon palpitation. He was given prn Zofran 4 mg (PEG), after which he vomited in the toilet after 10 minutes. Vomit was mucus and some jello, which he ate for evening snack. Encouraged patient to remain in bed while Zofran takes effect. Patient tried to manage, however, was seen up and walking without issue around the day area. 2131 - Patient was compliant with his HS medications and VS. Patient was able to remain in bed to rest after receiving (more content not included)... [facility] NURSING PROGon 11-10-2018 Protein mass conc HNO ID: [id number] Author: Taylor MedinaRn) BEN Alvarado Service: Nursing Author Type: Registered Nurse Type: Nursing Progress Note Filed: 11/10/2018 4:46 PM Note Text: Nursing Progress Note Patient Name: Kari Allan Patient Location: [id number]/[place] [id number]* Daily Note: Patient was able to get all medications through PEG and mouth. PEG is patent. Patient went to barium swallow test this morning. After test patient was placed back on clear liquid diet and is scheduled for EGD tomorrow. Patient is NPO after midnight tonight for scheduled EGD. Patient is aware, and is cooperative and pleasant. He is able to communicate his needs and remains under 1:1 care because he is a fall risk. He has been in a good mood, and is cooperative with staff. He was cooperative at his test today as well. Patient ate a clear serbian ice and some salty nico for lunch. This note was completed by: Taylor Alvarado RN [facility] Protein mass conc HNO ID: [id number] Author: Alma Rosa (Rn) BEN Hanna Service: Nursing Author Type: Registered Nurse Type: Nursing Progress Note Filed: 11/10/2018 6:32 AM Note Text: Nursing Progress Note Patient Name: Kari Allan [id number][facility] [place] [id number] Assumed care. Patient was visible on the unit in the beginning of shift, with sitter 1:1 observing patient. He was compliant with medication, Zofran 4 mg PRN given with HS meds. 0600- Patient awake and understanding of NPO status for procedure this AM. He is cooperative and in control although he becomes irritable at times. This note was completed by: Alma Rosa Hanna, RN [facility] PROGRESSon 11-10-2018 Protein mass conc HNO ID: [id number] Author: Ajith Palomares Service: Psychiatry Author Type: Physician Type: Progress Notes Filed: 11/10/2018 9:22 AM Note Text: PROGRESS NOTE BEHAVIORAL HEALTH SERVICE DATE: 11/10/2018 SERVICE TIME: 1030 Reviewed admitting history- Kari Allan is a 48 year old male with hx of anoxic brain injury, anoxic encephalopathy, pancreatitis, seizures, esphageal stricture, COPD, and DVT who was?brought in to [facility]for aggressive behaviors Remains on 05-31 with staff. Subjective No acute distress or behavioral issues observed at this time. . Denies any audio./visual hallucinations and denies any suicidal/homicidal ideation at this time. GI symptoms persist, prn zofran needed. Also, many prns for behaviors. Consider inc am seroquel, but no prn geodon in last 2days. . Seen by gi- esophageal gram done this am. Results pending. Active Problems: Nausea and vomiting may be 2/2 gastritis vs esophageal stent vs PUD -supportive care -PO PPI BID -diet per speech therapy recommendations -plan esophagram -KUB -current plan to keep EGD appointment for next month at [facility] Objective PHYSICAL EXAM: BP 97/77 Pulse 100 Temp 37.1 ?C (98.8 ?F) (Oral) Resp 16 Ht 177.8 cm (5' 10) Wt 76.7 kg (169 lb) SpO2 96% BMI 24.25 kg/m? MENTAL STATUS EXAMINATION: Appearance: Casually dressed and Disheveled Behavior: Disorganized; confused at times. Orientation: a+0x1 Speech/Language: soft, mumbled, difficult to understand at times Mood/Affect: Anxious and Distressed Thought Form: Perseveration Thought Content: Vague today. Suicidal Ideations: No suicidal ideation, intent or plan. Homicidal Ideations: No homicidal ideation, intent or plan. Insight: Insight is absent Judgment: Grossly impaired Memory/Cognition: Moderately Impaired Psychomotor: slowed NEW PROBLEMS ON UNIT SINCE LAST ENCOUNTER: None Current Facility-Administered Medications Medication Dose Route Frequency - nicotine polacrilex 2 mg gum (NICORETTE) 2 mg ORAL q 2 H PRN - ziprasidone 20 mg injection (GEODON) 20 mg INTRAMUSCULAR q 4 H PRN - acetaminophen 650 mg CUP (TYLENOL) 650 mg ORAL/FEEDING TUBE q 4 H PRN - bacitracin 500 unit/gram 1 application topical ointment 1 application TOPICAL PRN - escitalopram oxalate 10 mg tab(s) (LEXAPRO) 10 mg PEG DAILY - levETIRAcetam 750 mg CUP (KEPPRA) 750 mg ORAL/FEEDING TUBE BID - magnesium hydroxide 400 mg/5 mL 30 mL (MOM) 30 mL PEG DAILY PRN - melatonin 9 mg tab(s) 9 mg PEG AT BEDTIME - QUEtiapine 200 mg tab(s) (SEROquel) 200 mg PEG AT BEDTIME - thiamine 100 mg tab(s) (VITAMIN B1) 100 mg PEG DAILY - pantoprazole 40 mg granules for suspension (PROTONIX) 40 mg ORAL DAILY (6 AM) - ondansetron 4 mg tab(s) (ZOFRAN) 4 mg PEG q 6 H PRN - fludrocortisone 0.1 mg tab(s) (FLORINEF) 0.1 mg ORAL DAILY - folic acid 1 mg tab(s) 1 mg PEG DAILY - pyridoxine (vitamin B6) 25 mg tab(s) (VITAMIN B6) 25 mg PEG DAILY - cyanocobalamin 100 mcg tab(s) (VITAMIN B-12) 100 mcg PEG DAILY - dextromethorphan 20 mg - quiNIDine 10 mg capsule (NUEDEXTA) 1 capsule ORAL q 12 H - QUEtiapine 100 mg tab(s) (SEROquel) 100 mg ORAL/FEEDING TUBE BID - valproic acid 250 mg CUP (DEPAKENE) 250 mg ORAL QID - polyethylene glycol 3350 17 g packet (MIRALAX, GLYCOLAX) 17 g ORAL DAILY DATA: No New Labs Assessment/Plan DIAGNOSIS: PRIMARY: Impulse-Control Disorder Intermittent Explosive Disorder Traumatic Brain Injury with Pseudobulbar Affect Polysubstance Abuse History , Treatment non-compliance Alcohol dep GAF:30-21 Behavior is considerably influenced by delusions or hallucination or serious impairment in communication or judgment RISK ASSESSMENT: Suicide: low Homicide: low Deliberate Self-Harm: low Aggression: moderate-high Imminent Physical Self Impairment: low INFORMED CONSENT: Yes, completed with the patient's guardian.. Discussed the risks, benefits and alternatives to the medication(s) recommended. Consent was given. INTERVENTION: Biological: Continue Nuedexta 20/10 mg q12H, Lexapro 10 mg daily, Melatonin 9 mg qhs, Seroquel 100 mg BID and 200 mg qhs and Depakote 250 mg QID. Will recheck VPA in AM. Consider inc seroquel am dosing with hopes for less need for prn geodon. GI consult- nausea persists. . GI consult- Psychological: mileiu Social: discharge and follow up planning DISCHARGE PLANNING: when stable return to Shelter Facility SIGNATURE: Ajith Palomares DO PATIENT NAME: Kari Allan DATE: November 10, 2018 TIME: 1030 [facility] XR ESOPHAGRAMon 11-10-2018 XR ESOPHAGRAM * * *Final Report* * * DATE OF EXAM: Nov 10 2018 9:09AM MMX [id number] - XR ESOPHAGRAM / PROCEDURE REASON: Dysphagia, retrosternal, not immunocompromised * * * * Physician Interpretation * * * * ESOPHAGRAM HISTORY: Dysphagia, retrosternal, not immunocompromised. History of esophageal stent. TECHNIQUE: Esophagram was performed. The examination was modified because of the esophageal stent. Fluoroscopic Radiation Summary: Plane A, Air Kerma: 30.2 mGy Dose Area Product (DAP): 0.0 mGy*cmS2 Fluoro time: 1:00 min:sec RESULT: Correlation made with CT scan 10/26/2018. There is a stent in the mid and distal esophagus. Of the swallowed contrast was very slow to pass through the distal most aspect of the esophageal stent to the stomach and there is suggestion of a filling defect or lesion just distal to the distal tip of the esophageal stent in the region of the gastroesophageal junction. - IMPRESSION: Partial obstruction at the distal aspect of the esophageal stent where there may be a filling defect or lesion just distal to the stent. Endoscopy could better evaluate this finding. Cycle Manager: JENNY Transcribe Date/Time: Nov 10 2018 9:25A Dictated by : JACOBY WEBB MD This examination was interpreted and the report reviewed and electronically signed by: JACOBY WEBB MD on Nov 10 2018 9:27AM EST [id number] [facility] CASE MANAGEMon 11-09-2018 CASE MANAGEM HNO ID: [id number] Author: Roselia Frank) Loretta Willams Service: Social Work Author Type: Payroll Master Type: Care Mgt Progress Note Filed: 11/09/2018 8:10 AM Note Text: BEHAVIORAL HEALTH SOCIAL WORK PROGRESS NOTE SERVICE DATE: 11/09/2018 SERVICE TIME: 7:55 AM Mirna met a [facility] metals sales representative Cheikh Aleman on 11-08-17 . Cheikh was out to visit the pt and meet with the staff regarding his treatment and medication changes. Nurse Magdalena Razo also attended the meeting and assisted with medication review. Cheikh thought the pt looked pretty close to his baseline that afternoon. Staff reviewed the notes and it was seen that the pt has not been sleeping well at night and normally receives a PRN of Geodon in the am. Mirna will discuss with the doctor about making the Geodon a regular order. Cheikh Samuelleana is hoping that the pt will be able to return to [facility] by the end of the week. Mirna will update the pt' guardian /sister Karo Sanford @ [phone] once a d/c date has been established. ? SIGNATURE: DANIKA Suero PATIENT NAME: Kari Allan DATE: November 09, 2018 TIME: 7:55 AM [facility] CONSULTon 11-09-2018 CONSULT HNO ID: [id number] Author: Karl Perez Service: Gastroenterology Author Type: Physician Type: Consults Filed: 11/09/2018 2:18 PM Note Text: INITIAL CONSULT GASTROENTEROLOGY SERVICE DATE: 11/09/2018 SERVICE TIME: 1330 Consulting Service: GI Opinion/advice regarding: N/V/weight loss Subjective HPI: This is a 48 year old male who presents with behavioral issues. PMH significant for esophageal stenosis s/p stent , COPD on home O2, opipoid dependence, seizure disorder, and tobacco dependence. He is out in day room and very cooperative with exam and interview. He reports some dysphagia as well. He currently denies any abdominal pain. He does report recent EGD with esophageal stent placement done 10/11/18. He is planned for repeat EGD in 1 more month to remove stent. He has no abdominal pain and has been on clear liquids for at least 1 month. Seen by speech therapy this admission and advanced to dysphagia level 2 diet. PAST MEDICAL HISTORY Diagnosis Date - Acute respiratory failure (HCC) - Alcohol abuse - Anemia - Anemia - Back pain - C. difficile colitis - COPD (chronic obstructive pulmonary disease) (HCC) - Drug overdose - DVT (deep venous thrombosis) (HCC) - Dysphasia - Encephalopathy - Opiate dependence, continuous (HCC) - Pancreatitis - Pulmonary nodule seen on imaging study - Renal cyst - Seizure (HCC) - Sepsis (HCC) - Tobacco abuse - Weakness PAST SURGICAL HISTORY Procedure Laterality Date - APPENDECTOMY HX - BACK SURGERY HX - CHOLECYSTECTOMY HX - COLONOSCOPY 2014 - EGD 02/16/2017 - GASTROSTOMY/JEJUNOSTOMY TUBE 02/2017 - PICC LINE INSERT/CONSULT 04/04/2017 FAMILY HISTORY Problem Relation Age of Onset - Diabetes Mother - Blood Disease Father - Alcohol/Drug Brother - other (Pancreatitis) Brother Social History Tobacco Use - Smoking status: Current Every Day Smoker Packs/day: 0.50 Years: 30.00 Pack years: 15.00 Types: Cigarettes - Smokeless tobacco: Never Used Substance Use Topics - Alcohol use: No Alcohol/week: 28.0 oz Types: 28 Shots of liquor per week Comment: states drinks a 1/5 of vodka or more daily - Drug use: No Comment: chronic prescribed percoet use. MEDICATIONS: Prior to Admission Medications: divalproex DR (DEPAKOTE) 250 mg EC tablet 500 mg twice daily. Give through G-tube Omeprazole Magnesium 2.5 mg suDR 10 mL by PEG route twice daily. QUEtiapine (SEROQUEL) 200 mg tablet Take 1 tablet by mouth daily at bedtime. QUEtiapine (SEROQUEL) 50 mg tablet 1 tab daily at 9A and 2P through PEG tube magnesium hydroxide (MOM) 400 mg/5 mL suspension 30 mL by PEG route once daily as needed for Constipation. melatonin 3 mg tablet 3 tablets by PEG route daily at bedtime. escitalopram oxalate (LEXAPRO) 10 mg tablet Take 1 tablet by mouth once daily. ondansetron (ZOFRAN) 4 mg/5 mL solution 4 mg by PEG Tube route every 6 hours as needed for Nausea/Vomiting. bacitracin ointment Apply 1 application to affected area as needed (PEG irritation). vitamin b complex tab 1 tablet by PEG route once daily. famotidine (PEPCID) 20 mg tablet Take 1 tablet by mouth twice daily. acetaminophen (TYLENOL) 160 mg/5 mL (5 mL) solution 650 mg by PEG Tube route every 4 hours as needed (pain/fever). levETIRAcetam 750 mg tbsu 750 mg by PEG Tube route twice daily. colestipol (COLESTID) 1 gram tablet 1 g by PEG Tube route twice daily. acetaminophen (TYLENOL EXTRA STRENGTH) 500 mg tablet 500 mg by PEG route three times daily. COMPOUNDED PRESCRIPTION Flurinef 0.1mg daily docusate (DIOCTO, COLACE) 100 mg/10 mL liquid Take 10 mL by mouth twice daily. lactose-reduced food/fiber (JEVITY 1.5 KELLIE ORAL) 280 mL by PEG Tube route every 4 hours. ipratropium-albuterol (DUONEB) 0.5 mg-3 mg(2.5 mg base)/3 mL nebu Inhale 3 mL as instructed twice daily. BIFIDOBACTER. BIFIDUM/B.LONGUM (FLORAJEN BIFIDOBLEND ORAL) 2 capsules by PEG Tube route daily before breakfast. Miconazole powd 2 % twice daily. Current Facility-Administered Medications Medication Dose Route Frequency - nicotine polacrilex 2 mg gum (NICORETTE) 2 mg ORAL q 2 H PRN - ziprasidone 20 mg injection (GEODON) 20 mg INTRAMUSCULAR q 4 H PRN - acetaminophen 650 mg CUP (TYLENOL) 650 mg ORAL/FEEDING TUBE q 4 H PRN - bacitracin 500 unit/gram 1 application topical ointment 1 application TOPICAL PRN - escitalopram oxalate 10 mg tab(s) (LEXAPRO) 10 mg PEG DAILY - levETIRAcetam 750 mg CUP (KEPPRA) 750 mg ORAL/FEEDING TUBE BID - magnesium hydroxide 400 mg/5 mL 30 mL (MOM) 30 mL PEG DAILY PRN - melatonin 9 mg tab(s) 9 mg PEG AT BEDTIME - QUEtiapine 200 mg tab(s) (SEROquel) 200 mg PEG AT BEDTIME - thiamine 100 mg tab(s) (VITAMIN B1) 100 mg PEG DAILY - pantoprazole 40 mg granules for suspension (PROTONIX) 40 mg ORAL DAILY (6 AM) - ondansetron 4 mg tab(s) (ZOFRAN) 4 mg PEG q 6 H PRN - fludrocortisone 0.1 mg tab(s) (FLORINEF) 0.1 mg ORAL DAILY - folic acid 1 mg tab(s) 1 mg PEG DAILY - pyridoxine (vitamin B6) 25 mg tab(s) (VITAMIN B6) 25 mg PEG DAILY - cyanocobalamin 100 mcg tab(s) (VITAMIN B-12) 100 mcg PEG DAILY - dextromethorphan 20 mg - quiNIDine 10 mg capsule (NUEDEXTA) 1 capsule ORAL q 12 H - QUEtiapine 100 mg tab(s) (SEROquel) 100 mg ORAL/FEEDING TUBE BID - valproic acid 250 mg CUP (DEPAKENE) 250 mg ORAL QID - polyethylene glycol 3350 17 g packet (MIRALAX, GLYCOLAX) 17 g ORAL DAILY ALLERGIES Allergen Reactions - Haldol [Haloperidol* Unknown Copied from jul from halfway - Paragoric Swelling GI SPECIFIC REVIEW OF SYSTEMS: Positive for N/V/weight loss OTHER ROS: GENERAL: Weight loss HEENT: Negative for frequent or significant headaches, No changes in hearing or vision, no nose bleeds or other nasal problems NECK: Negative for lumps, goiter, pain and significant neck swelling RESPIRATORY: Negative for cough, hemoptysis, wheezing, COPD, dyspnea or shortness of breath CARDIOVASCULAR: Negative for chest pain, leg swelling, hypertension, CHF or palpitations : No history of dysuria, frequency or incontinence MUSCULOSKELETAL: Negative for joint pain or swelling, back pain or muscle pain SKIN: Negative for lesions, rash, and itching PSYCH: See HPI HEMATOLOGY/LYMPHOLOGY: Negative for prolonged bleeding, bruising easily or swollen nodes ENDOCRINE: Negative for cold or heat intolerance, polyuria, polydipsia and goiter NEURO: No history of headaches, syncope, paralysis, seizures or tremors Objective PHYSICAL EXAM: BP 96/65 Pulse 110 Temp 37.1 ?C (98.8 ?F) (Oral) Resp 18 Ht 177.8 cm (5' 10) Wt 76.7 kg (169 lb) SpO2 96% BMI 24.25 kg/m? GENERAL- AAO x 3, no distress HEENT: Moist mucus membranes LUNGS: Clear to auscultation bilaterally CARDIAC: S1, S2 heard, no murmur appreciated ABDOMEN: Soft, non-tender without guarding or rigidity, normal bowel sounds; PEG site CDI EXTREMITIES: No pedal edema DATA: Component Latest Ref Rng AND Units 09/29/2017 08/31/2018 11/04/2018 11/08/2018 WBC 3.70 - 11.00 k/uL 4.91 6.98 6.72 RBC 4.20 - 6.00 m/uL 3.88 (L) 4.87 3.89 (L) Hemoglobin 13.0 - 17.0 g/dL 12.1 (L) 15.7 12.2 (L) Hematocrit 39.0 - 51.0 % 36.8 (L) 45.6 36.5 (L) MCV 80.0 - 100.0 fL 94.8 93.6 93.8 MCH 26.0 - 34.0 pG 31.2 32.2 31.4 MCHC 30.5 - 36.0 g/dL 32.9 34.4 33.4 RDW-CV 11.5 - 15.0 % 14.0 13.2 13.4 Platelet Count 150 - 400 k/uL 238 289 301 MPV 9.0 - 12.7 fL 10.3 9.3 9.0 Neut% % 49.2 47.2 Abs Neut (ANC) 1.45 - 7.50 k/uL 2.41 3.16 Lymph% % 34.6 34.8 Abs Lymph 1.00 - 4.00 k/uL 1.70 2.34 Hamlin% % 13.0 10.6 Abs Hamlin <0.87 k/uL 0.64 0.71 Eosin% % 2.6 6.8 Abs Eosin <0.46 k/uL 0.13 0.46 (H) Baso% % 0.6 0.6 Abs Baso <0.11 k/uL 0.03 0.04 Nucleated Reds 0 /100 WBC 0.0 Absolute nRBC <0.01 k/uL <0.01 <0.01 Diff Type Auto Diff NRBCs 0 /100 WBC 0.0 Protein, Total 6.3 - 8.0 g/dL 7.3 Albumin 3.9 - 4.9 g/dL 4.0 Calcium 8.5 - 10.2 mg/dL 9.4 9.8 9.2 Bilirubin, Total 0.2 - 1.3 mg/dL 0.9 Alkaline Phosphatase 36 - 108 U/L 117 (H) AST 14 - 40 U/L 76 (H) Glucose 74 - 99 mg/dL 74 95 115 (H) BUN 6 - 20 mg/dL 16 16 7 Creatinine 0.67 - 1.17 mg/dL 0.68 (L) 0.93 0.86 Sodium 136 - 144 mmol/L 143 138 138 Potassium 3.4 - 4.5 mmol/L 3.6 (L) 4.7 4.3 Chloride 98 - 107 mmol/L 103 98 102 CO2 22 - 29 mmol/L 23 25 24 Anion Gap 0 - 15 mmol/L 17 15 12 ALT 10 - 54 U/L 25 eGFR- >60 >60 >60 >60 eGFR-All Other Races >60 . >60 >60 >60 PT Sec 9.7 - 13.0 sec 10.6 PT INR 0.9 - 1.3 1.0 Valproic Acid 50 - 100 ug/mL 56.5 Diagnostic Tests Reviewed for Today's Visit: Impression/Recommendations Active Problems: Nausea and vomiting may be 2/2 gastritis vs esophageal stent vs PUD -supportive care -PO PPI BID -diet per speech therapy recommendations -plan esophagram -KUB -current plan to keep EGD appointment for next month at [facility] Impulse control disorder Nicotine abuse Moderate protein calorie malnutrition -oral supplements Attending Note I have personally performed a face to face assessment of the patient and have reviewed the DEANNE note. My schultz findings include: Assessment/Plan are N/V ,regurgitation , h/o esophageal stent, Plan; esophagogram, carafate Other additions or changes: As edited Signature: Karl Perez MD Date: 11/09/2018 Time: 2:17 PM SIGNATURE: Betsey Richardson APRN.CNP PATIENT NAME: Kari Allan DATE: November 09, 2018 TIME: 1:43 PM PAGER/CONTACT #: [phone] [facility] NURSING PROGon 11-09-2018 Protein mass conc HNO ID: [id number] Author: Jodi (Rn) BEN Umaña Service: Behavioral Health Author Type: Registered Nurse Type: Nursing Progress Note Filed: 11/09/2018 12:13 PM Note Text: Nursing Progress Note Patient Name: Kari Allan Patient Location: [id number]/[place] [id number] Daily Note: Received report from previous shift and assumed care of patient at 0730. Pt is disheveled, unkempt, and dressed in hospital attire this shift. Pt was compliant with vitals, assessment, and medication administration this shift. Pt is labile, friendly, and pleasant on approach. Pt remains a 1:1 this shift. Pt reported 9/10 stomach pain and nausea, pt received PRN Tylenol and Zofran at 0930, upon pain reassessment, pt continued to report 9/10 stomach pain but declined further nursing intervention. Pt continued to complain of GI upset and received PRN Milk of Magnesium at 1204 with reported relief of symptoms. Pt has been present in the day area, social with select peers, and did not attend groups this shift. Pt denies SI, HI, AH, and VH at this time. Fall precautions, seizure precautions, and Q 15 minute safety checks maintained this shift, will continue to monitor. This note was completed by: Jodi Umaña RN [facility] Protein mass conc HNO ID: [id number] Author: Nasreen Castañeda LPN Service: Nursing Author Type: LICENSED NURSE Type: Nursing Progress Note Filed: 11/09/2018 5:12 AM Note Text: Nursing Progress Note Patient Name: Kari Allan Patient Location: [place] [id number]* Daily Note: Received report from previous shift and assumed care. Kari was c/o nausea and was given PRN zofran with his bedtime medication. He was pleasant, friendly and cooperative this evening. Will continue to monitor on Q 15 minute safety checks. Patient also remains on a 1:1 with staff. 0500. Patient presently asleep in his bed with his 1:! Staff watching over him. Has been sleeping since 2339. This note was completed by: Nasreen Castañeda LPN [facility] PROGRESSon 11-09-2018 Protein mass conc HNO ID: [id number] Author: Ajith Palomares Service: Psychiatry Author Type: Physician Type: Progress Notes Filed: 11/09/2018 9:28 AM Note Text: PROGRESS NOTE BEHAVIORAL HEALTH SERVICE DATE: 11/09/2018 SERVICE TIME: 1030 Reviewed admitting history- Kari Allan is a 48 year old male with hx of anoxic brain injury, anoxic encephalopathy, pancreatitis, seizures, esphageal stricture, COPD, and DVT who was?brought in [facility]for aggressive behaviors Remains on 05-31 with staff. Subjective No acute distress or behavioral issues observed at this time. . Denies any audio./visual hallucinations and denies any suicidal/homicidal ideation at this time. GI symptoms persist, prn zofran needed. Also, many prns for behaviors. Consider inc am seroquel . Objective PHYSICAL EXAM: BP 96/65 Pulse 110 Temp 37.1 ?C (98.8 ?F) (Oral) Resp 18 Ht 177.8 cm (5' 10) Wt 90.7 kg (200 lb) SpO2 96% BMI 28.70 kg/m? MENTAL STATUS EXAMINATION: Appearance: Casually dressed and Disheveled Behavior: Disorganized; confused at times. Orientation: a+0x1 Speech/Language: soft, mumbled, difficult to understand at times Mood/Affect: Anxious and Distressed Thought Form: Perseveration Thought Content: Vague today. Suicidal Ideations: No suicidal ideation, intent or plan. Homicidal Ideations: No homicidal ideation, intent or plan. Insight: Insight is absent Judgment: Grossly impaired Memory/Cognition: Moderately Impaired Psychomotor: slowed NEW PROBLEMS ON UNIT SINCE LAST ENCOUNTER: None Current Facility-Administered Medications Medication Dose Route Frequency - nicotine polacrilex 2 mg gum (NICORETTE) 2 mg ORAL q 2 H PRN - ziprasidone 20 mg injection (GEODON) 20 mg INTRAMUSCULAR q 4 H PRN - acetaminophen 650 mg CUP (TYLENOL) 650 mg ORAL/FEEDING TUBE q 4 H PRN - bacitracin 500 unit/gram 1 application topical ointment 1 application TOPICAL PRN - escitalopram oxalate 10 mg tab(s) (LEXAPRO) 10 mg PEG DAILY - levETIRAcetam 750 mg CUP (KEPPRA) 750 mg ORAL/FEEDING TUBE BID - magnesium hydroxide 400 mg/5 mL 30 mL (MOM) 30 mL PEG DAILY PRN - melatonin 9 mg tab(s) 9 mg PEG AT BEDTIME - QUEtiapine 200 mg tab(s) (SEROquel) 200 mg PEG AT BEDTIME - thiamine 100 mg tab(s) (VITAMIN B1) 100 mg PEG DAILY - pantoprazole 40 mg granules for suspension (PROTONIX) 40 mg ORAL DAILY (6 AM) - ondansetron 4 mg tab(s) (ZOFRAN) 4 mg PEG q 6 H PRN - fludrocortisone 0.1 mg tab(s) (FLORINEF) 0.1 mg ORAL DAILY - folic acid 1 mg tab(s) 1 mg PEG DAILY - pyridoxine (vitamin B6) 25 mg tab(s) (VITAMIN B6) 25 mg PEG DAILY - cyanocobalamin 100 mcg tab(s) (VITAMIN B-12) 100 mcg PEG DAILY - dextromethorphan 20 mg - quiNIDine 10 mg capsule (NUEDEXTA) 1 capsule ORAL q 12 H - QUEtiapine 100 mg tab(s) (SEROquel) 100 mg ORAL/FEEDING TUBE BID - valproic acid 250 mg CUP (DEPAKENE) 250 mg ORAL QID - polyethylene glycol 3350 17 g packet (MIRALAX, GLYCOLAX) 17 g ORAL DAILY DATA: No New Labs Assessment/Plan DIAGNOSIS: PRIMARY: Impulse-Control Disorder Intermittent Explosive Disorder Traumatic Brain Injury with Pseudobulbar Affect Polysubstance Abuse History , Treatment non-compliance Alcohol dep GAF:30-21 Behavior is considerably influenced by delusions or hallucination or serious impairment in communication or judgment RISK ASSESSMENT: Suicide: low Homicide: low Deliberate Self-Harm: low Aggression: moderate-high Imminent Physical Self Impairment: low INFORMED CONSENT: Yes, completed with the patient's guardian.. Discussed the risks, benefits and alternatives to the medication(s) recommended. Consent was given. INTERVENTION: Biological: Continue Nuedexta 20/10 mg q12H, Lexapro 10 mg daily, Melatonin 9 mg qhs, Seroquel 100 mg BID and 200 mg qhs and Depakote 250 mg QID. Will recheck VPA in AM. Consider inc seroquel am dosing with hopes for less need for prn geodon. GI consult- nausea persists. . GI consult- Psychological: mileiu Social: discharge and follow up planning DISCHARGE PLANNING: when stable return to Shelter Facility SIGNATURE: Ajith Palomares DO PATIENT NAME: Kari Allan DATE: November 09, 2018 TIME: 1030 [facility] XR ABDOMEN 1V SUPINEon 11-09 XR ABDOMEN 1V SUPINE * * *Final Report* * * DATE OF EXAM: Nov 09 2018 2:13PM MMX [id number] - XR ABDOMEN 1V SUPINE / PROCEDURE REASON: Nausea, vomiting * * * * Physician Interpretation * * * * ABDOMEN - KUB: Indication: Abdominal pain. Views: Supine. Comparison: 2017 Findings: Gas in nondistended stomach, small bowel, and large bowel.. Gastrostomy tube upper abdomen. Orthopedic hardware lumbar spine. Surgical clips project IMPRESSION: Non-specific bowel gas pattern. Cycle Manager: JENNY Transcribe Date/Time: Nov 09 2018 2:38P Dictated by : WALTER ARTHUR DO This examination was interpreted and the report reviewed and electronically signed by: WALTER ARTHUR DO on Nov 09 2018 2:41PM EST [id number] [facility] ALLIED HEALTHon 11-08-2018 ALLIED HEALTH HNO ID: [id number] Author: Sr. Garcia [facility] [place] Service: Recreational Therapy Author Type: Therapist Type: Allied Health Filed: 11/08/2018 1:24 PM Note Text: PROGRESS NOTE BEHAVIORAL HEALTH Topic of Note: Three Day Note SERVICE DATE: 11/08/2018 SERVICE TIME: Patient has only attended two structured RT groups in the past three days. He continues on a 1:1, due to being a fall risk. In those two groups, patient has been in behavioral control, but remains delusional, disorganized and disheveled/unkempt. Groups will continue to be encouraged in order to promote healthy coping and social skills. SIGNATURE: JOSEPH Kaye PATIENT NAME: Kari Allan DATE: November 08, 2018 TIME: 1:19 PM PAGER/CONTACT #: [facility] NURSING PROGon 11-08-2018 Protein mass conc HNO ID: [id number] Author: Magdalena Perry (Rn) BEN Razo Service: Nursing Author Type: Registered Nurse Type: Nursing Progress Note Filed: 11/08/2018 7:06 PM Note Text: Nursing Progress Note Patient Name: Kari Allan Patient Location: [id number]/[place] [id number] Daily Note: Pt labile this am . He got into an argument with female per today. He asked for and received medication to help calm down. Pt accepted IM geodon with good results. His peg tube is patent and pt accepted all medications as ordered. He c/o stomach upset and received MOM. Able to take a long nap this am, woke up and stated he felt rested and refreshed. 1800 Pt c/o anaphalatic reflex he was holding the left side of his chest/clavical area. Pt stated he Has had this before. Medical doctor paged. Vitals stable. Pt has been c/o upset stomach most of the day. Poor po intake. This note was completed by: Magdalena Razo RN [facility] PROGRESSon 11-08-2018 Protein mass conc HNO ID: [id number] Author: Ajith Palomares Service: Psychiatry Author Type: Physician Type: Progress Notes Filed: 11/08/2018 9:46 AM Note Text: PROGRESS NOTE BEHAVIORAL HEALTH SERVICE DATE: 11/08/2018 SERVICE TIME: 1030 Reviewed admitting history- Kari Allan is a 48 year old male with hx of anoxic brain injury, anoxic encephalopathy, pancreatitis, seizures, esphageal stricture, COPD, and DVT who was?brought in to [facility]for aggressive behaviors Remains on 05-31 with staff. Subjective No acute distress or behavioral issues observed at this time. He is delusional. Denies any audio./visual hallucinations and denies any suicidal/homicidal ideation at this time. prns this am. Now sleeping Attempted to meet with patient this morning with social services coordinator.many prns. Still with some gi symptoms. Objective PHYSICAL EXAM: BP 98/80 Pulse 109 Temp 37.6 ?C (99.7 ?F) (Oral) Resp 16 Ht 177.8 cm (5' 10) Wt 90.7 kg (200 lb) SpO2 96% BMI 28.70 kg/m? MENTAL STATUS EXAMINATION: Appearance: Disheveled, lying in bed under covers Behavior: sleeping quietly Otherwise unable to assess. NEW PROBLEMS ON UNIT SINCE LAST ENCOUNTER: None Current Facility-Administered Medications Medication Dose Route Frequency - nicotine polacrilex 2 mg gum (NICORETTE) 2 mg ORAL q 2 H PRN - ziprasidone 20 mg injection (GEODON) 20 mg INTRAMUSCULAR q 4 H PRN - acetaminophen 650 mg CUP (TYLENOL) 650 mg ORAL/FEEDING TUBE q 4 H PRN - bacitracin 500 unit/gram 1 application topical ointment 1 application TOPICAL PRN - escitalopram oxalate 10 mg tab(s) (LEXAPRO) 10 mg PEG DAILY - levETIRAcetam 750 mg CUP (KEPPRA) 750 mg ORAL/FEEDING TUBE BID - magnesium hydroxide 400 mg/5 mL 30 mL (MOM) 30 mL PEG DAILY PRN - melatonin 9 mg tab(s) 9 mg PEG AT BEDTIME - QUEtiapine 200 mg tab(s) (SEROquel) 200 mg PEG AT BEDTIME - thiamine 100 mg tab(s) (VITAMIN B1) 100 mg PEG DAILY - pantoprazole 40 mg granules for suspension (PROTONIX) 40 mg ORAL DAILY (6 AM) - ondansetron 4 mg tab(s) (ZOFRAN) 4 mg PEG q 6 H PRN - fludrocortisone 0.1 mg tab(s) (FLORINEF) 0.1 mg ORAL DAILY - folic acid 1 mg tab(s) 1 mg PEG DAILY - pyridoxine (vitamin B6) 25 mg tab(s) (VITAMIN B6) 25 mg PEG DAILY - cyanocobalamin 100 mcg tab(s) (VITAMIN B-12) 100 mcg PEG DAILY - dextromethorphan 20 mg - quiNIDine 10 mg capsule (NUEDEXTA) 1 capsule ORAL q 12 H - QUEtiapine 100 mg tab(s) (SEROquel) 100 mg ORAL/FEEDING TUBE BID - valproic acid 250 mg CUP (DEPAKENE) 250 mg ORAL QID - polyethylene glycol 3350 17 g packet (MIRALAX, GLYCOLAX) 17 g ORAL DAILY DATA: No New Labs Assessment/Plan DIAGNOSIS: PRIMARY: Impulse-Control Disorder Intermittent Explosive Disorder Traumatic Brain Injury with Pseudobulbar Affect Polysubstance Abuse History , Treatment non-compliance Alcohol dep GAF:30-21 Behavior is considerably influenced by delusions or hallucination or serious impairment in communication or judgment RISK ASSESSMENT: Suicide: low Homicide: low Deliberate Self-Harm: low Aggression: moderate-high Imminent Physical Self Impairment: low INFORMED CONSENT: Yes, completed with the patient's guardian.. Discussed the risks, benefits and alternatives to the medication(s) recommended. Consent was given. INTERVENTION: Biological: Continue Nuedexta 20/10 mg q12H, Lexapro 10 mg daily, Melatonin 9 mg qhs, Seroquel 100 mg BID and 200 mg qhs and Depakote 250 mg QID. Will recheck VPA in AM Psychological: mileiu Social: discharge and follow up planning DISCHARGE PLANNING: when stable return to Shelter Facility SIGNATURE: Ajith Palomares DO PATIENT NAME: Kari Allan DATE: November 08, 2018 TIME: 1030 Normal [facility] Valproic Acidon 11-08-2018 Protein mass conc 56.5 ug/mL Normal 50-100 [facility] Comment on above: Result Comment: Refe rence ranges and high/low indicator flags are provided as general guidelines only. The treating physician must determine appropriate target levels/dosing based on the specific clinical situation. Performed By: #### V PA ####[facility], [place] [phone] CASE MANAGEMon 11-07-2018 CASE MANAGEM HNO ID: [id number] Author: Maggie Villanueva (Sw) Service: ? Author Type: Payroll Master Type: Care Mgt Progress Note Filed: 11/07/2018 2:02 PM Note Text: BEHAVIORAL HEALTH SOCIAL WORK PROGRESS NOTE SERVICE DATE: 11/07/2018 SERVICE TIME: 14:02 Treatment team attempted to meet with patient at bedside. Patient was unable to respond to verbal stimuli. Per staff, patient has been verbally abusive towards staff. Staff reported patient being delusional and believes that he has a job. Patient will continue his stay for stabilization. SIGNATURE: DANIKA Steele PATIENT NAME: Kari Allan DATE: November 07, 2018 TIME: 1:55 PM [facility] NURSING PROGon 11-07-2018 Protein mass conc HNO ID: [id number] Author: Ana Luisa MedinaRn) BEN Peace Service: Nursing Author Type: Registered Nurse Type: Nursing Progress Note Filed: 11/08/2018 6:52 AM Note Text: Nursing Progress Note Patient Name: Kari Allan Patient Location: [id number]/[place] [id number]* Daily Note: 1900 - Assumed care of patient. Received report on patient from previous staff. Patient visible in the day area at the start of shift. Patient is disheveled and unkempt, wearing hospital gown and pants. Patient remains 1:1 with staff. Patient denies suicidal and homicidal ideations and auditory and visual hallucinations. Patient's affect is blunted and mood euthymic. Patient remains irritable at times. Patient continues to be somatic about stomach pains, he states, It feels like I ate a basketball. Patient was less loud and boisterous this evening, keeping to himself and remaining in control physically and verbally. Patient was social with select peers and staff. Patient ate an evening snack. 2149 - Patient was compliant with his HS medications and VS. Patient was given prn MOM 30 mL (via PEG tube) for GI upset. Patient denied any medication side effects. Patient's behavior has been in control. Safety measures and patient checks per unit protocol, will continue to monitor. 2300 - Observed patient sleeping in his room. Safety measures and patient checks per unit protocol, will continue to monitor 223 - Patient vomited phlegm and mucus. He requested ice water, which was given to him. He was awake and talking with this RN. Will continue to monitor. 0309 - PRN Zofran 4 mg (via PEG tube) was given to patient for nausea/vomiting, results pending. 0409 - Patient was observed awake in the phone area. When prompted, he reported relief from medication. Zofran resulted in positive effects. Will continue to monitor. 0630 - Patient slept for approximately 4 hours. Patient was not in distress, voiced no complaints, and his behavior has been in control throughout the shift. No PRNs were given this shift. This note was completed by: Ana Luisa Peace RN [facility] Protein mass conc HNO ID: [id number] Author: Horacio Blake LPN Service: ? Author Type: LICENSED NURSE Type: Nursing Progress Note Filed: 11/07/2018 1:33 PM Note Text: Nursing Progress Note Patient Name: Kari Allan Patient Location: [id number]/[place] [address]* Daily Note:Pt has been in his room most of the shift. Observed sitting in his room and laying in his bed with his eyes closed. He is alert to self. General appearance is disheveled in hospital attire. Mood/affect is euthymic. No interaction with peers and minimal interaction with staff. Appetite is poor. He did not eat breakfast or lunch. No groups attended. No acute distress or behavioral issues observed at this time. He is delusional. Denies any audio./visual hallucinations and denies any suicidal/homicidal ideation at this time. Will continue to monitor pt q 15 minutes on rounds for safety. This note was completed by: Horacio Blake LPN [facility] Protein mass conc HNO ID: [id number] Author: Alma Rosa Sutton) BEN Hanna Service: Nursing Author Type: Registered Nurse Type: Nursing Progress Note Filed: 11/07/2018 6:06 AM Note Text: Nursing Progress Note Patient Name: Kari Allan Patient Location: [id number]/[place] [id number]* [phone] Assumed care. Patient c/o abdominal pain/discomfort and was given Tylenol 650 mg and Zofran 4 mg PRN with evening medication. He has this delusion that he's at work and ingesting fiberglass. He's becoming anxious and paranoid, I don't wanna fuck up my lungs! He needs reoriented to place, then realizes he's in the hospital. 0550- Patient awake and continues to try leave. He still believes his health is in danger from a toxic work environment. He's becoming increasingly hostile and verbally abusive. He was medicated with Geodon 20 mg IM PRN. This note was completed by: Alma Rosa Hanna RN [facility] NUTRITIONon 11-07-2018 NUTRITION HNO ID: [id number] Author: Serge Yost Service: Nutrition Therapy Author Type: Registered Dietitian Type: Nutrition Filed: 11/07/2018 1:09 PM Note Text: NUTRITION THERAPY SCREENING NOTE SERVICE DATE: 11/07/2018 SERVICE TIME: 12:00 PM NUTRITION CARE PLAN Patient's weight is stable and nutritional intake is adequate. Patient is not at risk for malnutrition at this time. Intervention: - Continue Dysphagia Level 2 diet with thin liquids - Continue Ensure Enlive TID - Recommend Miralax QD Discharge Nutrition Recommendations: Diet: Dysphagia level 2 Per HPI: 48 yo M admitted for agitation. 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 ?Hx of respiratory failure secondary to opioid drug overdose, alcohol abuse. ?He has a history of pancreatitis and has a G-tube in place. S/P MBSS and diet advanced to dysphagia level 2 with thin liquids. Reconsulted by RN to evaluate for abdominal pain after diet advancement from full liquids to dysphagia level 2 (he was admitted with these symptoms while on liquids; imaging was negative). Etiology unclear but likely multifactorial - constipation vs medication vs psychosomatic. 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 Pt denied any abdominal discomfort today upon examination. Discussed with patient and RN - devyn to monitor for 1-2 days. Abdomen slightly firm but I don't see an indication for a KUB as pt asymptomatic. Discussed with Aditi- recommend scheduled miralax and monitor. Orders Placed This Encounter DIET FOOD CONSISTENCY CONTROLLED Standing Status: Standing Number of Occurrences: 1 Order Specific Question: Food Consistency Answer: DYSPHAGIA LEVEL 2 MECHANICALLY ALTERED Order Specific Question: Liquid Consistency Answer: THIN LIQUID (L0) Order Specific Question: FOR RDs ONLY Provider Collaborated With Answer: AJITH PALOMARES [[id number]] Supplement 1 Frequency: 1. BREAKFAST; 5. DINNER Supplement 2 Frequency: 3. LUNCH Supplement 1: ENSURE ENLIVE CHOCOLATE Supplement 2: ENSURE ENLIVE VANILLA There are no questions and answers to display. There are no questions and answers to display. Nutritional Intake Prior to Admission: >75% estimated energy needs over the past 6 month(s) Anthropometrics: Height: 177.8 cm (5' 10) Admission Weight: 90.7 kg (200 lb) Current Weight: 90.7 kg (200 lb) Body mass index is 28.7 kg/m?. overweight Weight has not changed significantly Last Wt 10/27/18 : 90.7 kg (200 lb) 10/26/18 : 90.7 kg (200 lb) 08/31/18 : 83.1 kg (183 lb 3.2 oz) 01/04/18 : 57.6 kg (127 lb) 12/26/17 : 56.7 kg (125 lb) 11/30/17 : 57.6 kg (127 lb) 11/01/17 : 53.5 kg (118 lb) 10/06/17 : 52.8 kg (116 lb 8 oz) 09/28/17 : 50.1 kg (110 lb 7.2 oz) 09/21/17 : 53.8 kg (118 lb 9.6 oz) 08/07/17 : 52.2 kg (115 lb) 08/06/17 : 51.5 kg (113 lb 8.6 oz) 07/13/17 : 53.1 kg (117 lb) 04/23/17 : 53.3 kg (117 lb 9.6 oz) 04/08/17 : 54.3 kg (119 lb 11.4 oz) 04/05/17 : 54.3 kg (119 lb 11.4 oz) 03/16/17 : 56.8 kg (125 lb 3.5 oz) 01/15/17 : 60.7 kg (133 lb 14.4 oz) 09/18/16 : 64.9 kg (143 lb) 09/10/16 : 64.4 kg (142 lb) MNT Billing Type: Re-assess/15 min 2 units SIGNATURE: Serge Yost RD PATIENT NAME: Kari Allan DATE: November 07, 2018 TIME: 12:59 PM PAGER: [phone] [facility] PROGRESSon 11-07-2018 Protein mass conc HNO ID: [id number] Author: Davis Ojeda) Skip Service: Psychiatry Author Type: Physician Prop And Effects Designer Type: Progress Notes Filed: 11/07/2018 1:18 PM Note Text: PROGRESS NOTE BEHAVIORAL HEALTH SERVICE DATE: 11/07/2018 SERVICE TIME: 1030 Reviewed admitting history- Kari Allan is a 48 year old male with hx of anoxic brain injury, anoxic encephalopathy, pancreatitis, seizures, esphageal stricture, COPD, and DVT who was?brought [facility]for aggressive behaviors Remains on 05-31 with staff. Subjective Attempted to meet with patient this morning with social services coordinator. Patient sleeping. He received Geodon this morning. Per nursin- Patient awake and continues to try leave. He still believes his health is in danger from a toxic work environment. He's becoming increasingly hostile and verbally abusive. He was medicated with Geodon 20 mg IM PRN. Objective PHYSICAL EXAM: BP 110/66 Pulse 110 Temp 36.8 ?C (98.2 ?F) (Oral) Resp 16 Ht 177.8 cm (5' 10) Wt 90.7 kg (200 lb) SpO2 98% BMI 28.70 kg/m? MENTAL STATUS EXAMINATION: Appearance: Disheveled, lying in bed under covers Behavior: sleeping quietly Otherwise unable to assess. NEW PROBLEMS ON UNIT SINCE LAST ENCOUNTER: None Current Facility-Administered Medications Medication Dose Route Frequency - nicotine polacrilex 2 mg gum (NICORETTE) 2 mg ORAL q 2 H PRN - ziprasidone 20 mg injection (GEODON) 20 mg INTRAMUSCULAR q 4 H PRN - acetaminophen 650 mg CUP (TYLENOL) 650 mg ORAL/FEEDING TUBE q 4 H PRN - bacitracin 500 unit/gram 1 application topical ointment 1 application TOPICAL PRN - escitalopram oxalate 10 mg tab(s) (LEXAPRO) 10 mg PEG DAILY - levETIRAcetam 750 mg CUP (KEPPRA) 750 mg ORAL/FEEDING TUBE BID - magnesium hydroxide 400 mg/5 mL 30 mL (MOM) 30 mL PEG DAILY PRN - melatonin 9 mg tab(s) 9 mg PEG AT BEDTIME - QUEtiapine 200 mg tab(s) (SEROquel) 200 mg PEG AT BEDTIME - thiamine 100 mg tab(s) (VITAMIN B1) 100 mg PEG DAILY - pantoprazole 40 mg granules for suspension (PROTONIX) 40 mg ORAL DAILY (6 AM) - ondansetron 4 mg tab(s) (ZOFRAN) 4 mg PEG q 6 H PRN - fludrocortisone 0.1 mg tab(s) (FLORINEF) 0.1 mg ORAL DAILY - folic acid 1 mg tab(s) 1 mg PEG DAILY - pyridoxine (vitamin B6) 25 mg tab(s) (VITAMIN B6) 25 mg PEG DAILY - cyanocobalamin 100 mcg tab(s) (VITAMIN B-12) 100 mcg PEG DAILY - dextromethorphan 20 mg - quiNIDine 10 mg capsule (NUEDEXTA) 1 capsule ORAL q 12 H - QUEtiapine 100 mg tab(s) (SEROquel) 100 mg ORAL/FEEDING TUBE BID - valproic acid 250 mg CUP (DEPAKENE) 250 mg ORAL QID DATA: No New Labs Assessment/Plan DIAGNOSIS: PRIMARY: Impulse-Control Disorder Intermittent Explosive Disorder Traumatic Brain Injury with Pseudobulbar Affect Polysubstance Abuse History , Treatment non-compliance Alcohol dep GAF:30-21 Behavior is considerably influenced by delusions or hallucination or serious impairment in communication or judgment RISK ASSESSMENT: Suicide: low Homicide: low Deliberate Self-Harm: low Aggression: moderate-high Imminent Physical Self Impairment: low INFORMED CONSENT: Yes, completed with the patient's guardian.. Discussed the risks, benefits and alternatives to the medication(s) recommended. Consent was given. INTERVENTION: Biological: Continue Nuedexta 20/10 mg q12H, Lexapro 10 mg daily, Melatonin 9 mg qhs, Seroquel 100 mg BID and 200 mg qhs and Depakote 250 mg QID. Will recheck VPA in AM Psychological: mileiu Social: discharge and follow up planning DISCHARGE PLANNING: when stable return to Shelter Facility SIGNATURE: Davis Morel PA-C PATIENT NAME: Kari Allan DATE: November 07, 2018 TIME: 1030 [facility] NURSING PROGon 11-06-2018 Protein mass conc HNO ID: [id number] Author: José Miguel Wilson LPN Service: ? Author Type: LICENSED NURSE Type: Nursing Progress Note Filed: 11/06/2018 6:13 PM Note Text: Nursing Progress Note Patient Name: Kari Allan Patient Location: [id number]/[place] [id number]* Daily Note: Assessed as charted, impulsive on approach, not social with others, discharge focused, frequently in and out of room, denies all, poor appetite, cooperative with staff, medicine compliant, poor appetite, milk of magnesia and tylenol given in morning, zofran and tylenol given in afternoon, claimed less abdominal distress than yesterday. This note was completed by: José Miguel Wilson LPN [facility] Protein mass conc HNO ID: [id number] Author: Ralph Yanez RN Service: Nursing Author Type: Registered Nurse Type: Nursing Progress Note Filed: 11/06/2018 12:14 AM Note Text: Behavioral Restraints Summary and Debriefing Note PATIENT NAME: Kari Allan Date in Restraints 10/05/2018 Time in Restraints 2346 Staff Member(s) present: Ralph Yanez RN, Mable West RN, Rosetta Boyd, BEN, Roxana Walker RN, JAMES Sánchez. Violent Restraints-Clinical Justification: Documentation required with Every Initial and Continued Order. The patient is demonstrating violent or self-destructive behavior that jeopardizes the immediate safety of the patient/others. Length of Order: 4 Hours (Age 18 and Older) Police/Security Involvement: Hands on Escort Restraint Contraindications Considered: None Alternatives Attempted: Verbal De-escalation (patient cognitively intact), Verbal Redirection (patient cognitively impaired), Diversion Activities, Re-Orientation Methods Response to Alternatives: Patient Would/Could Not Engage in Problem Solving, Patient Would/Could Not Follow Directions, Patient Would/Could Not Stay in Room Reason for Application: Combative Behavior, Risk of Harm to Others Type of Restraint: Physical Hold Verify Application: Yes, Proper Application Verified Criteria for Release: Demonstrates Decreased Psychomotor Activity, Follows Directions and Demonstrates Self Control AND Safe Behavior Patient Explanation Provided: Refused Discussion Family Notification: No Family Available Family Explanation Provided: No Family Available Supportive Interventions: Medication (See MAR) Debriefing: Debriefing Occurred (See Note) Restraint Type Type of Restraint: Physical Hold Describe incident and rationale for type of intervention selected: Pt refused to comply with staff direction to return to room due to aggressive behavior such as cursing and threatening staff, posturing, clenching fists, and disturbing the milieu. Patient was able to identify prec ipitants and suggest alternatives for next time situation occurs. Patient was not injured/harmed by experience. Response to debriefing and additional details: Pt refused to participate in the debriefing. Suggestions to prevent further episodes: Pt complies with staff direction, pt does not threaten staff or other patients, pt does not interrupt the milieu. Time out of Restraints 2346 Date of debriefin11/05/2018 Time of debriefin Ralph Yanez RN 11/05/2018 [facility] Protein mass conc HNO ID: [id number] Author: Ralph (Rn) BEN Yanez Service: Nursing Author Type: Registered Nurse Type: Nursing Progress Note Filed: 11/06/2018 12:07 AM Note Text: Nursing Progress: Topic: RESTRAINT VIOLENT PATIENT NAME: Kari Allan PATIENT LOCATION: [id number]/[place] [id number] The patient demonstrates Combative Behavior, Risk of Harm to Others as evidenced by the following behaviors pt yelling and threatening staff, refusing to comply with staff direction, refusing to go back to room and posturing and clenching fists which pose an imminent danger to self or others. The following interventions were attempted but were not effective in protecting the patient's safety: Verbal De-escalation (patient cognitively intact), Verbal Redirection (patient cognitively impaired), Diversion Activities, Re-Orientation Methods Next, a comprehensive assessment was performed and warranted placing the patient in Physical Hold, the least restrictive restraint needed to protect the patient's safety. Ongoing safety assessments and evaluation for earliest removal of restraints will be performed. DATE: November 05, 2018 TIME: 2345 Ralph Yanez RN [facility] Protein mass conc HNO ID: [id number] Author: Ralph Sutton) BEN Yanez Service: Nursing Author Type: Registered Nurse Type: Nursing Progress Note Filed: 11/06/2018 6:26 AM Note Text: Nursing Progress Note Patient Name: Kari Allan Patient Location: [id number]/[place] [id number]* Daily Note: 0 Received report from previous shift. Pt seen out in the day area. Pt is restless, wandering, irritable but cooperative. Pt requested to have his food tray warmed up. Pt ate and was vomiting his food up in his bathroom 20 minutes later. collection officer called to get an order for Zofran. collection officer called back and put in order to allow zofran to be given early if needed. Pt vitals taken and pt took his scheduled meds. Pt resting comfortably in his bed. Seizure, Falls and 1:1 with staff precautions maintained. Pt safety checks done per unit protocol. Will continue to monitor. 0600 Pt seen sleeping in his room, in his bed for most of the night. Pt woke up a couple of times to use the bathroom. Pt would occasionally complain but would end up falling back asleep. Pt slept for 5.5 hours. This note was completed by: Ralph Yanez RN [facility] PROGRESSon 11-06-2018 Protein mass conc HNO ID: [id number] Author: Ajith Palomares Service: Psychiatry Author Type: Physician Type: Progress Notes Filed: 11/06/2018 9:37 AM Note Text: PROGRESS NOTE BEHAVIORAL HEALTH SERVICE DATE: 11/06/2018 SERVICE TIME: 11:14 AM Reviewed admitting history- Kari Allan is a 48 year old male with hx of anoxic brain injury, anoxic encephalopathy, pancreatitis, seizures, esphageal stricture, COPD, and DVT who was?brought [facility]for aggressive behaviors Remains on 05-31 with staff. Subjective Seen on rounds. Initially out in day area, then in his room. Out in day area now, appears more alert today. Mood good. A+0x1 . Nausea and labile affect persist. But overfall having a good day so far. RN called to request nutrution evaluation again 11/06/2018 Many recent prns. Will continue with inc nuedexta to bid 11/01/2018 - Inc seroquel 11/03/2018 and check Depakote level in am. Hold ativan 11/04/2018 Objective PHYSICAL EXAM: BP 105/86 Pulse 97 Temp 36.7 ?C (98.1 ?F) (Oral) Resp 18 Ht 177.8 cm (5' 10) Wt 90.7 kg (200 lb) SpO2 98% BMI 28.70 kg/m? MENTAL STATUS EXAMINATION: Appearance: Casually dressed and Disheveled Behavior: Disorganized; confused at times. Orientation: Person Speech/Language: soft, mumbled, difficult to understand at times Mood/Affect: Anxious and Distressed Thought Form: Perseveration Thought Content: Vague today. Suicidal Ideations: No suicidal ideation, intent or plan. Homicidal Ideations: No homicidal ideation, intent or plan. Insight: Insight is absent Judgment: Grossly impaired Memory/Cognition: Moderately Impaired Psychomotor: slowed NEW PROBLEMS ON UNIT SINCE LAST ENCOUNTER: None Current Facility-Administered Medications Medication Dose Route Frequency - nicotine polacrilex 2 mg gum (NICORETTE) 2 mg ORAL q 2 H PRN - ziprasidone 20 mg injection (GEODON) 20 mg INTRAMUSCULAR q 4 H PRN - acetaminophen 650 mg CUP (TYLENOL) 650 mg ORAL/FEEDING TUBE q 4 H PRN - bacitracin 500 unit/gram 1 application topical ointment 1 application TOPICAL PRN - escitalopram oxalate 10 mg tab(s) (LEXAPRO) 10 mg PEG DAILY - levETIRAcetam 750 mg CUP (KEPPRA) 750 mg ORAL/FEEDING TUBE BID - magnesium hydroxide 400 mg/5 mL 30 mL (MOM) 30 mL PEG DAILY PRN - melatonin 9 mg tab(s) 9 mg PEG AT BEDTIME - QUEtiapine 200 mg tab(s) (SEROquel) 200 mg PEG AT BEDTIME - thiamine 100 mg tab(s) (VITAMIN B1) 100 mg PEG DAILY - pantoprazole 40 mg granules for suspension (PROTONIX) 40 mg ORAL DAILY (6 AM) - ondansetron 4 mg tab(s) (ZOFRAN) 4 mg PEG q 6 H PRN - fludrocortisone 0.1 mg tab(s) (FLORINEF) 0.1 mg ORAL DAILY - folic acid 1 mg tab(s) 1 mg PEG DAILY - pyridoxine (vitamin B6) 25 mg tab(s) (VITAMIN B6) 25 mg PEG DAILY - cyanocobalamin 100 mcg tab(s) (VITAMIN B-12) 100 mcg PEG DAILY - dextromethorphan 20 mg - quiNIDine 10 mg capsule (NUEDEXTA) 1 capsule ORAL q 12 H - QUEtiapine 100 mg tab(s) (SEROquel) 100 mg ORAL/FEEDING TUBE BID - valproic acid 250 mg CUP (DEPAKENE) 250 mg ORAL QID DATA: Diagnostic tests reviewed for today's visit: Results for KARI ALLAN ( ) as of 10/31/2018 11:21 Ref. Range 10/28/2018 09:52 Valproic Acid Latest Ref Range: 50 - 100 ug/mL 14.1 (L) Assessment/Plan DIAGNOSIS: PRIMARY: Impulse-Control Disorder Intermittent Explosive Disorder Traumatic Brain Injury with Pseudobulbar Affect Polysubstance Abuse History , Treatment non-compliance Alcohol dep GAF:30-21 Behavior is considerably influenced by delusions or hallucination or serious impairment in communication or judgment RISK ASSESSMENT: Suicide: low Homicide: low Deliberate Self-Harm: low Aggression: moderate-high Imminent Physical Self Impairment: low INFORMED CONSENT: Yes, completed with the patient's guardian.. Discussed the risks, benefits and alternatives to the medication(s) recommended. Consent was given. INTERVENTION: Biological: Seroquel >100 mg BID Lexapro 10 mg daily Depakote Sprinkle to depakene > 250 mg QID 11/05/2018 Check level 11/04/2018 = 31 Nuedexta 20/10 mg capsule > bid Melatonin 9 mg at bedtime Prn atrivan now held. and ricky mederos Pt s/p MBSS and NET SOFTWARE ARCHITECT recommended a dysphagia level 2 diet with thin liquids and medications via PEG. Will advance diet accordingly. Collaborated with Dr. Cardona and orders written. Refer to note from 11/03 for assessment. ? Psychological: Encourage patient participation in unit activities: supportive therapy, group therapy and RT offered Social work for collateral from family, discharge planning and outpatient management Wound care management for peg tube site. DISCHARGE PLANNING: when stable return to Shelter Facility SIGNATURE: Ajith Palomares DO PATIENT NAME: Kari Allan DATE: November 06, 2018 TIME: 11:14 AM [facility] ALLIED HEALTHon 11-05-2018 ALLIED HEALTH HNO ID: [id number] Author: PENELOPE Arreaga Service: Recreational Therapy Author Type: Therapist Type: Allied Health Filed: 11/05/2018 2:58 PM Note Text: PROGRESS NOTE BEHAVIORAL HEALTH Topic of Note: Three Day Note SERVICE DATE: 11/05/2018 SERVICE TIME: 0255 The past couple days Patient has been on 1;1 for safety. Pt has been pleasant and shows some confusion and tends to need direction. Pt has been seclusive to self and his room today. Will continue to encourage attend and participate in all structured group SIGNATURE: PENELOPE Arreaga PATIENT NAME: Kari Allan DATE: November 05, 2018 TIME: 2:55 PM PAGER/CONTACT #: [facility] NURSING PROGon 11-05-2018 Protein mass conc HNO ID: [id number] Author: Leeann (Rn) BEN Huitron Service: Nursing Author Type: Registered Nurse Type: Nursing Progress Note Filed: 11/05/2018 7:04 PM Note Text: Nursing Progress Note Topic of Note: Daily Note Kari Allan [id number] This RN has reviewed the care and documentation provided by the TEAM PHYSICIAN from 15:00 to the current time and is in agreement with it. This note was completed by: Leeann Huitron RN [facility] Protein mass conc HNO ID: [id number] Author: José Miguel Wilson LPN Service: ? Author Type: LICENSED NURSE Type: Nursing Progress Note Filed: 11/05/2018 6:57 PM Note Text: Nursing Progress Note Patient Name: Kari Allan Patient Location: [id number]/[facility]* Daily Note: Needy on approach, unkempt appearance, no social interaction, medicine compliant, denies all, reluctantly cooperative with staff, frequently in and out of room, fair appetite, unseen emesis prior to medication, zofran providing partial nausea relief, tylenol providing generalized pain relief. This note was completed by: José Miguel Wilson LPN [facility] Protein mass conc HNO ID: [id number] Author: Leeann MedinaRn) BEN Huitron Service: Nursing Author Type: Registered Nurse Type: Nursing Progress Note Filed: 11/05/2018 2:29 PM Note Text: Nursing Progress Note Topic of Note: Daily Note Kari Allan [id number] Kari remains on 1:1 Observation with nursing staff d/t being a fall risk. He continues to get his meds via his PEG tube. He did get up with assistance at lunchtime and ate in the day area. This note was completed by: Leeann Huitron RN [facility] Protein mass conc HNO ID: [id number] Author: Roxana Sutton) BEN Walker Service: Nursing Author Type: Registered Nurse Type: Nursing Progress Note Filed: 11/05/2018 7:16 AM Note Text: Nursing Progress Note Patient Name: Kari Allan Patient Location: [id number]/[facility]* Daily Note: Assumed care of patient at 19:30 received report from previous shift. Nurse introduced self to patient, patient complained of stomach pain and nausea. Nurse administered PRN Zofran through peg. Patient can become loud, and uses abusive language at times but is redirectable. Patient was med compliant with all evening meds, no other complaints voiced. At 24:47 pt is up and complaining of nausea vomiting. Nurse administers prn Zofran per orders, takes VS pt is tachycardic hr 124. Nurse alerts collection officer. Patient is seen by Crew Person Kerri Cox CNP and is ordered Toradol. Nurse administers per order, no further complaints made by patient. Mr. Allan is currently sleeping in room no complaints voiced. Nurse will continue to monitor for safety per unit protocol. 0715: After patient received Toradol he slept without complaint 6 hrs. Patient is currently sleeping in room no complaints voiced. Nurse will continue to monitor for safety per unit protocol. This note was completed by: Roxana Walker RN [facility] PROGRESSon 11-05-2018 Protein mass conc HNO ID: [id number] Author: Ajith Palomares Service: Psychiatry Author Type: Physician Type: Progress Notes Filed: 11/05/2018 8:26 AM Note Text: PROGRESS NOTE BEHAVIORAL HEALTH SERVICE DATE: 11/05/2018 SERVICE TIME: 11:14 AM Reviewed admitting history- Kari Allan is a 48 year old male with hx of anoxic brain injury, anoxic encephalopathy, pancreatitis, seizures, esphageal stricture, COPD, and DVT who was?brought in [facility]by ambulance??for aggressive behaviors IMPRESSION: Patient presents with mild oropharyngeal dysphagia as characterized by delayed onset of swallowing and delayed epiglottic deflection resulting in mild laryngeal penetration of liquid when taking large/sequential sips. No tracheal aspiration observed. Remains on 05-31 with staff. Subjective Seen on rounds. Initially out in day area, then in his room. Out in day area now, appears groggy/sedated. Mumbled speech. Many recent prns. Around 0815 pt attempted to give this RN a hug, this RN and another staff member attempted to verbally redirect patient to maintain appropriate boundaries, pt became dysregulated and agitated, yelling, cussing and making verbal threats, fuck you, I'll fucking kill you, pt continued to escalate behavior by swing at staff and pushing staff, pt received PRN Ativan at 0834, with a positive effect, pt regained behavioral control and did not strike out towards staff the remainder of the shift. Will continue with inc nuedexta to bid 11/01/2018 - Inc seroquel 11/03/2018 and check Depakote level in am. Hold ativan 11/04/2018 Objective PHYSICAL EXAM: BP 90/60 Pulse 93 Temp 36.6 ?C (97.9 ?F) (Oral) Resp 16 Ht 177.8 cm (5' 10) Wt 90.7 kg (200 lb) SpO2 98% BMI 28.70 kg/m? MENTAL STATUS EXAMINATION: Appearance: Casually dressed and Disheveled Behavior: Disorganized; confused at times. Orientation: Person Speech/Language: soft, mumbled, difficult to understand at times Mood/Affect: Anxious and Distressed Thought Form: Perseveration Thought Content: Vague today. Suicidal Ideations: No suicidal ideation, intent or plan. Homicidal Ideations: No homicidal ideation, intent or plan. Insight: Insight is absent Judgment: Grossly impaired Memory/Cognition: Moderately Impaired Psychomotor: slowed NEW PROBLEMS ON UNIT SINCE LAST ENCOUNTER: None Current Facility-Administered Medications Medication Dose Route Frequency - nicotine polacrilex 2 mg gum (NICORETTE) 2 mg ORAL q 2 H PRN - ziprasidone 20 mg injection (GEODON) 20 mg INTRAMUSCULAR q 4 H PRN - acetaminophen 650 mg CUP (TYLENOL) 650 mg ORAL/FEEDING TUBE q 4 H PRN - bacitracin 500 unit/gram 1 application topical ointment 1 application TOPICAL PRN - escitalopram oxalate 10 mg tab(s) (LEXAPRO) 10 mg PEG DAILY - levETIRAcetam 750 mg CUP (KEPPRA) 750 mg ORAL/FEEDING TUBE BID - magnesium hydroxide 400 mg/5 mL 30 mL (MOM) 30 mL PEG DAILY PRN - melatonin 9 mg tab(s) 9 mg PEG AT BEDTIME - QUEtiapine 200 mg tab(s) (SEROquel) 200 mg PEG AT BEDTIME - thiamine 100 mg tab(s) (VITAMIN B1) 100 mg PEG DAILY - pantoprazole 40 mg granules for suspension (PROTONIX) 40 mg ORAL DAILY (6 AM) - ondansetron 4 mg tab(s) (ZOFRAN) 4 mg PEG q 6 H PRN - fludrocortisone 0.1 mg tab(s) (FLORINEF) 0.1 mg ORAL DAILY - valproic acid 125 mg CUP (DEPAKENE) 125 mg ORAL QID - folic acid 1 mg tab(s) 1 mg PEG DAILY - pyridoxine (vitamin B6) 25 mg tab(s) (VITAMIN B6) 25 mg PEG DAILY - cyanocobalamin 100 mcg tab(s) (VITAMIN B-12) 100 mcg PEG DAILY - dextromethorphan 20 mg - quiNIDine 10 mg capsule (NUEDEXTA) 1 capsule ORAL q 12 H - QUEtiapine 100 mg tab(s) (SEROquel) 100 mg ORAL/FEEDING TUBE BID DATA: Diagnostic tests reviewed for today's visit: Results for KARI ALLAN ( ) as of 10/31/2018 11:21 Ref. Range 10/28/2018 09:52 Valproic Acid Latest Ref Range: 50 - 100 ug/mL 14.1 (L) Assessment/Plan DIAGNOSIS: PRIMARY: Impulse-Control Disorder Intermittent Explosive Disorder Traumatic Brain Injury with Pseudobulbar Affect Polysubstance Abuse History , Treatment non-compliance Alcohol dep GAF:30-21 Behavior is considerably influenced by delusions or hallucination or serious impairment in communication or judgment RISK ASSESSMENT: Suicide: low Homicide: low Deliberate Self-Harm: low Aggression: moderate-high Imminent Physical Self Impairment: low INFORMED CONSENT: Yes, completed with the patient's guardian.. Discussed the risks, benefits and alternatives to the medication(s) recommended. Consent was given. INTERVENTION: Biological: Seroquel >100 mg BID Lexapro 10 mg daily Depakote Sprinkle to depakene > 250 mg QID 11/05/2018 Check level 11/04/2018 = 31 Nuedexta 20/10 mg capsule > bid Melatonin 9 mg at bedtime Prn atrivan now held. and ricky mederos Pt s/p MBSS and NET SOFTWARE ARCHITECT recommended a dysphagia level 2 diet with thin liquids and medications via PEG. Will advance diet accordingly. Collaborated with Dr. Cardona and orders written. Refer to note from 11/03 for assessment. ? Psychological: Encourage patient participation in unit activities: supportive therapy, group therapy and RT offered Social work for collateral from family, discharge planning and outpatient management Wound care management for peg tube site. DISCHARGE PLANNING: when stable return to Shelter Facility SIGNATURE: Ajith Palomares DO PATIENT NAME: Kari Allan DATE: November 05, 2018 TIME: 11:14 AM [facility] ALLIED HEALTHon 11-04-2018 ALLIED HEALTH HNO ID: [id number] Author: Cara Dupont Rt Service: Radiology Author Type: ? Type: Allied Health Filed: 11/04/2018 12:41 AM Note Text: Radiology Service Progress Note PATIENT NAME: Kari Allan DATE OF SERVICE: November 04, 2018 TIME: 12:41 AM PATIENT IDENTITY VERIFICATION COMPLETED USING TWO (2) METHODS: Patient confirmed name verbally and ID band matches.. PATIENT GENDER DATA: Male PATIENT RELEVANT IMPLANT DATA REVIEWED: Not Applicable RADIOLOGY DEPARTMENT: CT; Exam(s) Completed: Brain PERIPHERAL IV DATA: Not applicable SIGNED BY: Cara Dupont Rt November 04, 2018 12:41 AM [facility] Basic Metabolic Panlon 11-04 Anion gap molar conc 12 mmol/L Normal 0-15 [facility] Comment on above: Performed By: #### B MP ####[address] [place] [phone] Calcium mass conc 9.2 mg/dL Normal 8.5-10.2 [facility] Comment on above: Performed By: #### B MP ####[address] [place] [phone] Chloride molar conc 102 mmol/L Normal 98-107 [facility] Comment on above: Performed By: #### B MP ####[address] [place] [phone] CO2 molar conc 24 mmol/L Normal 22-29 [facility] Comment on above: Performed By: #### B MP ####[address] [place] [phone] Creatinine mass conc 0.86 mg/dL Normal 0.67-1.17 [facility] Comment on above: Performed By: #### B MP ####[address] [place] [phone] eGFR- Amer. >60 Normal >60 [facility] Comment on above: Performed By: #### B MP ####[address] [place] [phone] GFR/1.73 sq M predicted among non-blacks MDRD vol rate/area (S/P/Bld) mL/min/{1.73_m2} Normal >60 [facility] Comment on above: Result Comment: eGFR (Estimated GFR) Units of measure: mL/min/1.73 meters squared eGFR is derived from the 4 variable MDRD equation for glomerular filtration rate (GFR) based on a stable serum creatinine, gender, and age. According to KDOQI guidelines, an eGFR <60 mL/min/1.73m2 is sufficient to diagnose a patient with chronic kidney disease. Performed By: #### B MP ####[address] [place] [phone] Glucose mass conc 115 mg/dL High 74-99 [facility] Comment on above: Performed By: #### B MP ####[address] [place] [phone] Potassium molar conc 4.3 mmol/L Normal 3.4-4.5 [facility] Comment on above: Performed By: #### B MP ####[address] [place] [phone] Sodium molar conc 138 mmol/L Normal 136-144 [facility] Comment on above: Performed By: #### B MP ####[address] [place] [phone] Urea nitrogen mass conc 7 mg/dL Normal 6-20 [facility] Comment on above: Performed By: #### B MP ####[address] [phone] CASE MANAGEMon 11-04-2018 CASE MANAGEM HNO ID: [id number] Author: Maggie Villanueva (Sw) Service: ? Author Type: Payroll Master Type: Care Mgt Progress Note Filed: 11/04/2018 11:48 AM Note Text: BEHAVIORAL HEALTH SOCIAL WORK PROGRESS NOTE SERVICE DATE: 11/04/2018 SERVICE TIME: 11:47 AM MIRNA met with patient on unit to discuss care. Patient was pleasant however showed confusion. Patient attempted to follow entry writer with hands out to the side. Patient is on 1:1 for safety and tends to need redirection. Patient has been in day area with staff. When patient is stable he will return to [facility] SIGNATURE: DANIKA Steele PATIENT NAME: Kari Allan DATE: November 04, 2018 TIME: 11:37 AM Normal [facility] CBC and Differentialon 11-04 Abs Baso 0.04 k/uL Normal <0.11 [facility] Comment on above: Performed By: #### V PA #### [address] [place] [address] Abs Hamlin 0.71 k/uL Normal <0.87 [facility] Comment on above: Performed By: #### Oc PA #### [address] [place] [address] Abs Neut 3.16 k/uL Normal 1.45-7.50 [facility] Comment on above: Performed By: #### V PA #### [address] [place] [address] Absolute nRBC <0.01 Normal <0.01 [facility] Comment on above: Performed By: #### V PA #### [address] [place] [address] Basophils/100 WBC (Bld) 0.6 % Normal [facility] Comment on above: Performed By: #### V PA #### [address] [place] [address] DTYPE Auto Diff Normal [facility] Comment on above: Performed By: #### Oc PA #### [address] [place] [address] Eosinophils #/vol (Bld) 0.46 10*3/uL High <0.46 [facility] Comment on above: Performed By: #### Oc PA #### [address] [place] [address] Eosinophils/100 WBC (Bld) 6.8 % Normal [facility] Comment on above: Performed By: #### Oc PA #### [address] [place] [address] Erythrocyte distribution width Ratio (RBC) 13.4 % Normal 11.5-15.0 [facility] Comment on above: Performed By: #### Oc PA #### [address] [place] [address] Hematocrit Volume Fraction (Bld) 36.5 % Low 39.0-51.0 [facility] Comment on above: Performed By: #### Oc PA #### [address] [place] [address] Hemoglobin mass conc (Bld) 12.2 g/dL Low 13.0-17.0 [facility] Comment on above: Performed By: #### V PA #### [address] [place] [address] Lymphocytes #/vol (Bld) 2.34 10*3/uL Normal 1.00-4.00 [facility] Comment on above: Performed By: #### V PA #### [address] [place] [address] Lymphocytes/100 WBC (Bld) 34.8 % [facility] Comment on above: Performed By: #### V PA #### [facility] [address] [place] [address] MCH Entitic mass (RBC) 31.4 pG Normal 26.0-34.0 [facility] Comment on above: Performed By: #### V PA #### [facility] [address] [facility] [address] MCHC mass conc (RBC) 33.4 g/dL Normal 30.5-36.0 [facility] Comment on above: Performed By: #### V PA #### [facility] [address] [facility] [place] [address] MCV Entitic volume (RBC) 93.8 fL Normal 80.0-100.0 [facility] Comment on above: Performed By: #### V PA #### [facility] [address] [place] [address]., [place] [address] Monocytes/100 WBC (Bld) 10.6 % [facility] Comment on above: Performed By: #### V PA #### [facility] [address] [place] [address] Neutrophils/100 WBC (Bld) 47.2 % Normal [facility] Comment on above: Performed By: #### V PA #### [facility] [address] [place] [address] NRBCs 0.0 /100 WBC Normal 0 [facility] Comment on above: Performed By: #### V PA #### [facility] [address] [place] [address]., [place] [address] Platelet mean volume Entitic volume (Bld) 9.0 fL Normal 9.0-12.7 [facility] Comment on above: Performed By: #### V PA #### [facility] [address] [place] [address] [place] [address] Platelets #/vol (Bld) 301 10*3/uL Normal 150-400 [facility] Comment on above: Performed By: #### V PA #### [facility] [address] [facility] [place] [address] RBC #/vol (Bld) 3.89 10*6/uL Low 4.20-6.00 [facility] Comment on above: Performed By: #### V PA #### [facility] [address] [facility] [place] [address] WBC #/vol (Bld) 6.72 10*3/uL Normal 3.70-11.00 [facility] Comment on above: Performed By: #### V PA #### [facility] [address] [facility] [place] [address] CONSULTon 11-04-2018 CONSULT HNO ID: [id number] Author: Shelbie Burns (Pharmacist) Service: Pharmacy Author Type: Pharmacist Type: Consults Filed: 11/04/2018 12:45 AM Note Text: Clinical Pharmacy Consultation - Patient Fall PATIENT NAME: Kari Allan Date:November 04, 2018 Time of fall approximately 2325 Synopsis related to medication use: patient received the following evening medications: nuedexta (2131), levetiracetam 750 mg po (2129), melatonin 9 mh (2130), ondansetron 4 mg po (1999), quetiapine 200 mg (2131) AND valproic acid 125 mg po (2130). The only recent chagne in medications was the additional order for quetiapine 100 mg @ 0900 AND 1400. Patient only receive one 100 mg dose at 1327 today. Drug(s) of concern: none Drug(s) doses of concern: none Recommendations on drug therapy: Fall does not appear to be related to medication. Pharmacist: Shelbie Burns, Pharmacist [facility] CT BRAIN WO IVCONon 11-05-[address] BRAIN WO IVCON * * *Final Report* * * DATE OF EXAM: Nov 04 2018 12:40AM [facility] 0504 - CT BRAIN WO IVCON / PROCEDURE REASON: Head trauma, headache * * * * Physician Interpretation * * * * EXAMINATION: CT BRAIN WO IVCON CLINICAL HISTORY: Head trauma, headache TECHNIQUE: Serial axial images without IV contrast were obtained from the vertex to the foramen magnum. MQ: CTBWO_[id number] CT Dose-Length Product (DLP): 778 mGy*cm CT Dose Reduction Employed: [employer] COMPARISON: 08/07/2017, 09/18/2015 RESULT: Post-operative change: None. Acute change: No evidence of an acute infarct or other acute parenchymal process. Hemorrhage: No evidence of acute intracranial hemorrhage. Mass Lesion / Mass Effect: There is no evidence of an intracranial mass or extraaxial fluid collection. No significant mass effect. Chronic change: None apparent. Parenchyma: There is mild generalized volume loss. This has gradually become more pronounced since 09/18/2015. Ventricles: The lateral and third ventricles are mildly enlarged but the configuration suggests central white matter volume loss. Paranasal sinuses and skull base: Minor mucosal thickening is noted in the ethmoid sinuses. The skull base and imaged soft tissues are unremarkable. IMPRESSION: Mild parenchymal atrophy. No acute intracranial abnormality noted. Cycle Manager: JENNY Transcribe Date/Time: Nov 04 2018 12:42A Dictated by : FABRICIO DANG MD This examination was interpreted and the report reviewed and electronically signed by: FABRICIO DANG MD on Nov 04 2018 12:59AM EST [id number] [facility] NURSING PROGon 11-04-2018 Protein mass conc HNO ID: [id number] Author: Jodi (Rn) BEN Umaña Service: Behavioral Health Author Type: Registered Nurse Type: Nursing Progress Note Filed: 11/04/2018 6:37 PM Note Text: Nursing Progress Note Patient Name: Kari Allan Patient Location: [id number]/[facility]-015* Daily Note: Received report from previous shift and assumed care of patient at 0730. Pt is disheveled, unkempt, dressed in hospital attire. Pt was compliant with vitals, assessment, and medication administration this shift. Pt is labile, irritable, disorganized, nonsensical at times, friendly and pleasant on approach. Pt remains a 1:1 this shift and has needed frequent support from 1:1 to remain in behavioral control as well as reorient him to his surroundings, pt made multiple attempts to go into other patients' rooms thinking it was his room. Around 0815 pt attempted to give this RN a hug, this RN and another staff member attempted to verbally redirect patient to maintain appropriate boundaries, pt became dysregulated and agitated, yelling, cussing and making verbal threats, fuck you, I'll fucking kill you, pt continued to escalate behavior by swing at staff and pushing staff, pt received PRN Ativan at 0834, with a positive effect, pt regained behavioral control and did not strike out towards staff the remainder of the shift. Pt continues to need redirections for appropriate language but remains redirectable. Pt transitioned to a Dysphagia Level 2 diet this shift, pt ate well at dinner although needed frequent reminders to take small bites and drink liquids between each bite, pt was receptive to direction. Pt has intermittently been visible in the day area, social with select peers, and did not attend groups this shift. Pt denies SI, HI, AH, VH, and pain at this time. This note was completed by: Jodi Umaña RN [facility] Protein mass conc HNO ID: [id number] Author: Ana Luisa MedinaRn) BEN Peace Service: Nursing Author Type: Registered Nurse Type: Nursing Progress Note Filed: 11/04/2018 1:15 AM Note Text: Post Fall Assessment Kari Allan [id number] Witnessed: No How did fall occur: appeared to have fallen off toilet, sitting next to toilet Location: Bathroom Contributing factors: confused/disoriented Brief factual description: staff found patient sitting next to toilet in his bathroom. When asked what happened, patient stated, I don't know. I fell. 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 Cardona and [employer] FORMER/[employer] Notify family as appropriate: Karo Sanfodr (sister) - [phone] Post fall interventions: Fall Huddle Conducted and Patient Clinical Laboratory Scientist, 1:1 w/staff This note was completed by:Ana Luisa Peace RN [facility] NUTRITIONon 11-04-2018 NUTRITION HNO ID: [id number] Author: Serge Yost Service: Nutrition Therapy Author Type: Registered Dietitian Type: Nutrition Filed: 11/04/2018 10:52 AM Note Text: NUTRITION PROGRESS NOTE SERVICE DATE: 11/04/2018 SERVICE TIME: 10:50 AM Pt s/p MBSS and NET SOFTWARE ARCHITECT recommended a dysphagia level 2 diet with thin liquids and medications via PEG. Will advance diet accordingly. Collaborated with Dr. Cardona and orders written. Refer to note from 11/03 for assessment. SIGNATURE: Serge Yost RD PATIENT NAME: Kari Allan DATE: November 04, 2018 TIME: 10:51 AM PAGER/CONTACT #: [phone] [facility] PROGRESSon 11-04-2018 Protein mass conc HNO ID: [id number] Author: Ajith Palomares Service: Psychiatry Author Type: Physician Type: Progress Notes Filed: 11/04/2018 9:37 AM Note Text: PROGRESS NOTE BEHAVIORAL HEALTH SERVICE DATE: 11/04/2018 SERVICE TIME: 11:14 AM Reviewed admitting history- Kari Allan is a 48 year old male with hx of anoxic brain injury, anoxic encephalopathy, pancreatitis, seizures, esphageal stricture, COPD, and DVT who was?brought in [facility]for aggressive behaviors Subjective Seen on rounds. Initially out in day area, then in his room. Out in day area now, appears groggy/sedated. Mumbled speech. Many recent prns. per nursing- patient fell yesterday. CT brain no acute changes. Will continue with inc nuedexta to bid 11/01/2018 - Inc seroquel 11/03/2018 and check Depakote level in am. Hold ativan 11/04/2018 Objective PHYSICAL EXAM: BP 105/68 Pulse 105 Temp 36.8 ?C (98.2 ?F) (Oral) Resp 16 Ht 177.8 cm (5' 10) Wt 90.7 kg (200 lb) SpO2 98% BMI 28.70 kg/m? MENTAL STATUS EXAMINATION: Appearance: Casually dressed and Disheveled Behavior: Disorganized; confused at times. Orientation: Person Speech/Language: soft, mumbled, difficult to understand at times Mood/Affect: Anxious and Distressed Thought Form: Perseveration Thought Content: Vague today. Suicidal Ideations: No suicidal ideation, intent or plan. Homicidal Ideations: No homicidal ideation, intent or plan. Insight: Insight is absent Judgment: Grossly impaired Memory/Cognition: Moderately Impaired Psychomotor: slowed NEW PROBLEMS ON UNIT SINCE LAST ENCOUNTER: None Current Facility-Administered Medications Medication Dose Route Frequency - nicotine polacrilex 2 mg gum (NICORETTE) 2 mg ORAL q 2 H PRN - ziprasidone 20 mg injection (GEODON) 20 mg INTRAMUSCULAR q 4 H PRN - acetaminophen 650 mg CUP (TYLENOL) 650 mg ORAL/FEEDING TUBE q 4 H PRN - bacitracin 500 unit/gram 1 application topical ointment 1 application TOPICAL PRN - escitalopram oxalate 10 mg tab(s) (LEXAPRO) 10 mg PEG DAILY - levETIRAcetam 750 mg CUP (KEPPRA) 750 mg ORAL/FEEDING TUBE BID - magnesium hydroxide 400 mg/5 mL 30 mL (MOM) 30 mL PEG DAILY PRN - melatonin 9 mg tab(s) 9 mg PEG AT BEDTIME - QUEtiapine 200 mg tab(s) (SEROquel) 200 mg PEG AT BEDTIME - thiamine 100 mg tab(s) (VITAMIN B1) 100 mg PEG DAILY - pantoprazole 40 mg granules for suspension (PROTONIX) 40 mg ORAL DAILY (6 AM) - ondansetron 4 mg tab(s) (ZOFRAN) 4 mg PEG q 6 H PRN - fludrocortisone 0.1 mg tab(s) (FLORINEF) 0.1 mg ORAL DAILY - valproic acid 125 mg CUP (DEPAKENE) 125 mg ORAL QID - folic acid 1 mg tab(s) 1 mg PEG DAILY - pyridoxine (vitamin B6) 25 mg tab(s) (VITAMIN B6) 25 mg PEG DAILY - cyanocobalamin 100 mcg tab(s) (VITAMIN B-12) 100 mcg PEG DAILY - dextromethorphan 20 mg - quiNIDine 10 mg capsule (NUEDEXTA) 1 capsule ORAL q 12 H - QUEtiapine 100 mg tab(s) (SEROquel) 100 mg ORAL/FEEDING TUBE BID DATA: Diagnostic tests reviewed for today's visit: Results for KARI ALLAN ( ) as of 10/31/2018 11:21 Ref. Range 10/28/2018 09:52 Valproic Acid Latest Ref Range: 50 - 100 ug/mL 14.1 (L) Assessment/Plan DIAGNOSIS: PRIMARY: Impulse-Control Disorder Intermittent Explosive Disorder Traumatic Brain Injury with Pseudobulbar Affect Polysubstance Abuse History , Treatment non-compliance Alcohol dep GAF:30-21 Behavior is considerably influenced by delusions or hallucination or serious impairment in communication or judgment RISK ASSESSMENT: Suicide: low Homicide: low Deliberate Self-Harm: low Aggression: moderate-high Imminent Physical Self Impairment: low INFORMED CONSENT: Yes, completed with the patient's guardian.. Discussed the risks, benefits and alternatives to the medication(s) recommended. Consent was given. INTERVENTION: Biological: Seroquel >100 mg BID Lexapro 10 mg daily Depakote Sprinkles 125 mg QID to depakene 125 mg QID Check level 11/04/2018 Nuedexta 20/10 mg capsule > bid Melatonin 9 mg at bedtime Prn atrivan now held. and ricky mederos Psychological: Encourage patient participation in unit activities: supportive therapy, group therapy and RT offered Social work for collateral from family, discharge planning and outpatient management Wound care management for peg tube site. DISCHARGE PLANNING: when stable return to Shelter Facility SIGNATURE: Ajith Palomares DO PATIENT NAME: Kari Allan DATE: November 04, 2018 TIME: 11:14 AM [facility] Protein mass conc HNO ID: [id number] Author: Lisset Quinteros) Vignesh Service: Critical Care Author Type: Nurse Practitioner Type: Progress Notes Filed: 11/04/2018 12:07 AM Note Text: POST FALL ASSESSMENT PATIENT NAME: Kari Allan ASSESSMENT DATE: 11/04/2018 ASSESSMENT TIME: 12:02 AM Subjective Brief description of event: Per staff patient was found in his bathroom on the floor screaming for help. Patient refusing to assist in assessment. Fall witnessed: No How did fall occur: Fell off toilet Location of fall: Bathroom Contributing factors: lost balance and failure to call Medication List: Reviewed Current Facility-Administered Medications: - QUEtiapine 100 mg tab(s) (SEROquel) - dextromethorphan 20 mg - quiNIDine 10 mg capsule (NUEDEXTA) - folic acid 1 mg tab(s) - pyridoxine (vitamin B6) 25 mg tab(s) (VITAMIN B6) - cyanocobalamin 100 mcg tab(s) (VITAMIN B-12) - valproic acid 125 mg CUP (DEPAKENE) - fludrocortisone 0.1 mg tab(s) (FLORINEF) - nicotine polacrilex 2 mg gum (NICORETTE) - LORazepam 2 mg (ATIVAN) OR LORazepam 2 mg injection (ATIVAN) - ziprasidone 20 mg injection (GEODON) - acetaminophen 650 mg CUP (TYLENOL) - bacitracin 500 unit/gram 1 application topical ointment - escitalopram oxalate 10 mg tab(s) (LEXAPRO) - levETIRAcetam 750 mg CUP (KEPPRA) - magnesium hydroxide 400 mg/5 mL 30 mL (MOM) - melatonin 9 mg tab(s) - QUEtiapine 200 mg tab(s) (SEROquel) - thiamine 100 mg tab(s) (VITAMIN B1) - pantoprazole 40 mg granules for suspension (PROTONIX) - ondansetron 4 mg tab(s) (ZOFRAN) Physical Exam BP 90/70 Pulse 115 Temp 37.2 ?C (99 ?F) (Oral) Resp 18 Ht 177.8 cm (5' 10) Wt 90.7 kg (200 lb) SpO2 98% BMI 28.70 kg/m? Is the Patient Experiencing Pain: No: 0 on a scale of 0 to 10 General appearance: Well appearing, alert, in no acute distress, well-hydrated, well nourished. Skin: Skin color, texture, turgor normal, no suspicious rashes or lesions Head: Normocephalic, no masses, lesions, tenderness or abnormalities Eyes: Anicteric sclera. Pupils are equally round and reactive to light. Extraocular movements are intact. Ears: External ears normal, canals clear Nose/Sinuses: Nares normal, septum midline, mucosa normal, no drainage or sinus tenderness Oropharynx: Lips, mucosa, and tongue normal, teeth and gums normal, oropharynx normal Neck: Supple, no adenopathy; thyroid symmetric, normal size, no bruits Back: Normal exam Lungs: lungs clear to auscultation. No wheezing, rhonchi, rales Heart: RRR without murmur, gallop, or rubs. No ectopy Abdomen: Normal abdominal exam, Abdomen soft, non-tender. Bowel sounds normal. No masses, organomegaly Extremities: No deformities, edema, skin discoloration, clubbing or cyanosis. Good capillary refill. Musculoskeletal: No joint swelling, deformity, or tenderness Peripheral pulses: Normal Neuro: Gait normal. Reflexes normal and symmetric. Sensation grossly intact. Post-Fall Assessment/Plan Fall Injury: None observed Imaging: CT Scan of brain Labs: CBC, BMP and Coags High Fall Risk Other interventions: Sitter Patient Active Hospital Problem List: Impulse control disorder (10/27/2018) VTE Prophylaxis: Early Ambulation Family notified by: Nurse SIGNATURE: Lisset Medellin APRN.CNP PATIENT NAME: Kari Allan DATE: 11/04/2018 TIME: 12:02 AM PAGER #: Normal [facility] Protimeon 11-04-2018 Prothrombin time (PT) Coag time (PPP) 10.6 s Normal 9.7-13.0 [facility] Comment on above: Performed By: #### V PA #### [facility] [address] [place] [address] Prothrombin time (PT) Coag time (PPP) 1.0 s Normal 0.9-1.3 [facility] Comment on above: Result Comment: Maria Antonia min K Antagonist (VKA) Therapeutic Range: INR 2 to 3 (Target INR of 2.5) Note: For patients treated with VKA drugs, such as warfarin, the [employer] 2012 Guideline recommends a therapeutic INR range of 2 to 3 (target INR of 2.5). This recommendation includes high-risk patients with antiphospholipid syndrome with previous arterial or venous thromboembolism, current-generation mechanical or bioprosthetic aortic heart valve replacement. Note: Patients with mechanical aortic valve replacement and additional risk factors for thromboembolic events (atrial fibrillation, previous thromboembolism, LV dysfunction, hypercoagulable conditions) or an older generation mechanical AVR (i.e., ball in-Cage) or any mechanical MVR should have a INR therapeutic range of 2.5 to 3.5 (target INR of 3). Efra LALA, et al. Chest 2012, 141:7S-47S Desirae MOFFETT et al. [facility] 2017, 70: 252-289 Performed By: #### V AK #### [facility] [address] [place] [address] THERAPY NTon 11-04-2018 THERAPY NT HNO ID: [id number] Author: Jerry ([facility]) Huan Service: Speech/Swallow Author Type: Speech Language Pathologist Type: Therapy (PT/OT/Speech/Resp) Filed: 11/04/2018 10:38 AM Note Text: Speech Therapy MBSS Evaluation SERVICE DATE: 11/04/2018 SERVICE TIME: 0942 to 1005 ROOM: [place] [address] IMPRESSION: Patient presents with mild oropharyngeal dysphagia as characterized by delayed onset of swallowing and delayed epiglottic deflection resulting in mild laryngeal penetration of liquid when taking large/sequential sips. No tracheal aspiration observed. Patient presents with known esophageal dysphagia. Patient tolerated trials of puree and a trial of willie cracker. Esophageal sweep revealed delayed esophageal emptying in the upright position with some retrograde flow through what appears to be an esophageal stent. Esophageal retention successfully passed to the stomach with a liquid barium wash. Patient presents as favorable to safely tolerate diet advancement with the following textures and compensatory measures in place; Nursing Recommendations: Reinforce use of swallowing strategies Diet Recommendations: Dysphagia Level 2 (Dysphagia Mechanically Altered);Thin Liquids IDDSI Level 0(medication via PEG) Swallowing Precautions Recommendations: Alert (patient should be fully alert for P.O. Intake); Supervision/Assistance for meals; will need reminders to use compensatory measures Small Bite/Sip; Alternate bites and sips; Feed / Eat at a slow rate; Limit Distractions; Maintain an upright position 20-30 minutes following all oral intake; Oral Care before and after meals; Sit upright 90 degrees for all PO; Results and Recommendations Discussed With: Patient;Nurse Recommended Discharge Disposition: Subacute/SNF Justification For Post Acute Needs: May not tolerate higher intensity programing;Need for assistance may exceed support available Rehabilitation Precautions: Aspiration Precautions;Dysphagia;Cogni tive Linguistics Deficits;Modified Diet ASSESSMENT: Tolerated Full Session Prior to the start of the procedure, a time out was taken to verbally confirm the identification of the patient utilizing but not limited to name and date of and to verify a Modified Barium Swallow is being conducted according to standard operating procedure. Tolerated all consistencies. Denied s/s of dysphagia, food stuck sensation, nausea or discomfort. Laryngeal penetration eliminated when taking small single sips. Esophageal clearance achieved with alternating consistencies. Patient tolerated the study well. Instrumental Swallow Assessment Type: Modified Barium Swallow Study MBS Consistencies Tested: Thin Barium Liquids;Puree With Barium Paste;Solid With Barium Paste Oral Phase: Within Functional Limits Except Lip Closure: No labial escape/anterior loss of bolus Tongue Control During Bolus Hold: Escape to lateral buccal cavity and/or floor of mouth Bolus Preparation/Mastication: Disorganized mastication with solid pieces of bolus unchewed Bolus Transport/Lingual Motion: Repetitive/disorganized tongue motion (tongue pumping) Oral Residue: Residue collection on oral structure(cleared with second swallow) Initiation Of Pharyngeal Swallow: Bolus head at pit of pyriforms Pharyngeal Phase: Within Functional Limits Except Soft Palate Elevation: No bolus between soft palate/pharyngeal wall Laryngeal Elevation: Complete superior movement of thyroid cartilage with contact of arytenoids to epiglottic petiole Anterior Hyoid Excursion: Complete anterior movement Epiglottic Movement: Partial inversion(curls up against posterior pharyngeal wall) Laryngeal Vestibular Closure/Height of the Swallow: Complete - no air/contrast in laryngeal vestibule Pharyngeal Stripping Wave: Complete Pharyngeal Contraction (A/P View Only): Not tested Pharyngoesophageal Segment Opening: Partial distension/partial duration with partial obstruction of flow of bolus Tongue Base Retraction: Trace column of contrast or air between tongue base and pharyngeal wall Pharyngeal Residue: Trace residue within or on the pharyngeal structures Esophageal Clearance In An Upright Position: Additional Findings;Esophageal retention with retrograde flow below the pharyngoesophageal segment Esophageal Clearance Additional Findings: Slow motility;Delayed esophageal emptying(retention largely cleared to stomach with liquid wash) Penetration: Before the swallow Penetration With: Thin Liquids IDDSI Level 0(when taking large/sequential sips of thin barium) Penetration/Aspiration Scale: 2-Material enters the airway, remains above the vocal folds, and is ejected from the airway Goals for Plan of Care: Swallow Goals: Patient will tolerate Dysphagia Level 2 (Dysphagia Mechanically Altered), Thin Liquids IDDSI Level 0 diet consistency while utilizing compensatory/swallowing strategies given minimal cues in 100% of trials so that the patient will minimize the signs/symptoms of dysphagia. New goal Patient, Caregiver, Family will demonstrate adequate return of knowledge of all compensatory strategies/instruction to effectively assist the patient in immediate safety with oral intake and swallowing. Nurse restates Patient will participate in a Modified Barium Swallow Study (MBS) to thoroughly evaluate the oral and pharyngeal phase of the swallow, which cannot be substantiated through a clinical swallowing evaluation only. Through further diagnostic testing a definitive diagnosis/identification of the patient's current swallowing function and recommended treatment plan can be established. met Patient /Caregiver Goals: Eat/Drink Without Restrictions;Go Home Progress Toward Goals: Progressing as expected Speech Rehab Potential: Good PLAN: Treatment Frequency (times per week): 2 Current admission Treatment Interventions: Dysphagia Management Plan of Care Developed with: Patient;Caregiver TREATMENT INTERVENTIONS: Therapy Diagnosis: Dysphagia, oropharyngeal phase;Dysphagia, pharyngoesophageal phase Interventions Provided: Modified Barium Swallow Study (45305);Dysphagia Therapy (82320) $ Modified Barium Swallow Study (01670) Billed Units: 1 unit $ Dysphagia Therapy (83839) Billed Units: 1 unit Skilled Interventions: Provided education related to a typical swallowing mechanism in a compare and contrast manner compared to this patient's current skill set. , Educated and advised patient / caregiver on texture and liquid consistency recommendations., Instructed patient / caregiver on recommended compensatory strategies to maximize safety with oral intake while maintaining nutrition, hydration and medication stability. Total Treatment Time (minutes): 23 SUBJECTIVE: Current Hospital Course: Chart reviewed; receiving multiple medications, has had a couple of falls, one noted elevated temperature in vitals this admission Reason for Speech Therapy Consult: dysphagia, advance diet Relevant Past Medical History: anoxic brain injury, anoxic encephalopathy, pancreatitis, seizures, esphageal stricture, COPD, and DVT, esophageal stent, dysphagia Patient Report: reports vomiting after oral intake. Reports some pain with oral intake, points to throat, but denied pain during the study. Home Environment Prior Functional Level: Required Assistance Assistance Required With: Self Care;Safety Assistance Available: Other: See Comment(from SF) Prior Swallowing Function/Diet Textures: Full Liquids Please see discipline specific clinical documentation flowsheet for complete details for this therapy evaluation/treatment. SIGNATURE: Jerry Pressley CCC-NET SOFTWARE ARCHITECT PATIENT NAME: Kari Allan DATE: November 04, 2018 TIME: 10:33 AM [facility] Valproic Acidon 11-04-2018 Protein mass conc 31.9 ug/mL Low 50-100 [facility] Comment on above: Result Comment: Refe rence ranges and high/low indicator flags are provided as general guidelines only. The treating physician must determine appropriate target levels/dosing based on the specific clinical situation. Performed By: #### V PA ####[facility] [place], [place] [phone] XR MOD BARIUM SWALLOW W SPEParmjit Teddy 11-04-2018 XR MOD BARIUM SWALLOW W SPEECH * * *Final Report* * * DATE OF EXAM: Nov 04 2018 10:02AM MMX [id number] - XR MOD BARIUM SWALLOW W SPEECH / PROCEDURE REASON: Dysphagia, oropharyngeal, has attributable cause * * * * Physician Interpretation * * * * MODIFIED BARIUM SWALLOW - 11/04/2018 10:02 AM. PROCEDURE: The patient was examined in the sitting erect position with a speech pathologist in attendance. Fluoroscopy Time (minutes : seconds) = 3:24 Effective radiation dose (mGy) = 76.6 mGy CLINICAL INFORMATION: Refer to speech pathologist evaluation report. RESULT: Fluoroscopy was provided during performance of a swallowing evaluation by the speech pathologist. - IMPRESSION: Please refer to speech pathologist's reported assessment. Cycle Manager: JENNY Transcribe Date/Time: Nov 04 2018 10:05A Dictated by : ELIZA PRESCOTT MD This examination was interpreted and the report reviewed and electronically signed by: ELIZA PRESCOTT MD on Nov 04 2018 10:07AM EST [id number] [facility] CASE MANAGEMon 11-03-2018 CASE MANAGEM HNO ID: [id number] Author: Roselia Willams (Lsw) Service: Social Work Author Type: Payroll Master Type: Care Mgt Progress Note Filed: 11/03/2018 3:16 PM Note Text: BEHAVIORAL HEALTH SOCIAL WORK PROGRESS NOTE SERVICE DATE: 11/03/2018 SERVICE TIME: 3:01 PM Sw observed the pt sitting on the unit making conversation with staff passing him. The pt actions are impulsive. He received a PRN last night due to trying to leave the unit. The team would like to see the pt receiving fewer PRN's prior to him being d/c. Mirna did update Karo Sanford (sister/guardian/POA) - [phone] on 11-02-18. Mirna has been updating the [facility], [facility] via [employer]. SIGNATURE: DANIKA Suero PATIENT NAME: Kari Allan DATE: November 03, 2018 TIME: 3:01 PM [facility] NURSING PROGon 11-03-2018 Protein mass conc HNO ID: [id number] Author: Ana Luisa (Rn) BEN Peace Service: Nursing Author Type: Registered Nurse Type: Nursing Progress Note Filed: 11/04/2018 6:36 AM Note Text: Nursing Progress Note Patient Name: Kari Allan Patient Location: [place] [address]* Daily Note: 1900 - Assumed care of patient. Received report on patient from previous staff. Patient visible in the day area wandering from seat to seat at the start of shift. Patient's gait is steady. Patient is disheveled, wearing street clothes. Patient denies suicidal and homicidal ideations and auditory and visual hallucinations. Patient's affect is blunted and mood irritable. Patient remains loud, boisterous, and intrusive. He was observed cursing at other peers, but was redirectable by this RN and staff. Patient appears to be preoccupied and irritable, his speech is nonsensical at times. Patient was observed closely for behavior, however, after discussing unit expectations and being redirected, he was able to remain in control of his behavior this shift. 1999 - Patient c/o tummy aching and feeling like I want to throw up. Patient's abdomen was soft upon palpitation. He was given prn Zofran 4 mg (PEG), after which he vomited in the toilet after 10 minutes. Vomit was mucus and some jello, which he ate for evening snack. Encouraged patient to remain in bed while Zofran takes effect. Patient tried to manage, however, was seen up and walking without issue around the day area. 2132 - Patient was compliant with his HS medications and VS. Patient was able to remain in bed to rest after receiving his HS medications. Will continue to monitor. Patient's behavior has been in control. Safety measures and patient checks per unit protocol, will continue to monitor. 2300 - Observed patient sleeping in his room. 2325 - Patient yelled out from his bedroom. Staff found him sitting on the floor next to the toilet of his bathroom. When asked what happened, patient stated, I don't know. I fell. Patient was unable to describe what lead up to his fall, or why he fell. Patient denied hitting his head to this RN, however, reported to TUBULAR STOCK GLASS BULB MACHINE FORMER/O he hit his head. CT scan STAT was ordered as well as 1:1 with staff, per TUBULAR STOCK GLASS BULB MACHINE FORMER/O. VS were obtained and charted. Dr. Cardona, [facility]. NOM, Asst. Nurse Repeater Operator, Pharmacy, and guardian were notified, per protocol. 0040 - Patient taken to CT with security systems sales representative escort. 0052 - Patient returned to the unit and went back to sleep in his room. Will continue to monitor. 0116 - Patient escorted to bathroom with staff assistance. 0443 - Patient drowsy out of his room c/o tummy aches. Auscultated patient's abdomen - slow peristalsis sounds. Patient does not know his last BM. Prior to administering prn MOM via PEG, 65 cc residual was obtained. MHO was called to confirm if MOM was okay to administer. MHO confirmed to administer. 30 cc water was given prior to and after administration. Patient tolerated it well. Encouraged patient to sit up for 30 minutes prior to laying back down. 0507 - Patient was observed to be walking the hallways escorted by 1:1 staff. Patient appears restless, yet drowsy. Will continue to monitor. 0615 - Patient observed forced vomiting after drinking 2 oz of apple juice. 0630 - Patient slept for approximately 5 hours. Patient did not receive Protonix 40 mg (PO) d/t nausea/vomiting. Patient's behavior has been in control throughout the shift. This note was completed by: Ana Luisa Peace RN [facility] Protein mass conc HNO ID: [id number] Author: Meño MedinaRn) BEN Morris Service: Nursing Author Type: Registered Nurse Type: Nursing Progress Note Filed: 11/03/2018 6:20 PM Note Text: Post Fall Assessment Kari Allan [id number] Witnessed: Yes How did fall occur: Getting out of bed/chair Location: day area Contributing factors: confused/disoriented Brief factual description: slid off chair (*Document vital signs, neuro checks, blood sugars in the appropriate flow sheet.) Initial Physical Assessment Injury: No Patient hit head: No Immediate actions taken: No Action Name of LIP notified: susan Notify family as appropriate: guardian Post fall interventions: Fall Huddle Conducted and Frequent Observation This note was completed by:Meño Morris RN [facility] Protein mass conc HNO ID: [id number] Author: Meño MedinaRn) BEN Morris Service: Nursing Author Type: Registered Nurse Type: Nursing Progress Note Filed: 11/03/2018 5:18 PM Note Text: Nursing Progress Note Patient Name: Kari Allan Patient Location: [place] [address] [address]* Daily Note: 1620 - Assumed care of patient at 1530. Patient is intrusive with visitors, loud nonsensical outbursts at times. Requires regular redirection. 1708 - Patient slid off day area chair. Witnessed fall. Patient did not hit head. No injury observed. MHO and NM notified. Guardian notified. This note was completed by: Meño Morris RN [facility] Protein mass conc HNO ID: [id number] Author: Lynn MedinaRn) BEN Polk Service: Nursing Author Type: Registered Nurse Type: Nursing Progress Note Filed: 11/03/2018 2:36 PM Note Text: Nursing Progress Note Patient Name: Kari Allan Patient Location: [id number]* Daily Note: Patient has been up intermittently on the unit. He has been compliant with his tube feeds and full liquid diet. Continues to make inappropriate statement to younger staff member You got some nice Tits Easily redirected. Around 1430 came up to window stated I want to go home. Increasing agitated, restless and was prn with Ativan 2 mg Im in left deltoid. He is schedule for a Barium Swallow possibly tomorrow. Now, sitting in the hallway self talking to himself. This note was completed by: Lynn Polk RN [facility] NUTRITIONon 11-03-2018 NUTRITION HNO ID: [id number] Author: Serge Yost Service: Nutrition Therapy Author Type: Registered Dietitian Type: Nutrition Filed: 11/03/2018 1:21 PM Note Text: NUTRITION THERAPY SCREENING NOTE SERVICE DATE: 11/03/2018 SERVICE TIME: 12:45 PM NUTRITION CARE PLAN Patient's weight is stable and nutritional intake is adequate. Patient is not at risk for malnutrition at this time. Intervention: - Continue FL diet - Continue Ensure Enlive TID - Advance diet per NET SOFTWARE ARCHITECT pending MBSS Collaborated with Dr. Cardoan and orders written. Discharge Nutrition Recommendations: To be determined Per HPI: 48 yo M admitted for agitation. 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 Hx of respiratory failure secondary to opioid drug overdose, alcohol abuse. ?He has a history of pancreatitis and has a G-tube in place. Pt tolerating FL diet and supplements. NET SOFTWARE ARCHITECT evaluated patient and recommend an MBSS - discussed with Dr. Cardona. OK to order and advance diet pending NET SOFTWARE ARCHITECT recommendations. Discussed with NET SOFTWARE ARCHITECT and RN. Pt is excited for the test and ability to eat - anticipate he will pass and no longer require meds via PEG. Consider PEG removal pending test. Orders Placed This Encounter DIET LIQUID Standing Status: Standing Number of Occurrences: 1 Order Specific Question: Liquid Diet Answer: FULL LIQUID Order Specific Question: FOR RDs ONLY Provider Collaborated With Answer: DAVIS MOREL (LUISA) [[id number]] Supplement 1 Frequency: 1. BREAKFAST; 5. DINNER Supplement 2 Frequency: 3. LUNCH Supplement 1: ENSURE ENLIVE CHOCOLATE Supplement 2: ENSURE ENLIVE VANILLA There are no questions and answers to display. There are no questions and answers to display. Nutritional Intake Prior to Admission: Unable to determine Anthropometrics: Height: 177.8 cm (5' 10) Admission Weight: 90.7 kg (200 lb) Current Weight: 90.7 kg (200 lb) Body mass index is 28.7 kg/m?. overweight Weight has not changed significantly Last Wt 10/27/18 : 90.7 kg (200 lb) 10/26/18 : 90.7 kg (200 lb) 08/31/18 : 83.1 kg (183 lb 3.2 oz) 01/04/18 : 57.6 kg (127 lb) 12/26/17 : 56.7 kg (125 lb) 11/30/17 : 57.6 kg (127 lb) 11/01/17 : 53.5 kg (118 lb) 10/06/17 : 52.8 kg (116 lb 8 oz) 09/28/17 : 50.1 kg (110 lb 7.2 oz) 09/21/17 : 53.8 kg (118 lb 9.6 oz) 08/07/17 : 52.2 kg (115 lb) 08/06/17 : 51.5 kg (113 lb 8.6 oz) 07/13/17 : 53.1 kg (117 lb) 04/23/17 : 53.3 kg (117 lb 9.6 oz) 04/08/17 : 54.3 kg (119 lb 11.4 oz) 04/05/17 : 54.3 kg (119 lb 11.4 oz) 03/16/17 : 56.8 kg (125 lb 3.5 oz) 01/15/17 : 60.7 kg (133 lb 14.4 oz) 09/18/16 : 64.9 kg (143 lb) 09/10/16 : 64.4 kg (142 lb) MNT Billing Type: Re-assess/15 min 2 units SIGNATURE: Serge Yost RD PATIENT NAME: Kari Allan DATE: November 03, 2018 TIME: 1:01 PM PAGER: [phone] [facility] PROGRESSon 11-03-2018 Protein mass conc HNO ID: [id number] Author: Nimco Domingo APRN.CNP Service: Critical Care Author Type: Nurse Practitioner Type: Progress Notes Filed: 11/03/2018 5:27 PM Note Text: POST FALL ASSESSMENT PATIENT NAME: Kari Allan ASSESSMENT DATE: 11/03/2018 ASSESSMENT TIME: 5:18 PM Subjective Brief description of event: Pt had a witnessed fall while in common area. Per RN, pt was attempting to sit on a chair with wheels. The chair slid out from under him and pt fell to floor onto his bottom. He broke his fall with his hands. He did not hit his head. No LOC with fall. Fall witnessed: Yes How did fall occur: Getting into bed/chair Location of fall: common area Contributing factors: lost balance Medication List: Reviewed Current Facility-Administered Medications: - QUEtiapine 100 mg tab(s) (SEROquel) - dextromethorphan 20 mg - quiNIDine 10 mg capsule (NUEDEXTA) - folic acid 1 mg tab(s) - pyridoxine (vitamin B6) 25 mg tab(s) (VITAMIN B6) - cyanocobalamin 100 mcg tab(s) (VITAMIN B-12) - valproic acid 125 mg CUP (DEPAKENE) - fludrocortisone 0.1 mg tab(s) (FLORINEF) - nicotine polacrilex 2 mg gum (NICORETTE) - LORazepam 2 mg (ATIVAN) OR LORazepam 2 mg injection (ATIVAN) - ziprasidone 20 mg injection (GEODON) - acetaminophen 650 mg CUP (TYLENOL) - bacitracin 500 unit/gram 1 application topical ointment - escitalopram oxalate 10 mg tab(s) (LEXAPRO) - levETIRAcetam 750 mg CUP (KEPPRA) - magnesium hydroxide 400 mg/5 mL 30 mL (MOM) - melatonin 9 mg tab(s) - QUEtiapine 200 mg tab(s) (SEROquel) - thiamine 100 mg tab(s) (VITAMIN B1) - pantoprazole 40 mg granules for suspension (PROTONIX) - ondansetron 4 mg tab(s) (ZOFRAN) Physical Exam BP 108/82 Pulse 106 Temp 36.9 ?C (98.4 ?F) (Oral) Resp 18 Ht 177.8 cm (5' 10) Wt 90.7 kg (200 lb) SpO2 96% BMI 28.70 kg/m? Is the Patient Experiencing Pain: Yes: PAIN CHARACTER: aching Physical Exam Constitutional: He is well-developed, well-nourished, and in no distress. HENT: Head: Normocephalic. Eyes: Pupils are equal, round, and reactive to light. Neck: Normal range of motion. Cardiovascular: Normal heart sounds. Pulmonary/Chest: Effort normal and breath sounds normal. Abdominal: Soft. Musculoskeletal: Normal range of motion. Neurological: He is alert. Skin: Skin is warm and dry. Post-Fall Assessment/Plan Fall Injury: No. Pt endorses pain on bilateral hands. Has full ROM, no bruising on assessment. High Fall Risk Other interventions: Ice to affected area Patient Active Hospital Problem List: Impulse control disorder (10/27/2018) VTE Prophylaxis: Other n/a Family notified by: Nurse SIGNATURE: Nimco Domingo APRN.CNP PATIENT NAME: Kari Allan DATE: 11/03/2018 TIME: 5:18 PM PAGER #: [phone] [facility] Protein mass conc HNO ID: [id number] Author: Ajith Palomares Service: Psychiatry Author Type: Physician Type: Progress Notes Filed: 11/03/2018 9:35 AM Note Text: PROGRESS NOTE BEHAVIORAL HEALTH SERVICE DATE: 11/02/2018 SERVICE TIME: 11:14 AM Reviewed admitting history- Kari Allan is a 48 year old male with hx of anoxic brain injury, anoxic encephalopathy, pancreatitis, seizures, esphageal stricture, COPD, and DVT who was?brought [facility] to [facility]by ambulance[facility]for aggressive behaviors Subjective Seen on rounds. Initially out in day area, then in his room. Resting in bed now, appears groggy/sedated. Mumbled speech. Many recent prns. Per nursing- Daily Note:Prn 20 mg geodon and prn 2 mg ativan given IM at 1619 for agitation and anxiety. He went to the entrance and attempted to escape. He became verbally abusive. Difficult to redirect. Will continue with inc nuedexta to bid 11/01/2018 - Inc seroquel 11/03/2018 and check Depakote level in am. Objective PHYSICAL EXAM: BP 108/82 Pulse 106 Temp 36.9 ?C (98.4 ?F) (Oral) Resp 18 Ht 177.8 cm (5' 10) Wt 90.7 kg (200 lb) SpO2 96% BMI 28.70 kg/m? MENTAL STATUS EXAMINATION: Appearance: Casually dressed and Disheveled Behavior: Disorganized; confused at times. Orientation: Person Speech/Language: soft, mumbled, difficult to understand at times Mood/Affect: Anxious and Distressed Thought Form: Perseveration Thought Content: Vague today. Suicidal Ideations: No suicidal ideation, intent or plan. Homicidal Ideations: No homicidal ideation, intent or plan. Insight: Insight is absent Judgment: Grossly impaired Memory/Cognition: Moderately Impaired Psychomotor: slowed NEW PROBLEMS ON UNIT SINCE LAST ENCOUNTER: None Current Facility-Administered Medications Medication Dose Route Frequency - nicotine polacrilex 2 mg gum (NICORETTE) 2 mg ORAL q 2 H PRN - LORazepam 2 mg (ATIVAN) 2 mg ORAL q 4 H PRN Or - LORazepam 2 mg injection (ATIVAN) 2 mg INTRAMUSCULAR q 4 H PRN - ziprasidone 20 mg injection (GEODON) 20 mg INTRAMUSCULAR q 4 H PRN - acetaminophen 650 mg CUP (TYLENOL) 650 mg ORAL/FEEDING TUBE q 4 H PRN - bacitracin 500 unit/gram 1 application topical ointment 1 application TOPICAL PRN - escitalopram oxalate 10 mg tab(s) (LEXAPRO) 10 mg PEG DAILY - levETIRAcetam 750 mg CUP (KEPPRA) 750 mg ORAL/FEEDING TUBE BID - magnesium hydroxide 400 mg/5 mL 30 mL (MOM) 30 mL PEG DAILY PRN - melatonin 9 mg tab(s) 9 mg PEG AT BEDTIME - QUEtiapine 200 mg tab(s) (SEROquel) 200 mg PEG AT BEDTIME - thiamine 100 mg tab(s) (VITAMIN B1) 100 mg PEG DAILY - pantoprazole 40 mg granules for suspension (PROTONIX) 40 mg ORAL DAILY (6 AM) - ondansetron 4 mg tab(s) (ZOFRAN) 4 mg PEG q 6 H PRN - fludrocortisone 0.1 mg tab(s) (FLORINEF) 0.1 mg ORAL DAILY - valproic acid 125 mg CUP (DEPAKENE) 125 mg ORAL QID - folic acid 1 mg tab(s) 1 mg PEG DAILY - pyridoxine (vitamin B6) 25 mg tab(s) (VITAMIN B6) 25 mg PEG DAILY - cyanocobalamin 100 mcg tab(s) (VITAMIN B-12) 100 mcg PEG DAILY - dextromethorphan 20 mg - quiNIDine 10 mg capsule (NUEDEXTA) 1 capsule ORAL q 12 H - QUEtiapine 100 mg tab(s) (SEROquel) 100 mg ORAL/FEEDING TUBE BID DATA: Diagnostic tests reviewed for today's visit: Results for KARI ALLAN ( ) as of 10/31/2018 11:21 Ref. Range 10/28/2018 09:52 Valproic Acid Latest Ref Range: 50 - 100 ug/mL 14.1 (L) Assessment/Plan DIAGNOSIS: PRIMARY: Impulse-Control Disorder Intermittent Explosive Disorder Traumatic Brain Injury with Pseudobulbar Affect Polysubstance Abuse History , Treatment non-compliance Alcohol dep GAF:30-21 Behavior is considerably influenced by delusions or hallucination or serious impairment in communication or judgment RISK ASSESSMENT: Suicide: low Homicide: low Deliberate Self-Harm: low Aggression: moderate-high Imminent Physical Self Impairment: low INFORMED CONSENT: Yes, completed with the patient's guardian.. Discussed the risks, benefits and alternatives to the medication(s) recommended. Consent was given. INTERVENTION: Biological: Seroquel >100 mg BID Lexapro 10 mg daily Depakote Sprinkles 125 mg QID to depakene 125 mg QID Check level 11/04/2018 Nuedexta 20/10 mg capsule > bid Melatonin 9 mg at bedtime Prn atrivan and geodon im Psychological: Encourage patient participation in unit activities: supportive therapy, group therapy and RT offered Social work for collateral from family, discharge planning and outpatient management Wound care management for peg tube site. DISCHARGE PLANNING: when stable return to Shelter Facility SIGNATURE: Ajith Palomares DO PATIENT NAME: Kari Allan DATE: November 03, 2018 TIME: 11:14 AM [facility] ALLIED HEALTHon 11-02-2018 ALLIED HEALTH HNO ID: [id number] [facility] LAURA Levine Service: Recreational Therapy Author Type: Therapist Type: Allied Health Filed: 11/02/2018 3:44 PM Note Text: PROGRESS NOTE BEHAVIORAL HEALTH Topic of Note: Three Day Note SERVICE DATE: 11/02/2018 SERVICE TIME: 3:30pm Patient has attended only two structured RT groups in the past three days. In the one group attended three days ago, he was a very passive participant. In today LLOYD's group this afternoon, he was much more active and alert. His comments were appropriate and when asking questions, he was able to formulate clear, organized statements. He remains disheveled. He was able to tolerate well the entire one hour session. Groups will continue to be encouraged in order to promote healthy coping and social skills. SIGNATURE: Sr. Radha Levine, [facility] PATIENT NAME: Kari Allan DATE: November 02, 2018 TIME: 3:30 PM PAGER/CONTACT #: [facility] CASE MANAGEMon 11-02-2018 CASE MANAGEM HNO ID: [id number] Author: Roselia Willams (Lsw) Service: Social Work Author Type: Payroll Master Type: Care Mgt Progress Note Filed: 11/02/2018 1:23 PM Note Text: BEHAVIORAL HEALTH SOCIAL WORK PROGRESS NOTE SERVICE DATE: 11/02/2018 SERVICE TIME: 12:23 PM Sw met with the pt today while rounding with the doctor. The pt is having memory issues. The pt had a poor evening and was given a PRN. He was oriented that he has been living at [facility]. The pt did not object to returning there upon d/c. The team would like to see the pt receiving fewer PRN's prior to him being d/c. Karo Sanford (sister/guardian/POA) - [phone] was called and sw updated her to the pt's condition and d/c plans. SIGNATURE: DANIKA Suero PATIENT NAME: Kari Allan DATE: November 02, 2018 TIME: 12:23 PM [facility] NURSING PROGon 11-02-2018 Protein mass conc HNO ID: [id number] Author: Nasreen Castañeda LPN Service: Nursing Author Type: LICENSED NURSE Type: Nursing Progress Note Filed: 11/02/2018 9:52 PM Note Text: Nursing Progress Note Patient Name: Kari Allan Patient [place] [id number][place] [place] Daily Note: Received report from previous shift and assumed care. Patient is alert and oriented to person and place. He is disheveled and unkempt dressed in hospital garb. His affect is flat and his speech is garbled and slurred. He was pleasant with me and was agreeable to taking his bedtime medication via his peg tube. He requested and was given zofran for complaints of nausea after attempting to eat a sandwich and then vomiting it up. His tube was flushed with 30 cc of water before and after receiving his medication. He had no residual before or after. 2150 in the dining area watching television. This note was completed by: Nasreen Castañeda LPN [facility] Protein mass conc HNO ID: [id number] Author: Horacio Blake LPN Service: ? Author Type: LICENSED NURSE Type: Nursing Progress Note Filed: 11/02/2018 5:45 PM Note Text: Nursing Progress Note Patient Name: Kari Allan Patient [facility] [id number][facility] [place] Daily Note:Prn 20 mg geodon and prn 2 mg ativan given IM at 1619 for agitation and anxiety. He went to the entrance and attempted to escape. He became verbally abusive. Difficult to redirect. This note was completed by: Horacio Blake LPN [facility] Protein mass conc HNO ID: [id number] Author: Judah MedinaRn) BEN Beckett Service: ? Author Type: Registered Nurse Type: Nursing Progress Note Filed: 11/02/2018 2:21 PM Note Text: Nursing Progress Note Patient Name: Kari Allan Patient Location: [id number][place] [place] Daily Note: 1238 Report received from previous shift, pt visible on unit at times, flat affect, disheveled, slurred speech, oriented to himself only, needs complete assist to get dressed, toileted q 2 hours and remained continent, preoccupied and internally stimulated, poor insight. Pt ate meals with some direction of staff, medication compliant via PEG Tube, denies hallucinations, denies suicidal or homicidal ideation, no somatic complaints noted, assault precautions maintained, q 15 minute checks for safety and protection, will continue to monitor for any change in status. This note was completed by: Judah Beckett RN [facility] Protein mass conc HNO ID: [id number] Author: Ralph (Rn) BEN Yanez Service: Nursing Author Type: Registered Nurse Type: Nursing Progress Note Filed: 11/02/2018 6:11 AM Note Text: Nursing Progress Note Patient Name: Kari Allan Patient Location: [id number][place] [place] Daily Note: 2039 Received report from previous shift. Pt seen out in the day area. Pt was sitting and grabbed some chips off the snack cart. Pt was told he is not allowed to have chips since he is on a liquid diet only. The chips were taken away from the pt by this author. The pt then followed this author to another patient's room and pushed the computer and began to threaten this author and other staff. Pt was would not comply with instruction from staff or security and was placed in a physical in order to be taken to the seclusion room. The seclusion room was unlocked and pt came out after about 10 minutes back there. Pt was sitting in the day area when he started to become agitated again and began to curse at staff and other patients. Pt was redirectable to his room at this time and was instructed that he would need to stay in his room. Pt was refusing and threatening this author. This author asked the pt if he was ready to take his scheduled meds and the pt refused his scheduled meds. The pt instead received PRN ativan 2 mg IM and 20 mg geodon IM at 2120 due to aggressive behavior. Fall precautions maintained. Pt safety checks done per unit protocol. Will continue to monitor. 0340 Pt woke up being loud. Pt asked to be quiet due to other patients sleeping. Pt being dismissive. Pt was told he would need to stay in his room for the remainder of the night due to aggressive behavior displayed. Pt said he didn't have to listen to what staff says. Pt given 2 mg ativan IM due to behavior and non-compliance with instruction at 0348. 0600 Pt seen sleeping on and off in his room all night. Pt would come out of his room and be irritable and non-compliant with instruction. Pt refused morning scheduled med and to have his wrist band scanned. Pt slept for 6.5 hours. This note was completed by: Ralph Yanez RN [facility] PROGRESSon 11-02-2018 Protein mass conc HNO ID: [id number] Author: Ajith Palomares Service: Psychiatry Author Type: Physician Type: Progress Notes Filed: 11/02/2018 11:15 AM Note Text: PROGRESS NOTE BEHAVIORAL HEALTH SERVICE DATE: 11/02/2018 SERVICE TIME: 11:14 AM Subjective im ok calm and pleasant this am. Resting in bed. Monotone. Soft spoken. Denies suicidal ideations or homicidal ideations. Denies auditory hallucinations or visual hallucinations. Poor insight. Many prns. Will inc nuedexta to bid 11/01/2018 - missed dose yesterday. Objective PHYSICAL EXAM: BP 108/82 Pulse 106 Temp 36.9 ?C (98.4 ?F) (Oral) Resp 18 Ht 177.8 cm (5' 10) Wt 90.7 kg (200 lb) SpO2 96% BMI 28.70 kg/m? MENTAL STATUS EXAMINATION: Appearance: Casually dressed and Disheveled Behavior: Disorganized; confused Orientation: Person Speech/Language: choppy speech; focused on abdominal discomfort Mood/Affect: Anxious and Distressed Thought Form: Perseveration Thought Content: Eyes tend to move repeatedly left to right at intervals: denies hallucination; can be paranoid at times and becomes agitated with peer group or staff Suicidal Ideations: No suicidal ideation, intent or plan. Homicidal Ideations: No homicidal ideation, intent or plan. Insight: Insight is absent Judgment: Grossly impaired Memory/Cognition: Moderately Impaired Psychomotor: Agitated NEW PROBLEMS ON UNIT SINCE LAST ENCOUNTER: None Current Facility-Administered Medications Medication Dose Route Frequency - nicotine polacrilex 2 mg gum (NICORETTE) 2 mg ORAL q 2 H PRN - LORazepam 2 mg (ATIVAN) 2 mg ORAL q 4 H PRN Or - LORazepam 2 mg injection (ATIVAN) 2 mg INTRAMUSCULAR q 4 H PRN - ziprasidone 20 mg injection (GEODON) 20 mg INTRAMUSCULAR q 4 H PRN - acetaminophen 650 mg CUP (TYLENOL) 650 mg ORAL/FEEDING TUBE q 4 H PRN - bacitracin 500 unit/gram 1 application topical ointment 1 application TOPICAL PRN - escitalopram oxalate 10 mg tab(s) (LEXAPRO) 10 mg PEG DAILY - levETIRAcetam 750 mg CUP (KEPPRA) 750 mg ORAL/FEEDING TUBE BID - magnesium hydroxide 400 mg/5 mL 30 mL (MOM) 30 mL PEG DAILY PRN - melatonin 9 mg tab(s) 9 mg PEG AT BEDTIME - QUEtiapine 200 mg tab(s) (SEROquel) 200 mg PEG AT BEDTIME - QUEtiapine 50 mg tablet (SEROquel) 50 mg ORAL/FEEDING TUBE BID - thiamine 100 mg tab(s) (VITAMIN B1) 100 mg PEG DAILY - pantoprazole 40 mg granules for suspension (PROTONIX) 40 mg ORAL DAILY (6 AM) - ondansetron 4 mg tab(s) (ZOFRAN) 4 mg PEG q 6 H PRN - fludrocortisone 0.1 mg tab(s) (FLORINEF) 0.1 mg ORAL DAILY - valproic acid 125 mg CUP (DEPAKENE) 125 mg ORAL QID - folic acid 1 mg tab(s) 1 mg PEG DAILY - pyridoxine (vitamin B6) 25 mg tab(s) (VITAMIN B6) 25 mg PEG DAILY - cyanocobalamin 100 mcg tab(s) (VITAMIN B-12) 100 mcg PEG DAILY - dextromethorphan 20 mg - quiNIDine 10 mg capsule (NUEDEXTA) 1 capsule ORAL q 12 H DATA: Diagnostic tests reviewed for today's visit: Results for KARI ALLAN ( ) as of 10/31/2018 11:21 Ref. 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 Discussed the risks, benefits and alternatives to the medication(s) recommended. Consent was given. INTERVENTION: Biological: Seroquel 50 mg BID Lexapro 10 mg daily Depakote Sprinkles 125 mg QID to depakene 125 mg QID Nuedexta 20/10 mg capsule > bid Melatonin 9 mg at bedtime Psychological: Encourage patient participation in unit activities: supportive therapy, group therapy and RT offered Social work for collateral from family, discharge planning and outpatient management Wound care management for peg tube site. DISCHARGE PLANNING: when stable return to Shelter Facility SIGNATURE: Ajith Palomares DO PATIENT NAME: Kari Allan DATE: November 02, 2018 TIME: 11:14 AM [facility] NURSING PROGon 11-01-2018 Protein mass conc HNO ID: [id number] Author: Ralph Yanez RN Service: Nursing Author Type: Registered Nurse Type: Nursing Progress Note Filed: 11/01/2018 10:29 PM Note Text: Behavioral Restraints Summary and Debriefing Note PATIENT NAME: Kari Allan Date in Restraints 11/01/2018 Time in Restraints 2039 Staff Member(s) present: Ralph Yanez RN, VALERIANO Bueno, Mable West RN, and security. Violent Restraints-Clinical Justification: Documentation required with Every Initial and Continued Order. The patient is demonstrating violent or self-destructive behavior that jeopardizes the immediate safety of the patient/others. Restraint Contraindications Considered: None Describe incident and rationale for type of intervention selected: pushing computer on wheels, posturing, threatening staff, cursing at staff and patients, non-compliant with redirection. Patient was able to identify precipitants and suggest alternatives for next time situation occurs. Patient was not injured/harmed by experience. Response to debriefing and additional details: Pt refusing to engage with this author about debriefing. Suggestions to prevent further episodes: Pt will comply with instruction from staff and security, pt will not threaten staff or other patients, and pt will not push objects to inflict harm on staff or other patients. Time out of Restraints 2040 Date of debriefin11/01/2018 Time of debriefin Ralph Yanez RN 11/01/2018 [facility] Protein mass conc HNO ID: [id number] Author: Ralph Yanez RN Service: Nursing Author Type: Registered Nurse Type: Nursing Progress Note Filed: 11/01/2018 10:30 PM Note Text: Nursing Progress: Topic: RESTRAINT VIOLENT PATIENT NAME: Kari Allan PATIENT LOCATION: [place] [address]/[address]* The patient demonstrates a need for physical hold restraint as evidenced by the following behaviors pushing computer on wheels, posturing, threatening staff, cursing at staff and patients, non-compliant with redirection which pose an imminent danger to self or others. The following interventions were attempted but were not effective in protecting the patient's safety: Attempts to distract pt, redirection to his room. Next, a comprehensive assessment was performed and warranted placing the patient in a physical hold restraint to take pt back to the seclusion room, the least restrictive restraint needed to protect the patient's safety. Ongoing safety assessments and evaluation for earliest removal of restraints will be performed. DATE: November 01, 2018 TIME: 9:00 PM Ralph Yanez RN [facility] Protein mass conc HNO ID: [id number] Author: Horacio Blake LPN Service: ? Author Type: LICENSED NURSE Type: Nursing Progress Note Filed: 11/01/2018 1:26 PM Note Text: Nursing Progress Note Patient Name: Kari Allan Patient Location: [id number]/[facility]* Daily Note:Pt has been up on intervals. Observed sitting in the day area and watching television and laying in his bed with his eyes closed. He is alert to self. General appearance is disheveled in hospital attire. Mood/affect is labile. No interaction with peers and social with staff. Appetite is adequate. He ate lunch. No groups attended. No acute distress or behavioral issues observed at this time. He voiced no delusions. Denies any audio/visual hallucinations and denies any suicidal/homicial ideation at this time. Will continue to monitor pt q 15 minutes on rounds for safety. This note was completed by: Horacio Blake LPN [facility] Protein mass conc HNO ID: [id number] Author: Alma Rosa (Rn) BEN Hanna Service: Nursing Author Type: Registered Nurse Type: Nursing Progress Note Filed: 11/01/2018 6:47 AM Note Text: Nursing Progress Note Patient Name: Kari Allan Patient Location: [id number]/[place] [address]* [id number] Assumed care. Patient was visible in the day this shift, seclusive to self and non social. His behavior remained appropriate and he needed no redirection. He was compliant with medications given through PEG tube which is patent. No PRN's given. No aggression verbally or physically observed. 0600- Pt. slept through the night, no inappropriate behaviors noted, no somatic complaints. Denies suicidal and homicidal ideation, contracts for safety, safety maintained, will continue to monitor for change in status. Slept 8 hours. This note was completed by: Alma Rosa Hanna RN [facility] PROGRESSon 11-01-2018 Protein mass conc HNO ID: [id number] Author: Ajith Palomares Service: Psychiatry Author Type: Physician Type: Progress Notes Filed: 11/01/2018 8:56 AM Note Text: PROGRESS NOTE BEHAVIORAL HEALTH SERVICE DATE: 11/01/2018 SERVICE TIME: 11:14 AM Subjective not too good- again today. Resting in bed. Monotone. Soft spoken. Denies suicidal ideations or homicidal ideations. Denies auditory hallucinations or visual hallucinations. Poor insight. Many prns. Will inc nuedexta to bid 11/01/2018 Objective PHYSICAL EXAM: BP 140/78 Pulse 90 Temp 36.8 ?C (98.2 ?F) (Oral) Resp 18 Ht 177.8 cm (5' 10) Wt 90.7 kg (200 lb) SpO2 96% BMI 28.70 kg/m? MENTAL STATUS EXAMINATION: Appearance: Casually dressed and Disheveled Behavior: Disorganized; confused Orientation: Person Speech/Language: choppy speech; focused on abdominal discomfort Mood/Affect: Anxious and Distressed Thought Form: Perseveration Thought Content: Eyes tend to move repeatedly left to right at intervals: denies hallucination; can be paranoid at times and becomes agitated with peer group or staff Suicidal Ideations: No suicidal ideation, intent or plan. Homicidal Ideations: No homicidal ideation, intent or plan. Insight: Insight is absent Judgment: Grossly impaired Memory/Cognition: Moderately Impaired Psychomotor: Agitated NEW PROBLEMS ON UNIT SINCE LAST ENCOUNTER: None Current Facility-Administered Medications Medication Dose Route Frequency - nicotine polacrilex 2 mg gum (NICORETTE) 2 mg ORAL q 2 H PRN - LORazepam 2 mg (ATIVAN) 2 mg ORAL q 4 H PRN Or - LORazepam 2 mg injection (ATIVAN) 2 mg INTRAMUSCULAR q 4 H PRN - ziprasidone 20 mg injection (GEODON) 20 mg INTRAMUSCULAR q 4 H PRN - acetaminophen 650 mg CUP (TYLENOL) 650 mg ORAL/FEEDING TUBE q 4 H PRN - bacitracin 500 unit/gram 1 application topical ointment 1 application TOPICAL PRN - escitalopram oxalate 10 mg tab(s) (LEXAPRO) 10 mg PEG DAILY - levETIRAcetam 750 mg CUP (KEPPRA) 750 mg ORAL/FEEDING TUBE BID - magnesium hydroxide 400 mg/5 mL 30 mL (MOM) 30 mL PEG DAILY PRN - melatonin 9 mg tab(s) 9 mg PEG AT BEDTIME - QUEtiapine 200 mg tab(s) (SEROquel) 200 mg PEG AT BEDTIME - QUEtiapine 50 mg tablet (SEROquel) 50 mg ORAL/FEEDING TUBE BID - thiamine 100 mg tab(s) (VITAMIN B1) 100 mg PEG DAILY - pantoprazole 40 mg granules for suspension (PROTONIX) 40 mg ORAL DAILY (6 AM) - ondansetron 4 mg tab(s) (ZOFRAN) 4 mg PEG q 6 H PRN - fludrocortisone 0.1 mg tab(s) (FLORINEF) 0.1 mg ORAL DAILY - valproic acid 125 mg CUP (DEPAKENE) 125 mg ORAL QID - folic acid 1 mg tab(s) 1 mg PEG DAILY - pyridoxine (vitamin B6) 25 mg tab(s) (VITAMIN B6) 25 mg PEG DAILY - cyanocobalamin 100 mcg tab(s) (VITAMIN B-12) 100 mcg PEG DAILY - dextromethorphan 20 mg - quiNIDine 10 mg capsule (NUEDEXTA) 1 capsule ORAL q 12 H DATA: Diagnostic tests reviewed for today's visit: Results for KARI ALLAN ( ) as of 10/31/2018 11:21 Ref. 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 Discussed the risks, benefits and alternatives to the medication(s) recommended. Consent was given. INTERVENTION: Biological: Seroquel 50 mg BID Lexapro 10 mg daily Depakote Sprinkles 125 mg QID to depakene 125 mg QID Nuedexta 20/10 mg capsule > bid Melatonin 9 mg at bedtime Psychological: Encourage patient participation in unit activities: supportive therapy, group therapy and RT offered Social work for collateral from family, discharge planning and outpatient management Wound care management for peg tube site. DISCHARGE PLANNING: when stable SIGNATURE: Ajith Palomares DO PATIENT NAME: Kari Allan DATE: November 01, 2018 TIME: 11:14 AM [facility] CASE MANAGEMon 10-31-2018 CASE MANAGEM HNO ID: [id number] Author: Maggie Villanueva (Sw) Service: ? Author Type: Payroll Master Type: Care Mgt Progress Note Filed: 10/31/2018 1:35 PM Note Text: BEHAVIORAL HEALTH SOCIAL WORK PROGRESS NOTE SERVICE DATE: 10/31/2018 SERVICE TIME: 13:34 SW met with patient on unit. Patient displays poor insight and with impaired cognition. Patient has been seen on unit speaking with select peers. No disruptive behaviors noted today. Patient is forgetful and believes that he will return home alone. At discharge patient will return to [facility]. Patient;s guardian is his sister Clari. MIRNA sent updated notes to [facility] via [facility] SIGNATURE: DANIKA Steele PATIENT NAME: Kari Allan DATE: October 31, 2018 TIME: 1:18 PM [facility] NURSING PROGon 10-31-2018 Protein mass conc HNO ID: [id number] Author: Leeann Sutton) BEN Huitron Service: Nursing Author Type: Registered Nurse Type: Nursing Progress Note Filed: 10/31/2018 5:32 PM Note Text: Nursing Progress Note Topic of Note: Daily Note Kari Allan [id number] Kari has been 100 % med compliant except the Nepro Cap which cannot be crushed or put into the PEG tube per the pharmacist. Hospital Orderly, Dr. Goodwin informed and gave instructions that pharm should make an acceptable substitution. At 11:36 am Kari did call a female peer a retard without any provocation. HE was given Ativan 2 mg IM which did seem to help.He had been given MOM on third shift for c/o constipation and when asked by this nurse and the charge nurse he reported that it had been effective. This note was completed by: Leeann Huitron RN At 16:13 Kari began to yell at staff and peers using profanity. He threatened a male MHW and would not sty in his room so he was given Geodon 20 mg IM and Ativan 2 mg IM and was then able to stay in the day area and eat dinner. After dinner he did have a small emesis but did not want anything for it. His 17:00 PEG tube meds were given and then he fell asleep in his bed. [facility] PROGRESSon 10-31-2018 Protein mass conc HNO ID: [id number] Author: Beatriz Ojeda) Tayla Service: Behavioral Health Author Type: Physician Prop And Effects Designer Type: Progress Notes Filed: 10/31/2018 11:33 AM Note Text: PROGRESS NOTE BEHAVIORAL HEALTH SERVICE DATE: 10/31/2018 SERVICE TIME: 11:14 AM Subjective not too good- right here it hurts(points to mid-abdomen (peg tube intact) Objective PHYSICAL EXAM: BP 110/65 Pulse 115 Temp 36.8 ?C (98.2 ?F) (Oral) Resp 12 Ht 177.8 cm (5' 10) Wt 90.7 kg (200 lb) SpO2 96% BMI 28.70 kg/m? MENTAL STATUS EXAMINATION: Appearance: Casually dressed and Disheveled Behavior: Disorganized; confused Orientation: Person (ate chicken, salad - don't feel good: Kari is on PEG tube feedings) Speech/Language: choppy speech; focused on abdominal discomfort Mood/Affect: Anxious and Distressed Thought Form: Perseveration Thought Content: Eyes tend to move repeatedly left to right at intervals: denies hallucination; can be paranoid at times and becomes agitated with peer group or staff Suicidal Ideations: No suicidal ideation, intent or plan. Homicidal Ideations: No homicidal ideation, intent or plan. Insight: Insight is absent Judgment: Grossly impaired Memory/Cognition: Moderately Impaired Psychomotor: Agitated NEW PROBLEMS ON UNIT SINCE LAST ENCOUNTER: None Current Facility-Administered Medications Medication Dose Route Frequency - nicotine polacrilex 2 mg gum (NICORETTE) 2 mg ORAL q 2 H PRN - LORazepam 2 mg (ATIVAN) 2 mg ORAL q 4 H PRN Or - LORazepam 2 mg injection (ATIVAN) 2 mg INTRAMUSCULAR q 4 H PRN - ziprasidone 20 mg injection (GEODON) 20 mg INTRAMUSCULAR q 4 H PRN - acetaminophen 650 mg CUP (TYLENOL) 650 mg ORAL/FEEDING TUBE q 4 H PRN - bacitracin 500 unit/gram 1 application topical ointment 1 application TOPICAL PRN - escitalopram oxalate 10 mg tab(s) (LEXAPRO) 10 mg PEG DAILY - levETIRAcetam 750 mg CUP (KEPPRA) 750 mg ORAL/FEEDING TUBE BID - magnesium hydroxide 400 mg/5 mL 30 mL (MOM) 30 mL PEG DAILY PRN - melatonin 9 mg tab(s) 9 mg PEG AT BEDTIME - QUEtiapine 200 mg tab(s) (SEROquel) 200 mg PEG AT BEDTIME - QUEtiapine 50 mg tablet (SEROquel) 50 mg ORAL/FEEDING TUBE BID - thiamine 100 mg tab(s) (VITAMIN B1) 100 mg PEG DAILY - pantoprazole 40 mg granules for suspension (PROTONIX) 40 mg ORAL DAILY (6 AM) - ondansetron 4 mg tab(s) (ZOFRAN) 4 mg PEG q 6 H PRN - dextromethorphan 20 mg - quiNIDine 10 mg capsule (NUEDEXTA) 1 capsule ORAL DAILY - fludrocortisone 0.1 mg tab(s) (FLORINEF) 0.1 mg ORAL DAILY - b complex, c, folic acid 1 mg renal vitamins 1 capsule (NEPHROCAPS) 1 capsule ORAL DAILY - valproic acid 125 mg CUP (DEPAKENE) 125 mg ORAL QID DATA: Diagnostic tests reviewed for today's visit: Results for KARI ALLAN ( ) as of 10/31/2018 11:21 Ref. 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 Discussed the risks, benefits and alternatives to the medication(s) recommended. Consent was given. INTERVENTION: Biological: Seroquel 50 mg BID Lexapro 10 mg daily Depakote Sprinkles 125 mg QID to depakene 125 mg QID Nuedexta 20/10 mg capsule daily Melatonin 9 mg at bedtime Psychological: Encourage patient participation in unit activities: supportive therapy, group therapy and RT offered Social work for collateral from family, discharge planning and outpatient management Wound care management for peg tube site. DISCHARGE PLANNING: when stable SIGNATURE: COSMO Parmar PA-C PATIENT NAME: Kari Allan DATE: October 31, 2018 TIME: 11:14 AM [facility] ALLIED HEALTHon 10-30-2018 ALLIED HEALTH HNO ID: [id number] Author: Sr. Radha Gonzales-Archana Levine MT Service: Recreational Therapy Author Type: Therapist Type: Allied Health Filed: 10/30/2018 3:49 PM Note Text: PROGRESS NOTE BEHAVIORAL HEALTH Topic of Note: Three Day Note SERVICE DATE: 10/30/2018 SERVICE TIME: 3;24pm Patient has attended only a small amount of time in one structured RT group in the past three days. Patient had some difficulty focusing in this art group, but his behavior was in control. After about 10 minutes he decided to leave the group and did not return. His affect remained flat. He was non-verbal in group. Groups will continue to be encouraged in order to promote healthy coping and social skills. SIGNATURE: JOSEPH Kaye PATIENT NAME: Kari Allan DATE: October 30, 2018 TIME: 3:42 PM PAGER/CONTACT #: [facility] NURSING PROGon 10-30-2018 Protein mass conc HNO ID: [id number] Author: Aiden (Rn) BEN Buchanan Service: ? Author Type: Registered Nurse Type: Nursing Progress Note Filed: 10/31/2018 6:26 AM Note Text: Nursing Progress Note Patient Name: Kari Allan Patient Location: [id number]/[facility]-015* Daily Note: Assumed care at 1930. At start of shift patient remained in bed asleep. Patient wad compliant with passing medications via peg tube. No residual noted and peg flushed without resistance. Upon assessment patient is disheveled in appearance, alert to person only, and labile in mood. Behavior has remained in control. Patient remains on liquid diet and liquid foods provided for patient. Patient then helped to bathroom where he remained continent of urine. Attempted to help patient change his pants due to them having old food stains on them but patient became irritable and refused. Will continue to monitor. Q 15 minute checks performed. 0417: Patient complaining of his stomach hurting. Abdomen slightly firm when palpating. PRN zofran and MOM administered per order. No other complaints at this time. Will continue to monitor. Q 15 minute checks performed. 0500: Patient continually coming out to the day area and talking very loudly, labile in mood. Patient in need of frequent redirection. 0546: Patient out in day area without any pants yelling that he needs new clothes. Patient helped into new brief and pair of pants. Patient was asked if he wanted medication to help him relax and he agreed. PRN IM ativan administered at this time. 0620: Patient intermittently visible in day area. Patient encouraged to stay in bed for a while due to recently receiving ativan and being a high fall risk. Patient no longer complaining of abdominal discomfort at this time. Behavior in control at this time. Q 15 minute checks performed. This note was completed by: Aiden Buchanan RN [facility] Protein mass conc HNO ID: [id number] Author: Gerson (Rn) Paramjit Hickey RN Service: Nursing Author Type: Registered Nurse Type: Nursing Progress Note Filed: 10/30/2018 4:39 PM Note Text: Nursing Progress Note Patient Name: Kari Allan Patient Location: [id number]/[facility]* Daily Note: Patient presents disheveled in hospital attire. Irritable and resistive, he is able to accept direction and use bathroom before leaving room for breakfast. He has remained continent this shift. Targeted toileting scheduled maintained per patient tolerance. Good appetite exhibited at breakfast. Patient requires set up and he eats independently. Pleasant and cooperative with routine care. Patient is medication compliant. Meds administered through peg tube, peg remains patent,flushes easily. 60 cc fluid flushed before during and after medication administration. Tube insertion site is clean, undressed. No s/s of infection. Patient was upright and seated during breakfast, remained upright for 30 minutes after meal and medication administration. Patient reported feeling tired, directed to bed for nap. Observed sleeping quietly. Will continue to monitor frequently per unit protocol. 1415: Patient out in day area, observed disrobing. Upon redirection patient became loud and pressured, What the fuck are YOU going to do about it? He began making inappropriate comments to staff You have nice titties several times to young staff member. Redirected several times. Patient escorted to his room. HR elevated. Medicated with Ativan 2 mg IM at 14:20 for anxiety as manifested in elevated vital signs and impulsive and resistive behaviors. Upon further assessment, patient reports pain at his peg tube site, denies nausea. Tylenol 650 mg given via peg tube, Bacitracin oint applied to peg site after cleansing. Patient reports some relief. Patient reports feeling hungry. Appropriate items offered to patient. He ate well. Will continue to monitor. 1630: Patient took remote control for common area tv. When asked if he was giving it to staff to keep safe, he replied No, I'm going to break it. Reasoned with patient, if broken, we have no tv. So we have no tv then patient replied. Remote gently taken from patient by staff member. Fuck you all and the horse you rode in on. Patient states he feels angry because of blacks and whites. Then stated I hate whites. Then I hate [place] whites. They think they know how it goes. I'll show them how it goes. It goes to the devil. I want to become contuges. Patient states contuges means going out to the day area and stinging everyone you can. Pressured speech with angry affect. Medicated with Geodon 20 mg IM for agitation, verbally threatening to break an object and yelling and cursing, making racially charged statements as well as verbal threats of violence. Will continue to monitor closely for effectiveness of PRN medication. This note was completed by: Gerson Hickey RN [facility] Protein mass conc HNO ID: [id number] Author: Aiden (Rn) BEN Buchanan Service: ? Author Type: Registered Nurse Type: Nursing Progress Note Filed: 10/30/2018 12:52 AM Note Text: Nursing Progress Note Patient Name: Kari Allan Patient Location: [id number]/[place] [id number]* Daily Note: 1951: Patient out in day area yelling and swearing. When RN redirected patient to keep his voice down he kept saying, I need a shot! I need a shot! Prn IM ativan administered at this time with good results. This note was completed by: Aiden Buchanan RN [facility] PROGRESSon 10-30-2018 Protein mass conc HNO ID: [id number] Author: Anson Mcknight Service: Psychiatry Author Type: Physician Type: Progress Notes Filed: 10/30/2018 11:41 AM Note Text: PROGRESS NOTE BEHAVIORAL HEALTH SERVICE DATE: 10/30/2018 SERVICE TIME: 11:39 AM The Interdisciplinary team met and reviewed treatment goals and discharge planning. Subjective Per nursing, pt requested 'a shot', given PRN Ativan IM. Pt slept most of the night. Pt seen in his room, resting comfortably. Irritable, minimal responses. Did eat breakfast, no concerns at this time. Objective PHYSICAL EXAM: BP 95/72 Pulse 114 Temp 36.8 ?C (98.2 ?F) (Oral) Resp 12 Ht 177.8 cm (5' 10) Wt 90.7 kg (200 lb) SpO2 96% BMI 28.70 kg/m? MENTAL STATUS EXAMINATION: Appearance: Disheveled, unkempt, appears much older than his stated age and In hospital gown Behavior: Disorganized Orientation: Person Speech/Language: Garbled, Rambling and Underproductive Mood/Affect: Having Trouble Concentrating Thought Form: concrete, disorganized Thought Content: denies AVH Suicidal Ideations: No suicidal ideation, intent or plan. Homicidal Ideations: No homicidal ideation, intent or plan. Insight: Insight is absent Judgment: Grossly impaired Memory/Cognition: Unable to Assess Psychomotor: Psychomotor activity was normal NEW PROBLEMS ON UNIT SINCE LAST ENCOUNTER: PRN for anxiety Current Facility-Administered Medications Medication Dose Route Frequency - nicotine polacrilex 2 mg gum (NICORETTE) 2 mg ORAL q 2 H PRN - LORazepam 2 mg (ATIVAN) 2 mg ORAL q 4 H PRN Or - LORazepam 2 mg injection (ATIVAN) 2 mg INTRAMUSCULAR q 4 H PRN - ziprasidone 20 mg injection (GEODON) 20 mg INTRAMUSCULAR q 4 H PRN - acetaminophen 650 mg CUP (TYLENOL) 650 mg ORAL/FEEDING TUBE q 4 H PRN - bacitracin 500 unit/gram 1 application topical ointment 1 application TOPICAL PRN - escitalopram oxalate 10 mg tab(s) (LEXAPRO) 10 mg PEG DAILY - levETIRAcetam 750 mg CUP (KEPPRA) 750 mg ORAL/FEEDING TUBE BID - magnesium hydroxide 400 mg/5 mL 30 mL (MOM) 30 mL PEG DAILY PRN - melatonin 9 mg tab(s) 9 mg PEG AT BEDTIME - QUEtiapine 200 mg tab(s) (SEROquel) 200 mg PEG AT BEDTIME - QUEtiapine 50 mg tablet (SEROquel) 50 mg ORAL/FEEDING TUBE BID - thiamine 100 mg tab(s) (VITAMIN B1) 100 mg PEG DAILY - pantoprazole 40 mg granules for suspension (PROTONIX) 40 mg ORAL DAILY (6 AM) - ondansetron 4 mg tab(s) (ZOFRAN) 4 mg PEG q 6 H PRN - dextromethorphan 20 mg - quiNIDine 10 mg capsule (NUEDEXTA) 1 capsule ORAL DAILY - fludrocortisone 0.1 mg tab(s) (FLORINEF) 0.1 mg ORAL DAILY - b complex, c, folic acid 1 mg renal vitamins 1 capsule (NEPHROCAPS) 1 capsule ORAL DAILY - valproic acid 125 mg CUP (DEPAKENE) 125 mg ORAL QID DATA: Diagnostic tests reviewed for today's visit: Most recent labs Assessment/Plan DIAGNOSIS: 1. PRIMARY: Dementia with behavioral disturbance 2. Substance-Related Disorder Alcohol Dependence and Cocaine Dependence 3. Hx of Anoxic Brain Injury ? GAF: - Some danger of hurting self or others ? INFORMED CONSENT: Unable to Participate ? RISK ASSESSMENT: Suicide: Low Homicide: Low Deliberate Self-Harm: Low Aggression: Moderate Imminent Physical Self Impairment: Low ? INTERVENTION: Biological: Seroquel 50 mg BID, Lexapro 10 mg daily, swtich Depakote Sprinkles 125 mg QID to depakene 125 mg QID, Nuedexta 20/10 mg capsule daily, and Melatonin 9 mg qhs Psychological: milieu Social: avoid isolation DISCHARGE PLANNING: To be determined SIGNATURE: Anson Mcknight MD PATIENT NAME: Kari Allan DATE: October 30, 2018 TIME: 11:39 AM PAGER/CONTACT#: see directory Normal [facility] Basic Metabolic Panlon 10-29 Anion gap molar conc 13 mmol/L Normal 0-15 [facility] Comment on above: Performed By: #### B MP ####[place] [id number] [facility], [place] [phone] Calcium mass conc 9.3 mg/dL Normal 8.5-10.2 [facility] Comment on above: Performed By: #### B MP ####[place] [id number] [facility], [place] [phone] Chloride molar conc 97 mmol/L Low 98-107 [facility] Comment on above: Performed By: #### B MP ####[address] [place]., [place] [phone] CO2 molar conc 26 mmol/L Normal 22-29 [facility] Comment on above: Performed By: #### B MP ####[address] [place] [phone] Creatinine mass conc 0.80 mg/dL Normal 0.67-1.17 [facility] Comment on above: Performed By: #### B MP ####[address] [place]., [place] [phone] eGFR- Amer. >60 Normal >60 [facility] Comment on above: Performed By: #### B MP ####[address] [place] [phone] GFR/1.73 sq M predicted among non-blacks MDRD vol rate/area (S/P/Bld) mL/min/{1.73_m2} Normal >60 [facility] Comment on above: Result Comment: eGFR (Estimated GFR) Units of measure: mL/min/1.73 meters squared eGFR is derived from the 4 variable MDRD equation for glomerular filtration rate (GFR) based on a stable serum creatinine, gender, and age. According to KDOQI guidelines, an eGFR <60 mL/min/1.73m2 is sufficient to diagnose a patient with chronic kidney disease. Performed By: #### B MP ####[address]., [place] [phone] Glucose mass conc 161 mg/dL High 74-99 [facility] Comment on above: Performed By: #### B MP ####[address] [place] [phone] Potassium molar conc 3.5 mmol/L Normal 3.4-4.5 [facility] Comment on above: Performed By: #### B MP ####[facility] [facility]., [place] [phone] Sodium molar conc 136 mmol/L Normal 136-144 [facility] Comment on above: Performed By: #### B MP ####[facility] [facility]., [place] [phone] Urea nitrogen mass conc 8 mg/dL Normal 6-20 [facility] Comment on above: Performed By: #### B MP ####[facility] [facility]., [place] [phone] NURSING PROGon 10-29-2018 Protein mass conc HNO ID: [id number] Author: Ana Luisa (Rn) BEN Peace Service: Nursing Author Type: Registered Nurse Type: Nursing Progress Note Filed: 10/30/2018 6:33 AM Note Text: Nursing Progress Note Patient Name: Kari Allan Patient Location: [id number]/[place] [id number]* Daily Note: 1900 - Assumed care of patient. Received report on patient from previous staff. Patient visible in the day area at the start of shift. Patient is disheveled, wearing hospital gowns and pants. Patient is DNRCC. Patient denies suicidal and homicidal ideations and auditory and visual hallucinations. Patient's affect is flat and mood irritable. Patient is not social with peers or staff. Patient keeps to himself while in the day area. Patient experiences memory lapses during the shift as evidenced by patient not remembering drinking broth for snack, not remembering receiving prn Ativan at the start of shift, not remembering he is on a clear liquid diet (requesting to eat a sandwich), not remembering his room. Patient was observed to be loud and demanding at times, however, he is redirectable with this RN. Patient is able to make his needs known. Patient's behavior was appropriate during this shift. Will continue to monitor. 1951 - Patient was loud and demanding a shot. Patient's HR registered 125. Patient was given prn Ativan 2 mg (IM), results pending. 2051 - Patient was observed less demanding and loud. Ativan resulted with positive effects. Will continue to monitor. 2114 - Patient was compliant with his HS medications and VS. Medications were administered via PEG tube without issue. Medication given with 30 cc water. PEG tube patent, flushes easily, no residual observed. Patient tolerated medications well. 2214 - Patient was observed sleeping in his room, breathing even and unlabored. Will continue to monitor. Patient's behavior has been in control this shift. Safety measures and patient checks per unit protocol, will continue to monitor. 2299 - Observed patient sleeping in his room. Safety measures and patient checks per unit protocol, will continue to monitor 0 - Patient out of his room requesting help after urinating in bed. This RN assisted him with charissa-care, placed him in adult briefs, then assisted him change into new hospital gowns and pants. Patient's beddings were changed as well. Patient went back to sleep afterwards. 0600 - Patient tolerated Protonix granules with 10 mL apple juice through his PEG tube. PEG tube patent, flushes easily, no residual observed. 0630 - Patient slept for approximately 7 hours. Patient was not in distress, voiced no complaints, and his behavior has been in control throughout the shift. No PRNs were given this shift. This note was completed by: Ana Luisa Peace RN [facility] Protein mass conc HNO ID: [id number] Author: Gerson (Rn) Paramjit Hickey RN Service: Nursing Author Type: Registered Nurse Type: Nursing Progress Note Filed: 10/29/2018 2:46 PM Note Text: Nursing Progress Note Patient Name: Kari Allan Patient Location: [id number][facility] [id number] Daily Note: Patient presents disheveled in hospital attire. Upright, sitting at 90 degrees for full liquid breakfast tolerated well. Patient denies nausea, though he continuously requests Zofran. He reports pain at his peg tube insertion site, area is clean, no redness noted. Medicated with Tylenol with good effect. Bactroban PRN applied to area. 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 Oriented to time and date, unit. Patient can be inappropriate at times, coming into day area half dressed seeking assistance with snaps on pants. Redirected to his room, assistance with charissa care and dressing needed. He is calm, cooperative and accepts direction well. Medications via peg tube. Peg flushed with 30 cc water, it is patent and flushes easily. No residual observed. He denies si/hi/avh. He likes fishing and is minimally social with outgoing peer. [facility]. He has remained visible on the unit. No acute distress or behavioral issues observed at this time. Will continue to monitor pt q 15 minutes on rounds for safety. Patient tolerated lunch well, liquid diet and supplemental nutritional drink. He remains cooperative and directable. He briefly attended group but came out soon after c/o what appears to be anxiety. Medicated with Ativan 2 mg IM with good effect. Patient has remained visible on unit. Calm and cooperative. Peg tube remains patent and flushes easily. This note was completed by: Gerson Hickey RN [facility] PROGRESSon 10-29-2018 Protein mass conc HNO ID: [id number] Author: Anson Mcknight Service: Psychiatry Author Type: Physician Type: Progress Notes Filed: 10/29/2018 1:25 PM Note Text: PROGRESS NOTE BEHAVIORAL HEALTH SERVICE DATE: 10/29/2018 SERVICE TIME: 12:17 PM The Interdisciplinary team met and reviewed treatment goals and discharge planning. Subjective Per nursing, pt was up much of the night, complaining of nausea, intermittently sleeping. No behavioral issues. Pt is pleasant, somewhat concrete, denies any issues at this time. Objective PHYSICAL EXAM: BP 99/76 Pulse 99 Temp 36.8 ?C (98.2 ?F) (Oral) Resp 16 Ht 177.8 cm (5' 10) Wt 90.7 kg (200 lb) SpO2 96% BMI 28.70 kg/m? MENTAL STATUS EXAMINATION: Appearance: Disheveled, unkempt, appears much older than his stated age and In hospital gown Behavior: Disorganized Orientation: Person Speech/Language: Garbled, Rambling and Underproductive Mood/Affect: Having Trouble Concentrating Thought Form: concrete, disorganized Thought Content: denies AVH Suicidal Ideations: No suicidal ideation, intent or plan. Homicidal Ideations: No homicidal ideation, intent or plan. Insight: Insight is absent Judgment: Grossly impaired Memory/Cognition: Unable to Assess Psychomotor: Psychomotor activity was normal NEW PROBLEMS ON UNIT SINCE LAST ENCOUNTER: None Current Facility-Administered Medications Medication Dose Route Frequency - nicotine polacrilex 2 mg gum (NICORETTE) 2 mg ORAL q 2 H PRN - LORazepam 2 mg (ATIVAN) 2 mg ORAL q 4 H PRN Or - LORazepam 2 mg injection (ATIVAN) 2 mg INTRAMUSCULAR q 4 H PRN - ziprasidone 20 mg injection (GEODON) 20 mg INTRAMUSCULAR q 4 H PRN - acetaminophen 650 mg CUP (TYLENOL) 650 mg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 16 Ht 177.8 cm (5' 10) Wt 90.7 kg (200 lb) SpO2 96% BMI 28.70 kg/m? MENTAL STATUS EXAMINATION: Appearance: Disheveled, unkempt, appears much older than his stated age and In hospital gown Behavior: Disorganized Orientation: Person Speech/Language: Garbled, Rambling and Underproductive Mood/Affect: Having Trouble Concentrating Thought Form: concrete, disorganized Thought Content: denies AVH Suicidal Ideations: No suicidal ideation, intent or plan. Homicidal Ideations: No homicidal ideation, intent or plan. Insight: Insight is absent Judgment: Grossly impaired Memory/Cognition: Unable to Assess Psychomotor: Psychomotor activity was normal SUICIDE RISK ASSESSMENT APPLICABLE: No PHYSICAL EXAM: Blood pressure 110/82, pulse 104, temperature 36.7 ?C (98 ?F), temperature source Oral, resp. rate 16, height 177.8 cm (5' 10), weight 90.7 kg (200 lb), SpO2 96 %. GENERAL: Alert, no distress, cooperative. NEUROLOGIC: No gross abnormal findings including cranial nerves 2-12. MUSCULOSKELETAL: Normal muscle strength, Normal muscle tone and No involuntary movements. GAIT: Normal. DATA: Diagnostic tests reviewed for today's visit: Most recent labs Component Latest Ref Rng AND Units 10/26/2018 10/27/2018 Protein, Total 6.3 - 8.0 g/dL 8.0 Albumin 3.9 - 4.9 g/dL 4.0 Calcium 8.5 - 10.2 mg/dL 9.1 Bilirubin, Total 0.2 - 1.3 mg/dL 0.4 Alkaline Phosphatase 38 - 113 U/L 105 AST 14 - 40 U/L 17 Glucose 74 - 99 mg/dL 103 (H) BUN 9 - 24 mg/dL 9 Creatinine 0.73 - 1.22 mg/dL 0.91 Sodium 136 - 144 mmol/L 140 Potassium 3.7 - 5.1 mmol/L 3.0 (L) Chloride 97 - 105 mmol/L 96 (L) CO2 22 - 30 mmol/L 34 (H) Anion Gap 9 - 18 mmol/L 10 ALT 10 - 54 U/L 41 eGFR- >60 eGFR-All Other Races . >60 Color Yellow Yellow Appearance (U) Clear Clear Glucose, Urine Negative mg/dL Negative Bilirubin, Urine Negative Moderate (A) Ketones, Urine Negative >=80 (A) Specific [place], Ur 1.001 - 1.029 1.020 Hemoglobin/Blood,Ur Negative Moderate (A) pH, Urine 5.0 - 8.0 6.0 Protein, Urine Negative mg/dL 30 (A) Urobilinogen 0.2 - 1.0 1.0 Nitrites Negative Negative Leukest Negative Negative WBC 3.70 - 11.00 k/uL 9.96 RBC 4.20 - 6.00 m/uL 4.72 Hemoglobin 13.0 - 17.0 g/dL 14.6 Hematocrit 39.0 - 51.0 % 43.2 MCV 80.0 - 100.0 fL 91.5 MCH 26.0 - 34.0 pG 30.9 MCHC 30.5 - 36.0 g/dL 33.8 RDW-CV 11.5 - 15.0 % 13.6 Platelet Count 150 - 400 k/uL 400 MPV 9.0 - 12.7 fL 9.0 Phencyclidine Negative Negative Benzodiazepines Urine Negative Negative Cocaine Urine Negative Negative Amphetamines Negative Negative THC Negative Negative Opiates Negative Negative Barbiturates Negative Negative Oxycodone, Urine Negative Negative WBC, Urine 0 - 5 /HPF 0-5 RBC, Urine 0 - 3 /HPF 0-3 Cast 0 /LPF SEE COMMENT (A) Epithelial Cells /HPF SEE COMMENT Crystal 0 /HPF SEE COMMENT (A) Ethanol <11 mg/dL <11 Assessment/Plan DIAGNOSIS: 1. PRIMARY: Dementia with behavioral disturbance 2. Substance-Related Disorder Alcohol Dependence and Cocaine Dependence 3. Hx of Anoxic Brain Injury GAF: -20- Some danger of hurting self or others INFORMED CONSENT: Unable to Participate RISK ASSESSMENT: Suicide: Low Homicide: Low Deliberate Self-Harm: Low Aggression: Moderate Imminent Physical Self Impairment: Low PLAN: - Medications:- Seroquel 50 mg BID, Lexapro 10 mg daily, Depakote Sprinkles 125 mg QID, Nuedexta 20/10 mg capsule daily, and Melatonin 9 mg qhs - No contraindications for seclusion and restraint - Precautions - per unit protocol - Obtain: Social work for collateral from family, discharge planning and outpatient management - Other: Supportive therapy provided, RT and group therapy Encourage patient to be active and participate in unit programming and milieu and group therapy. -Dr. Hurley consulted for medical management. SIGNATURE: Davis Morel PA-C PATIENT NAME: Kari Allan DATE: October 28, 2018 TIME: 8:17 AM PSYCHIATRY STAFF ADDENDUM: I have personally interviewed the patient, obtained schultz components of the history and performed a psychiatric evaluation. I concur with the PA's documented psychiatric evaluation with the indicated clarifications. INFORMED CONSENT: Yes, completed with the Patient. Discussed the risks, benefits and alternatives to the medication(s) recommended. Consent was given. Ajith Palomares DO [facility] Hemoglobin A1con 10-28-2018 Hemoglobin A1c/Hemoglobin.total mass fraction (Bld) 111 mg/dL [facility] Comment on above: Result Comment: eAG: (Estimated average glucose) is a calculated value from HgbA1c and is metals sales representative of the average blood glucose level in the last 2-3 month period. Performed By: #### L IPB, HBA1C ####[facility] [place], [place] [phone] Hemoglobin A1c/Hemoglobin.total mass fraction (Bld) 5.5 % Normal 4.3-5.6 [facility] Comment on above: Result Comment: Amer ican Diabetes Association guidelines indicate that patients with HgbA1c in the range 5.7-6.4% are at increased risk for development of diabetes, and intervention by lifestyle modification may be beneficial. HgbA1c greater or equal to 6.5% is considered diagnostic of diabetes. Performed By: #### L IPB, HBA1C ####[facility] [place] [address] [place], [place] [phone] Lipid Panel, Basic 019 Cholesterol in HDL mass conc 27 mg/dL Low >39 [facility] Comment on above: Result Comment: 40-5 9 mg/dL, Acceptable >59 mg/dL, High: Negative risk factor for coronary heart disease <40 mg/dL, Low: Positive risk factor for coronary heart disease Performed By: #### L IPB, HBA1C #### [facility] [place] [address] [place] [phone] Cholesterol in LDL mass conc 108 mg/dL High <100 [facility] Comment on above: Result Comment: <100 mg/dL, Optimal 100-129 mg/dL, Near optimal/above optimal 130-159 mg/dL, Borderline high 160-189 mg/dL, High >189 mg/dL, Very high Secondary prevention optimal LDL Cholesterol levels are recommended to be < 70 mg/dL Performed By: #### L IPB, HBA1C #### [facility] [place] [address] [place], [place] [address] Cholesterol mass conc 167 mg/dL Normal <200 [facility] Comment on above: Result Comment: <200 mg/dL, Desirable 200-239 mg/dL, Borderline high >239 mg/dL, High Performed By: #### L IPB, HBA1C #### [facility] [place] [address] [place], [place] [address] Fasting Time Unknown Normal [facility] Comment on above: Performed By: #### L IPB, HBA1C #### [facility] [address] [place] [address] LDL:HDL Ratio 4.00 High <2.54 [facility] Comment on above: Result Comment: Amilcar ervin: 1. National Cholesterol Education Program ATP III Guideline At-A-Glance Quick Desk Reference: National Heart, Lung, and Blood [place]. National Institutes of Health. 2001: NIH Publication No. 01-3305. 2. An International Atherosclerosis Society position paper: global recommendations for the management of dyslipidemia: executive summary, Atherosclerosis. 2014: 232(2):410-413. Performed By: #### L IPB, HBA1C #### [facility] [place] [address] [place] [phone] Non HDL Cholesterol 140 mg/dL High <130 [facility] Comment on above: Result Comment: <130 mg/dL, Optimal 130-159 mg/dL, Near optimal/above optimal 160-189 mg/dL, Borderline high 190-219 mg/dL, High >219 mg/dL, Very high Secondary prevention optimal non HDL Cholesterol levels are recommended to be < 100 mg/dL Performed By: #### L IPB, HBA1C #### [facility] [place] [address] [place] [phone] TC:HDL Ratio 6.19 High <5.10 [facility] Comment on above: Performed By: #### L IPB, HBA1C #### [facility] [place] [address] [place] [address] Triglyceride mass conc 162 mg/dL High <150 [facility] Comment on above: Result Comment: <150 mg/dL, Normal 150-199 mg/dL, Borderline high 200-499 mg/dL, High >499 mg/dL, Very high Performed By: #### L IPB, HBA1C #### [facility] [place] [address] [place] [address] VLDL Cholesterol 32 mg/dL High <30 [facility] Comment on above: Performed By: #### L IPB, HBA1C #### [facility] [address] [place] [address] NURSING PROGon 10-28-2018 Protein mass conc HNO ID: [id number] Author: Kerri MedinaRn) BEN Slaughter Service: ? Author Type: Registered Nurse Type: Nursing Progress Note Filed: 10/29/2018 6:13 AM Note Text: Nursing Progress Note Patient Name: Kari Allan Patient Location: [id number]/[facility]* Daily Note:Assumed care of pt at 1930. Pt in day area. Pt is anxious, pacing. Pt c/o upset stomach. Pt received zofran at 1950 through PEG tube with no difficulty. Pt is social when spoken to by other pts. Pt calm and in control. Pt denies si/hi, avh, dep, anx, delusions at this time. 2049: pt takes hs meds with no issues. Pt received prn ativan with hs meds for anxiety. Pt is currently eating snack of chicken broth. Pt educated on the need to stay up right after eating to prevent complications, pt verbalized understanding. Will cont to monitor. 0020: pt unsteady coming out of room. Pt c/o im going to be sick. pt directed back to room, given basin. Pt instructed to call out for help when getting up, unknown if understood. 0200: pt asleep in room. No s/s of distress noted. 0400: pt awake and c/o upset stomach. Pt received prn zofran per jul. 0600: pt in room asleep, resp even and unlabored. Will cont to monitor. This note was completed by: Kerri Slaughter RN [facility] Protein mass conc HNO ID: [id number] Author: Alma Rosa MedinaRn) BEN Hanna Service: Nursing Author Type: Registered Nurse Type: Nursing Progress Note Filed: 10/28/2018 7:26 PM Note Text: Nursing Progress Note Patient Name: Kari Allan Patient Location: [id number][facility] [id number] 0700- Assumed care. Patient was compliant with morning medication. Flat affect. He is in control and cooperative. No agitation or aggression observed. PEG tube patent. 1200- Line Haul Truck Driver from patients halfway came to check on patient. He received a swallow evaluation and its being considered whether or not patient can advance to a thicker diet. The briefcase sewer stated that patient has been on a liquid diet for awhile due to dysphagia. He complains of ongoing stomach pain that is not relieved with PRN Zofran. He states he has not urinated today, but its unclear if that's the case considering his poor memory. He was bladder scanned and it read 50 cc. He can be irritable with other patients but has remained in control. Medications have been put through PEG tube without issues. He continues to eat liquids for meals, and he eats well. This note was completed by: Alma Rosa Hanna RN [facility] Protein mass conc HNO ID: [id number] Author: Shannon (Rn) BEN Alcantara Service: Nursing Author Type: Registered Nurse Type: Nursing Progress Note Filed: 10/28/2018 6:48 AM Note Text: Nursing Progress Note Patient Name: Kari Allan Patient Location: [id number]/[place] [id number]* Daily Note: : Kari was visible in the day area. He is alert only to self, needing frequent redirection on where his room is. He complained of abdominal and back pain. He received PRN Tylenol with his night time medications at 2056 via PEG tube. His PEG tube site is clean, dry, and intact. Flushes easily with no issues. He denies SI/HI and AVH. He is seclusive to self, mainly sitting in his room or alone in the day area. 2200: Contacted patient's halfway to confirm if he receives tube feeds. They said he does not receive any feedings through his tube, just his medications. He receives an oral nutritional supplement and has been advanced to a pudding consistency diet rather than clear liquids. Order received from Dr. Beverly for a nutritional consult. 0: Patient still complaining of abdominal pain and acid reflux pain. Notified [facility] who ordered a one time dose of Protonix. Protonix and PRN Zofran given with effective results. 0645: Patient has slept 6 hours overnight. He was medication compliant with his scheduled Protonix. Arm band intact, safety checks maintained per unit protocol. This note was completed by: Shannon Alcantara RN [facility] NUTRITIONon 10-28-2018 NUTRITION HNO ID: [id number] Author: Serge Leiva) Priyank Service: Nutrition Therapy Author Type: Registered Dietitian Type: Nutrition Filed: 10/28/2018 3:17 PM Note Text: NUTRITION THERAPY SCREENING NOTE SERVICE DATE: 10/28/2018 SERVICE TIME: 11:00 AM NUTRITION CARE PLAN Intervention: - Recommend NET SOFTWARE ARCHITECT evaluation - Advance diet per NET SOFTWARE ARCHITECT - Trial Ensure Clear TID in the interim - Replace K+ - Advance diet to FL per NET SOFTWARE ARCHITECT - order MBSS Collaborated with Davis Morel Pa-C and orders written Discharge Nutrition Recommendations: To be determined Per HPI: 48 yo M admitted for agitation. 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 Hx of respiratory failure secondary to opioid drug overdose, alcohol abuse. He has a history of pancreatitis and has a G-tube in place. PAST MEDICAL HISTORY Diagnosis Date - Acute respiratory failure (HCC) - Alcohol abuse - Anemia - Anemia - Back pain - C. difficile colitis - COPD (chronic obstructive pulmonary disease) (HCC) - Drug overdose - DVT (deep venous thrombosis) (HCC) - Dysphasia - Encephalopathy - Opiate dependence, continuous (HCC) - Pancreatitis - Pulmonary nodule seen on imaging study - Renal cyst - Seizure (HCC) - Sepsis (HCC) - Tobacco abuse - Weakness Labs: Hypokalemia Consulted for oral diet +/- TF. Unclear feeding program tug captain - supposedly pt was on pudding thick diet. The patient no longer infuses TF via PEG but uses it for medications; G tube patent and CT of the abdomen was negative. He has gained 40kg over the past year and appears very well nourished. The patient does not know the consistency of the food or liquid he eats/drinks, but admits to drinking water, juice etc. Pt was last assessed by a [facility] RD and NET SOFTWARE ARCHITECT in 2018. He needs a repeat evaluation before safely advancing his diet, which I suspect is closer to regular given weight gain and lack of TF infusion. Will add CL supplements in the interim. Orders Placed This Encounter DIET LIQUID Standing Status: Standing Number of Occurrences: 1 Order Specific Question: Liquid Diet Answer: CLEAR LIQUID Supplement 1 Frequency: 7. BREAKFAST, LUNCH, DINNER Supplement 1: ENSURE CLEAR APPLE There are no questions and answers to display. There are no questions and answers to display. Nutritional Intake Prior to Admission: Unable to determine Anthropometrics: Height: 177.8 cm (5' 10) Admission Weight: 90.7 kg (200 lb) Current Weight: 90.7 kg (200 lb) Body mass index is 28.7 kg/m?. overweight Weight has increased by 40 kg over 12 months representing 75 % weight change clinically significant Last Wt 10/27/18 : 90.7 kg (200 lb) 10/26/18 : 90.7 kg (200 lb) 08/31/18 : 83.1 kg (183 lb 3.2 oz) 01/04/18 : 57.6 kg (127 lb) 12/26/17 : 56.7 kg (125 lb) 11/30/17 : 57.6 kg (127 lb) 11/01/17 : 53.5 kg (118 lb) 10/06/17 : 52.8 kg (116 lb 8 oz) 09/28/17 : 50.1 kg (110 lb 7.2 oz) 09/21/17 : 53.8 kg (118 lb 9.6 oz) 08/07/17 : 52.2 kg (115 lb) 08/06/17 : 51.5 kg (113 lb 8.6 oz) 07/13/17 : 53.1 kg (117 lb) 04/23/17 : 53.3 kg (117 lb 9.6 oz) 04/08/17 : 54.3 kg (119 lb 11.4 oz) 04/05/17 : 54.3 kg (119 lb 11.4 oz) 03/16/17 : 56.8 kg (125 lb 3.5 oz) 01/15/17 : 60.7 kg (133 lb 14.4 oz) 09/18/16 : 64.9 kg (143 lb) 09/10/16 : 64.4 kg (142 lb) Recent Labs 10/26/18 1915 GLUC 103* BUN 9 CREAT 0.91 NA 140 K 3.0* CHLOR 96* CO2 34* ALB 4.0 HB 14.6 HCT 43.2 WBC 9.96 MNT Billing Type: Initial Assess/15 min 2 units SIGNATURE: Serge Yost RD PATIENT NAME: Kari Allan DATE: October 28, 2018 TIME: 11:27 AM PAGER: [phone] [facility] THERAPY NTon 10-28-2018 THERAPY NT HNO ID: [id number] Author: Jerry ([facility]) Huan Service: Speech/Swallow Author Type: Speech Language Pathologist Type: Therapy (PT/OT/Speech/Resp) Filed: 10/28/2018 3:20 PM Note Text: Speech Therapy Clinical Swallow Evaluation SERVICE DATE: 10/28/2018 SERVICE TIME: 1440 to 1500 ROOM: [id number] Nursing Recommendations: Reinforce use of swallowing strategies Diet Recommendations: Full Liquids Swallowing Precautions Recommendations: Alert (patient should be fully alert for P.O. intake);Sit upright 90 degrees for all PO;Small Bite/Sip;Oral Care before and after meals;Supervision/Assistanc e for meals.;Maintain an upright position 20-30 minutes following all oral intake;Feed / Eat at a slow rate Instrumental Swallow Assessment Recommendations: Modified Barium Swallow Study (MBSS) Results and Recommendations Discussed With: Patient;Nurse Recommended Discharge Disposition: Subacute/SNF Justification For Post Acute Needs: Anticipated community discharge IMPRESSION: Patient with history of dysphagia and esophageal stent denies dysphagia currently. Restricted to full liquid diet according to his halfway. Patient is unsure why. No s/s of aspiration observed with formal bedside swallow assessment which included the [place] 3 oz water challenge. Consider modified barium swallow study for further assessment of swallow function as patient would like to advance to solid food. Rehabilitation Precautions: Aspiration Precautions;Dysphagia;Cogni tive Linguistics Deficits;Modified Diet ASSESSMENT: Tolerated Full Session Alert and oriented to self and hospital. Slow to respond. Poor historian. Denied dysphagia however volitional swallow was extremely effortful for him to perform. Oral motor assessment unremarkable otherwise. Patient passed the 3 oz water challenge. Agreed with MBSS. Nurse informed. Goals for Plan of Care: Swallow Goals: Patient will tolerate Full Liquids diet consistency while utilizing compensatory/swallowing strategies given no cues in 100% of trials so that the patient will minimize the signs/symptoms of dysphagia. Patient, Caregiver, Family will demonstrate adequate return of knowledge of all compensatory strategies/instruction to effectively assist the patient in immediate safety with oral intake and swallowing. Patient will participate in a Modified Barium Swallow Study (MBS) to thoroughly evaluate the oral and pharyngeal phase of the swallow, which cannot be substantiated through a clinical swallowing evaluation only. Through further diagnostic testing a definitive diagnosis/identification of the patient's current swallowing function and recommended treatment plan can be established. Patient /Caregiver Goals: Eat/Drink Without Restrictions Progress Toward Goals: Progressing as expected Speech Rehab Potential: Good PLAN: Treatment Frequency (times per week): 2 Current admission Treatment Interventions: Dysphagia Management Plan of Care Developed with: Patient;Caregiver TREATMENT INTERVENTIONS: Therapy Diagnosis: Dysphagia, unspecified Interventions Provided: Clinical Swallow Evaluation (91149) $ Clinical Swallow Evaluation (98759) Billed Units: 1 unit Total Treatment Time (minutes): 20 SUBJECTIVE: Current Hospital Course: Chart reviewed; brought in to [facility]by ambulance??for aggressive behaviors. Noted oral temp of 99.[address] in August showed Mild infectious/inflammatory bronchiolitis scattered in both lungs. Reason for Speech Therapy Consult: dysphagia, advance diet Relevant Past Medical History: anoxic brain injury, anoxic encephalopathy, pancreatitis, seizures, esphageal stricture, COPD, and DVT, esophageal stent, dysphagia Patient Report: wants solid food Home Environment Prior Functional Level: Required Assistance Assistance Required With: Self Care;Safety Assistance Available: Other: See Comment(from SF) Prior Swallowing Function/Diet Textures: Full Liquids Please see discipline specific clinical documentation flowsheet for complete details for this therapy evaluation/treatment. SIGNATURE: Jerry Pressley [facility] SOFTWARE ARCHITECT PATIENT NAME: Kari Allan DATE: October 28, 2018 TIME: 3:12 PM [facility] Valproic Acidon 10-28-2018 Protein mass conc 14.1 ug/mL Low 50-100 [facility] Comment on above: Result Comment: Refe rence ranges and high/low indicator flags are provided as general guidelines only. The treating physician must determine appropriate target levels/dosing based on the specific clinical situation. Performed By: #### V LUISA #### [facility] [address] [place] [address] NURSING PROGon 10-27-2018 Protein mass conc HNO ID: [id number] Author: Alma Rosa (Rn) BEN Hanna Service: Nursing Author Type: Registered Nurse Type: Nursing Progress Note Filed: 10/27/2018 6:51 PM Note Text: Nursing Progress Note Patient Name: Kari Allan Patient Location: [id number]/[place] [id number]* ADMISSION NOTE: Patient admitted from [place] ED at 1700 with Dx- Impulse control disorder. Arm band placed and patient was oriented to unit. He is only alert to self and has poor short term memory. His PEG tube is clean and dry with no drainage coming from site. He is on a clear liquid diet due to recent dysphagia. Residual checked and was 0. His affect is very flat, and speech loud and monotone. He is unaware of where he's at and what brought him here. He denies SI/HI/AVH. He is wearing a depends in case of incontinence but most of the time he uses the restroom appropriately. He sits in the day area seclusive to self, non social with peers. 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 This note was completed by: Alma Rosa Hanna RN [facility] SURGICAL PATHOLOGYon 018 SURGICAL PATHOLOGY ADDENDUM PRESENT Specimen #: [id number] Physician: AVIVA BERKOWITZ MD FINAL DIAGNOSISEsophagus, biopsy at 33 cm - Mild reactive squamous mucosa and acuteinflammatory cell exudate admixed with fibrin compatible with bed of anulcer; see comment.JILL/luisa 09/17/2017 COMMENTCMV and herpes immunostains are pending; the results will be issued in anaddendum. Owen Echevarria M.D.(Electronic Signature) SPEC IMEN SUBMITTEDA: ESOPHAGEAL BIOPSY @33CM ADDENDUM Date Ordered: 09/20/2017 Date Reported: 09/20/2017 Due to the background of inflammation, CMV and HSV immunostains wereperformed and are negative for cytomegalovirus infection and Herpesinfection.Laboratory Developed Test (LDT) Disclaimer:Positive and negative controls stain appropriately. Performancecharacteristics of immunohistochemical, immunofluorescent and chromogenicin-situ hybridization tests have been determined by [facility] [facility] Ballester[facility] Pathology and Laboratory Medicine [place] (-PLMI) leandro manner consistent with CLIA requirements. One or more of these tests havenot been cleared or approved by the FDA. RT-[facility] is regulated under CLIA asqualified to perform high-complexity testing. These tests are used forclinical purposes. They should not be regarded as investigational or forresearch. JILL/goldie/09/20/17 Addendum Pathologist: Owen Echevarria M.D.Electronic Signature CLINICAL DATANone provided.GROSS DESCRIPTIONA. Received in formalin are three pieces of awite, soft tissue aggregating to0.7 x 0.2 x 0.1 cm. Totally submitted in one cassette.Gross examination performed at [facility], [address] [place] [id number] 09/16/2017 9:40:28 PMPatient ID #: Date of Report: 09/17/2017Date of Procedure: 09/16/2017Date of Receipt: 09/16/2017Submitted by: AVIVA BERKOWITZ MDLocation: RCTMRDiagnostic interpretation performed at [facility], [address] [place] [address]. Normal [facility] Reference Lab Comment on above: Performed By: #### S ####See report for performing lab information. XR MOD BARIUM SWALLOW W EAMON Espinal 05-07-2017 XR MOD BARIUM SWALLOW W SPEECH * * *Final Report* * *DATE OF EXAM: May 07 2017 12:05PM FVX [id number] - XR MOD BARIUM SWALLOW W SPEECH / REASON: OROPHARYANGEAL DYSPHAGIA * * * * Physician Interpretation * * * * VIDEO SWALLOWHISTORY: ASPIRATIONRESULT: Fluoroscopy was provided during performance of a swallowing evaluation by the speech pathologist using a total radiation exposure time of 3:08 and effective radiation dose of 27.8 mGyIMPRESSION:SPEECH PATHOLOGIST REPORT AND RECOMMENDATIONS ARE PRESENT IN THE NOTES COMPONENT OF [facility].Cycle Manager: PSCTanya Transcribe Date/Time: May 07 2017 12:56PDictated by : LISSET SIFUENTES MDThis examination was interpreted and the report reviewed and electronically signed by: LISSET SIFUENTES MD on May 07 2017 12:56PM [id number] Normal [facility] Culture, urine Bacteria identified Cx Nom (U) Mixed Gram Pos & Gram Neg Org [facility] Work Phone: Vital Signs Date Time Vital Sign Value Performing Clinician Faci lity 03-03-2024 09:29-0400 Body height 177.8 cm Andreas Lind LIBRARY CUSTOMER SERVICE CLERK.TUBULAR STOCK GLASS BULB MACHINE FORMER Work Phone: [facility] 03-03-2024 09:29-0400 Diastolic blood pressure 78 mm[Hg] Andreas Hritz LIBRARY CUSTOMER SERVICE CLERK.TUBULAR STOCK GLASS BULB MACHINE FORMER Work Phone: [facility] 03-03-2024 09:29-0400 Heart rate 100 /min Andreas Hritz LIBRARY CUSTOMER SERVICE CLERK.TUBULAR STOCK GLASS BULB MACHINE FORMER Work Phone: [facility] 03-03-2024 09:29-0400 Systolic blood pressure 116 mm[Hg] Andreas Hritz LIBRARY CUSTOMER SERVICE CLERK.TUBULAR STOCK GLASS BULB MACHINE FORMER Work Phone: [facility] 08-21-2023 08:38-0400 Body temperature 98.01 [degF] James Maravilla MD Work Phone: [facility] 08-21-2023 08:38-0400 Diastolic blood pressure 79 mm[Hg] James Maravilla MD Work Phone: [facility] 08-21-2023 08:38-0400 Heart rate 81 /min James Maravilla MD Work Phone: [facility] 08-21-2023 08:38-0400 Respiratory rate 18 /min James Maravilla MD Work Phone: [facility] 08-21-2023 08:38-0400 SaO2% (BldA) [Mass fraction] 96 % James Maravilla MD Work Phone: [facility] 08-21-2023 08:38-0400 Systolic blood pressure 112 mm[Hg] James Maravilla MD Work Phone: [employer] [facility] 08-19-2023 17:38-0400 Body height 172.7 cm James Maravilla MD Work Phone: [employer] [facility] 08-19-2023 17:38-0400 Body mass index (BMI) [Ratio] 30.44 kg/m2 James Maravilla MD Work Phone: [employer] [facility] 08-19-2023 17:38-0400 Body weight 90.81 kg James Maravilla MD Work Phone: [employer] [facility] 08-16-2023 08:34-0400 Diastolic blood pressure 85 mm[Hg] Renata Colindres MD Work Phone: [facility] 08-16-2023 08:34-0400 Heart rate 100 /min Renata Colindres MD Work Phone: [facility] 08-16-2023 08:34-0400 Respiratory rate 18 /min Renata Colindres MD Work Phone: [facility] 08-16-2023 08:34-0400 SaO2% (BldA) [Mass fraction] 95 % Renata Colindres MD Work Phone: [facility] 08-16-2023 08:34-0400 Systolic blood pressure 101 mm[Hg] Renata Colindres MD Work Phone: [facility] 08-16-2023 01:32-0400 Body height 177.8 cm Renata Colindres MD Work Phone: [facility] 08-16-2023 01:32-0400 Body mass index (BMI) [Ratio] 21.52 kg/m2 Renata Colindres MD Work Phone: [facility] 08-16-2023 01:32-0400 Body temperature 99.39 [degF] Renata Colindres MD Work Phone: [facility] 08-16-2023 01:32-0400 Body weight 68.04 kg Renata Colindres MD Work Phone: [employer] [facility] 06-07-2023 21:00-0500 Diastolic blood pressure 68 mm[Hg] James Maravilla MD Work Phone: [employer] 06-07-2023 21:00-0500 Heart rate 96 /min James Maravilla MD Work Phone: [employer] 06-07-2023 21:00-0500 Respiratory rate 18 /min James Maravilla MD Work Phone: [employer] 06-07-2023 21:00-0500 SaO2% (BldA) [Mass fraction] 97 % James Maravilla MD Work Phone: [employer] 06-07-2023 21:00-0500 Systolic blood pressure 108 mm[Hg] James Maravilla MD Work Phone: [employer] 06-07-2023 12:37-0500 Body height 177.8 cm James Maravilla MD Work Phone: [employer] [facility] 06-07-2023 12:37-0500 Body mass index (BMI) [Ratio] 31.57 kg/m2 James Maravilla MD Work Phone: [employer] [facility] 06-07-2023 12:37-0500 Body temperature 97.7 [degF] James Maravilla MD Work Phone: [employer] [facility] 06-07-2023 12:37-0500 Body weight 99.79 kg James Maravilla MD Work Phone: [employer] [facility] 05-30-2023 20:14-0500 Diastolic blood pressure 81 mm[Hg] Fan Marcial MD Work Phone: [employer] 05-30-2023 20:14-0500 Heart rate 81 /min Fan Marcial MD Work Phone: [employer] 05-30-2023 20:14-0500 Respiratory rate 18 /min Fan Marcial MD Work Phone: [employer] 05-30-2023 20:14-0500 SaO2% (BldA) [Mass fraction] 98 % Fan Marcial MD Work Phone: [employer] 05-30-2023 20:14-0500 Systolic blood pressure 118 mm[Hg] Fan Marcial MD Work Phone: [employer] [facility] 05-30-2023 13:13-0500 Body temperature 98.1 [degF] Fan Marcial MD Work Phone: [employer] 05-21-2023 20:00-0500 Body temperature 97 [degF] Franklin Landeros DO Work Phone: [employer] [facility] 05-21-2023 20:00-0500 Diastolic blood pressure 78 mm[Hg] Franklin Landeros DO Work Phone: [employer] [facility] 05-21-2023 20:00-0500 Heart rate 97 /min Franklin Landeros DO Work Phone: [facility] 05-21-2023 20:00-0500 Respiratory rate 16 /min Franklin Landeros DO Work Phone: [facility] 05-21-2023 20:00-0500 SaO2% (BldA) [Mass fraction] 97 % Franklin Landeros DO Work Phone: [facility] 05-21-2023 20:00-0500 Systolic blood pressure 110 mm[Hg] Franklin Landeros DO Work Phone: [facility] 05-17-2023 10:35-0500 Body height 177.8 cm Weroyasmin Parker MD Work Phone: [facility] 05-17-2023 10:35-0500 Body mass index (BMI) [Ratio] 32.43 kg/m2 Weroyasmin Parker MD Work Phone: [facility] 05-17-2023 10:35-0500 Body weight 102.51 kg Weroyasmin Parker MD Work Phone: [facility] 04-27-2023 10:09-0500 Body height 177.8 cm Weroyasmin Parker MD Work Phone: [facility] 04-27-2023 10:09-0500 Body mass index (BMI) [Ratio] 32.14 kg/m2 Weroyasmin Parker MD Work Phone: [facility] 04-27-2023 10:09-0500 Body weight 101.61 kg Wero Parker MD Work Phone: [facility] 04-27-2023 10:09-0500 Diastolic blood pressure 60 mm[Hg] Wero Parker MD Work Phone: [facility] 04-27-2023 10:09-0500 Heart rate 105 /min Wero Parker MD Work Phone: [facility] 04-27-2023 10:09-0500 Respiratory rate 15 /min Wero Parker MD Work Phone: [facility] 04-27-2023 10:09-0500 Systolic blood pressure 110 mm[Hg] Wero Parker MD Work Phone: [facility] 11-14-2021 06:05-0400 Body temperature 96.3 [degF] Kwame White MD Work Phone: [facility] 11-14-2021 06:05-0400 Diastolic blood pressure 74 mm[Hg] Kwame White MD Work Phone: [facility] 11-14-2021 06:05-0400 Heart rate 90 /min Kwame White MD Work Phone: [facility] 11-14-2021 06:05-0400 SaO2% (BldA) [Mass fraction] 90 % Kwame White MD Work Phone: [facility] 11-14-2021 06:05-0400 Systolic blood pressure 119 mm[Hg] Kwame White MD Work Phone: [facility] 11-14-2021 05:14-0400 Respiratory rate 18 /min Kwame White MD Work Phone: [facility] Encounters Encounter Date Encounter Type Care Provider Facility Start: 08-28-2024 End: 08-28-2024 ambulatory Antonella OLIVAS [facility] Work Phone: Start: 08-28-2024 End: 08-28-2024 Departed Referred Antonella Alvarenga [facility] Start: 08-28-2024 End: 08-28-2024 ambulatory Antonella OLIVAS Facility:[facility] Start: 08-23-2024 End: 08-23-2024 ambulatory Antonella OLIVAS [facility] Work Phone: Start: 08-23-2024 End: 08-23-2024 Departed Referred Antonella Alvarenga [facility] Start: 08-23-2024 Registered Referred Antonella [facility] [employer] [facility] Start: 08-23-2024 End: 08-23-2024 ambulatory Antonella OLIVAS Facility:[facility] Start: 07-21-2024 End: 07-21-2024 ambulatory Antonella OLIVAS [facility] Work Phone: Start: 07-21-2024 End: 07-21-2024 Departed Referred Antonella [place] [employer] Start: 07-21-2024 End: 07-21-2024 ambulatory Antonella Flavio OLIVAS Facility:[facility] Start: 06-26-2024 End: 06-26-2024 Telephone encounter Jasen López MD Work Phone: [facility] Pulmonary and Sleep Medicine [facility] Comment on above: Other (Annual Lung S creening Reminder) Start: 06-13-2024 End: 06-21-2024 Telephone encounter Antonella Maria Alejandralarry Work Phone: [facility] Clinical Communication Comment on above: Other (Patient fell with no injuries) Start: 05-09-2024 ambulatory Antonella Marrero DEISY Faci lity:[facility] Start: 05-09-2024 Registered Referred Antonella [place] [employer] Start: 04-28-2024 End: 04-28-2024 Departed Referred Antonella [place] [employer] Start: 04-28-2024 End: 04-28-2024 ambulatory Antonella OLIVAS Facility:[facility] Start: 04-20-2024 End: 04-20-2024 Departed Referred Antonella [place] [employer] Start: 04-20-2024 End: 04-20-2024 ambulatory Antonella Flavio OLIVAS Facility:[facility] Start: 03-17-2024 End: 03-17-2024 ambulatory Zackranjanvictoria Neff DEISY Facility:[facility] Start: 03-03-2024 End: 03-03-2024 ambulatory ANDREAS LIND Facility:[facility] Start: 03-03-2024 End: 03-03-2024 Office outpatient new 30 minutes Andreas Lind LIBRARY CUSTOMER SERVICE CLERK.TUBULAR STOCK GLASS BULB MACHINE FORMER Work Phone: [facility] [place] Comment on above: Anemia, unspecified type (Primary Dx); Epigastric pain Start: 02-24-2024 End: 02-24-2024 ambulatory Antonella Maria Alejandralarry OLIVAS Facility:[facility] Start: 02-18-2024 End: 02-18-2024 ambulatory Antonella Maria Alejandralarry OLIVAS Facility:[facility] Start: 02-11-2024 End: 02-11-2024 Emergency department patient visit PALLAVI RODRIGUEZ Facility:[facility] Start: 01-19-2024 End: 01-19-2024 ambulatory Antonella Maria Alejandralarry OLS Facility:[facility] Start: 01-18-2024 End: 01-18-2024 ambulatory Antonella Maria Alejandralarry OLIVAS Facility:[facility] Start: 11-22-2023 End: 11-22-2023 ambulatory Antonella OLIVAS Facility:[facility] Start: 10-27-2023 End: 10-27-2023 Office outpatient new 45 minutes Yun Rubio MD Work Phone: [facility] Urology Comment on above: Renal lesion (Primar y Dx); Elevated PSA; BPH with urinary obstruction Start: 10-27-2023 End: 10-28-2023 ambulatory ANTONELLA MIKEVICKY [facility] Start: 10-18-2023 End: 10-18-2023 ambulatory Antonella Maria Alejandralarry OLIVAS Facility:[facility] Start: 10-09-2023 Telephone encounter Pamella Allison NP Work Phone: [facility] U[facility] Comment on above: Test Scheduling Start: 10-04-2023 Registered Referred [facility] [employer] [facility] Start: 10-04-2023 End: 10-04-2023 ambulatory Antonella Maria Alejandarlarry OLIVAS Facility:[facility] Start: 10-01-2023 Registered Referred [facility] [employer] [facility] Start: 10-01-2023 End: 10-01-2023 ambulatory Antonella Maria Alejandralarry OLIVAS Facility:[facility] Start: 09-29-2023 Registered Referred [facility] [employer] [facility] Start: 09-29-2023 End: 09-29-2023 ambulatory Antonella OLIVAS Facility:[facility] Start: 09-27-2023 Registered Referred [facility] Start: 09-27-2023 End: 09-27-2023 ambulatory [place] Flavio OLIVAS Facility:[facility] Start: 09-24-2023 Registered Referred [facility] Start: 09-24-2023 End: 09-24-2023 ambulatory Antonella OLIVAS Facility:[facility] Start: 09-23-2023 End: 04-19-2024 Telephone encounter Jasen López MD Work Phone: [facility] Central Scheduling Comment on above: Sleep study Start: 09-16-2023 Registered Referred [facility] Start: 2023 Telephone encounter Wero iraheta MD Work Phone: [facility] Central Scheduling Start: 09-14-2023 Registered Referred [facility] Start: 08-30-2023 End: 08-30-2023 ambulatory [facility] Work Phone: Start: 08-30-2023 End: 08-30-2023 Departed Referred [facility] Start: 08-19-2023 End: 08-21-2023 Encounter for preprocedural cardiovascular examination [facility] Start: 08-19-2023 End: 08-21-2023 Evaluation and management of inpatient James Maravilla MD Work Phone: [facility] Cardiac Progressive Care Unit PCU 2E Comment on above: Upper GI bleeding (P rimary Dx); Abdominal pain, generalized; Right leg pain; Shortness of breath; Preop cardiovascular exam; Hx of deep venous thrombosis; Right calf pain Start: 08-19-2023 End: 08-21-2023 Patient encounter status James Maravilla MD Work Phone: [facility] Start: 08-17-2023 Emergency department patient visit PALLAVI RODRIGUEZ Facility:[facility] Start: 08-16-2023 End: 08-16-2023 Emergency department patient visit Renata Colindres MD Work Phone: [facility] ED Comment on above: Abdominal pain, unsp ecified abdominal location (Primary Dx) Start: 08-06-2023 Telephone encounter Yun nguyen MD Work Phone: [facility] Start: 08-05-2023 ambulatory Leslie Spaulding m/Onc Start: 07-09-2023 End: 07-09-2023 Patient encounter status Jasen López MD Work Phone: [facility] Start: 07-09-2023 End: 07-09-2023 Subsequent hospital visit by physician Jasen López MD Work Phone: [facility] Pulm Function Test Comment on above: Chronic bronchitis, unspecified chronic bronchitis type (HCC); Preoperative respiratory examination Start: 07-09-2023 End: 07-09-2023 ambulatory [facility] Start: 07-09-2023 End: 07-09-2023 Encounter for preprocedural respiratory examination [facility] Start: 06-28-2023 End: 06-28-2023 Departed Referred [facility] [employer] Start: 06-09-2023 Telephone encounter Yun nguyen MD Work Phone: [facility] Start: 06-09-2023 Registered Referred [facility] [employer] Start: 06-07-2023 ambulatory Leslie Spaulding m/Onc Start: 06-07-2023 End: 06-07-2023 Emergency department patient visit James Maravilla MD Work Phone: [facility] ED Comment on above: Altered mental statu s, unspecified altered mental status type (Primary Dx); Acute midline low back pain without sciatica; Encephalopathy Start: 06-02-2023 End: 06-02-2023 Departed Referred [facility] [employer] Start: 06-02-2023 Registered Referred [facility] [employer] Start: 06-01-2023 Telephone encounter Yun nguyen MD Work Phone: [facility] Urology Comment on above: Appointment Start: 05-30-2023 End: 05-30-2023 Emergency department patient visit Fan Marcial MD Work Phone: [facility] ED Comment on above: Generalized abdomina l pain (Primary Dx); Renal mass Start: 05-25-2023 End: 05-25-2023 ambulatory [facility] Work Phone: Start: 05-25-2023 End: 05-25-2023 Departed Referred [facility] [employer] [facility] Start: 05-20-2023 End: 05-20-2023 Evaluation and management of inpatient [facility] [employer] [facility] Radiology Comment on above: Arrived Start: 05-19-2023 End: 05-19-2023 Subsequent hospital visit by physician [facility] [address] Exam Room [address] [facility] [address] Comment on above: Canceled (Other: Can celed via Interface) Start: 05-19-2023 End: 05-21-2023 Evaluation and management of inpatient Franklin Landeros DO Work Phone: [facility] Medical Surgical Unit MSU 4S Comment on above: COVID (Primary Dx); Hypoxia Start: 05-17-2023 End: 05-17-2023 Subsequent hospital visit by physician Wero Parker MD Work Phone: [facility] Non-Invasive Cardiology Comment on above: Cardiomyopathy, unsp ecified type (HCC) Start: 04-27-2023 End: 04-27-2023 Office outpatient new 45 minutes Wero Parker MD Work Phone: [facility] Cardiology Comment on above: Cardiomyopathy, unsp ecified type (HCC) (Primary Dx); Shortness of breath; Preop cardiovascular exam; Essential hypertension; Tobacco abuse Start: 04-27-2023 End: 04-27-2023 Patient encounter status Wero Parker MD Work Phone: [facility] Start: 04-05-2023 End: 04-05-2023 ambulatory [facility] Work Phone: Start: 04-05-2023 End: 04-05-2023 Departed Referred [facility] [employer] Start: 04-02-2023 Patient encounter status Wero Parker MD Work Phone: [facility] Start: 04-02-2023 [facility] Start: 02-17-2023 End: 02-17-2023 ambulatory [facility] Work Phone: Start: 02-17-2023 End: 02-17-2023 [facility] [employer] Start: 02-17-2023 [facility] Start: 02-15-2023 End: 02-15-2023 ambulatory [facility] Work Phone: Start: 02-15-2023 End: 02-15-2023 [facility] [employer] Start: 11-26-2022 End: 11-26-2022 ambulatory [facility] Work Phone: Start: 11-26-2022 End: 11-26-2022 [facility] [employer] Start: 11-26-2022 [facility] [employer] Start: 11-25-2022 End: 11-25-2022 ambulatory [facility] Work Phone: Start: 11-25-2022 End: 11-25-2022 [facility] [employer] Start: 10-08-2022 End: 10-08-2022 Departed Referred [facility] Start: 09-17-2022 End: 09-17-2022 ambulatory [facility] Work Phone: Start: 09-17-2022 End: 09-17-2022 [facility] Start: 08-26-2022 End: 08-26-2022 ambulatory [facility] Work Phone: Start: 08-26-2022 End: 08-26-2022 [facility] Start: 07-15-2022 End: 07-15-2022 ambulatory [facility] Work Phone: Start: 07-15-2022 End: 07-15-2022 [facility] Start: 07-15-2022 [facility] Start: 07-08-2022 End: 07-08-2022 [facility] Start: 07-08-2022 [facility] Start: 07-06-2022 End: 07-06-2022 ambulatory [facility] Work Phone: Start: 07-06-2022 End: 07-06-2022 [facility] Start: 07-06-2022 [facility] Start: 07-01-2022 End: 07-01-2022 [facility] Start: 07-01-2022 [facility] Start: 06-29-2022 End: 06-29-2022 ambulatory [facility] Work Phone: Start: 06-29-2022 End: 06-29-2022 [facility] Start: 06-25-2022 End: 06-25-2022 ambulatory [facility] Work Phone: Start: 06-25-2022 End: 06-25-2022 [facility] Start: 06-25-2022 [facility] Start: 06-10-2022 End: 06-10-2022 ambulatory [facility] Work Phone: Start: 06-10-2022 End: 06-10-2022 Departed [facility] [employer] [facility] Start: 06-10-2022 [facility] Start: 05-27-2022 End: 05-27-2022 ambulatory [facility] Work Phone: Start: 05-27-2022 End: 05-27-2022 [facility] Start: 05-27-2022 [facility] Start: 05-04-2022 End: 05-04-2022 ambulatory [facility] Work Phone: Start: 05-04-2022 End: 05-04-2022 [facility] Start: 04-10-2022 End: 04-10-2022 ambulatory [facility] Work Phone: Start: 04-10-2022 End: 04-10-2022 [facility] Start: 02-18-2022 End: 02-18-2022 ambulatory [facility] Work Phone: Start: 02-18-2022 End: 02-18-2022 [facility] Start: 02-18-2022 [facility] Start: 02-03-2022 End: 02-03-2022 ambulatory [facility] Work Phone: Start: 02-03-2022 End: 02-03-2022 [facility] Start: 02-03-2022 [facility] Start: 01-16-2022 End: 01-16-2022 ambulatory [facility] Work Phone: Start: 01-16-2022 End: 01-16-2022 [facility] Start: 12-04-2021 [facility] Start: 11-24-2021 Registered Referred [facility] [employer] Start: 11-13-2021 End: 11-14-2021 Emergency department patient visit Kwame White MD Work Phone: [facility] Comment on above: Dyspnea and respirat ory abnormalities (Primary Dx); Bronchitis Start: 10-21-2021 End: 10-21-2021 Departed Referred [facility] [employer] Start: 10-21-2021 Registered Referred [facility] [employer] Start: 10-06-2021 End: 10-06-2021 Departed Referred [facility] [employer] Start: 10-06-2021 Registered Referred [facility] [employer] Start: 09-29-2021 End: 09-29-2021 Departed Referred [facility] [employer] Start: 05-07-2017 Ambulatory [facility] Procedures Date Procedure Procedure Detail Performing Clinician Start: 05-08-2024 Urine culture Antonella OLIVAS Start: 02-11-2024 Antibody screen PALLAVI RODRIGUEZ Comment on above: Order Comment: Specimen Type: BLOOD SPEC IMEN Ordering Facility: [facility] Address: [address] [place] [address] Performed By: #### T SCR #### [facility] [id number] [address] [place] [address] [place] Start: 10-01-2023 Urine culture Start: 09-29-2023 Urine culture Start: 09-13-2023 Urine culture Start: 08-21-2023 SARS-CoV-2 (COVID-19) Ag [Presence] in Respiratory specimen by Rapid immunoassay Chantelle Dean MD Work Phone: Start: 08-21-2023 Blood count hematocrit Chantelle Dean MD Work Phone: Start: 08-21-2023 Basic metabolic panel calcium total Chantelle Dean MD Work Phone: Start: 08-20-2023 Blood count hematocrit Chantelle Dean MD Work Phone: Start: 08-20-2023 End: 08-20-2023 Esophagogastroduodenoscopy transoral diagnostic Galileo Forrester MD Work Phone: Start: 08-20-2023 Blood count hematocrit Chantelle Dean MD Work Phone: Start: 08-20-2023 Dup-scan xtr veins complete bilateral study Chantelle Dean MD Work Phone: Start: 08-20-2023 Basic metabolic panel calcium total Chantelle Dean MD Work Phone: Start: 08-20-2023 Manual Differential panel - Blood Chantelle Mendoza MD Work Phone: Start: 08-19-2023 Glucose quantitative blood xcpt reagent strip Chantelle Dean MD Work Phone: Start: 08-19-2023 Blood occult peroxidase actv qual feces 1-3 spec James Maravilla MD Work Phone: Start: 08-19-2023 Basic metabolic panel calcium total James Maravilla MD Work Phone: Start: 08-19-2023 US scan of abdominal aorta James mckeon MD Work Phone: Start: 08-16-2023 Ct abdomen & pelvis w/contrast material Renata Colidnres MD Work Phone: Start: 08-16-2023 Urinalysis complete panel - Urine Elieser Colindres MD Work Phone: Start: 08-16-2023 Urnls dip stick/tablet rgnt auto w/o microscopy Renata Colindres MD Work Phone: Start: 08-16-2023 Comprehensive metabolic panel Renata Colindres MD Work Phone: Start: 08-16-2023 Radex hip unilateral with pelvis 2-3 views Renata Colindres MD Work Phone: Start: 07-09-2023 Brncdilat rspse spmtry pre&post-brncdilat admn Masroor López MD Work Phone: Start: 06-07-2023 Drug tst prsmv instrmnt chem analyzers pr date Billy Gan APRN [facility] Work Phone: Start: 06-07-2023 Urinalysis complete panel - Urine [facility] Work Phone: Start: 06-07-2023 Urnls dip stick/tablet reagent auto microscopy [facility] Work Phone: Start: 06-07-2023 Radex spine lumbosacral 2/3 views [facility] Work Phone: Start: 06-07-2023 Ct head/brain w/o contrast material [facility] Work Phone: Start: 06-07-2023 Radiologic exam chest single view [facility] Work Phone: Start: 06-07-2023 Ecg routine ecg w/least 12 lds trcg only w/o i&r Billy Gan [facility] Work Phone: Start: 06-07-2023 Comprehensive metabolic panel Billy farnsworth [facility] Work Phone: Start: 06-07-2023 Drug test def 1-7 classes Billy Gan [facility] Work Phone: Start: 06-02-2023 Urine culture Start: 05-30-2023 Ct abdomen & pelvis w/contrast material Fan Marcial MD Work Phone: Start: 05-30-2023 Comprehensive metabolic panel Fan rivera MD Work Phone: Start: 05-21-2023 End: 05-21-2023 Radex spine lumbosacral 2/3 views Ashlie M Esterle DO Work Phone: Start: 05-21-2023 C-reactive protein Ashlie M Esterle DO Work Phone: Start: 05-20-2023 C-reactive protein Ashlie M Esterle DO Work Phone: Start: 05-20-2023 Procalcitonin (pct) Ashlie Alcantara DO Work Phone: Start: 05-20-2023 Urinalysis complete panel - Urine Franklin Landeros DO Work Phone: Start: 05-20-2023 Urnls dip stick/tablet reagent auto microscopy Franklin Landeros DO Work Phone: Start: 05-20-2023 Assay of lactate Franklin Landeros DO Work Phone: Start: 05-20-2023 Assay of lactate Franklin Landeros DO Work Phone: Start: 05-20-2023 Radiologic exam chest single view Franklin Landeros DO Work Phone: Start: 05-20-2023 Ct head/brain w/o contrast material Franklin Landeros DO Work Phone: Start: 05-19-2023 SARS-COV-2, FLU A/B, AND RSV COMBO Rico wallace Landeros DO Work Phone: Start: 05-19-2023 Bacteria identified in Blood by Culture Franklin Landeros DO Work Phone: Start: 05-19-2023 Basic metabolic panel calcium total Franklin Landeros DO Work Phone: Start: 05-19-2023 Ecg routine ecg w/least 12 lds trcg only w/o i&r Franklin Landeros DO Work Phone: Start: 05-17-2023 TTE w or wo fol lillianDoppler Wero morales MD Work Phone: Start: 04-27-2023 Ecg routine ecg w/least 12 lds w/i&r Wero Parker MD Work Phone: Start: 11-14-2021 Ct angiography chest w/contrast/noncontrast Saidaradha Carvalho DO Work Phone: Start: 11-14-2021 Assay of ammonia Kwame White MD Work Phone: Start: 11-14-2021 Radiologic exam chest 2 views Kwame bobby MD Work Phone: Start: 11-14-2021 COVID-19, FLU A/B, AND RSV COMBO Kwame rodriguez MD Work Phone: Start: 11-14-2021 Basic metabolic panel calcium total Kwame White MD Work Phone: Start: 12-05-2019 Lipid 1996 panel - Serum or Plasma Mariana Lind LIBRARY CUSTOMER SERVICE CLERK.TUBULAR STOCK GLASS BULB MACHINE FORMER Work Phone: Urine culture Urine culture Plan of Treatment Date Care Activity Detail Author Start: 09-16-2043 RSV Immunization for Adults (1 - 1-dose 75+ series) RSV Immunization for Adults (1 - 1-dose 75+ series) [facility] Start: 2028 RSV Immunization age d 60 or older (1 - 1-dose 60+ series) RSV Immunization aged 60 or older (1 - 1-dose 60+ series) [facility] Start: 02-10-2027 Diabetes Screening Diabetes Screenin g [facility] Start: 12-24-2024 End: 06-26-2025 CT Chest for screening WO contrast CT lung screening low dose Imaging Routine Tobacco abuse Expected: 12/24/2024, Expires: 06/26/2025 [facility] Work Phone: Comment on above: Expected: 12/24/2024 , Expires: 06/26/2025 Start: 12-04-2024 Lipid panel Lipid Screening [facility] Start: 08-18-2024 Screening for malign ant neoplasm of colon [facility] Start: 05-06-2024 Screening for malign ant neoplasm of lung Lung Cancer Screening [facility] Start: 01-30-2024 COVID-19 Vaccine ( season) COVID-19 Vaccine ( season) [facility] Start: 01-30-2024 Covid-19 Vaccine ( season) Covid-19 Vaccine () [facility] Start: 01-30-2024 Influenza vaccination S [facility] Start: 10-27-2023 End: 10-26-2024 PSA, total and free PSA, total and free Lab Routine Elevated PSA Expected: 10/27/2023 (Approximate), Expires: 10/26/2024 [facility] Work Phone: Comment on above: Expected: 10/27/2023 (Approximate), Expires: 10/26/2024 Start: 10-27-2023 End: 10-27-2023 Patient encounter procedure [facility] Start: 09-16-2023 Prostate specific antigen measurement Prostate Cancer Screening Discussion [facility] Start: 07-14-2023 End: 07-14-2023 Patient encounter procedure 07/14/2023 1:00 PM EST Office Visit [facility] [address] [place] [address] Yun Rubio MD [address] [place] [address] [facility] Start: 07-09-2023 End: 07-09-2023 Patient encounter procedure 07/09/2023 2:00 PM EST Appointment [facility] Pulm Function Test [address] [place] [id number] Jasen López MD [address] [place] [address] [facility] Pulm Function Test Start: 06-11-2023 End: 06-11-2023 Patient encounter procedure 06/11/2023 9:45 AM EST Office Visit [facility] [address] [facility] [facility] [place] [id number] Jasen López MD [address] [place], [place] [id number] [facility] Start: 06-01-2023 End: 06-01-2023 Patient encounter procedure 06/01/2023 2:00 PM EST Appointment [facility] Function Test [address] [place] [phone] [facility] Pulm Function Test Start: 06-01-2023 Subsequent hospital visit by physician 06/01/2023 2:00 PM EST Hospital Encounter [facility] Pulm Function Test [address] [place] [address] [facility] Pulm Function Test Start: 06-01-2023 End: 11-30-2023 US Retroperitoneum US retroperitoneum Imaging Routine Acquired renal cyst of left kidney Expected: 06/01/2023, Expires: 11/30/2023 [facility] Work Phone: Comment on above: Expected: 06/01/2023 , Expires: 11/30/2023 Start: 05-06-2023 Subsequent hospital visit by physician 05/06/2023 9:15 AM EST Hospital Encounter [facility] [address] [place] [address] Jasen López MD [address] [place] [address] [facility] [address] Start: 04-27-2023 End: 04-27-2025 US Heart Transthoracic Transthoracic echocardiogram (TTE) complete with contrast, bubble, strain, and 3D PRN CV Echocardiography Routine Cardiomyopathy, unspecified type (HCC) Expected: 04/27/2023 (Approximate), Expires: 04/27/2025 [facility] Work Phone: Comment on above: Expected: 04/27/2023 (Approximate), Expires: 04/27/2025 Start: 04-08-2023 Screening for malign ant neoplasm of lung Lung Cancer Screening [facility] Start: 01-29-2023 COVID-19 Vaccine ( season) COVID-19 Vaccine ( season) [facility] Start: 01-29-2023 Influenza vaccination Influenza Vacc ine (#1) [facility] Start: 02-21-2022 [facility] Start: 01-29-2022 Influenza vaccination Flu vacc ine (Season Ended) [facility] Start: 2018 Shingles vaccine (1 of 2) Shingles vaccine (1 of 2) [facility] Start: 2018 Shingrix Vaccine (1 of 2) Shingrix Vaccine (1 of 2) [facility] Start: 2018 Zoster Vaccines (1 of 2) Zoster Vacc quincy (1 of 2) [facility] Start: 02-14-2018 Screening for malign ant neoplasm of colon [facility] Start: 06-08-2014 Pneumococcal 0-64 ye ars Vaccine (2 - PCV) Pneumococcal 0-64 years Vaccine (2 - PCV) [facility] Start: 06-08-2014 Pneumococcal vaccination Pneum ococcal Vaccine (2 of 2 - PCV) [facility] Start: 06-08-2014 Pneumococcal Vaccine : 50+ Years (2 of 2 - PCV) Pneumococcal Vaccine: 50+ Years (2 of 2 - PCV) [facility] Start: 06-08-2014 Pneumococcal Vaccine : Pediatrics (0 to 5 Years) and At-Risk Patients (6 to 64 Years) (2 - PCV) Pneumococcal Vaccine: Pediatrics (0 to 5 Years) and At-Risk Patients (6 to 64 Years) (2 - PCV) [facility] Start: 06-08-2014 Pneumococcal Vaccine : Pediatrics (0 to 5 Years) and At-Risk Patients (6 to 64 Years) (2 of 2 - PCV) Pneumococcal Vaccine: Pediatrics (0 to 5 Years) and At-Risk Patients (6 to 64 Years) (2 of 2 - PCV) [facility] Start: 2013 Screening for malign ant neoplasm of colon [facility] Start: 09-16-1987 DTaP/Tdap/Td vaccine (1 - Tdap) DTaP/Tdap/Td vaccine (1 - Tdap) [facility] Start: 09-16-1987 DTaP/Tdap/Td Vaccine s (1 - Tdap) DTaP/Tdap/Td Vaccines (1 - Tdap) [facility] Start: 09-16-1987 Hepatitis A Vaccines (1 of 2 - Risk 2-dose series) Hepatitis A Vaccines (1 of 2 - Risk 2-dose series) [facility] Start: 09-16-1987 Hepatitis B Vaccine (1 of 3 - 19+ 3-dose series) Hepatitis B Vaccine (1 of 3 - 19+ 3-dose series) [facility] Start: 09-16-1987 Hepatitis B Vaccines (1 of 3 - 19+ 3-dose series) Hepatitis B Vaccines (1 of 3 - 19+ 3-dose series) [facility] Start: 09-16-1987 Urine microalbumin profile DTaP,Tdap,Td Vaccine (1 - Tdap) [facility] Start: 1986 Annual PCP Team Business Systems Advisor madi Disease Visit Annual PCP Team Chronic Disease Visit [facility] Start: 1986 Diabetes mellitus screening Diabetes Screening [facility] Start: 1986 Hepatitis C screening Hepatitis C Sc reening [facility] Start: 1986 HIV screening HIV Screening [facility] Start: 09-16-1983 HIV screening HIV screen [facility] Start: 1980 Depression Monitoring Depression Mon itoring [facility] Start: 1980 Depression Screen Depression Screen [facility] Start: 1980 Depression Screening Depression Scre ening [facility] Start: 1973 COVID-19 Vaccine (1) COVID-19 Vaccin e (1) [facility] Start: 1969 MMR Vaccines (1 of 1 - Standard series) MMR Vaccines (1 of 1 - Standard series) [facility] Start: 1968 Hepatitis B Vaccines (1 of 3 - 3-dose series) Hepatitis B Vaccines (1 of 3 - 3-dose series) [facility] Start: 1968 HIV screening HIV Screening [facility] Start: 1968 Lipid panel Lipid Panel [facility] Start: 1968 Screening for malign ant neoplasm of colon [facility] Bacteria identified in Blood by Culture [facility] Work Phone: End: 05-20-2023 Bacteria identified in Lower respiratory specimen by Aerobe culture Respiratory culture and Stain Microbiology Routine Once (Lab) for 1 Occurrences starting 05/20/2023 until 05/20/2023 [facility] Comment on above: Once (Lab) for 1 Occ urrences starting 05/20/2023 until 05/20/2023 Complete PFT pre and post bronchodilator Complete PFT pre and post bronchodilator PFT Routine Chronic bronchitis, unspecified chronic bronchitis type (HCC) Preoperative respiratory examination 07/09/2023 2:45 PM EST [facility] Work Phone: End: 03-03-2025 EGD DIAGNOSTIC EGD DIAGNOSTIC Endoscopy Routine Anemia, unspecified type Epigastric pain 1 Occurrences starting 03/03/2024 until 03/03/2025 [facility] Comment on above: 1 Occurrences starti ng 03/03/2024 until 03/03/2025 End: 03-03-2025 Flexible sigmoidoscopy study COLONOSCOPY DIAGNOSTIC Endoscopy Routine Anemia, unspecified type 1 Occurrences starting 03/03/2024 until 03/03/2025 [facility] Work Phone: Comment on above: 1 Occurrences starti ng 03/03/2024 until 03/03/2025 End: 08-19-2023 Hemoglobin.gastrointesti nal.lower [Presence] in Stool by Immunoassay --1st specimen Occult blood, stool Microbiology Routine Once (Lab) for 1 Occurrences starting 08/19/2023 until 08/19/2023 [facility] Work Phone: Comment on above: Once (Lab) for 1 Occ urrences starting 08/19/2023 until 08/19/2023 End: 05-20-2023 Legionella pneumophila Ag [Presence] in Urine by Immunoassay Legionella pneumophila Urine Antigen Microbiology Routine Once (Lab) for 1 Occurrences starting 05/20/2023 until 05/20/2023 [facility] Work Phone: Comment on above: Once (Lab) for 1 Occ urrences starting 05/20/2023 until 05/20/2023 End: 06-07-2023 Levetiracetam level [facility] Work Phone: Comment on above: Once (Lab) for 1 Occ urrences starting 06/07/2023 until 06/07/2023 Immunizations Immunization Date Immunization Notes Care Provider Nitesh alvarez 05-21-2023 influenza vac subuni t quadrivalent (Flucelvax) injection 0.5 mL Franklin Landeros DO Work Phone: [facility] 04-06-2017 influenza, injectabl e, quadrivalent, preservative free Andreas Lind APRN.CNP Work Phone: [facility] 04-06-2017 influenza virus vacc ine, unspecified formulation Wero Parker MD Work Phone: [facility] 02-26-2015 influenza virus vacc ine, whole virus Kwame White MD Work Phone: [facility] 06-08-2013 influenza virus vacc ine, unspecified formulation Andreas Lind LIBRARY CUSTOMER SERVICE CLERK.TUBULAR STOCK GLASS BULB MACHINE FORMER Work Phone: [facility] 06-08-2013 pneumococcal polysaccharide vaccine, 23 valent Andreas Lind LIBRARY CUSTOMER SERVICE CLERK.TUBULAR STOCK GLASS BULB MACHINE FORMER Work Phone: [facility] 02-17-2013 pneumococcal polysaccharide vaccine, 23 valent Kwame White MD Work Phone: [facility] Work Phone: Payers Date Payer Category Payer Self-pay [id number] 2018 Medicaid [id number] 2015 Medicaid [id number] Unknown [id number] 2.16.8 [id number] Unknown [id number] 2.16.8 [id number] Unknown [id number] 2.16.8 [id number] Unknown [id number] 2.16.8 [id number] Unknown [id number] 2.16.8 [id number] Unknown [id number] 2.16.8 [id number] Unknown [id number] 2.16.8 [id number] Unknown [id number] 2.16.8 [id number] Unknown [id number] 2.16.8 [id number] Unknown [id number] 2.16.8 [id number] Unknown [id number] 2.16.8 [id number] Unknown [id number] 2.16.8 [id number] Unknown [id number] 2.16.8 [id number] Unknown [id number] 2.16.8 [id number] Unknown [id number] 2.16.8 [id number] Unknown [id number] 2.16.8 [id number] Unknown [id number] 2.16.8 [id number] Unknown [id number] 2.16.8 [id number] Unknown [id number] 2.16.8 [id number] Social History Date Type Detail [facility] Work Phone: Start: 1970 Sex Assigned At Male [facility] Start: 11-14-2021 [facility] [employer] Work Phone: History of tobacco use Cigarette Smoker [facility] Work Phone: Start: 11-14-2021 End: 08-19-2023 Cigarettes smoked current (pack per day) - Reported 0.5 [employer] Work Phone: Start: 11-14-2021 End: 07-09-2023 Tobacco use and exposure Smokeless tobacco non-user [employer] Phone: Start: 11-14-2021 End: 03-03-2024 Alcohol intake Ex-drinker (finding) [employer] Work Phone: Start: 02-14-2017 History SDOH Alcohol Comment pt states makes 2 stiff drinks with vodka, 3-4 times a week [employer] Work Phone: Start: 1970 Sex Assigned At Not on file [facility] Work Phone: Start: 11-04-2021 End: 11-14-2021 Exposure to SARS-CoV-2 (event) Not sure [employer] Work Phone: Start: 04-02-2023 End: 07-09-2023 Tobacco smoking status [facility] Occasional tobacco smoker [facility] Start: 04-02-2023 End: 08-20-2023 Alcohol intake Current drinker of alcohol (finding) [facility] Start: 04-02-2023 End: 08-19-2023 Tobacco use panel [facility] How often to you hav e a drink containing alcohol? Monthly or less [facility] How many standard drinks containing alcohol do you have on a typical day? 1 or 2 [facility] [facility] How often do you hav e 6 or more drinks on 1 occasion? Never [facility] Within the last year , have you been afraid of your partner or ex-partner? Patient unable to answer [facility] Has the [employer], [employer], or Enlighted threatened to shut off services in your home in past 12Mo No [facility] Are you now , , , , never or living with a partner? [facility] How often to you hav e a drink containing alcohol? 4 or more times a week [facility] How many standard drinks containing alcohol do you have on a typical day? 3 or 4 [facility] Do you feel stress - tense, restless, nervous, or anxious, or unable to sleep at night because your mind is troubled all the time - these days [OSQ] Not at all [facility] (I/We) worried noman er (my/our) food would run out before (I/we) got money to buy more. Never true [facility] Start: 01-18-2020 [facility] Start: 01-18-2020 Alcohol Comment past hx of etoh abus e [facility] Start: 12-29-2021 End: 09-14-2024 Sex Male (finding) [facility] if ever smoked [facility] Work Phone: Clinical Notes 11-14-2021 to 07-06-2024 Telephone Encounter - eCce Meadows RCP - 07/06/2024 1:58 PM ESTTelephone Encounter - Cece Meadows RCP - 07/06/2024 1:58 PM ESTTelephone Encounter - Jasen López MD - 06/26/2024 12:42 PM EST Note Date & Type Note Facility 07-06-2024 Note Sent secure chat mes jonathan to [facility] scheduling to please contact patient directly to assist with scheduling. Also mailed referral for imaging and number to [facility] scheduling to patient at home address. [facility] 07-06-2024 Telephone encounter Note Sent secure chat message to [facility] scheduling to please contact patient directly to assist with scheduling. Also mailed referral for imaging and number to [facility] scheduling to patient at home address. [facility] 07-06-2024 Miscellaneous Notes Sent secure chat message to [facility] scheduling to please contact patient directly to assist with scheduling. Also mailed referral for imaging and number to [facility] scheduling to patient at home address. Please schedule This patient has had a prior lung screening CT scan at [facility]. According to our records, he/she is now due for an annual lung screening CT scan. Please evaluate and order this annual screening if your patient still meets lung screening criteria. documented in this encounter [facility] 06-26-2024 Telephone encounter Note Please schedule [facility] 06-26-2024 Miscellaneous Notes Please schedule This patient has had a prior lung screening CT scan at [facility]. According to our records, he/she is now due for an annual lung screening CT scan. Please evaluate and order this annual screening if your patient still meets lung screening criteria. documented in this encounter [facility] 06-26-2024 Telephone encounter Note This patient has had a prior lung screening CT scan at [facility]. According to our records, he/she is now due for an annual lung screening CT scan. Please evaluate and order this annual screening if your patient still meets lung screening criteria. [facility] 06-13-2024 Telephone encounter Note Name of caller: Melissa Contact phone number: [phone] Relationship to Patient: [facility] Provider: Dr. Marrero Practice: [facility] Chief Complaint/Reason for Call: Melissa stated that the Patient fell with no injures. Just letting the office know. Best time of day caller can be reached: AM Patient advised that office/PCP has 24-48 business hours to return their call: No [facility] 06-13-2024 Miscellaneous Notes Name of caller: Melissa Contact phone number: [phone] Relationship to Patient: [facility] Provider: Dr. Marrero Practice: [facility] Chief Complaint/Reason for Call: Melissa stated that the Patient fell with no injures. Just letting the office know. Best time of day caller can be reached: AM Patient advised that office/PCP has 24-48 business hours to return their call: No documented in this encounter [facility] 03-03-2024 Instructions Andreas Lind APRN.TUBULAR STOCK GLASS BULB MACHINE FORMER - 03/03/2024 9:39 AM EDT COLONOSCOPY BOWEL PREPARATION INSTRUCTIONS GOLYTELY/NULYTELY/TRILYTE/COLYTE Your doctor has scheduled you for a colonoscopy. To have a successful colonoscopy, you must have a clean colon, that is empty. A clean colon allows your doctor to see the entire colon & diagnose issues like polyps or cancer. For doctors, a clean colon is like driving on a jayne day; a dirty colon like driving in a storm. It is very important that you follow these instructions exactly, or your colonoscopy might not be as effective, could be canceled, and you may need to do the bowel prep and the colonoscopy again. TRANSPORTATION REQUIREMENTS You are receiving IV sedation. For your safety, a responsible adult escort must accompany you to and from your procedure: Your adult escort MUST be present with you at check-in for your colonoscopy. Your adult escort MUST remain in the endoscopy area until you are discharged. Your adult escort MUST transport you home once you are discharged. You are NOT allowed to operate any form of transportation (i.e. drive a car, bicycle, etc.) or leave the Endoscopy Center ALONE. It is not safe to do so. If you cannot meet these requirements, your procedure will be canceled. MEDICATION REQUIREMENTS For your safety, certain medications will need to be stopped or adjusted before you can have your procedure: BLOOD THINNERS: If you take blood thinners, such as Coumadin (warfarin), Plavix (clopidogrel), Ticlid (ticlopidine hydrochloride), Agrylin (anagrelide), Xarelto (Rivaroxaban), Pradaxa (Dabigatran), Eliquis (Apixaban), or Effient (Prasugrel), contact the physician who is prescribing these medications at least 2 weeks prior to your procedure to discuss any necessary adjustments. DIABETES: If you take medications for diabetes, your dosage may need to be adjusted. If you are being treated for diabetes with insulin, diabetic pills, or other injectable medications do not take your REGULAR dose after midnight on the day of your procedure. If you are taking any other types of insulin such as Lantus, Humalog, NPH (long-acting insulin), or 70/30 insulin, take half your normal dose the day before your procedure. DIABETES/WEIGHT MANAGEMENT: If you take medications for weight-loss, your dosage may need to be adjusted Contact the doctor who prescribes this medication for further instructions. If you take medications for weight-loss like semaglutide (Ozempic, Wegovy, Rybelsus), dulaglutide (Trulicity), liraglutide (Victoza, Saxenda), exenatide (Byetta, Bydureon), or lixisenatide (Adylyxin), stop your medication 1 week prior to your procedure. If you take medications like canagliflozin (Invokana), dapagliflozin (Farxiga, Forxiga), empagliflozin (Jardiance), or ertugliflozin (Steglatro), stop your medication 1 day prior to your procedure. IRON: If you take iron pills, STOP them 1 week BEFORE your procedure, may resume after. OTHER MEDS: May take all other medications (including aspirin, antibiotics, water pills / diuretics like Lasix or Metolozone, blood pressure meds, etc.) at their usual scheduled time with a sip of water. DIET REQUIREMENTS The day before your colonoscopy, you may have a clear liquid diet (see below). The day of your colonoscopy, you may continue a clear liquid diet until 3 hours before your colonoscopy. Within 3 hours of your colonoscopy, take only any medications (as above) with a sip of water. Clear Liquid Diet Broth (chicken, beef or vegetable broth or bullion. Just the broth, no solids). Water Coffee or Tea (NO milk or creamer), but sugar and sugar substitutes are allowed. Clear liquids including clear, yellow, green, blue (NO red, NO orange, NO purple) Sodas / soft drinks Gatorade or other sports drinks Ronak-Aid or flavored drinks Plain Jell-O or other gelatins Fruit juice (strained; no-pulp) Popsicles or hard candy BOWEL PREPARATION (GOLYTELY/NULYTELY/TRILYTE/COLYTE) Split Dosing Bowel Prep: This means drinking your bowel prep in two doses. Split dosing helps clean your colon better and makes it less likely that your procedure will be canceled. Fill your prescription for Golytely/Nulytely/Trilyte/Colyte: The afternoon before your colonoscopy, mix the solution and refrigerate. You may add the flavor pack (if present) that came with the bowel preparation. Do not add ice, sugar, or other flavorings to the solution. You will drink your prep in two doses, by several hours. On the evening before your colonoscopy: 1. 6 PM drink the first half of the bowel preparation solution. Drink one 8-ounce glass every 15 minutes. 2. Six hours before your colonoscopy, drink the second half of the solution. Drink one 8-ounce glass every 15 minutes. 3. You may continue a clear liquid diet until 3 hours before your colonoscopy. Bowel prep can work differently from person to person. Some people's bowels move slowly and they may need different instructions. Please see your doctor in office or virtually for personalized bowel prep instructions if you have: Medical condition that needs special accommodations Had a poor bowel prep results or failed bowel prep attempts in the past. Had difficulty with anesthesia during the procedure. FREQUENTLY ASKED QUESTIONS Q: What if I suffer from constipation? A: Recommend taking extra laxatives to resolve your constipation days prior to entering the bowel prep day. Q: What if have had prior poor preps results in past? A: Contact your physician as you will likely need additional bowel prep instructions. Q: What if I have motility issues like Parkinson's, MS (multiple sclerosis), wheelchair dependent, etc.? or on medications that slow bowel emptying (narcotics, gabapentin, anticholinergic medications etc.) A: Contact your physician as you will likely need extra time and additional laxatives to complete your bowel prep. Q: What if I cannot drink large volume of liquid? A: Start your prep 2-3 hours earlier to allow yourself more time to complete the entire prep. Q: What if I can't finish my bowel prep? A: If you cannot finish your entire bowel prep, it is likely that your colonoscopy will need to be rescheduled due to poor prep quality. Q: What if I had bariatric surgery? Do I still have to complete the entire prep? A: Yes, gastric bypass surgery involves the stomach & small bowel. You may need to drink smaller amounts, slower (may need more time to complete your bowel prep). Gastric bypass does not alter the length of your colon so you will need to complete the entire bowel prep, it may just take longer time to complete it. Q: What if I am on dialysis? A: Please consult your business investor prior to scheduling to get instructions pertinent to you. In general, dialysis patients take the Golytely bowel prep and have the procedure same day of their dialysis (colonoscopy in AM, dialysis in PM). Q: How do I know if something is considered as clear liquid diet? A: If you can pour it in a glass and you can see through it, it is considered clear liquid Q: Can I eat nuts, seeds, beans, popcorn, dried fruits, vegetables & fruits that have skin peel? A: No, you will need to not eat these items starting 3 days prior to procedure. Q: Can I take Uber/Lyft/taxi/bus home? A: An adult MUST be present with you at check-in for your colonoscopy and remain in the endoscopy area until you are discharged. You can take Uber home only if this adult escort is with you at check in, remain in the endoscopy area until you are discharged, and takes the Uber with you to home. Q: Can I sleep it off here and drive myself home? A: No, you must have an adult with you at time of procedure check in, remain in the endoscopy center during your procedure, and drive you home. You cannot drive a vehicle after your procedure the rest of the day. documented in this encounter [facility] 03-03-2024 Note HNO ID: [id number] Author: ANDREAS LIND APRN.GEOVANNY Service: ? Author Type: Nurse Practitioner Type: Progress Notes Filed: 03/03/2024 09:50 Note Text: CHIEF COMPLAINT: Patient presents with: Anemia HPI: Kari Allan is a 53 year old male with hx of DVT on eliquis, PTSD, seizure disorder, anxiety/depression, hx of dysphagia and esophageal stricture, and hx anoxic brain injury here today for Anemia. Hgb/Hct in 08/21/23 was 12.2/35.6. Repeat blood work 02/11/24 showed hgb/hct of 15.7/45.7. 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 He is not very reliable historian. VICKY noted. When asked about (+) findings, he denies any dysphagia, n/v, abdominal pain, diarrhea, constipation, rectal bleeding. He then states he has seen some bright red blood in the stool and it happens a couple times a day - this is intermittent. Usually happens after eating something hot or spicy. (+) fatigue Last colonoscopy was 2014. Current Outpatient Medications Medication Sig BENZONATATE ORAL Take by mouth. escitalopram oxalate (LEXAPRO) 10 mg tablet Take 10 mg by mouth once daily. ferrous sulfate 325 mg (65 mg iron) EC tablet Take 325 mg by mouth. finasteride (PROSCAR) 5 mg tablet Take 5 mg by mouth once daily. tamsulosin (FLOMAX) 0.4 mg Take 0.4 mg by mouth once daily. gabapentin (NEURONTIN) 100 mg capsule Take 100 mg by mouth three times a day. promethazine (PHENERGAN) 25 mg tablet Take 25 mg by mouth every 6 hours as needed. promethazine (PROMETHEGAN) 25 mg suppository 25 mg by RECTAL route every 6 hours as needed. QUEtiapine (SEROQUEL) 50 mg tablet Take 50 mg by mouth daily at bedtime. acetaminophen 325 mg cap Take by mouth. ALBUTEROL, BULK, MISC menthol (BIOFREEZE, MENTHOL,) 4 % topical gel Apply to affected area three times daily as needed. Bisacodyl (DULCOLAX) 5 mg tab Take 5 mg by mouth as needed for constipation. bisacodyl (DULCOLAX, BISACODYL,) 10 mg supp 10 mg by RECTAL route once daily as needed for constipation. apixaban (ELIQUIS) 5 mg tab(s) Take by mouth twice daily. guaifenesin/dextromethorphan (GUAIFENESIN DM ORAL) Take by mouth. ipratropium-albuterol (DUONEB) 0.5 mg-3 mg(2.5 mg base)/3 mL nebu Inhale 3 mL as instructed. magnesium hydroxide (MILK OF MAGNESIA ORAL) Take by mouth. pantoprazole DR (PROTONIX) 40 mg tablet Take 1 tablet by mouth twice daily. On empty stomach at least 30 minutes before eating. baclofen (LIORESAL) 10 mg tablet Take 1 tablet by mouth three times daily as needed (muscle spasms). folic acid 1 mg tablet Take 1 tablet by mouth once daily. levETIRAcetam (KEPPRA) 750 mg tablet Take 1 tablet by mouth twice daily. pyridoxine, vitamin B6, (VITAMIN B6) 25 mg tablet Take 1 tablet by mouth once daily. QUEtiapine (SEROQUEL) 200 mg tablet Take 1 tablet by mouth daily at bedtime. thiamine (VITAMIN B1) 100 mg tablet Take 1 tablet by mouth once daily. melatonin 3 mg tablet Take 1 tablet by mouth daily at bedtime. polyethylene glycol 3350 (MIRALAX, GLYCOLAX) 17 gram packet Take 1 Packet by mouth once daily. divalproex sprinkle (DEPAKOTE SPRINKLES) 125 mg capsule Take 4 capsules by mouth three times daily. naltrexone (TREXAN) 50 mg tablet Take 1 tablet by mouth once daily. cholecalciferol (VITAMIN D-3) 5,000 unit tab Take 1 tablet by mouth once daily. No current facility-administered medications for this visit. ALLERGIES Allergen Reactions Haldol [Haloperidol* Unknown Copied from mar from halfway Paragoric Swelling Social History Tobacco Use Smoking status: Every Day Current packs/day: 1.00 Average packs/day: 1 pack/day for 30.0 years (30.0 ttl pk-yrs) Types: Cigarettes Smokeless tobacco: Never Vaping Use Vaping status: Never Used Substance Use Topics Alcohol use: Not Currently Comment: past hx of etoh abuse Drug use: No PAST MEDICAL HISTORY Diagnosis Date Acute respiratory failure (HCC) Alcohol abuse Alcohol withdrawal with delirium in inpatient treatment ([facility]) 03/15/2016 Anemia Back pain C. difficile colitis COPD (chronic obstructive pulmonary disease) (HCC) Drug overdose DVT (deep venous thrombosis) (HCC) Dysphasia Encephalopathy ETOH abuse 02/09/2016 GERD (gastroesophageal reflux disease) GI bleed 09/24/2019 Opiate dependence, continuous (HCC) Pancreatitis Pulmonary nodule seen on imaging study Renal cyst Seizure (HCC) Sepsis (HCC) Tobacco abuse Weakness PAST SURGICAL HISTORY Procedure Laterality Date APPENDECTOMY HX BACK SURGERY HX CHOLECYSTECTOMY HX COLONOSCOPY 2014 EGD 02/16/2017 EGD 04/13/2019 EGD 12/13/2018 EGD 11/15/2018 EGD 11/11/2018 EGD 10/11/2018 EGD 03/01/2018 EGD 02/08/2018 EGD 01/18/2018 EGD DILATION 07/12/2018 EGD DILATION 04/26/2018 EGD DILATION 03/22/2018 EGD W/O [facility] SPEC VARICIES INJ 09/25/2019 EGD W/O [facility] SPEC VARICIES INJ 08/20/2023 GASTROSTOMY/JEJUNOSTOMY TUBE 02/2017 PICC LINE INSERT/CONSULT 04/04/2017 FAMILY HISTORY Problem R (more content not included)... [facility] 03-03-2024 History of Present illness Narrative CHIEF COMPLAINT: Patient presents with: Anemia HPI: Kari Allan is a 53 year old male with hx of DVT on eliquis, PTSD, seizure disorder, anxiety/depression, hx of dysphagia and esophageal stricture, and hx anoxic brain injury here today for Anemia. Hgb/Hct in 08/21/23 was 12.2/35.6. Repeat blood work 02/11/24 showed hgb/hct of 15.7/45.7. 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 He is not very reliable historian. ROS noted. When asked about (+) findings, he denies any dysphagia, n/v, abdominal pain, diarrhea, constipation, rectal bleeding. He then states he has seen some bright red blood in the stool and it happens a couple times a day - this is intermittent. Usually happens after eating something hot or spicy. (+) fatigue Last colonoscopy was 2014. Current Outpatient Medications Medication Sig BENZONATATE ORAL Take by mouth. escitalopram oxalate (LEXAPRO) 10 mg tablet Take 10 mg by mouth once daily. ferrous sulfate 325 mg (65 mg iron) EC tablet Take 325 mg by mouth. finasteride (PROSCAR) 5 mg tablet Take 5 mg by mouth once daily. tamsulosin (FLOMAX) 0.4 mg Take 0.4 mg by mouth once daily. gabapentin (NEURONTIN) 100 mg capsule Take 100 mg by mouth three times a day. promethazine (PHENERGAN) 25 mg tablet Take 25 mg by mouth every 6 hours as needed. promethazine (PROMETHEGAN) 25 mg suppository 25 mg by RECTAL route every 6 hours as needed. QUEtiapine (SEROQUEL) 50 mg tablet Take 50 mg by mouth daily at bedtime. acetaminophen 325 mg cap Take by mouth. ALBUTEROL, BULK, MISC menthol (BIOFREEZE, MENTHOL,) 4 % topical gel Apply to affected area three times daily as needed. Bisacodyl (DULCOLAX) 5 mg tab Take 5 mg by mouth as needed for constipation. bisacodyl (DULCOLAX, BISACODYL,) 10 mg supp 10 mg by RECTAL route once daily as needed for constipation. apixaban (ELIQUIS) 5 mg tab(s) Take by mouth twice daily. guaifenesin/dextromethorphan (GUAIFENESIN DM ORAL) Take by mouth. ipratropium-albuterol (DUONEB) 0.5 mg-3 mg(2.5 mg base)/3 mL nebu Inhale 3 mL as instructed. magnesium hydroxide (MILK OF MAGNESIA ORAL) Take by mouth. pantoprazole DR (PROTONIX) 40 mg tablet Take 1 tablet by mouth twice daily. On empty stomach at least 30 minutes before eating. baclofen (LIORESAL) 10 mg tablet Take 1 tablet by mouth three times daily as needed (muscle spasms). folic acid 1 mg tablet Take 1 tablet by mouth once daily. levETIRAcetam (KEPPRA) 750 mg tablet Take 1 tablet by mouth twice daily. pyridoxine, vitamin B6, (VITAMIN B6) 25 mg tablet Take 1 tablet by mouth once daily. QUEtiapine (SEROQUEL) 200 mg tablet Take 1 tablet by mouth daily at bedtime. thiamine (VITAMIN B1) 100 mg tablet Take 1 tablet by mouth once daily. melatonin 3 mg tablet Take 1 tablet by mouth daily at bedtime. polyethylene glycol 3350 (MIRALAX, GLYCOLAX) 17 gram packet Take 1 Packet by mouth once daily. divalproex sprinkle (DEPAKOTE SPRINKLES) 125 mg capsule Take 4 capsules by mouth three times daily. naltrexone (TREXAN) 50 mg tablet Take 1 tablet by mouth once daily. cholecalciferol (VITAMIN D-3) 5,000 unit tab Take 1 tablet by mouth once daily. No current facility-administered medications for this visit. ALLERGIES Allergen Reactions Haldol [Haloperidol* Unknown Copied from mar from halfway Paragoric Swelling Social History Tobacco Use Smoking status: Every Day Current packs/day: 1.00 Average packs/day: 1 pack/day for 30.0 years (30.0 ttl pk-yrs) Types: Cigarettes Smokeless tobacco: Never Vaping Use Vaping status: Never Used Substance Use Topics Alcohol use: Not Currently Comment: past hx of etoh abuse Drug use: No PAST MEDICAL HISTORY Diagnosis Date Acute respiratory failure (HCC) Alcohol abuse Alcohol withdrawal with delirium in inpatient treatment (HCC) 03/15/2016 Anemia Back pain C. difficile colitis COPD (chronic obstructive pulmonary disease) (HCC) Drug overdose DVT (deep venous thrombosis) (HCC) Dysphasia Encephalopathy ETOH abuse 02/09/2016 GERD (gastroesophageal reflux disease) GI bleed 09/24/2019 Opiate dependence, continuous (HCC) Pancreatitis Pulmonary nodule seen on imaging study Renal cyst Seizure (HCC) Sepsis (HCC) Tobacco abuse Weakness PAST SURGICAL HISTORY Procedure Laterality Date APPENDECTOMY HX BACK SURGERY HX CHOLECYSTECTOMY HX COLONOSCOPY 2014 EGD 02/16/2017 EGD 04/13/2019 EGD 12/13/2018 EGD 11/15/2018 EGD 11/11/2018 EGD 10/11/2018 EGD 03/01/2018 EGD 02/08/2018 EGD 01/18/2018 EGD DILATION 07/12/2018 EGD DILATION 04/26/2018 EGD DILATION 03/22/2018 EGD W/O [facility] SPEC VARICIES INJ 09/25/2019 EGD W/O [facility] SPEC VARICIES INJ 08/20/2023 GASTROSTOMY/JEJUNOSTOMY TUBE 02/2017 PICC LINE INSERT/CONSULT 04/04/2017 FAMILY HISTORY Problem Relation Age of Onset Diabetes Mother Blood Disease Father Alcohol/Drug Brother other (Pancreatitis) Brother REVIEW OF SYSTEMS Review of Systems HENT: Positive for trouble swallowing. Respiratory: Positive for chest tightness and shortness of breath. Cardiovascular: Positive for palpitations. Gastrointestinal: Positive for abdominal pain, nausea and vomiting. All other systems reviewed and are negative. PHYSICAL EXAM Pulse 100 Ht 5' 10 (1.78m) Physical Exam Constitutional: Appearance: Normal appearance. Comments: In wheelchair HENT: Head: Normocephalic and atraumatic. Cardiovascular: Rate and Rhythm: Normal rate and regular rhythm. Heart sounds: Normal heart sounds. Pulmonary: Breath sounds: Normal breath sounds. Abdominal: General: Abdomen is protuberant. Bowel sounds are normal. There is no distension. Palpations: Abdomen is soft. Tenderness: There is abdominal tenderness in the epigastric area. There is no guarding or rebound. Skin: General: Skin is warm and dry. Neurological: Mental Status: He is alert and oriented to person, place, and time. Psychiatric: Mood and Affect: Mood normal. Behavior: Behavior normal. ASSESSMENT: (D64.9) Anemia, unspecified type (primary encounter diagnosis) (R10.13) Epigastric pain 1. Anemia, unspecified type - plan for EGD/colonoscopy at [facility] prep - peg 3350-Electrolytes (GOLYTELY) 236-22.74-6.74 -5.86 gram suspension; Take 4,000 mL by mouth one time only for 1 dose. Refer to printed prep instructions from your provider. Dispense: 4000 mL; Refill: 0 - COLONOSCOPY DIAGNOSTIC; Future - EGD DIAGNOSTIC; Future 2. Epigastric pain - EGD DIAGNOSTIC; Future - continue with pantoprazole 40mg daily Follow up in office prn Andreas Lind APRN.CNP March 03, 2024 9:49 AM documented in this encounter [facility] 02-11-2024 Note SARS-COV-2 (AGENT OF COVID-19) RNA: Not detected INFLUENZA A RNA: Not detected INFLUENZA B RNA: Not detected RESPIRATORY SYNCYTIAL VIRUS (RSV) RNA: Not detected [facility] Comment on above: Performed By: #### [id number] #### [facility] CLIA [id number] [address] [place] [address] [place] OF [place] 10-27-2023 History of Present illness Narrative Images from the original note were not included. Yun Rubio MD 10/27/2023 at 11:53 AM Office follow up PATIENT NAME: Kari Allan DATE OF : 1970 TODAY'S DATE: 10/27/2023 CHIEF COMPLAINT: Chief Complaint Patient presents with Renal Mass Subjective: Mr. Allan is a 53 y.o. male who presents to the office for follow up of renal cyst Denies pain He was having urinary issues, trouble voiding while in hospital. He is at halfway now Review of Systems Constitutional: Negative for activity change, chills, fatigue and fever. Gastrointestinal: Negative for abdominal distention and abdominal pain. Genitourinary: Positive for difficulty urinating. Negative for hematuria. Past Medical History: Past Medical History: Diagnosis Date Alcohol abuse with intoxication (HCC) Anemia Anoxic brain damage (CMS/HCC) (HCC) Anxiety Asthma Convulsion (HCC) COPD (chronic obstructive pulmonary disease) (HCC) Depression DVT (deep venous thrombosis) (HCC) Dysphagia Encephalopathy GERD (gastroesophageal reflux disease) Hepatitis Hypertension Impulse control disorder Insomnia, unspecified Need for assistance with personal care Opioid abuse (HCC) Other symbolic dysfunctions Pancreatitis Psychosis (HCC) PTSD (post-traumatic stress disorder) Solitary lung nodule Past Surgical History: Past Surgical History: Procedure Laterality Date APPENDECTOMY BACK SURGERY 5 vertabrae fused CHOLECYSTECTOMY COLONOSCOPY 2014 CT CHEST ANGIOGRAM W AND/OR WO IV CONTRAST 04/08/2022 CT CHEST ANGIOGRAM W AND/OR WO IV CONTRAST 04/08/[address]22 [facility] CT IMAGING CYST REMOVAL wrist GASTROSTOMY TUBE PLACEMENT 03/01/2017 UPPER GASTROINTESTINAL ENDOSCOPY 02/16/2017 Allergies: Haloperidol and Paregoric Social History: Social History Socioeconomic History Marital status: Single Spouse name: Not on file Number of children: Not on file Years of education: Not on file Highest education level: Not on file Occupational History Not on file Tobacco Use Smoking status: Some Days Packs/day: 2.00 Years: 40.00 Additional pack years: 0.00 Total pack years: 80.00 Types: Cigarettes Smokeless tobacco: Never Vaping Use Vaping Use: Never used Substance and Sexual Activity Alcohol use: Yes Drug use: Not Currently Sexual activity: Not Currently Other Topics Concern Not on file Social History Narrative Not on file Social Determinants of Health Financial Resource Strain: Patient Declined (08/19/2023) Overall Financial Resource Strain (CARDIA) Difficulty of Paying Living Expenses: Patient declined Food Insecurity: No Food Insecurity (08/19/2023) Hunger Vital Sign Worried About Running Out of Food in the Last Year: Never true Ran Out of Food in the Last Year: Never true Transportation Needs: No Transportation Needs (08/19/2023) PRAPARE - Transportation Lack of Transportation (Medical): No Lack of Transportation (Non-Medical): No Physical Activity: Unknown (08/19/2023) Exercise Vital Sign Days of Exercise per Week: 0 days Minutes of Exercise per Session: Not on file Stress: No Stress Concern Present (08/19/2023) [employer] - Occupational Stress Questionnaire Feeling of Stress : Not at all Social Connections: Socially Isolated (08/19/2023) Social Connection and Isolation Panel [NHANES] Frequency of Communication with Friends and Family: Never Frequency of Social Gatherings with Friends and Family: Never Attends Protestant Services: Never Active Member of Clubs or Organizations: No Attends Club or Organization Meetings: Never Marital Status: Intimate Partner Violence: Not At Risk (08/19/2023) Humiliation, Afraid, Rape, and Kick questionnaire Fear of Current or Ex-Partner: No Emotionally Abused: No Physically Abused: No Sexually Abused: No Housing Stability: Low Risk (08/19/2023) Housing Stability Vital Sign Unable to Pay for Housing in the Last Year: No Number of Places Lived in the Last Year: 2 Unstable Housing in the Last Year: No Family History: Medications Prior to Admission medications Medication Sig Start Date End Date Taking? Authorizing Provider acetaminophen (Tylenol) 325 MG tablet Take 2 tablets by mouth every 6 hours as needed for fever, mild pain (1-3) or moderate pain (4-6). Historical Provider, Albuterol Sulfate 108 (90 Base) MCG/ACT aerosol powder Inhale 1 puff every 2 hours as needed. Historical Provider, apixaban (Eliquis) 5 MG tablet Take 5 mg by mouth in the morning and 5 mg before bedtime. Historical Provider, baclofen (Lioresal) 10 MG tablet Take 10 mg by mouth 3 times daily. Historical Provider, bisacodyl (Dulcolax) 10 MG suppository Insert 10 mg into the rectum Daily as needed for constipation. Historical Provider, bisacodyl (Dulcolax) 5 MG EC tablet Take 5 mg by mouth Daily as needed. Historical Provider, divalproex sprinkle (Depakote Sprinkle) [address] capsule Take 500 mg by mouth 3 times daily. Historical Provider, escitalopram (Lexapro) 10 MG tablet Take 1.5 tablets by mouth daily. Historical Provider, folic acid (Folvite) 1 MG tablet daily. 11/01/15 Historical Provider, guaiFENesin (Humibid 3) 400 MG tablet Take 400 mg by mouth every 8 hours as needed for congestion. Historical Provider, ipratropium-albuterol (Duo-Neb) 0.5-2.5 mg/3 mL nebulizer solution Inhale 3 mL every 6 hours as needed. Historical Provider, levETIRAcetam (Keppra) 750 MG tablet Take 1 tablet by mouth in the morning and 1 tablet before bedtime. 03/03/17 Historical Provider, magnesium hydroxide (Milk of Magnesia) 400 MG/5ML suspension Take 30 mL by mouth Daily as needed. Historical Provider, melatonin 3 MG tablet 3 mg Nightly as needed. 11/18/18 Historical Provider, Menthol, Topical Analgesic, (Biofreeze Roll-On) 4 % gel Apply topically every 8 hours as needed. Historical Provider, naltrexone (Depade) 50 MG tablet Take 50 mg by mouth in the morning. Historical Provider, Nirmatrelvir&Ritonavir 300/100 (Paxlovid, 300/100,) 20 x 150 MG & 10 x 100MG tablet therapy pack Take 3 tablets by mouth in the morning and 3 tablets in the evening. 05/21/23 Ashlie Alcantara, pantoprazole (ProtoNix) 40 MG EC tablet 40 mg 2 times daily. 03/21/23 Historical Provider, polyethylene glycol, PEG, 3350 (Glycolax) 17 GM/SCOOP powder Take 17 g by mouth daily. 11/18/18 Historical Provider, pyridoxine (Vitamin B-6) 25 MG tablet 25 mg daily. 11/18/18 Historical Provider, QUEtiapine (SEROquel) 200 MG tablet 200 mg 2 times daily. 11/18/18 Historical Provider, thiamine (Vitamin B-1) 100 MG tablet 100 mg daily. 03/03/17 Historical Provider, Throat Lozenges (Cough Drops Menthol) lozenge Dissolve 1 lozenge in the mouth Once as needed. Historical Provider, traMADol (Ultram) 50 MG tablet 06/01/23 Historical Provider, Vitals: There were no vitals taken for this visit. Physical Exam General: alert, appears stated age, and cooperative Abdomen: soft and protuberant Back: straight, CVA tenderness absent : In wheelchair Labs: WBC Lab Results Component Value Date WBC 5.7 08/21/2023 BMP Lab Results Component Value Date NA 136 08/21/2023 K 3.5 08/21/2023 CL 106 08/21/2023 CO2 24 08/21/2023 BUN 9 08/21/2023 CREATININE 1.05 08/21/2023 CREATININE 0.98 11/14/2021 GLUCOSE 127 (H) 08/21/2023 CALCIUM 8.6 08/21/2023 PSA No results found for: PSA UA Lab Results Component Value Date COLORU Light Yellow 08/16/2023 GLUCOSEU Normal 08/16/2023 UROBILINOGEN Normal 08/16/2023 Review: CT imaging reviewed, calcified left renal cyst Prostate Ultrasound With Needle Biopsy Prostate Patient was instructed to stop all aspirin products 10 days prior to the procedure. I explained the options concerning the findings of a prostatic nodule both with and without an elevated PSA, as well as an elevated PSA without a prostate nodule. I specifically explained to him the procedure, the reason for doing this, the possible complications, and the fact that a negative prostate biopsy does not definitely indicate that there is no prostate cancer present, but only that there was no malignancy found in the biopsy specimens. I explained the possibility of impotency and some incontinence, blood in the urine, stool, and/or semen. He may also experience frequency, urgency, and dysuria after the procedure. I explained the remote possibility of blood loss and the possibility of infection of the prostate and rectum post operatively. I explained that the procedure would be done through the rectum and that there was a small chance of a rectal fistula leading to a colostomy and possible further surgery. The patient expressed an understanding with regard to possible benefits, risks, complications an Impression/Plan Diagnoses and all orders for this visit: Renal lesion Elevated PSA - PSA, total and free; Future BPH with urinary obstruction Stable, benign appearing calcified renal csyt This is stable from CT in April and July Will plan on annual renal US to follow this His brother does report his PSA was found to be over 600 at halfway, no recordds available to review Repeat PSA, as he may have UTI at that time. He was prescribed a z pack Follow up for prostate biopsy, will need to hold eliquis prior to this for 2 days No follow-ups on file. Yun Rubio MD 10/27/23 11:53 AM documented in this encounter [facility] 10-09-2023 Telephone encounter Note We have been unable to reach your patient to schedule their testing. Test Name: US retroperitoneum 1st attempt//vm full//no mychart//5.24 KGK 2nd attempt//vm full//no way to contact//TE to office// 10.09.23 KGK [facility] 10-09-2023 Miscellaneous Notes We have been unable to reach your patient to schedule their testing. Test Name: US retroperitoneum 1st attempt//vm full//no mychart//5.24 KGK 2nd attempt//vm full//no way to contact//TE to office// 10.09.23 KGK documented in this encounter [facility] 09-24-2023 Telephone encounter Note Letter mailed. [facility] 09-24-2023 Miscellaneous Notes Letter mailed. Key, We wanted to inform you that your patient has missed their appointment more than once for a Nuclear Regadenoson stress test ordered by Dr.Saurav Parker Please advise and thank you documented in this encounter [facility] 09-23-2023 Telephone encounter Note Key, We have been unable to reach your patient to schedule their testing. Test Name: Sleep study 1st Attempt: 06/18/23 LVM 2nd Attempt: 09/23/23 LVM Thank you [facility] 09-23-2023 Miscellaneous Notes Key, We have been unable to reach your patient to schedule their testing. Test Name: Sleep study 1st Attempt: 06/18/23 LVM 2nd Attempt: 09/23/23 LVM Thank you documented in this encounter [facility] 2023 Telephone encounter Note Key, We wanted to inform you that your patient has missed their appointment more than once for a Nuclear Regadenoson stress test ordered by Dr.Saurav Parker Please advise and thank you [facility] 08-21-2023 Note Discharge Summary Kari Allan : 1970 ADMIT DATE: 08/19/2023 DISCHARGE DATE: 08/21/2023 PRIMARY CARE PHYSICIAN: Antonella Marrero VISIT STATUS: Admission CODE STATUS: DNR-CCA DISCHARGE DIAGNOSES: Principal Problem: Upper GI bleeding HOSPITAL COURSE: Kari is a 52 y.o. male who presents to the emergency department with a chief complaint of abdominal pain and right leg pain with reported coffee-ground emesis and dark stools. Patient brought in by EMS. Patient currently lives at [facility]. History of alcohol abuse with anoxic brain injury. Patient is on Eliquis for an history of embolism. Denies any chest pain or shortness of breath. Denies lower back pain. Denies fever or chills. Patient was evaluated at [facility] emergency department for right hip pain and abdominal pain 3 days ago. Patient had a right hip x-ray with no acute fracture or dislocation with degenerative changes. CT abdomen reportedly was negative for acute abdominal pelvic process. Patient has hepatic steatosis. Reported fluid in the distal esophagus. Patient was evaluated at [facility] 2 days ago for abdominal pain and dark emesis. Patient had a CT abdomen and pelvis performed at that time that was negative for acute intra-abdominal or pelvic process. Patient reportedly has a fatty liver and a small hiatal hernia. Patient is on pantoprazole. Spoke with sister Karo over the phone. She states they saw black stool on his wheelchair and this is new. They though is was back rubber something. Also she states she is court appointed legal guardian and is primary decision maker. She states he is DNR CCA, no intubation but okay for ICU (states she was told that if he were to go into cardiac arrest again with his history of brain anoxia, he would be a vegetable. The following is a summary of his diagnosis/management during his stay here at [facility]: # Coffee ground emesis (recently at [facility] 2 days ago for same and [facility] - s/p EGD on 08/19 showing gastritis. Eliquis was on hold here. H/H has been stable and uptrending. will resume on discharge. Will discharge on protonix bid. # Abdominal pain likely due to gastritis - resolved now on protonix bid. # Hypokalemia - replace as needed # History of alcohol abuse with anoxic brain injury. # Patient is on Eliquis for an history of DVT # COPD/Asthma without exacerbation # Chronic HTN # Hx of anxiety/depression/psychosis/PTSD # Hx of solitary lung nodule # Hx of opioid abuse # Obesity # Hx of GERD # Code status: Karo his sister states she is court appointed legal guardian and is primary decision maker. She states he is DNR CCA, no intubation but okay for ICU (states she was told before that if he were to go into cardiac arrest again with his history of brain anoxia, he would be a vegetable. Physical exam: Cardiovascular: S1/S2 heard, RRR Respiratory: Clear to auscultation bilaterally Abdomen: Soft, non-tender, non-distended bowel sounds positive Musculoskeletal: No obvious deformities seen Skin: No visible rashes or lesions. Addendum: Patient with coffee ground emesis underwent EGD reported finding of gastritis. Eliquis held during admit, treated with IV PPI. Discharged on Protonix and Eliquis resumed. This can be further clarified as Gastritis with bleed likely worsened by Eliquis SIGNIFICANT DIAGNOSTIC STUDIES: As above CONSULTANTS: GI RECOMMENDED NEXT STEPS: DISCHARGE MEDICATIONS: Medication List CONTINUE taking these medications acetaminophen 325 MG tablet Commonly known as: Tylenol Albuterol Sulfate 108 (90 Base) MCG/ACT aerosol powder baclofen 10 MG tablet Commonly known as: Lioresal Biofreeze Roll-On 4 % gel Generic drug: Menthol (Topical Analgesic) * bisacodyl 5 MG EC tablet Commonly known as: Dulcolax * Dulcolax 10 MG suppository Generic drug: bisacodyl Cough Drops Menthol lozenge divalproex sprinkle [address] capsule Commonly known as: Depakote Sprinkle Eliquis 5 MG tablet Generic drug: apixaban escitalopram 10 MG tablet Commonly known as: Lexapro folic acid 1 MG tablet Commonly known as: Folvite guaiFENesin 400 MG tablet Commonly known as: Humibid 3 ipratropium-albuterol 0.5-2.5 mg/3 mL nebulizer solution Commonly known as: Duo-Neb levETIRAcetam 750 MG tablet Commonly known as: Keppra magnesium hydroxide 400 MG/5ML suspension Commonly known as: Milk of Magnesia melatonin 3 MG tablet naltrexone 50 MG tablet Commonly known as: Depade pantoprazole 40 MG EC tablet Commonly known as: ProtoNix Paxlovid (300/100) 20 x 150 MG & 10 x 100MG tablet therapy pack Generic drug: Nirmatrelvir&Ritonavir 300/100 Take 3 tablets by mouth in the morning and 3 tablets in the evening. polyethylene glycol (PEG) 3350 17 GM/SCOOP powder Commonly known as: Glycolax promethazine 25 MG tablet Commonly known as: Phenergan Take 1 tablet ( (more content not included)... [facility] 08-21-2023 Hospital course Narrative Images from the original note were not included. Discharge Summary Kari Allan : 1970 ADMIT DATE: 08/19/2023 DISCHARGE DATE: 08/21/2023 PRIMARY CARE PHYSICIAN: Antonella Marrero VISIT STATUS: Admission CODE STATUS: DNR-CCA DISCHARGE DIAGNOSES: Principal Problem: Upper GI bleeding HOSPITAL COURSE: Kari is a 52 y.o. male who presents to the emergency department with a chief complaint of abdominal pain and right leg pain with reported coffee-ground emesis and dark stools. Patient brought in by EMS. Patient currently lives at [facility]. History of alcohol abuse with anoxic brain injury. Patient is on Eliquis for an history of embolism. Denies any chest pain or shortness of breath. Denies lower back pain. Denies fever or chills. Patient was evaluated at [facility] emergency department for right hip pain and abdominal pain 3 days ago. Patient had a right hip x-ray with no acute fracture or dislocation with degenerative changes. CT abdomen reportedly was negative for acute abdominal pelvic process. Patient has hepatic steatosis. Reported fluid in the distal esophagus. Patient was evaluated at [facility] 2 days ago for abdominal pain and dark emesis. Patient had a CT abdomen and pelvis performed at that time that was negative for acute intra-abdominal or pelvic process. Patient reportedly has a fatty liver and a small hiatal hernia. Patient is on pantoprazole. Spoke with sister Karo over the phone. She states they saw black stool on his wheelchair and this is new. They though is was back rubber something. Also she states she is court appointed legal guardian and is primary decision maker. She states he is DNR CCA, no intubation but okay for ICU (states she was told that if he were to go into cardiac arrest again with his history of brain anoxia, he would be a vegetable. The following is a summary of his diagnosis/management during his stay here at [facility]: # Coffee ground emesis (recently at [facility] 2 days ago for same and [facility]) - s/p EGD on 08/19 showing gastritis. Eliquis was on hold here. H/H has been stable and uptrending. will resume on discharge. Will discharge on protonix bid. # Abdominal pain likely due to gastritis - resolved now on protonix bid. # Hypokalemia - replace as needed # History of alcohol abuse with anoxic brain injury. # Patient is on Eliquis for an history of DVT # COPD/Asthma without exacerbation # Chronic HTN # Hx of anxiety/depression/psychosis/PTSD # Hx of solitary lung nodule # Hx of opioid abuse # Hx of GERD # Code status: Karo his sister states she is court appointed legal guardian and is primary decision maker. She states he is DNR CCA, no intubation but okay for ICU (states she was told before that if he were to go into cardiac arrest again with his history of brain anoxia, he would be a vegetable. Physical exam: Cardiovascular: S1/S2 heard, RRR Respiratory: Clear to auscultation bilaterally Abdomen: Soft, non-tender, non-distended bowel sounds positive Musculoskeletal: No obvious deformities seen Skin: No visible rashes or lesions. SIGNIFICANT DIAGNOSTIC STUDIES: As above CONSULTANTS: GI RECOMMENDED NEXT STEPS: DISCHARGE MEDICATIONS: Medication List CONTINUE taking these medications acetaminophen 325 MG tablet Commonly known as: Tylenol Albuterol Sulfate 108 (90 Base) MCG/ACT aerosol powder baclofen 10 MG tablet Commonly known as: Lioresal Biofreeze Roll-On 4 % gel Generic drug: Menthol (Topical Analgesic) * bisacodyl 5 MG EC tablet Commonly known as: Dulcolax * Dulcolax 10 MG suppository Generic drug: bisacodyl Cough Drops Menthol lozenge divalproex sprinkle [address] capsule Commonly known as: Depakote Sprinkle Eliquis 5 MG tablet Generic drug: apixaban escitalopram 10 MG tablet Commonly known as: Lexapro folic acid 1 MG tablet Commonly known as: Folvite guaiFENesin 400 MG tablet Commonly known as: Humibid 3 ipratropium-albuterol 0.5-2.5 mg/3 mL nebulizer solution Commonly known as: Duo-Neb levETIRAcetam 750 MG tablet Commonly known as: Keppra magnesium hydroxide 400 MG/5ML suspension Commonly known as: Milk of Magnesia melatonin 3 MG tablet naltrexone 50 MG tablet Commonly known as: Depade pantoprazole 40 MG EC tablet Commonly known as: ProtoNix Paxlovid (300/100) 20 x 150 MG & 10 x 100MG tablet therapy pack Generic drug: Nirmatrelvir&Ritonavir 300/100 Take 3 tablets by mouth in the morning and 3 tablets in the evening. polyethylene glycol (PEG) 3350 17 GM/SCOOP powder Commonly known as: Glycolax promethazine 25 MG tablet Commonly known as: Phenergan Take 1 tablet (25 mg) by mouth every 6 hours as needed for nausea or vomiting for up to 7 days. pyridoxine 25 MG tablet Commonly known as: Vitamin B-6 QUEtiapine 200 MG tablet Commonly known as: SEROquel thiamine 100 MG tablet Commonly known as: Vitamin B-1 traMADol 50 MG tablet Commonly known as: Ultram * This list has 2 medication(s) that are the same as other medications prescribed for you. Read the directions carefully, and ask your doctor or other care provider to review them with you. DIET: Adult diet Regular ACTIVITY: Up with assist COMPLEXITY OF FOLLOW UP: [] Moderate Complexity: follow up within 7-14 calendar days (66985) [] Severe Complexity: follow up within 7 calendar days (00545) FOLLOW UP TESTING, PENDING RESULTS OR REFERRALS AT TRANSITIONAL CARE VISIT: [] Yes [] No PENDING STUDIES: DISPOSITION: Skilled Facility FACILITY/HOME CARE AGENCY NAME: [facility] Follow up with No follow-up provider specified. Follow up with PCP INSTRUCTIONS TO MA/SW: Please call patient on day after discharge (must document patient contacted within 2 business days of discharge). FOLLOW UP QUESTIONS FOR MA/SW: 1. Did you get medications filled and taking them as instructed from discharge? 2. Are you following your discharge instructions from your hospital stay? 3. Please confirm patient is scheduled for a follow up appointment within the above time frame. DISCHARGE TIME: > 31 minutes SIGNED: CHANTELLE DEAN MD 08/21/2023, 10:07 AM documented in this encounter [facility] 08-21-2023 Hospital Discharge instructions Azul Andrade RN - 08/21/2023 10:03 AM EDT Continuity of Care Form Patient Name: Kari Allan : 1970 Admit date: 08/19/2023 Discharge date: Code Status Order: DNR-CCA Advance Directives: N Admitting Physician: Latoya Gonzalez MD PCP: Antonella Marrero Discharging Nurse: Discharging Hospital Unit/Room#: B2-250/B2-250 B Discharging Unit Phone Number: Emergency Contact: Extended Emergency Contact Information Primary Emergency Contact: Karo Sanford Mobile Relation: Sister Preferred language: Lebanese Traffic Rate Clerk needed? No Past Surgical History: Past Surgical History: Procedure Laterality Date APPENDECTOMY BACK SURGERY 5 vertabrae fused CHOLECYSTECTOMY COLONOSCOPY 2014 CT CHEST ANGIOGRAM W AND/OR WO IV CONTRAST 04/08/2022 CT CHEST ANGIOGRAM W AND/OR WO IV CONTRAST 04/08/[address]22 [facility] [address] IMAGING CYST REMOVAL wrist GASTROSTOMY TUBE PLACEMENT 03/01/2017 UPPER GASTROINTESTINAL ENDOSCOPY 02/16/2017 Immunization History: Immunization History Administered Date(s) Administered Influenza Whole 02/26/2015 Pfizer SARS-CoV-2 Vaccination 05/20/2020, 06/10/2020, 03/12/2021 Pneumococcal Polysaccharide PPSV23 02/17/2013 Active Problems: Medical Problems Problem List * (Principal) Upper GI bleeding GERD (gastroesophageal reflux disease) Alcohol-induced acute pancreatitis without infection or necrosis Hypertension Obstructive chronic bronchitis without exacerbation Chronic bronchitis (HCC) MARICRUZ (obstructive sleep apnea) Class 1 obesity due to excess calories with serious comorbidity and body mass index (BMI) of 31.0 to 31.9 in adult Preoperative respiratory examination Esophageal stricture COVID Pain of lower extremity Hip pain Deep vein thrombosis (HCC) Back pain Overview Signed 03/15/2022 7:27 AM by Interface, Incoming Problems- [facility] Conversion Sees pain management dr penny Taylor neurosurgeon dr clark PATIENT GOT DISCHARGED [facility] ON AUGUST [address] FRAIRE Renal cyst C. difficile diarrhea Acute respiratory failure with hypoxia (HCC) Blood poisoning Acute alcoholic gastritis Sepsis (HCC) Seizure (HCC) Febrile illness Tobacco abuse Acute respiratory failure (HCC) Encephalopathy Alcohol abuse Drug overdose Chronic pancreatitis (CMS/HCC) (HCC) Encephalopathy acute Isolation/Infection: No active isolations No active infections Nurse Assessment: Last Vital Signs: BP 112/79 Pulse 81 Temp 36.7 C (98 F) (Temporal) Resp 18 Ht 1.727 m (5' 8) Wt 90.8 kg (200 lb 3.2 oz) SpO2 96% BMI 30.44 kg/m Last documented pain score (0-10 scale): Last Weight: Wt Readings from Last 1 Encounters: 08/19/23 90.8 kg (200 lb 3.2 oz) Mental Status: {BONNIE Patient Mental Status:81490} IV Access: {BONNIE IV Access:62334} Nursing Mobility/ADLs: Walking Minimal assistance Transfer Minimal assistance Bathing Minimal assistance Dressing Minimal assistance Toileting Minimal assistance Feeding Independent Automotive Title Clerk Total assistance Med Delivery yes Wound Care Documentation and Therapy: Elimination: Continence: Bowel: yes Bladder: yes Urinary Catheter: None Colostomy/Ileostomy/Ileal Conduit: None Date of Last BM: 08-19-23 Intake/Output Summary (Last 24 hours) at 08/21/2023 1002 Last data filed at 08/21/2023 0430 Gross per 24 hour Intake 600 ml Output -- Net 600 ml I/O last 3 completed shifts: In: 910 (10 mL/kg) [P.O.:700; I.V.:200 (2.2 mL/kg); IV Piggyback:10] Out: 200 (2.2 mL/kg) [Urine:200 (0.1 mL/kg/hr)] Weight: 90.8 kg Safety Concerns: at risk for falls and history of seizures Impairments/Disabilities: ORIENTATION Nutrition Therapy: Current Nutrition Therapy: Oral diet: general Routes of Feeding: oral Liquids: thin liquids Daily Fluid Restriction: no Last Modified Barium Swallow with Video (Video Swallowing Test): not done Treatments at the Time of Hospital Discharge: Respiratory Treatments: Oxygen Therapy: is not on home oxygen therapy. Ventilator: No ventilator support Rehab Therapies: physical therapy and occupational therapy Weight Bearing Status/Restrictions: no restriction Other Medical Equipment (for information only, NOT a DME order): none Other Treatments: Patient's personal belongings (please select all that are sent with patient): clothing RN SIGNATURE: MANAGEMENT/SOCIAL WORK SECTION Inpatient Status Date: 08/19/2023 Readmission Risk Assessment Score: @[email or web address]@ Discharging to Facility/ Agency Name: [facility] Address: [address] [place] [address] Industrial Cleaning Technician/Payroll Master signature: ICIAN SECTION Prognosis: fair Condition at Discharge: stable Rehab Potential (if transferring to Rehab): fair Recommended Labs or Other Treatments After Discharge: Physician Certification: I certify the above information and transfer of Kari Allan is necessary for the continuing treatment of the diagnosis listed and that he requires [facility] facility for greater than 30 days. Update Admission H&P: No change in H&P PHYSICIAN SIGNATURE: documented in this encounter [facility] 08-21-2023 History of Present illness Narrative Nutrition rescreen complete. Pt assigned a level one for nutrition care. Spoke with patient's sister Clari. Update given. Images from the original note were not included. Hospitalist Progress Note 08/20/2023 [phone]: Please page [phone] ([phone]) for patient care issues. [phone]: Please page [facility] Hospitalist for any issues. Subjective: Admit Date: 08/19/2023 PCP: Antonella Marrero Room#: B2-245/B2-245 A Interval History: No overnight issues. Denies chest pain or sob. No abdominal pain, nausea, vomiting. No fevers or chills. Adult diet Clear liquid @[id number]@ 24HR INTAKE/OUTPUT: Intake/Output Summary (Last 24 hours) at 08/20/2023 1459 Last data filed at 08/20/2023 1210 Gross per 24 hour Intake 510 ml Output 200 ml Net 310 ml Past Medical History: Past Medical History: Diagnosis Date Alcohol abuse with intoxication (HCC) Anemia Anoxic brain damage (CMS/HCC) (HCC) Anxiety Asthma Convulsion (HCC) COPD (chronic obstructive pulmonary disease) (HCC) Depression DVT (deep venous thrombosis) (HCC) Dysphagia Encephalopathy GERD (gastroesophageal reflux disease) Hepatitis Hypertension Impulse control disorder Insomnia, unspecified Need for assistance with personal care Opioid abuse (HCC) Other symbolic dysfunctions Pancreatitis Psychosis (HCC) PTSD (post-traumatic stress disorder) Solitary lung nodule LABS: CBC: Recent Labs 08/19/23 0233 08/20/23 0038 08/20/23 0751 WBC 7.4 5.4 -- RBC 4.05* 3.67* -- HGB 12.4* 11.1* 11.6* HCT 35.8* 32.7* 33.6* MCV 88.4 89.1 -- RDW 13.2 13.3 -- PLT 167 153 -- BMP: Recent Labs 08/19/233 08/20/23 0038 NA 132* 135 K 3.5 3.3* CL 94* 101 CO2 31* 27 BUN 13 11 CREATININE 1.00 1.03 GLUCOSE 100 91 CALCIUM 9.0 8.6 ANIONGAP 7 8 LIVER PROFILE: Recent Labs 08/19/23232 AST 76* ALT 55* BILITOT 0.6 ALKPHOS 86 PROT 7.0 PT/INR: Recent Labs 08/19/23232 PROTIME 10.4 INR 1.0 CARDIAC ENZYMES: No results for input(s): TROPONINI in the last 72 hours. Procalcitonin: No results found for: PROCAL COVID-19 PCR: No results for input(s): COVID19 in the last 72 hours. Objective: Vitals: BP 111/67 Pulse 78 Temp 37.1 C (98.7 F) (Temporal) Resp 17 Ht 5' 8 (1.727 m) Wt 200 lb 3.2 oz (90.8 kg) SpO2 99% BMI 30.44 kg/m Pulse Ox: SpO2 Av.6 % Min: 90 % Max: 99 % Supplemental O2: O2 Flow Rate (L/min): 2 L/min General appearance: No apparent distress, appears stated age, HEENT: Eyes: No scleral icterus Oral: Tongue is semi-moist Cardiovascular: S1/S2 heard, RRR Respiratory: Clear to auscultation bilaterally Abdomen: Soft, non-tender, non-distended bowel sounds positive Musculoskeletal: No obvious deformities seen Skin: No visible rashes or lesions. Medications: baclofen, 10 mg, Oral, TID divalproex sprinkle, 500 mg, Oral, TID escitalopram, 15 mg, Oral, Daily folic acid, 1 mg, Oral, Daily levETIRAcetam, 750 mg, Oral, BID naltrexone, 50 mg, Oral, Daily pantoprazole (ProtoNix) 40 mg in sodium chloride (PF) 0.9 % 10 mL injection, 40 mg, IntraVENous, BID pyridoxine, 25 mg, Oral, Daily QUEtiapine, 200 mg, Oral, BID tamsulosin, 0.4 mg, Oral, Daily thiamine, 100 mg, Oral, Daily Assessment # Coffee ground emesis (recently at [facility] 2 days ago for same and [facility] - s/p EGD on 08/19 showing gastritis. # Abdominal pain likely due to gastritis - resolved now on protonix bid. # Hypokalemia - replace as needed # History of alcohol abuse with anoxic brain injury. # Patient is on Eliquis for an history of DVT # COPD/Asthma without exacerbation # Chronic HTN # Hx of anxiety/depression/psychosis/PTSD # Hx of solitary lung nodule # Hx of opioid abuse # Hx of GERD # Code status: Karo his sister states she is court appointed legal guardian and is primary decision maker. She states he is DNR CCA, no intubation but okay for ICU (states she was told before that if he were to go into cardiac arrest again with his history of brain anoxia, he would be a vegetable. Plan -replace potassium -continue protonix bid. EGD showed gastritis, no active bleeding. H/H stable. -Meanwhile, TCC states referral placed to return back to [facility] via [facility] per TCC request. Await review and response regarding ability to accept. Once approved will discharge back Extended Emergency Contact Information Primary Emergency Contact: Karo Sanford Mobile Relation: Sister Preferred language: Lebanese Traffic Rate Clerk needed? No CHANTELLE DEAN MD Division of Hospitalist Medicine [facility]patient Medical Services/[facility] [place] PAGER: Epic chat Spoke with patient's sister Clari. Clari states that the patient has been at the [facility] in [place] for 8 years, following a seizure lasting an hour and a half. Per Clari, patient was not able to walk or talk for approximately a year after having the seizure. Clari states that the patient uses a standard wheelchair at the [facility], and will only ambulate very short distances d/t frequent falls. Will communicate this information to Dr. Dean. This nurse assisted patient to the bathroom, noting an increase in tremors, unsteadiness, and agitation/anxiety. CIWA completed per nursing judgement. Dr. Dean notified, and Rapid Response nurse Donovan called to assess patient. Will continue to monitor. Patient complaining of increased abdomen pain with black stools, and leg pain, with increased drop of hemoglobin with 2 recent ED visits. Has a history of alcoholism, anoxic brain injury, Hgb dropped from each visit. Transfer to [place] for observation and consult. Latoya Gonzalez MD Division of Hospitalist Medicine [facility] documented in this encounter [facility] 08-21-2023 Note Formatting of this n ote might be different from the original. Care Coordination Daily Note/Update Clinical Update: admitted with abdominal pain and right leg pain with reported coffee-ground emesis and dark stools. History of alcohol abuse with anoxic brain injury. Found to have upper GI bleed with normal EGD. On IV protonix. Discharge Plan: return to [facility] Discharge Barriers: clinical stability Chart reviewed. Checked [facility] - [facility], patient able to return with no auth needed. On bed hold - just needs COVID test to return. Messaged attending to check on clinical stability for discharge. Awaiting response. Received response back from attending - patient cleared for discharge. Requested MD order COVID test per facility request. Messaged RN to notify of COVID test and to request assistance in determining patient transport requirements - okay for wheelchair per RN. Setup wheelchair transport with [facility] for 1200. Phoned patient's sister, Karo Sanford, at [phone] to notify of discharge and transport time. RN notified. RN will notify patient. Messaged facility via [facility] to notify of discharge and transport time. Alerted them to COVID test being ordered and assured results would be sent with AVS and MAR shortly. Discharge orders still pending. TCC portion of BONNIE completed. Sent negative COVID test, AVS, and MAR to facility via [facility]. BONNIE complete. Discharge orders placed. TCC will remain available for any additional discharge needs. [facility] 08-21-2023 Note Formatting of this n ote might be different from the original. Care Coordination Daily Note/Update Clinical Update: admitted with abdominal pain and right leg pain with reported coffee-ground emesis and dark stools. History of alcohol abuse with anoxic brain injury. Found to have upper GI bleed with normal EGD. On IV protonix. Discharge Plan: return to [facility] Discharge Barriers: clinical stability Chart reviewed. Checked [facility] - [facility], patient able to return with no auth needed. On bed hold - just needs COVID test to return. Messaged attending to check on clinical stability for discharge. Awaiting response. Received response back from attending - patient cleared for discharge. Requested MD order COVID test per facility request. Messaged RN to notify of COVID test and to request assistance in determining patient transport requirements - okay for wheelchair per RN. Setup wheelchair transport with [facility] for 1200. Phoned patient's sister, Karo Sanford, at [phone] to notify of discharge and transport time. RN notified. RN will notify patient. Messaged facility via [facility] to notify of discharge and transport time. Alerted them to COVID test being ordered and assured results would be sent with AVS and MAR shortly. Discharge orders still pending. TCC portion of BONNIE completed. Sent negative COVID test, AVS, and MAR to facility via [facility]. BONNIE complete. Discharge orders placed. TCC will remain available for any additional discharge needs. [facility] 08-21-2023 Miscellaneous Notes Care Coordination Daily Note/Update Clinical Update: admitted with abdominal pain and right leg pain with reported coffee-ground emesis and dark stools. History of alcohol abuse with anoxic brain injury. Found to have upper GI bleed with normal EGD. On IV protonix. Discharge Plan: return to [facility] Discharge Barriers: clinical stability Chart reviewed. Checked [facility] - [facility], patient able to return with no auth needed. On bed hold - just needs COVID test to return. Messaged attending to check on clinical stability for discharge. Awaiting response. Received response back from attending - patient cleared for discharge. Requested MD order COVID test per facility request. Messaged RN to notify of COVID test and to request assistance in determining patient transport requirements - okay for wheelchair per RN. Setup wheelchair transport with [facility] for 1200. Phoned patient's sister, Karo Sanford, at [phone] to notify of discharge and transport time. RN notified. RN will notify patient. Messaged facility via [facility] to notify of discharge and transport time. Alerted them to COVID test being ordered and assured results would be sent with AVS and MAR shortly. Discharge orders still pending. TCC portion of BONNIE completed. Sent negative COVID test, AVS, and MAR to facility via [facility]. BONNIE complete. Discharge orders placed. TCC will remain available for any additional discharge needs. Problem: Pain - Adult Goal: Verbalizes/displays adequate comfort level or baseline comfort level Outcome: Progressing Problem: Safety - Adult Goal: Free from fall injury Outcome: Progressing Problem: Discharge Planning Goal: Discharge to home or other facility with appropriate resources Outcome: Progressing Problem: Chronic Conditions and Co-morbidities Goal: Patient's chronic conditions and co-morbidity symptoms are monitored and maintained or improved Outcome: Progressing The patient is Moderately Stable - Low risk of patient condition declining or worsening The patient's goals for the shift include rest The clinical goals for the shift include orientation to new surroundings Over the shift, the patient did not make progress toward the following goals. Barriers to progression include cognitive barrier. Recommendations to address these barriers include reorient as needed. Images from the original note were not included. Care Management Progress Note TRANSITIONAL CARE DAILY NOTE/UPDATES: Patient remains on 2E due to upper GI bleed. Clinical updates: patient had normal EDG today. Patient on IV protonix, potassium low at 3.3. GI following. Discharge plan: back to [facility], will need a Covid test prior to returning. Discharge obstacles: none noted. TCC to continue to follow. Discharge Milestones and Delays Expected Date/Time: 08/22/[address] discharge order Complete med reconciliation Case mgmt discharge readiness Clinical Stability Diagnsotic Workup Expected Discharge History Expected Date/Time Set By Reviewed At 08/22/2023 Neyda Sifuentes RN 08/20/2023 7:30 AM TCC estimate 08/22/2023 Neyda Sifuentes RN 08/19/2023 8:40 AM 08/22/2023 James Maravilla MD 08/19/2023 7:37 AM 08/22/2023 James Maravilla MD 08/19/2023 3:11 AM Length of Stay (Days): 1 GMLOS: No GMLOS Documented POST ENDOSCOPY PROCEDURE TRANSFER REPORT Procedure completed: Esophagogastroduodenoscopy diagnostic Findings: See Dr. Forrester' notes Specimens obtained: NA Medications administered: see Anesthesia's notes Additional Info: No adverse events or complications. For additional Questions please call Endoscopy at [phone]. [facility] You! [facility] Name[facility] Kari Allan Procedure Date: 08/20/2023 10:48 AM Gender: Male Date of : 1970 Age: 52 Admit Type: Inpatient Note Status: Finalized Endoscopist: Galileo Forrester MD, [id number] Procedure: Upper GI endoscopy Indications: Coffee-ground emesis Findings: The examined duodenum was normal. Localized mild inflammation characterized by erythema was found in the gastric antrum. There was evidence of a closed previous gastrostomy present in the gastric body. This was characterized by healthy appearing mucosa. One benign-appearing, intrinsic moderate (circumferential scarring or stenosis; an endoscope may pass) stenosis was found in the lower third of the esophagus. This stenosis measured 1 cm (inner diameter). The stenosis was traversed. LA Grade B (one or more mucosal breaks greater than 5 mm, not extending between the tops of two mucosal folds) esophagitis with no bleeding was found at the gastroesophageal junction. Impression: - Normal examined duodenum. - Gastritis. - Closed previous gastrostomy present characterized by healthy appearing mucosa. - Benign-appearing esophageal stenosis. - LA Grade B esophagitis with no bleeding. - No specimens collected. Recommendation: - Resume previous diet. - Continue present medications. - Continue to monitor Hgb closely and signs of additional bleeding. Referring MD: Antonella Marrero MD Medicines: Monitored Anesthesia Care, See the Anesthesia note for documentation of the administered medications Procedure: Pre-Anesthesia Assessment: - Prior to the procedure, a History and Physical was performed, and patient medications and allergies were reviewed. The patient's tolerance of previous anesthesia was also reviewed. The risks and benefits of the procedure and the sedation options and risks were discussed with the patient. All questions were answered, and informed consent was obtained. Prior Anticoagulants: The patient last took Eliquis (apixaban) 1 day prior to the procedure. ASA Grade Assessment: III - A patient with severe systemic disease. After reviewing the risks and benefits, the patient was deemed in satisfactory condition to undergo the procedure. After obtaining informed consent, the endoscope was passed under direct vision. Throughout the procedure, the patient's blood pressure, pulse, and oxygen saturations were monitored continuously. The Endoscope was introduced through the mouth, and advanced to the second part of duodenum. The upper GI endoscopy was accomplished without difficulty. The patient tolerated the procedure well. Complications: No immediate complications. Procedure Code(s): --- Professional --- 25268, Esophagogastroduodenoscopy, flexible, transoral; diagnostic, including collection of specimen(s) by brushing or washing, when performed (separate procedure) --- Technical --- 49960, Esophagogastroduodenoscopy, flexible, transoral; diagnostic, including collection of specimen(s) by brushing or washing, when performed (separate procedure) Diagnosis Code(s): --- Professional --- K29.70, Gastritis, unspecified, without bleeding Z98.890, Other specified postprocedural states K22.2, Esophageal obstruction K20.90, Esophagitis, unspecified without bleeding K92.0, Hematemesis --- Technical --- K29.70, Gastritis, unspecified, without bleeding Z98.890, Other specified postprocedural states K22.2, Esophageal obstruction K20.90, Esophagitis, unspecified without bleeding K92.0, Hematemesis CPT copyright 2021 [employer]. All rights reserved. The codes documented in this report are preliminary and upon account consultant review may be revised to meet current compliance requirements. Attending Participation: I personally performed the entire procedure. Galileo Forrester MD 08/20/2023 12:04:33 PM This report has been signed electronically. Number of Addenda: 0 Note Initiated On: 08/20/2023 10:48 AM The patient is Moderately Stable - Low risk of patient condition declining or worsening The patient's goals for the shift include rest The clinical goals for the shift include orientation to new surroundings Over the shift, the patient did not make progress toward the following goals. Barriers to progression include continued c/o pain to right calf. Recommendations to address these barriers include monitor.. Problem: Pain - Adult Goal: Verbalizes/displays adequate comfort level or baseline comfort level Outcome: Not Progressing Problem: Discharge Planning Goal: Discharge to home or other facility with appropriate resources Outcome: Not Progressing Called to bedside to assess pt r/t pt's weakened gait. Upon assessment VS stable, A+Ox1 pt complains of pain in abd and right leg. Lungs clear VICKY, No strength or sensation deficits. Pt has mild tremor BUE. Pt is poor historian. Reviewed med list and spoke with Za CONTRERAS. Pt to remain at current level of care. Referral placed to return back to [facility] via [facility] per TCC request. Await review and response regarding ability to accept. TCC notified. Care Managment Initial Assessment Date: 08/19/2023 Patient Name: Kari Allan : 1970 Patient Information Source of Information: Patient Cognition/Language: WFL - Within Functional Limits Permission given to speak with patient metals sales representative/caregiver as indicated: Yes (Karo Sanford (Sister) [phone]) Confirmation of Payer with patient/family: Yes Payer Name: [place] Medicaid [place]: No Confirmation of Primary Care Physician: Confirmed PCP Name: Antonella marrero Seen in last 2 years?: Yes Primary Caregiver: Other (Comment) ([facility] staff) If assistance needed, confirmed caregiver ready, willing and able to care for patient at discharge: Confirmed with: Living Arrangements Current Residence: Number of Floors Number of Entry Steps: Bed/Bath Levels: Facility: [facility] Facility Name: [facility] Plan to Return: Yes Lives with: Support Systems: Family members Activities of Daily Living Ambulation: Independent Bathing/Dressing: Assistance Elimination/Continence/Toileting: Independent Feeding: Independent Who Assists with Activities of Daily Living: ECF staff Instrumental Activities of Daily Living Prescription Coverage: Yes Pharmacy Used: whoever [facility] uses Medication Management: Assistance Type: Dose packaging system Who assists with medication securing and setup?: ECF staff Transportation/Shopping: Assistance Provider Transportation/Shopping Assistance Provider Name: [facility] family Transportation Mode: Car, Senior/disability transport service Needs Assistance with Transportation at Discharge: No (SW will arrange transportation back to [facility]) Meal Preparation: Assistance Provider Meal Prep Assistance Provider Name: EC staff Laundry/Cleaning: Assistance Provider Laundry/Cleaning Assistance Provider Name: [facility] staff Finances/Bill Paying: Assistance Provider Finances/Bill Payer Assistance Provider Name: [facility] staff Communication: Independent Types of Care Services/Equipment Utilized Care Services: Dialysis Type: NA Durable Medical Equipment: Other (Comment) (patient states none) Patient's Goal/Discharge Plan Patient expects to be discharged to: [facility] Discharge Planning Actions: Continue to follow Patient's Choice Rights and [employer] and Collaborative Relationships Disclosed as Indicated for Post-Acute Care: Interdisciplinary Team Engagement: Social Work Referral for: Additional Information: Spoke with patient at bedside. Introduced self and role. Discharge planning needs discussed. Patient in hospital due to upper GI bleed. Was having abdominal pine, coffee ground emesis an dark stools so was sent to ED. Occult stool was positive. Has some abnormal labs. GI consulted. Lives at [facility]. Task sent to [facility] via Careport to place return referral to above facility. Patient will return when medically stable. TCC will continue to follow. Neyda Sifuentes RN Images from the original note were not included. ADVANCED CARE PLANNING Kari Parmjit Lyndsey : 1970 Primary Care Physician: Antonella Marrero The patient and/or family/surrogate voluntarily agreed to participate in ACP services. Patient s cognitive capacity: poor, does NOT know place ([facility]), cannot tell me year. Able to answer simple questions. Code Status: [_] [FULL CODE - Continue all advanced life support: CPR,intubation,invasive procedures] [X] [DNR-CCA - DO NOT do CPR, no intubation] [_] [DNR-CHASSIS ENGINEER - Comfort care only] [_] DNR form [was/was not] signed Summary of discussion: The patient court appointed legal Guardian is the following: Karo (sister). [Condition that instigated the ACP on this DOS, relevant PMH, functional status, goals of care, and whom this was discussed with including names and relationship to the patient, and any relevant advance care documentation discussion] I answered all the patient/family questions that I could within the range and scope of the current medical situation. We discussed the medical conditions, risks, benefits, outcomes, and goals of care at this time for the patient's medical issues at hand in the face of the patient's chronic issues and current presentation. Total time spent: 6 minutes were spent discussing the patient's resuscitation status, advance care planning, and end of life care, with patient and/or family/surrogate. CHANTELLE DEAN MD [facility] 08/19/2023, 1:21 PM Associated Order(s): [facility] SPECIFIC POCUS ORDER Procedure [facility] SPECIFIC POCUS ORDER Performed by: James Maravilla MD Authorized by: James Maravilla MD Type of Exam: DVT Indications for Ultrasound: Right leg pain Credentialed Provider Attestation: Are you an Ultrasound Credentialed Provider?: Yes Does PoC US immage meet quality guidelines?: Adequate Is PoC US Chargeable?: $Charge$ Signed: James Maravilla Procedure details: Indications: Lower extremity pain Assessment for: DVT Findings: Right common femoral vein: Compressible Right deep and superficial femoral veins: Compressible Right popliteal vein: Compressible Impression: DVT: None James Maravilla MD 08/19/23 0305 documented in this encounter [facility] 08-21-2023 Plan of care note Problem: Pain - Adult Goal: Verbalizes/displays adequate comfort level or baseline comfort level Outcome: Progressing Problem: Safety - Adult Goal: Free from fall injury Outcome: Progressing Problem: Discharge Planning Goal: Discharge to home or other facility with appropriate resources Outcome: Progressing Problem: Chronic Conditions and Co-morbidities Goal: Patient's chronic conditions and co-morbidity symptoms are monitored and maintained or improved Outcome: Progressing The patient is Moderately Stable - Low risk of patient condition declining or worsening The patient's goals for the shift include rest The clinical goals for the shift include orientation to new surroundings Over the shift, the patient did not make progress toward the following goals. Barriers to progression include cognitive barrier. Recommendations to address these barriers include reorient as needed. T [facility] 08-20-2023 Note Hospitalist Progress Note 08/20/2023 [phone]: Please page mn ([phone]) for patient care issues. [phone]: Please page [facility] Hospitalist for any issues. Subjective: Admit Date: 08/19/2023 PCP: Antonella Marrero Room#: B2-245/B2-245 A Interval History: No overnight issues. Denies chest pain or sob. No abdominal pain, nausea, vomiting. No fevers or chills. Adult diet Clear liquid @[id number]@ 24HR INTAKE/OUTPUT: Intake/Output Summary (Last 24 hours) at 08/20/2023 1459 Last data filed at 08/20/2023 1210 Gross per 24 hour Intake 510 ml Output 200 ml Net 310 ml Past Medical History: Past Medical History: Diagnosis Date Alcohol abuse with intoxication (HCC) Anemia Anoxic brain damage (CMS/HCC) (HCC) Anxiety Asthma Convulsion (HCC) COPD (chronic obstructive pulmonary disease) (HCC) Depression DVT (deep venous thrombosis) (HCC) Dysphagia Encephalopathy GERD (gastroesophageal reflux disease) Hepatitis Hypertension Impulse control disorder Insomnia, unspecified Need for assistance with personal care Opioid abuse (HCC) Other symbolic dysfunctions Pancreatitis Psychosis (HCC) PTSD (post-traumatic stress disorder) Solitary lung nodule LABS: CBC: Recent Labs 08/19/23 0233 08/20/23 0038 08/20/23 0751 WBC 7.4 5.4 -- RBC 4.05* 3.67* -- HGB 12.4* 11.1* 11.6* HCT 35.8* 32.7* 33.6* MCV 88.4 89.1 -- RDW 13.2 13.3 -- PLT 167 153 -- BMP: Recent Labs 08/19/233 08/20/23 0038 NA 132* 135 K 3.5 3.3* CL 94* 101 CO2 31* 27 BUN 13 11 CREATININE 1.00 1.03 GLUCOSE 100 91 CALCIUM 9.0 8.6 ANIONGAP 7 8 LIVER PROFILE: Recent Labs 08/19/233 AST 76* ALT 55* BILITOT 0.6 ALKPHOS 86 PROT 7.0 PT/INR: Recent Labs 08/19/23232 PROTIME 10.4 INR 1.0 CARDIAC ENZYMES: No results for input(s): TROPONINI in the last 72 hours. Procalcitonin: No results found for: PROCAL COVID-19 PCR: No results for input(s): COVID19 in the last 72 hours. Objective: Vitals: BP 111/67 Pulse 78 Temp 37.1 ?C (98.7 ?F) (Temporal) Resp 17 Ht 5' 8 (1.727 m) Wt 200 lb 3.2 oz (90.8 kg) SpO2 99% BMI 30.44 kg/m? Pulse Ox: SpO2 Av.6 % Min: 90 % Max: 99 % Supplemental O2: O2 Flow Rate (L/min): 2 L/min General appearance: No apparent distress, appears stated age, HEENT: Eyes: No scleral icterus Oral: Tongue is semi-moist Cardiovascular: S1/S2 heard, RRR Respiratory: Clear to auscultation bilaterally Abdomen: Soft, non-tender, non-distended bowel sounds positive Musculoskeletal: No obvious deformities seen Skin: No visible rashes or lesions. Medications: baclofen, 10 mg, Oral, TID divalproex sprinkle, 500 mg, Oral, TID escitalopram, 15 mg, Oral, Daily folic acid, 1 mg, Oral, Daily levETIRAcetam, 750 mg, Oral, BID naltrexone, 50 mg, Oral, Daily pantoprazole (ProtoNix) 40 mg in sodium chloride (PF) 0.9 % 10 mL injection, 40 mg, IntraVENous, BID pyridoxine, 25 mg, Oral, Daily QUEtiapine, 200 mg, Oral, BID tamsulosin, 0.4 mg, Oral, Daily thiamine, 100 mg, Oral, Daily Assessment # Coffee ground emesis (recently at [facility] 2 days ago for same and [facility] - s/p EGD on 08/19 showing gastritis. # Abdominal pain likely due to gastritis - resolved now on protonix bid. # Hypokalemia - replace as needed # History of alcohol abuse with anoxic brain injury. # Patient is on Eliquis for an history of DVT # COPD/Asthma without exacerbation # Chronic HTN # Hx of anxiety/depression/psychosis/PTSD # Hx of solitary lung nodule # Hx of opioid abuse # Hx of GERD # Code status: Karo his sister states she is court appointed legal guardian and is primary decision maker. She states he is DNR CCA, no intubation but okay for ICU (states she was told before that if he were to go into cardiac arrest again with his history of brain anoxia, he would be a vegetable. Plan -replace potassium -continue protonix bid. EGD showed gastritis, no active bleeding. H/H stable. -Meanwhile, TCC states referral placed to return back to [facility] per TCC request. Await review and response regarding ability to accept. Once approved will discharge back Extended Emergency Contact Information Primary Emergency Contact: Karo Sanford Mobile Relation: Sister Preferred language: Lebanese Traffic Rate Clerk needed? No CHANTELLE DEAN MD Division of Hospitalist Medicine Inpatient Medical Services/[facility] [place] PAGER: [facility] 08-20-2023 Note Formatting of this n ote is different from the original. Images from the original note were not included. Care Management Progress Note TRANSITIONAL CARE DAILY NOTE/UPDATES: Patient remains on 2E due to upper GI bleed. Clinical updates: patient had normal EDG today. Patient on IV protonix, potassium low at 3.3. GI following. Discharge plan: back to [facility], will need a Covid test prior to returning. Discharge obstacles: none noted. TCC to continue to follow. Discharge Milestones and Delays Expected Date/Time: 08/22/[address] discharge order Complete med reconciliation Case mgmt discharge readiness Clinical Stability Diagnsotic Workup Expected Discharge History Expected Date/Time Set By Reviewed At 08/22/2023 Neyda Sifuentes RN 08/20/2023 7:30 AM TCC estimate 08/22/2023 Neyda Sifuentes RN 08/19/2023 8:40 AM 08/22/2023 James Maravilla MD 08/19/2023 7:37 AM 08/22/2023 James Maravilla MD 08/19/2023 3:11 AM Length of Stay (Days): 1 GMLOS: No GMLOS Documented [facility] 08-20-2023 Note Formatting of this n ote is different from the original. Images from the original note were not included. Care Management Progress Note TRANSITIONAL CARE DAILY NOTE/UPDATES: Patient remains on 2E due to upper GI bleed. Clinical updates: patient had normal EDG today. Patient on IV protonix, potassium low at 3.3. GI following. Discharge plan: back to [facility], will need a Covid test prior to returning. Discharge obstacles: none noted. TCC to continue to follow. Discharge Milestones and Delays Expected Date/Time: 08/22/[address] discharge order Complete med reconciliation Case mgmt discharge readiness Clinical Stability Diagnsotic Workup Expected Discharge History Expected Date/Time Set By Reviewed At 08/22/2023 Neyda Sifuentes RN 08/20/2023 7:30 AM TCC estimate 08/22/2023 Neyda Sifuentes RN 08/19/2023 8:40 AM 08/22/2023 James Maravilla MD 08/19/2023 7:37 AM 08/22/2023 James Maravilla MD 08/19/2023 3:11 AM Length of Stay (Days): 1 GMLOS: No GMLOS Documented [facility] 08-20-2023 Note Care Management Prog ress Note TRANSITIONAL CARE DAILY NOTE/UPDATES: Patient remains on 2E due to upper GI bleed. Clinical updates: patient had normal EDG today. Patient on IV protonix, potassium low at 3.3. GI following. Discharge plan: back to [facility], will need a Covid test prior to returning. Discharge obstacles: none noted. TCC to continue to follow. Discharge Milestones and Delays Expected Date/Time: 08/22/[address] discharge order Complete med reconciliation Case mgmt discharge readiness Clinical Stability Diagnsotic Workup Expected Discharge History Expected Date/Time Set By Reviewed At 08/22/2023 Neyda Sifuentes RN 08/20/2023 7:30 AM TCC estimate 08/22/2023 Neyda Sifuentes RN 08/19/2023 8:40 AM 08/22/2023 James Maravilla MD 08/19/2023 7:37 AM 08/22/2023 James Maravilla MD 08/19/2023 3:11 AM Length of Stay (Days): 1 GMLOS: No GMLOS Documented [facility] 08-20-2023 Note Patient: Kari humphreymadisonendy Procedure Summary Date: 08/20/23 Room / Location: [place] [address] / [facility] Gastroenterology Anesthesia Start: 1141 Anesthesia Stop: 1210 Procedure: ESOPHAGOGASTRODUODENOSCOPY DIAGNOSTIC Diagnosis: Melena Providers: Galileo Forrester MD Responsible Provider: Kari Amin CRNA Anesthesia Type: TIVA ASA Status: 3 Anesthesia Type: No value filed. Vitals Value Taken Time BP 92/63 08/20/23 1216 Temp 37.1 ?C (98.7 ?F) 08/20/23 1206 Pulse 81 08/20/23 1216 Resp 16 08/20/23 1216 SpO2 99 % 08/20/23 1216 Anesthesia Post Evaluation Patient location during evaluation: PACU Patient participation: complete - patient participated Level of consciousness: awake and alert Pain management: satisfactory to patient Airway patency: patent Dental Injury: no Cardiovascular status: acceptable, blood pressure returned to baseline and hemodynamically stable Respiratory status: acceptable and spontaneous ventilation Hydration status: euvolemic Nausea/Vomiting: controlled No notable events documented. Patient can be discharged once all PACU criteria has been met. [facility] 08-20-2023 Note Patient: Kari Heart ally Procedure Summary Date: 08/20/23 Room / Location: [facility] / [facility] Gastroenterology Anesthesia Start: 1141 Anesthesia Stop: 1210 Procedure: ESOPHAGOGASTRODUODENOSCOPY DIAGNOSTIC Diagnosis: Melena Providers: Galileo Forrester MD Responsible Provider: Kari Amin CRNA Anesthesia Type: TIVA ASA Status: 3 Anesthesia Type: No value filed. Vitals Value Taken Time BP 92/63 08/20/23 1216 Temp 37.1 ?C (98.7 ?F) 08/20/23 1206 Pulse 81 08/20/23 1216 Resp 16 08/20/23 1216 SpO2 99 % 08/20/23 1216 Anesthesia Post Evaluation Patient location during evaluation: PACU Patient participation: complete - patient participated Level of consciousness: awake and alert Pain management: satisfactory to patient Multimodal analgesia pain management approach Airway patency: patent Two or more strategies used to mitigate risk of obstructive sleep apnea Cardiovascular status: acceptable and hemodynamically stable Respiratory status: acceptable Hydration status: acceptable No notable events documented. MIPS #430 PONV Patient did not receive an inhalational anesthetic (XX430) MIPS # 424 Perioperative Temperature Management Anesthesia time was less than 60 minutes (4256F) MIPS #477 Multimodal Pain Management Emergent case Exlusion- Stop here (M1142) MIPS #404 Anesthesiology Smoking Abstinence The patient is not a current smoker (e.g. cigarette, cigar, pipe, e-cigarette/vaping/marijuana) If no stop here (XX404) I completed my handoff to the receiving clinician during which we: 1. Identified the patient 2. Identified the responsible provider 3. Reviewed the pertinent medical history 4. Discussed the surgical course 5. Reviewed intra-op anesthesia management and issues during anesthesia 6. Set expectations for post-procedure period 7. Allowed opportunity for questions and acknowledgement of understanding. [facility] 08-20-2023 Note Formatting of this n ote might be different from the original. POST ENDOSCOPY PROCEDURE TRANSFER REPORT Procedure completed: Esophagogastroduodenoscopy diagnostic Findings: See Dr. Forrester' notes Specimens obtained: NA Medications administered: see Anesthesia's notes Additional Info: No adverse events or complications. For additional Questions please call Endoscopy at [phone]. Thank You! [facility] 08-20-2023 Note Formatting of this n ote might be different from the original. POST ENDOSCOPY PROCEDURE TRANSFER REPORT Procedure completed: Esophagogastroduodenoscopy diagnostic Findings: See Dr. Forrester' notes Specimens obtained: NA Medications administered: see Anesthesia's notes Additional Info: No adverse events or complications. For additional Questions please call Endoscopy at [phone]. Thank You! [facility] 08-20-2023 Note POST ENDOSCOPY PROCE DURE TRANSFER REPORT Procedure completed: Esophagogastroduodenoscopy diagnostic Findings: See Dr. Forrester' notes Specimens obtained: NA Medications administered: see Anesthesia's notes Additional Info: No adverse events or complications. For additional Questions please call Endoscopy at [phone]. Thank You! [facility] 08-20-2023 Note Patient: Kari canales Procedure Information Anesthesia Start Date/Time: 08/20/23 1141 Procedure: ESOPHAGOGASTRODUODENOSCOPY DIAGNOSTIC Location: [place] [address] / [facility] Gastroenterology Providers: Galileo Forrester MD Relevant Problems Anesthesia (+) MARICRUZ (obstructive sleep apnea) Cardio (+) Deep vein thrombosis (HCC) (+) Hypertension GI (+) GERD (gastroesophageal reflux disease) /Renal (+) Renal cyst Neuro/Psych (+) Seizure (HCC) Pulmonary (+) Chronic bronchitis (HCC) (+) MARICRUZ (obstructive sleep apnea) Cardiovascular (+) Deep vein thrombosis (HCC) Past Medical History: Past Medical History: No date: Alcohol abuse with intoxication (HCC) No date: Anemia No date: Anoxic brain damage (CMS/HCC) (HCC) No date: Anxiety No date: Asthma No date: Convulsion (HCC) No date: COPD (chronic obstructive pulmonary disease) (HCC) No date: Depression No date: DVT (deep venous thrombosis) (HCC) No date: Dysphagia No date: Encephalopathy No date: GERD (gastroesophageal reflux disease) No date: Hepatitis No date: Hypertension No date: Impulse control disorder No date: Insomnia, unspecified No date: Need for assistance with personal care No date: Opioid abuse (HCC) No date: Other symbolic dysfunctions No date: Pancreatitis No date: Psychosis (HCC) No date: PTSD (post-traumatic stress disorder) No date: Solitary lung nodule Past Surgical History: Past Surgical History: No date: APPENDECTOMY No date: BACK SURGERY Comment: 5 vertabrae fused No date: CHOLECYSTECTOMY 2015: COLONOSCOPY 04/08/2022: CT CHEST ANGIOGRAM W AND/OR WO IV CONTRAST Comment: CT CHEST ANGIOGRAM W AND/OR WO IV CONTRAST 04/08/[address]22 [facility] [address] IMAGING No date: CYST REMOVAL Comment: wrist 03/01/2017: GASTROSTOMY TUBE PLACEMENT 02/16/2017: UPPER GASTROINTESTINAL ENDOSCOPY Social History: TOBACCO: reports that he has been smoking cigarettes. He has a 80 pack-year smoking history. He has never used smokeless tobacco. ETOH: reports current alcohol use. Social History Substance and Sexual Activity Drug Use Not Currently Family History: Family History Problem Relation Name Age of Onset Diabetes Mother Diabetes Brother Screening: unknown Clinical information reviewed: Tobacco Allergies Meds Med Hx Surg Hx Fam Hx Soc Hx Physical Exam Airway Mallampati: II TM distance: >3 FB Neck ROM: full Mouth Open: limitedendotracheal tube not in place Cardiovascular Dental dentition normal Pulmonary Abdominal Anesthesia Plan patient is NPO appropriate Any family history or previous problems with anesthesia no ASA 3 TIVA Any family history or previous problems with anesthesia no The patient is not a current smoker. Anesthetic plan and risks discussed with patient. MARICRUZ Screening Labs: Lab Results Component Value Date WBC 5.4 08/20/2023 HGB 11.6 (L) 08/20/2023 HCT 33.6 (L) 08/20/2023 MCV 89.1 08/20/2023 PLT 153 08/20/2023 Lab Results Component Value Date NA 135 08/20/2023 K 3.3 (L) 08/20/2023 CL 101 08/20/2023 CO2 27 08/20/2023 BUN 11 08/20/2023 CREATININE 1.03 08/20/2023 GLUCOSE 91 08/20/2023 CALCIUM 8.6 08/20/2023 PROT 7.0 08/19/2023 ALKPHOS 86 08/19/2023 AST 76 (H) 08/19/2023 ALT 55 (H) 08/19/2023 EGFR 86.3 08/20/2023 Pain Score: 10 - Worst possible pain No echocardiogram results found for the past 14 days 06/07/23 ECG 12-LEAD 06/07/2023 2:05 PM (Final) Impression SINUS RHYTHM BASELINE WANDER Electronically Signed On 06-07-2023 14:04:59 EST by James Maravilla Signed by: James Maravilla MD on 06/07/2023 2:05 PM [facility] 08-20-2023 Consult note Associated Order (s): Inpatient consult to Gastroenterology Images from the original note were not included. GI CONSULTATION Patient: Kari Allan : 1970 Primary Care Physician: Antonella Marrero Inpatient consult to Gastroenterology Consult performed by: Galileo Forrester MD Consult ordered by: Chantelle Dean MD CHIEF COMPLAINT: coffee ground emesis HISTORY OF PRESENT ILLNESS: 52 yo male with PMH as below whom GI is consulted for coffee ground emesis. Resides in a nursing facility after anoxic brain injury many years ago. Staff noticed an episode of dark colored emesis as well as melena. Remote history of EtOH abuse with dilations of esophagus (per sister Karo). No recent EGD's. On Eliquis for a history of DVT's. Hgb 11.6 (previously 12.4 and 15.5). Last dose of Eliquis was possibly 08/18. PAST MEDICAL HISTORY: Past Medical History: Diagnosis Date Alcohol abuse with intoxication (HCC) Anemia Anoxic brain damage (CMS/HCC) (HCC) Anxiety Asthma Convulsion (HCC) COPD (chronic obstructive pulmonary disease) (HCC) Depression DVT (deep venous thrombosis) (HCC) Dysphagia Encephalopathy GERD (gastroesophageal reflux disease) Hepatitis Hypertension Impulse control disorder Insomnia, unspecified Need for assistance with personal care Opioid abuse (HCC) Other symbolic dysfunctions Pancreatitis Psychosis (HCC) PTSD (post-traumatic stress disorder) Solitary lung nodule PAST SURGICAL HISTORY: Past Surgical History: Procedure Laterality Date APPENDECTOMY BACK SURGERY 5 vertabrae fused CHOLECYSTECTOMY COLONOSCOPY 2014 CT CHEST ANGIOGRAM W AND/OR WO IV CONTRAST 04/08/2022 CT CHEST ANGIOGRAM W AND/OR WO IV CONTRAST 04/08/[address]22 [facility] CT IMAGING CYST REMOVAL wrist GASTROSTOMY TUBE PLACEMENT 03/01/2017 UPPER GASTROINTESTINAL ENDOSCOPY 02/16/2017 FAMILY HISTORY: Family History Problem Relation Name Age of Onset Diabetes Mother Diabetes Brother SOCIAL HISTORY: TOBACCO: reports that he has been smoking cigarettes. He has a 80 pack-year smoking history. He has never used smokeless tobacco. ETOH: reports current alcohol use. DRUGS: reports that he does not currently use drugs. Medications: Prior to Admission medications Medication Sig Start Date End Date Taking? Authorizing Provider acetaminophen (Tylenol) 325 MG tablet Take 2 tablets by mouth every 6 hours as needed for fever, mild pain (1-3) or moderate pain (4-6). Historical Provider, Albuterol Sulfate 108 (90 Base) MCG/ACT aerosol powder Inhale 1 puff every 2 hours as needed. Historical Provider, apixaban (Eliquis) 5 MG tablet Take 5 mg by mouth in the morning and 5 mg before bedtime. Historical Provider, baclofen (Lioresal) 10 MG tablet Take 10 mg by mouth 3 times daily. Historical Provider, bisacodyl (Dulcolax) 10 MG suppository Insert 10 mg into the rectum Daily as needed for constipation. Historical Provider, bisacodyl (Dulcolax) 5 MG EC tablet Take 5 mg by mouth Daily as needed. Historical Provider, divalproex sprinkle (Depakote Sprinkle) [address] capsule Take 500 mg by mouth 3 times daily. Historical Provider, escitalopram (Lexapro) 10 MG tablet Take 1.5 tablets by mouth daily. Historical Provider, folic acid (Folvite) 1 MG tablet daily. 11/01/15 Historical Provider, guaiFENesin (Humibid 3) 400 MG tablet Take 400 mg by mouth every 8 hours as needed for congestion. Historical Provider, ipratropium-albuterol (Duo-Neb) 0.5-2.5 mg/3 mL nebulizer solution Inhale 3 mL every 6 hours as needed. Historical Provider, levETIRAcetam (Keppra) 750 MG tablet Take 1 tablet by mouth in the morning and 1 tablet before bedtime. 03/03/17 Historical Provider, magnesium hydroxide (Milk of Magnesia) 400 MG/5ML suspension Take 30 mL by mouth Daily as needed. Historical Provider, melatonin 3 MG tablet 3 mg Nightly as needed. 11/18/18 Historical Provider, Menthol, Topical Analgesic, (Biofreeze Roll-On) 4 % gel Apply topically every 8 hours as needed. Historical Provider, naltrexone (Depade) 50 MG tablet Take 50 mg by mouth in the morning. Historical Provider, MD Nirmatrelvir&Ritonavir 300/100 (Paxlovid, 300/100,) 20 x 150 MG & 10 x 100MG tablet therapy pack Take 3 tablets by mouth in the morning and 3 tablets in the evening. 05/21/23 Ashlie Alcantara DO pantoprazole (ProtoNix) 40 MG EC tablet 40 mg 2 times daily. 03/21/23 Historical Provider, polyethylene glycol, PEG, 3350 (Glycolax) 17 GM/SCOOP powder Take 17 g by mouth daily. 11/18/18 Historical Provider, promethazine (Phenergan) 25 MG tablet Take 1 tablet (25 mg) by mouth every 6 hours as needed for nausea or vomiting for up to 7 days. 08/16/23 08/23/23 Renata Colindres MD pyridoxine (Vitamin B-6) 25 MG tablet 25 mg daily. 11/18/18 Historical Provider, QUEtiapine (SEROquel) 200 MG tablet 200 mg 2 times daily. 11/18/18 Historical Provider, thiamine (Vitamin B-1) 100 MG tablet 100 mg daily. 03/03/17 Historical Provider, Throat Lozenges (Cough Drops Menthol) lozenge Dissolve 1 lozenge in the mouth Once as needed. Historical Provider, traMADol (Ultram) 50 MG tablet 06/01/23 Historical Provider, @MEDCMED@ ALLERGIES: Allergies Allergen Reactions Haloperidol Unknown Other reaction(s): Unknown Copied from mar from halfway [place] REVIEW OF SYSTEMS: No fever, chills, or sweats. Normal appetite and weight. No NOVA, visual disturbance, eye pain, jaundice, sore throat or mouth ulcers. No skin rash or itching. No CP, SOB, SPIVEY, cough or wheeze. No urinary frequency, urgency, hematuria, or dysuria. No myalgia, arthralgia, or joint swelling. No weakness, numbness, or confusion. GI per HPI. No polyuria, polydipsia, heat or cold intolerance. PHYSICAL EXAM: VS: BP 116/70 (BP Location: Right arm, Patient Position: Lying) Pulse 89 Temp 36.1 C (97 F) (Temporal) Resp 14 Ht 5' 8 (1.727 m) Wt 200 lb 3.2 oz (90.8 kg) SpO2 90% BMI 30.44 kg/m Body mass index is 30.44 kg/m . GENERAL: Pleasant and NAD. HEENT: NCAT, PERRLA, EOMI, Scleral anicteric. CV: RRR, NL S1/S2, no murmurs. LUNGS: CTA b/l. No W/R/R. Abdomen: + BS, soft, non-tender and non-distended. No rebound or guarding. Neurologic: A&O x 2, Non-focal. LABS AND IMAGING: Recent blood work and relevant radiologic and endoscopic studies were reviewed and discussed with the patient. Old records have not been requested. CBC: Recent Labs 08/19/23 0233 08/20/23 0038 08/20/23 0751 WBC 7.4 5.4 -- HGB 12.4* 11.1* 11.6* HCT 35.8* 32.7* 33.6* PLT 167 153 -- HEPATIC: Recent Labs 08/19/23232 AST 76* ALT 55* BILITOT 0.6 ALKPHOS 86 LIPASE/AMYLASE: Recent Labs 08/19/23 023 LIPASE 31 LACTATE: No lab exists for component: LACTA BNP: No results for input(s): BNP in the last 72 hours. INR: Recent Labs 08/19/23232 INR 1.0 Vascular US lower extremity venous duplex bilateral Result Date: 08/20/2023 No evidence of deep vein or superficial vein thrombosis in the right lower extremity. Vessels demonstrate normal compressibility, color filling, and phasic and spontaneous flow. No evidence of deep vein or superficial vein thrombosis in the left lower extremity. Vessels demonstrate normal compressibility, color filling, and phasic and spontaneous flow. POCT glucose meter Result Date: 08/19/2023 Performed by: [facility], [address] [place] [address] CLIA ID: [id number] [facility] SPECIFIC POCUS ORDER Result Date: 08/19/2023 James Maravilla MD 08/19/2023 3:[address] [facility] SPECIFIC POCUS ORDER Performed by: James Maravilla MD Authorized by: James Maravilla MD Type of Exam: DVT Indications for Ultrasound: Right leg pain Credentialed Provider Attestation: Are you an Ultrasound Credentialed Provider?: Yes Does PoC US immage meet quality guidelines?: Adequate Is PoC US Chargeable?: $Charge$ Signed: James Maravilla Procedure details: Indications: Lower extremity pain Assessment for: DVT Findings: Right common femoral vein: Compressible Right deep and superficial femoral veins: Compressible Right popliteal vein: Compressible Impression: DVT: None IMPRESSION: Coffee ground emesis with melena - slight drop in Hgb, on Eliquis for DVT; need to r/o gastritis vs PUD DVT on Eliquis - last dose 08/18? Anoxic brain injury EtOH abuse - no recent EtOH use, previous dilations for esophageal stricture, will have random bouts of vomiting RECOMMENDATIONS: Keep patient NPO Will plan on EGD today (spoke with sister Karo for consent) Monitor Hgb and transfuse as necessary Continue PPI Continue to hold Eliquis The benefits, alternatives, and risks of the procedure(s) including (but not exclusive to) pain, sore throat, bleeding, perforation, infection, nausea, vomiting, aspiration, hypoxia/hypotension/allergic reaction(s) due to sedatives, phlebitis, need for hospitalization, need for transfusions, need for antibiotic therapy, need for surgery, and likelihood of missing a lesion, were explained to the patient/guardian/responsible accompanying adult who is agreeable. [facility] Phone: 08-20-2023 Note GI CONSULTATION Patient: Kari Allan : 1970 Primary Care Physician: Antonella Marrero Inpatient consult to Gastroenterology Consult performed by: Galileo Forrester MD Consult ordered by: Chantelle Dean MD CHIEF COMPLAINT: coffee ground emesis HISTORY OF PRESENT ILLNESS: 52 yo male with PMH as below whom GI is consulted for coffee ground emesis. Resides in a nursing facility after anoxic brain injury many years ago. Staff noticed an episode of dark colored emesis as well as melena. Remote history of EtOH abuse with dilations of esophagus (per sister Karo). No recent EGD's. On Eliquis for a history of DVT's. Hgb 11.6 (previously 12.4 and 15.5). Last dose of Eliquis was possibly 08/18. PAST MEDICAL HISTORY: Past Medical History: Diagnosis Date Alcohol abuse with intoxication (HCC) Anemia Anoxic brain damage (CMS/HCC) (HCC) Anxiety Asthma Convulsion (HCC) COPD (chronic obstructive pulmonary disease) (HCC) Depression DVT (deep venous thrombosis) (HCC) Dysphagia Encephalopathy GERD (gastroesophageal reflux disease) Hepatitis Hypertension Impulse control disorder Insomnia, unspecified Need for assistance with personal care Opioid abuse (HCC) Other symbolic dysfunctions Pancreatitis Psychosis (HCC) PTSD (post-traumatic stress disorder) Solitary lung nodule PAST SURGICAL HISTORY: Past Surgical History: Procedure Laterality Date APPENDECTOMY BACK SURGERY 5 vertabrae fused CHOLECYSTECTOMY COLONOSCOPY 2014 CT CHEST ANGIOGRAM W AND/OR WO IV CONTRAST 04/08/2022 CT CHEST ANGIOGRAM W AND/OR WO IV CONTRAST 04/08/[address] [facility] [address] IMAGING CYST REMOVAL wrist GASTROSTOMY TUBE PLACEMENT 03/01/2017 UPPER GASTROINTESTINAL ENDOSCOPY 02/16/2017 FAMILY HISTORY: Family History Problem Relation Name Age of Onset Diabetes Mother Diabetes Brother SOCIAL HISTORY: TOBACCO: reports that he has been smoking cigarettes. He has a 80 pack-year smoking history. He has never used smokeless tobacco. ETOH: reports current alcohol use. DRUGS: reports that he does not currently use drugs. Medications: Prior to Admission medications Medication Sig Start Date End Date Taking? Authorizing Provider acetaminophen (Tylenol) 325 MG tablet Take 2 tablets by mouth every 6 hours as needed for fever, mild pain (1-3) or moderate pain (4-6). Historical Provider, Albuterol Sulfate 108 (90 Base) MCG/ACT aerosol powder Inhale 1 puff every 2 hours as needed. Historical Provider, apixaban (Eliquis) 5 MG tablet Take 5 mg by mouth in the morning and 5 mg before bedtime. Historical Provider, baclofen (Lioresal) 10 MG tablet Take 10 mg by mouth 3 times daily. Historical Provider, bisacodyl (Dulcolax) 10 MG suppository Insert 10 mg into the rectum Daily as needed for constipation. Historical Provider, bisacodyl (Dulcolax) 5 MG EC tablet Take 5 mg by mouth Daily as needed. Historical Provider, divalproex sprinkle (Depakote Sprinkle) [address] capsule Take 500 mg by mouth 3 times daily. Historical Provider, escitalopram (Lexapro) 10 MG tablet Take 1.5 tablets by mouth daily. Historical Provider, folic acid (Folvite) 1 MG tablet daily. 11/01/15 Historical Provider, guaiFENesin (Humibid 3) 400 MG tablet Take 400 mg by mouth every 8 hours as needed for congestion. Historical Provider, ipratropium-albuterol (Duo-Neb) 0.5-2.5 mg/3 mL nebulizer solution Inhale 3 mL every 6 hours as needed. Historical Provider, levETIRAcetam (Keppra) 750 MG tablet Take 1 tablet by mouth in the morning and 1 tablet before bedtime. 03/03/17 Historical Provider, magnesium hydroxide (Milk of Magnesia) 400 MG/5ML suspension Take 30 mL by mouth Daily as needed. Historical Provider, melatonin 3 MG tablet 3 mg Nightly as needed. 11/18/18 Historical Provider, Menthol, Topical Analgesic, (Biofreeze Roll-On) 4 % gel Apply topically every 8 hours as needed. Historical Provider, naltrexone (Depade) 50 MG tablet Take 50 mg by mouth in the morning. Historical Provider, Nirmatrelvir&Ritonavir 300/100 (Paxlovid, 300/100,) 20 x 150 MG & 10 x 100MG tablet therapy pack Take 3 tablets by mouth in the morning and 3 tablets in the evening. 05/21/23 Ashlie Alcantara, pantoprazole (ProtoNix) 40 MG EC tablet 40 mg 2 times daily. 03/21/23 Historical Provider, polyethylene glycol, PEG, 3350 (Glycolax) 17 GM/SCOOP powder Take 17 g by mouth daily. 11/18/18 Historical Provider, promethazine (Phenergan) 25 MG tablet Take 1 tablet (25 mg) by mouth every 6 hours as needed for nausea or vomiting for up to 7 days. 08/16/23 08/23/23 Renata Colindres MD pyridoxine (Vitamin B-6) 25 MG tablet 25 mg daily. 11/18/18 Historical Provider, QUEtiapine (SEROquel) 200 MG tablet 200 mg 2 times daily. 11/18/18 Historical Provider, thiamine (Vitamin B-1) 100 MG tablet 100 mg daily. 03/03/17 Historical Provider, Throat Lozenges (Cough Drops Menthol) (more content not included)... [facility] 08-20-2023 Consult note Associated Order (s): Inpatient consult to Gastroenterology Images from the original note were not included. GI CONSULTATION Patient: Kari Allan : 1970 Primary Care Physician: Antonella Marrero Inpatient consult to Gastroenterology Consult performed by: Galileo Forrester MD Consult ordered by: Chantelle Dean MD CHIEF COMPLAINT: coffee ground emesis HISTORY OF PRESENT ILLNESS: 52 yo male with PMH as below whom GI is consulted for coffee ground emesis. Resides in a nursing facility after anoxic brain injury many years ago. Staff noticed an episode of dark colored emesis as well as melena. Remote history of EtOH abuse with dilations of esophagus (per sister Karo). No recent EGD's. On Eliquis for a history of DVT's. Hgb 11.6 (previously 12.4 and 15.5). Last dose of Eliquis was possibly 08/18. PAST MEDICAL HISTORY: Past Medical History: Diagnosis Date Alcohol abuse with intoxication (HCC) Anemia Anoxic brain damage (CMS/HCC) (HCC) Anxiety Asthma Convulsion (HCC) COPD (chronic obstructive pulmonary disease) (HCC) Depression DVT (deep venous thrombosis) (HCC) Dysphagia Encephalopathy GERD (gastroesophageal reflux disease) Hepatitis Hypertension Impulse control disorder Insomnia, unspecified Need for assistance with personal care Opioid abuse (HCC) Other symbolic dysfunctions Pancreatitis Psychosis (HCC) PTSD (post-traumatic stress disorder) Solitary lung nodule PAST SURGICAL HISTORY: Past Surgical History: Procedure Laterality Date APPENDECTOMY BACK SURGERY 5 vertabrae fused CHOLECYSTECTOMY COLONOSCOPY 2014 CT CHEST ANGIOGRAM W AND/OR WO IV CONTRAST 04/08/2022 CT CHEST ANGIOGRAM W AND/OR WO IV CONTRAST 04/08/[address] [facility] [address] IMAGING CYST REMOVAL wrist GASTROSTOMY TUBE PLACEMENT 03/01/2017 UPPER GASTROINTESTINAL ENDOSCOPY 02/16/2017 FAMILY HISTORY: Family History Problem Relation Name Age of Onset Diabetes Mother Diabetes Brother SOCIAL HISTORY: TOBACCO: reports that he has been smoking cigarettes. He has a 80 pack-year smoking history. He has never used smokeless tobacco. ETOH: reports current alcohol use. DRUGS: reports that he does not currently use drugs. Medications: Prior to Admission medications Medication Sig Start Date End Date Taking? Authorizing Provider acetaminophen (Tylenol) 325 MG tablet Take 2 tablets by mouth every 6 hours as needed for fever, mild pain (1-3) or moderate pain (4-6). Historical Provider, Albuterol Sulfate 108 (90 Base) MCG/ACT aerosol powder Inhale 1 puff every 2 hours as needed. Historical Provider, apixaban (Eliquis) 5 MG tablet Take 5 mg by mouth in the morning and 5 mg before bedtime. Historical Provider, baclofen (Lioresal) 10 MG tablet Take 10 mg by mouth 3 times daily. Historical Provider, bisacodyl (Dulcolax) 10 MG suppository Insert 10 mg into the rectum Daily as needed for constipation. Historical Provider, bisacodyl (Dulcolax) 5 MG EC tablet Take 5 mg by mouth Daily as needed. Historical Provider, divalproex sprinkle (Depakote Sprinkle) [address] capsule Take 500 mg by mouth 3 times daily. Historical Provider, escitalopram (Lexapro) 10 MG tablet Take 1.5 tablets by mouth daily. Historical Provider, folic acid (Folvite) 1 MG tablet daily. 11/01/15 Historical Provider, guaiFENesin (Humibid 3) 400 MG tablet Take 400 mg by mouth every 8 hours as needed for congestion. Historical Provider, ipratropium-albuterol (Duo-Neb) 0.5-2.5 mg/3 mL nebulizer solution Inhale 3 mL every 6 hours as needed. Historical Provider, levETIRAcetam (Keppra) 750 MG tablet Take 1 tablet by mouth in the morning and 1 tablet before bedtime. 03/03/17 Historical Provider, magnesium hydroxide (Milk of Magnesia) 400 MG/5ML suspension Take 30 mL by mouth Daily as needed. Historical Provider, melatonin 3 MG tablet 3 mg Nightly as needed. 11/18/18 Historical Provider, Menthol, Topical Analgesic, (Biofreeze Roll-On) 4 % gel Apply topically every 8 hours as needed. Historical Provider, naltrexone (Depade) 50 MG tablet Take 50 mg by mouth in the morning. Historical Provider, Nirmatrelvir&Ritonavir 300/100 (Paxlovid, 300/100,) 20 x 150 MG & 10 x 100MG tablet therapy pack Take 3 tablets by mouth in the morning and 3 tablets in the evening. 05/21/23 Ashlie Alcantara DO pantoprazole (ProtoNix) 40 MG EC tablet 40 mg 2 times daily. 03/21/23 Historical Provider, polyethylene glycol, PEG, 3350 (Glycolax) 17 GM/SCOOP powder Take 17 g by mouth daily. 11/18/18 Historical Provider, promethazine (Phenergan) 25 MG tablet Take 1 tablet (25 mg) by mouth every 6 hours as needed for nausea or vomiting for up to 7 days. 08/16/23 08/23/23 Renata Colindres MD pyridoxine (Vitamin B-6) 25 MG tablet 25 mg daily. 11/18/18 Historical Provider, QUEtiapine (SEROquel) 200 MG tablet 200 mg 2 times daily. 11/18/18 Historical Provider, thiamine (Vitamin B-1) 100 MG tablet 100 mg daily. 03/03/17 Historical Provider, Throat Lozenges (Cough Drops Menthol) lozenge Dissolve 1 lozenge in the mouth Once as needed. Historical Provider, traMADol (Ultram) 50 MG tablet 06/01/23 Historical Provider, @MEDCMED@ ALLERGIES: Allergies Allergen Reactions Haloperidol Unknown Other reaction(s): Unknown Copied from [facility] from [facility] REVIEW OF SYSTEMS: No fever, chills, or sweats. Normal appetite and weight. No NOVA, visual disturbance, eye pain, jaundice, sore throat or mouth ulcers. No skin rash or itching. No CP, SOB, SPIVEY, cough or wheeze. No urinary frequency, urgency, hematuria, or dysuria. No myalgia, arthralgia, or joint swelling. No weakness, numbness, or confusion. GI per HPI. No polyuria, polydipsia, heat or cold intolerance. PHYSICAL EXAM: VS: BP 116/70 (BP Location: Right arm, Patient Position: Lying) Pulse 89 Temp 36.1 C (97 F) (Temporal) Resp 14 Ht 5' 8 (1.727 m) Wt 200 lb 3.2 oz (90.8 kg) SpO2 90% BMI 30.44 kg/m Body mass index is 30.44 kg/m . GENERAL: Pleasant and NAD. HEENT: NCAT, PERRLA, EOMI, Scleral anicteric. CV: RRR, NL S1/S2, no murmurs. LUNGS: CTA b/l. No W/R/R. Abdomen: + BS, soft, non-tender and non-distended. No rebound or guarding. Neurologic: A&O x 2, Non-focal. LABS AND IMAGING: Recent blood work and relevant radiologic and endoscopic studies were reviewed and discussed with the patient. Old records have not been requested. CBC: Recent Labs 08/19/23 0233 08/20/23 0038 08/20/23 0751 WBC 7.4 5.4 -- HGB 12.4* 11.1* 11.6* HCT 35.8* 32.7* 33.6* PLT 167 153 -- HEPATIC: Recent Labs 08/19/23232 AST 76* ALT 55* BILITOT 0.6 ALKPHOS 86 LIPASE/AMYLASE: Recent Labs 08/19/23232 LIPASE 31 LACTATE: No lab exists for component: LACTA BNP: No results for input(s): BNP in the last 72 hours. INR: Recent Labs 08/19/23232 INR 1.0 Vascular US lower extremity venous duplex bilateral Result Date: 08/20/2023 No evidence of deep vein or superficial vein thrombosis in the right lower extremity. Vessels demonstrate normal compressibility, color filling, and phasic and spontaneous flow. No evidence of deep vein or superficial vein thrombosis in the left lower extremity. Vessels demonstrate normal compressibility, color filling, and phasic and spontaneous flow. POCT glucose meter Result Date: 08/19/2023 Performed by: [facility], [address] [place] [address] CLIA ID: [id number] [facility] SPECIFIC POCUS ORDER Result Date: 08/19/2023 James Maravilla MD 08/19/2023 3:[facility] Performed by: James Maravilla MD Authorized by: James Maravilla MD Type of Exam: DVT Indications for Ultrasound: Right leg pain Credentialed Provider Attestation: Are you an Ultrasound Credentialed Provider?: Yes Does PoC US immage meet quality guidelines?: Adequate Is PoC US Chargeable?: $Charge$ Signed: James Maravilla Procedure details: Indications: Lower extremity pain Assessment for: DVT Findings: Right common femoral vein: Compressible Right deep and superficial femoral veins: Compressible Right popliteal vein: Compressible Impression: DVT: None IMPRESSION: Coffee ground emesis with melena - slight drop in Hgb, on Eliquis for DVT; need to r/o gastritis vs PUD DVT on Eliquis - last dose 08/18? Anoxic brain injury EtOH abuse - no recent EtOH use, previous dilations for esophageal stricture, will have random bouts of vomiting RECOMMENDATIONS: Keep patient NPO Will plan on EGD today (spoke with sister Karo for consent) Monitor Hgb and transfuse as necessary Continue PPI Continue to hold Eliquis The benefits, alternatives, and risks of the procedure(s) including (but not exclusive to) pain, sore throat, bleeding, perforation, infection, nausea, vomiting, aspiration, hypoxia/hypotension/allergic reaction(s) due to sedatives, phlebitis, need for hospitalization, need for transfusions, need for antibiotic therapy, need for surgery, and likelihood of missing a lesion, were explained to the patient/guardian/responsible accompanying adult who is agreeable. documented in this encounter [facility] 08-20-2023 Note Formatting of this n ote might be different from the original. [facility] Name: Kari Allan Procedure Date: 08/20/2023 10:48 AM Gender: Male Date of : 1970 Age: 52 Admit Type: Inpatient Note Status: Finalized Endoscopist: Galileo Forrester MD, [id number] Procedure: Upper GI endoscopy Indications: Coffee-ground emesis Findings: The examined duodenum was normal. Localized mild inflammation characterized by erythema was found in the gastric antrum. There was evidence of a closed previous gastrostomy present in the gastric body. This was characterized by healthy appearing mucosa. One benign-appearing, intrinsic moderate (circumferential scarring or stenosis; an endoscope may pass) stenosis was found in the lower third of the esophagus. This stenosis measured 1 cm (inner diameter). The stenosis was traversed. LA Grade B (one or more mucosal breaks greater than 5 mm, not extending between the tops of two mucosal folds) esophagitis with no bleeding was found at the gastroesophageal junction. Impression: - Normal examined duodenum. - Gastritis. - Closed previous gastrostomy present characterized by healthy appearing mucosa. - Benign-appearing esophageal stenosis. - LA Grade B esophagitis with no bleeding. - No specimens collected. Recommendation: - Resume previous diet. - Continue present medications. - Continue to monitor Hgb closely and signs of additional bleeding. Referring MD: Antonella Marrero MD Medicines: Monitored Anesthesia Care, See the Anesthesia note for documentation of the administered medications Procedure: Pre-Anesthesia Assessment: - Prior to the procedure, a History and Physical was performed, and patient medications and allergies were reviewed. The patient's tolerance of previous anesthesia was also reviewed. The risks and benefits of the procedure and the sedation options and risks were discussed with the patient. All questions were answered, and informed consent was obtained. Prior Anticoagulants: The patient last took Eliquis (apixaban) 1 day prior to the procedure. ASA Grade Assessment: III - A patient with severe systemic disease. After reviewing the risks and benefits, the patient was deemed in satisfactory condition to undergo the procedure. After obtaining informed consent, the endoscope was passed under direct vision. Throughout the procedure, the patient's blood pressure, pulse, and oxygen saturations were monitored continuously. The Endoscope was introduced through the mouth, and advanced to the second part of duodenum. The upper GI endoscopy was accomplished without difficulty. The patient tolerated the procedure well. Complications: No immediate complications. Procedure Code(s): --- Professional --- 39593, Esophagogastroduodenoscopy, flexible, transoral; diagnostic, including collection of specimen(s) by brushing or washing, when performed (separate procedure) --- Technical --- 42314, Esophagogastroduodenoscopy, flexible, transoral; diagnostic, including collection of specimen(s) by brushing or washing, when performed (separate procedure) Diagnosis Code(s): --- Professional --- K29.70, Gastritis, unspecified, without bleeding Z98.890, Other specified postprocedural states K22.2, Esophageal obstruction K20.90, Esophagitis, unspecified without bleeding K92.0, Hematemesis --- Technical --- K29.70, Gastritis, unspecified, without bleeding Z98.890, Other specified postprocedural states K22.2, Esophageal obstruction K20.90, Esophagitis, unspecified without bleeding K92.0, Hematemesis CPT copyright 2021 [employer]. All rights reserved. The codes documented in this report are preliminary and upon account consultant review may be revised to meet current compliance requirements. Attending Participation: I personally performed the entire procedure. Galileo Forrester MD 08/20/2023 12:04:33 PM This report has been signed electronically. Number of Addenda: 0 Note Initiated On: 08/20/2023 10:48 AM [facility] 08-20-2023 Note Formatting of this n ote might be different from the original. [facility] Name: Kari Allan Procedure Date: 08/20/2023 10:48 AM Gender: Male Date of : 1970 Age: 52 Admit Type: Inpatient Note Status: Finalized Endoscopist: Galileo Forrester MD, [id number] Procedure: Upper GI endoscopy Indications: Coffee-ground emesis Findings: The examined duodenum was normal. Localized mild inflammation characterized by erythema was found in the gastric antrum. There was evidence of a closed previous gastrostomy present in the gastric body. This was characterized by healthy appearing mucosa. One benign-appearing, intrinsic moderate (circumferential scarring or stenosis; an endoscope may pass) stenosis was found in the lower third of the esophagus. This stenosis measured 1 cm (inner diameter). The stenosis was traversed. LA Grade B (one or more mucosal breaks greater than 5 mm, not extending between the tops of two mucosal folds) esophagitis with no bleeding was found at the gastroesophageal junction. Impression: - Normal examined duodenum. - Gastritis. - Closed previous gastrostomy present characterized by healthy appearing mucosa. - Benign-appearing esophageal stenosis. - LA Grade B esophagitis with no bleeding. - No specimens collected. Recommendation: - Resume previous diet. - Continue present medications. - Continue to monitor Hgb closely and signs of additional bleeding. Referring MD: Antoenlla Marrero MD Medicines: Monitored Anesthesia Care, See the Anesthesia note for documentation of the administered medications Procedure: Pre-Anesthesia Assessment: - Prior to the procedure, a History and Physical was performed, and patient medications and allergies were reviewed. The patient's tolerance of previous anesthesia was also reviewed. The risks and benefits of the procedure and the sedation options and risks were discussed with the patient. All questions were answered, and informed consent was obtained. Prior Anticoagulants: The patient last took Eliquis (apixaban) 1 day prior to the procedure. ASA Grade Assessment: III - A patient with severe systemic disease. After reviewing the risks and benefits, the patient was deemed in satisfactory condition to undergo the procedure. After obtaining informed consent, the endoscope was passed under direct vision. Throughout the procedure, the patient's blood pressure, pulse, and oxygen saturations were monitored continuously. The Endoscope was introduced through the mouth, and advanced to the second part of duodenum. The upper GI endoscopy was accomplished without difficulty. The patient tolerated the procedure well. Complications: No immediate complications. Procedure Code(s): --- Professional --- 01603, Esophagogastroduodenoscopy, flexible, transoral; diagnostic, including collection of specimen(s) by brushing or washing, when performed (separate procedure) --- Technical --- 83317, Esophagogastroduodenoscopy, flexible, transoral; diagnostic, including collection of specimen(s) by brushing or washing, when performed (separate procedure) Diagnosis Code(s): --- Professional --- K29.70, Gastritis, unspecified, without bleeding Z98.890, Other specified postprocedural states K22.2, Esophageal obstruction K20.90, Esophagitis, unspecified without bleeding K92.0, Hematemesis --- Technical --- K29.70, Gastritis, unspecified, without bleeding Z98.890, Other specified postprocedural states K22.2, Esophageal obstruction K20.90, Esophagitis, unspecified without bleeding K92.0, Hematemesis CPT copyright 202 [employer]. All rights reserved. The codes documented in this report are preliminary and upon account consultant review may be revised to meet current compliance requirements. Attending Participation: I personally performed the entire procedure. Galileo Forrester MD 08/20/2023 12:04:33 PM This report has been signed electronically. Number of Addenda: 0 Note Initiated On: 08/20/2023 10:48 AM [facility] 08-20-2023 Note Endoscopy Center- [facility] Patient Name: Kari Allan Procedure Date: 08/20/2023 10:48 AM Gender: Male Date of : 1970 Age: 52 Admit Type: Inpatient Note Status: Finalized Endoscopist: Galileo Forrester MD, [id number] Procedure: Upper GI endoscopy Indications: Coffee-ground emesis Findings: The examined duodenum was normal. Localized mild inflammation characterized by erythema was found in the gastric antrum. There was evidence of a closed previous gastrostomy present in the gastric body. This was characterized by healthy appearing mucosa. One benign-appearing, intrinsic moderate (circumferential scarring or stenosis; an endoscope may pass) stenosis was found in the lower third of the esophagus. This stenosis measured 1 cm (inner diameter). The stenosis was traversed. LA Grade B (one or more mucosal breaks greater than 5 mm, not extending between the tops of two mucosal folds) esophagitis with no bleeding was found at the gastroesophageal junction. Impression: - Normal examined duodenum. - Gastritis. - Closed previous gastrostomy present characterized by healthy appearing mucosa. - Benign-appearing esophageal stenosis. - LA Grade B esophagitis with no bleeding. - No specimens collected. Recommendation: - Resume previous diet. - Continue present medications. - Continue to monitor Hgb closely and signs of additional bleeding. Referring MD: Antonella Marrero MD Medicines: Monitored Anesthesia Care, See the Anesthesia note for documentation of the administered medications Procedure: Pre-Anesthesia Assessment: - Prior to the procedure, a History and Physical was performed, and patient medications and allergies were reviewed. The patient's tolerance of previous anesthesia was also reviewed. The risks and benefits of the procedure and the sedation options and risks were discussed with the patient. All questions were answered, and informed consent was obtained. Prior Anticoagulants: The patient last took Eliquis (apixaban) 1 day prior to the procedure. ASA Grade Assessment: III - A patient with severe systemic disease. After reviewing the risks and benefits, the patient was deemed in satisfactory condition to undergo the procedure. After obtaining informed consent, the endoscope was passed under direct vision. Throughout the procedure, the patient's blood pressure, pulse, and oxygen saturations were monitored continuously. The Endoscope was introduced through the mouth, and advanced to the second part of duodenum. The upper GI endoscopy was accomplished without difficulty. The patient tolerated the procedure well. Complications: No immediate complications. Procedure Code(s): --- Professional --- 47924, Esophagogastroduodenoscopy, flexible, transoral; diagnostic, including collection of specimen(s) by brushing or washing, when performed (separate procedure) --- Technical --- 54405, Esophagogastroduodenoscopy, flexible, transoral; diagnostic, including collection of specimen(s) by brushing or washing, when performed (separate procedure) Diagnosis Code(s): --- Professional --- K29.70, Gastritis, unspecified, without bleeding Z98.890, Other specified postprocedural states K22.2, Esophageal obstruction K20.90, Esophagitis, unspecified without bleeding K92.0, Hematemesis --- Technical --- K29.70, Gastritis, unspecified, without bleeding Z98.890, Other specified postprocedural states K22.2, Esophageal obstruction K20.90, Esophagitis, unspecified without bleeding K92.0, Hematemesis CPT copyright 2021 [employer]. All rights reserved. The codes documented in this report are preliminary and upon account consultant review may be revised to meet current compliance requirements. Attending Participation: I personally performed the entire procedure. Galileo Forrester MD 08/20/2023 12:04:33 PM This report has been signed electronically. Number of Addenda: 0 Note Initiated On: 08/20/2023 10:48 AM [facility] 08-19-2023 Plan of care note The patient is Moderately Stable - Low risk of patient condition declining or worsening The patient's goals for the shift include rest The clinical goals for the shift include orientation to new surroundings Over the shift, the patient did not make progress toward the following goals. Barriers to progression include continued c/o pain to right calf. Recommendations to address these barriers include monitor.. Problem: Pain - Adult Goal: Verbalizes/displays adequate comfort level or baseline comfort level Outcome: Not Progressing Problem: Discharge Planning Goal: Discharge to home or other facility with appropriate resources Outcome: Not Progressing [facility] 08-19-2023 Note Attempted lower dupl ex at about 4 pm. Nurse said patient was in the restroom not well. Will try again tomorrow. [facility] 08-19-2023 Procedure note Attempted lower duplex at about 4 pm. Nurse said patient was in the restroom not well. Will try again tomorrow. [facility] 08-19-2023 Procedure note Attempted lower duplex at about 4 pm. Nurse said patient was in the restroom not well. Will try again tomorrow. documented in this encounter [facility] 08-19-2023 Note Formatting of this n ote might be different from the original. Called to bedside to assess pt r/t pt's weakened gait. Upon assessment VS stable, A+Ox1 pt complains of pain in abd and right leg. Lungs clear VICKY, No strength or sensation deficits. Pt has mild tremor BUE. Pt is poor historian. Reviewed med list and spoke with Za CONTRERAS. Pt to remain at current level of care. [facility] 08-19-2023 Note Formatting of this n ote might be different from the original. Called to bedside to assess pt r/t pt's weakened gait. Upon assessment VS stable, A+Ox1 pt complains of pain in abd and right leg. Lungs clear VICKY, No strength or sensation deficits. Pt has mild tremor BUE. Pt is poor historian. Reviewed med list and spoke with Za CONTRERAS. Pt to remain at current level of care. [facility] 08-19-2023 Note Formatting of this n ote might be different from the original. Referral placed to return back to [facility] via [facility] per TCC request. Await review and response regarding ability to accept. TCC notified. [facility] 08-19-2023 Note Formatting of this n ote might be different from the original. Referral placed to return back to [facility] via [facility] per TCC request. Await review and response regarding ability to accept. TCC notified. [facility] 08-19-2023 Note Referral placed to r eturn back to [facility] via [facility] per TCC request. Await review and response regarding ability to accept. TCC notified. [facility] 08-19-2023 Note Formatting of this n ote might be different from the original. Care Managment Initial Assessment Date: 08/19/2023 Patient Name: Kari Allan : 1970 Patient Information Source of Information: Patient Cognition/Language: WFL - Within Functional Limits Permission given to speak with patient metals sales representative/caregiver as indicated: Yes (Karo Sanford (Sister) [phone]) Confirmation of Payer with patient/family: Yes Payer Name: [place] Medicaid : No Confirmation of Primary Care Physician: Confirmed PCP Name: Antonella marrero Seen in last 2 years?: Yes Primary Caregiver: Other (Comment) ([facility]) If assistance needed, confirmed caregiver ready, willing and able to care for patient at discharge: Confirmed with: Living Arrangements Current Residence: Number of Floors Number of Entry Steps: Bed/Bath Levels: Facility: [facility] Facility Name: [facility] Plan to Return: Yes Lives with: Support Systems: Family members Activities of Daily Living Ambulation: Independent Bathing/Dressing: Assistance Elimination/Continence/Toileting: Independent Feeding: Independent Who Assists with Activities of Daily Living: ECF staff Instrumental Activities of Daily Living Prescription Coverage: Yes Pharmacy Used: [facility] [place] uses Medication Management: Assistance Type: Dose packaging system Who assists with medication securing and setup?: ECF staff Transportation/Shopping: Assistance Provider Transportation/Shopping Assistance Provider Name: [facility] family Transportation Mode: Car, Senior/disability transport service Needs Assistance with Transportation at Discharge: No (SW will arrange transportation back to [facility]) Meal Preparation: Assistance Provider Meal Prep Assistance Provider Name: [facility] staff Laundry/Cleaning: Assistance Provider Laundry/Cleaning Assistance Provider Name: EC staff Finances/Bill Paying: Assistance Provider Finances/Bill Payer Assistance Provider Name: EC staff Communication: Independent Types of Care Services/Equipment Utilized Care Services: Dialysis Type: NA Durable Medical Equipment: Other (Comment) (patient states none) Patient's Goal/Discharge Plan Patient expects to be discharged to: [facility] Discharge Planning Actions: Continue to follow Patient's Choice Rights and [employer] and Collaborative Relationships Disclosed as Indicated for Post-Acute Care: Interdisciplinary Team Engagement: Social Work Referral for: Additional Information: Spoke with patient at bedside. Introduced self and role. Discharge planning needs discussed. Patient in hospital due to upper GI bleed. Was having abdominal pine, coffee ground emesis an dark stools so was sent to ED. Occult stool was positive. Has some abnormal labs. GI consulted. Lives at [facility]. Task sent to [facility] via [facility] to place return referral to above facility. Patient will return when medically stable. TCC will continue to follow. Neyda Sifuentes RN [facility] 08-19-2023 Note Formatting of this n ote might be different from the original. Care Managment Initial Assessment Date: 08/19/2023 Patient Name: Kari Allan : 1970 Patient Information Source of Information: Patient Cognition/Language: WFL - Within Functional Limits Permission given to speak with patient metals sales representative/caregiver as indicated: Yes (Karo Sanford (Sister) [phone]) Confirmation of Payer with patient/family: Yes Payer Name: [place] : No Confirmation of Primary Care Physician: Confirmed PCP Name: Antonella marrero Seen in last 2 years?: Yes Primary Caregiver: Other (Comment) ([facility]) If assistance needed, confirmed caregiver ready, willing and able to care for patient at discharge: Confirmed with: Living Arrangements Current Residence: Number of Floors Number of Entry Steps: Bed/Bath Levels: Facility: [facility] Facility Name: [facility] Plan to Return: Yes Lives with: Support Systems: Family members Activities of Daily Living Ambulation: Independent Bathing/Dressing: Assistance Elimination/Continence/Toileting: Independent Feeding: Independent Who Assists with Activities of Daily Living: [facility] staff Instrumental Activities of Daily Living Prescription Coverage: Yes Pharmacy Used: [facility] [place] uses Medication Management: Assistance Type: Dose packaging system Who assists with medication securing and setup?: [facility] staff Transportation/Shopping: Assistance Provider Transportation/Shopping Assistance Provider Name: [facility] family Transportation Mode: Car, Senior/disability transport service Needs Assistance with Transportation at Discharge: No ( will arrange transportation back to [facility]) Meal Preparation: Assistance Provider Meal Prep Assistance Provider Name: [facility] staff Laundry/Cleaning: Assistance Provider Laundry/Cleaning Assistance Provider Name: [facility] staff Finances/Bill Paying: Assistance Provider Finances/Bill Payer Assistance Provider Name: [facility] staff Communication: Independent Types of Care Services/Equipment Utilized Care Services: Dialysis Type: NA Durable Medical Equipment: Other (Comment) (patient states none) Patient's Goal/Discharge Plan Patient expects to be discharged to: [facility] Discharge Planning Actions: Continue to follow Patient's Choice Rights and [employer] and Collaborative Relationships Disclosed as Indicated for Post-Acute Care: Interdisciplinary Team Engagement: Social Work Referral for: Additional Information: Spoke with patient at bedside. Introduced self and role. Discharge planning needs discussed. Patient in hospital due to upper GI bleed. Was having abdominal pine, coffee ground emesis an dark stools so was sent to ED. Occult stool was positive. Has some abnormal labs. GI consulted. Lives at [facility]. Task sent to [facility] via [facility] to place return referral to above facility. Patient will return when medically stable. TCC will continue to follow. Neyda Sifuentes RN [facility] 08-19-2023 Note Formatting of this n ote is different from the original. Images from the original note were not included. ADVANCED CARE PLANNING Kari Parnell Lyndsey : 1970 Primary Care Physician: Antonella Marrero The patient and/or family/surrogate voluntarily agreed to participate in ACP services. Patient s cognitive capacity: poor, does NOT know place ([facility]), cannot tell me year. Able to answer simple questions. Code Status: [_] [FULL CODE - Continue all advanced life support: CPR,intubation,invasive procedures] [X] [DNR-CCA - DO NOT do CPR, no intubation] [_] [DNR-CHASSIS ENGINEER - Comfort care only] [_] DNR form [was/was not] signed Summary of discussion: The patient court appointed legal Guardian is the following: Karo (sister). [Condition that instigated the ACP on this DOS, relevant PMH, functional status, goals of care, and whom this was discussed with including names and relationship to the patient, and any relevant advance care documentation discussion] I answered all the patient/family questions that I could within the range and scope of the current medical situation. We discussed the medical conditions, risks, benefits, outcomes, and goals of care at this time for the patient's medical issues at hand in the face of the patient's chronic issues and current presentation. Total time spent: 6 minutes were spent discussing the patient's resuscitation status, advance care planning, and end of life care, with patient and/or family/surrogate. CHANTELLE DEAN MD [facility] 08/19/2023, 1:21 PM [facility] 08-19-2023 Note Formatting of this n ote is different from the original. Images from the original note were not included. ADVANCED CARE PLANNING Kari Parmjit Lyndsey : 1970 Primary Care Physician: Antonella Marrero The patient and/or family/surrogate voluntarily agreed to participate in ACP services. Patient s cognitive capacity: poor, does NOT know place ([facility]), cannot tell me year. Able to answer simple questions. Code Status: [_] [FULL CODE - Continue all advanced life support: CPR,intubation,invasive procedures] [X] [DNR-CCA - DO NOT do CPR, no intubation] [_] [DNR-CHASSIS ENGINEER - Comfort care only] [_] DNR form [was/was not] signed Summary of discussion: The patient court appointed legal Guardian is the following: Karo (sister). [Condition that instigated the ACP on this DOS, relevant PMH, functional status, goals of care, and whom this was discussed with including names and relationship to the patient, and any relevant advance care documentation discussion] I answered all the patient/family questions that I could within the range and scope of the current medical situation. We discussed the medical conditions, risks, benefits, outcomes, and goals of care at this time for the patient's medical issues at hand in the face of the patient's chronic issues and current presentation. Total time spent: 6 minutes were spent discussing the patient's resuscitation status, advance care planning, and end of life care, with patient and/or family/surrogate. CHANTELLE DEAN MD [facility] 08/19/2023, 1:21 PM [facility] 08-19-2023 History and physical note Images from the original note were not included. Attending History and Physical Admit Date: 08/19/2023 PCP: Antonella Marrero CHIEF COMPLAINT: Abdominal pain History Obtained From: ER/Records/Sister Karo HISTORY OF PRESENT ILLNESS: Kari is a 52 y.o. male who presents to the emergency department with a chief complaint of abdominal pain and right leg pain with reported coffee-ground emesis and dark stools. Patient brought in by EMS. Patient currently lives at [facility]. History of alcohol abuse with anoxic brain injury. Patient is on Eliquis for an history of embolism. Denies any chest pain or shortness of breath. Denies lower back pain. Denies fever or chills. Patient was evaluated at [facility] emergency department for right hip pain and abdominal pain 3 days ago. Patient had a right hip x-ray with no acute fracture or dislocation with degenerative changes. CT abdomen reportedly was negative for acute abdominal pelvic process. Patient has hepatic steatosis. Reported fluid in the distal esophagus. Patient was evaluated at [facility] 2 days ago for abdominal pain and dark emesis. Patient had a CT abdomen and pelvis performed at that time that was negative for acute intra-abdominal or pelvic process. Patient reportedly has a fatty liver and a small hiatal hernia. Patient is on pantoprazole. Spoke with sister Karo over the phone. She states they saw black stool on his wheelchair and this is new. They though is was back rubber something. Also she states she is court appointed legal guardian and is primary decision maker. She states he is DNR CCA, no intubation but okay for ICU (states she was told that if he were to go into cardiac arrest again with his history of brain anoxia, he would be a vegetable. Past Medical History: Past Medical History: Diagnosis Date Alcohol abuse with intoxication (HCC) Anemia Anoxic brain damage (CMS/HCC) (HCC) Anxiety Asthma Convulsion (HCC) COPD (chronic obstructive pulmonary disease) (HCC) Depression DVT (deep venous thrombosis) (HCC) Dysphagia Encephalopathy GERD (gastroesophageal reflux disease) Hepatitis Hypertension Impulse control disorder Insomnia, unspecified Need for assistance with personal care Opioid abuse (HCC) Other symbolic dysfunctions Pancreatitis Psychosis (HCC) PTSD (post-traumatic stress disorder) Solitary lung nodule Past Surgical History: Past Surgical History: Procedure Laterality Date APPENDECTOMY BACK SURGERY 5 vertabrae fused CHOLECYSTECTOMY COLONOSCOPY 2014 CT CHEST ANGIOGRAM W AND/OR WO IV CONTRAST 04/08/2022 CT CHEST ANGIOGRAM W AND/OR WO IV CONTRAST 04/08/[address] IMAGING CYST REMOVAL wrist GASTROSTOMY TUBE PLACEMENT 03/01/2017 UPPER GASTROINTESTINAL ENDOSCOPY 02/16/2017 Family History: Family History Problem Relation Name Age of Onset Diabetes Mother Diabetes Brother Medications Prior to Admission: No current facility-administered medications on file prior to encounter. Current Outpatient Medications on File Prior to Encounter Medication Sig Dispense Refill acetaminophen (Tylenol) 325 MG tablet Take 2 tablets by mouth every 6 hours as needed for fever, mild pain (1-3) or moderate pain (4-6). Albuterol Sulfate 108 (90 Base) MCG/ACT aerosol powder Inhale 1 puff every 2 hours as needed. apixaban (Eliquis) 5 MG tablet Take 5 mg by mouth in the morning and 5 mg before bedtime. baclofen (Lioresal) 10 MG tablet Take 10 mg by mouth 3 times daily. bisacodyl (Dulcolax) 10 MG suppository Insert 10 mg into the rectum Daily as needed for constipation. bisacodyl (Dulcolax) 5 MG EC tablet Take 5 mg by mouth Daily as needed. divalproex sprinkle (Depakote Sprinkle) [address] capsule Take 500 mg by mouth 3 times daily. escitalopram (Lexapro) 10 MG tablet Take 1.5 tablets by mouth daily. folic acid (Folvite) 1 MG tablet daily. guaiFENesin (Humibid 3) 400 MG tablet Take 400 mg by mouth every 8 hours as needed for congestion. ipratropium-albuterol (Duo-Neb) 0.5-2.5 mg/3 mL nebulizer solution Inhale 3 mL every 6 hours as needed. levETIRAcetam (Keppra) 750 MG tablet Take 1 tablet by mouth in the morning and 1 tablet before bedtime. magnesium hydroxide (Milk of Magnesia) 400 MG/5ML suspension Take 30 mL by mouth Daily as needed. melatonin 3 MG tablet 3 mg Nightly as needed. Menthol, Topical Analgesic, (Biofreeze Roll-On) 4 % gel Apply topically every 8 hours as needed. naltrexone (Depade) 50 MG tablet Take 50 mg by mouth in the morning. Nirmatrelvir&Ritonavir 300/100 (Paxlovid, 300/100,) 20 x 150 MG & 10 x 100MG tablet therapy pack Take 3 tablets by mouth in the morning and 3 tablets in the evening. 30 tablet 0 pantoprazole (ProtoNix) 40 MG EC tablet 40 mg 2 times daily. polyethylene glycol, PEG, 3350 (Glycolax) 17 GM/SCOOP powder Take 17 g by mouth daily. promethazine (Phenergan) 25 MG tablet Take 1 tablet (25 mg) by mouth every 6 hours as needed for nausea or vomiting for up to 7 days. 20 tablet 0 pyridoxine (Vitamin B-6) 25 MG tablet 25 mg daily. QUEtiapine (SEROquel) 200 MG tablet 200 mg 2 times daily. thiamine (Vitamin B-1) 100 MG tablet 100 mg daily. Throat Lozenges (Cough Drops Menthol) lozenge Dissolve 1 lozenge in the mouth Once as needed. traMADol (Ultram) 50 MG tablet Allergies: Haloperidol and Paregoric Social History: Social History Socioeconomic History Marital status: Single Spouse name: Not on file Number of children: Not on file Years of education: Not on file Highest education level: Not on file Occupational History Not on file Tobacco Use Smoking status: Some Days Packs/day: 2.00 Years: 40.00 Additional pack years: 0.00 Total pack years: 80.00 Types: Cigarettes Smokeless tobacco: Never Vaping Use Vaping Use: Never used Substance and Sexual Activity Alcohol use: Yes Drug use: Not Currently Sexual activity: Not Currently Other Topics Concern Not on file Social History Narrative Not on file Social Determinants of Health Financial Resource Strain: Patient Declined (08/19/2023) Overall Financial Resource Strain (CARDIA) Difficulty of Paying Living Expenses: Patient declined Food Insecurity: No Food Insecurity (08/19/2023) Hunger Vital Sign Worried About Running Out of Food in the Last Year: Never true Ran Out of Food in the Last Year: Never true Transportation Needs: No Transportation Needs (08/19/2023) PRAPARE - Transportation Lack of Transportation (Medical): No Lack of Transportation (Non-Medical): No Physical Activity: Unknown (08/19/2023) Exercise Vital Sign Days of Exercise per Week: 0 days Minutes of Exercise per Session: Not on file Stress: No Stress Concern Present (08/19/2023) [employer] - Occupational Stress Questionnaire Feeling of Stress : Not at all Social Connections: Socially Isolated (08/19/2023) Social Connection and Isolation Panel [NHANES] Frequency of Communication with Friends and Family: Never Frequency of Social Gatherings with Friends and Family: Never Attends Protestant Services: Never Active Member of Clubs or Organizations: No Attends Club or Organization Meetings: Never Marital Status: Intimate Partner Violence: Not At Risk (08/19/2023) Humiliation, Afraid, Rape, and Kick questionnaire Fear of Current or Ex-Partner: No Emotionally Abused: No Physically Abused: No Sexually Abused: No Housing Stability: Low Risk (08/19/2023) Housing Stability Vital Sign Unable to Pay for Housing in the Last Year: No Number of Places Lived in the Last Year: 2 Unstable Housing in the Last Year: No REVIEW OF SYSTEMS: Other than patient's chronic conditions and those complaints in the history above, the rest of the 10 systems review were done and were negative. Vitals: BP 125/86 Pulse 83 Temp 36.1 C (97 F) (Temporal) Resp 18 SpO2 93% BMI Classification: Normal Weight (BMI 18.5-24.9) Pulse Ox: SpO2 Av.7 % Min: 93 % Max: 96 % Supplemental O2: PHYSICAL EXAM: General appearance: No apparent distress, appears stated age and cooperative with exam. HEENT: Eyes: No scleral icterus Oral: Tongue is semi-moist Cardiovascular: S1/S2 heard, RRR Respiratory: Clear to auscultation bilaterally Abdomen: Soft, non-tender, non-distended bowel sounds positive Musculoskeletal: No obvious deformities seen Skin: No visible rashes or lesions. DATA: CBC: Recent Labs 08/19/23 0233 WBC 7.4 RBC 4.05* HGB 12.4* HCT 35.8* MCV 88.4 RDW 13.2 PLT 167 BMP: Recent Labs 08/19/23 0233 NA 132* K 3.5 CL 94* CO2 31* BUN 13 CREATININE 1.00 GLUCOSE 100 CALCIUM 9.0 ANIONGAP 7 LIVER PROFILE: Recent Labs 08/19/233 AST 76* ALT 55* BILITOT 0.6 ALKPHOS 86 PROT 7.0 PT/INR: Recent Labs 08/19/23 0233 PROTIME 10.4 INR 1.0 CARDIAC ENZYMES: No results for input(s): TROPONINI in the last 72 hours. Procalcitonin: No results found for: PROCAL Urine Culture: No results found for this or any previous visit. COVID-19 PCR: No results for input(s): COVID19 in the last 72 hours. I reviewed: [x] laboratory results [x] radiographic results At the time of today's encounter. Pt was advised of the results. IMPRESSION: # GI bleed - reported recurrent dark coffee ground emesis (recently at [facility] 2 days ago for same and [facility]) # Abdominal pain (gastritis? Ulcer?) # History of alcohol abuse with anoxic brain injury. # Patient is on Eliquis for an history of DVT # COPD/Asthma without exacerbation # Chronic HTN # Hx of anxiety/depression/psychosis/PTSD # Hx of solitary lung nodule # Hx of opioid abuse # Hx of GERD # Code status: Karo his sister states she is court appointed legal guardian and is primary decision maker. She states he is DNR CCA, no intubation but okay for ICU (states she was told before that if he were to go into cardiac arrest again with his history of brain anoxia, he would be a vegetable. PLAN: Protonix bid and consult to GI, hold eliquis and any other blood thinners, H/H q8, check stool for occult blood, resume other meds from SNF, NPO for now, IVF, vitals per routine, up with assist, SCDs for dvt proph, check daily labs, please see the rest of the orders for plan of care. Spoke with sister karo over phone. -PT/OT eval/increase activity -am labs, replace lytes prn -vitals per routine -home meds as ordered -DVT prophylaxis: [] Lovenox [] Heparin [] SCDs [x] Encourage ambulation [] Already on Anticoagulation -see below for additional orders, further recommendations to follow Orders Placed This Encounter Procedures Occult blood x 1, stool [facility] SPECIFIC POCUS ORDER Basic metabolic panel Hepatic function panel Lipase CBC auto differential Protime-INR Vital Signs Insert peripheral IV Admit to inpatient Code status: Prior Please forward a copy of this H&P to the patient's PCP. Thank you. Electronically signed by @MEMDNR@ on @TDNR@ at @NOWNR@ [facility] 08-19-2023 Note Attending History an d Physical Admit Date: 08/19/2023 PCP: Antonella Marrero CHIEF COMPLAINT: Abdominal pain History Obtained From: ER/Records/Sister Karo HISTORY OF PRESENT ILLNESS: Kari is a 52 y.o. male who presents to the emergency department with a chief complaint of abdominal pain and right leg pain with reported coffee-ground emesis and dark stools. Patient brought in by EMS. Patient currently lives at [facility]. History of alcohol abuse with anoxic brain injury. Patient is on Eliquis for an history of embolism. Denies any chest pain or shortness of breath. Denies lower back pain. Denies fever or chills. Patient was evaluated at [facility] emergency department for right hip pain and abdominal pain 3 days ago. Patient had a right hip x-ray with no acute fracture or dislocation with degenerative changes. CT abdomen reportedly was negative for acute abdominal pelvic process. Patient has hepatic steatosis. Reported fluid in the distal esophagus. Patient was evaluated at [facility] 2 days ago for abdominal pain and dark emesis. Patient had a CT abdomen and pelvis performed at that time that was negative for acute intra-abdominal or pelvic process. Patient reportedly has a fatty liver and a small hiatal hernia. Patient is on pantoprazole. Spoke with sister Karo over the phone. She states they saw black stool on his wheelchair and this is new. They though is was back rubber something. Also she states she is court appointed legal guardian and is primary decision maker. She states he is DNR CCA, no intubation but okay for ICU (states she was told that if he were to go into cardiac arrest again with his history of brain anoxia, he would be a vegetable. Past Medical History: Past Medical History: Diagnosis Date Alcohol abuse with intoxication (HCC) Anemia Anoxic brain damage (CMS/HCC) (HCC) Anxiety Asthma Convulsion (HCC) COPD (chronic obstructive pulmonary disease) (HCC) Depression DVT (deep venous thrombosis) (HCC) Dysphagia Encephalopathy GERD (gastroesophageal reflux disease) Hepatitis Hypertension Impulse control disorder Insomnia, unspecified Need for assistance with personal care Opioid abuse (HCC) Other symbolic dysfunctions Pancreatitis Psychosis (HCC) PTSD (post-traumatic stress disorder) Solitary lung nodule Past Surgical History: Past Surgical History: Procedure Laterality Date APPENDECTOMY BACK SURGERY 5 vertabrae fused CHOLECYSTECTOMY COLONOSCOPY 2014 CT CHEST ANGIOGRAM W AND/OR WO IV CONTRAST 04/08/2022 CT CHEST ANGIOGRAM W AND/OR WO IV CONTRAST 04/08/[address]22 [facility] IMAGING CYST REMOVAL wrist GASTROSTOMY TUBE PLACEMENT 03/01/2017 UPPER GASTROINTESTINAL ENDOSCOPY 02/16/2017 Family History: Family History Problem Relation Name Age of Onset Diabetes Mother Diabetes Brother Medications Prior to Admission: No current facility-administered medications on file prior to encounter. Current Outpatient Medications on File Prior to Encounter Medication Sig Dispense Refill acetaminophen (Tylenol) 325 MG tablet Take 2 tablets by mouth every 6 hours as needed for fever, mild pain (1-3) or moderate pain (4-6). Albuterol Sulfate 108 (90 Base) MCG/ACT aerosol powder Inhale 1 puff every 2 hours as needed. apixaban (Eliquis) 5 MG tablet Take 5 mg by mouth in the morning and 5 mg before bedtime. baclofen (Lioresal) 10 MG tablet Take 10 mg by mouth 3 times daily. bisacodyl (Dulcolax) 10 MG suppository Insert 10 mg into the rectum Daily as needed for constipation. bisacodyl (Dulcolax) 5 MG EC tablet Take 5 mg by mouth Daily as needed. divalproex sprinkle (Depakote Sprinkle) [address] capsule Take 500 mg by mouth 3 times daily. escitalopram (Lexapro) 10 MG tablet Take 1.5 tablets by mouth daily. folic acid (Folvite) 1 MG tablet daily. guaiFENesin (Humibid 3) 400 MG tablet Take 400 mg by mouth every 8 hours as needed for congestion. ipratropium-albuterol (Duo-Neb) 0.5-2.5 mg/3 mL nebulizer solution Inhale 3 mL every 6 hours as needed. levETIRAcetam (Keppra) 750 MG tablet Take 1 tablet by mouth in the morning and 1 tablet before bedtime. magnesium hydroxide (Milk of Magnesia) 400 MG/5ML suspension Take 30 mL by mouth Daily as needed. melatonin 3 MG tablet 3 mg Nightly as needed. Menthol, Topical Analgesic, (Biofreeze Roll-On) 4 % gel Apply topically every 8 hours as needed. naltrexone (Depade) 50 MG tablet Take 50 mg by mouth in the morning. Nirmatrelvir&Ritonavir 300/100 (Paxlovid, 300/100,) 20 x 150 MG & 10 x 100MG tablet therapy pack Take 3 tablets by mouth in the morning and 3 tablets in the evening. 30 tablet 0 pantoprazole (ProtoNix) 40 MG EC tablet 40 mg 2 times daily. polyethylene glycol, PEG, 3350 (Glycolax) 17 GM/SCOOP powder Take 17 g by mouth daily. promethazine (Phenergan) 25 MG tablet Take 1 tablet (25 mg) by mouth every 6 hours as needed for nausea or vom (more content not included)... [facility] 08-19-2023 History and physical note Images from the original note were not included. Attending History and Physical Admit Date: 08/19/2023 PCP: Antonella Marrero CHIEF COMPLAINT: Abdominal pain History Obtained From: ER/Records/Sister Karo HISTORY OF PRESENT ILLNESS: Kari is a 52 y.o. male who presents to the emergency department with a chief complaint of abdominal pain and right leg pain with reported coffee-ground emesis and dark stools. Patient brought in by EMS. Patient currently lives at [facility]. History of alcohol abuse with anoxic brain injury. Patient is on Eliquis for an history of embolism. Denies any chest pain or shortness of breath. Denies lower back pain. Denies fever or chills. Patient was evaluated at [facility] emergency department for right hip pain and abdominal pain 3 days ago. Patient had a right hip x-ray with no acute fracture or dislocation with degenerative changes. CT abdomen reportedly was negative for acute abdominal pelvic process. Patient has hepatic steatosis. Reported fluid in the distal esophagus. Patient was evaluated at [facility] 2 days ago for abdominal pain and dark emesis. Patient had a CT abdomen and pelvis performed at that time that was negative for acute intra-abdominal or pelvic process. Patient reportedly has a fatty liver and a small hiatal hernia. Patient is on pantoprazole. Spoke with sister Karo over the phone. She states they saw black stool on his wheelchair and this is new. They though is was back rubber something. Also she states she is court appointed legal guardian and is primary decision maker. She states he is DNR CCA, no intubation but okay for ICU (states she was told that if he were to go into cardiac arrest again with his history of brain anoxia, he would be a vegetable. Past Medical History: Past Medical History: Diagnosis Date Alcohol abuse with intoxication (HCC) Anemia Anoxic brain damage (CMS/HCC) (HCC) Anxiety Asthma Convulsion (HCC) COPD (chronic obstructive pulmonary disease) (HCC) Depression DVT (deep venous thrombosis) (HCC) Dysphagia Encephalopathy GERD (gastroesophageal reflux disease) Hepatitis Hypertension Impulse control disorder Insomnia, unspecified Need for assistance with personal care Opioid abuse (HCC) Other symbolic dysfunctions Pancreatitis Psychosis (HCC) PTSD (post-traumatic stress disorder) Solitary lung nodule Past Surgical History: Past Surgical History: Procedure Laterality Date APPENDECTOMY BACK SURGERY 5 vertabrae fused CHOLECYSTECTOMY COLONOSCOPY 2014 CT CHEST ANGIOGRAM W AND/OR WO IV CONTRAST 04/08/2022 CT CHEST ANGIOGRAM W AND/OR WO IV CONTRAST 04/08/[address]22 [facility] [address] IMAGING CYST REMOVAL wrist GASTROSTOMY TUBE PLACEMENT 03/01/2017 UPPER GASTROINTESTINAL ENDOSCOPY 02/16/2017 Family History: Family History Problem Relation Name Age of Onset Diabetes Mother Diabetes Brother Medications Prior to Admission: No current facility-administered medications on file prior to encounter. Current Outpatient Medications on File Prior to Encounter Medication Sig Dispense Refill acetaminophen (Tylenol) 325 MG tablet Take 2 tablets by mouth every 6 hours as needed for fever, mild pain (1-3) or moderate pain (4-6). Albuterol Sulfate 108 (90 Base) MCG/ACT aerosol powder Inhale 1 puff every 2 hours as needed. apixaban (Eliquis) 5 MG tablet Take 5 mg by mouth in the morning and 5 mg before bedtime. baclofen (Lioresal) 10 MG tablet Take 10 mg by mouth 3 times daily. bisacodyl (Dulcolax) 10 MG suppository Insert 10 mg into the rectum Daily as needed for constipation. bisacodyl (Dulcolax) 5 MG EC tablet Take 5 mg by mouth Daily as needed. divalproex sprinkle (Depakote Sprinkle) [address] capsule Take 500 mg by mouth 3 times daily. escitalopram (Lexapro) 10 MG tablet Take 1.5 tablets by mouth daily. folic acid (Folvite) 1 MG tablet daily. guaiFENesin (Humibid 3) 400 MG tablet Take 400 mg by mouth every 8 hours as needed for congestion. ipratropium-albuterol (Duo-Neb) 0.5-2.5 mg/3 mL nebulizer solution Inhale 3 mL every 6 hours as needed. levETIRAcetam (Keppra) 750 MG tablet Take 1 tablet by mouth in the morning and 1 tablet before bedtime. magnesium hydroxide (Milk of Magnesia) 400 MG/5ML suspension Take 30 mL by mouth Daily as needed. melatonin 3 MG tablet 3 mg Nightly as needed. Menthol, Topical Analgesic, (Biofreeze Roll-On) 4 % gel Apply topically every 8 hours as needed. naltrexone (Depade) 50 MG tablet Take 50 mg by mouth in the morning. Nirmatrelvir&Ritonavir 300/100 (Paxlovid, 300/100,) 20 x 150 MG & 10 x 100MG tablet therapy pack Take 3 tablets by mouth in the morning and 3 tablets in the evening. 30 tablet 0 pantoprazole (ProtoNix) 40 MG EC tablet 40 mg 2 times daily. polyethylene glycol, PEG, 3350 (Glycolax) 17 GM/SCOOP powder Take 17 g by mouth daily. promethazine (Phenergan) 25 MG tablet Take 1 tablet (25 mg) by mouth every 6 hours as needed for nausea or vomiting for up to 7 days. 20 tablet 0 pyridoxine (Vitamin B-6) 25 MG tablet 25 mg daily. QUEtiapine (SEROquel) 200 MG tablet 200 mg 2 times daily. thiamine (Vitamin B-1) 100 MG tablet 100 mg daily. Throat Lozenges (Cough Drops Menthol) lozenge Dissolve 1 lozenge in the mouth Once as needed. traMADol (Ultram) 50 MG tablet Allergies: Haloperidol and Paregoric Social History: Social History Socioeconomic History Marital status: Single Spouse name: Not on file Number of children: Not on file Years of education: Not on file Highest education level: Not on file Occupational History Not on file Tobacco Use Smoking status: Some Days Packs/day: 2.00 Years: 40.00 Additional pack years: 0.00 Total pack years: 80.00 Types: Cigarettes Smokeless tobacco: Never Vaping Use Vaping Use: Never used Substance and Sexual Activity Alcohol use: Yes Drug use: Not Currently Sexual activity: Not Currently Other Topics Concern Not on file Social History Narrative Not on file Social Determinants of Health Financial Resource Strain: Patient Declined (08/19/2023) Overall Financial Resource Strain (CARDIA) Difficulty of Paying Living Expenses: Patient declined Food Insecurity: No Food Insecurity (08/19/2023) Hunger Vital Sign Worried About Running Out of Food in the Last Year: Never true Ran Out of Food in the Last Year: Never true Transportation Needs: No Transportation Needs (08/19/2023) PRAPARE - Transportation Lack of Transportation (Medical): No Lack of Transportation (Non-Medical): No Physical Activity: Unknown (08/19/2023) Exercise Vital Sign Days of Exercise per Week: 0 days Minutes of Exercise per Session: Not on file Stress: No Stress Concern Present (08/19/2023) [employer] - Occupational Stress Questionnaire Feeling of Stress : Not at all Social Connections: Socially Isolated (08/19/2023) Social Connection and Isolation Panel [NHANES] Frequency of Communication with Friends and Family: Never Frequency of Social Gatherings with Friends and Family: Never Attends Protestant Services: Never Active Member of Clubs or Organizations: No Attends Club or Organization Meetings: Never Marital Status: Intimate Partner Violence: Not At Risk (08/19/2023) Humiliation, Afraid, Rape, and Kick questionnaire Fear of Current or Ex-Partner: No Emotionally Abused: No Physically Abused: No Sexually Abused: No Housing Stability: Low Risk (08/19/2023) Housing Stability Vital Sign Unable to Pay for Housing in the Last Year: No Number of Places Lived in the Last Year: 2 Unstable Housing in the Last Year: No REVIEW OF SYSTEMS: Other than patient's chronic conditions and those complaints in the history above, the rest of the 10 systems review were done and were negative. Vitals: BP 125/86 Pulse 83 Temp 36.1 C (97 F) (Temporal) Resp 18 SpO2 93% BMI Classification: Normal Weight (BMI 18.5-24.9) Pulse Ox: SpO2 Av.7 % Min: 93 % Max: 96 % Supplemental O2: PHYSICAL EXAM: General appearance: No apparent distress, appears stated age and cooperative with exam. HEENT: Eyes: No scleral icterus Oral: Tongue is semi-moist Cardiovascular: S1/S2 heard, RRR Respiratory: Clear to auscultation bilaterally Abdomen: Soft, non-tender, non-distended bowel sounds positive Musculoskeletal: No obvious deformities seen Skin: No visible rashes or lesions. DATA: CBC: Recent Labs 08/19/23232 WBC 7.4 RBC 4.05* HGB 12.4* HCT 35.8* MCV 88.4 RDW 13.2 PLT 167 BMP: Recent Labs 08/19/23232 NA 132* K 3.5 CL 94* CO2 31* BUN 13 CREATININE 1.00 GLUCOSE 100 CALCIUM 9.0 ANIONGAP 7 LIVER PROFILE: Recent Labs 08/19/23232 AST 76* ALT 55* BILITOT 0.6 ALKPHOS 86 PROT 7.0 PT/INR: Recent Labs 03/21/24 0233 PROTIME 10.4 INR 1.0 CARDIAC ENZYMES: No results for input(s): TROPONINI in the last 72 hours. Procalcitonin: No results found for: PROCAL Urine Culture: No results found for this or any previous visit. COVID-19 PCR: No results for input(s): COVID19 in the last 72 hours. I reviewed: [x] laboratory results [x] radiographic results At the time of today's encounter. Pt was advised of the results. IMPRESSION: # GI bleed - reported recurrent dark coffee ground emesis (recently at [facility] 2 days ago for same and [facility]) # Abdominal pain (gastritis? Ulcer?) # History of alcohol abuse with anoxic brain injury. # Patient is on Eliquis for an history of DVT # COPD/Asthma without exacerbation # Chronic HTN # Hx of anxiety/depression/psychosis/PTSD # Hx of solitary lung nodule # Hx of opioid abuse # Hx of GERD # Code status: Karo his sister states she is court appointed legal guardian and is primary decision maker. She states he is DNR CCA, no intubation but okay for ICU (states she was told before that if he were to go into cardiac arrest again with his history of brain anoxia, he would be a vegetable. PLAN: Protonix bid and consult to GI, hold eliquis and any other blood thinners, H/H q8, check stool for occult blood, resume other meds from SNF, NPO for now, IVF, vitals per routine, up with assist, SCDs for dvt proph, check daily labs, please see the rest of the orders for plan of care. Spoke with sister karo over phone. -PT/OT eval/increase activity -am labs, replace lytes prn -vitals per routine -home meds as ordered -DVT prophylaxis: [] Lovenox [] Heparin [] SCDs [x] Encourage ambulation [] Already on Anticoagulation -see below for additional orders, further recommendations to follow Orders Placed This Encounter Procedures Occult blood x 1, stool [facility] SPECIFIC POCUS ORDER Basic metabolic panel Hepatic function panel Lipase CBC auto differential Protime-INR Vital Signs Insert peripheral IV Admit to inpatient Code status: Prior Please forward a copy of this H&P to the patient's PCP. Thank you. Electronically signed by @MEMDNR@ on @TDNR@ at @NOWNR@ documented in this encounter [facility] 08-19-2023 Emergency department Note Report given to BEN Senior on 2E. Lynda Savage RN 08/19/23 0544 [facility] 08-19-2023 Emergency department Note Report given to BEN Senior on 2E. Lynda Savage RN 08/19/23 0544 EMERGENCY DEPARTMENT ENCOUNTER Pt Name: Kari Allan Birthdate 1970 Date of evaluation: 08/19/2023 ED Provider: James Maravilla MD CHIEF COMPLAINT Chief Complaint Patient presents with Abdominal Pain HISTORY OF PRESENT ILLNESS (Location/Symptom, Timing/Onset, Context/Setting, Quality, Duration, Modifying Factors, Severity) Note limiting factors. I wore appropriate PPE for the entirety of this encounter. HPI Kari Allan is a 52 y.o. who presents to the emergency department with a chief complaint of abdominal pain and right leg pain with reported coffee-ground emesis and dark stools. Patient brought in by EMS. Patient currently lives at [facility]. History of alcohol abuse with anoxic brain injury. Patient is on Eliquis for an history of embolism. Denies any chest pain or shortness of breath. Denies lower back pain. Denies fever or chills. Patient was evaluated at [facility] emergency department for right hip pain and abdominal pain 3 days ago. Patient had a right hip x-ray with no acute fracture or dislocation with degenerative changes. CT abdomen reportedly was negative for acute abdominal pelvic process. Patient has hepatic steatosis. Reported fluid in the distal esophagus. Patient was evaluated at [facility] 2 days ago for abdominal pain and dark emesis. Patient had a CT abdomen and pelvis performed at that time that was negative for acute intra-abdominal or pelvic process. Patient reportedly has a fatty liver and a small hiatal hernia. Patient is on pantoprazole. Discussed patient with nursing facility staff and sister for further history. Nursing Notes were reviewed. Limitations to history: history of anoxic brain injury Outside historians: Family sister, EMS, and nurse at [facility] REVIEW OF SYSTEMS Review of Systems Respiratory: Negative for shortness of breath. Cardiovascular: Negative for chest pain. Gastrointestinal: Positive for abdominal pain, nausea and vomiting. Coffee-ground emesis and melena stool per nursing facility staff Musculoskeletal: Negative for back pain. Right leg pain Hematological: On Eliquis Pertinent positives and negatives as per HPI PAST MEDICAL HISTORY Past Medical History: Diagnosis Date Alcohol abuse with intoxication (HCC) Anemia Anoxic brain damage (CMS/HCC) (HCC) Anxiety Asthma Convulsion (HCC) COPD (chronic obstructive pulmonary disease) (HCC) Depression DVT (deep venous thrombosis) (HCC) Dysphagia Encephalopathy GERD (gastroesophageal reflux disease) Hepatitis Hypertension Impulse control disorder Insomnia, unspecified Need for assistance with personal care Opioid abuse (HCC) Other symbolic dysfunctions Pancreatitis Psychosis (HCC) PTSD (post-traumatic stress disorder) Solitary lung nodule SURGICAL HISTORY Past Surgical History: Procedure Laterality Date APPENDECTOMY BACK SURGERY 5 vertabrae fused CHOLECYSTECTOMY COLONOSCOPY 2014 CT CHEST ANGIOGRAM W AND/OR WO IV CONTRAST 04/08/2022 CT CHEST ANGIOGRAM W AND/OR WO IV CONTRAST 04/08/[address]22 [facility] [address] IMAGING CYST REMOVAL wrist GASTROSTOMY TUBE PLACEMENT 03/01/2017 UPPER GASTROINTESTINAL ENDOSCOPY 02/16/2017 CURRENT MEDICATIONS Previous Medications ACETAMINOPHEN (TYLENOL) 325 MG TABLET Take 2 tablets by mouth every 6 hours as needed for fever, mild pain (1-3) or moderate pain (4-6). ALBUTEROL SULFATE 108 (90 BASE) MCG/ACT AEROSOL POWDER Inhale 1 puff every 2 hours as needed. APIXABAN (ELIQUIS) 5 MG TABLET Take 5 mg by mouth in the morning and 5 mg before bedtime. BACLOFEN (LIORESAL) 10 MG TABLET Take 10 mg by mouth 3 times daily. BISACODYL (DULCOLAX) 10 MG SUPPOSITORY Insert 10 mg into the rectum Daily as needed for constipation. BISACODYL (DULCOLAX) 5 MG EC TABLET Take 5 mg by mouth Daily as needed. DIVALPROEX SPRINKLE (DEPAKOTE SPRINKLE) [address] CAPSULE Take 500 mg by mouth 3 times daily. ESCITALOPRAM (LEXAPRO) 10 MG TABLET Take 1.5 tablets by mouth daily. FOLIC ACID (FOLVITE) 1 MG TABLET daily. GUAIFENESIN (HUMIBID 3) 400 MG TABLET Take 400 mg by mouth every 8 hours as needed for congestion. IPRATROPIUM-ALBUTEROL (DUO-NEB) 0.5-2.5 MG/3 ML NEBULIZER SOLUTION Inhale 3 mL every 6 hours as needed. LEVETIRACETAM (KEPPRA) 750 MG TABLET Take 1 tablet by mouth in the morning and 1 tablet before bedtime. MAGNESIUM HYDROXIDE (MILK OF MAGNESIA) 400 MG/5ML SUSPENSION Take 30 mL by mouth Daily as needed. MELATONIN 3 MG TABLET 3 mg Nightly as needed. MENTHOL, TOPICAL ANALGESIC, (BIOFREEZE ROLL-ON) 4 % GEL Apply topically every 8 hours as needed. NALTREXONE (DEPADE) 50 MG TABLET Take 50 mg by mouth in the morning. NIRMATRELVIR&RITONAVIR 300/100 (PAXLOVID, 300/100,) 20 X 150 MG & 10 X 100MG TABLET THERAPY PACK Take 3 tablets by mouth in the morning and 3 tablets in the evening. PANTOPRAZOLE (PROTONIX) 40 MG EC TABLET 40 mg 2 times daily. POLYETHYLENE GLYCOL, PEG, 3350 (GLYCOLAX) 17 GM/SCOOP POWDER Take 17 g by mouth daily. PROMETHAZINE (PHENERGAN) 25 MG TABLET Take 1 tablet (25 mg) by mouth every 6 hours as needed for nausea or vomiting for up to 7 days. PYRIDOXINE (VITAMIN B-6) 25 MG TABLET 25 mg daily. QUETIAPINE (SEROQUEL) 200 MG TABLET 200 mg 2 times daily. THIAMINE (VITAMIN B-1) 100 MG TABLET 100 mg daily. THROAT LOZENGES (COUGH DROPS MENTHOL) LOZENGE Dissolve 1 lozenge in the mouth Once as needed. TRAMADOL (ULTRAM) 50 MG TABLET ALLERGIES Haloperidol and [facility] FAMILY HISTORY Family History Problem Relation Name Age of Onset Diabetes Mother Diabetes Brother SOCIAL HISTORY Social History Socioeconomic History Marital status: Single Tobacco Use Smoking status: Some Days Packs/day: 2.00 Years: 40.00 Additional pack years: 0.00 Total pack years: 80.00 Types: Cigarettes Smokeless tobacco: Never Vaping Use Vaping Use: Never used Substance and Sexual Activity Alcohol use: Yes Drug use: Not Currently Sexual activity: Not Currently Social Determinants of Health Intimate Partner Violence: Patient Unable To Answer (05/20/2023) Humiliation, Afraid, Rape, and Kick questionnaire Fear of Current or Ex-Partner: Patient unable to answer Emotionally Abused: Patient unable to answer Physically Abused: Patient unable to answer Sexually Abused: Patient unable to answer PHYSICAL EXAM ED Triage Vitals [08/19/23 0215] Temp Heart Rate Resp BP 36.8 C (98.3 F) 78 14 114/81 SpO2 Temp Source Heart Rate Source Patient Position 96 % Oral Monitor Lying BP Location FiO2 (%) Right arm -- Physical Exam Vitals and nursing note reviewed. Constitutional: General: He is not in acute distress. Appearance: He is not toxic-appearing. Comments: 52-year-old male HENT: Head: Atraumatic. Eyes: Extraocular Movements: Extraocular movements intact. Conjunctiva/sclera: Conjunctivae normal. Pupils: Pupils are equal, round, and reactive to light. Cardiovascular: Rate and Rhythm: Normal rate and regular rhythm. Pulses: Normal pulses. Comments: 2+ symmetric radial, tibialis posterior, dorsalis pedis pulses Pulmonary: Effort: Pulmonary effort is normal. Breath sounds: Normal breath sounds. Abdominal: Palpations: Abdomen is soft. Tenderness: There is no abdominal tenderness. There is no guarding or rebound. Genitourinary: Comments: Rectal exam performed with nurse pantry goods maker. Melena stool. Fecal occult positive. Musculoskeletal: Cervical back: Normal range of motion. Right lower leg: No edema. Left lower leg: No edema. Comments: No pain with logroll. Pelvis stable to compression. No obvious deformity. No thoracic, lumbar, sacral spinal tenderness. Skin: General: Skin is warm and dry. Comments: No overlying rash or skin changes right lower extremity Neurological: Mental Status: He is alert. Comments: Able to lift all 4 extremities against gravity. Sensation reported intact to light touch from L1-S1. Patient has intact 5 out of 5 strength of flexion extension of hip, knee, ankle, toes. Positive ipsilateral leg raise at 40 degrees DIAGNOSTIC RESULTS RADIOLOGY (Per Emergency Physician): Interpretation per the Radiologist below, if available at the time of this note: [facility] SPECIFIC POCUS ORDER Final Result LABS: Labs Reviewed OCCULT BLOOD, STOOL - Abnormal Result Value Fecal occult blood Positive (*) Narrative: Methodology: Immunoassay BASIC METABOLIC PANEL - Abnormal SODIUM 132 (*) POTASSIUM 3.5 CHLORIDE 94 (*) CARBON DIOXIDE 31 (*) UREA NITROGEN 13 CREATININE 1.00 GLUCOSE 100 CALCIUM 9.0 ANION GAP 7 eGFR 89.4 HEPATIC FUNCTION PANEL - Abnormal BILIRUBIN, TOTAL 0.6 BILIRUBIN, DIRECT 0.0 ALKALINE PHOSPHATASE 86 AST (SGOT) 76 (*) ALT 55 (*) ALBUMIN 3.7 TOTAL PROTEIN 7.0 CBC WITH AUTO DIFFERENTIAL - Abnormal Auto WBC 7.4 RBC 4.05 (*) Hemoglobin 12.4 (*) Hematocrit 35.8 (*) MCV 88.4 MCH 30.6 MCHC 34.6 RDW 13.2 Platelets 167 MPV 8.5 (*) nRBC 0.0 Neutrophils Relative 56.2 Lymphocytes Relative 29.4 Monocytes Relative 11.1 Eosinophils Relative 2.6 Basophils Relative 0.4 Immature Grans % 0.3 Neutrophils Absolute 4.2 Lymphocytes Absolute 2.2 Monocytes Absolute 0.8 Eosinophils Absolute 0.2 Basophils Absolute 0.0 Immature Grans Absolute 0.0 LIPASE - Normal LIPASE 31 PROTHROMBIN TIME - Normal PROTHROMBIN TIME 10.4 INR 1.0 All other labs were within normal range or not returned as of this dictation. EMERGENCY DEPARTMENT COURSE and DIFFERENTIAL DIAGNOSIS/MDM: Vitals: Vitals: 08/19/23 0215 BP: 114/81 BP Location: Right arm Patient Position: Lying Pulse: 78 Resp: 14 Temp: 36.8 C (98.3 F) TempSrc: Oral SpO2: 96% Medications pantoprazole (ProtoNix) 80 mg in sodium chloride (PF) 0.9 % 20 mL injection (80 mg IntraVENous Given 08/19/23 0241) Patient evaluated for abdominal pain, coffee-ground emesis, melena, and right leg pain. Fecal occult was positive for blood and patient had melena stool. Patient is hemodynamically stable. Blood pressure within normal limits. Patient is nontachycardic. Abdomen soft nontender on exam. However patient had a drop in his hemoglobin to 12.4 from 15.5 three days ago. Treated with intravenous pantoprazole. Patient reportedly is on pantoprazole as an outpatient. Patient is on Eliquis. Reversal not felt to be indicated at this time. CTs were consistent with hepatic steatosis but were not consistent with cirrhosis. No reported known varices. Patient has a normal BUN on metabolic panel. [id number] ultrasound was negative for proximal DVT on right lower extremity. Patient's neurovascular intact. Palpable pulses. Concern for possible radiculopathy. No spinal tenderness. This is the patient's third emergency department visit this week. Due to drop in hemoglobin patient felt to warrant admission to hospital for gastroenterology evaluation and continued monitoring. ED Course as of 08/19/23 0343 Francy Aug 19, [id number] - [place] [facility]- nurse Left sided abdominal pain seen at [facility] 08/15 Yesterday seen at [facility]- Coffee ground emesis Today black tarry stools and an episode of dark brown [SP] 0223 Karo Sanford (sister) [phone] concern for right leg pain [SP] 0300 Auto WBC: 7.4 [SP] 0300 HEMOGLOBIN(!): 12.4 [SP] 0300 eGFR: 89.4 [SP] 0300 Urea Nitrogen (BUN): 13 [SP] 0305 Fecal occult blood(!): Positive [SP] 0305 HEMOGLOBIN(!): 12.4 Drop from 15.5 two days ago [SP] ED Course User Index [SP] James Maravilla MD Diagnoses as of 08/19/23 0343 Upper GI bleeding Abdominal pain, generalized Right leg pain MDM elements: The patient presented with chief complaint of abdominal pain, right leg pain, coffee-ground emesis, melena. The differential diagnosis associated with this patient's presentation includes upper GI bleed, lower GI bleed, DVT, radiculopathy, strain. Our workup consisted of ordering/reviewing: Blood work [id number] ultrasound. Diagnostic tests considered but not performed: CT abdomen as patient had 2 CTs this week I also reviewed external records from Care everywhere reviewed previous emergency department visit and visit at [facility]-see HPI. I discussed their care with Admitting team Dr. Gonzalez from [facility] hospitalist service. The patient will be Admitted. Patient is in agreement with this plan. PROCEDURES: Unless otherwise noted below, none Procedures FINAL IMPRESSION 1. Upper GI bleeding 2. Abdominal pain, generalized 3. Right leg pain DISPOSITION Admit 08/19/2023 03:11:17 AM PATIENT REFERRED TO: No follow-up provider specified. DISCHARGE MEDICATIONS: New Prescriptions No medications on file (Comment: Please note this report has been produced using speech recognition software and may contain errors related to that system including errors in grammar, punctuation, and spelling, as well as words and phrases that may be inappropriate. If there are any questions or concerns please feel free to contact the dictating provider for clarification.) James Maravilla MD (electronically signed) Emergency Medicine Provider James Maravilla MD 08/19/23 0347 Kari Allan, age 52, came to ED7 by squad for abdominal pain. Pt stated he is having black stools and pt also stated it feels like it just won't come out. Squad [facility] and was recently at [facility]. Pt is A0x 2. Pt has hx of anoxic brain injury, encephalitis and ETOH abuse. Vitals obtained. 20G IV placed in left AC. Physician at bedside. documented in this encounter [facility] 08-19-2023 Note Associated Order(s): [facility] SPECIFIC POCUS ORDER Procedure [facility] SPECIFIC POCUS ORDER Performed by: James Maravilla MD Authorized by: James Maravilla MD Type of Exam: DVT Indications for Ultrasound: Right leg pain Credentialed Provider Attestation: Are you an Ultrasound Credentialed Provider?: Yes Does PoC US immage meet quality guidelines?: Adequate Is PoC US Chargeable?: $Charge$ Signed: James Maravilla Procedure details: Indications: Lower extremity pain Assessment for: DVT Findings: Right common femoral vein: Compressible Right deep and superficial femoral veins: Compressible Right popliteal vein: Compressible Impression: DVT: None James Maravilla MD 08/19/23 0305 [facility] 08-19-2023 Note Associated Order(s): [facility] SPECIFIC POCUS ORDER Procedure [facility] SPECIFIC POCUS ORDER Performed by: James Maravilla MD Authorized by: James Maravilla MD Type of Exam: DVT Indications for Ultrasound: Right leg pain Credentialed Provider Attestation: Are you an Ultrasound Credentialed Provider?: Yes Does PoC US immage meet quality guidelines?: Adequate Is PoC US Chargeable?: $Charge$ Signed: James Maravilla Procedure details: Indications: Lower extremity pain Assessment for: DVT Findings: Right common femoral vein: Compressible Right deep and superficial femoral veins: Compressible Right popliteal vein: Compressible Impression: DVT: None James Maravilla MD 08/19/23 0305 [facility] 08-19-2023 Note Procedure [facility] SPECIFIC POCUS ORDER Performed by: James Maravilla MD Authorized by: James Maravilla MD Type of Exam: DVT Indications for Ultrasound: Right leg pain Credentialed Provider Attestation: Are you an Ultrasound Credentialed Provider?: Yes Does PoC US immage meet quality guidelines?: Adequate Is PoC US Chargeable?: $Charge$ Signed: James Maravilla Procedure details: Indications: Lower extremity pain Assessment for: DVT Findings: Right common femoral vein: Compressible Right deep and superficial femoral veins: Compressible Right popliteal vein: Compressible Impression: DVT: None James Maravilla MD 08/19/23 030 [facility] 08-19-2023 Emergency department Triage note Kari Allan, age 52, came to ED7 by ginny for abdominal pain. Pt stated he is having black stools and pt also stated it feels like it just won't come out. Squad stated [facility] and was recently at [facility]. Pt is A0x 2. Pt has hx of anoxic brain injury, encephalitis and ETOH abuse. Vitals obtained. 20G IV placed in left AC. Physician at bedside. [facility] 08-19-2023 Physician Emergency department Note EMERGENCY DEPARTMENT ENCOUNTER Pt Name: Kari Allan Birthdate 1970 Date of evaluation: 08/19/2023 ED Provider: James Maravilla MD CHIEF COMPLAINT Chief Complaint Patient presents with Abdominal Pain HISTORY OF PRESENT ILLNESS (Location/Symptom, Timing/Onset, Context/Setting, Quality, Duration, Modifying Factors, Severity) Note limiting factors. I wore appropriate PPE for the entirety of this encounter. HPI Kari Allan is a 52 y.o. who presents to the emergency department with a chief complaint of abdominal pain and right leg pain with reported coffee-ground emesis and dark stools. Patient brought in by EMS. Patient currently lives at [facility]. History of alcohol abuse with anoxic brain injury. Patient is on Eliquis for an history of embolism. Denies any chest pain or shortness of breath. Denies lower back pain. Denies fever or chills. Patient was evaluated at [facility] emergency department for right hip pain and abdominal pain 3 days ago. Patient had a right hip x-ray with no acute fracture or dislocation with degenerative changes. CT abdomen reportedly was negative for acute abdominal pelvic process. Patient has hepatic steatosis. Reported fluid in the distal esophagus. Patient was evaluated at [facility] 2 days ago for abdominal pain and dark emesis. Patient had a CT abdomen and pelvis performed at that time that was negative for acute intra-abdominal or pelvic process. Patient reportedly has a fatty liver and a small hiatal hernia. Patient is on pantoprazole. Discussed patient with nursing facility staff and sister for further history. Nursing Notes were reviewed. Limitations to history: history of anoxic brain injury Outside historians: Family sister, EMS, and nurse at [place] [place] REVIEW OF SYSTEMS Review of Systems Respiratory: Negative for shortness of breath. Cardiovascular: Negative for chest pain. Gastrointestinal: Positive for abdominal pain, nausea and vomiting. Coffee-ground emesis and melena stool per nursing facility staff Musculoskeletal: Negative for back pain. Right leg pain Hematological: On Eliquis Pertinent positives and negatives as per HPI PAST MEDICAL HISTORY Past Medical History: Diagnosis Date Alcohol abuse with intoxication (HCC) Anemia Anoxic brain damage (CMS/HCC) (HCC) Anxiety Asthma Convulsion (HCC) COPD (chronic obstructive pulmonary disease) (HCC) Depression DVT (deep venous thrombosis) (HCC) Dysphagia Encephalopathy GERD (gastroesophageal reflux disease) Hepatitis Hypertension Impulse control disorder Insomnia, unspecified Need for assistance with personal care Opioid abuse (HCC) Other symbolic dysfunctions Pancreatitis Psychosis (HCC) PTSD (post-traumatic stress disorder) Solitary lung nodule SURGICAL HISTORY Past Surgical History: Procedure Laterality Date APPENDECTOMY BACK SURGERY 5 vertabrae fused CHOLECYSTECTOMY COLONOSCOPY 2014 CT CHEST ANGIOGRAM W AND/OR WO IV CONTRAST 04/08/2022 CT CHEST ANGIOGRAM W AND/OR WO IV CONTRAST 04/08/[address]22 [facility] IMAGING CYST REMOVAL wrist GASTROSTOMY TUBE PLACEMENT 03/01/2017 UPPER GASTROINTESTINAL ENDOSCOPY 02/16/2017 CURRENT MEDICATIONS Previous Medications ACETAMINOPHEN (TYLENOL) 325 MG TABLET Take 2 tablets by mouth every 6 hours as needed for fever, mild pain (1-3) or moderate pain (4-6). ALBUTEROL SULFATE 108 (90 BASE) MCG/ACT AEROSOL POWDER Inhale 1 puff every 2 hours as needed. APIXABAN (ELIQUIS) 5 MG TABLET Take 5 mg by mouth in the morning and 5 mg before bedtime. BACLOFEN (LIORESAL) 10 MG TABLET Take 10 mg by mouth 3 times daily. BISACODYL (DULCOLAX) 10 MG SUPPOSITORY Insert 10 mg into the rectum Daily as needed for constipation. BISACODYL (DULCOLAX) 5 MG EC TABLET Take 5 mg by mouth Daily as needed. DIVALPROEX SPRINKLE (DEPAKOTE SPRINKLE) [address] CAPSULE Take 500 mg by mouth 3 times daily. ESCITALOPRAM (LEXAPRO) 10 MG TABLET Take 1.5 tablets by mouth daily. FOLIC ACID (FOLVITE) 1 MG TABLET daily. GUAIFENESIN (HUMIBID 3) 400 MG TABLET Take 400 mg by mouth every 8 hours as needed for congestion. IPRATROPIUM-ALBUTEROL (DUO-NEB) 0.5-2.5 MG/3 ML NEBULIZER SOLUTION Inhale 3 mL every 6 hours as needed. LEVETIRACETAM (KEPPRA) 750 MG TABLET Take 1 tablet by mouth in the morning and 1 tablet before bedtime. MAGNESIUM HYDROXIDE (MILK OF MAGNESIA) 400 MG/5ML SUSPENSION Take 30 mL by mouth Daily as needed. MELATONIN 3 MG TABLET 3 mg Nightly as needed. MENTHOL, TOPICAL ANALGESIC, (BIOFREEZE ROLL-ON) 4 % GEL Apply topically every 8 hours as needed. NALTREXONE (DEPADE) 50 MG TABLET Take 50 mg by mouth in the morning. NIRMATRELVIR&RITONAVIR 300/100 (PAXLOVID, 300/100,) 20 X 150 MG & 10 X 100MG TABLET THERAPY PACK Take 3 tablets by mouth in the morning and 3 tablets in the evening. PANTOPRAZOLE (PROTONIX) 40 MG EC TABLET 40 mg 2 times daily. POLYETHYLENE GLYCOL, PEG, 3350 (GLYCOLAX) 17 GM/SCOOP POWDER Take 17 g by mouth daily. PROMETHAZINE (PHENERGAN) 25 MG TABLET Take 1 tablet (25 mg) by mouth every 6 hours as needed for nausea or vomiting for up to 7 days. PYRIDOXINE (VITAMIN B-6) 25 MG TABLET 25 mg daily. QUETIAPINE (SEROQUEL) 200 MG TABLET 200 mg 2 times daily. THIAMINE (VITAMIN B-1) 100 MG TABLET 100 mg daily. THROAT LOZENGES (COUGH DROPS MENTHOL) LOZENGE Dissolve 1 lozenge in the mouth Once as needed. TRAMADOL (ULTRAM) 50 MG TABLET ALLERGIES Haloperidol and Paregoric FAMILY HISTORY Family History Problem Relation Name Age of Onset Diabetes Mother Diabetes Brother SOCIAL HISTORY Social History Socioeconomic History Marital status: Single Tobacco Use Smoking status: Some Days Packs/day: 2.00 Years: 40.00 Additional pack years: 0.00 Total pack years: 80.00 Types: Cigarettes Smokeless tobacco: Never Vaping Use Vaping Use: Never used Substance and Sexual Activity Alcohol use: Yes Drug use: Not Currently Sexual activity: Not Currently Social Determinants of Health Intimate Partner Violence: Patient Unable To Answer (05/20/2023) Humiliation, Afraid, Rape, and Kick questionnaire Fear of Current or Ex-Partner: Patient unable to answer Emotionally Abused: Patient unable to answer Physically Abused: Patient unable to answer Sexually Abused: Patient unable to answer PHYSICAL EXAM ED Triage Vitals [08/19/23 0215] Temp Heart Rate Resp BP 36.8 C (98.3 F) 78 14 114/81 SpO2 Temp Source Heart Rate Source Patient Position 96 % Oral Monitor Lying BP Location FiO2 (%) Right arm -- Physical Exam Vitals and nursing note reviewed. Constitutional: General: He is not in acute distress. Appearance: He is not toxic-appearing. Comments: 52-year-old male HENT: Head: Atraumatic. Eyes: Extraocular Movements: Extraocular movements intact. Conjunctiva/sclera: Conjunctivae normal. Pupils: Pupils are equal, round, and reactive to light. Cardiovascular: Rate and Rhythm: Normal rate and regular rhythm. Pulses: Normal pulses. Comments: 2+ symmetric radial, tibialis posterior, dorsalis pedis pulses Pulmonary: Effort: Pulmonary effort is normal. Breath sounds: Normal breath sounds. Abdominal: Palpations: Abdomen is soft. Tenderness: There is no abdominal tenderness. There is no guarding or rebound. Genitourinary: Comments: Rectal exam performed with nurse pantry goods maker. Melena stool. Fecal occult positive. Musculoskeletal: Cervical back: Normal range of motion. Right lower leg: No edema. Left lower leg: No edema. Comments: No pain with logroll. Pelvis stable to compression. No obvious deformity. No thoracic, lumbar, sacral spinal tenderness. Skin: General: Skin is warm and dry. Comments: No overlying rash or skin changes right lower extremity Neurological: Mental Status: He is alert. Comments: Able to lift all 4 extremities against gravity. Sensation reported intact to light touch from L1-S1. Patient has intact 5 out of 5 strength of flexion extension of hip, knee, ankle, toes. Positive ipsilateral leg raise at 40 degrees DIAGNOSTIC RESULTS RADIOLOGY (Per Emergency Physician): Interpretation per the Radiologist below, if available at the time of this note: [facility] SPECIFIC POCUS ORDER Final Result LABS: Labs Reviewed OCCULT BLOOD, STOOL - Abnormal Result Value Fecal occult blood Positive (*) Narrative: Methodology: Immunoassay BASIC METABOLIC PANEL - Abnormal SODIUM 132 (*) POTASSIUM 3.5 CHLORIDE 94 (*) CARBON DIOXIDE 31 (*) UREA NITROGEN 13 CREATININE 1.00 GLUCOSE 100 CALCIUM 9.0 ANION GAP 7 eGFR 89.4 HEPATIC FUNCTION PANEL - Abnormal BILIRUBIN, TOTAL 0.6 BILIRUBIN, DIRECT 0.0 ALKALINE PHOSPHATASE 86 AST (SGOT) 76 (*) ALT 55 (*) ALBUMIN 3.7 TOTAL PROTEIN 7.0 CBC WITH AUTO DIFFERENTIAL - Abnormal Auto WBC 7.4 RBC 4.05 (*) Hemoglobin 12.4 (*) Hematocrit 35.8 (*) MCV 88.4 MCH 30.6 MCHC 34.6 RDW 13.2 Platelets 167 MPV 8.5 (*) nRBC 0.0 Neutrophils Relative 56.2 Lymphocytes Relative 29.4 Monocytes Relative 11.1 Eosinophils Relative 2.6 Basophils Relative 0.4 Immature Grans % 0.3 Neutrophils Absolute 4.2 Lymphocytes Absolute 2.2 Monocytes Absolute 0.8 Eosinophils Absolute 0.2 Basophils Absolute 0.0 Immature Grans Absolute 0.0 LIPASE - Normal LIPASE 31 PROTHROMBIN TIME - Normal PROTHROMBIN TIME 10.4 INR 1.0 All other labs were within normal range or not returned as of this dictation. EMERGENCY DEPARTMENT COURSE and DIFFERENTIAL DIAGNOSIS/MDM: Vitals: Vitals: 08/19/23 0215 BP: 114/81 BP Location: Right arm Patient Position: Lying Pulse: 78 Resp: 14 Temp: 36.8 C (98.3 F) TempSrc: Oral SpO2: 96% Medications pantoprazole (ProtoNix) 80 mg in sodium chloride (PF) 0.9 % 20 mL injection (80 mg IntraVENous Given 08/19/23 0241) Patient evaluated for abdominal pain, coffee-ground emesis, melena, and right leg pain. Fecal occult was positive for blood and patient had melena stool. Patient is hemodynamically stable. Blood pressure within normal limits. Patient is nontachycardic. Abdomen soft nontender on exam. However patient had a drop in his hemoglobin to 12.4 from 15.5 three days ago. Treated with intravenous pantoprazole. Patient reportedly is on pantoprazole as an outpatient. Patient is on Eliquis. Reversal not felt to be indicated at this time. CTs were consistent with hepatic steatosis but were not consistent with cirrhosis. No reported known varices. Patient has a normal BUN on metabolic panel. Lnata-[id number]-[id number] ultrasound was negative for proximal DVT on right lower extremity. Patient's neurovascular intact. Palpable pulses. Concern for possible radiculopathy. No spinal tenderness. This is the patient's third emergency department visit this week. Due to drop in hemoglobin patient felt to warrant admission to hospital for gastroenterology evaluation and continued monitoring. ED Course as of 08/19/23 0343 Francy Aug 19, 20239 - [place] [facility]- nurse Left sided abdominal pain seen at [place] 08/15 Yesterday seen at [facility]- Coffee ground emesis Today black tarry stools and an episode of dark brown [SP] 0223 Karo Sanford (sister) [phone] concern for right leg pain [SP] 0300 Auto WBC: 7.4 [SP] 0300 HEMOGLOBIN(!): 12.4 [SP] 0300 eGFR: 89.4 [SP] 0300 Urea Nitrogen (BUN): 13 [SP] 0305 Fecal occult blood(!): Positive [SP] 0305 HEMOGLOBIN(!): 12.4 Drop from 15.5 two days ago [SP] ED Course User Index [SP] James Maravilla MD Diagnoses as of 08/19/23 0343 Upper GI bleeding Abdominal pain, generalized Right leg pain MDM elements: The patient presented with chief complaint of abdominal pain, right leg pain, coffee-ground emesis, melena. The differential diagnosis associated with this patient's presentation includes upper GI bleed, lower GI bleed, DVT, radiculopathy, strain. Our workup consisted of ordering/reviewing: Blood work [id number] ultrasound. Diagnostic tests considered but not performed: CT abdomen as patient had 2 CTs this week I also reviewed external records from Care everywhere reviewed previous emergency department visit and visit at [facility]. I discussed their care with Admitting team Dr. Gonzalez from [facility] hospitalist service. The patient will be Admitted. Patient is in agreement with this plan. PROCEDURES: Unless otherwise noted below, none Procedures FINAL IMPRESSION 1. Upper GI bleeding 2. Abdominal pain, generalized 3. Right leg pain DISPOSITION Admit 08/19/2023 03:11:17 AM PATIENT REFERRED TO: No follow-up provider specified. DISCHARGE MEDICATIONS: New Prescriptions No medications on file (Comment: Please note this report has been produced using speech recognition software and may contain errors related to that system including errors in grammar, punctuation, and spelling, as well as words and phrases that may be inappropriate. If there are any questions or concerns please feel free to contact the dictating provider for clarification.) James Maravilla MD (electronically signed) Emergency Medicine Provider James Maravilla MD 08/19/23 0347 [facility] 08-16-2023 Emergency department Note Called [facility] for updated ETA. Dispatcher states they will be there shortly. Celeste Gibson RN 08/16/2321 [facility] 08-16-2023 Emergency department Note Called [facility] for updated ETA. Dispatcher states they will be there shortly. Celeste Gibson RN 08/16/2321 Report called to [facility] [place]. [facility] transport called for transport. ETA 0750. Mini Albarran LPN 08/16/23 0658 This RN was notified that patient was out of bed and appeared to to vomiting in the bedside commode. When I went to pt bedside pt was standing over the bedside vomiting into the bedside commode. This RN notified Dr Colindres who placed order for Zofran that was given Celeste Gibson RN 08/16/23 0609 EMERGENCY DEPARTMENT ENCOUNTER Pt Name: Kari Allan Birthdate 1970 Date of evaluation: 08/16/2023 ED Provider: Renata Colindres MD CHIEF COMPLAINT No chief complaint on file. HISTORY OF PRESENT ILLNESS (Location/Symptom, Timing/Onset, Context/Setting, Quality, Duration, Modifying Factors, Severity) Note limiting factors. I wore appropriate PPE for the entirety of this encounter. HPI Kari Allan is a 52 y.o. who presents to the emergency department with chief complaint of right hip pain abdominal pain patient is very poor historian I tried calling his family but was unable to get in touch with anyone he has a history of anoxic brain injury and alcohol abuse. Says that his belly was hurting and some right hip pain but denies trauma or falls no other complaints here Nursing Notes were reviewed. Limitations to history: Outside historians: REVIEW OF SYSTEMS Review of Systems Pertinent positives and negatives as per HPI. PAST MEDICAL HISTORY Past Medical History: Diagnosis Date Alcohol abuse with intoxication (HCC) Anemia Anoxic brain damage (CMS/HCC) (HCC) Anxiety Asthma Convulsion (HCC) COPD (chronic obstructive pulmonary disease) (HCC) Depression DVT (deep venous thrombosis) (HCC) Dysphagia Encephalopathy GERD (gastroesophageal reflux disease) Hepatitis Hypertension Impulse control disorder Insomnia, unspecified Need for assistance with personal care Opioid abuse (HCC) Other symbolic dysfunctions Pancreatitis Psychosis (HCC) PTSD (post-traumatic stress disorder) Solitary lung nodule SURGICAL HISTORY Past Surgical History: Procedure Laterality Date APPENDECTOMY BACK SURGERY 5 vertabrae fused CHOLECYSTECTOMY COLONOSCOPY 2014 CT CHEST ANGIOGRAM W AND/OR WO IV CONTRAST 04/08/2022 CT CHEST ANGIOGRAM W AND/OR WO IV CONTRAST 04/08/[address]22 [facility] [address] IMAGING CYST REMOVAL wrist GASTROSTOMY TUBE PLACEMENT 03/01/2017 UPPER GASTROINTESTINAL ENDOSCOPY 02/16/2017 CURRENT MEDICATIONS Previous Medications ACETAMINOPHEN (TYLENOL) 325 MG TABLET Take 2 tablets by mouth every 6 hours as needed for fever, mild pain (1-3) or moderate pain (4-6). ALBUTEROL SULFATE 108 (90 BASE) MCG/ACT AEROSOL POWDER Inhale 1 puff every 2 hours as needed. APIXABAN (ELIQUIS) 5 MG TABLET Take 5 mg by mouth in the morning and 5 mg before bedtime. BACLOFEN (LIORESAL) 10 MG TABLET Take 10 mg by mouth 3 times daily. BISACODYL (DULCOLAX) 10 MG SUPPOSITORY Insert 10 mg into the rectum Daily as needed for constipation. BISACODYL (DULCOLAX) 5 MG EC TABLET Take 5 mg by mouth Daily as needed. DIVALPROEX SPRINKLE (DEPAKOTE SPRINKLE) [address] CAPSULE Take 500 mg by mouth 3 times daily. ESCITALOPRAM (LEXAPRO) 10 MG TABLET Take 1.5 tablets by mouth daily. FOLIC ACID (FOLVITE) 1 MG TABLET daily. GUAIFENESIN (HUMIBID 3) 400 MG TABLET Take 400 mg by mouth every 8 hours as needed for congestion. IPRATROPIUM-ALBUTEROL (DUO-NEB) 0.5-2.5 MG/3 ML NEBULIZER SOLUTION Inhale 3 mL every 6 hours as needed. LEVETIRACETAM (KEPPRA) 750 MG TABLET Take 1 tablet by mouth in the morning and 1 tablet before bedtime. MAGNESIUM HYDROXIDE (MILK OF MAGNESIA) 400 MG/5ML SUSPENSION Take 30 mL by mouth Daily as needed. MELATONIN 3 MG TABLET 3 mg Nightly as needed. MENTHOL, TOPICAL ANALGESIC, (BIOFREEZE ROLL-ON) 4 % GEL Apply topically every 8 hours as needed. NALTREXONE (DEPADE) 50 MG TABLET Take 50 mg by mouth in the morning. NIRMATRELVIR&RITONAVIR 300/100 (PAXLOVID, 300/100,) 20 X 150 MG & 10 X 100MG TABLET THERAPY PACK Take 3 tablets by mouth in the morning and 3 tablets in the evening. PANTOPRAZOLE (PROTONIX) 40 MG EC TABLET 40 mg 2 times daily. POLYETHYLENE GLYCOL, PEG, 3350 (GLYCOLAX) 17 GM/SCOOP POWDER Take 17 g by mouth daily. PYRIDOXINE (VITAMIN B-6) 25 MG TABLET 25 mg daily. QUETIAPINE (SEROQUEL) 200 MG TABLET 200 mg 2 times daily. THIAMINE (VITAMIN B-1) 100 MG TABLET 100 mg daily. THROAT LOZENGES (COUGH DROPS MENTHOL) LOZENGE Dissolve 1 lozenge in the mouth Once as needed. TRAMADOL (ULTRAM) 50 MG TABLET ALLERGIES Haloperidol and Paregoric FAMILY HISTORY Family History Problem Relation Name Age of Onset Diabetes Mother Diabetes Brother SOCIAL HISTORY Social History Socioeconomic History Marital status: Single Tobacco Use Smoking status: Some Days Packs/day: 2.00 Years: 40.00 Additional pack years: 0.00 Total pack years: 80.00 Types: Cigarettes Smokeless tobacco: Never Vaping Use Vaping Use: Never used Substance and Sexual Activity Alcohol use: Yes Drug use: Not Currently Sexual activity: Not Currently Social Determinants of Health Intimate Partner Violence: Patient Unable To Answer (05/20/2023) Humiliation, Afraid, Rape, and Kick questionnaire Fear of Current or Ex-Partner: Patient unable to answer Emotionally Abused: Patient unable to answer Physically Abused: Patient unable to answer Sexually Abused: Patient unable to answer SCREENINGS PHYSICAL EXAM ED Triage Vitals [08/16/23 0132] Temp Heart Rate Resp BP 37.4 C (99.4 F) 98 17 (!) 118/92 SpO2 Temp src Heart Rate Source Patient Position 94 % -- Monitor -- BP Location FiO2 (%) -- -- Physical Exam Vitals and nursing note reviewed. Constitutional: General: He is not in acute distress. Appearance: He is well-developed. HENT: Head: Normocephalic and atraumatic. Eyes: Conjunctiva/sclera: Conjunctivae normal. Abdominal: General: There is no distension. Palpations: Abdomen is soft. Tenderness: There is no abdominal tenderness. There is no guarding. Musculoskeletal: Comments: Right hip with no pain with logroll range of motion no external skin changes good pulses in the right foot normal strength sensation of the right foot Neurological: Mental Status: He is alert. Psychiatric: Mood and Affect: Mood normal. Behavior: Behavior normal. DIAGNOSTIC RESULTS Procedures/EKG: EKG was reviewed by myself. Physician EKG interpretation can be found in [facility] RADIOLOGY (Per Emergency Physician): Interpretation per the Radiologist below, if available at the time of this note: CT abdomen pelvis w contrast (Results Pending) XR hip right 2 or 3 views (Results Pending) ED BEDSIDE ULTRASOUND: Performed by ED Physician - none LABS: Labs Reviewed CBC WITH AUTO DIFFERENTIAL COMPREHENSIVE METABOLIC PANEL LIPASE COMPLETE URINALYSIS WITH REFLEX TO CULTURE Narrative: The following orders were created for panel order Urinalysis Complete with reflex to Culture. Procedure Abnormality Status --------- ------ Complete Urinalysis[[id number]] Please view results for these tests on the individual orders. COMPLETE URINALYSIS All other labs were within normal range or not returned as of this dictation. EMERGENCY DEPARTMENT COURSE and DIFFERENTIAL DIAGNOSIS/MDM: Vitals: Vitals: 08/16/23 0132 BP: (!) 118/92 Pulse: 98 Resp: 17 Temp: 37.4 C (99.4 F) SpO2: 94% Weight: 68 kg (150 lb) Height: 1.778 m (5' 10) Patient 52 presenting with right hip pain and abdominal pain patient's poor historian likely secondary to anoxic brain injury sounds like is just began tonight plan to get CT of the abdomen pelvis as well as x-rays of the hip. Suspicion for septic joint as he has no fever and he can range his hip without pain he is neurovascularly intact in the right leg and no skin changes no history of trauma but again he is a poor historian and try calling his family to get more history but nobody answered. Exam is largely benign plan to check labs including a troponin and get a CT to make sure does not interested abdominal pathology dispo pending Diagnoses as of 08/16/23 0558 Abdominal pain, unspecified abdominal location Medications - No data to display REVAL: Work appears benign I spoke with the nurse at the facility he came from so they did start with some testicular pain and then back and abdominal pain and pain to the right hip. I reevaluated the patient has no abdominal pain he is vomiting now. Vitals remained stable he has no reproducible testicular pain at this time he has no testicle pain he tells manage no scrotal swelling or cellulitis or abnormality on his exam. Will treat the nausea with Zofran and if he is feeling better tolerating p.o. anticipate discharge. Troponins within normal limits CRITICAL CARE TIME CONSULTS: None PROCEDURES: Unless otherwise noted below, none Procedures Patients symptoms are consistent with sepsis, severe sepsis, or septic shock (If yes use .sepsiscoremeasure): no FINAL IMPRESSION No diagnosis found. DISPOSITION PATIENT REFERRED TO: No follow-up provider specified. DISCHARGE MEDICATIONS: New Prescriptions No medications on file (Comment: Please note this report has been produced using speech recognition software and may contain errors related to that system including errors in grammar, punctuation, and spelling, as well as words and phrases that may be inappropriate. If there are any questions or concerns please feel free to contact the dictating provider for clarification.) Renata Colindres MD (electronically signed) Emergency Medicine Provider Renata Colindres MD 08/16/23 0216 Renata Colindres MD 08/16/23 0613 Pt to the ED by EMS per EMS pt c/o R lateral hip pain that radiates down to leg. Pt also complaints of abdominal pain. Pt is A&O x1 documented in this encounter [facility] 08-16-2023 Emergency department Note Report called to [place] [facility]. [facility] transport called for transport. ETA 0750. Mini Albarran LPN 08/16/23 0658 [facility] 08-16-2023 Emergency department Note This RN was notified that patient was out of bed and appeared to to vomiting in the bedside commode. When I went to pt bedside pt was standing over the bedside vomiting into the bedside commode. This RN notified Dr Colindres who placed order for Zofran that was given Celeste Gibson RN 08/16/23 0609 [facility] 08-16-2023 Emergency department Triage note Pt to the ED by EMS per EMS pt c/o R lateral hip pain that radiates down to leg. Pt also complaints of abdominal pain. Pt is A&O x1 [facility] 08-16-2023 Physician Emergency department Note EMERGENCY DEPARTMENT ENCOUNTER Pt Name: Kari Allan Birthdate 1970 Date of evaluation: 08/16/2023 ED Provider: Renata Colindres MD CHIEF COMPLAINT No chief complaint on file. HISTORY OF PRESENT ILLNESS (Location/Symptom, Timing/Onset, Context/Setting, Quality, Duration, Modifying Factors, Severity) Note limiting factors. I wore appropriate PPE for the entirety of this encounter. HPI Kari Allan is a 52 y.o. who presents to the emergency department with chief complaint of right hip pain abdominal pain patient is very poor historian I tried calling his family but was unable to get in touch with anyone he has a history of anoxic brain injury and alcohol abuse. Says that his belly was hurting and some right hip pain but denies trauma or falls no other complaints here Nursing Notes were reviewed. Limitations to history: Outside historians: REVIEW OF SYSTEMS Review of Systems Pertinent positives and negatives as per HPI. PAST MEDICAL HISTORY Past Medical History: Diagnosis Date Alcohol abuse with intoxication (HCC) Anemia Anoxic brain damage (CMS/HCC) (HCC) Anxiety Asthma Convulsion (HCC) COPD (chronic obstructive pulmonary disease) (HCC) Depression DVT (deep venous thrombosis) (HCC) Dysphagia Encephalopathy GERD (gastroesophageal reflux disease) Hepatitis Hypertension Impulse control disorder Insomnia, unspecified Need for assistance with personal care Opioid abuse (HCC) Other symbolic dysfunctions Pancreatitis Psychosis (HCC) PTSD (post-traumatic stress disorder) Solitary lung nodule SURGICAL HISTORY Past Surgical History: Procedure Laterality Date APPENDECTOMY BACK SURGERY 5 vertabrae fused CHOLECYSTECTOMY COLONOSCOPY 2014 CT CHEST ANGIOGRAM W AND/OR WO IV CONTRAST 04/08/2022 CT CHEST ANGIOGRAM W AND/OR WO IV CONTRAST 04/08/[address]22 [facility] [address] IMAGING CYST REMOVAL wrist GASTROSTOMY TUBE PLACEMENT 03/01/2017 UPPER GASTROINTESTINAL ENDOSCOPY 02/16/2017 CURRENT MEDICATIONS Previous Medications ACETAMINOPHEN (TYLENOL) 325 MG TABLET Take 2 tablets by mouth every 6 hours as needed for fever, mild pain (1-3) or moderate pain (4-6). ALBUTEROL SULFATE 108 (90 BASE) MCG/ACT AEROSOL POWDER Inhale 1 puff every 2 hours as needed. APIXABAN (ELIQUIS) 5 MG TABLET Take 5 mg by mouth in the morning and 5 mg before bedtime. BACLOFEN (LIORESAL) 10 MG TABLET Take 10 mg by mouth 3 times daily. BISACODYL (DULCOLAX) 10 MG SUPPOSITORY Insert 10 mg into the rectum Daily as needed for constipation. BISACODYL (DULCOLAX) 5 MG EC TABLET Take 5 mg by mouth Daily as needed. DIVALPROEX SPRINKLE (DEPAKOTE SPRINKLE) [address] CAPSULE Take 500 mg by mouth 3 times daily. ESCITALOPRAM (LEXAPRO) 10 MG TABLET Take 1.5 tablets by mouth daily. FOLIC ACID (FOLVITE) 1 MG TABLET daily. GUAIFENESIN (HUMIBID 3) 400 MG TABLET Take 400 mg by mouth every 8 hours as needed for congestion. IPRATROPIUM-ALBUTEROL (DUO-NEB) 0.5-2.5 MG/3 ML NEBULIZER SOLUTION Inhale 3 mL every 6 hours as needed. LEVETIRACETAM (KEPPRA) 750 MG TABLET Take 1 tablet by mouth in the morning and 1 tablet before bedtime. MAGNESIUM HYDROXIDE (MILK OF MAGNESIA) 400 MG/5ML SUSPENSION Take 30 mL by mouth Daily as needed. MELATONIN 3 MG TABLET 3 mg Nightly as needed. MENTHOL, TOPICAL ANALGESIC, (BIOFREEZE ROLL-ON) 4 % GEL Apply topically every 8 hours as needed. NALTREXONE (DEPADE) 50 MG TABLET Take 50 mg by mouth in the morning. NIRMATRELVIR&RITONAVIR 300/100 (PAXLOVID, 300/100,) 20 X 150 MG & 10 X 100MG TABLET THERAPY PACK Take 3 tablets by mouth in the morning and 3 tablets in the evening. PANTOPRAZOLE (PROTONIX) 40 MG EC TABLET 40 mg 2 times daily. POLYETHYLENE GLYCOL, PEG, 3350 (GLYCOLAX) 17 GM/SCOOP POWDER Take 17 g by mouth daily. PYRIDOXINE (VITAMIN B-6) 25 MG TABLET 25 mg daily. QUETIAPINE (SEROQUEL) 200 MG TABLET 200 mg 2 times daily. THIAMINE (VITAMIN B-1) 100 MG TABLET 100 mg daily. THROAT LOZENGES (COUGH DROPS MENTHOL) LOZENGE Dissolve 1 lozenge in the mouth Once as needed. TRAMADOL (ULTRAM) 50 MG TABLET ALLERGIES Haloperidol and Paregoric FAMILY HISTORY Family History Problem Relation Name Age of Onset Diabetes Mother Diabetes Brother SOCIAL HISTORY Social History Socioeconomic History Marital status: Single Tobacco Use Smoking status: Some Days Packs/day: 2.00 Years: 40.00 Additional pack years: 0.00 Total pack years: 80.00 Types: Cigarettes Smokeless tobacco: Never Vaping Use Vaping Use: Never used Substance and Sexual Activity Alcohol use: Yes Drug use: Not Currently Sexual activity: Not Currently Social Determinants of Health Intimate Partner Violence: Patient Unable To Answer (05/20/2023) Humiliation, Afraid, Rape, and Kick questionnaire Fear of Current or Ex-Partner: Patient unable to answer Emotionally Abused: Patient unable to answer Physically Abused: Patient unable to answer Sexually Abused: Patient unable to answer SCREENINGS PHYSICAL EXAM ED Triage Vitals [08/16/23 0132] Temp Heart Rate Resp BP 37.4 C (99.4 F) 98 17 (!) 118/92 SpO2 Temp src Heart Rate Source Patient Position 94 % -- Monitor -- BP Location FiO2 (%) -- -- Physical Exam Vitals and nursing note reviewed. Constitutional: General: He is not in acute distress. Appearance: He is well-developed. HENT: Head: Normocephalic and atraumatic. Eyes: Conjunctiva/sclera: Conjunctivae normal. Abdominal: General: There is no distension. Palpations: Abdomen is soft. Tenderness: There is no abdominal tenderness. There is no guarding. Musculoskeletal: Comments: Right hip with no pain with logroll range of motion no external skin changes good pulses in the right foot normal strength sensation of the right foot Neurological: Mental Status: He is alert. Psychiatric: Mood and Affect: Mood normal. Behavior: Behavior normal. DIAGNOSTIC RESULTS Procedures/EKG: EKG was reviewed by myself. [facility] RADIOLOGY (Per Emergency Physician): Interpretation per the Radiologist below, if available at the time of this note: CT abdomen pelvis w contrast (Results Pending) XR hip right 2 or 3 views (Results Pending) ED BEDSIDE ULTRASOUND: Performed by ED Physician - none LABS: Labs Reviewed CBC WITH AUTO DIFFERENTIAL COMPREHENSIVE METABOLIC PANEL LIPASE COMPLETE URINALYSIS WITH REFLEX TO CULTURE Narrative: The following orders were created for panel order Urinalysis Complete with reflex to Culture. Procedure Abnormality Status --------- ------ Complete Urinalysis[[id number]] Please view results for these tests on the individual orders. COMPLETE URINALYSIS All other labs were within normal range or not returned as of this dictation. EMERGENCY DEPARTMENT COURSE and DIFFERENTIAL DIAGNOSIS/MDM: Vitals: Vitals: 08/16/23 0132 BP: (!) 118/92 Pulse: 98 Resp: 17 Temp: 37.4 C (99.4 F) SpO2: 94% Weight: 68 kg (150 lb) Height: 1.778 m (5' 10) Patient 52 presenting with right hip pain and abdominal pain patient's poor historian likely secondary to anoxic brain injury sounds like is just began tonight plan to get CT of the abdomen pelvis as well as x-rays of the hip. Suspicion for septic joint as he has no fever and he can range his hip without pain he is neurovascularly intact in the right leg and no skin changes no history of trauma but again he is a poor historian and try calling his family to get more history but nobody answered. Exam is largely benign plan to check labs including a troponin and get a CT to make sure does not interested abdominal pathology dispo pending Diagnoses as of 08/16/23 0558 Abdominal pain, unspecified abdominal location Medications - No data to display REVAL: Work appears benign I spoke with the nurse at the facility he came from so they did start with some testicular pain and then back and abdominal pain and pain to the right hip. I reevaluated the patient has no abdominal pain he is vomiting now. Vitals remained stable he has no reproducible testicular pain at this time he has no testicle pain he tells manage no scrotal swelling or cellulitis or abnormality on his exam. Will treat the nausea with Zofran and if he is feeling better tolerating p.o. anticipate discharge. Troponins within normal limits CRITICAL CARE TIME CONSULTS: None PROCEDURES: Unless otherwise noted below, none Procedures Patients symptoms are consistent with sepsis, severe sepsis, or septic shock (If yes use .sepsiscoremeasure): no FINAL IMPRESSION No diagnosis found. DISPOSITION PATIENT REFERRED TO: No follow-up provider specified. DISCHARGE MEDICATIONS: New Prescriptions No medications on file (Comment: Please note this report has been produced using speech recognition software and may contain errors related to that system including errors in grammar, punctuation, and spelling, as well as words and phrases that may be inappropriate. If there are any questions or concerns please feel free to contact the dictating provider for clarification.) Renata Colindres MD (electronically signed) Emergency Medicine Provider Renata Colindres MD 08/16/23 0216 Renata Colindres MD 08/16/23 0613 [facility] 08-06-2023 Telephone encounter Note Jeannine with [facility] called to r/s DIRECTOR OF AUDIOLOGY appt in [facility] location. Rescheduled very first available 10/27/23. [facility] 08-06-2023 Miscellaneous Notes Jeannine with [facility] called to r/s DIRECTOR OF AUDIOLOGY appt in [facility] location. Rescheduled very first available 10/27/23. documented in this encounter [facility] 08-05-2023 History of Present illness Narrative Patient had not had follow up with Dr Rubio for renal mass Jeannine at [facility] called and notified that patient had not had follow up for renal mass. Jeannine states she will call office to schedule. Number given to Jeannine to follow up documented in this encounter [facility] 06-22-2023 Telephone encounter Note Talked to Rossy Carver about Kari's US - she said that she will get it done - I told her that it had to be done before his appt on 07.14.[address] Rubio - She said she would take care of it. Lt [facility] 06-22-2023 Miscellaneous Notes Talked to Rossy Mehul about Kari's US - she said that she will get it done - I told her that it had to be done before his appt on 07.14.[address] Rubio - She said she would take care of it. Lt LM for Jeannine to call office to get Kari scheduled for an US. LT Spoke to Jeannine at number listed below. Sched with Dr Rubio in [place] 07/14/23. Per Qamar this is a renal cyst please go ahead and schedule patient. Thanks! Forwarding to Leslie Guerrero Name of Caller: Jeannine Contact Reason for Appointment: Pt is is needing a DIRECTOR OF AUDIOLOGY appt for a Mass on kidney Office Name: [facility] Medication Refills need, if any: NA Medication Name: NA Called patient at contact number listed which is the voicemail for someone else. I left a message for patient to return call to schedule appointment with DEANNE. Thanks! Reviewed the CT finding that patient just had in the emergency department. The left kidney has what appears to be a renal cyst, not a renal mass. Recommend patient be scheduled with DEANNE for new patient appointment for left renal cyst. Renal ultrasound prior, order is in. Jeannine, needle maker with [facility], called to schedule DIRECTOR OF AUDIOLOGY appt for renal mass. I advised Jeannine our office would reach out to them to schedule appt for pt. Jeannine left call back number of [phone]. documented in this encounter [facility] 06-09-2023 Telephone encounter Note Facility called office to confirm d/t/l of upcoming appointment. [facility] 06-09-2023 Miscellaneous Notes Facility called office to confirm d/t/l of upcoming appointment. documented in this encounter [facility] 06-07-2023 Emergency department Note Report called to [facility] RN, ready for patient to return. All questions have been answered Madalyn Salmon RN 06/07/232099 [facility] 06-07-2023 Emergency department Note Report called to SNF RN, ready for patient to return. All questions have been answered Madalyn Salmon RN 06/07/232099 Physician's ambulance arrives at this time to transport patient to SNF Madalyn Salmon RN 06/07/232055 Dinner tray ordered for patient at this time Madalyn Salmon RN 06/07/23 180 67cc urine noted on bladder scan Madlayn Salmon RN 06/07/23 170 EMERGENCY DEPARTMENT ENCOUNTER Pt Name: Kari Allan Birthdate 1970 Date of evaluation: 06/07/2023 ED Provider: JYOTI Harris CNP This patient was seen in conjunction with Dr. Maravilla CHIEF COMPLAINT Chief Complaint Patient presents with Altered Mental Status Patient presents to ED via EMS from SNF for altered mental status. Per facility staff, patient is normally A&Ox2 at baseline, states patient has been more confused and verbally aggressive x 1 week after discharge from the hospital. Patient was recently started on Tramadol, facility states they are not sure if the medication change is affecting patient's behavior. Patient A&Ox2 on arrival to ED. Patient complains of abdominal pain HISTORY OF PRESENT ILLNESS (Location/Symptom, Timing/Onset, Context/Setting, Quality, Duration, Modifying Factors, Severity) Note limiting factors. I wore appropriate PPE for the entirety of this encounter. HPI Kari Allan is a 52 y.o. who presents to the emergency department with chief complaint of altered mental status, patient resides in an extended care facility currently he allegedly suffered a traumatic brain injury or an anoxic brain injury he had a seizure that lasted a long time, and suffered a brain injury from this. He also has a history of alcohol use disorder opioid use disorder, has increasing confusion his sister works at the extended care facility he resides at and has become concerned that he may have a brain mass because he has a history of a renal mass. No falls or trauma. He was recently started on tramadol and they are concerned that this is affecting the patient he has a history of seizure disorder he is on Keppra. Nursing Notes were reviewed. Limitations to history: None Outside historians: None REVIEW OF SYSTEMS Review of Systems Constitutional: Negative for activity change, appetite change, chills and fever. HENT: Negative for congestion, nosebleeds, postnasal drip, sore throat and trouble swallowing. Eyes: Negative for pain and visual disturbance. Respiratory: Negative for cough and shortness of breath. Cardiovascular: Negative for chest pain. Gastrointestinal: Negative for abdominal pain, nausea and vomiting. Genitourinary: Negative for dysuria, flank pain, hematuria, penile discharge, scrotal swelling and testicular pain. Musculoskeletal: Negative for arthralgias, back pain and myalgias. Skin: Negative for rash and wound. Neurological: Negative for dizziness, syncope, weakness and light-headedness. Psychiatric/Behavioral: Positive for agitation, confusion and sleep disturbance. Negative for dysphoric mood and hallucinations. The patient is hyperactive. The patient is not nervous/anxious. All other systems reviewed and are negative. Pertinent positives and negatives as per HPI. PAST MEDICAL HISTORY Past Medical History: Diagnosis Date Alcohol abuse with intoxication (HCC) Anemia Anoxic brain damage (CMS/HCC) (HCC) Anxiety Asthma Convulsion (HCC) COPD (chronic obstructive pulmonary disease) (HCC) Depression DVT (deep venous thrombosis) (HCC) Dysphagia Encephalopathy GERD (gastroesophageal reflux disease) Hepatitis Hypertension Impulse control disorder Insomnia, unspecified Need for assistance with personal care Opioid abuse (HCC) Other symbolic dysfunctions Pancreatitis Psychosis (HCC) PTSD (post-traumatic stress disorder) Solitary lung nodule SURGICAL HISTORY Past Surgical History: Procedure Laterality Date APPENDECTOMY BACK SURGERY 5 vertabrae fused CHOLECYSTECTOMY COLONOSCOPY 2014 CT CHEST ANGIOGRAM W AND/OR WO IV CONTRAST 04/08/2022 CT CHEST ANGIOGRAM W AND/OR WO IV CONTRAST 04/08/[address] [facility] [address] IMAGING CYST REMOVAL wrist GASTROSTOMY TUBE PLACEMENT 03/01/2017 UPPER GASTROINTESTINAL ENDOSCOPY 02/16/2017 CURRENT MEDICATIONS Previous Medications ACETAMINOPHEN (TYLENOL) 325 MG TABLET Take 2 tablets by mouth every 6 hours as needed for fever, mild pain (1-3) or moderate pain (4-6). ALBUTEROL SULFATE 108 (90 BASE) MCG/ACT AEROSOL POWDER Inhale 1 puff every 2 hours as needed. APIXABAN (ELIQUIS) 5 MG TABLET Take 5 mg by mouth in the morning and 5 mg before bedtime. BACLOFEN (LIORESAL) 10 MG TABLET Take 10 mg by mouth 3 times daily. BISACODYL (DULCOLAX) 10 MG SUPPOSITORY Insert 10 mg into the rectum Daily as needed for constipation. BISACODYL (DULCOLAX) 5 MG EC TABLET Take 5 mg by mouth Daily as needed. DIVALPROEX SPRINKLE (DEPAKOTE SPRINKLE) [address] CAPSULE Take 500 mg by mouth 3 times daily. ESCITALOPRAM (LEXAPRO) 10 MG TABLET Take 1.5 tablets by mouth daily. FOLIC ACID (FOLVITE) 1 MG TABLET daily. GUAIFENESIN (HUMIBID 3) 400 MG TABLET Take 400 mg by mouth every 8 hours as needed for congestion. IPRATROPIUM-ALBUTEROL (DUO-NEB) 0.5-2.5 MG/3 ML NEBULIZER SOLUTION Inhale 3 mL every 6 hours as needed. LEVETIRACETAM (KEPPRA) 750 MG TABLET Take 1 tablet by mouth in the morning and 1 tablet before bedtime. MAGNESIUM HYDROXIDE (MILK OF MAGNESIA) 400 MG/5ML SUSPENSION Take 30 mL by mouth Daily as needed. MELATONIN 3 MG TABLET 3 mg Nightly as needed. MENTHOL, TOPICAL ANALGESIC, (BIOFREEZE ROLL-ON) 4 % GEL Apply topically every 8 hours as needed. NALTREXONE (DEPADE) 50 MG TABLET Take 50 mg by mouth in the morning. NIRMATRELVIR&RITONAVIR 300/100 (PAXLOVID, 300/100,) 20 X 150 MG & 10 X 100MG TABLET THERAPY PACK Take 3 tablets by mouth in the morning and 3 tablets in the evening. PANTOPRAZOLE (PROTONIX) 40 MG EC TABLET 40 mg 2 times daily. POLYETHYLENE GLYCOL, PEG, 3350 (GLYCOLAX) 17 GM/SCOOP POWDER Take 17 g by mouth daily. PYRIDOXINE (VITAMIN B-6) 25 MG TABLET 25 mg daily. QUETIAPINE (SEROQUEL) 200 MG TABLET 200 mg 2 times daily. THIAMINE (VITAMIN B-1) 100 MG TABLET 100 mg daily. THROAT LOZENGES (COUGH DROPS MENTHOL) LOZENGE Dissolve 1 lozenge in the mouth Once as needed. ALLERGIES Haloperidol and Paregoric FAMILY HISTORY Family History Problem Relation Name Age of Onset Diabetes Mother Diabetes Brother SOCIAL HISTORY Social History Socioeconomic History Marital status: Single Tobacco Use Smoking status: Some Days Packs/day: 2.00 Years: 30.00 Additional pack years: 0.00 Total pack years: 60.00 Types: Cigarettes Smokeless tobacco: Never Vaping Use Vaping Use: Never used Substance and Sexual Activity Alcohol use: Yes Drug use: Not Currently Sexual activity: Not Currently Social Determinants of Health Intimate Partner Violence: Patient Unable To Answer (05/20/2023) Humiliation, Afraid, Rape, and Kick questionnaire Fear of Current or Ex-Partner: Patient unable to answer Emotionally Abused: Patient unable to answer Physically Abused: Patient unable to answer Sexually Abused: Patient unable to answer SCREENINGS Ariela Coma Scale Best Eye Response: Spontaneous Best Verbal Response: Confused Best Motor Response: Follows commands Ariela Coma Scale Score: 14 PHYSICAL EXAM ED Triage Vitals [06/07/23 1237] Temp Heart Rate Resp BP 36.5 C (97.7 F) 97 18 112/79 SpO2 Temp src Heart Rate Source Patient Position 97 % -- -- -- BP Location FiO2 (%) -- -- Physical Exam Vitals and nursing note reviewed. Constitutional: General: He is not in acute distress. Appearance: Normal appearance. He is not ill-appearing or toxic-appearing. HENT: Head: Normocephalic and atraumatic. Right Ear: External ear normal. Left Ear: External ear normal. Mouth/Throat: Mouth: Mucous membranes are moist. Pharynx: Oropharynx is clear. Eyes: Extraocular Movements: Extraocular movements intact. Conjunctiva/sclera: Conjunctivae normal. Pupils: Pupils are equal, round, and reactive to light. Cardiovascular: Rate and Rhythm: Normal rate and regular rhythm. Pulses: Normal pulses. Heart sounds: Normal heart sounds. Pulmonary: Effort: Pulmonary effort is normal. No respiratory distress. Breath sounds: Normal breath sounds. No stridor. No wheezing or rhonchi. Abdominal: Comments: The abdomen is soft, nondistended and nontender. There is no rebound tenderness or guarding. Bowel sounds are normal. Musculoskeletal: General: No swelling, tenderness, deformity or signs of injury. Normal range of motion. Cervical back: Normal range of motion and neck supple. No rigidity or tenderness. Lymphadenopathy: Cervical: No cervical adenopathy. Skin: General: Skin is warm and dry. Capillary Refill: Capillary refill takes less than 2 seconds. Coloration: Skin is not jaundiced or pale. Findings: No bruising or erythema. Neurological: Mental Status: He is alert. Comments: To self only, confused to time and place, speech is clear, moves all 4 extremities no strength or sensory deficits noted in the extremities. Psychiatric: Mood and Affect: Mood normal. DIAGNOSTIC RESULTS Procedures/EKG: EKG was reviewed by myself. Physician EKG interpretation can be found in [facility] RADIOLOGY (Per Emergency Physician): Interpretation per the Radiologist below, if available at the time of this note: XR lumbar spine 2 or 3 views Final Result 1. No acute osseous abnormality. 2. Postsurgical and degenerative change, similar to comparison. Report Dictated on Electronically Signed By: Edgar Peguero MD Electronically Signed Date/Time: 06/07/2023 5:[address] head wo IV contrast Final Result 1. No acute intracranial abnormality. 2. Mild maxillary sinusitis. Report Dictated on Electronically Signed By: Judah Thompson MD Electronically Signed Date/Time: 06/07/2023 3:34 PM EST XR chest 1 view Final Result No acute abnormality Report Dictated on Electronically Signed By: Benito Herrera MD Electronically Signed Date/Time: 06/07/2023 2:11 PM EST ED BEDSIDE ULTRASOUND: Performed by ED Physician - none LABS: Labs Reviewed COMPREHENSIVE METABOLIC PANEL - Abnormal Result Value SODIUM 139 POTASSIUM 3.8 CHLORIDE 99 CARBON DIOXIDE 28 ANION GAP 11 UREA NITROGEN 6 (*) CREATININE 1.06 GLUCOSE 147 (*) CALCIUM 9.4 AST (SGOT) 41 ALT 30 ALKALINE PHOSPHATASE 251 (*) ALBUMIN 4.1 BILIRUBIN, TOTAL 0.7 TOTAL PROTEIN 7.8 eGFR 83.4 AMMONIA - Abnormal AMMONIA <9 (*) CBC WITH AUTO DIFFERENTIAL - Abnormal Auto WBC 6.1 RBC 4.49 Hemoglobin 14.3 Hematocrit 42.0 MCV 93.5 MCH 31.8 MCHC 34.0 RDW 14.4 Platelets 266 MPV 6.9 (*) nRBC 0.0 Neutrophils Relative 44.3 Lymphocytes Relative 37.4 Monocytes Relative 10.4 (*) Eosinophils Relative 5.9 Basophils Relative 2.0 Neutrophils Absolute 2.7 Lymphocytes Absolute 2.3 Monocytes Absolute 0.6 Eosinophils Absolute 0.4 Basophils Absolute 0.1 LIPASE - Normal LIPASE 34 TROPONIN I - Normal TROPONIN I <0.012 Narrative: Patients with high levels of Biotin oral intake (ie >5 mg/day) may have falsely decreased Troponin levels. ETHANOL - Normal ETHANOL IN SER/PLAS <0.010 Narrative: NOTE: This result is for medical treatment only. Analysis performed using non-forensic procedures. COMPLETE URINALYSIS WITH REFLEX TO CULTURE Narrative: The following orders were created for panel order Urinalysis complete with reflex to Culture. Procedure Abnormality Status --------- ------ Complete Urinalysis[[id number]] Please view results for these tests on the individual orders. COMPLETE URINALYSIS DRUGS OF ABUSE LEVETIRACETAM LEVEL All other labs were within normal range or not returned as of this dictation. EMERGENCY DEPARTMENT COURSE and DIFFERENTIAL DIAGNOSIS/MDM: Vitals: Vitals: 06/07/23 1237 BP: 112/79 Pulse: 97 Resp: 18 Temp: 36.5 C (97.7 F) SpO2: 97% Weight: 99.8 kg (220 lb) Height: 1.778 m (5' 10) ED Course as of 06/07/231943Jun 07, 2023 1755 67cc on bladder scan [SP] 175 Patient was discussed with who is agreeable with plan to continue treatment and evaluation at [facility] facility. [SP] 175 Auto WBC: 6.1 [SP] 1755 HEMOGLOBIN: 14.3 [SP] 1755 eGFR: 83.4 [SP] 1755 ALT - QUEST: 30 [SP] 1755 BILIRUBIN, TOTAL - [facility]: 0.7 [SP] 175 LIPASE: 34 [SP] 175 TROPONIN I: <0.012 [SP] 175 ETHANOL IN SER/PLAS: <0.010 [SP] 175 CT head wo IV contrast IMPRESSION: 1. No acute intracranial abnormality. 2. Mild maxillary sinusitis. [SP] 175 XR chest 1 view IMPRESSION: No acute abnormality [SP] 175 XR lumbar spine 2 or 3 views 1. No acute osseous abnormality. 2. Postsurgical and degenerative change, similar to comparison. [SP] 1943 Bacteria, Urine: Negative [SP] ED Course User Index [SP] James Maravilla MD Diagnoses as of 06/07/231943 Altered mental status, unspecified altered mental status type Acute midline low back pain without sciatica Encephalopathy The patient presented with chief complaint of with chief complaint of altered mental status, patient resides in an extended care facility currently he allegedly suffered a traumatic brain injury or an anoxic brain injury he had a seizure that lasted a long time, and suffered a brain injury from this. He also has a history of alcohol use disorder opioid use disorder, has increasing confusion his sister works at the extended care facility he resides at and has become concerned that he may have a brain mass because he has a history of a renal mass. No falls or trauma. He was recently started on tramadol and they are concerned that this is affecting the patient he has a history of seizure disorder he is on Keppra.. The differential diagnosis associated with this patient's presentation includes encephalopathy, urinary tract infection, brain mass, CVA, electrolyte disturbance, dehydration. Our workup consisted of ordering/reviewing: CBC, CMP, lipase, ammonia, urine drug screen, ethanol, urinalysis, CT head, chest x-ray. Diagnostic tests considered but not performed: none To aid in management, I performed an independent interpretation of EKG(s) EKG per my interpretation shows sinus rhythm with a rate of [address] elevation or depression with normal intervals Xray(s) chest x-ray per my interpretation shows normal mediastinum normal cardiac silhouette no infiltrates or effusions. I also reviewed external records from [facility]. I discussed their care with Dr. Dr. Antonella Marrero who takes care of the patient at the [facility] patient did have a couple falls x-rays are negative of the lumbar spine, okay to discharge back to [facility] if urine is unremarkable they would likely stop the tramadol and see if that helps his encephalopathy, I do not believe there is any cause for admission to [facility] or [facility] at this time.. Consideration for escalation of care with: none. The patient will be Discharged. Patient is in agreement with this plan. Medications oxyCODONE-acetaminophen (Percocet) 5-325 MG per tablet 1 tablet (1 tablet Oral Given 06/07/23 3812) REVAL: CRITICAL CARE TIME None CONSULTS: None PROCEDURES: Unless otherwise noted below, none Procedures Patients symptoms are consistent with sepsis, severe sepsis, or septic shock (If yes use .sepsiscoremeasure): no FINAL IMPRESSION 1. Altered mental status, unspecified altered mental status type 2. Acute midline low back pain without sciatica 3. Encephalopathy DISPOSITION Discharge 06/07/2023 05:30:18 PM PATIENT REFERRED TO: Antonella Marrero [address] [facility] [id number] In 1 day DISCHARGE MEDICATIONS: New Prescriptions No medications on file (Comment: Please note this report has been produced using speech recognition software and may contain errors related to that system including errors in grammar, punctuation, and spelling, as well as words and phrases that may be inappropriate. If there are any questions or concerns please feel free to contact the dictating provider for clarification.) JYOTI Harris CNP (electronically signed) Emergency Medicine Provider JYOTI Harris CNP 06/07/23 175 Bed: 23 Expected date: Expected time: Means of arrival: Comments: Physicians Caitlyn Zamora RN 06/07/23 1230 documented in this encounter [facility] 06-07-2023 Emergency department Note Physician's ambulance arrives at this time to transport patient to [facility] Madalyn Salmon RN 06/07/232055 [facility] 06-07-2023 Emergency department Note Dinner tray ordered for patient at this time Madalyn Salmon RN 06/07/23 180 [facility] 06-07-2023 Hospital Discharge instructions JYOTI Harris CNP - 06/07/2023 5:[address] Marrero will likely stop the Tramadol The following attachments cannot be sent through Care Everywhere.Low Back Pain Discharge Instructions (Lebanese)Altered Mental Status Discharge Instructions (Lebanese)documented in this encounter [facility] 06-07-2023 Emergency department Note 67cc urine noted on bladder scan Madalyn Salmon RN 06/07/23 1706 [facility] 06-07-2023 Note NOTE: This result is for medical treatment only. Analysis performed using non-forensic procedures. [facility] 06-07-2023 History of Present illness Narrative Reviewed chart and follow up appointment made by office documented in this encounter [facility] 06-07-2023 Telephone encounter Note LM for [facility] to call office to get Kari scheduled for an US. LT [facility] 06-07-2023 Miscellaneous Notes LM for [facility] to call office to get Kari scheduled for an US. LT Spoke to [facility] at number listed below. Sched with Dr Rubio in [place] 07/14/23. Per Qamar this is a renal cyst please go ahead and schedule patient. Thanks! Forwarding to Leslie Guerrero Name of Caller: Jeannine Contact Reason for Appointment: Pt is is needing a DIRECTOR OF AUDIOLOGY appt for a Mass on kidney Office Name: [facility] Medication Refills need, if any: NA Medication Name: NA Called patient at contact number listed which is the voicemail for someone else. I left a message for patient to return call to schedule appointment with DEANNE. Thanks! Reviewed the CT finding that patient just had in the emergency department. The left kidney has what appears to be a renal cyst, not a renal mass. Recommend patient be scheduled with DEANNE for new patient appointment for left renal cyst. Renal ultrasound prior, order is in. Jeannine, needle maker with [facility], called to schedule DIRECTOR OF AUDIOLOGY appt for renal mass. I advised Jeannine our office would reach out to them to schedule appt for pt. Jeannine left call back number of [phone]. documented in this encounter [facility] 06-07-2023 Emergency department Note Bed: 23 Expected date: Expected time: Means of arrival: Comments: Physicians Caitlyn Zamora RN 06/07/23 1230 [facility] 06-07-2023 Physician Emergency department Note EMERGENCY DEPARTMENT ENCOUNTER Pt Name: Kari Allan Birthdate 1970 Date of evaluation: 06/07/2023 ED Provider: Billy Gan APRN - TUBULAR STOCK GLASS BULB MACHINE FORMER This patient was seen in conjunction with Dr. Maravilla CHIEF COMPLAINT Chief Complaint Patient presents with Altered Mental Status Patient presents to ED via EMS from SNF for altered mental status. Per facility staff, patient is normally A&Ox2 at baseline, states patient has been more confused and verbally aggressive x 1 week after discharge from the hospital. Patient was recently started on Tramadol, facility states they are not sure if the medication change is affecting patient's behavior. Patient A&Ox2 on arrival to ED. Patient complains of abdominal pain HISTORY OF PRESENT ILLNESS (Location/Symptom, Timing/Onset, Context/Setting, Quality, Duration, Modifying Factors, Severity) Note limiting factors. I wore appropriate PPE for the entirety of this encounter. HPI Kari Allan is a 52 y.o. who presents to the emergency department with chief complaint of altered mental status, patient resides in an extended care facility currently he allegedly suffered a traumatic brain injury or an anoxic brain injury he had a seizure that lasted a long time, and suffered a brain injury from this. He also has a history of alcohol use disorder opioid use disorder, has increasing confusion his sister works at the extended care facility he resides at and has become concerned that he may have a brain mass because he has a history of a renal mass. No falls or trauma. He was recently started on tramadol and they are concerned that this is affecting the patient he has a history of seizure disorder he is on Keppra. Nursing Notes were reviewed. Limitations to history: None Outside historians: None REVIEW OF SYSTEMS Review of Systems Constitutional: Negative for activity change, appetite change, chills and fever. HENT: Negative for congestion, nosebleeds, postnasal drip, sore throat and trouble swallowing. Eyes: Negative for pain and visual disturbance. Respiratory: Negative for cough and shortness of breath. Cardiovascular: Negative for chest pain. Gastrointestinal: Negative for abdominal pain, nausea and vomiting. Genitourinary: Negative for dysuria, flank pain, hematuria, penile discharge, scrotal swelling and testicular pain. Musculoskeletal: Negative for arthralgias, back pain and myalgias. Skin: Negative for rash and wound. Neurological: Negative for dizziness, syncope, weakness and light-headedness. Psychiatric/Behavioral: Positive for agitation, confusion and sleep disturbance. Negative for dysphoric mood and hallucinations. The patient is hyperactive. The patient is not nervous/anxious. All other systems reviewed and are negative. Pertinent positives and negatives as per HPI. PAST MEDICAL HISTORY Past Medical History: Diagnosis Date Alcohol abuse with intoxication (HCC) Anemia Anoxic brain damage (CMS/HCC) (HCC) Anxiety Asthma Convulsion (HCC) COPD (chronic obstructive pulmonary disease) (HCC) Depression DVT (deep venous thrombosis) (HCC) Dysphagia Encephalopathy GERD (gastroesophageal reflux disease) Hepatitis Hypertension Impulse control disorder Insomnia, unspecified Need for assistance with personal care Opioid abuse (HCC) Other symbolic dysfunctions Pancreatitis Psychosis (HCC) PTSD (post-traumatic stress disorder) Solitary lung nodule SURGICAL HISTORY Past Surgical History: Procedure Laterality Date APPENDECTOMY BACK SURGERY 5 vertabrae fused CHOLECYSTECTOMY COLONOSCOPY 2014 CT CHEST ANGIOGRAM W AND/OR WO IV CONTRAST 04/08/2022 CT CHEST ANGIOGRAM W AND/OR WO IV CONTRAST 04/08/[address]22 [facility] [address] IMAGING CYST REMOVAL wrist GASTROSTOMY TUBE PLACEMENT 03/01/2017 UPPER GASTROINTESTINAL ENDOSCOPY 02/16/2017 CURRENT MEDICATIONS Previous Medications ACETAMINOPHEN (TYLENOL) 325 MG TABLET Take 2 tablets by mouth every 6 hours as needed for fever, mild pain (1-3) or moderate pain (4-6). ALBUTEROL SULFATE 108 (90 BASE) MCG/ACT AEROSOL POWDER Inhale 1 puff every 2 hours as needed. APIXABAN (ELIQUIS) 5 MG TABLET Take 5 mg by mouth in the morning and 5 mg before bedtime. BACLOFEN (LIORESAL) 10 MG TABLET Take 10 mg by mouth 3 times daily. BISACODYL (DULCOLAX) 10 MG SUPPOSITORY Insert 10 mg into the rectum Daily as needed for constipation. BISACODYL (DULCOLAX) 5 MG EC TABLET Take 5 mg by mouth Daily as needed. DIVALPROEX SPRINKLE (DEPAKOTE SPRINKLE) [address] CAPSULE Take 500 mg by mouth 3 times daily. ESCITALOPRAM (LEXAPRO) 10 MG TABLET Take 1.5 tablets by mouth daily. FOLIC ACID (FOLVITE) 1 MG TABLET daily. GUAIFENESIN (HUMIBID 3) 400 MG TABLET Take 400 mg by mouth every 8 hours as needed for congestion. IPRATROPIUM-ALBUTEROL (DUO-NEB) 0.5-2.5 MG/3 ML NEBULIZER SOLUTION Inhale 3 mL every 6 hours as needed. LEVETIRACETAM (KEPPRA) 750 MG TABLET Take 1 tablet by mouth in the morning and 1 tablet before bedtime. MAGNESIUM HYDROXIDE (MILK OF MAGNESIA) 400 MG/5ML SUSPENSION Take 30 mL by mouth Daily as needed. MELATONIN 3 MG TABLET 3 mg Nightly as needed. MENTHOL, TOPICAL ANALGESIC, (BIOFREEZE ROLL-ON) 4 % GEL Apply topically every 8 hours as needed. NALTREXONE (DEPADE) 50 MG TABLET Take 50 mg by mouth in the morning. NIRMATRELVIR&RITONAVIR 300/100 (PAXLOVID, 300/100,) 20 X 150 MG & 10 X 100MG TABLET THERAPY PACK Take 3 tablets by mouth in the morning and 3 tablets in the evening. PANTOPRAZOLE (PROTONIX) 40 MG EC TABLET 40 mg 2 times daily. POLYETHYLENE GLYCOL, PEG, 3350 (GLYCOLAX) 17 GM/SCOOP POWDER Take 17 g by mouth daily. PYRIDOXINE (VITAMIN B-6) 25 MG TABLET 25 mg daily. QUETIAPINE (SEROQUEL) 200 MG TABLET 200 mg 2 times daily. THIAMINE (VITAMIN B-1) 100 MG TABLET 100 mg daily. THROAT LOZENGES (COUGH DROPS MENTHOL) LOZENGE Dissolve 1 lozenge in the mouth Once as needed. ALLERGIES Haloperidol and Paregoric FAMILY HISTORY Family History Problem Relation Name Age of Onset Diabetes Mother Diabetes Brother SOCIAL HISTORY Social History Socioeconomic History Marital status: Single Tobacco Use Smoking status: Some Days Packs/day: 2.00 Years: 30.00 Additional pack years: 0.00 Total pack years: 60.00 Types: Cigarettes Smokeless tobacco: Never Vaping Use Vaping Use: Never used Substance and Sexual Activity Alcohol use: Yes Drug use: Not Currently Sexual activity: Not Currently Social Determinants of Health Intimate Partner Violence: Patient Unable To Answer (05/20/2023) Humiliation, Afraid, Rape, and Kick questionnaire Fear of Current or Ex-Partner: Patient unable to answer Emotionally Abused: Patient unable to answer Physically Abused: Patient unable to answer Sexually Abused: Patient unable to answer SCREENINGS Marrero Coma Scale Best Eye Response: Spontaneous Best Verbal Response: Confused Best Motor Response: Follows commands Ariela Coma Scale Score: 14 PHYSICAL EXAM ED Triage Vitals [06/07/23 1237] Temp Heart Rate Resp BP 36.5 C (97.7 F) 97 18 112/79 SpO2 Temp src Heart Rate Source Patient Position 97 % -- -- -- BP Location FiO2 (%) -- -- Physical Exam Vitals and nursing note reviewed. Constitutional: General: He is not in acute distress. Appearance: Normal appearance. He is not ill-appearing or toxic-appearing. HENT: Head: Normocephalic and atraumatic. Right Ear: External ear normal. Left Ear: External ear normal. Mouth/Throat: Mouth: Mucous membranes are moist. Pharynx: Oropharynx is clear. Eyes: Extraocular Movements: Extraocular movements intact. Conjunctiva/sclera: Conjunctivae normal. Pupils: Pupils are equal, round, and reactive to light. Cardiovascular: Rate and Rhythm: Normal rate and regular rhythm. Pulses: Normal pulses. Heart sounds: Normal heart sounds. Pulmonary: Effort: Pulmonary effort is normal. No respiratory distress. Breath sounds: Normal breath sounds. No stridor. No wheezing or rhonchi. Abdominal: Comments: The abdomen is soft, nondistended and nontender. There is no rebound tenderness or guarding. Bowel sounds are normal. Musculoskeletal: General: No swelling, tenderness, deformity or signs of injury. Normal range of motion. Cervical back: Normal range of motion and neck supple. No rigidity or tenderness. Lymphadenopathy: Cervical: No cervical adenopathy. Skin: General: Skin is warm and dry. Capillary Refill: Capillary refill takes less than 2 seconds. Coloration: Skin is not jaundiced or pale. Findings: No bruising or erythema. Neurological: Mental Status: He is alert. Comments: To self only, confused to time and place, speech is clear, moves all 4 extremities no strength or sensory deficits noted in the extremities. Psychiatric: Mood and Affect: Mood normal. DIAGNOSTIC RESULTS Procedures/EKG: EKG was reviewed by myself. Physician EKG interpretation can be found in [facility] RADIOLOGY (Per Emergency Physician): Interpretation per the Radiologist below, if available at the time of this note: XR lumbar spine 2 or 3 views Final Result 1. No acute osseous abnormality. 2. Postsurgical and degenerative change, similar to comparison. Report Dictated on Electronically Signed By: Edgar Peguero MD Electronically Signed Date/Time: 06/07/2023 5:[address] head wo IV contrast Final Result 1. No acute intracranial abnormality. 2. Mild maxillary sinusitis. Report Dictated on Electronically Signed By: Judah Thompson MD Electronically Signed Date/Time: 06/07/2023 3:34 PM EST XR chest 1 view Final Result No acute abnormality Report Dictated on Electronically Signed By: Benito Herrera MD Electronically Signed Date/Time: 06/07/2023 2:11 PM EST ED BEDSIDE ULTRASOUND: Performed by ED Physician - none LABS: Labs Reviewed COMPREHENSIVE METABOLIC PANEL - Abnormal Result Value SODIUM 139 POTASSIUM 3.8 CHLORIDE 99 CARBON DIOXIDE 28 ANION GAP 11 UREA NITROGEN 6 (*) CREATININE 1.06 GLUCOSE 147 (*) CALCIUM 9.4 AST (SGOT) 41 ALT 30 ALKALINE PHOSPHATASE 251 (*) ALBUMIN 4.1 BILIRUBIN, TOTAL 0.7 TOTAL PROTEIN 7.8 eGFR 83.4 AMMONIA - Abnormal AMMONIA <9 (*) CBC WITH AUTO DIFFERENTIAL - Abnormal Auto WBC 6.1 RBC 4.49 Hemoglobin 14.3 Hematocrit 42.0 MCV 93.5 MCH 31.8 MCHC 34.0 RDW 14.4 Platelets 266 MPV 6.9 (*) nRBC 0.0 Neutrophils Relative 44.3 Lymphocytes Relative 37.4 Monocytes Relative 10.4 (*) Eosinophils Relative 5.9 Basophils Relative 2.0 Neutrophils Absolute 2.7 Lymphocytes Absolute 2.3 Monocytes Absolute 0.6 Eosinophils Absolute 0.4 Basophils Absolute 0.1 LIPASE - Normal LIPASE 34 TROPONIN I - Normal TROPONIN I <0.012 Narrative: Patients with high levels of Biotin oral intake (ie >5 mg/day) may have falsely decreased Troponin levels. ETHANOL - Normal ETHANOL IN SER/PLAS <0.010 Narrative: NOTE: This result is for medical treatment only. Analysis performed using non-forensic procedures. COMPLETE URINALYSIS WITH REFLEX TO CULTURE Narrative: The following orders were created for panel order Urinalysis complete with reflex to Culture. Procedure Abnormality Status --------- ------ Complete Urinalysis[[id number]] Please view results for these tests on the individual orders. COMPLETE URINALYSIS DRUGS OF ABUSE LEVETIRACETAM LEVEL All other labs were within normal range or not returned as of this dictation. EMERGENCY DEPARTMENT COURSE and DIFFERENTIAL DIAGNOSIS/MDM: Vitals: Vitals: 06/07/23 1237 BP: 112/79 Pulse: 97 Resp: 18 Temp: 36.5 C (97.7 F) SpO2: 97% Weight: 99.8 kg (220 lb) Height: 1.778 m (5' 10) ED Course as of 06/07/231943Jun 07, 2023 1755 67cc on bladder scan [SP] 1754 Patient was discussed with who is agreeable with plan to continue treatment and evaluation at [facility] facility. [SP] 1755 Auto WBC: 6.1 [SP] 1755 HEMOGLOBIN: 14.3 [SP] 1755 eGFR: 83.4 [SP] 1755 ALT - QUEST: 30 [SP] 1755 BILIRUBIN, TOTAL - [facility]: 0.7 [SP] 1755 LIPASE: 34 [SP] 1755 TROPONIN I: <0.012 [SP] 1756 ETHANOL IN SER/PLAS: <0.010 [SP] 1756 CT head wo IV contrast IMPRESSION: 1. No acute intracranial abnormality. 2. Mild maxillary sinusitis. [SP] 175 XR chest 1 view IMPRESSION: No acute abnormality [SP] 1755 XR lumbar spine 2 or 3 views 1. No acute osseous abnormality. 2. Postsurgical and degenerative change, similar to comparison. [SP] 1943 Bacteria, Urine: Negative [SP] ED Course User Index [SP] James Maravilla MD Diagnoses as of 06/07/231943 Altered mental status, unspecified altered mental status type Acute midline low back pain without sciatica Encephalopathy The patient presented with chief complaint of with chief complaint of altered mental status, patient resides in an extended care facility currently he allegedly suffered a traumatic brain injury or an anoxic brain injury he had a seizure that lasted a long time, and suffered a brain injury from this. He also has a history of alcohol use disorder opioid use disorder, has increasing confusion his sister works at the extended care facility he resides at and has become concerned that he may have a brain mass because he has a history of a renal mass. No falls or trauma. He was recently started on tramadol and they are concerned that this is affecting the patient he has a history of seizure disorder he is on Keppra.. The differential diagnosis associated with this patient's presentation includes encephalopathy, urinary tract infection, brain mass, CVA, electrolyte disturbance, dehydration. Our workup consisted of ordering/reviewing: CBC, CMP, lipase, ammonia, urine drug screen, ethanol, urinalysis, CT head, chest x-ray. Diagnostic tests considered but not performed: none To aid in management, I performed an independent interpretation of EKG(s) EKG per my interpretation shows sinus rhythm with a rate of [address] elevation or depression with normal intervals Xray(s) chest x-ray per my interpretation shows normal mediastinum normal cardiac silhouette no infiltrates or effusions. I also reviewed external records from [facility]. I discussed their care with . Dr. Antonella Marrero who takes care of the patient at the [facility] patient did have a couple falls x-rays are negative of the lumbar spine, okay to discharge back to [facility] if urine is unremarkable they would likely stop the tramadol and see if that helps his encephalopathy, I do not believe there is any cause for admission to [facility] or [facility] at this time.. Consideration for escalation of care with: none. The patient will be Discharged. Patient is in agreement with this plan. Medications oxyCODONE-acetaminophen (Percocet) 5-325 MG per tablet 1 tablet (1 tablet Oral Given 06/07/23 9021) REVAL: CRITICAL CARE TIME None CONSULTS: None PROCEDURES: Unless otherwise noted below, none Procedures Patients symptoms are consistent with sepsis, severe sepsis, or septic shock (If yes use .sepsiscoremeasure): no FINAL IMPRESSION 1. Altered mental status, unspecified altered mental status type 2. Acute midline low back pain without sciatica 3. Encephalopathy DISPOSITION Discharge 06/07/2023 05:30:18 PM PATIENT REFERRED TO: Antonella Marrero [address] [facility] [address] In 1 day DISCHARGE MEDICATIONS: New Prescriptions No medications on file (Comment: Please note this report has been produced using speech recognition software and may contain errors related to that system including errors in grammar, punctuation, and spelling, as well as words and phrases that may be inappropriate. If there are any questions or concerns please feel free to contact the dictating provider for clarification.) JYOTI Harris CNP (electronically signed) Emergency Medicine Provider JYOTI Harris CNP 06/07/23 2598 [facility] 06-07-2023 Telephone encounter Note Spoke to [facility] at number listed below. Sched with Dr Rubio in [place] 07/14/23. [facility] 06-07-2023 Telephone encounter Note Per Qaamr this is a renal cyst please go ahead and schedule patient. Thanks! [facility] 06-07-2023 Telephone encounter Note Forwarding to Leslie Guerrero [facility] 06-04-2023 Telephone encounter Note Name of Caller: Jeannine Contact Reason for Appointment: Pt is is needing a DIRECTOR OF AUDIOLOGY appt for a Mass on kidney Office Name: [facility] Medication Refills need, if any: NA Medication Name: NA [facility] 06-02-2023 Telephone encounter Note Called patient at contact number listed which is the voicemail for someone else. I left a message for patient to return call to schedule appointment with DEANNE. Thanks! [facility] 06-01-2023 Telephone encounter Note Reviewed the CT finding that patient just had in the emergency department. The left kidney has what appears to be a renal cyst, not a renal mass. Recommend patient be scheduled with DEANNE for new patient appointment for left renal cyst. Renal ultrasound prior, order is in. [facility] 06-01-2023 Telephone encounter Note Jeannine, needle maker with [facility] [place], called to schedule DIRECTOR OF AUDIOLOGY appt for renal mass. I advised Jeannine our office would reach out to them to schedule appt for pt. Jeannine left call back number of [phone]. [facility] 05-30-2023 Emergency department Note Report called to [facility] nurse ashlie and advised of pts disposition and discharge. Rudy Gabriel 05/30/23 1659 [facility] 05-30-2023 Emergency department Note Report called to [facility] nurse ashlie and advised of pts disposition and discharge. Rudy Gabriel 05/30/23 1659 Pt presents to er from snf for chronic back pain that is worsening. Pt is aox4 speaking in full sentences. Pt has hx of multiple falls and spinal cage from bulging discs. Pt states pain is 10/10 in lower mid back. Rudy Gabriel 05/30/23 1316 [facility] ED EMERGENCY DEPARTMENT ENCOUNTER Pt Name: Kari Allan Birthdate 1970 Date of evaluation: 05/30/2023 Provider: Fan Marcial MD CHIEF COMPLAINT Chief Complaint Patient presents with Back Pain Pt presents to er from snf for chronic back pain that is worsening. Pt is aox4 speaking in full sentences. Pt has hx of multiple falls and spinal cage from bulging discs. Pt states pain is 10/10 in lower mid back. HISTORY OF PRESENT ILLNESS (Location/Symptom, Timing/Onset,Context/Setting, Quality, Duration, Modifying Factors, Severity) Note limiting factors. Kari Allan is a 52 y.o. male who presents to the emergency department patient brought in via squad. Initially complained of back pain but when I go into the room he is complaining of epigastric abdominal pain. History of alcoholism and pancreatitis. He does have a history of anoxic brain injury convulsion COPD. Multiple medical problems. He reports no bowel or bladder problems. He reports no chest pain. He reports no fevers or chills. No trauma has not fallen. HPI Historian is the patient Nurse's notes for past medical history, surgical history, social history were reviewed. Medications and allergies reviewed. PAST MEDICAL HISTORY Past Medical History: Diagnosis Date Alcohol abuse with intoxication (HCC) Anemia Anoxic brain damage (CMS/HCC) (HCC) Anxiety Asthma Convulsion (HCC) COPD (chronic obstructive pulmonary disease) (HCC) Depression DVT (deep venous thrombosis) (HCC) Dysphagia Encephalopathy GERD (gastroesophageal reflux disease) Hepatitis Hypertension Impulse control disorder Insomnia, unspecified Need for assistance with personal care Opioid abuse (HCC) Other symbolic dysfunctions Pancreatitis Psychosis (HCC) PTSD (post-traumatic stress disorder) Solitary lung nodule SURGICALHISTORY Past Surgical History: Procedure Laterality Date APPENDECTOMY BACK SURGERY 5 vertabrae fused CHOLECYSTECTOMY COLONOSCOPY 2014 CT CHEST ANGIOGRAM W AND/OR WO IV CONTRAST 04/08/2022 CT CHEST ANGIOGRAM W AND/OR WO IV CONTRAST 04/08/[address] [facility] [address] IMAGING CYST REMOVAL wrist GASTROSTOMY TUBE PLACEMENT 03/01/2017 UPPER GASTROINTESTINAL ENDOSCOPY 02/16/2017 CURRENT MEDICATIONS Previous Medications ACETAMINOPHEN (TYLENOL) 325 MG TABLET Take 2 tablets by mouth every 6 hours as needed for fever, mild pain (1-3) or moderate pain (4-6). ALBUTEROL SULFATE 108 (90 BASE) MCG/ACT AEROSOL POWDER Inhale 1 puff every 2 hours as needed. APIXABAN (ELIQUIS) 5 MG TABLET Take 5 mg by mouth in the morning and 5 mg before bedtime. BACLOFEN (LIORESAL) 10 MG TABLET Take 10 mg by mouth 3 times daily. BISACODYL (DULCOLAX) 10 MG SUPPOSITORY Insert 10 mg into the rectum Daily as needed for constipation. BISACODYL (DULCOLAX) 5 MG EC TABLET Take 5 mg by mouth Daily as needed. DIVALPROEX SPRINKLE (DEPAKOTE SPRINKLE) [address] CAPSULE Take 500 mg by mouth 3 times daily. ESCITALOPRAM (LEXAPRO) 10 MG TABLET Take 1.5 tablets by mouth daily. FOLIC ACID (FOLVITE) 1 MG TABLET daily. GUAIFENESIN (HUMIBID 3) 400 MG TABLET Take 400 mg by mouth every 8 hours as needed for congestion. IPRATROPIUM-ALBUTEROL (DUO-NEB) 0.5-2.5 MG/3 ML NEBULIZER SOLUTION Inhale 3 mL every 6 hours as needed. LEVETIRACETAM (KEPPRA) 750 MG TABLET Take 1 tablet by mouth in the morning and 1 tablet before bedtime. MAGNESIUM HYDROXIDE (MILK OF MAGNESIA) 400 MG/5ML SUSPENSION Take 30 mL by mouth Daily as needed. MELATONIN 3 MG TABLET 3 mg Nightly as needed. MENTHOL, TOPICAL ANALGESIC, (BIOFREEZE ROLL-ON) 4 % GEL Apply topically every 8 hours as needed. NALTREXONE (DEPADE) 50 MG TABLET Take 50 mg by mouth in the morning. NIRMATRELVIR&RITONAVIR 300/100 (PAXLOVID, 300/100,) 20 X 150 MG & 10 X 100MG TABLET THERAPY PACK Take 3 tablets by mouth in the morning and 3 tablets in the evening. PANTOPRAZOLE (PROTONIX) 40 MG EC TABLET 40 mg 2 times daily. POLYETHYLENE GLYCOL, PEG, 3350 (GLYCOLAX) 17 GM/SCOOP POWDER Take 17 g by mouth daily. PYRIDOXINE (VITAMIN B-6) 25 MG TABLET 25 mg daily. QUETIAPINE (SEROQUEL) 200 MG TABLET 200 mg 2 times daily. THIAMINE (VITAMIN B-1) 100 MG TABLET 100 mg daily. THROAT LOZENGES (COUGH DROPS MENTHOL) LOZENGE Dissolve 1 lozenge in the mouth Once as needed. Haloperidol and Paregoric FAMILY HISTORY Family History Problem Relation Name Age of Onset Diabetes Mother Diabetes Brother SOCIAL HISTORY Social History Socioeconomic History Marital status: Single Tobacco Use Smoking status: Some Days Packs/day: 2.00 Years: 30.00 Additional pack years: 0.00 Total pack years: 60.00 Types: Cigarettes Smokeless tobacco: Never Vaping Use Vaping Use: Never used Substance and Sexual Activity Alcohol use: Yes Drug use: Not Currently Sexual activity: Not Currently Social Determinants of Health Intimate Partner Violence: Patient Unable To Answer (05/20/2023) Humiliation, Afraid, Rape, and Kick questionnaire Fear of Current or Ex-Partner: Patient unable to answer Emotionally Abused: Patient unable to answer Physically Abused: Patient unable to answer Sexually Abused: Patient unable to answer SCREENINGS PHYSICAL EXAM (up to 7 for level 4, 8 or more for level 5) @EDTRIAGEVSS@ Appropriate PPE including n 95, gown, gloves, goggles where worn when appropriate with this patient. Physical Exam Vital signs reviewed general: Alert and oriented 3 head: Atraumatic eyes: Equal round reactive to light and accommodating, pupils are equal, round and reactive to light and accommodation oropharynx: Clear and well hydrated neck: Supple heart: Regular rate and rhythm, no murmurs lungs: Clear to auscultation bilaterally abdomen: Soft vague mid abdominal tenderness. No rebound or guarding. Nontender, positive bowel sounds, no peritoneal findings. Extremities: Moving all fours, no tenderness. Normal capillary refill. Skin: No rash or lesions -to the exposed skin Back lower paraspinal tenderness no midline tenderness. Strength sensation intact lower extremities. neurologically: Alert and oriented 3, no focal deficit DIAGNOSTIC RESULTS RADIOLOGY: Interpretation per the Radiologist below, if availableat the time of this note: CT abdomen pelvis w contrast Final Result 1. No acute abdominopelvic process identified. 2. Hepatic steatosis, correlate with liver function tests. 3. Stable posterior superior left kidney calcified cystic structure, likely representing partially calcified cyst. Ultrasound may be obtained for further evaluation if indicated. 4. Status post laminectomy and lumbosacral posterior fusion with persistent L5-S1 anterolisthesis. 5. Other chronic and postsurgical findings as discussed. Report Dictated on Electronically Signed By: Antony Thompson MD Electronically Signed Date/Time: 05/30/2023 3:03 PM EST ED BEDSIDE ULTRASOUND: Performed by ED Physician - none LABS: Labs Reviewed COMPREHENSIVE METABOLIC PANEL - Abnormal Result Value SODIUM 138 POTASSIUM 4.0 CHLORIDE 100 CARBON DIOXIDE 28 ANION GAP 10 UREA NITROGEN 7 (*) CREATININE 1.13 GLUCOSE 97 CALCIUM 9.3 AST (SGOT) 31 ALT 28 ALKALINE PHOSPHATASE 138 (*) ALBUMIN 3.7 BILIRUBIN, TOTAL 0.8 TOTAL PROTEIN 7.2 eGFR 77.2 CBC WITH AUTO DIFFERENTIAL - Abnormal Auto WBC 8.2 RBC 4.18 (*) Hemoglobin 13.5 Hematocrit 38.9 (*) MCV 92.9 MCH 32.3 MCHC 34.7 RDW 14.4 Platelets 238 MPV 6.7 (*) nRBC 0.0 Neutrophils Relative 49.9 Lymphocytes Relative 32.9 Monocytes Relative 12.1 (*) Eosinophils Relative 4.0 Basophils Relative 1.1 Neutrophils Absolute 4.1 Lymphocytes Absolute 2.7 Monocytes Absolute 1.0 (*) Eosinophils Absolute 0.3 Basophils Absolute 0.1 LIPASE - Normal LIPASE 58 All other labs were within normal range or not returned as of thisdictation. EMERGENCYDEPARTMENT COURSE and DIFFERENTIAL DIAGNOSIS/MDM: Vitals: Vitals: 05/30/23 1313 05/30/23 1315 BP: 108/87 BP Location: Left arm Patient Position: Sitting Pulse: 104 Temp: 36.7 C (98.1 F) TempSrc: Tympanic SpO2: 100% 100% Medical Decision Making Amount and/or Complexity of Data Reviewed Labs: ordered. Radiology: ordered. Risk Prescription drug management. EMERGENCY DEPARTMENT COURSE and DIFFERENTIAL DIAGNOSIS/MDM: Vitals: Vitals: 05/30/23 1313 05/30/23 1315 BP: 108/87 BP Location: Left arm Patient Position: Sitting Pulse: 104 Temp: 36.7 C (98.1 F) TempSrc: Tympanic SpO2: 100% 100% The patient presented with a chief complaint of abdominal pain. The differential diagnosis associated with this patient's presentation includes bowel obstruction, pancreatitis, electrolyte disturbance, dehydration. Our workup consisted of ordering/reviewing blood work and CT of the abdomen. Will blood work including lipase white blood cell count and sodium potassium. Normal creatinine. Patient be discharged home no signs of bowel obstruction. Follow this doctor in 1 week return if any problems or concerns. Diagnoses as of 05/30/23 1532 Generalized abdominal pain Renal mass Diagnostics considered but not indicated based on history, physical, testing: None External records reviewed: Outpatient records reviewed. Patient was admitted for COVID hypoxia on 05/19/2023. Patient had echo done on 05/17/2023 that shows an EF of 71%. Radiologic diagnostics interpreted by mn: film images such as CT, Ultrasound and MRI are read by the radiologist. Plain radiographic images are visualized and preliminarily interpreted by the emergency physician with the below findings: CT scan(s) CT revealed no acute process does show calcification of the kidney that is outpatient follow-up. Discussions with other clinicians: none Chronic conditions impacting care: Call is him, back pain, disc herniation, GERD, COVID, sleep apnea, encephalopathy, traumatic brain injury Social determinants of health affecting care: Alcoholism and patient smokes Shared decision making: Patient agrees to treatment plan ED Medications managed: Medications iopamidol (Isovue-370) 76 % injection 75 mL (75 mL IntraVENous Given 05/30/23 2925) Prescription drugs considered: PROCEDURES: Unless otherwise noted below, none Procedures IMPRESSION 1. Generalized abdominal pain 2. Renal mass DISPOSITION/PLAN DISPOSITION Discharge 05/30/2023 03:30:42 PM PATIENT REFERRED TO: [facility] [address] [place] [address] In 1 week Antonella Maria Alejandralarry [address] [facility] [address] In 1 week DISCHARGE MEDICATIONS: New Prescriptions No medications on file @[facility]([id number]:LAST:1)@ (Comment: Please notethis report has been produced using speech recognition software and may contain errors related to that system including errors in grammar, punctuation, and spelling, as well as words and phrases that may be inappropriate.If there is any questions or concerns please feel free to contact the dictating provider for clarification). Fan Marcial MD (electronically signed) Attending Emergency Physician Fan Marcial MD 05/30/23 1532 Pt presents to er from snf for chronic back pain that is worsening. Pt is aox4 speaking in full sentences. Pt has hx of multiple falls and spinal cage from bulging discs. Pt states pain is 10/10 in lower mid back. Bed: 02 Expected date: Expected time: Means of arrival: Comments: Offload Rudy Gabriel 05/30/23 1309 documented in this encounter [facility] 05-30-2023 Hospital Discharge instructions Fan Marcial MD - 05/30/2023 3:31 PM EST Your CAT scan showed a nonsevere calcific area of your kidney that needs outpatient follow-up. This is not causing your pain today. The following attachments cannot be sent through Care Everywhere.Abdominal Pain, Adult ED (Lebanese)documented in this encounter [facility] 05-30-2023 Emergency department Note Pt presents to er from snf for chronic back pain that is worsening. Pt is aox4 speaking in full sentences. Pt has hx of multiple falls and spinal cage from bulging discs. Pt states pain is 10/10 in lower mid back. Rudy Gabriel 05/30/23 1316 [facility] 05-30-2023 Emergency department Note Bed: 02 Expected date: Expected time: Means of arrival: Comments: Offload Rudy Gabriel 05/30/23 1309 [facility] 05-30-2023 Emergency department Triage note Pt presents to er from [facility] for chronic back pain that is worsening. Pt is aox4 speaking in full sentences. Pt has hx of multiple falls and spinal cage from bulging discs. Pt states pain is 10/10 in lower mid back. [facility] 05-30-2023 Physician Emergency department Note [facility] ED EMERGENCY DEPARTMENT ENCOUNTER Pt Name: Kari Allan Birthdate 1970 Date of evaluation: 05/30/2023 Provider: Fan Marcial MD CHIEF COMPLAINT Chief Complaint Patient presents with Back Pain Pt presents to er from snf for chronic back pain that is worsening. Pt is aox4 speaking in full sentences. Pt has hx of multiple falls and spinal cage from bulging discs. Pt states pain is 10/10 in lower mid back. HISTORY OF PRESENT ILLNESS (Location/Symptom, Timing/Onset,Context/Setting, Quality, Duration, Modifying Factors, Severity) Note limiting factors. Kari Allan is a 52 y.o. male who presents to the emergency department patient brought in via squad. Initially complained of back pain but when I go into the room he is complaining of epigastric abdominal pain. History of alcoholism and pancreatitis. He does have a history of anoxic brain injury convulsion COPD. Multiple medical problems. He reports no bowel or bladder problems. He reports no chest pain. He reports no fevers or chills. No trauma has not fallen. HPI Historian is the patient Nurse's notes for past medical history, surgical history, social history were reviewed. Medications and allergies reviewed. PAST MEDICAL HISTORY Past Medical History: Diagnosis Date Alcohol abuse with intoxication (HCC) Anemia Anoxic brain damage (CMS/HCC) (HCC) Anxiety Asthma Convulsion (HCC) COPD (chronic obstructive pulmonary disease) (HCC) Depression DVT (deep venous thrombosis) (HCC) Dysphagia Encephalopathy GERD (gastroesophageal reflux disease) Hepatitis Hypertension Impulse control disorder Insomnia, unspecified Need for assistance with personal care Opioid abuse (HCC) Other symbolic dysfunctions Pancreatitis Psychosis (HCC) PTSD (post-traumatic stress disorder) Solitary lung nodule SURGICALHISTORY Past Surgical History: Procedure Laterality Date APPENDECTOMY BACK SURGERY 5 vertabrae fused CHOLECYSTECTOMY COLONOSCOPY 2014 CT CHEST ANGIOGRAM W AND/OR WO IV CONTRAST 04/08/2022 CT CHEST ANGIOGRAM W AND/OR WO IV CONTRAST 04/08/2022 [facility] CT IMAGING CYST REMOVAL wrist GASTROSTOMY TUBE PLACEMENT 03/01/2017 UPPER GASTROINTESTINAL ENDOSCOPY 02/16/2017 CURRENT MEDICATIONS Previous Medications ACETAMINOPHEN (TYLENOL) 325 MG TABLET Take 2 tablets by mouth every 6 hours as needed for fever, mild pain (1-3) or moderate pain (4-6). ALBUTEROL SULFATE 108 (90 BASE) MCG/ACT AEROSOL POWDER Inhale 1 puff every 2 hours as needed. APIXABAN (ELIQUIS) 5 MG TABLET Take 5 mg by mouth in the morning and 5 mg before bedtime. BACLOFEN (LIORESAL) 10 MG TABLET Take 10 mg by mouth 3 times daily. BISACODYL (DULCOLAX) 10 MG SUPPOSITORY Insert 10 mg into the rectum Daily as needed for constipation. BISACODYL (DULCOLAX) 5 MG EC TABLET Take 5 mg by mouth Daily as needed. DIVALPROEX SPRINKLE (DEPAKOTE SPRINKLE) [address] CAPSULE Take 500 mg by mouth 3 times daily. ESCITALOPRAM (LEXAPRO) 10 MG TABLET Take 1.5 tablets by mouth daily. FOLIC ACID (FOLVITE) 1 MG TABLET daily. GUAIFENESIN (HUMIBID 3) 400 MG TABLET Take 400 mg by mouth every 8 hours as needed for congestion. IPRATROPIUM-ALBUTEROL (DUO-NEB) 0.5-2.5 MG/3 ML NEBULIZER SOLUTION Inhale 3 mL every 6 hours as needed. LEVETIRACETAM (KEPPRA) 750 MG TABLET Take 1 tablet by mouth in the morning and 1 tablet before bedtime. MAGNESIUM HYDROXIDE (MILK OF MAGNESIA) 400 MG/5ML SUSPENSION Take 30 mL by mouth Daily as needed. MELATONIN 3 MG TABLET 3 mg Nightly as needed. MENTHOL, TOPICAL ANALGESIC, (BIOFREEZE ROLL-ON) 4 % GEL Apply topically every 8 hours as needed. NALTREXONE (DEPADE) 50 MG TABLET Take 50 mg by mouth in the morning. NIRMATRELVIR&RITONAVIR 300/100 (PAXLOVID, 300/100,) 20 X 150 MG & 10 X 100MG TABLET THERAPY PACK Take 3 tablets by mouth in the morning and 3 tablets in the evening. PANTOPRAZOLE (PROTONIX) 40 MG EC TABLET 40 mg 2 times daily. POLYETHYLENE GLYCOL, PEG, 3350 (GLYCOLAX) 17 GM/SCOOP POWDER Take 17 g by mouth daily. PYRIDOXINE (VITAMIN B-6) 25 MG TABLET 25 mg daily. QUETIAPINE (SEROQUEL) 200 MG TABLET 200 mg 2 times daily. THIAMINE (VITAMIN B-1) 100 MG TABLET 100 mg daily. THROAT LOZENGES (COUGH DROPS MENTHOL) LOZENGE Dissolve 1 lozenge in the mouth Once as needed. Haloperidol and Paregoric FAMILY HISTORY Family History Problem Relation Name Age of Onset Diabetes Mother Diabetes Brother SOCIAL HISTORY Social History Socioeconomic History Marital status: Single Tobacco Use Smoking status: Some Days Packs/day: 2.00 Years: 30.00 Additional pack years: 0.00 Total pack years: 60.00 Types: Cigarettes Smokeless tobacco: Never Vaping Use Vaping Use: Never used Substance and Sexual Activity Alcohol use: Yes Drug use: Not Currently Sexual activity: Not Currently Social Determinants of Health Intimate Partner Violence: Patient Unable To Answer (05/20/2023) Humiliation, Afraid, Rape, and Kick questionnaire Fear of Current or Ex-Partner: Patient unable to answer Emotionally Abused: Patient unable to answer Physically Abused: Patient unable to answer Sexually Abused: Patient unable to answer SCREENINGS PHYSICAL EXAM (up to 7 for level 4, 8 or more for level 5) @EDTRIAGEVSS@ Appropriate PPE including n 95, gown, gloves, goggles where worn when appropriate with this patient. Physical Exam Vital signs reviewed general: Alert and oriented 3 head: Atraumatic eyes: Equal round reactive to light and accommodating, pupils are equal, round and reactive to light and accommodation oropharynx: Clear and well hydrated neck: Supple heart: Regular rate and rhythm, no murmurs lungs: Clear to auscultation bilaterally abdomen: Soft vague mid abdominal tenderness. No rebound or guarding. Nontender, positive bowel sounds, no peritoneal findings. Extremities: Moving all fours, no tenderness. Normal capillary refill. Skin: No rash or lesions -to the exposed skin Back lower paraspinal tenderness no midline tenderness. Strength sensation intact lower extremities. neurologically: Alert and oriented 3, no focal deficit DIAGNOSTIC RESULTS RADIOLOGY: Interpretation per the Radiologist below, if availableat the time of this note: CT abdomen pelvis w contrast Final Result 1. No acute abdominopelvic process identified. 2. Hepatic steatosis, correlate with liver function tests. 3. Stable posterior superior left kidney calcified cystic structure, likely representing partially calcified cyst. Ultrasound may be obtained for further evaluation if indicated. 4. Status post laminectomy and lumbosacral posterior fusion with persistent L5-S1 anterolisthesis. 5. Other chronic and postsurgical findings as discussed. Report Dictated on Electronically Signed By: Antony Thompson MD Electronically Signed Date/Time: 05/30/2023 3:03 PM EST ED BEDSIDE ULTRASOUND: Performed by ED Physician - none LABS: Labs Reviewed COMPREHENSIVE METABOLIC PANEL - Abnormal Result Value SODIUM 138 POTASSIUM 4.0 CHLORIDE 100 CARBON DIOXIDE 28 ANION GAP 10 UREA NITROGEN 7 (*) CREATININE 1.13 GLUCOSE 97 CALCIUM 9.3 AST (SGOT) 31 ALT 28 ALKALINE PHOSPHATASE 138 (*) ALBUMIN 3.7 BILIRUBIN, TOTAL 0.8 TOTAL PROTEIN 7.2 eGFR 77.2 CBC WITH AUTO DIFFERENTIAL - Abnormal Auto WBC 8.2 RBC 4.18 (*) Hemoglobin 13.5 Hematocrit 38.9 (*) MCV 92.9 MCH 32.3 MCHC 34.7 RDW 14.4 Platelets 238 MPV 6.7 (*) nRBC 0.0 Neutrophils Relative 49.9 Lymphocytes Relative 32.9 Monocytes Relative 12.1 (*) Eosinophils Relative 4.0 Basophils Relative 1.1 Neutrophils Absolute 4.1 Lymphocytes Absolute 2.7 Monocytes Absolute 1.0 (*) Eosinophils Absolute 0.3 Basophils Absolute 0.1 LIPASE - Normal LIPASE 58 All other labs were within normal range or not returned as of thisdictation. EMERGENCYDEPARTMENT COURSE and DIFFERENTIAL DIAGNOSIS/MDM: Vitals: Vitals: 05/30/23 1313 05/30/23 1315 BP: 108/87 BP Location: Left arm Patient Position: Sitting Pulse: 104 Temp: 36.7 C (98.1 F) TempSrc: Tympanic SpO2: 100% 100% Medical Decision Making Amount and/or Complexity of Data Reviewed Labs: ordered. Radiology: ordered. Risk Prescription drug management. EMERGENCY DEPARTMENT COURSE and DIFFERENTIAL DIAGNOSIS/MDM: Vitals: Vitals: 05/30/23 1313 05/30/23 1315 BP: 108/87 BP Location: Left arm Patient Position: Sitting Pulse: 104 Temp: 36.7 C (98.1 F) TempSrc: Tympanic SpO2: 100% 100% The patient presented with a chief complaint of abdominal pain. The differential diagnosis associated with this patient's presentation includes bowel obstruction, pancreatitis, electrolyte disturbance, dehydration. Our workup consisted of ordering/reviewing blood work and CT of the abdomen. Will blood work including lipase white blood cell count and sodium potassium. Normal creatinine. Patient be discharged home no signs of bowel obstruction. Follow this doctor in 1 week return if any problems or concerns. Diagnoses as of 05/30/23 1532 Generalized abdominal pain Renal mass Diagnostics considered but not indicated based on history, physical, testing: None External records reviewed: Outpatient records reviewed. Patient was admitted for COVID hypoxia on 05/19/2023. Patient had echo done on 05/17/2023 that shows an EF of 71%. Radiologic diagnostics interpreted by mn: film images such as CT, Ultrasound and MRI are read by the radiologist. Plain radiographic images are visualized and preliminarily interpreted by the emergency physician with the below findings: CT scan(s) CT revealed no acute process does show calcification of the kidney that is outpatient follow-up. Discussions with other clinicians: none Chronic conditions impacting care: Call is him, back pain, disc herniation, GERD, COVID, sleep apnea, encephalopathy, traumatic brain injury Social determinants of health affecting care: Alcoholism and patient smokes Shared decision making: Patient agrees to treatment plan ED Medications managed: Medications iopamidol (Isovue-370) 76 % injection 75 mL (75 mL IntraVENous Given 05/30/23 1441) Prescription drugs considered: PROCEDURES: Unless otherwise noted below, none Procedures IMPRESSION 1. Generalized abdominal pain 2. Renal mass DISPOSITION/PLAN DISPOSITION Discharge 05/30/2023 03:30:42 PM PATIENT REFERRED TO: [facility] [address] [facility] [address] In 1 week Antonella Marrero [address] [facility] [address] In 1 week DISCHARGE MEDICATIONS: New Prescriptions No medications on file @[facility]([phone]:LAST:1)@ (Comment: Please notethis report has been produced using speech recognition software and may contain errors related to that system including errors in grammar, punctuation, and spelling, as well as words and phrases that may be inappropriate.If there is any questions or concerns please feel free to contact the dictating provider for clarification). Fan Marcial MD (electronically signed) Attending Emergency Physician Fan Marcial MD 05/30/23 1532 [facility] 05-21-2023 Nurse Note Report called to Albina at [facility]. Transportation set up for 1999. [facility] 05-21-2023 Nurse Note Report called to Albina at [facility]. Transportation set up for 1999. Call placed to patients Clari solano for discharge updates. No answer. Message left requesting a call back. Unwitnessed fall. Patients bed alarm was alarming, when NA entered room patient was on ground next to bed. Patient denies hitting head. Complained of back, hip and knee pain. Assessment and Xrays ordered by Dr. Alcantara. Okay, per Dr. Alcantara to assist patient back to bed. Rapid response team called. Vitals within normal limits. documented in this encounter [facility] 05-21-2023 Nurse Note Call placed to patients Clari solano for discharge updates. No answer. Message left requesting a call back. [facility] 05-21-2023 Note Formatting of this n ote might be different from the original. Discharge med list transmitted to [facility] per [facility] request. [facility] 05-21-2023 Note Formatting of this n ote might be different from the original. Discharge med list transmitted to [facility] via [facility] per [facility] request. [facility] 05-21-2023 Miscellaneous Notes Discharge med list transmitted to [facility] via [facility] per [facility] request. Tasked [facility] to send dc packet to [facility]. . Updated [facility] via [facility] that anticipated return to their facility tonight if xrays are normal. . Patient Choice Patient Name: KARI ALLAN Date of : 1970 All Providers Sent Referral Name: [facility] Phone: [phone] Address: [address] [place] [address] Responded to Rapid Page, upon arrival pt was back in bed. See nursing note for details. In the event that patient was to discharge over weekend and return to [facility], an ambulance sheet has been placed on chart. Return referral placed to [facility] per [facility] request. Await review and response regarding ability to accept. [facility] notified. 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 as indicated: Confirmation of Payer with patient/family: Payer Name: [place]: Confirmation of Primary Care Physician: Primary Caregiver: If assistance needed, confirmed caregiver ready, willing and able to care for patient at discharge: Confirmed with: Living Arrangements Current Residence: ([facility]) Number of Floors Number of Entry Steps: Bed/Bath Levels: Facility: Facility Name: Plan to Return: Lives with: Alone Support Systems: manager city/social services coordinator (Staff) Activities of Daily Living Ambulation: Bathing/Dressing: Elimination/Continence/Toileting: Feeding: Who Assists with Activities of Daily Living: Instrumental Activities of Daily Living Prescription Coverage: Yes Pharmacy Used: Facility Medication Management: Medication dispenser Who assists with medication securing and setup?: Facility staff Transportation/Shopping: Assistance Provider Transportation/Shopping Assistance Provider Name: Facility Transportation Mode: Needs Assistance with Transportation at Discharge: Yes Meal Preparation: Assistance Provider Meal Prep Assistance Provider Name: Facility Staff Laundry/Cleaning: Assistance Provider Laundry/Cleaning Assistance Provider Name: Facility Staff Finances/Bill Paying: Assistance Provider Finances/Bill Payer Assistance Provider Name: Facility Staff Communication: Types of Care Services/Equipment Utilized Care Services: Dialysis Type: Durable Medical Equipment: Wheelchair (standard or power) Patient's Goal/Discharge Plan Patient expects to be discharged to: [facility] Discharge Planning Actions: Patient's Choice Rights and [employer] and Collaborative Relationships Disclosed as Indicated for Post-Acute Care: Interdisciplinary Team Engagement: Social Work Referral for: Additional Information: Patient admitted to with Covid, on room air, oral decadron and iv remdesivir. ID and pulmonology following. Attempted to reach patient in his room multiple times without success. Contacted [facility] and confirmed he is a long-term resident and that he uses a wheelchair. Referral requested to [facility] for return. Gina Green RN Admitted from home with covid. Receiving oral decadron and iv remdesivir. ID and pulmonology are consulted. Pulse ox is 94% on room air. Discharge plan is likely return to [facility]. . documented in this encounter [facility] 05-21-2023 History of Present illness Narrative Images from the original note were not included. OCCUPATIONAL THERAPY [facility] Initial Evaluation Name/MRN: Kari Allan ([id number]) Evaluation Date: 05/21/2023 Date of : 1970 Admission Date: 05/19/2023 10:20 PM Age: 52 y.o. Room/Bed: B4-455/B4455 A Discharge Recommendation: Shelter Facility Equipment Needed: No Assessment IMPRESSION: Pt in from ECF 05/19 with c/o multiple falls and hx of anoxic brain injury with SOB and lightheadedness. He was previously requiring assits for ADLs, functional transfers / mobility. He is currently MIN A for transfers / mobility with a FWW, MOD A for LB ADLs, and SBA for seated UB ADLS. He would benefit from skilled OT services to address the below. Recommend planned discharge for return to facility with OT. Performance Deficits /Impairments: Decreased Functional Mobility, Decreased ADL status, Decreased Endurance, Decreased Balance, and Decreased High Level IADLs Prognosis: Fair Decision Making: Medium Complexity Subjective Pleasant and cooperative. Ok to see per RN Pain: reports of hip pain, however did not formally rate. Past Medical History: Past Medical History: Diagnosis Date Alcohol abuse with intoxication (HCC) Anemia Anoxic brain damage (CMS/HCC) (HCC) Anxiety Asthma Convulsion (HCC) COPD (chronic obstructive pulmonary disease) (HCC) Depression DVT (deep venous thrombosis) (HCC) Dysphagia Encephalopathy GERD (gastroesophageal reflux disease) Hepatitis Hypertension Impulse control disorder Insomnia, unspecified Need for assistance with personal care Opioid abuse (HCC) Other symbolic dysfunctions Pancreatitis Psychosis (HCC) PTSD (post-traumatic stress disorder) Solitary lung nodule Past Surgical History: Past Surgical History: Procedure Laterality Date APPENDECTOMY BACK SURGERY 5 vertabrae fused CHOLECYSTECTOMY COLONOSCOPY 2014 CT CHEST ANGIOGRAM W AND/OR WO IV CONTRAST 04/08/2022 CT CHEST ANGIOGRAM W AND/OR WO IV CONTRAST 04/08/[address] [facility] [address] IMAGING CYST REMOVAL wrist GASTROSTOMY TUBE PLACEMENT 03/01/2017 UPPER GASTROINTESTINAL ENDOSCOPY 02/16/2017 Admission Diagnosis: Patient Active Problem List Diagnosis Date Noted GERD (gastroesophageal reflux disease) 12/18/2016 Alcohol-induced acute pancreatitis without infection or necrosis 12/18/2016 Obstructive chronic bronchitis without exacerbation 12/18/2016 Hypertension 10/25/2016 COVID 05/19/2023 Chronic bronchitis (HCC) 04/02/2023 MARICRUZ (obstructive sleep apnea) 04/02/2023 Class 1 obesity due to excess calories with serious comorbidity and body mass index (BMI) of 31.0 to 31.9 in adult 04/02/2023 Preoperative respiratory examination 04/02/2023 Esophageal stricture 04/02/2023 C. difficile diarrhea 03/01/2017 Acute respiratory failure with hypoxia (HCC) 02/23/2017 Acute respiratory failure (HCC) 02/23/2017 Encephalopathy 02/23/2017 Encephalopathy acute 02/23/2017 Febrile illness 02/22/2017 Blood poisoning 02/19/2017 Sepsis ([facility]) 02/19/2017 Seizure ([facility]) 02/19/2017 Tobacco abuse 02/19/2017 Drug overdose 02/19/2017 Acute alcoholic gastritis 02/16/2017 Alcohol abuse 02/14/2017 Chronic pancreatitis (CMS/HCC) ([facility]) 02/14/2017 Hip pain 10/25/2016 Deep vein thrombosis ([facility]) 10/25/2016 Back pain 10/25/2016 Renal cyst 10/25/2016 Pain of lower extremity 01/13/2015 Medical Precautions: Droplet Plus Proper PPE donned/doffed in accordance with facility standards. Fall Risk: Hernandez Fall Risk Score: 70 (High Risk) Precautions/Restrictions: N/A Family/Caregiver Present: none Overall Cognitive Status: Exceptions - Following commands: follows one step commands with increased time and follows one step commands with repetition - Attention span: attends with cues to redirect - Memory: decreased short term memory - Safety judgement: decreased awareness of need for assistance and decreased awareness of need for safety - Problem solving: assistance required to generate solutions, assistance required to implement solutions, assistance required to identify errors made, assistance required to correct errors made, and decreased awareness of errors - Insights: decreased awareness of deficits - Initiation: requires cues for some - Sequencing: requires cues for some Overall Orientation Status: Oriented to Person Social/Functional History [facility] Assistive Equipment: wheelchair - manual Prior Level of Function ADL Assistance: Needs Assist Ambulation Assistance: Needs Assistance Transfer Assistance: Needs Assist Objective ADLs Pt demos poor standing balance and endurance at this time. He demos diminished functional reach, balance, and strength at this time for participation in ADL tasks. No true LOB noted with OOB activity, however increased instability noted at this time. He fatigues quickly and demos increased pain with OOB activity at this time, and would require increased rest breaks for participation in extended ADL tasks. Based on his observed functional ability, anticipate that he would require MOD A for LB ADLs and SBA for seated UB ADLs. Upper Extremity Assessment AROM: WFL PROM: WFL Strength: WFL Vision: not assessed this session Hearing: normal Bed Mobility Supine to sit: SBA Sit to supine: SBA Scooting: SBA HOB elevated, increased time required to complete. No true LOB noted at this time with increased reliance on bed features to complete. Denies dizziness with positional changes at this time. Increased impulsivity noted at this time with completion, however no physical assist required. Transfers/Functional Mobility Sit to stand: Min Assist Stand to sit: Min Assist Sitting balance: SBA Standing balance: Min Assist Functional mobility: Min Assist Pt completed sit<>stand transfer from EOB with MIN A overall for safety and stability with good hand placement for push up from / reach back for seated surfaces. Denies dizziness with positional changes. MIN A overall for increased instability, worsening during transitional movements with cueing from therapist for safety and sequencing of turns with FWW. Device(s) used: front wheeled walker AM-PAC AM-PAC Inpatient Daily Activity Raw Score: 16 ADL Inpatient CMS G-Code Modifier: CK Plan Pt would benefit from skilled acute OT services to address Strengthening, Balance Training, Functional Mobility Training, Endurance Training, Cognitive Reorientation, Safety Education and Training, Patient/Caregiver Training, Equipment Evaluation/Education, Positioning, Self-Care/ADL Training, and Cognitive/Perceptual Training. Frequency: 6 visits during current hospital admission or until additional recommendations are made Barriers: Confusion, Cognitive deficit, Impulsivity, Decreased endurance, and Lower extremity weakness Prognosis: fair Safety/Education Safety Safety Devices in place: All fall risk precautions in place, call light within reach, left in bed, bed alarm in place, gait belt, patient at risk for falls, and nurse notified Restraints: No Education Education Given To: patient Education Provided: OT Role, Plan of Care, Precautions, Transfer Training, Equipment, and Fall Prevention Education Education Method: Verbal, Demonstration, and Teach Back Barriers to Learning: Cognition Education Outcome: Verbalized Understanding and Continued Education Needed Goals Patient Stated Goal: Patient unable to participate in goal setting at this time. Encounter Problems Encounter Problems (Active) Dressings Lower Extremities Patient will dress lower body SBA Start: 05/21/23 Expected End: 05/28/23 Mobility Patient will demonstrate functional mobility with FWW and SBA Start: 05/21/23 Expected End: 05/28/23 Toileting Patient will complete toileting tasks at standard toilet with SBA. Start: 05/21/23 Expected End: 05/28/23 Transfers Patient will complete functional transfer with rolling walker with SBA in order to prepare for ambulation. Start: 05/21/23 Expected End: 05/28/23 Therapy Time Individual Co-treatment Time In 1412 (OT / PT coeval) Time Out 1420 Minutes 8 Kasi Berkowitz OT Patient's Occupational Therapy Plan of Care supervision is transferred to a [facility] Therapy Services Occupational Therapist. Goals and/or treatment plan was established in collaboration with patient/family/other representatives. Images from the original note were not included. PHYSICAL THERAPY [facility] Initial Evaluation Name/MRN: Kari Allan ([id number]) Evaluation Date: 05/21/2023 Date of : 1970 Admission Date: 05/19/2023 10:20 PM Age: 52 y.o. Room[facility]Bed: [facility] A Discharge Recommendation: ECF with PT Equipment Needed: No Assessment IMPRESSION: Pt admitted 05/19 with COVID-19, fall. He has h/o anoxic brain injuryt, from ECF and in w/c at baseline per notes. He reports facilty assists sometimes. He demo bed mobility SBA, transfer to FWW Francheska and wanting to ambulate, demo ambulation with FWW and Min A. He would benefit from skilled therapy to promote mobility, rec return to ECF w/ PT Diagnosis: COVID-19, fall Prognosis: good Performance Deficits /Impairments: Decreased Functional Mobility, Decreased Strength, Decreased Safety Awareness, Decreased Cognition, Decreased Endurance, and Decreased Balance Decision Making: Medium Complexity Subjective Per RN pt okay for therapy, is pleasant and agree to PT Pain: Pt denies any current pain. Past Medical History: Past Medical History: Diagnosis Date Alcohol abuse with intoxication (HCC) Anemia Anoxic brain damage (CMS/HCC) (HCC) Anxiety Asthma Convulsion (HCC) COPD (chronic obstructive pulmonary disease) (HCC) Depression DVT (deep venous thrombosis) (HCC) Dysphagia Encephalopathy GERD (gastroesophageal reflux disease) Hepatitis Hypertension Impulse control disorder Insomnia, unspecified Need for assistance with personal care Opioid abuse (HCC) Other symbolic dysfunctions Pancreatitis Psychosis (HCC) PTSD (post-traumatic stress disorder) Solitary lung nodule Past Surgical History: Past Surgical History: Procedure Laterality Date APPENDECTOMY BACK SURGERY 5 vertabrae fused CHOLECYSTECTOMY COLONOSCOPY 2014 CT CHEST ANGIOGRAM W AND/OR WO IV CONTRAST 04/08/2022 CT CHEST ANGIOGRAM W AND/OR WO IV CONTRAST 04/08/[address] [facility] [address] IMAGING CYST REMOVAL wrist GASTROSTOMY TUBE PLACEMENT 03/01/2017 UPPER GASTROINTESTINAL ENDOSCOPY 02/16/2017 Admission Diagnosis: Patient Active Problem List Diagnosis Date Noted GERD (gastroesophageal reflux disease) 12/18/2016 Alcohol-induced acute pancreatitis without infection or necrosis 12/18/2016 Obstructive chronic bronchitis without exacerbation 12/18/2016 Hypertension 10/25/2016 COVID 05/19/2023 Chronic bronchitis (HCC) 04/02/2023 MARICRUZ (obstructive sleep apnea) 04/02/2023 Class 1 obesity due to excess calories with serious comorbidity and body mass index (BMI) of 31.0 to 31.9 in adult 04/02/2023 Preoperative respiratory examination 04/02/2023 Esophageal stricture 04/02/2023 C. difficile diarrhea 03/01/2017 Acute respiratory failure with hypoxia (HCC) 02/23/2017 Acute respiratory failure (HCC) 02/23/2017 Encephalopathy 02/23/2017 Encephalopathy acute 02/23/2017 Febrile illness 02/22/2017 Blood poisoning 02/19/2017 Sepsis (HCC) 02/19/2017 Seizure (HCC) 02/19/2017 Tobacco abuse 02/19/2017 Drug overdose 02/19/2017 Acute alcoholic gastritis 02/16/2017 Alcohol abuse 02/14/2017 Chronic pancreatitis (CMS/HCC) (HCC) 02/14/2017 Hip pain 10/25/2016 Deep vein thrombosis (HCC) 10/25/2016 Back pain 10/25/2016 Renal cyst 10/25/2016 Pain of lower extremity 01/13/2015 Medical Precautions: Droplet Plus Proper PPE donned/doffed in accordance with facility standards. Fall Risk: Hernandez Fall Risk Score: 70 (High Risk) Precautions/Restrictions: N/A Family/Caregiver Present: none Overall Cognitive Status: Exceptions - Following commands: follows one step commands with increased time and follows one step commands with repetition - Attention span: attends with cues to redirect - Memory: decreased short term memory - Safety judgement: decreased awareness of need for assistance and decreased awareness of need for safety - Problem solving: assistance required to generate solutions, assistance required to implement solutions, assistance required to identify errors made, assistance required to correct errors made, and decreased awareness of errors - Insights: decreased awareness of deficits - Initiation: requires cues for some - Sequencing: requires cues for some Overall Orientation Status: Oriented to Person Vision: not assessed this session Hearing: normal Social/Functional [facility] Assistive Equipment: wheelchair - manual Prior Level of Function ADL Assistance: Needs Assist Ambulation Assistance: Needs Assistance Transfer Assistance: Needs Assist Objective Lower Extremity Assessment AROM: WFL PROM: Not assessed this session Strength: Exceptions: grossly decreased Bed Mobility: Supine to sit: SBA, Pt denies dizziness. He demo bed mobility SBA with light use bed rails Sit to supine: SBA Transfers Sit to stand: Min Assist, Pt transfer to FWW with min A. Therapist cues pt for hand and foot placement. He demo no LOB, demo good eccentric control to sit Stand to sit: Min Assist Ambulation Ambulation 1 Assistive device(s) used: front wheeled walker Assist level: Min Assist, Pt ambulate with FWW and min A. He demo short shuffling gait and require assist to manage FWW, especially with turning. He demo no overt LOB but generally unsteady Distance (ft): ~30ft Quality of gait: No LOB, shuffling, wide VANESSA, slow fanta, postural sway, path deviations, instability through all phases Outcome Measures AM-PAC How much HELP from another person do you currently need Turning from your back to your side while in a flat bed without using bedrails?: A Little Moving from lying on your back to sitting on the side of a flat bed without using bedrails?: A Little Moving to and from a bed to a chair (including a wheelchair)?: A Little Standing up from a chair using your arms (wheelchair or bedside chair)?: A Little Walking in a hospital room?: A Little Stair climbing assessed?: No AM-PAC Inpatient Mobility Raw Score (No Stairs) : 15 JH-HLM -HLM Score: Walked 25 ft or more (i.e. walked outside of room) Plan Pt would benefit from skilled acute PT services to address Strengthening, Balance Training, Functional Mobility Training, Endurance Training, Gait Training, Neuromuscular Re-Education Training, Pain Management, Safety Education and Training, Patient/Caregiver Training, Equipment Evaluation/Education, and Positioning. Frequency: 5 visits during current hospital admission or until additional recommendations are made Barriers: Cognitive deficit Safety/Education Safety Safety Devices in place: All fall risk precautions in place, call light within reach, left in bed, bed alarm in place, gait belt, patient at risk for falls, and nurse notified Restraints: No Education Education Given To: patient Education Provided: PT Role, PT Goals, Gait Training, Plan of Care, Precautions, Transfer Training, Energy Conservation, Equipment, Fall Prevention Education, Discharge Recommendations, and Benefits of Increasing Activity Education Method: Verbal and Demonstration Barriers to Learning: Cognition Education Outcome: Verbalized Understanding, Demonstrated Understanding, and Continued Education Needed Goals Patient Stated Goal: None stated Encounter Problems Encounter Problems (Active) Exercise Patient will complete lower extremity exercises for 1-2 sets / 5-10 reps in order to improve strength and activity tolerance for mobility. Start: 05/21/23 Expected End: 05/28/23 Mobility Patient will ambulate 75 feet with SBA and rolling walker in order to improve safety and independence with mobility. Start: 05/21/23 Expected End: 05/28/23 Transfers Patient will perform bed mobility with modified independence in order to improve independence and prepare for out of bed mobility. Start: 05/21/23 Expected End: 05/28/23 Patient will complete sit to stand transfer with SBA to rolling walker in order to improve safety and prepare for out of bed mobility. Start: 05/21/23 Expected End: 05/28/23 Therapy Time Individual Co-treatment Time In 1412 (co-eval with OT) Time Out 1420 Minutes 8 Oneil West PT Patient's Physical Therapy Plan of Care supervision is transferred to a [facility] Physical Therapist. Goals and/or treatment plan was established in collaboration with patient/family/other representatives. documented in this encounter [facility] 05-21-2023 Note Formatting of this n ote might be different from the original. Tasked CANCER REGISTRY MANAGER to send dc packet to [facility]. . [facility] 05-21-2023 Note Formatting of this n ote might be different from the original. Tasked CANCER REGISTRY MANAGER to send dc packet to [facility]. . [facility] 05-21-2023 Note Formatting of this n ote might be different from the original. [facility] if xrays are normal. . [facility] 05-21-2023 Note Formatting of this n ote might be different from the original. Updated [facility] via careport that anticipated return to their facility tonight if xrays are normal. . [facility] 05-21-2023 Note Formatting of this n ote might be different from the original. Patient Choice Patient Name: KARI ALLAN Date of : 1970 All Providers Sent Referral Name: Lili Boyd [facility] Phone: [phone] Address: [address] [place] [address] [facility] 05-21-2023 Note Formatting of this n ote might be different from the original. Patient Choice Patient Name: KARI ALLAN Date of : 1970 All Providers Sent Referral Name: Lili SNOW Phone: [phone] Address: [address] [place] [address] [facility] 05-21-2023 Note Formatting of this n ote might be different from the original. Responded to Rapid Page, upon arrival pt was back in bed. See nursing note for details. [facility] 05-21-2023 Note Formatting of this n ote might be different from the original. Responded to Rapid Page, upon arrival pt was back in bed. See nursing note for details. [facility] 05-21-2023 Nurse Note Unwitnessed fall. Patients bed alarm was alarming, when NA entered room patient was on ground next to bed. Patient denies hitting head. Complained of back, hip and knee pain. Assessment and Xrays ordered by Dr. Alcantara. Okay, per Dr. Alcantara to assist patient back to bed. Rapid response team called. Vitals within normal limits. [facility] 05-21-2023 Hospital course Narrative Images from the original note were not included. Discharge Summary Kari Allan : 1970 ADMIT DATE: 05/19/2023 DISCHARGE DATE: 05/21/2023 PRIMARY CARE PHYSICIAN: Antonella Marrero VISIT STATUS: Observation CODE STATUS: Full Code DISCHARGE DIAGNOSES: Principal Problem: COVID HOSPITAL COURSE: Kari Allan is a 52 y.o. male who presents to the emergency department status post fall. The patient was sent in from his extended care facility after multiple falls. The patient reports that yesterday he started to feel very weak, short of breath, and lightheaded. He reports that the symptoms progressively worsened today which caused him to fall multiple times when going from a seated to standing position. The patient tested positive for COVID-19 2 days ago. The patient denies any chest pain or abdominal pain. He denies any injuries from the fall. He is being admitted for covid and treatment the patient was seen by fabiola and is doing well they feel he can go back on paxlovid. He did fall today trying to get out of bed without calling for help. His xrays were negative so he is being sent back to [facility] SIGNIFICANT DIAGNOSTIC STUDIES: Labs xrays CONSULTANTS: fabiola RECOMMENDED NEXT STEPS: snf DISCHARGE MEDICATIONS: Medication List START taking these medications Paxlovid (300/100) 20 x 150 MG & 10 x 100MG tablet therapy pack Generic drug: Nirmatrelvir&Ritonavir 300/100 Take 3 tablets by mouth in the morning and 3 tablets in the evening. CONTINUE taking these medications acetaminophen 325 MG tablet Commonly known as: Tylenol Albuterol Sulfate 108 (90 Base) MCG/ACT aerosol powder baclofen 10 MG tablet Commonly known as: Lioresal Biofreeze Roll-On 4 % gel Generic drug: Menthol (Topical Analgesic) * bisacodyl 5 MG EC tablet Commonly known as: Dulcolax * Dulcolax 10 MG suppository Generic drug: bisacodyl Cough Drops Menthol lozenge divalproex sprinkle [address] capsule Commonly known as: Depakote Sprinkle Eliquis 5 MG tablet Generic drug: apixaban escitalopram 10 MG tablet Commonly known as: Lexapro folic acid 1 MG tablet Commonly known as: Folvite guaiFENesin 400 MG tablet Commonly known as: Humibid 3 ipratropium-albuterol 0.5-2.5 mg/3 mL nebulizer solution Commonly known as: Duo-Neb levETIRAcetam 750 MG tablet Commonly known as: Keppra magnesium hydroxide 400 MG/5ML suspension Commonly known as: Milk of Magnesia melatonin 3 MG tablet naltrexone 50 MG tablet Commonly known as: Depade pantoprazole 40 MG EC tablet Commonly known as: ProtoNix polyethylene glycol (PEG) 3350 17 GM/SCOOP powder Commonly known as: Glycolax pyridoxine 25 MG tablet Commonly known as: Vitamin B-6 QUEtiapine 200 MG tablet Commonly known as: SEROquel thiamine 100 MG tablet Commonly known as: Vitamin B-1 * This list has 2 medication(s) that are the same as other medications prescribed for you. Read the directions carefully, and ask your doctor or other care provider to review them with you. Where to Get Your Medications These medications were sent to [facility] [address] [facility] [place] [address] Hours: Wednesday to Wednesday 10 am to 6 pm Paxlovid (300/100) 20 x 150 MG & 10 x 100MG tablet therapy pack DIET: Adult diet Regular ACTIVITY: Up with assist COMPLEXITY OF FOLLOW UP: [] Moderate Complexity: follow up within 7-14 calendar days (95659) [] Severe Complexity: follow up within 7 calendar days (08376) FOLLOW UP TESTING, PENDING RESULTS OR REFERRALS AT TRANSITIONAL CARE VISIT: [] Yes [] No PENDING STUDIES: none DISPOSITION: Skilled Facility FACILITY/HOME CARE AGENCY NAME: [facility] Follow up with Dr Roblero at the [facility] INSTRUCTIONS TO MA/SW: Please call patient on day after discharge (must document patient contacted within 2 business days of discharge). FOLLOW UP QUESTIONS FOR MA/SW: 1. Did you get medications filled and taking them as instructed from discharge? 2. Are you following your discharge instructions from your hospital stay? 3. Please confirm patient is scheduled for a follow up appointment within the above time frame. DISCHARGE TIME: > 30 minutes SIGNED: ASHLIE ALCANTARA DO 05/21/2023, 2:36 PM documented in this encounter [facility] 05-21-2023 Hospital Discharge instructions Apryl Underwood LPN - 05/21/2023 2:36 PM EST Continuity of Care Form Patient Name: Kari Allan : 1970 Admit date: 05/19/2023 Discharge date: [id number] Code Status Order: Full Code Advance Directives: N Admitting Physician: Ashlie Alcantara DO PCP: Antonella Marrero Discharging Nurse: Kvng Underwood LPN Discharging Hospital Unit/Room#: B4-455/B4-455 A Discharging Unit Emergency Contact: Extended Emergency Contact Information Primary Emergency Contact: Karo Sanford Mobile Relation: Sister Preferred language: Lebanese Traffic Rate Clerk needed? No Past Surgical History: Past Surgical History: Procedure Laterality Date APPENDECTOMY BACK SURGERY 5 vertabrae fused CHOLECYSTECTOMY COLONOSCOPY 2014 CT CHEST ANGIOGRAM W AND/OR WO IV CONTRAST 04/08/2022 CT CHEST ANGIOGRAM W AND/OR WO IV CONTRAST 04/08/[address] [facility] [address] IMAGING CYST REMOVAL wrist GASTROSTOMY TUBE PLACEMENT 03/01/2017 UPPER GASTROINTESTINAL ENDOSCOPY 02/16/2017 Immunization History: Immunization History Administered Date(s) Administered Influenza Whole 02/26/2015 Pfizer SARS-CoV-2 Vaccination 05/20/2020, 06/10/2020, 03/12/2021 Pneumococcal Polysaccharide PPSV23 02/17/2013 Active Problems: Medical Problems Problem List * (Principal) COVID GERD (gastroesophageal reflux disease) Alcohol-induced acute pancreatitis without infection or necrosis Hypertension Obstructive chronic bronchitis without exacerbation Chronic bronchitis (HCC) MARICRUZ (obstructive sleep apnea) Class 1 obesity due to excess calories with serious comorbidity and body mass index (BMI) of 31.0 to 31.9 in adult Preoperative respiratory examination Esophageal stricture Pain of lower extremity Hip pain Deep vein thrombosis (HCC) Back pain Overview Signed 03/15/2022 7:27 AM by Interface, Incoming Problems- [facility] Conversion Sees pain management dr penny Taylor neurosurgeon dr clark PATIENT GOT DISCHAR[facility]ED [facility] ON AUGUST [address] FRAIRE Renal cyst C. difficile diarrhea Acute respiratory failure with hypoxia (HCC) Blood poisoning Acute alcoholic gastritis Sepsis (HCC) Seizure (HCC) Febrile illness Tobacco abuse Acute respiratory failure (HCC) Encephalopathy Alcohol abuse Drug overdose Chronic pancreatitis (CMS/HCC) (HCC) Encephalopathy acute Isolation/Infection: Droplet Plus COVID-19 (confirmed) Nurse Assessment: Last Vital Signs: BP 107/85 Pulse 102 Temp 36.1 C (96.9 F) (Temporal) Resp 18 SpO2 96% Last documented pain score (0-10 scale): Last Weight: Wt Readings from Last 1 Encounters: 05/17/23 226 lb (103 kg) Mental Status: BONNIE Patient Mental Status: alert IV Access: BONNIE IV Access: None Nursing Mobility/ADLs: Walking Minimal assistance Transfer Minimal assistance Bathing Minimal assistance Dressing Minimal assistance Toileting Minimal assistance Feeding Minimal assistance Automotive Title Clerk Minimal assistance Med Delivery yes Wound Care Documentation and Therapy: Elimination: Continence: Bowel: yes Bladder: no Urinary Catheter: None Colostomy/Ileostomy/Ileal Conduit: None Date of Last BM: 05/21/23 Intake/Output Summary (Last 24 hours) at 05/21/2023 1436 Last data filed at 05/20/2023 1527 Gross per 24 hour Intake -- Output 200 ml Net -200 ml I/O last 3 completed shifts: In: 280 [IV Piggyback:280] Out: 1000 [Urine:1000] Safety Concerns: at risk for falls Impairments/Disabilities: Cognitive impairment Nutrition Therapy: Current Nutrition Therapy: Oral diet: general Routes of Feeding: oral Liquids: no restrictions Daily Fluid Restriction: no Last Modified Barium Swallow with Video (Video Swallowing Test): not done Treatments at the Time of Hospital Discharge: Respiratory Treatments: NA Oxygen Therapy: is not on home oxygen therapy. Ventilator: No ventilator support Rehab Therapies: physical therapy, occupational therapy, nursing, and aide Weight Bearing Status/Restrictions: no restriction Other Medical Equipment (for information only, NOT a DME order): none Other Treatments: NA Patient's personal belongings (please select all that are sent with patient): none RN SIGNATURE: MANAGEMENT/SOCIAL WORK SECTION Inpatient Status Date: Readmission Risk Assessment Score: @READMISSIONRISKDETAILS@ Discharging to Facility/ Agency Name: [facility] Address:[address] [place] [address] Dialysis Facility (if applicable) Name: Address: Dialysis Schedule: Phone: Fax: Industrial Cleaning Technician/Payroll Master signature: ICIAN SECTION Prognosis: fair Condition at Discharge: stable Rehab Potential (if transferring to Rehab): fair Recommended Labs or Other Treatments After Discharge: needs close supervision gets up without help and that's whyhe falls Physician Certification: I certify the above information and transfer of Kari Allan is necessary for the continuing treatment of the diagnosis listed and that he requires [facility] facility for greater than 30 days. Update Admission H&P: No change in H&P PHYSICIAN SIGNATURE: documented in this encounter [facility] 05-21-2023 Consult note Associated Order (s): IP CONSULT TO INFECTIOUS DISEASES Images from the original note were not included. [facility] - Infectious Diseases Advanced Practice Provider Consult Note Reason for Consult: Covid History of Present Illness: 52 yo male with PMHx significant for anoxic brain injury, COPD, Anxiety, depression, Hx DVT, GERD, HTN, Opioid abuse presented 05/19 from Assisted Living Facility with complaints of fall. Patient reports he has felt unwell for the past few week and has gotten progressively weak. Additionally notes cough, nausea, and diarrhea. Denies fever, chills, CP, SOB, sore throat, congestion, headache, abdominal pain, and any urinary issues. Denies other areas of pain. He had tested positive for Covid-19 on 05/17. Denies recent treatment for Covid. Denies any known ill contacts or recent travel. In the ED, patient afebrile, on room air. Without leukocytosis. 05/19 Covid, Flu, RSV positive for Covid. Blood Cx NGTD. CXR without consolidation. He has been started on Remdesivir and Dexamethasone. Past Medical History: Past Medical History: Diagnosis Date Alcohol abuse with intoxication (HCC) Anemia Anoxic brain damage (CMS/HCC) (HCC) Anxiety Asthma Convulsion (HCC) COPD (chronic obstructive pulmonary disease) (HCC) Depression DVT (deep venous thrombosis) (HCC) Dysphagia Encephalopathy GERD (gastroesophageal reflux disease) Hepatitis Hypertension Impulse control disorder Insomnia, unspecified Need for assistance with personal care Opioid abuse (HCC) Other symbolic dysfunctions Pancreatitis Psychosis (HCC) PTSD (post-traumatic stress disorder) Solitary lung nodule Past Surgical History: Past Surgical History: Procedure Laterality Date APPENDECTOMY BACK SURGERY 5 vertabrae fused CHOLECYSTECTOMY COLONOSCOPY 2014 CT CHEST ANGIOGRAM W AND/OR WO IV CONTRAST 04/08/2022 CT CHEST ANGIOGRAM W AND/OR WO IV CONTRAST 04/08/[address]22 [facility] [address] IMAGING CYST REMOVAL wrist GASTROSTOMY TUBE PLACEMENT 03/01/2017 UPPER GASTROINTESTINAL ENDOSCOPY 02/16/2017 Current Medications: Current Facility-Administered Medications Medication Dose Route Frequency Provider Last Rate Last Admin acetaminophen (Tylenol) tablet 650 mg 650 mg Oral q6h PRN Ashlie M Esterle, DO Or acetaminophen (Tylenol) suppository 650 mg 650 mg Rectal q6h PRN Ashlie M Esterle, DO apixaban (Eliquis) tablet 5 mg 5 mg Oral BID Ashlie M Esterle, DO 5 mg at 05/21/23 1123 baclofen (Lioresal) tablet 10 mg 10 mg Oral TID Ashlie M Esterle, DO 10 mg at 05/21/23 1111 bisacodyl (Dulcolax) EC tablet 5 mg 5 mg Oral Daily PRN Ashlie M Esterle, DO bisacodyl (Dulcolax) suppository 10 mg 10 mg Rectal Daily PRN Ashlie M Esterle, DO divalproex sprinkle (Depakote Sprinkle) DR capsule 500 mg 500 mg Oral TID Ashlie M Esterle, DO 500 mg at 05/21/23 1111 escitalopram (Lexapro) tablet 15 mg 15 mg Oral Daily Ashlie M Esterle, DO 15 mg at 05/21/23 1111 folic acid (Folvite) tablet 1 mg 1 mg Oral Daily Ashlie M Esterle, DO 1 mg at 05/21/23 1111 guaiFENesin (Mucinex) 12 hr tablet 600 mg 600 mg Oral BID PRN Ashlie M Esterle, DO influenza vac subunit quadrivalent (Flucelvax) injection 0.5 mL 0.5 mL IntraMUSCular Prior to discharge Ashlie M Esterle, DO ipratropium-albuterol (Duo-Neb) 0.5-2.5 mg/3 mL nebulizer solution 3 mL 3 mL Nebulization 4x daily PRN Xavier Santiago MD levETIRAcetam (Keppra) tablet 750 mg 750 mg Oral BID Ashlie M Esterle, DO 750 mg at 05/21/23 1111 melatonin tablet 3 mg 3 mg Oral Nightly PRN Ashlie M Esterle, DO 3 mg at 05/20/232117 naltrexone (Depade) tablet 50 mg 50 mg Oral Daily Ashlie M Esterle, DO 50 mg at 05/20/232213 ondansetron ODT (Zofran-ODT) disintegrating tablet 4 mg 4 mg Oral q8h PRN Ashlie M Esterle, DO Or ondansetron (Zofran) injection 4 mg 4 mg IntraVENous q6h PRN Ashlie M Esterle, DO 4 mg at 05/20/232116 pantoprazole (ProtoNix) EC tablet 40 mg 40 mg Oral BID Ashlie M Esterle, DO 40 mg at 05/21/23 1111 polyethylene glycol (PEG) 3350 (Miralax) packet 17 g 17 g Oral Daily Ashlie M Esterle, DO 17 g at 05/21/23 1113 polyethylene glycol (PEG) 3350 (Miralax) packet 17 g 17 g Oral Daily PRN Ashlie M Esterle, DO QUEtiapine (SEROquel) tablet 200 mg 200 mg Oral BID Ashlie M Esterle, DO 200 mg at 05/21/23 1111 remdesivir (Veklury) 100 mg in sodium chloride 0.9 % 250 mL IVPB 100 mg IntraVENous q24h Екатерина Leong PA-C Stopped at 05/21/23 1153 sodium chloride 0.9 % infusion 5-250 mL/hr IntraVENous PRN Ashlie M Esterle, DO sodium chloride 0.9% (NS) flush 10 mL 10 mL IntraVENous 2 times per day Ashlie M Esterle, DO 10 mL at 05/21/23 1114 sodium chloride 0.9% (NS) flush 10 mL 10 mL IntraVENous PRN Ashlie M Esterle, DO tiotropium (Spiriva) 18 MCG per inhalation capsule 18 mcg 1 capsule Inhalation Daily Xavier Santiago MD Allergies: Allergies Allergen Reactions Haloperidol Unknown Other reaction(s): Unknown Copied from mar from halfway [facility] Social History: Social History Socioeconomic History Marital status: Single Spouse name: Not on file Number of children: Not on file Years of education: Not on file Highest education level: Not on file Occupational History Not on file Tobacco Use Smoking status: Some Days Packs/day: 2.00 Years: 30.00 Additional pack years: 0.00 Total pack years: 60.00 Types: Cigarettes Smokeless tobacco: Never Vaping Use Vaping Use: Never used Substance and Sexual Activity Alcohol use: Yes Drug use: Not Currently Sexual activity: Not Currently Other Topics Concern Not on file Social History Narrative Not on file Social Determinants of Health Financial Resource Strain: Not on file Food Insecurity: Not on file Transportation Needs: Not on file Physical Activity: Not on file Stress: Not on file Social Connections: Not on file Intimate Partner Violence: Patient Unable To Answer (05/20/2023) Humiliation, Afraid, Rape, and Kick questionnaire Fear of Current or Ex-Partner: Patient unable to answer Emotionally Abused: Patient unable to answer Physically Abused: Patient unable to answer Sexually Abused: Patient unable to answer Housing Stability: Not on file Family History: Family History Problem Relation Name Age of Onset Diabetes Mother Diabetes Brother Review of Systems: Review of Systems Constitutional: Positive for fatigue. Negative for chills and fever. HENT: Negative for congestion, ear pain, postnasal drip, rhinorrhea, sinus pressure, sinus pain and sore throat. Eyes: Negative for pain, discharge and itching. Respiratory: Positive for cough. Negative for chest tightness and shortness of breath. Cardiovascular: Negative for chest pain, palpitations and leg swelling. Gastrointestinal: Positive for diarrhea and nausea. Negative for abdominal distention, abdominal pain, constipation and vomiting. Genitourinary: Negative for dysuria, flank pain, frequency and urgency. Musculoskeletal: Negative for arthralgias and myalgias. Skin: Negative for color change, rash and wound. Neurological: Positive for weakness. Negative for dizziness, light-headedness and headaches. Vitals: Patient Vitals for the past 24 hrs: BP Temp Temp src Pulse Resp SpO2 05/21/23 1110 (!) 122/90 36.1 C (96.9 F) Temporal 96 18 95 % 05/21/23 0734 95/71 36.8 C (98.2 F) Temporal 82 18 98 % 05/21/23 0253 107/79 (!) 35.8 C (96.4 F) Temporal 62 20 94 % 05/21/23 0004 106/78 36.1 C (97 F) Temporal 83 -- 99 % 05/20/232354 -- -- -- 98 18 -- 05/20/232021 128/78 36.3 C (97.3 F) Temporal 100 18 94 % 05/20/23 1648 123/73 -- -- 89 -- -- 05/20/23 1643 123/73 36.1 C (97 F) Temporal 89 18 94 % 05/20/23 1542 117/82 -- -- 101 -- 97 % Physical Exam: Physical Exam Vitals and nursing note reviewed. Constitutional: Appearance: Normal appearance. He is ill-appearing. Comments: NAD sitting edge of bed. Cooperative. Slow to respond. A&Ox2. HENT: Head: Normocephalic and atraumatic. Right Ear: External ear normal. Left Ear: External ear normal. Mouth/Throat: Mouth: Mucous membranes are moist. Pharynx: Oropharynx is clear. Eyes: Extraocular Movements: Extraocular movements intact. Conjunctiva/sclera: Conjunctivae normal. Pupils: Pupils are equal, round, and reactive to light. Cardiovascular: Rate and Rhythm: Normal rate and regular rhythm. Pulses: Normal pulses. Pulmonary: Comments: Breathing comfortably on room air. No wheezes, rales, rhonchi Abdominal: General: Abdomen is flat. There is no distension. Palpations: Abdomen is soft. Tenderness: There is no abdominal tenderness. Musculoskeletal: Right lower leg: No edema. Left lower leg: No edema. Skin: General: Skin is warm and dry. Comments: tattoos Neurological: Mental Status: He is alert. Labs: Recent Labs 05/19/23225605/20/23 2152 NA 134* -- K 4.8 -- CL 99 -- CO2 25 -- BUN 14 -- CREATININE 1.39* -- GLUCOSE 118* -- CALCIUM 8.9 -- PROT 8.0 -- BILITOT 1.2 -- ALKPHOS 86 -- AST 92* -- ALT 51* -- PROCAL -- 0.12* Recent Labs 05/19/232256 WBC 8.5 HGB 15.9 HCT 45.8 PLT 157 Micro: No results for input(s): COVID19 in the last 72 hours. 05/19 Blood Cx: NGTD 05/19 Covid, Flu, RSV: + Covid Lines: PIV Radiography/Echo/Other: 05/[address] evidence of an acute intracranial abnormality. Mild generalized parenchymal volume loss. Nonspecific mucosal thickening of the paranasal sinuses as discussed. 05/20 CXR Lines, tubes, and devices: None. Lungs and pleura: No consolidation. No pleural effusion or pneumothorax. Cardiomediastinal silhouette: Stable normal cardiomediastinal silhouette. Other: Bony thorax appears grossly intact. Antimicrobials,Start/End Dates: Remdesivir: 05/20- Impression: Covid-19 Positive 05/17 Weakness/fall COPD Hx anoxic brain injury Plan: Following patient for Covid-19. No evidence for LRTI. He is currently not requiring any oxygen and CXR without infiltrates. Plan to complete 3 day course of Remdesivir tomorrow, 05/22, given risk factors for progression. Case and plan discussed with Dr. Soto. ID to sign off, please call if needed. Total time 55 minutes on this day of encounter includes counseling, coordinating plan of care, record and documentation review before and after visit including documentation and time not explicitly included on EMR time stamp for accounting for open encounter. Екатерина ROUSE PA-C [facility] Work Phone: 05-21-2023 Consult note Associated Order (s): IP CONSULT TO INFECTIOUS DISEASES Images from the original note were not included. [facility] - Infectious Diseases Advanced Practice Provider Consult Note Reason for Consult: Covid History of Present Illness: 52 yo male with PMHx significant for anoxic brain injury, COPD, Anxiety, depression, Hx DVT, GERD, HTN, Opioid abuse presented [facility] from [facility] with complaints of fall. Patient reports he has felt unwell for the past few week and has gotten progressively weak. Additionally notes cough, nausea, and diarrhea. Denies fever, chills, CP, SOB, sore throat, congestion, headache, abdominal pain, and any urinary issues. Denies other areas of pain. He had tested positive for Covid-19 on 05/17. Denies recent treatment for Covid. Denies any known ill contacts or recent travel. In the ED, patient afebrile, on room air. Without leukocytosis. 05/19 Covid, Flu, RSV positive for Covid. Blood Cx NGTD. CXR without consolidation. He has been started on Remdesivir and Dexamethasone. Past Medical History: Past Medical History: Diagnosis Date Alcohol abuse with intoxication (HCC) Anemia Anoxic brain damage (CMS/HCC) (HCC) Anxiety Asthma Convulsion (HCC) COPD (chronic obstructive pulmonary disease) (HCC) Depression DVT (deep venous thrombosis) (HCC) Dysphagia Encephalopathy GERD (gastroesophageal reflux disease) Hepatitis Hypertension Impulse control disorder Insomnia, unspecified Need for assistance with personal care Opioid abuse (HCC) Other symbolic dysfunctions Pancreatitis Psychosis (HCC) PTSD (post-traumatic stress disorder) Solitary lung nodule Past Surgical History: Past Surgical History: Procedure Laterality Date APPENDECTOMY BACK SURGERY 5 vertabrae fused CHOLECYSTECTOMY COLONOSCOPY 2014 CT CHEST ANGIOGRAM W AND/OR WO IV CONTRAST 04/08/2022 CT CHEST ANGIOGRAM W AND/OR WO IV CONTRAST 04/08/2022 [facility] CT IMAGING CYST REMOVAL wrist GASTROSTOMY TUBE PLACEMENT 03/01/2017 UPPER GASTROINTESTINAL ENDOSCOPY 02/16/2017 Current Medications: Current Facility-Administered Medications Medication Dose Route Frequency Provider Last Rate Last Admin acetaminophen (Tylenol) tablet 650 mg 650 mg Oral q6h PRN Ashlie M Esterle, DO Or acetaminophen (Tylenol) suppository 650 mg 650 mg Rectal q6h PRN Ashlie M Esterle, DO apixaban (Eliquis) tablet 5 mg 5 mg Oral BID Ashlie M Esterle, DO 5 mg at 05/21/23 1123 baclofen (Lioresal) tablet 10 mg 10 mg Oral TID Ahslie M Esterle, DO 10 mg at 05/21/23 1111 bisacodyl (Dulcolax) EC tablet 5 mg 5 mg Oral Daily PRN Ashlie M Esterle, DO bisacodyl (Dulcolax) suppository 10 mg 10 mg Rectal Daily PRN Ashlie M Esterle, DO divalproex sprinkle (Depakote Sprinkle) DR capsule 500 mg 500 mg Oral TID Ashlie M Esterle, DO 500 mg at 05/21/23 1111 escitalopram (Lexapro) tablet 15 mg 15 mg Oral Daily Ashlie M Esterle, DO 15 mg at 05/21/23 1111 folic acid (Folvite) tablet 1 mg 1 mg Oral Daily Ashlie M Esterle, DO 1 mg at 05/21/23 1111 guaiFENesin (Mucinex) 12 hr tablet 600 mg 600 mg Oral BID PRN Ashlie M Esterle, DO influenza vac subunit quadrivalent (Flucelvax) injection 0.5 mL 0.5 mL IntraMUSCular Prior to discharge Ashlie M Esterle, DO ipratropium-albuterol (Duo-Neb) 0.5-2.5 mg/3 mL nebulizer solution 3 mL 3 mL Nebulization 4x daily PRN Xavier Santiago MD levETIRAcetam (Keppra) tablet 750 mg 750 mg Oral BID Ashlie M Esterle, DO 750 mg at 05/21/23 1111 melatonin tablet 3 mg 3 mg Oral Nightly PRN Ashlie M Esterle, DO 3 mg at 05/20/232117 naltrexone (Depade) tablet 50 mg 50 mg Oral Daily Ashlie M Esterle, DO 50 mg at 05/20/232213 ondansetron ODT (Zofran-ODT) disintegrating tablet 4 mg 4 mg Oral q8h PRN Ashlie M Esterle, DO Or ondansetron (Zofran) injection 4 mg 4 mg IntraVENous q6h PRN Ashlie M Esterle, DO 4 mg at 05/20/232116 pantoprazole (ProtoNix) EC tablet 40 mg 40 mg Oral BID Ashlie M Esterle, DO 40 mg at 05/21/23 1111 polyethylene glycol (PEG) 3350 (Miralax) packet 17 g 17 g Oral Daily Ashlie M Esterle, DO 17 g at 05/21/23 1113 polyethylene glycol (PEG) 3350 (Miralax) packet 17 g 17 g Oral Daily PRN Ashlie M Esterle, DO QUEtiapine (SEROquel) tablet 200 mg 200 mg Oral BID Ashlie M Esterle, DO 200 mg at 05/21/23 1111 remdesivir (Veklury) 100 mg in sodium chloride 0.9 % 250 mL IVPB 100 mg IntraVENous q24h Екатерина Leong PA-C Stopped at 05/21/23 1153 sodium chloride 0.9 % infusion 5-250 mL/hr IntraVENous PRN Ashlie M Esterle, DO sodium chloride 0.9% (NS) flush 10 mL 10 mL IntraVENous 2 times per day Ashlie M Esterle, DO 10 mL at 05/21/23 1114 sodium chloride 0.9% (NS) flush 10 mL 10 mL IntraVENous PRN Ashlie M Esterle, DO tiotropium (Spiriva) 18 MCG per inhalation capsule 18 mcg 1 capsule Inhalation Daily Xavier Santiago MD Allergies: Allergies Allergen Reactions Haloperidol Unknown Other reaction(s): Unknown Copied from mar from halfway [facility] Social History: Social History Socioeconomic History Marital status: Single Spouse name: Not on file Number of children: Not on file Years of education: Not on file Highest education level: Not on file Occupational History Not on file Tobacco Use Smoking status: Some Days Packs/day: 2.00 Years: 30.00 Additional pack years: 0.00 Total pack years: 60.00 Types: Cigarettes Smokeless tobacco: Never Vaping Use Vaping Use: Never used Substance and Sexual Activity Alcohol use: Yes Drug use: Not Currently Sexual activity: Not Currently Other Topics Concern Not on file Social History Narrative Not on file Social Determinants of Health Financial Resource Strain: Not on file Food Insecurity: Not on file Transportation Needs: Not on file Physical Activity: Not on file Stress: Not on file Social Connections: Not on file Intimate Partner Violence: Patient Unable To Answer (05/20/2023) Humiliation, Afraid, Rape, and Kick questionnaire Fear of Current or Ex-Partner: Patient unable to answer Emotionally Abused: Patient unable to answer Physically Abused: Patient unable to answer Sexually Abused: Patient unable to answer Housing Stability: Not on file Family History: Family History Problem Relation Name Age of Onset Diabetes Mother Diabetes Brother Review of Systems: Review of Systems Constitutional: Positive for fatigue. Negative for chills and fever. HENT: Negative for congestion, ear pain, postnasal drip, rhinorrhea, sinus pressure, sinus pain and sore throat. Eyes: Negative for pain, discharge and itching. Respiratory: Positive for cough. Negative for chest tightness and shortness of breath. Cardiovascular: Negative for chest pain, palpitations and leg swelling. Gastrointestinal: Positive for diarrhea and nausea. Negative for abdominal distention, abdominal pain, constipation and vomiting. Genitourinary: Negative for dysuria, flank pain, frequency and urgency. Musculoskeletal: Negative for arthralgias and myalgias. Skin: Negative for color change, rash and wound. Neurological: Positive for weakness. Negative for dizziness, light-headedness and headaches. Vitals: Patient Vitals for the past 24 hrs: BP Temp Temp src Pulse Resp SpO2 05/21/23 1110 (!) 122/90 36.1 C (96.9 F) Temporal 96 18 95 % 05/21/23 0734 95/71 36.8 C (98.2 F) Temporal 82 18 98 % 05/21/23 0253 107/79 (!) 35.8 C (96.4 F) Temporal 62 20 94 % 05/21/23 0004 106/78 36.1 C (97 F) Temporal 83 -- 99 % 05/20/23 2355 -- -- -- 98 18 -- 05/20/23 2022 128/78 36.3 C (97.3 F) Temporal 100 18 94 % 05/20/23 1648 123/73 -- -- 89 -- -- 05/20/23 1643 123/73 36.1 C (97 F) Temporal 89 18 94 % 05/20/23 1542 117/82 -- -- 101 -- 97 % Physical Exam: Physical Exam Vitals and nursing note reviewed. Constitutional: Appearance: Normal appearance. He is ill-appearing. Comments: NAD sitting edge of bed. Cooperative. Slow to respond. A&Ox2. HENT: Head: Normocephalic and atraumatic. Right Ear: External ear normal. Left Ear: External ear normal. Mouth/Throat: Mouth: Mucous membranes are moist. Pharynx: Oropharynx is clear. Eyes: Extraocular Movements: Extraocular movements intact. Conjunctiva/sclera: Conjunctivae normal. Pupils: Pupils are equal, round, and reactive to light. Cardiovascular: Rate and Rhythm: Normal rate and regular rhythm. Pulses: Normal pulses. Pulmonary: Comments: Breathing comfortably on room air. No wheezes, rales, rhonchi Abdominal: General: Abdomen is flat. There is no distension. Palpations: Abdomen is soft. Tenderness: There is no abdominal tenderness. Musculoskeletal: Right lower leg: No edema. Left lower leg: No edema. Skin: General: Skin is warm and dry. Comments: tattoos Neurological: Mental Status: He is alert. Labs: Recent Labs 05/19/237 05/20/23 2152 NA 134* -- K 4.8 -- CL 99 -- CO2 25 -- BUN 14 -- CREATININE 1.39* -- GLUCOSE 118* -- CALCIUM 8.9 -- PROT 8.0 -- BILITOT 1.2 -- ALKPHOS 86 -- AST 92* -- ALT 51* -- PROCAL -- 0.12* Recent Labs 05/19/23 2257 WBC 8.5 HGB 15.9 HCT 45.8 PLT 157 Micro: No results for input(s): COVID19 in the last 72 hours. 05/19 Blood Cx: NGTD 05/19 Covid, Flu, RSV: + Covid Lines: PIV Radiography/Echo/Other: 05/[address] evidence of an acute intracranial abnormality. Mild generalized parenchymal volume loss. Nonspecific mucosal thickening of the paranasal sinuses as discussed. 05/20 CXR Lines, tubes, and devices: None. Lungs and pleura: No consolidation. No pleural effusion or pneumothorax. Cardiomediastinal silhouette: Stable normal cardiomediastinal silhouette. Other: Bony thorax appears grossly intact. Antimicrobials,Start/End Dates: Remdesivir: 05/20- Impression: Covid-19 Positive 05/17 Weakness/fall COPD Hx anoxic brain injury Plan: Following patient for Covid-19. No evidence for LRTI. He is currently not requiring any oxygen and CXR without infiltrates. Plan to complete 3 day course of Remdesivir tomorrow, 05/22, given risk factors for progression. Case and plan discussed with Dr. Soto. ID to sign off, please call if needed. Total time 55 minutes on this day of encounter includes counseling, coordinating plan of care, record and documentation review before and after visit including documentation and time not explicitly included on EMR time stamp for accounting for open encounter. Екатерина ROUSE PA-C Associated Order(s): Inpatient consult to Pulmonology PULMONOLOGY CONSULT NOTE 05/21/2023 9:35 AM Reason for consult: covid has trach Inpatient consult to Pulmonology Consult performed by: Xavier Santiago MD Consult ordered by: Ashlie Alcantara DO Subjective: Admit Date: 05/19/2023 PCP: Antonella Marrero HPI: Kari Allan is a 52-year-old male with history notable for neurocognitive disorder due to anoxic brain injury from alcohol withdrawal and status epilepticus in 2017, prior history of polysubstance abuse, long-term halfway resident, history of COPD, history of DVT on apixaban, hiatal hernia, gastroesophageal reflux disease. Recently seen by Dr. Kapoor in pulmonary clinic for preop pulmonary evaluation prior to endoscopy and hiatal hernia surgery. PFTs and home sleep apnea test were ordered which had not yet been performed. He also saw cardiology and TTE showed LVEF 71%, mild septal thickening, normal wall motion, dilated RV with moderately reduced systolic function. Lung cancer screening CT from earlier this month was lung RADS 1 without any suspicious nodules. Not much emphysema. Patient is thought to have more chronic bronchitis phenotype COPD. The patient was brought to the ED on 05/19/2023 from his ECF after multiple falls. Patient noted he felt weak, short of breath, and lightheaded. He had tested positive for SARS-CoV-2 2 days prior to presentation. Currently says he is breathing okay. Not coughing. In the ED, he was afebrile but tachycardic to 120s, BP 140/84. Initially he was on room air with SpO2 93%. He remains on room air now. Labs notable for mild hyponatremia to 134. Creatinine 1.39. Mildly elevated ALT and AST. Negative troponin and negative NT proBNP. Initial lactate was 2.4, but subsequently normalized to 1.4. Procalcitonin 0.12. CRP was 71. Normal leukocyte count. SARS-CoV-2 PCR is positive. RSV, and influenza are negative. AP portable chest x-ray shows no parenchymal or interstitial infiltrates. Normal cardiomediastinal silhouette. Normal bilateral costophrenic angles. No pneumothorax. The patient was started on remdesivir on 05/20/2023. He received a total of 14 mg of dexamethasone on 05/20/2023. Assessment and Plan: SARS-CoV2 positive Reported history of COPD History of polysubstance abuse Neurocognitive disorder; reported history of anoxic brain injury History of Dvt, Rx with apixaban SARS-CoV2 PCR positive but without evidence of LRTI; not hypoxemic. Stop dexamethasone Has some underlying risk factors for severe disease; can treat with paxlovid; but if inpatient for other reasons, okay to continue remdesivir Outpatient PFTs, ordered; not yet performed. No significant emphysema on recent outpatient CT chest; maybe chronic bronchitis phenotype COPD. No history of exacerbations or significant eosinophilia. Can use empiric LABA/LAMA inhaler - Stiolto or Anoro. Follow-up outpatient pulmonary as previously arranged. Pulmonary will sign off Please call us back if there is a change in patient condition or reassessment is required for any reason. Xavier Santiago MD Pulmonary, Critical Care, and Sleep Medicine Portions of the information within this encounter were entered using an electronic dictation system. Best attempts were made to edit/proofread the information prior to note completion. Despite the review of information, some errors may remain. If there are questions related to the information contained within the note please contact the signing physician directly. Past Medical History: Past Medical History: Diagnosis Date Alcohol abuse with intoxication (HCC) Anemia Anoxic brain damage (CMS/HCC) (HCC) Anxiety Asthma Convulsion (HCC) COPD (chronic obstructive pulmonary disease) (HCC) Depression DVT (deep venous thrombosis) (HCC) Dysphagia Encephalopathy GERD (gastroesophageal reflux disease) Hepatitis Hypertension Impulse control disorder Insomnia, unspecified Need for assistance with personal care Opioid abuse (HCC) Other symbolic dysfunctions Pancreatitis Psychosis (HCC) PTSD (post-traumatic stress disorder) Solitary lung nodule Past Surgical History: Past Surgical History: Procedure Laterality Date APPENDECTOMY BACK SURGERY 5 vertabrae fused CHOLECYSTECTOMY COLONOSCOPY 2014 CT CHEST ANGIOGRAM W AND/OR WO IV CONTRAST 04/08/2022 CT CHEST ANGIOGRAM W AND/OR WO IV CONTRAST 04/08/2022 [facility] CT IMAGING CYST REMOVAL wrist GASTROSTOMY TUBE PLACEMENT 03/01/2017 UPPER GASTROINTESTINAL ENDOSCOPY 02/16/2017 Allergies: Allergies Allergen Reactions Haloperidol Unknown Other reaction(s): Unknown Copied from mar from halfway [facility] Social History: Social History Substance and Sexual Activity Alcohol Use Yes Social History Substance and Sexual Activity Drug Use Not Currently Social History Tobacco Use Smoking Status Some Days Packs/day: 2.00 Years: 30.00 Additional pack years: 0.00 Total pack years: 60.00 Types: Cigarettes Smokeless Tobacco Never Family History: Family History Problem Relation Name Age of Onset Diabetes Mother Diabetes Brother Review of Systems Constitutional: Positive for fatigue. Negative for appetite change, chills, fever and unexpected weight change. HENT: Positive for congestion. Negative for nosebleeds, postnasal drip, rhinorrhea and trouble swallowing. Eyes: Negative for pain and visual disturbance. Respiratory: Positive for shortness of breath. Negative for cough, chest tightness, wheezing and stridor. Cardiovascular: Negative for chest pain, palpitations and leg swelling. Gastrointestinal: Negative for abdominal pain, diarrhea, nausea and vomiting. Genitourinary: Negative for difficulty urinating, dysuria and hematuria. Musculoskeletal: Negative for arthralgias, joint swelling and myalgias. Skin: Negative for color change, pallor, rash and wound. Neurological: Negative for syncope, weakness, light-headedness and headaches. Hematological: Negative for adenopathy. Does not bruise/bleed easily. Psychiatric/Behavioral: Negative for confusion, dysphoric mood and sleep disturbance. Medications: Scheduled Meds:apixaban, 5 mg, Oral, BID baclofen, 10 mg, Oral, TID dexAMETHasone, 6 mg, Oral, Daily divalproex sprinkle, 500 mg, Oral, TID escitalopram, 15 mg, Oral, Daily folic acid, 1 mg, Oral, Daily influenza, 0.5 mL, IntraMUSCular, Prior to discharge levETIRAcetam, 750 mg, Oral, BID naltrexone, 50 mg, Oral, Daily pantoprazole, 40 mg, Oral, BID polyethylene glycol (PEG) 3350, 17 g, Oral, Daily QUEtiapine, 200 mg, Oral, BID remdesivir (Veklury) 100 mg in sodium chloride 0.9 % 250 mL IVPB, 100 mg, IntraVENous, q24h sodium chloride 0.9%, 10 mL, IntraVENous, 2 times per day Continuous Infusions: Data: [facility] within last 24 hours- BMP: Recent Labs 05/19/232256 NA 134* K 4.8 CL 99 CO2 25 BUN 14 CREATININE 1.39* CALCIUM 8.9 LFTs: Recent Labs 05/19/23225605/20/23 1050 AST 92* -- ALT 51* -- PROT 8.0 -- ALBUMIN 4.4 -- BILITOT 1.2 -- BILIRUBINU -- Negative ALKPHOS 86 -- Glucose: Recent Labs 05/19/232256 GLUCOSE 118* Procal: Recent Labs 05/20/23 2152 PROCAL 0.12* CBC: Recent Labs 05/19/232256 WBC 8.5 HGB 15.9 HCT 45.8 PLT 157 MCV 90.9 RDW 13.4 ABGs: No results for input(s): PHART, MLG0DWY, PO2ART, LRF3XPW, SO2ART, P4MQNZAN in the last 72 hours. Lactic Acid: Recent Labs 05/19/23 2257 05/20/23 0240 05/20/23 0649 LACTATE 2.4* 2.6* 1.4 INR: No results for input(s): INR in the last 72 hours. Cardiac Injury Profile: Recent Labs 05/19/232256 TROPONINI <0.012 Labs in Last 3 months: Lab Results Component Value Date INR 1.0 04/08/2022 Microbiology- Urine Cx: No results found for: URINECX Blood Cx: Lab Results Component Value Date BLOODCX No growth at 24 hours 05/19/2023 BLOODCX No growth at 24 hours 05/19/2023 Sputum Cx: No results found for: RESPCULT Gram Stain: No results found for: LABGRAM PNA PCR: No results found for: HUMANMETAPNE COVID19: No results found for: COVID19 Legionella Ag: No results found for: LEGIONELLAPN Strep Ag: No results for input(s): STREPPNEUMO in the last 72 hours. Imaging- CXR portable:Results for orders placed during the hospital encounter of 05/19/23 XR chest 1 view Narrative Patient Name: KARI ALLAN : 1970 [facility]#: [id number] Exam Date/Time: 05/20/2023 01:58 Procedure: XR CHEST 1 VIEW Ordering Provider: LANDEROS JOSEPH Reason For Exam: DYSPNEA EXAMINATION: CHEST RADIOGRAPH (SINGLE VIEW AP OR PA) Clinical History: DYSPNEA Comparison: Radiograph 11/14/2021 RESULT: See impression Impression Lines, tubes, and devices: None. Lungs and pleura: No consolidation. No pleural effusion or pneumothorax. Cardiomediastinal silhouette: Stable normal cardiomediastinal silhouette. Other: Bony thorax appears grossly intact. Report Dictated on Electronically Signed By: Tommie Person MD Electronically Signed Date/Time: 05/20/2023 3:17 AM EST CXR (2V): No results found for this or any previous visit. CT Chest: No results found for this or any previous visit. CTA Chest: Results for orders placed during the hospital encounter of 04/08/22 CT chest angiogram w and/or wo IV contrast Narrative Patient Name: KARI ALLAN [facility]#: [id number] Exam Date/Time: 04/08/2022 13:48 Procedure: CT CHEST ANGIOGRAM W AND/OR WO IV CONTRAST Ordering Provider: ERIC NICHOLAS Reason For Exam: CTA chest with and without contrast History: chest pain Protocol: 1 mm images after IV contrast, 3D rendering performed by me on a separate workstation No evidence of aortic dissection or pulmonary embolism. Diffuse groundglass infiltrates in the right lung. Consider Covid pneumonia. No pleural effusions. No lymphadenopathy. Small hiatal hernia. Impression Diffuse groundglass infiltrates in the right lung. Consider Covid pneumonia. Small hiatal hernia. Report Dictated on Electronically Signed By: Jorden Emery Electronically Signed Date/Time: 04/08/2022 1:52 PM EST Other Studies: Reviewed and as per electronic record. CxR/CT images personally reviewed by me when available; salient findings summarized in A/P. Objective: Vitals: BP 95/71 (BP Location: Right arm, Patient Position: Lying) Pulse 82 Temp 36.8 C (98.2 F) (Temporal) Resp 18 SpO2 98% Physical Exam Constitutional: General: He is not in acute distress. Appearance: He is well-developed. He is not ill-appearing. HENT: Head: Normocephalic and atraumatic. Right Ear: External ear normal. Left Ear: External ear normal. Nose: Nose normal. Mouth/Throat: Mouth: Mucous membranes are moist. Pharynx: Oropharynx is clear. No oropharyngeal exudate. Eyes: General: No scleral icterus. Right eye: No discharge. Left eye: No discharge. Extraocular Movements: Extraocular movements intact. Conjunctiva/sclera: Conjunctivae normal. Pupils: Pupils are equal, round, and reactive to light. Neck: Thyroid: No thyromegaly. Vascular: No JVD. Cardiovascular: Rate and Rhythm: Normal rate and regular rhythm. Pulses: Normal pulses. Heart sounds: Normal heart sounds. No murmur heard. Pulmonary: Effort: Pulmonary effort is normal. No respiratory distress. Breath sounds: Normal breath sounds. No stridor. No wheezing or rhonchi. Abdominal: General: There is no distension. Palpations: Abdomen is soft. There is no mass. Tenderness: There is no abdominal tenderness. There is no guarding. Musculoskeletal: General: No swelling or deformity. Normal range of motion. Cervical back: Normal range of motion and neck supple. Right lower leg: No edema. Left lower leg: No edema. Lymphadenopathy: Cervical: No cervical adenopathy. Skin: General: Skin is warm and dry. Coloration: Skin is not jaundiced. Findings: No rash. Comments: Numerous tattoos on torso Neurological: Mental Status: He is alert and oriented to person, place, and time. Cranial Nerves: No cranial nerve deficit. Sensory: No sensory deficit. documented in this encounter [facility] 05-21-2023 Note Formatting of this n ote might be different from the original. In the event that patient was to discharge over weekend and return to [facility], an ambulance sheet has been placed on chart. [facility] 05-21-2023 Note Formatting of this n ote might be different from the original. In the event that patient was to discharge over weekend and return to [facility], an ambulance sheet has been placed on chart. [facility] 05-21-2023 Note Formatting of this n ote might be different from the original. Return referral placed to [facility] via [facility] per [facility] request. Await review and response regarding ability to accept. [facility] notified. [facility] 05-21-2023 Note Formatting of this n ote might be different from the original. Return referral placed to [facility] via [facility] per [facility] request. Await review and response regarding ability to accept. T[facility] notified. [facility] 05-21-2023 Note Formatting of this n ote might be different from the original. 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 as indicated: Confirmation of Payer with patient/family: Payer Name: [place]: Confirmation of Primary Care Physician: Primary Caregiver: If assistance needed, confirmed caregiver ready, willing and able to care for patient at discharge: Confirmed with: Living Arrangements Current Residence: ([facility]) Number of Floors Number of Entry Steps: Bed/Bath Levels: Facility: Facility Name: Plan to Return: Lives with: Alone Support Systems: manager city/social services coordinator (Staff) Activities of Daily Living Ambulation: Bathing/Dressing: Elimination/Continence/Toileting: Feeding: Who Assists with Activities of Daily Living: Instrumental Activities of Daily Living Prescription Coverage: Yes Pharmacy Used: Facility Medication Management: Medication dispenser Who assists with medication securing and setup?: Facility staff Transportation/Shopping: Assistance Provider Transportation/Shopping Assistance Provider Name: Facility Transportation Mode: Needs Assistance with Transportation at Discharge: Yes Meal Preparation: Assistance Provider Meal Prep Assistance Provider Name: Facility Staff Laundry/Cleaning: Assistance Provider Laundry/Cleaning Assistance Provider Name: Facility Staff Finances/Bill Paying: Assistance Provider Finances/Bill Payer Assistance Provider Name: Facility Staff Communication: Types of Care Services/Equipment Utilized Care Services: Dialysis Type: Durable Medical Equipment: Wheelchair (standard or power) Patient's Goal/Discharge Plan Patient expects to be discharged to: [facility] Discharge Planning Actions: Patient's Choice Rights and [employer] and Collaborative Relationships Disclosed as Indicated for Post-Acute Care: Interdisciplinary Team Engagement: Social Work Referral for: Additional Information: Patient admitted to with Covid, on room air, oral decadron and iv remdesivir. ID and pulmonology following. Attempted to reach patient in his room multiple times without success. Contacted [facility] and confirmed he is a long-term resident and that he uses a wheelchair. Referral requested to [facility] for return. Gina Green RN [facility] 05-21-2023 Note Formatting of this n ote might be different from the original. 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 as indicated: Confirmation of Payer with patient/family: Payer Name: : Confirmation of Primary Care Physician: Primary Caregiver: If assistance needed, confirmed caregiver ready, willing and able to care for patient at discharge: Confirmed with: Living Arrangements Current Residence: ([facility]) Number of Floors Number of Entry Steps: Bed/Bath Levels: Facility: Facility Name: Plan to Return: Lives with: Alone Support Systems: manager city/social services coordinator (Staff) Activities of Daily Living Ambulation: Bathing/Dressing: Elimination/Continence/Toileting: Feeding: Who Assists with Activities of Daily Living: Instrumental Activities of Daily Living Prescription Coverage: Yes Pharmacy Used: Facility Medication Management: Medication dispenser Who assists with medication securing and setup?: Facility staff Transportation/Shopping: Assistance Provider Transportation/Shopping Assistance Provider Name: Facility Transportation Mode: Needs Assistance with Transportation at Discharge: Yes Meal Preparation: Assistance Provider Meal Prep Assistance Provider Name: Facility Staff Laundry/Cleaning: Assistance Provider Laundry/Cleaning Assistance Provider Name: Facility Staff Finances/Bill Paying: Assistance Provider Finances/Bill Payer Assistance Provider Name: Facility Staff Communication: Types of Care Services/Equipment Utilized Care Services: Dialysis Type: Durable Medical Equipment: Wheelchair (standard or power) Patient's Goal/Discharge Plan Patient expects to be discharged to: [facility] Discharge Planning Actions: Patient's Choice Rights and [employer] and Collaborative Relationships Disclosed as Indicated for Post-Acute Care: Interdisciplinary Team Engagement: Social Work Referral for: Additional Information: Patient admitted to with Covid, on room air, oral decadron and iv remdesivir. ID and pulmonology following. Attempted to reach patient in his room multiple times without success. Contacted [facility] and confirmed he is a long-term resident and that he uses a wheelchair. Referral requested to [facility] for return. 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 Recently seen by Dr. Kapoor in pulmonary clinic for preop pulmonary evaluation prior to endoscopy and hiatal hernia surgery. PFTs and home sleep apnea test were ordered which had not yet been performed. He also saw cardiology and TTE showed LVEF 71%, mild septal thickening, normal wall motion, dilated RV with moderately reduced systolic function. Lung cancer screening CT from earlier this month was lung RADS 1 without any suspicious nodules. Not much emphysema. Patient is thought to have more chronic bronchitis phenotype COPD. The patient was brought to the ED on 05/19/2023 from his ECF after multiple falls. Patient noted he felt weak, short of breath, and lightheaded. He had tested positive for SARS-CoV-2 2 days prior to presentation. Currently says he is breathing okay. Not coughing. In the ED, he was afebrile but tachycardic to 120s, BP 140/84. Initially he was on room air with SpO2 93%. He remains on room air now. Labs notable for mild hyponatremia to 134. Creatinine 1.39. Mildly elevated ALT and AST. Negative troponin and negative NT proBNP. Initial lactate was 2.4, but subsequently normalized to 1.4. Procalcitonin 0.12. CRP was 71. Normal leukocyte count. SARS-CoV-2 PCR is positive. RSV, and influenza are negative. AP portable chest x-ray shows no parenchymal or interstitial infiltrates. Normal cardiomediastinal silhouette. Normal bilateral costophrenic angles. No pneumothorax. The patient was started on remdesivir on 05/20/2023. He received a total of 14 mg of dexamethasone on 05/20/2023. Assessment and Plan: SARS-CoV2 positive Reported history of COPD History of polysubstance abuse Neurocognitive disorder; reported history of anoxic brain injury History of Dvt, Rx with apixaban SARS-CoV2 PCR positive but without evidence of LRTI; not hypoxemic. Stop dexamethasone Has some underlying risk factors for severe disease; can treat with paxlovid; but if inpatient for other reasons, okay to continue remdesivir Outpatient PFTs, ordered; not yet performed. No significant emphysema on recent outpatient CT chest; maybe chronic bronchitis phenotype COPD. No history of exacerbations or significant eosinophilia. Can use empiric LABA/LAMA inhaler - Stiolto or Anoro. Follow-up outpatient pulmonary as previously arranged. Pulmonary will sign off Please call us back if there is a change in patient condition or reassessment is required for any reason. Xavier Santiago MD Pulmonary, Critical Care, and Sleep Medicine Portions of the information within this encounter were entered using an electronic dictation system. Best attempts were made to edit/proofread the information prior to note completion. Despite the review of information, some errors may remain. If there are questions related to the information contained within the note please contact the signing physician directly. Past Medical History: Past Medical History: Diagnosis Date Alcohol abuse with intoxication (HCC) Anemia Anoxic brain damage (CMS/HCC) (HCC) Anxiety Asthma Convulsion (HCC) COPD (chronic obstructive pulmonary disease) (HCC) Depression DVT (deep venous thrombosis) (HCC) Dysphagia Encephalopathy GERD (gastroesophageal reflux disease) Hepatitis Hypertension Impulse control disorder Insomnia, unspecified Need for assistance with personal care Opioid abuse (HCC) Other symbolic dysfunctions Pancreatitis Psychosis (HCC) PTSD (post-traumatic stress disorder) Solitary lung nodule Past Surgical History: Past Surgical History: Procedure Laterality Date APPENDECTOMY BACK SURGERY 5 vertabrae fused CHOLECYSTECTOMY COLONOSCOPY 2014 CT CHEST ANGIOGRAM W AND/OR WO IV CONTRAST 04/08/2022 CT CHEST ANGIOGRAM W AND/OR WO IV CONTRAST 04/08/[address]22 [facility] IMAGING CYST REMOVAL wrist GASTROSTOMY TUBE PLACEMENT 03/01/2017 UPPER GASTROINTESTINAL ENDOSCOPY 02/16/2017 Allergies: Allergies Allergen Reactions Haloperidol Unknown Other reaction(s): Unknown Copied from mar from halfway [facility] Social History: Social History Substance and Sexual Activity Alcohol Use Yes Social History Substance and Sexual Activity Drug Use Not Currently Social History Tobacco Use Smoking Status Some Days Packs/day: 2.00 Years: 30.00 Additional pack years: 0.00 Total pack years: 60.00 Types: Cigarettes Smokeless Tobacco Never Family History: Family History Problem Relation Name Age of Onset Diabetes Mother Diabetes Brother Review of Systems Constitutional: Positive for fatigue. Negative for appetite change, chills, fever and unexpected weight change. HENT: Positive for congestion. Negative for nosebleeds, postnasal drip, rhinorrhea and trouble swallowing. Eyes: Negative for pain and visual disturbance. Respiratory: Positive for shortness of breath. Negative for cough, chest tightness, wheezing and stridor. Cardiovascular: Negative for chest pain, palpitations and leg swelling. Gastrointestinal: Negative for abdominal pain, diarrhea, nausea and vomiting. Genitourinary: Negative for difficulty urinating, dysuria and hematuria. Musculoskeletal: Negative for arthralgias, joint swelling and myalgias. Skin: Negative for color change, pallor, rash and wound. Neurological: Negative for syncope, weakness, light-headedness and headaches. Hematological: Negative for adenopathy. Does not bruise/bleed easily. Psychiatric/Behavioral: Negative for confusion, dysphoric mood and sleep disturbance. Medications: Scheduled Meds:apixaban, 5 mg, Oral, BID baclofen, 10 mg, Oral, TID dexAMETHasone, 6 mg, Oral, Daily divalproex sprinkle, 500 mg, Oral, TID escitalopram, 15 mg, Oral, Daily folic acid, 1 mg, Oral, Daily influenza, 0.5 mL, IntraMUSCular, Prior to discharge levETIRAcetam, 750 mg, Oral, BID naltrexone, 50 mg, Oral, Daily pantoprazole, 40 mg, Oral, BID polyethylene glycol (PEG) 3350, 17 g, Oral, Daily QUEtiapine, 200 mg, Oral, BID remdesivir (Veklury) 100 mg in sodium chloride 0.9 % 250 mL IVPB, 100 mg, IntraVENous, q24h sodium chloride 0.9%, 10 mL, IntraVENous, 2 times per day Continuous Infusions: Data: [facility] within last 24 hours- BMP: Recent Labs 05/19/232256 NA 134* K 4.8 CL 99 CO2 25 BUN 14 CREATININE 1.39* CALCIUM 8.9 LFTs: Recent Labs 05/19/23225605/20/23 1050 AST 92* -- ALT 51* -- PROT 8.0 -- ALBUMIN 4.4 -- BILITOT 1.2 -- BILIRUBINU -- Negative ALKPHOS 86 -- Glucose: Recent Labs 05/19/232256 GLUCOSE 118* Procal: Recent Labs 05/20/232151 PROCAL 0.12* CBC: Recent Labs 05/19/232256 WBC 8.5 HGB 15.9 HCT 45.8 PLT 157 MCV 90.9 RDW 13.4 ABGs: No results for input(s): PHART, YTN9XUX, PO2ART, ONB1UNW, SO2ART, B7RCOYEN in the last 72 hours. Lactic Acid: Recent Labs 05/19/23225605/20/23 0240 05/20/23 0649 LACTATE 2.4* 2.6* 1.4 INR: No results for input(s): INR in the last 72 hours. Cardiac Injury Profile: Recent Labs 05/19/232256 TROPONINI <0.012 Labs in Last 3 months: Lab Results Component Value Date INR 1.0 04/08/2022 Microbiology- Urine Cx: No results found for: URINECX Blood Cx: Lab Results Component Value Date BLOODCX No growth at 24 hours 05/19/2023 BLOODCX No growth at 24 hours 05/19/2023 Sputum Cx: No results found for: RESPCULT Gram Stain: No results found for: LABGRAM PNA PCR: No results found for: HUMANMETAPNE COVID19: No results found for: COVID19 Legionella Ag: No results found for: LEGIONELLAPN Strep Ag: No results for input(s): STREPPNEUMO in the last 72 hours. Imaging- CXR portable:Results for orders placed during the hospital encounter of 05/19/23 XR chest 1 view Narrative Patient Name: KARI ALLAN : 1970 Exam Date/Time: 05/20/2023 01:58 Procedure: XR CHEST 1 VIEW Ordering Provider: LANDEROS JOSEPH Reason For Exam: DYSPNEA EXAMINATION: CHEST RADIOGRAPH (SINGLE VIEW AP OR PA) Clinical History: DYSPNEA Comparison: Radiograph 11/14/2021 RESULT: See impression Impression Lines, tubes, and devices: None. Lungs and pleura: No consolidation. No pleural effusion or pneumothorax. Cardiomediastinal silhouette: Stable normal cardiomediastinal silhouette. Other: Bony thorax appears grossly intact. Report Dictated on Electronically Signed By: Tommie Person MD Electronically Signed Date/Time: 05/20/2023 3:17 AM EST CXR (2V): No results found for this or any previous visit. CT Chest: No results found for this or any previous visit. CTA Chest: Results for orders placed during the hospital encounter of 04/08/22 CT chest angiogram w and/or wo IV contrast Narrative Patient Name: KARI ALLAN Exam Date/Time: 04/08/2022 13:48 Procedure: CT CHEST ANGIOGRAM W AND/OR WO IV CONTRAST Ordering Provider: ERIC NICHOLAS Reason For Exam: CTA chest with and without contrast History: chest pain Protocol: 1 mm images after IV contrast, 3D rendering performed by mn on a separate workstation No evidence of aortic dissection or pulmonary embolism. Diffuse groundglass infiltrates in the right lung. Consider Covid pneumonia. No pleural effusions. No lymphadenopathy. Small hiatal hernia. Impression Diffuse groundglass infiltrates in the right lung. Consider Covid pneumonia. Small hiatal hernia. Report Dictated on Electronically Signed By: Jorden Emery Electronically Signed Date/Time: 04/08/2022 1:52 PM EST Other Studies: Reviewed and as per electronic record. CxR/CT images personally reviewed by me when available; salient findings summarized in A/P. Objective: Vitals: BP 95/71 (BP Location: Right arm, Patient Position: Lying) Pulse 82 Temp 36.8 C (98.2 F) (Temporal) Resp 18 SpO2 98% Physical Exam Constitutional: General: He is not in acute distress. Appearance: He is well-developed. He is not ill-appearing. HENT: Head: Normocephalic and atraumatic. Right Ear: External ear normal. Left Ear: External ear normal. Nose: Nose normal. Mouth/Throat: Mouth: Mucous membranes are moist. Pharynx: Oropharynx is clear. No oropharyngeal exudate. Eyes: General: No scleral icterus. Right eye: No discharge. Left eye: No discharge. Extraocular Movements: Extraocular movements intact. Conjunctiva/sclera: Conjunctivae normal. Pupils: Pupils are equal, round, and reactive to light. Neck: Thyroid: No thyromegaly. Vascular: No JVD. Cardiovascular: Rate and Rhythm: Normal rate and regular rhythm. Pulses: Normal pulses. Heart sounds: Normal heart sounds. No murmur heard. Pulmonary: Effort: Pulmonary effort is normal. No respiratory distress. Breath sounds: Normal breath sounds. No stridor. No wheezing or rhonchi. Abdominal: General: There is no distension. Palpations: Abdomen is soft. There is no mass. Tenderness: There is no abdominal tenderness. There is no guarding. Musculoskeletal: General: No swelling or deformity. Normal range of motion. Cervical back: Normal range of motion and neck supple. Right lower leg: No edema. Left lower leg: No edema. Lymphadenopathy: Cervical: No cervical adenopathy. Skin: General: Skin is warm and dry. Coloration: Skin is not jaundiced. Findings: No rash. Comments: Numerous tattoos on torso Neurological: Mental Status: He is alert and oriented to person, place, and time. Cranial Nerves: No cranial nerve deficit. Sensory: No sensory deficit. [employer] Work Phone: 05-21-2023 Note Formatting of this n ote might be different from the original. Admitted from home with covid. Receiving oral decadron and iv remdesivir. ID and pulmonology are consulted. Pulse ox is 94% on room air. Discharge plan is likely return to [facility]. . [facility] 05-21-2023 Note Formatting of this n ote might be different from the original. Admitted from home with covid. Receiving oral decadron and iv remdesivir. ID and pulmonology are consulted. Pulse ox is 94% on room air. Discharge plan is likely return to [place] [place]. . [facility] 05-20-2023 Emergency department Note BEN Israel RN, RN spent 180 total minutes providing direct, [id number] critical care to the patient for: Interventions [] Administration of ACLS drugs in cardiac arrest [] Arterial Line Insertion [] Central Line Insertion [] Chest Tube Insertion [] CPR [] Defibrillation [] Intubation [] Therapeutic hypothermia [] Pericardiocentesis [] Ventilator Management [x] Other: ( if checked, please document in ED NOTE below) Medications: [] Infusions of Vasoactive medications [] adenosine [] nitroglycerin [] dopamine [] norepiniphrine [] labetalol [] sodium nitroprusside [] metoprolol [] Multiple IV medications which require constant monitoring [] amiodarone [] Ephedrine sulphate [] digoxin [] adrenaline [] dobutamine [] Hydralazine hydrochloride [] hydrochloride [] Insulin Drip Documentation of the following Teams: [] Surgical Team [] Trauma Team [] Stroke Team [] STEMI Team Documentation of the Following Conditions: [] Abdominal aneurysm (Rupture or dissection) [] Acute Myocardial Infarction [] Acute Renal Failure [] Conscious Sedation [] Central Nervous System Failure [] Cerebral Hemorrhage [] Circulatory Failure [] DKA [] Drug Overdose impairing vital function (respiratory, cardiac) [] Respiratory Failure [] Sepsis [] Shock Circulatory Failure [] Status Epilepticus - intractable seizures ED NOTE: Pt attempting to get out of bed numerous times, difficult to reorient or redirect, also nightman staff had difficulty with IV access. Jodi Cho RN 05/20/231551 [facility] 05-20-2023 Emergency department Note BEN Israel RN, RN spent 180 total minutes providing direct, [id number] critical care to the patient for: Interventions [] Administration of ACLS drugs in cardiac arrest [] Arterial Line Insertion [] Central Line Insertion [] Chest Tube Insertion [] CPR [] Defibrillation [] Intubation [] Therapeutic hypothermia [] Pericardiocentesis [] Ventilator Management [x] Other: ( if checked, please document in ED NOTE below) Medications: [] Infusions of Vasoactive medications [] adenosine [] nitroglycerin [] dopamine [] norepiniphrine [] labetalol [] sodium nitroprusside [] metoprolol [] Multiple IV medications which require constant monitoring [] amiodarone [] Ephedrine sulphate [] digoxin [] adrenaline [] dobutamine [] Hydralazine hydrochloride [] hydrochloride [] Insulin Drip Documentation of the following Teams: [] Surgical Team [] Trauma Team [] Stroke Team [] STEMI Team Documentation of the Following Conditions: [] Abdominal aneurysm (Rupture or dissection) [] Acute Myocardial Infarction [] Acute Renal Failure [] Conscious Sedation [] Central Nervous System Failure [] Cerebral Hemorrhage [] Circulatory Failure [] DKA [] Drug Overdose impairing vital function (respiratory, cardiac) [] Respiratory Failure [] Sepsis [] Shock Circulatory Failure [] Status Epilepticus - intractable seizures ED NOTE: Pt attempting to get out of bed numerous times, difficult to reorient or redirect, also nightman staff had difficulty with IV access. Jodi Cho RN 05/20/231551 Patient used call light to stated he needed to go to the bathroom. Patient voided and had bowel movement via bedpan. Cleaned and repositioned. Call light in reach Jonathan Zazueta RN 05/20/23 1528 Pt again seen at end of cot. ED staff again to room advising pt he cannot get up. Pt again insisting he has to piss. Pt was assisted to boost to top of cot and was again provided the urinal. Jodi Cho RN 05/20/23 1351 Patient passed golf ball sized soft brown stool via bedpan. Cleaned of stool, repositioned. Jonathan Zazueta RN 05/20/23 1333 Pt again yelling and scooting on cot, RN to room, again reminded pt of multiple prior discussions about needing to use the urinal. Pt obstinate insisting he will walk to bathroom then finally remained on cot. Pt was also advised that he needs to keep his mask on as he is COVID +. Jodi Cho RN 05/20/23 1300 Pt yelling in room states he is just going to go (walk) to the bathroom. Again advised pt we are not walking him. Urinal is in reach of pt. Pt again stating he will not use it but then placed urinal independently. Jodi Cho RN 05/20/23 4756 Pt was noted to be standing in the doorway of the room. RN to room, pt refusing to go back to bed. Pt very unsteady. Pt stating he wants to walk to the bathroom. Again educated pt on fall risk, he is here for falls and we are not walking him to the restroom. Calls placed to ED lift supervisor and Protective Services; Jonathan CONTRERAS and [employer] officer to room, pt confrontational and calls Jonathan CONTRERAS a mother fucker. Pt was assisted back onto cot, urinal is in reach of pt, curtain open and pt in view of nurses station. Jodi Cho RN 05/20/23 1236 Jodi Cho RN 05/20/23 1238 Pt at end of cot again, ED staff to bedside. Pt insisting he needs to get up and go to the bathroom. Advised pt he has a urinal to use and we are not ambulating him as he is here for weakness and falls. Pt reluctant to scoot back on cot stating I have to piss. Pt was boosted up on cot and a urinal was placed. VS obtained. Jodi Cho RN 05/20/23 1216 Pt was noted to be at the end of the cot. ED staff to room, pt stating he cannot scoot himself back up on the cot. Pt was boosted back onto cot, pt was advised that he needs to stay in bed and not get up, monitor leads and SPO2 monitor placed back on pt. TV on, call light in reach, pt in view of staff. Jodi Cho RN 05/20/23 1106 Jodi Cho RN 05/20/23 1112 Patient removed condom catheter and attempted to void in urinal with no success. Betsey Marcial RN 05/20/23 1001 Patient's sister, Karo, called. Update sister on patient status. Sister appreciative of update. Betsey Marcial RN 05/20/23 0854 Patient given breakfast meal and water. Patient stating he needs to urinate. Informed patient he has urinary catheter that he can void in. Betsey Marcial RN 05/20/23 0853 IV site wrapped with coban. Betsey Marcial RN 05/20/23 0803 Phoned pharmacy to manager of operations over remdesivir to ED. Betsey Marcial RN 05/20/23 0726 Pt keeps complaining of having to urinate. Tried once again to use bedside urinal with no relief. Physician stated to just keep letting pt try to urinate for now. No straight cath at this time. Lynda Savage RN 05/20/23 0654 This RN went to pt room to assist pt up to bedside to pee using a walker. Pt tried three different times to urinate with no result. It has been 8hrs since pt urinated. Lynda Savage RN 05/20/23 0612 Pt was found trying to get out of bed. This RN ran to room. Pt stated he had to pee. This RN and AG, RN helped him into a standing position to pee. Pt was very unsteady on his feet. Pt stated he can't pee in a urinal and he wants to go to bathroom. This RN told pt he cannot walk to the bathroom because he will fall. This RN gave pt options such as pee in a urinal at bedside or external condom catheter. Pt stated he wanted the condom catheter. Condom catheter placed by this RN. New gown and blankets provided. Pt back in bed comfortable. Bedrails up x2. Lynda Savage RN 05/20/23 0517 This RN to room to reapply cardiac leads and pulse ox. Pt stated he had to pee. Pt denied peeing in a urinal. This RN explained to pt he cannot walk to the bathroom because he will fall. Pt stated he didn't want to pee then. Bedrails up x2. Lynda Savage RN 05/20/23 0520 Pt could not tell me if he took his Eliquis tonight. This RN called [facility] and talked to BEN Mike. She told me he did not take his evening dose of Eliquis. Lynda Savage RN 05/20/23 0153 EMERGENCY DEPARTMENT ENCOUNTER Pt Name: Kari Allan Birthdate 1970 Date of evaluation: 05/19/2023 ED Provider: Franklin Landeros DO CHIEF COMPLAINT Chief Complaint Patient presents with Fall Shortness of Breath HISTORY OF PRESENT ILLNESS (Location/Symptom, Timing/Onset, Context/Setting, Quality, Duration, Modifying Factors, Severity) Note limiting factors. I wore appropriate PPE for the entirety of this encounter. HPI Kari Allan is a 52 y.o. male who presents to the emergency department status post fall. The patient was sent in from his extended care facility after multiple falls. The patient reports that yesterday he started to feel very weak, short of breath, and lightheaded. He reports that the symptoms progressively worsened today which caused him to fall multiple times when going from a seated to standing position. The patient tested positive for COVID-19 2 days ago. The patient denies any chest pain or abdominal pain. He denies any injuries from the fall. Nursing Notes were reviewed. Limitations to history: Outside historians: REVIEW OF SYSTEMS Review of Systems Constitutional: Positive for fatigue. Respiratory: Positive for shortness of breath. Cardiovascular: Negative for chest pain. Gastrointestinal: Negative for abdominal pain. Neurological: Positive for light-headedness. PAST MEDICAL HISTORY Past Medical History: Diagnosis Date Alcohol abuse with intoxication (HCC) Anemia Anoxic brain damage (CMS/HCC) (HCC) Anxiety Asthma Convulsion (HCC) COPD (chronic obstructive pulmonary disease) (HCC) Depression DVT (deep venous thrombosis) (HCC) Dysphagia Encephalopathy GERD (gastroesophageal reflux disease) Hepatitis Hypertension Impulse control disorder Insomnia, unspecified Need for assistance with personal care Opioid abuse (HCC) Other symbolic dysfunctions Pancreatitis Psychosis (HCC) PTSD (post-traumatic stress disorder) Solitary lung nodule SURGICAL HISTORY Past Surgical History: Procedure Laterality Date APPENDECTOMY BACK SURGERY 5 vertabrae fused CHOLECYSTECTOMY COLONOSCOPY 2014 CT CHEST ANGIOGRAM W AND/OR WO IV CONTRAST 04/08/2022 CT CHEST ANGIOGRAM W AND/OR WO IV CONTRAST 04/08/[address]22 [facility] [address] IMAGING CYST REMOVAL wrist GASTROSTOMY TUBE PLACEMENT 03/01/2017 UPPER GASTROINTESTINAL ENDOSCOPY 02/16/2017 CURRENT MEDICATIONS Previous Medications ACETAMINOPHEN (TYLENOL) 325 MG TABLET Take 2 tablets by mouth every 6 hours as needed for fever, mild pain (1-3) or moderate pain (4-6). ALBUTEROL SULFATE 108 (90 BASE) MCG/ACT AEROSOL POWDER Inhale 1 puff every 2 hours as needed. APIXABAN (ELIQUIS) 5 MG TABLET Take 5 mg by mouth in the morning and 5 mg before bedtime. BACLOFEN (LIORESAL) 10 MG TABLET Take 10 mg by mouth 3 times daily. BISACODYL (DULCOLAX) 10 MG SUPPOSITORY Insert 10 mg into the rectum Daily as needed for constipation. BISACODYL (DULCOLAX) 5 MG EC TABLET Take 5 mg by mouth Daily as needed. DIVALPROEX SPRINKLE (DEPAKOTE SPRINKLE) [address] CAPSULE Take 500 mg by mouth 3 times daily. ESCITALOPRAM (LEXAPRO) 10 MG TABLET Take 1.5 tablets by mouth daily. FOLIC ACID (FOLVITE) 1 MG TABLET daily. GUAIFENESIN (HUMIBID 3) 400 MG TABLET Take 400 mg by mouth every 8 hours as needed for congestion. IPRATROPIUM-ALBUTEROL (DUO-NEB) 0.5-2.5 MG/3 ML NEBULIZER SOLUTION Inhale 3 mL every 6 hours as needed. LEVETIRACETAM (KEPPRA) 750 MG TABLET Take 1 tablet by mouth in the morning and 1 tablet before bedtime. MAGNESIUM HYDROXIDE (MILK OF MAGNESIA) 400 MG/5ML SUSPENSION Take 30 mL by mouth Daily as needed. MELATONIN 3 MG TABLET 3 mg Nightly as needed. MENTHOL, TOPICAL ANALGESIC, (BIOFREEZE ROLL-ON) 4 % GEL Apply topically every 8 hours as needed. NALTREXONE (DEPADE) 50 MG TABLET Take 50 mg by mouth in the morning. PANTOPRAZOLE (PROTONIX) 40 MG EC TABLET 40 mg 2 times daily. POLYETHYLENE GLYCOL, PEG, 3350 (GLYCOLAX) 17 GM/SCOOP POWDER Take 17 g by mouth daily. PYRIDOXINE (VITAMIN B-6) 25 MG TABLET 25 mg daily. QUETIAPINE (SEROQUEL) 200 MG TABLET 200 mg 2 times daily. THIAMINE (VITAMIN B-1) 100 MG TABLET 100 mg daily. THROAT LOZENGES (COUGH DROPS MENTHOL) LOZENGE Dissolve 1 lozenge in the mouth Once as needed. ALLERGIES Haloperidol and Paregoric FAMILY HISTORY Family History Problem Relation Name Age of Onset Diabetes Mother Diabetes Brother SOCIAL HISTORY Social History Socioeconomic History Marital status: Single Tobacco Use Smoking status: Some Days Packs/day: 2.00 Years: 30.00 Additional pack years: 0.00 Total pack years: 60.00 Types: Cigarettes Smokeless tobacco: Never Vaping Use Vaping Use: Never used Substance and Sexual Activity Alcohol use: Yes Drug use: Not Currently SCREENINGS PHYSICAL EXAM ED Triage Vitals [05/19/23 2220] Temp Heart Rate Resp BP 36.5 C (97.7 F) (!) 127 16 (!) 140/84 SpO2 Temp Source Heart Rate Source Patient Position 93 % Oral Monitor Lying BP Location FiO2 (%) Right arm -- Physical Exam Constitutional: General: He is not in acute distress. Appearance: He is ill-appearing. HENT: Head: Normocephalic. Eyes: Conjunctiva/sclera: Conjunctivae normal. Cardiovascular: Rate and Rhythm: Regular rhythm. Tachycardia present. Pulmonary: Effort: Pulmonary effort is normal. Tachypnea present. Abdominal: General: Abdomen is flat. Tenderness: There is no abdominal tenderness. Musculoskeletal: General: No deformity. Skin: General: Skin is warm and dry. Psychiatric: Mood and Affect: Mood normal. DIAGNOSTIC RESULTS RADIOLOGY (Per Emergency Physician): Interpretation per the Radiologist below, if available at the time of this note: CT head wo IV contrast Final Result No CT evidence of an acute intracranial abnormality. Mild generalized parenchymal volume loss. Nonspecific mucosal thickening of the paranasal sinuses as discussed. Report Dictated on Electronically Signed By: Tommie Person MD Electronically Signed Date/Time: 05/20/2023 12:58 AM EST CTA chest angiogram w and/or wo IV contrast (Results Pending) XR chest 1 view (Results Pending) LABS: Labs Reviewed SARS-COV-2, FLU A/B, AND RSV COMBO - Abnormal Result Value SARS-CoV-2 Detected (*) Respiratory Syncytial Virus Not Detected Influenza A Not Detected Influenza B Not Detected Narrative: Methodology: real-time, RT-PCR The SARS-CoV-2, Flu A/B, and RSV Combo assay is intended for in vitro diagnostic use under the FDA Emergency Use Authorization (EUA). This test has not been FDA cleared or approved. In compliance with this authorization, please visit www.fda.gov/media/806132/download or www.fda.gov/media/917287/download to access the applicable information sheets. BASIC METABOLIC PANEL - Abnormal SODIUM 134 (*) POTASSIUM 4.8 CHLORIDE 99 CARBON DIOXIDE 25 UREA NITROGEN 14 CREATININE 1.39 (*) GLUCOSE 118 (*) CALCIUM 8.9 ANION GAP 11 eGFR 60.2 HEPATIC FUNCTION PANEL - Abnormal BILIRUBIN, TOTAL 1.2 BILIRUBIN, DIRECT 0.0 ALKALINE PHOSPHATASE 86 AST (SGOT) 92 (*) ALT 51 (*) ALBUMIN 4.4 TOTAL PROTEIN 8.0 LACTIC ACID WITH REFLEX - Abnormal LACTIC ACID 2.4 (*) NT PRO BNP - Normal NT PRO BNP 43 TROPONIN, WITH SERIAL REFLEX - Normal TROPONIN I <0.012 Narrative: Patients with high levels of Biotin oral intake (ie >5 mg/day) may have falsely decreased Troponin levels. CBC (HEMOGRAM) - Normal Auto WBC 8.5 RBC 5.04 Hemoglobin 15.9 Hematocrit 45.8 MCV 90.9 MCH 31.5 MCHC 34.7 RDW 13.4 Platelets 157 MPV 9.0 BLOOD CULTURE BLOOD CULTURE COMPLETE URINALYSIS WITH REFLEX TO CULTURE Narrative: The following orders were created for panel order Urinalysis complete with reflex to Culture. Procedure Abnormality Status --------- ------ Complete Urinalysis[[id number]] Please view results for these tests on the individual orders. COMPLETE URINALYSIS LACTIC ACID WITH REFLEX All other labs were within normal range or not returned as of this dictation. EMERGENCY DEPARTMENT COURSE and DIFFERENTIAL DIAGNOSIS/MDM: Vitals: Vitals: 05/19/23 2229 05/19/23 2311 05/19/23 2355 05/20/23 0124 BP: (!) 140/84 (!) 147/122 115/88 BP Location: Right arm Patient Position: Lying Pulse: (!) 129 (!) 119 106 Resp: 17 16 18 Temp: TempSrc: SpO2: 91% 95% 100% 95% Medications apixaban (Eliquis) tablet 5 mg (5 mg Oral Given 05/20/23 0209) ipratropium-albuterol (Duo-Neb) 0.5-2.5 mg/3 mL nebulizer solution 3 mL (has no administration in time range) sodium chloride 0.9 % bolus 1,000 mL (0 mL IntraVENous Stopped 05/19/232350) MDM The patient presented with chief complaint of lightheadedness, shortness of breath, generalized weakness. The patient has been experiencing symptoms over the past 2 days and they have been progressively worsening. The patient had multiple falls today secondary to his symptoms. He also recently tested positive for COVID-19 2 days ago. See history and physical exam above. The patient is significantly tachycardic and borderline hypoxic. Differential diagnosis includes but is not limited to COVID-19, pneumonia, pulmonary embolus, ACS, anemia, electrolyte abnormality, dehydration. The patient was given 1 L normal saline bolus. To aid in management, I performed an independent interpretation of all laboratory tests, EKG, imaging, and other diagnostics ordered. Twelve-lead EKG reveals sinus tachycardia with rate of 120. No evidence of acute ischemia. There were multiple attempts to gain IV access through his bilateral upper extremities that were unsuccessful. The CT angiography study of the chest was unable to be obtained. As for pulmonary embolus, the patient is currently on anticoagulation. His troponin and BNP are negative. If the patient has a pulmonary embolus it is not massive, or submassive, and he is currently on anticoagulation. He will be given his dose of Eliquis 5 mg p.o., and the patient may have a VQ scan as an inpatient if clinical concern for PE persists. Chest x-ray reveals no focal infiltrate as interpreted by me, see radiologist report for details. Following 1 L normal saline bolus the patient has improvement of his heart rate. He is currently resting comfortably on 2 L of oxygen via nasal cannula. Blood counts, electrolytes, kidney function, and hepatic function are unremarkable. Initial lactic acid is 2.4, likely secondary to hypoxia and dehydration. Given that the patient has multiple falls, remains tachycardic, and hypoxic, he will be admitted for further monitoring and evaluation. I discussed with admitting physician, Dr. Alcantara, who was agreeable. Patient's care was impacted by Hypertension and COPD. I Franklin Landeros DO am the residential real estate assistant of record. PROCEDURES: Unless otherwise noted below, none Procedures FINAL IMPRESSION 1. COVID 2. Hypoxia DISPOSITION Admit 05/19/2023 11:50:36 PM PATIENT REFERRED TO: No follow-up provider specified. DISCHARGE MEDICATIONS: New Prescriptions No medications on file (Comment: Please note this report has been produced using speech recognition software and may contain errors related to that system including errors in grammar, punctuation, and spelling, as well as words and phrases that may be inappropriate. If there are any questions or concerns please feel free to contact the dictating provider for clarification.) Franklin Landeros DO (electronically signed) Emergency Medicine Provider Franklin Landeros DO 05/20/23 0255 Kari Allan, age 52, came to ED7 by ginny from [facility] assisted living for a chief complaint of fall. Squad stated he has a hx of anoxic brain injury. Pt stated he has Covid and is feeling weaker than normal. Pt has fallen 3 times today. Pt stated he did not hit his head but he doesn't remember the falls. Pt is on blood thinners. Pt stated he also feels SOB since last night. Pt stated he tested positive for Covid 2 days ago. Squad reported a glucose of 132 in ambulance. Vitals obtained. ECG completed. Call light within reach. documented in this encounter [facility] 05-20-2023 Emergency department Note Patient used call light to stated he needed to go to the bathroom. Patient voided and had bowel movement via bedpan. Cleaned and repositioned. Call light in reach Jonathan Zazueta RN 05/20/23 1528 [facility] 05-20-2023 Emergency department Note Pt again seen at end of cot. ED staff again to room advising pt he cannot get up. Pt again insisting he has to piss. Pt was assisted to boost to top of cot and was again provided the urinal. Jodi Cho RN 05/20/23 1351 [facility] 05-20-2023 Emergency department Note Patient passed golf ball sized soft brown stool via bedpan. Cleaned of stool, repositioned. Jonathan Zazueta RN 05/20/23 1333 [facility] 05-20-2023 Emergency department Note Pt again yelling and scooting on cot, RN to room, again reminded pt of multiple prior discussions about needing to use the urinal. Pt obstinate insisting he will walk to bathroom then finally remained on cot. Pt was also advised that he needs to keep his mask on as he is COVID +. Jodi Cho RN 05/20/23 1305 [facility] 05-20-2023 Emergency department Note Pt yelling in room states he is just going to go (walk) to the bathroom. Again advised pt we are not walking him. Urinal is in reach of pt. Pt again stating he will not use it but then placed urinal independently. Jodi Cho RN 05/20/23 1302 [facility] 05-20-2023 Emergency department Note Pt was noted to be standing in the doorway of the room. RN to room, pt refusing to go back to bed. Pt very unsteady. Pt stating he wants to walk to the bathroom. Again educated pt on fall risk, he is here for falls and we are not walking him to the restroom. Calls placed to ED lift supervisor and Protective Services; Jonathan CONTRERAS and [facility] officer to room, pt confrontational and calls Jonathan CONTRERAS a mother fucker. Pt was assisted back onto cot, urinal is in reach of pt, curtain open and pt in view of nurses station. Jodi Cho RN 05/20/23 1236 Jodi Cho RN 05/20/23 1238 [facility] 05-20-2023 Emergency department Note Pt at end of cot again, ED staff to bedside. Pt insisting he needs to get up and go to the bathroom. Advised pt he has a urinal to use and we are not ambulating him as he is here for weakness and falls. Pt reluctant to scoot back on cot stating I have to piss. Pt was boosted up on cot and a urinal was placed. VS obtained. Jodi Cho RN 05/20/23 1216 [facility] 05-20-2023 Emergency department Note Pt was noted to be at the end of the cot. ED staff to room, pt stating he cannot scoot himself back up on the cot. Pt was boosted back onto cot, pt was advised that he needs to stay in bed and not get up, monitor leads and SPO2 monitor placed back on pt. TV on, call light in reach, pt in view of staff. Jodi Cho RN 05/20/23 1106 Jodi Cho RN 05/20/23 1112 [facility] 05-20-2023 History and physical note Department of Family Medicine Attending History and Physical CHIEF COMPLAINT: fall Reason for Admission: same generalized weakness History Obtained From: patient History of Present Illness Kari Allan is a 52 y.o. male who presents to the emergency department status post fall. The patient was sent in from his extended care facility after multiple falls. The patient reports that yesterday he started to feel very weak, short of breath, and lightheaded. He reports that the symptoms progressively worsened today which caused him to fall multiple times when going from a seated to standing position. The patient tested positive for COVID-19 2 days ago. The patient denies any chest pain or abdominal pain. He denies any injuries from the fall. He is being admitted for covid and treatment Past Medical History: Past Medical History: Diagnosis Date Alcohol abuse with intoxication (HCC) Anemia Anoxic brain damage (CMS/HCC) (HCC) Anxiety Asthma Convulsion (HCC) COPD (chronic obstructive pulmonary disease) (HCC) Depression DVT (deep venous thrombosis) (HCC) Dysphagia Encephalopathy GERD (gastroesophageal reflux disease) Hepatitis Hypertension Impulse control disorder Insomnia, unspecified Need for assistance with personal care Opioid abuse (HCC) Other symbolic dysfunctions Pancreatitis Psychosis (HCC) PTSD (post-traumatic stress disorder) Solitary lung nodule Past Surgical History: Past Surgical History: Procedure Laterality Date APPENDECTOMY BACK SURGERY 5 vertabrae fused CHOLECYSTECTOMY COLONOSCOPY 2014 CT CHEST ANGIOGRAM W AND/OR WO IV CONTRAST 04/08/2022 CT CHEST ANGIOGRAM W AND/OR WO IV CONTRAST 04/08/[address]22 [facility] [address] IMAGING CYST REMOVAL wrist GASTROSTOMY TUBE PLACEMENT 03/01/2017 UPPER GASTROINTESTINAL ENDOSCOPY 02/16/2017 Medications Prior to Admission: (Not in a hospital admission) Allergies: Haloperidol and Paregoric Social History: Social History Socioeconomic History Marital status: Single Tobacco Use Smoking status: Some Days Packs/day: 2.00 Years: 30.00 Additional pack years: 0.00 Total pack years: 60.00 Types: Cigarettes Smokeless tobacco: Never Vaping Use Vaping Use: Never used Substance and Sexual Activity Alcohol use: Yes Drug use: Not Currently Family History: Family History Problem Relation Name Age of Onset Diabetes Mother Diabetes Brother REVIEW OF SYSTEMS: Review of Systems 10 point ros negative except for HPI Objective Vitals: BP 129/78 (BP Location: Right arm, Patient Position: Sitting) Pulse (!) 113 Temp 36.5 C (97.7 F) (Oral) Resp 20 SpO2 91% Physical Exam Pt is alert and oriented x 3 Heent wnl Heart regular Lungs diminished throughout Abd benign Ext no edema Assessment/Plan Patient Active Problem List Diagnosis GERD (gastroesophageal reflux disease) Alcohol-induced acute pancreatitis without infection or necrosis Hypertension Obstructive chronic bronchitis without exacerbation Pain of lower extremity Hip pain Deep vein thrombosis (HCC) Back pain Renal cyst C. difficile diarrhea Acute respiratory failure with hypoxia (HCC) Blood poisoning Acute alcoholic gastritis Sepsis (HCC) Seizure (HCC) Febrile illness Tobacco abuse Acute respiratory failure (HCC) Encephalopathy Alcohol abuse Drug overdose Chronic pancreatitis (CMS/HCC) (HCC) Encephalopathy acute Chronic bronchitis (HCC) MARICRUZ (obstructive sleep apnea) Class 1 obesity due to excess calories with serious comorbidity and body mass index (BMI) of 31.0 to 31.9 in adult Preoperative respiratory examination Esophageal stricture COVID Generalized weakness Covid 19 Anoxic brain injury PTSD Copd GERD HTN Plan Admit to med floor Consult ID Iv remdesivir and decadron Pt/ot eval ASHLIE ALCANTARA DO 05/20/23 10:31 AM [facility] 05-20-2023 History and physical note Department of Family Medicine Attending History and Physical CHIEF COMPLAINT: fall Reason for Admission: same generalized weakness History Obtained From: patient History of Present Illness Kari Allan is a 52 y.o. male who presents to the emergency department status post fall. The patient was sent in from his extended care facility after multiple falls. The patient reports that yesterday he started to feel very weak, short of breath, and lightheaded. He reports that the symptoms progressively worsened today which caused him to fall multiple times when going from a seated to standing position. The patient tested positive for COVID-19 2 days ago. The patient denies any chest pain or abdominal pain. He denies any injuries from the fall. He is being admitted for covid and treatment Past Medical History: Past Medical History: Diagnosis Date Alcohol abuse with intoxication (HCC) Anemia Anoxic brain damage (CMS/HCC) (HCC) Anxiety Asthma Convulsion (HCC) COPD (chronic obstructive pulmonary disease) (HCC) Depression DVT (deep venous thrombosis) (HCC) Dysphagia Encephalopathy GERD (gastroesophageal reflux disease) Hepatitis Hypertension Impulse control disorder Insomnia, unspecified Need for assistance with personal care Opioid abuse (HCC) Other symbolic dysfunctions Pancreatitis Psychosis (HCC) PTSD (post-traumatic stress disorder) Solitary lung nodule Past Surgical History: Past Surgical History: Procedure Laterality Date APPENDECTOMY BACK SURGERY 5 vertabrae fused CHOLECYSTECTOMY COLONOSCOPY 2014 CT CHEST ANGIOGRAM W AND/OR WO IV CONTRAST 04/08/2022 CT CHEST ANGIOGRAM W AND/OR WO IV CONTRAST 04/08/[address]22 [facility] [address] IMAGING CYST REMOVAL wrist GASTROSTOMY TUBE PLACEMENT 03/01/2017 UPPER GASTROINTESTINAL ENDOSCOPY 02/16/2017 Medications Prior to Admission: (Not in a hospital admission) Allergies: Haloperidol and Paregoric Social History: Social History Socioeconomic History Marital status: Single Tobacco Use Smoking status: Some Days Packs/day: 2.00 Years: 30.00 Additional pack years: 0.00 Total pack years: 60.00 Types: Cigarettes Smokeless tobacco: Never Vaping Use Vaping Use: Never used Substance and Sexual Activity Alcohol use: Yes Drug use: Not Currently Family History: Family History Problem Relation Name Age of Onset Diabetes Mother Diabetes Brother REVIEW OF SYSTEMS: Review of Systems 10 point ros negative except for HPI Objective Vitals: BP 129/78 (BP Location: Right arm, Patient Position: Sitting) Pulse (!) 113 Temp 36.5 C (97.7 F) (Oral) Resp 20 SpO2 91% Physical Exam Pt is alert and oriented x 3 Heent wnl Heart regular Lungs diminished throughout Abd benign Ext no edema Assessment/Plan Patient Active Problem List Diagnosis GERD (gastroesophageal reflux disease) Alcohol-induced acute pancreatitis without infection or necrosis Hypertension Obstructive chronic bronchitis without exacerbation Pain of lower extremity Hip pain Deep vein thrombosis (HCC) Back pain Renal cyst C. difficile diarrhea Acute respiratory failure with hypoxia (HCC) Blood poisoning Acute alcoholic gastritis Sepsis (HCC) Seizure (HCC) Febrile illness Tobacco abuse Acute respiratory failure (HCC) Encephalopathy Alcohol abuse Drug overdose Chronic pancreatitis (CMS/HCC) (HCC) Encephalopathy acute Chronic bronchitis (HCC) MARICRUZ (obstructive sleep apnea) Class 1 obesity due to excess calories with serious comorbidity and body mass index (BMI) of 31.0 to 31.9 in adult Preoperative respiratory examination Esophageal stricture COVID Generalized weakness Covid 19 Anoxic brain injury PTSD Copd GERD HTN Plan Admit to med floor Consult ID Iv remdesivir and decadron Pt/ot eval ASHLIE ALCANTARA DO 05/20/23 10:31 AM documented in this encounter [facility] 05-20-2023 Emergency department Note Patient removed condom catheter and attempted to void in urinal with no success. Betsey Marcial RN 05/20/23 1001 [facility] 05-20-2023 Emergency department Note Patient's sister, Karo, called. Update sister on patient status. Sister appreciative of update. Betsey Marcial RN 05/20/23 0854 [facility] 05-20-2023 Emergency department Note Patient given breakfast meal and water. Patient stating he needs to urinate. Informed patient he has urinary catheter that he can void in. Betsey Marcial RN 05/20/23 0853 [facility] 05-20-2023 Emergency department Note IV site wrapped with coban. Betsey Marcial RN 05/20/23 0803 [facility] 05-20-2023 Emergency department Note Phoned pharmacy to manager of operations over remdesivir to ED. Betsey Marcial RN 05/20/23 0726 [facility] 05-20-2023 Emergency department Note Pt keeps complaining of having to urinate. Tried once again to use bedside urinal with no relief. Physician stated to just keep letting pt try to urinate for now. No straight cath at this time. Lynda Savage RN 05/20/23 0654 [facility] 05-20-2023 Emergency department Note This RN went to pt room to assist pt up to bedside to pee using a walker. Pt tried three different times to urinate with no result. It has been 8hrs since pt urinated. Lynda Savage RN 05/20/23 0612 [facility] 05-20-2023 Emergency department Note Pt was found trying to get out of bed. This RN ran to room. Pt stated he had to pee. This RN and AG, RN helped him into a standing position to pee. Pt was very unsteady on his feet. Pt stated he can't pee in a urinal and he wants to go to bathroom. This RN told pt he cannot walk to the bathroom because he will fall. This RN gave pt options such as pee in a urinal at bedside or external condom catheter. Pt stated he wanted the condom catheter. Condom catheter placed by this RN. New gown and blankets provided. Pt back in bed comfortable. Bedrails up x2. Lynda Savage RN 05/20/23 0517 [facility] 05-20-2023 Emergency department Note This RN to room to reapply cardiac leads and pulse ox. Pt stated he had to pee. Pt denied peeing in a urinal. This RN explained to pt he cannot walk to the bathroom because he will fall. Pt stated he didn't want to pee then. Bedrails up x2. Lynda Savage RN 05/20/23 0520 [facility] 05-20-2023 Emergency department Note Pt could not tell me if he took his Eliquis tonight. This RN called [facility] and talked to BEN Mike. She told me he did not take his evening dose of Eliquis. Lynda Savage RN 05/20/23 0153 [facility] 05-19-2023 Emergency department Triage note Kari Allan, age 52, came to ED7 by ginny from [facility] assisted living for a chief complaint of fall. Squad stated he has a hx of anoxic brain injury. Pt stated he has Covid and is feeling weaker than normal. Pt has fallen 3 times today. Pt stated he did not hit his head but he doesn't remember the falls. Pt is on blood thinners. Pt stated he also feels SOB since last night. Pt stated he tested positive for Covid 2 days ago. Ginny reported a glucose of 132 in ambulance. Vitals obtained. ECG completed. Call light within reach. [facility] 05-19-2023 Physician Emergency department Note EMERGENCY DEPARTMENT ENCOUNTER Pt Name: Kari Allan Birthdate 1970 Date of evaluation: 05/19/2023 ED Provider: Franklin Landeros DO CHIEF COMPLAINT Chief Complaint Patient presents with Fall Shortness of Breath HISTORY OF PRESENT ILLNESS (Location/Symptom, Timing/Onset, Context/Setting, Quality, Duration, Modifying Factors, Severity) Note limiting factors. I wore appropriate PPE for the entirety of this encounter. HPI Kari Allan is a 52 y.o. male who presents to the emergency department status post fall. The patient was sent in from his extended care facility after multiple falls. The patient reports that yesterday he started to feel very weak, short of breath, and lightheaded. He reports that the symptoms progressively worsened today which caused him to fall multiple times when going from a seated to standing position. The patient tested positive for COVID-19 2 days ago. The patient denies any chest pain or abdominal pain. He denies any injuries from the fall. Nursing Notes were reviewed. Limitations to history: Outside historians: REVIEW OF SYSTEMS Review of Systems Constitutional: Positive for fatigue. Respiratory: Positive for shortness of breath. Cardiovascular: Negative for chest pain. Gastrointestinal: Negative for abdominal pain. Neurological: Positive for light-headedness. PAST MEDICAL HISTORY Past Medical History: Diagnosis Date Alcohol abuse with intoxication (HCC) Anemia Anoxic brain damage (CMS/HCC) (HCC) Anxiety Asthma Convulsion (HCC) COPD (chronic obstructive pulmonary disease) (HCC) Depression DVT (deep venous thrombosis) (HCC) Dysphagia Encephalopathy GERD (gastroesophageal reflux disease) Hepatitis Hypertension Impulse control disorder Insomnia, unspecified Need for assistance with personal care Opioid abuse (HCC) Other symbolic dysfunctions Pancreatitis Psychosis (HCC) PTSD (post-traumatic stress disorder) Solitary lung nodule SURGICAL HISTORY Past Surgical History: Procedure Laterality Date APPENDECTOMY BACK SURGERY 5 vertabrae fused CHOLECYSTECTOMY COLONOSCOPY 2014 CT CHEST ANGIOGRAM W AND/OR WO IV CONTRAST 04/08/2022 CT CHEST ANGIOGRAM W AND/OR WO IV CONTRAST 04/08/[address]22 [facility] [address] IMAGING CYST REMOVAL wrist GASTROSTOMY TUBE PLACEMENT 03/01/2017 UPPER GASTROINTESTINAL ENDOSCOPY 02/16/2017 CURRENT MEDICATIONS Previous Medications ACETAMINOPHEN (TYLENOL) 325 MG TABLET Take 2 tablets by mouth every 6 hours as needed for fever, mild pain (1-3) or moderate pain (4-6). ALBUTEROL SULFATE 108 (90 BASE) MCG/ACT AEROSOL POWDER Inhale 1 puff every 2 hours as needed. APIXABAN (ELIQUIS) 5 MG TABLET Take 5 mg by mouth in the morning and 5 mg before bedtime. BACLOFEN (LIORESAL) 10 MG TABLET Take 10 mg by mouth 3 times daily. BISACODYL (DULCOLAX) 10 MG SUPPOSITORY Insert 10 mg into the rectum Daily as needed for constipation. BISACODYL (DULCOLAX) 5 MG EC TABLET Take 5 mg by mouth Daily as needed. DIVALPROEX SPRINKLE (DEPAKOTE SPRINKLE) [address] CAPSULE Take 500 mg by mouth 3 times daily. ESCITALOPRAM (LEXAPRO) 10 MG TABLET Take 1.5 tablets by mouth daily. FOLIC ACID (FOLVITE) 1 MG TABLET daily. GUAIFENESIN (HUMIBID 3) 400 MG TABLET Take 400 mg by mouth every 8 hours as needed for congestion. IPRATROPIUM-ALBUTEROL (DUO-NEB) 0.5-2.5 MG/3 ML NEBULIZER SOLUTION Inhale 3 mL every 6 hours as needed. LEVETIRACETAM (KEPPRA) 750 MG TABLET Take 1 tablet by mouth in the morning and 1 tablet before bedtime. MAGNESIUM HYDROXIDE (MILK OF MAGNESIA) 400 MG/5ML SUSPENSION Take 30 mL by mouth Daily as needed. MELATONIN 3 MG TABLET 3 mg Nightly as needed. MENTHOL, TOPICAL ANALGESIC, (BIOFREEZE ROLL-ON) 4 % GEL Apply topically every 8 hours as needed. NALTREXONE (DEPADE) 50 MG TABLET Take 50 mg by mouth in the morning. PANTOPRAZOLE (PROTONIX) 40 MG EC TABLET 40 mg 2 times daily. POLYETHYLENE GLYCOL, PEG, 3350 (GLYCOLAX) 17 GM/SCOOP POWDER Take 17 g by mouth daily. PYRIDOXINE (VITAMIN B-6) 25 MG TABLET 25 mg daily. QUETIAPINE (SEROQUEL) 200 MG TABLET 200 mg 2 times daily. THIAMINE (VITAMIN B-1) 100 MG TABLET 100 mg daily. THROAT LOZENGES (COUGH DROPS MENTHOL) LOZENGE Dissolve 1 lozenge in the mouth Once as needed. ALLERGIES Haloperidol and Paregoric FAMILY HISTORY Family History Problem Relation Name Age of Onset Diabetes Mother Diabetes Brother SOCIAL HISTORY Social History Socioeconomic History Marital status: Single Tobacco Use Smoking status: Some Days Packs/day: 2.00 Years: 30.00 Additional pack years: 0.00 Total pack years: 60.00 Types: Cigarettes Smokeless tobacco: Never Vaping Use Vaping Use: Never used Substance and Sexual Activity Alcohol use: Yes Drug use: Not Currently SCREENINGS PHYSICAL EXAM ED Triage Vitals [05/19/23 2220] Temp Heart Rate Resp BP 36.5 C (97.7 F) (!) 127 16 (!) 140/84 SpO2 Temp Source Heart Rate Source Patient Position 93 % Oral Monitor Lying BP Location FiO2 (%) Right arm -- Physical Exam Constitutional: General: He is not in acute distress. Appearance: He is ill-appearing. HENT: Head: Normocephalic. Eyes: Conjunctiva/sclera: Conjunctivae normal. Cardiovascular: Rate and Rhythm: Regular rhythm. Tachycardia present. Pulmonary: Effort: Pulmonary effort is normal. Tachypnea present. Abdominal: General: Abdomen is flat. Tenderness: There is no abdominal tenderness. Musculoskeletal: General: No deformity. Skin: General: Skin is warm and dry. Psychiatric: Mood and Affect: Mood normal. DIAGNOSTIC RESULTS RADIOLOGY (Per Emergency Physician): Interpretation per the Radiologist below, if available at the time of this note: CT head wo IV contrast Final Result No CT evidence of an acute intracranial abnormality. Mild generalized parenchymal volume loss. Nonspecific mucosal thickening of the paranasal sinuses as discussed. Report Dictated on Electronically Signed By: Tommie Person MD Electronically Signed Date/Time: 05/20/2023 12:58 AM EST CTA chest angiogram w and/or wo IV contrast (Results Pending) XR chest 1 view (Results Pending) LABS: Labs Reviewed SARS-COV-2, FLU A/B, AND RSV COMBO - Abnormal Result Value SARS-CoV-2 Detected (*) Respiratory Syncytial Virus Not Detected Influenza A Not Detected Influenza B Not Detected Narrative: Methodology: real-time, RT-PCR The SARS-CoV-2, Flu A/B, and RSV Combo assay is intended for in vitro diagnostic use under the FDA Emergency Use Authorization (EUA). This test has not been FDA cleared or approved. In compliance with this authorization, please visit www.fda.gov/media/371148/download or www.fda.gov/media/397811/download to access the applicable information sheets. BASIC METABOLIC PANEL - Abnormal SODIUM 134 (*) POTASSIUM 4.8 CHLORIDE 99 CARBON DIOXIDE 25 UREA NITROGEN 14 CREATININE 1.39 (*) GLUCOSE 118 (*) CALCIUM 8.9 ANION GAP 11 eGFR 60.2 HEPATIC FUNCTION PANEL - Abnormal BILIRUBIN, TOTAL 1.2 BILIRUBIN, DIRECT 0.0 ALKALINE PHOSPHATASE 86 AST (SGOT) 92 (*) ALT 51 (*) ALBUMIN 4.4 TOTAL PROTEIN 8.0 LACTIC ACID WITH REFLEX - Abnormal LACTIC ACID 2.4 (*) NT PRO BNP - Normal NT PRO BNP 43 TROPONIN, WITH SERIAL REFLEX - Normal TROPONIN I <0.012 Narrative: Patients with high levels of Biotin oral intake (ie >5 mg/day) may have falsely decreased Troponin levels. CBC (HEMOGRAM) - Normal Auto WBC 8.5 RBC 5.04 Hemoglobin 15.9 Hematocrit 45.8 MCV 90.9 MCH 31.5 MCHC 34.7 RDW 13.4 Platelets 157 MPV 9.0 BLOOD CULTURE BLOOD CULTURE COMPLETE URINALYSIS WITH REFLEX TO CULTURE Narrative: The following orders were created for panel order Urinalysis complete with reflex to Culture. Procedure Abnormality Status --------- ------ Complete Urinalysis[[id number]] Please view results for these tests on the individual orders. COMPLETE URINALYSIS LACTIC ACID WITH REFLEX All other labs were within normal range or not returned as of this dictation. EMERGENCY DEPARTMENT COURSE and DIFFERENTIAL DIAGNOSIS/MDM: Vitals: Vitals: 05/19/23 2229 05/19/23 2311 05/19/23 2355 05/20/23 0124 BP: (!) 140/84 (!) 147/122 115/88 BP Location: Right arm Patient Position: Lying Pulse: (!) 129 (!) 119 106 Resp: 17 16 18 Temp: TempSrc: SpO2: 91% 95% 100% 95% Medications apixaban (Eliquis) tablet 5 mg (5 mg Oral Given 05/20/23 0209) ipratropium-albuterol (Duo-Neb) 0.5-2.5 mg/3 mL nebulizer solution 3 mL (has no administration in time range) sodium chloride 0.9 % bolus 1,000 mL (0 mL IntraVENous Stopped 05/19/23 2351) MDM The patient presented with chief complaint of lightheadedness, shortness of breath, generalized weakness. The patient has been experiencing symptoms over the past 2 days and they have been progressively worsening. The patient had multiple falls today secondary to his symptoms. He also recently tested positive for COVID-19 2 days ago. See history and physical exam above. The patient is significantly tachycardic and borderline hypoxic. Differential diagnosis includes but is not limited to COVID-19, pneumonia, pulmonary embolus, ACS, anemia, electrolyte abnormality, dehydration. The patient was given 1 L normal saline bolus. To aid in management, I performed an independent interpretation of all laboratory tests, EKG, imaging, and other diagnostics ordered. Twelve-lead EKG reveals sinus tachycardia with rate of 120. No evidence of acute ischemia. There were multiple attempts to gain IV access through his bilateral upper extremities that were unsuccessful. The CT angiography study of the chest was unable to be obtained. As for pulmonary embolus, the patient is currently on anticoagulation. His troponin and BNP are negative. If the patient has a pulmonary embolus it is not massive, or submassive, and he is currently on anticoagulation. He will be given his dose of Eliquis 5 mg p.o., and the patient may have a VQ scan as an inpatient if clinical concern for PE persists. Chest x-ray reveals no focal infiltrate as interpreted by me, see radiologist report for details. Following 1 L normal saline bolus the patient has improvement of his heart rate. He is currently resting comfortably on 2 L of oxygen via nasal cannula. Blood counts, electrolytes, kidney function, and hepatic function are unremarkable. Initial lactic acid is 2.4, likely secondary to hypoxia and dehydration. Given that the patient has multiple falls, remains tachycardic, and hypoxic, he will be admitted for further monitoring and evaluation. I discussed with admitting physician, Dr. Alcantara, who was agreeable. Patient's care was impacted by Hypertension and COPD. I Franklin Landeros DO am the residential real estate assistant of record. PROCEDURES: Unless otherwise noted below, none Procedures FINAL IMPRESSION 1. COVID 2. Hypoxia DISPOSITION Admit 05/19/2023 11:50:36 PM PATIENT REFERRED TO: No follow-up provider specified. DISCHARGE MEDICATIONS: New Prescriptions No medications on file (Comment: Please note this report has been produced using speech recognition software and may contain errors related to that system including errors in grammar, punctuation, and spelling, as well as words and phrases that may be inappropriate. If there are any questions or concerns please feel free to contact the dictating provider for clarification.) Franklin Landeros DO (electronically signed) Emergency Medicine Provider Franklin Landeros DO 05/20/23 0255 [facility] 04-27-2023 History of Present illness Narrative [facility] Cardiology Note DATE of SERVICE:04/27/23 TIME of SERVICE: 10:35 AM Chief Complaint: Chief Complaint Patient presents with Establish Care Cardiac Clearance History of PresentIllness: Kari Allan is a 52 y.o. male with medical history mentioned below who presents to clinic today to establish care with cardiology. The patient denies any personal history of cardiovascular events or myocardial infarction. He denies any prior cardiac interventions. He denies any personal history of stroke. He is also accompanied by his brother who helps provide some of the history as well. The patient and his brother have been living at a nursing facility. He has had extensive alcohol use history. Currently he is still a smoker. He denies any personal history of diabetes but does have elevated blood pressure. He denies any personal history of dyslipidemia. He denies any family history significant for coronary artery disease. The patient has had frequent falls at the nursing facility so he has been spending most of his time in a wheelchair now. He is not very active at baseline. He is able to kind to pull himself with his legs down the greenwood in the nursing facility to go play bingo. He is not doing any sort of physical activity at this time. As mentioned above, he continues to smoke. Reportedly his blood pressure is well-controlled. He is denying any chest pain or shortness of breath at the level of exertion he is at. A couple of months ago, he was able to leave the facility with a rollator. He did get pretty short winded after short amount of time. The patient is currently being worked out for a GI procedure with endoscopy under general anesthesia. There is concern for esophageal stricture and a hiatal hernia that may require intervention. Past Medical History: - COPD - Tobacco use - Alcohol use - Seizure disorder - Prior Hx of DVT on Eliquis - Hiatal hernia - GERD - Hypertension Past Surgical History Past Surgical History: Procedure Laterality Date APPENDECTOMY BACK SURGERY 5 vertabrae fused CHOLECYSTECTOMY COLONOSCOPY 2014 CT CHEST ANGIOGRAM W AND/OR WO IV CONTRAST 04/08/2022 CT CHEST ANGIOGRAM W AND/OR WO IV CONTRAST 04/08/2022 [facility] CT IMAGING CYST REMOVAL wrist GASTROSTOMY TUBE PLACEMENT 03/01/2017 UPPER GASTROINTESTINAL ENDOSCOPY 02/16/2017 Family History Family History Problem Relation Name Age of Onset Diabetes Mother Diabetes Brother Social History Social History Tobacco Use Smoking status: Some Days Packs/day: 1.00 Years: 30.00 Additional pack years: 0.00 Total pack years: 30.00 Types: Cigarettes Smokeless tobacco: Never Substance Use Topics Alcohol use: Yes Drug use: Not Currently Allergies: Allergies Allergen Reactions Haloperidol Unknown Other reaction(s): Unknown Copied from [facility] from halfway Paregoric Medications: Current Outpatient Medications: acetaminophen (Tylenol) 325 MG tablet, Take by mouth., Disp: , Rfl: Albuterol Sulfate 108 (90 Base) MCG/ACT aerosol powder , Inhale., Disp: , Rfl: apixaban (Eliquis) 5 MG tablet, Take 5 mg by mouth in the morning and 5 mg before bedtime., Disp: , Rfl: bacitracin 500 UNIT/GM ointment, , Disp: , Rfl: baclofen (Lioresal) 10 MG tablet, Take 10 mg by mouth., Disp: , Rfl: bisacodyl (Dulcolax) 5 MG EC tablet, Take 5 mg by mouth Daily as needed., Disp: , Rfl: cholecalciferol (Vitamin D-3) 125 MCG (5000 UT) capsule, Take 5,000 Units by mouth in the morning., Disp: , Rfl: divalproex (Depakote) 125 MG EC tablet, Take 500 mg by mouth., Disp: , Rfl: escitalopram (Lexapro) 20 MG tablet, Take 20 mg by mouth in the morning., Disp: , Rfl: folic acid (Folvite) 1 MG tablet, , Disp: , Rfl: guaiFENesin-codeine (Robitussin-AC) 100-10 MG/5ML syrup, Take by mouth., Disp: , Rfl: ipratropium-albuterol (Duo-Neb) 0.5-2.5 mg/3 mL nebulizer solution, Inhale 3 mL., Disp: , Rfl: levETIRAcetam (Keppra) 750 MG tablet, Take 1 tablet by mouth in the morning and 1 tablet before bedtime., Disp: , Rfl: levETIRAcetam (Spritam) 750 MG Tablet Disintegrating Soluble, , Disp: , Rfl: melatonin 3 MG tablet, , Disp: , Rfl: naltrexone (Depade) 50 MG tablet, Take 50 mg by mouth in the morning., Disp: , Rfl: ondansetron (Zofran) 4 MG/5ML solution, , Disp: , Rfl: pantoprazole (ProtoNix) 40 MG EC tablet, , Disp: , Rfl: polyethylene glycol, PEG, 3350 (Glycolax) 17 GM/SCOOP powder, Take by mouth., Disp: , Rfl: pyridoxine (Vitamin B-6) 25 MG tablet, , Disp: , Rfl: QUEtiapine (SEROquel) 200 MG tablet, , Disp: , Rfl: thiamine (Vitamin B-1) 100 MG tablet, , Disp: , Rfl: carvedilol (Coreg) 3.125 MG tablet, Take 3.125 mg by mouth in the morning and 3.125 mg in the evening. Take with meals., Disp: , Rfl: magnesium hydroxide (Milk of Magnesia) 400 MG/5ML suspension, Take 30 mL by mouth Daily as needed., Disp: , Rfl: Menthol, Topical Analgesic, (Biofreeze Roll-On) 4 % gel, Apply topically., Disp: , Rfl: mirtazapine (Remeron) 7.5 MG tablet, Take 7.5 mg by mouth Nightly., Disp: , Rfl: Review of Systems: All full and complete review of systems was performed and was negative except for what is mentioned in the HPI. Physical Examination: Vitals: Vitals: 04/27/23 1009 BP: 110/60 BP Location: Right arm Patient Position: Sitting BP Cuff Size: Adult Pulse: 105 Resp: 15 Weight: 224 lb (102 kg) Height: 5' 10 (1.778 m) Body mass index is 32.14 kg/m . Physical Exam: GEN: NAD, A&Ox3, cooperative, mood appropriate EYES: PERRL, EOMI. Anicteric sclerae. Moist conjunctivae. HEENT: NCAT, Extrenal ears without defect, Oropharynx with moist mucous membranes, no exudate. Neck: No JVD. Heart: regular rate and rhythm, No murmurs or rubs. Lungs: Clear to ausculation bilaterally without any wheezing or crackles. Abd: Soft, non-tender, non-distended. Ext: No edema. No clubbing or cyanosis. Normal muscle strength. Laboratory Tests: Lab Results Component Value Date WBC 12.8 (H) 04/08/2022 HGB 15.4 04/08/2022 HCT 44.3 04/08/2022 MCV 87.5 04/08/2022 PLT 201 04/08/2022 Lab Results Component Value Date GLUCOSE 117 (H) 04/08/2022 CALCIUM 9.5 04/08/2022 NA 136 04/08/2022 K 4.1 04/08/2022 CO2 20 (L) 04/08/2022 CL 103 04/08/2022 BUN 11 04/08/2022 CREATININE 1.21 04/08/2022 EKG 04/27/2023 (Personally reviewed) Sinus tachycardia Transthoracic Echocardiogram 02/19/2017: 1. Procedure narrative: Image quality was fair. The study was technically limited due to mechanical ventilation and respiratory interference. Repeat the study when heart rate is less than 80/min for better LV evaluation. 2. Left ventricle: Systolic function is severely decreased by the biplane method of disks. The estimated ejection fraction is 25%. Hypokinesis of the mid-apical myocardium. Dyskinesis of the basalanteroseptal and apical myocardium. Doppler parameters are consistent with abnormal left ventricular relaxation (grade 1 diastolic dysfunction). Assessment and Plan: # Pre-op risk stratification: Patient is currently being worked up for endoscopy under general anesthesia for potential strictures and hiatal hernia. He is currently not very active. He lives in a nursing facility and is predominantly wheelchair-bound. He is doing less than 4 METS at this time. He does endorse some shortness of breath though no chest pain is reported. He does have some risk factors for coronary artery disease including underlying history of hypertension and extensive tobacco use. I would recommend a pharmacological nuclear stress test prior to his upcoming surgery to help with stratify the patient. I was also able to find an echocardiogram from January 2017 that showed an EF of 25%. It seems like the patient might of been admitted with intubation around that time. Perhaps this was related to acute illness and stress-induced cardiomyopathy. I will also order an echocardiogram to evaluate his LV function. Clinically he is not showing any evidence of heart failure on exam today. # Hypertension: Blood pressure is well-controlled. Continue Coreg 3.25 mg twice daily. # Tobacco use: Still a current smoker. Has had extensive smoking history. Will continue to address smoking cessation at future visits as well. RTC in 3 months for DIRECTOR OF AUDIOLOGY visit Wero Parker MD, [facility] Rn Occupational [facility] [address] [place] [address] p [phone] f [phone] [email or web address] [facility] [place] documented in this encounter [facility] 11-14-2021 Hospital Discharge instructions Saida Carvalho DO - 11/14/2021 8:32 AM EDT Continuity of Care Form Patient Name: Kari Allan : 1970 Admit date: 11/13/2021 Discharge date: Code Status Order: Prior Advance Directives: Admitting Physician: No admitting provider for patient encounter. PCP: Christa Gloria MD Discharging Nurse: Discharging Hospital Unit/Room#: WRIGHT/WRIGHT Discharging Unit Phone Number: Emergency Contact: No emergency contact information on file. Past Surgical History: Past Surgical History: Procedure Laterality Date APPENDECTOMY BACK SURGERY 5 vertabrae fused CHOLECYSTECTOMY COLONOSCOPY 2014 CYST REMOVAL wrist GASTROSTOMY TUBE PLACEMENT 03/01/2017 UPPER GASTROINTESTINAL ENDOSCOPY 02/16/2017 Immunization History: Immunization History Administered Date(s) Administered Influenza Whole 02/26/2015 Pneumococcal Polysaccharide ([id number]) 02/17/2013 Active Problems: Patient Active Problem List Diagnosis Code Renal cyst N28.1 Back pain M54.9 Deep vein thrombosis (HCC) I82.409 Hip pain M25.559 Pain of lower extremity M79.606 Obstructive chronic bronchitis without exacerbation (HCC) J44.9 Alcohol-induced acute pancreatitis without infection or necrosis K85.20 GERD (gastroesophageal reflux disease) K21.9 Hypertension I10 Alcohol abuse F10.10 Acute alcoholic gastritis K29.20 Chronic pancreatitis (HCC) K86.1 Acute respiratory failure with hypoxia (HCC) J96.01 Seizure (HCC) R56.9 Sepsis (HCC) A41.9 Blood poisoning [id number] Drug overdose T50.901A Tobacco abuse Z72.0 Febrile illness R50.9 Encephalopathy acute G93.40 Acute respiratory failure (HCC) J96.00 Encephalopathy G93.40 C. difficile diarrhea A04.72 Isolation/Infection: Isolation No Isolation Patient Infection Status Infection Onset Added Last Indicated Last Indicated By Review Planned Expiration Resolved Resolved By None active Resolved COVID-19 (Rule Out) 11/13/21 11/13/21 11/14/21 COVID-19, Flu A/B, and RSV Combo (Ordered) 11/14/21 Rule-Out Test Resulted Nurse Assessment: Last Vital Signs: BP 119/74 Pulse 90 Temp (!) 96.3 F (35.7 C) (Temporal) Resp 18 SpO2 90% Last documented pain score (0-10 scale): Last Weight: Wt Readings from Last 1 Encounters: 03/03/17 63.5 kg (140 lb) Mental Status: {IP PT MENTAL STATUS:} IV Access: { BONNIE IV ACCESS:790713968} Nursing Mobility/ADLs: Walking {CHP DME ADLs:489378742} Transfer {CHP DME ADLs:667100475} Bathing {CHP DME ADLs:549622980} Dressing {CHP DME ADLs:708139720} Toileting {CHP DME ADLs:604805429} Feeding {CHP DME ADLs:107753395} Automotive Title Clerk {P DME ADLs:327966073} Med Delivery { BONNIE MED Delivery:806863401} Wound Care Documentation and Therapy: Elimination: Continence: Bowel: {YES / NO:} Bladder: {YES / NO:} Urinary Catheter: {Urinary Catheter:204489325} Colostomy/Ileostomy/Ileal Conduit: {YES / NO:} Date of Last BM: No intake or output data in the 24 hours ending 11/14/21 0832 No intake/output data recorded. Safety Concerns: { BONNIE Safety Concerns:932011601} Impairments/Disabilities: { BONNIE Impairments/Disabilities:856561591} Nutrition Therapy: Current Nutrition Therapy: { BONNIE Diet List:203524446} Routes of Feeding: {CHP DME Other Feedings:791557827} Liquids: {[facility] liquid thickness:26216} Daily Fluid Restriction: {CHP DME Yes amt example:460732002} Last Modified Barium Swallow with Video (Video Swallowing Test): {Done Not Done Date:} Treatments at the Time of Hospital Discharge: Respiratory Treatments: Oxygen Therapy: {Therapy; copd oxygen:85834} Ventilator: {[facility] Vent List:235919154} Rehab Therapies: {THERAPEUTIC INTERVENTION:5966028074} Weight Bearing Status/Restrictions: {[facility] Weight Bearin} Other Medical Equipment (for information only, NOT a DME order): {EQUIPMENT:164644669} Other Treatments: Patient's personal belongings (please select all that are sent with patient): {[facility] DME Belongings:048189922} RN SIGNATURE: {Esignature:980779729} CASE MANAGEMENT/SOCIAL WORK SECTION Inpatient Status Date: Readmission Risk Assessment Score: Readmission Risk Risk of Unplanned Readmission: 0 Discharging to Facility/ Agency Name: Address: Phone: Fax: Dialysis Facility (if applicable) Name: Address: Dialysis Schedule: Phone: Fax: Industrial Cleaning Technician/Payroll Master signature: {Esignature:020275003} PHYSICIAN SECTION Prognosis: {Prognosis:9552480158} Condition at Discharge: { Patient Condition:135656066} Rehab Potential (if transferring to Rehab): {Prognosis:3375389445} Recommended Labs or Other Treatments After Discharge: Physician Certification: I certify the above information and transfer of Kari Allan is necessary for the continuing treatment of the diagnosis listed and that he requires {Admit to Appropriate Level of Care:41568} for {GREATER/LESS:429059493} 30 days. Update Admission H&P: {P DME Changes in HandP:253325447} PHYSICIAN SIGNATURE: {Esignature:965629913} Saida Agustin DO - 11/14/2021 Lab work reviewed, elevated D-dimer. CTA chest with no evidence of pulmonary embolism, thickened bronchial consistent with bronchiolitis, suspect post-COVID in nature. Patient will be discharged with prescription for prednisone, cough medication. Advised to follow with primary care physician and return to the emergency department for new or worsening symptoms. The following attachments cannot be sent through Care Everywhere.SOB (Shortness of Breath) (Lebanese)documented in this encounter [facility] Work Phone: Evaluation note No assessment information [facility] Work Phone: Evaluation note Diagnosis Dyspnea and respiratory abnormalities- Primary Other dyspnea and respiratory abnormality Bronchitis Bronchitis, not specified as acute or chronic documented in this encounter [facility] Work Phone: Evaluation note* Diagnosis Cardiomyopathy, unspecified type (HCC)- Primary Shortness of breath Preop cardiovascular exam Pre-operative cardiovascular examination Essential hypertension Unspecified essential hypertension Tobacco abuse Tobacco use disorder [facility] Diagnosis Cardiomyopathy, unspecified type (HCC) [facility]* Diagnosis COVID- Primary COVID Hypoxia Hypoxemia [facility]* Diagnosis Generalized abdominal pain- Primary Abdominal pain, generalized Renal mass Unspecified disorder of kidney and ureter [facility]* Diagnosis Acquired renal cyst of left kidney- Primary [facility]* Diagnosis Altered mental status, unspecified altered mental status type- Primary Acute midline low back pain without sciatica Encephalopathy Unspecified encephalopathy [facility] Diagnosis Chronic bronchitis, unspecified chronic bronchitis type (HCC) Preoperative respiratory examination Pre-operative respiratory examination [facility]* Diagnosis Abdominal pain, unspecified abdominal location- Primary [facility]* Diagnosis Upper GI bleeding- Primary Unspecified, hemorrhage of gastrointestinal tract Upper GI bleeding Unspecified, hemorrhage of gastrointestinal tract Abdominal pain, generalized Right leg pain Pain in soft tissues of limb Shortness of breath Preop cardiovascular exam Pre-operative cardiovascular examination Hx of deep venous thrombosis Right calf pain [facility]* Diagnosis Renal lesion- Primary Elevated PSA Elevated prostate specific antigen (PSA) BPH with urinary obstruction Hypertrophy of prostate with urinary obstruction and other lower urinary tract symptoms (LUTS) [facility]* Diagnosis Pre-operative examination- Primary Preoperative examination, unspecified Iron deficiency anemia due to chronic blood loss Iron deficiency anemia secondary to blood loss (chronic) PTSD (post-traumatic stress disorder) Posttraumatic stress disorder Deep vein thrombosis (DVT) of lower extremity, unspecified chronicity, unspecified laterality, unspecified vein (HCC) Anoxic brain injury (HCC) Anoxic brain damage Seizure disorder (HCC) Unspecified epilepsy without mention of intractable epilepsy COPD, mild (HCC) Chronic airway obstruction, not elsewhere classified Opiate dependence, continuous (HCC) Opioid type dependence, continuous Nicotine use disorder, F17.2 Tobacco use disorder Anemia, unspecified type- Primary Epigastric pain Abdominal pain, epigastric [facility] Diagnosis Tobacco abuse- Primary Tobacco use disorder documented in this encounter [facility] note* Diagnosis Tobacco abuse- Primary Tobacco use disorder documented in this encounter [facility] for referral (narrative)* Consultation (Urgent) - Pending Review Specialty Diagnoses / Procedures Referred By Tanisha tyson Referred To Contact Urology Diagnoses Renal mass Procedures OK OFFICE/OUTPATIENT NEW HIGH MDM 60 MINUTES Fan Marcial MD [address] [place] [address] Sh Ach Renalmass Cl [address] [place] [address] Referral ID Status Reason Start Date Expiration Date Visits Requested Visits Authorized [id number] Pending Review Specialty Services Required 3 05/29/2024 1 1 [facility] for referral (narrative)* Outpatient Procedure (Routine) - New Request Specialty Diagnoses / Procedures Referred By Tanisha tyson Referred To Contact [facility] Diagnoses Anemia, unspecified type Epigastric pain Procedures EGD DIAGNOSTIC ESOPHAGOGASTRODUODENOSC OPY TRANSORAL DIAGNOSTIC Andreas Lind LIBRARY CUSTOMER SERVICE CLERK.TUBULAR STOCK GLASS BULB MACHINE FORMER [address] [place] [address] [facility] [address] [place] [address] Referral ID Status Reason Start Date Expiration Date Visits Requested Visits Authorized [id number] New Request Auto-Generat ed Referral 03/03/2024 03/03/2025 1 1 Electronically signed by Andreas Lind LIBRARY CUSTOMER SERVICE CLERK.TUBULAR STOCK GLASS BULB MACHINE FORMER at 03/03/2024 9:42 AM EDT * Outpatient Procedure (Routine) - New Request Specialty Diagnoses / Procedures Referred By Tanisha t Referred To Contact [facility] Diagnoses Anemia, unspecified type Procedures COLONOSCOPY DIAGNOSTIC COLONOSCOPY FLX DX W/COLLJ SPEC WHEN PFRMD Andreas Lind APRN.CNP [address] [place] [address] [facility] [address] [place] [address] Referral ID Status Reason Start Date Expiration Date Visits Requested Visits Authorized [id number] New Request Auto-Generat ed Referral 03/03/2024 03/03/2025 1 1 [facility] for referral (narrative)No reason [facility] Work [facility]: Summary Purpose Family History No Family History Records FoundNo Family History Records FoundNo Family History Records FoundNo Family History Records FoundNo Family History Records FoundNo Family History Records FoundNo Family History Records FoundNo Family History Records FoundNo Family History Records FoundNo Family History Records FoundNo Family History Records Found Advance Directives No Advanced Directives Records FoundDocuments on File Type Date Recorded 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 Expl anation ACP-Advance Directive ACP-Power of Argon Tester Latest Code Status on File Code Status Date Activated Date Inactivated Comments Full Code 02/19/2017 3:15 PM 03/03/2017 3:06 PM Full Code 02/14/2017 3:23 AM 02/17/2017 1:35 PM Full Code 12/18/2016 8:52 AM 12/22/2016 7:23 PM Full Code 10/21/2016 5:48 PM 10/25/2016 5:50 PM Full Code 10/21/2016 5:39 PM 10/21/2016 5:48 PM Documents on File Type Date Recorded 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 Expl anation DNR (Do Not Resuscitate) 05/19/2023 10:50 PM Latest Code Status on File Code Status Date Activated Date Inactivated Comments DNR-CCA 05/19/2023 10:49 PM Question Answer Comments ICU transfer: No Documents on File Type Date Recorded 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 Expl 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 DNR (Do Not Resuscitate) 05/19/2023 10:50 PM Latest Code Status on File Code Status Date Activated Date Inactivated Comments Full Code 05/20/2023 8:55 PM Code Status History Code Status Date Activated Date Inactivated Comments DNR-CCA 05/19/2023 10:49 PM 05/20/2023 8:55 PM Question Answer Comments ICU transfer: No Latest Code Status on File Code Status Date Activated Date Inactivated Comments Full Code 05/20/2023 8:55 PM 05/22/2023 3:38 AM Code Status History Code Status Date Activated Date Inactivated Comments DNR-CCA 05/19/2023 10:49 PM 05/20/2023 8:55 PM Question Answer Comments ICU transfer: No Latest Code Status on File Code Status Date Activated Date Inactivated Comments Full Code 05/20/2023 8:55 PM 05/22/2023 3:38 AM Code Status History Code Status Date Activated Date Inactivated Comments DNR-CCA 05/19/2023 10:49 PM 05/20/2023 8:55 PM Question Answer Comments ICU transfer: No Latest Code Status on File Code Status Date Activated Date Inactivated Comments DNR-CCA 08/19/2023 12:57 PM 08/21/2023 3:36 PM Question Answer Comments ICU transfer: Yes Intubation: No Code Status History Code Status Date Activated Date Inactivated Comments Full Code 05/20/2023 8:55 PM 05/22/2023 3:38 AM DNR-CCA 05/19/2023 10:49 PM 05/20/2023 8:55 PM Question Answer Comments ICU transfer: No Latest Code Status on File Code Status Date Activated Date Inactivated Comments DNR-CCA 08/19/2023 12:57 PM 08/21/2023 3:36 PM Question Answer Comments ICU transfer: Yes Intubation: No Code Status History Code Status Date Activated Date Inactivated Comments Full Code 05/20/2023 8:55 PM 05/22/2023 3:38 AM DNR-CCA 05/19/2023 10:49 PM 05/20/2023 8:55 PM Question Answer Comments ICU transfer: No Date Activated Date Inactivated Comments 09/24/2019 11:20 AM 09/29/2019 7:07 PM Question Answer Comments DNR Order Discussed With: State-Approved DNR Ananda ntification Date Activated Date Inactivated Comments 10/27/2018 7:20 PM 11/11/2018 12:35 PM Question Answer Comments DNR Order Discussed With: State-Approved DNR Ananda ntification Date Activated Date Inactivated Comments 10/01/2017 7:48 PM 10/13/2017 2:57 PM Question Answer Comments DNR Discussed with: Signed DNR Form Presented Process Instructions Reviewe d By (Last Name, First Name): TESFAYE DANIEL Date Activated Date Inactivated Comments 09/28/2017 6:54 PM 10/01/2017 7:38 PM Question Answer Comments DNR Discussed with: Signed DNR Form Presented Process Instructions Reviewe d By (Last Name, First Name): TESFAYE DANIEL Date Activated Date Inactivated Comments 09/21/2017 5:55 AM 09/28/2017 4:16 PM Question Answer Comments DNR Discussed with: Signed DNR Form Presented Date Activated Date Inactivated Comments 08/19/2023 12:57 PM 08/21/2023 3:36 PM Question Answer Comments ICU transfer: Yes Intubation: No Date Activated Date Inactivated Comments 05/20/2023 8:55 PM 05/22/2023 3:38 AM Date Activated Date Inactivated Comments 05/19/2023 10:49 PM 05/20/2023 8:55 PM Question Answer Comments ICU transfer: No Date Activated Date Inactivated Comments 08/19/2023 12:57 PM 08/21/2023 3:36 PM Question Answer Comments ICU transfer: Yes Intubation: No Date Activated Date Inactivated Comments 05/20/2023 8:55 PM 05/22/2023 3:38 AM Date Activated Date Inactivated Comments 05/19/2023 10:49 PM 05/20/2023 8:55 PM Question Answer Comments ICU transfer: No Hospital Course Note HNO ID: [id number] Author: Aziza Palomares Service: Psychiatry Author Type: Physician Type: Discharge Summary Filed: 11/18/2018 10:00 AM Note Text: DISCHARGE SUMMARY BEHAVIORAL HEALTH PATIENT NAME: Kari Allan ADMISSION DATE: 10/27/2018 DISCHARGE DATE: 11/18/2018 ATTENDING PHYSICIAN: Ajith Palomares Code Status: Prior Highest Readmission Risk Score: 26 The 30 day readmissions risk score is derived from an internally validated risk model which evaluates patient level characteristics, utilization history, medication orders and lab results up until the day of discharge. Patients with a score of 40 or above are considered highest risk for readmission. Specific patient level drivers will be listed at the bottom of the summary. REASON FOR HOSPITALIZATION: Failure of outpatient psychiatric management DISCHARGE DIAGNOSIS: 1. PRIMARY: Impulse-Control Disorder Intermittent Explosive Disorder 2. tbi 3. pba 4. Alcohol dep history in remission OPERATIONS DURING HOSPITALIZ (more content not included)... Note HNO ID: [id number] Author: Genoveva Gomez Service: Behavioral Health Author Type: Physician Type: Discharge Summary Filed: 12/18/2019 9:34 PM Note Text: DISCHARGE SUMMARY BEHAVIORAL HEALTH PATIENT NAME: Kari Allan ADMISSION DATE: 12/04/2019 DISCHARGE DATE: 12/18/2019 ATTENDING PHYSICIAN: Rosalie Gomez Code Status: Prior Highest Readmission Risk Score: 34 The 30 day readmissions risk score is derived from an internally validated risk model which evaluates patient level characteristics, utilization history, medication orders and lab results up until the day of discharge. Patients with a score of 40 or above are considered highest risk for readmission. Specific patient level drivers will be listed at the bottom of the summary. REASON FOR HOSPITALIZATION: Risk of physical harm to others DISCHARGE DIAGNOSIS: 1. PRIMARY: Encephalopathy secondary to anoxic brain injury (manifesting as anoxic brain injury) GAF: -40-31 Some impairment in reality testing or communication or m (more content not included)... Note HNO ID: [id number] Author: Tanya Perez Service: Psychiatry Author Type: Physician Type: Discharge Summary Filed: 03/11/2020 4:53 PM Note Text: DISCHARGE SUMMARY BEHAVIORAL HEALTH PATIENT NAME: Kari Allan ADMISSION DATE: 03/06/2020 DISCHARGE DATE: 03/11/2020 ATTENDING PHYSICIAN: Chelsi Perez Code Status: Prior Highest Readmission Risk Score: 48 The 30 day readmissions risk score is derived from an internally validated risk model which evaluates patient level characteristics, utilization history, medication orders and lab results up until the day of discharge. Patients with a score of 40 or above are considered highest risk for readmission. Specific patient level drivers will be listed at the bottom of the summary. REASON FOR HOSPITALIZATION: Risk of physical harm to others DISCHARGE DIAGNOSIS: 1. Neurocognitive disorder with behavioral disturbance 2. Alcohol use disorder in remission GAF: 50-41 Serious symptoms or any serious impairment in social, oc (more content not included)... Chief Complaint and Reason for Visit Chief Complaint LABWORK LABWORK Chief Complaint INTERMEDIATE LAB WOR K LABWORK LABWORK Chief Complaint INTERMEDIATE LAB WOR K LABWORK LABWORK INTERMEDIATE LAB WORK Chief Complaint INTERMEDIATE LAB WOR K LABWORK LABWORK INTERMEDIATE LAB WORK INTERMEDIATE LAB WORK Chief Complaint INTERMEDIATE LAB WOR K LABWORK LABWORK LABWORK Chief Complaint LABWORK LABWORK LABWORK INTERMEDIATE LAB WORK Chief Complaint LABWORK LABWORK LABWORK LABWORK INTERMEDIATE LAB WORK INTERMEDIATE LAB WORK Chief Complaint LABWORK LABWORK LABWORK LABWORK INTERMEDIATE LAB WORK INTERMEDIATE LAB WORK LABWORK INTERMEDIATE LABWORK Chief Complaint LABWORK LABWORK LABWORK INTERMEDIATE LAB WORK INTERMEDIATE LAB WORK LABWORK INTERMEDIATE LABWORK LABWORK INTERMEDIATE LAB DRAW Chief Complaint LABWORK LABWORK INTERMEDIATE LAB WORK INTERMEDIATE LAB WORK LABWORK INTERMEDIATE LABWORK LABWORK INTERMEDIATE LAB DRAW LABWORK Chief Complaint LABWORK INTERMEDIATE LAB WORK INTERMEDIATE LAB WORK LABWORK INTERMEDIATE LABWORK LABWORK INTERMEDIATE LAB DRAW LABWORK INTERMEDIATE LABWORK Chief Complaint INTERMEDIATE LABWORK INTERMEDIATE LAB WORK LABWORK INTERMEDIATE LAB WORK Chief Complaint INTERMEDIATE LAB WOR K LABWORK INTERMEDIATE LAB WORK Chief Complaint LABWORK INTERMEDIATE LAB WORK LABWORK LABWORK Chief Complaint LABWORK LABWORK INTERMEDIATE LAB WORK Chief Complaint LABWORK LABWORK INTERMEDIATE LAB WORK LABWORK Chief Complaint LABWORK LABWORK LABWORK INTERMEDIATE LAB WORK LABWORK Chief Complaint Admit Date INTERMEDIATE LAB WORK April 20 5:00am INTERMEDIATE LAB WORK April 28 5:00am INTERMEDIATE LAB WORK May 09 9:00pm LABWORK July 21, 2024 5:00am Chief Complaint Admit Date LABWORK July 21, 2024 5:00am LABWORK August 23, 2024 5:0 0am LABWORK August 28, 2024 5:0 0am Reason for Referral Specialty Diagnoses / Procedures Referred By Contsilas t Referred To Contact Cardiology Diagnoses Shortness of breath Preop cardiovascular exam Procedures Nuclear REGADENOSON stress test with myocardial perfusion Wero Parker MD [address] [place] [address] Referral ID Status Reason Start Date Expiration Date V isits Requested Visits Authorized [id number] Authorized 04/27/2023 10/24/2023 1 1 Specialty Diagnoses / Procedures Referred By Tanisha t Referred To Contact Cardiology Diagnoses Cardiomyopathy, unspecified type (HCC) Procedures Transthoracic echocardiogram (TTE) complete with contrast, bubble, strain, and 3D PRN OK ECHO TTHRC R-T 2D W/WOM-MODE COMPL SPEC&COLR D OK TTE W OR WO FOL WCON,DOPPLER Wero Parker MD [address] [place] [address] Referral ID Status Reason Start Date Expiration Date V isits Requested Visits Authorized [id number] Pending Review 04/27/2023 04/26/2024 1 1 Referral ID Status Reason Start Date Expiration Date Visits Re quested Visits Authorized [id number] Closed 04/27/2023 04/26/2024 1 1 Specialty Diagnoses / Procedures Referred By Tanisha t Referred To Contact Pulmonology Diagnoses Chronic bronchitis, unspecified chronic bronchitis type (HCC) Preoperative respiratory examination Procedures Complete PFT pre and post bronchodilator Jasen López MD [address] [place] [id number] Referral ID Status Reason Start Date Expiration Date Visits Re quested Visits Authorized [id number] Closed 04/02/2023 09/29/2023 1 1 Additional Source Comments (unrecognized sect ion and content) No Status Records FoundNo Status Records FoundNo Status Records FoundNo Status Records FoundNo Status Records FoundNo Status Records FoundNo Status Records FoundNo Status Records FoundNo Status Records FoundNo Status Records FoundNo Status Records Found INFORMATION SOURCE (unrecogn ized section and content) DATE CREATED AUTHOR 11/18/2017 [facility] DATE CREATED AUTHOR AUTHOR'S ORGANIZ ATION 11/23/2017 [facility] DATE CREATED AUTHOR AUTHOR'S ORGANIZ ATION 11/18/2018 [facility] DATE CREATED AUTHOR AUTHOR'S ORGANIZ ATION 12/21/2019 [facility] DATE CREATED AUTHOR AUTHOR'S ORGANIZ ATION 03/11/2020 [facility] DATE CREATED AUTHOR AUTHOR'S ORGANIZ ATION 11/22/2021 [facility] DATE CREATED AUTHOR AUTHOR'S ORGANIZ ATION 02/13/2024 [facility] DATE CREATED AUTHOR AUTHOR'S ORGANIZ ATION 02/14/2024 [facility] DATE CREATED AUTHOR AUTHOR'S ORGANIZ ATION 03/05/2024 [facility] DATE CREATED AUTHOR AUTHOR'S ORGANIZ ATION 07/09/2024 [facility] DATE CREATED AUTHOR AUTHOR'S ORGANIZ ATION 2024 [facility] Goals (unrecognized section and content) Goals may be documented in a n alternate sectionGoals may be documented in an alternate sectionGoals may be documented in an alternate sectionGoals may be documented in an alternate sectionGoals may be documented in an alternate sectionGoals may be documented in an alternate sectionGoals may be documented in an alternate sectionGoals may be documented in an alternate sectionGoals may be documented in an alternate sectionGoals may be documented in an alternate sectionGoals may be documented in an alternate sectionGoals may be documented in an alternate sectionGoals may be documented in an alternate sectionGoals may be documented in an alternate sectionGoals may be documented in an alternate sectionGoals may be documented in an alternate sectionGoals may be documented in an alternate sectionGoals may be documented in an alternate sectionGoals may be documented in an alternate sectionGoals may be documented in an alternate sectionGoals may be documented in an alternate sectionGoals may be documented in an alternate sectionGoals may be documented in an alternate sectionGoals may be documented in an alternate sectionGoals may be documented in an alternate sectionGoals may be documented in an alternate sectionGoals may be documented in an alternate section Reason for Visit (unrecogniz ed section and content) Reason Comments Shortness of Breath Cough Reason Comments Establish Care Cardiac Clearance Specialty Diagnoses / Procedures Referred By Contac t Referred To Contact Cardiology Diagnoses Cardiomyopathy, unspecified type (HCC) Procedures Transthoracic echocardiogram (TTE) complete with contrast, bubble, strain, and 3D PRN OK ECHO TTHRC R-T 2D W/WOM-MODE COMPL SPEC&COLR D OK TTE W OR WO FOL WCON,Wero Cross MD [address] [place] [address] Referral ID Status Reason Start Date Expiration Date Visits Re quested Visits Authorized [id number] Closed 04/27/2023 04/26/2024 1 1 Specialty Diagnoses / Procedures Referred By Contac t Referred To Contact Diagnoses COVID Procedures .. Ashlie Alcantara, DO [address] [place] [address] [facility] Emergency Dept [address] [place] [address] Referral ID Status Reason Start Date Expiration Date Visits Re quested Visits Authorized [id number] 1 1 Reason Comments Fall Shortness of Breath Specialty Diagnoses / Procedures Referred By Contac t Referred To Contact Diagnoses COVID Procedures .. Ashlie Alcantara, DO [address] [place] [address] [facility] Emergency Dept [address] [place] [address] Reason Comments Back Pain Pt presents to er fr snf for chronic back pain that is worsening. Pt is aox4 speaking in full sentences. Pt has hx of multiple falls and spinal cage from bulging discs. Pt states pain is 10/10 in lower mid back. Reason Onset Date Comments Appointment 06/01/2023 Reason Comments Altered Mental Status Patient presents t o ED via EMS from SNF for altered mental status. Per facility staff, patient is normally A&Ox2 at baseline, states patient has been more confused and verbally aggressive x 1 week after discharge from the hospital. Patient was recently started on Tramadol, facility states they are not sure if the medication change is affecting patient's behavior. Patient A&Ox2 on arrival to ED. Patient complains of abdominal pain Reason Comments Nurse Navigation Specialty Diagnoses / Procedures Referred By Contac t Referred To Contact Pulmonology Diagnoses Chronic bronchitis, unspecified chronic bronchitis type (HCC) Preoperative respiratory examination Procedures Complete PFT pre and post bronchodilator Jasen López MD [address] [place] [address] Referral ID Status Reason Start Date Expiration Date Visits Re quested Visits Authorized [id number] Closed 04/02/2023 09/29/2023 1 1 Reason Comments Abdominal Pain Specialty Diagnoses / Procedures Referred By Contac t Referred To Contact Diagnoses Abdominal pain, generalized Upper GI bleeding Right leg pain Procedures .. 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 45 mL 0 11/14/2021 11/17/2021 predniSONE (DELTASONE) 50 MG tablet Take 1 tablet by mouth daily for 5 days 5 tablet 0 11/14/2021 11/19/2021 Scheduled Active and Recently Administ ered Medications (unrecognized section and content) Medication Order 11/12/2021 11/13/2021 11/14/2021 guaiFENesin-codeine (GUAIFENESIN AC) 100-10 MG/5ML liquid 5 mL mg dosing is based on codeine component., 5 mL, Oral, ONCE, 1 dose, On Wed11/14/21 at 0609 0609 (Due) sodium chloride flush 0.9 % injection 3 mL(Linked Group 1) 3 mL, IntraVENous, EVERY 8 HOURS, First dose on Wed11/14/21 at 0000, Until Discontinued, Flush line with 3-5 mL 0000 (Due)0841 (Not Given - Provider: Addie Drake RN - Reason: Contraindicated - Comment: iv dc, pt dc)1600 (Due) PRN Medication Order 11/12/2021 11/13/2021 11/14/2021 iopamidol (ISOVUE-370) 76 % injection 75 mL (COMPLETED) 75 mL, IntraVENous, IMG ONCE PRN, 1 dose, Starting on Wed11/14/21 at 0621, Until Wed11/14/21 at 0624, Other 0624 (Given - Provid er: Augustus Merritt) Linked Groups Order Group 1: Saline lock IV (COMPLETED) Routine, CONTINUOUS, Starting on Wed11/14/21 at 0000, Until Specified And sodium chloride flush 0.9 % injection 3 mLJump to med 3 mL, IntraVENous, EVERY 8 HOURS, First dose on Wed11/14/21 at 0000, Until Discontinued
Flush line with 3-5 mL
Scheduled Medication Order 05/19/2023 05/20/2023 05/21/2023 apixaban (Eliquis) tablet 5 mg 5 mg, Oral, 2 times daily, First dose on Francy 05/20/23 at 1200, Anticoagulant 1526 (Given - Provider: Jodi Cho RN - Comment: was given at 0200) 0015 (Given - Provider: SHELLEY BRUSH)1123 (Given - Provider: Apryl Underwood LPN) apixaban (Eliquis) tablet 5 mg (CANCELED) 5 mg, Oral, 2 times daily, First dose on Wed05/20/23 at 0145, Anticoagulant 0209 (Given - Provider: Lynda Savage RN) baclofen (Lioresal) tablet 10 mg 10 mg, Oral, 3 times daily, First dose on Wed05/20/23 at 2100 2118 (Given - Provider: SHELLEY BRUSH) 1111 (Given - Provider: Apryl Underwood LPN)1400 (Not Given - Provider: Apryl Underwood LPN - Reason: Order parameters not met)2050 (Given - Provider: SHELLEY BRUSH) dexAMETHasone (Decadron) tablet 6 mg (CANCELED) 6 mg, Oral, Daily, First dose on Wed05/20/23 at 2100, For 10 doses 2117 (Given - Provider: SHELLEY BRUSH) 0900 (Not Given - Provider: Apryl Underwood LPN - Reason: See Provider Order) dexAMETHasone (Decadron) tablet 8 mg (COMPLETED) 8 mg, Oral, Once, On Francy 05/20/23 at 0715, For 1 dose 0722 (Given - Provider: Betsey Marcial RN) divalproex sprinkle (Depakote Sprinkle) DR capsule 500 mg 500 mg, Oral, 3 times daily, First dose on Francy 12/21/23 at 2099, Do not crush or chew. 2212 (Given - Provider: SHELLEY BRUSH) 1111 (Given - Provider: Apryl Underwood LPN)1400 (Not Given - Provider: Apryl Underwood LPN - Reason: Order parameters not met)2050 (Given - Provider: SHELLEY BRUSH) enoxaparin (Lovenox) syringe 30 mg (CANCELED) 30 mg, SubCUTAneous, 2 times daily, First dose on Wed05/20/23 at 2099, Indication of Use: Prophylaxis-DVT/PE 2116 (Given - Provider: SHELLEY BRUSH) escitalopram (Lexapro) tablet 15 mg 15 mg, Oral, Daily, First dose on Wed05/20/23 at 2099 2118 (Given - Provider: SHELLEY BRUSH) 1111 (Given - Provider: Apryl Underwood LPN) folic acid (Folvite) tablet 1 mg 1 mg, Oral, Daily, First dose on Wed05/20/23 at 2099 2117 (Given - Provider: SHELLEY BRUSH) 1111 (Given - Provider: Apryl Underwood LPN) influenza vac subunit quadrivalent (Flucelvax) injection 0.5 mL 0.5 mL, IntraMUSCular, Prior to discharge, Starting on Wed05/21/23 at 0000, For 1 dose levETIRAcetam (Keppra) tablet 750 mg 750 mg, Oral, 2 times daily, First dose on Wed05/20/23 at 2099 2117 (Given - Provider: SHELLEY BRUSH) 1111 (Given - Provider: Apryl Underwood LPN)2050 (Given - Provider: SHELLEY BRUSH) naltrexone (Depade) tablet 50 mg 50 mg, Oral, Daily, First dose on Wed05/20/23 at 2099 2213 (Given - Provider: SHELLEY BRUSH) 0900 (Canceled Entry - Provider: Automatic Discharge Provider - Comment: Automatically canceled at discontinue of medication order) pantoprazole (ProtoNix) EC tablet 40 mg 40 mg, Oral, 2 times daily, First dose on Wed05/20/23 at 2099, Do not crush, chew, or split. 2118 (Given - Provider: SHELLEY BRUSH) 1111 (Given - Provider: Apryl Underwood LPN)2050 (Given - Provider: SHELLEY BRUSH) polyethylene glycol (PEG) 3350 (Miralax) packet 17 g 17 g, Oral, Daily, First dose on Francy 05/20/23 at 2100 2120 (Given - Provider: SHELLEY BRUSH) 1113 (Given - Provider: Apryl Underwood LPN) QUEtiapine (SEROquel) tablet 200 mg 200 mg, Oral, 2 times daily, First dose on Francy 05/20/23 at 2100 2118 (Given - Provider: SHELLEY BRUSH) 1111 (Given - Provider: Apryl Underwood LPN)205 (Given - Provider: SHELLEY BRUSH) remdesivir (Veklury) 100 mg in sodium chloride 0.9 % 250 mL IVPB 100 mg, IntraVENous, at 500 mL/hr, Administer over 30 Minutes, Every 24 hours, First dose on Wed05/21/23 at 1000, For 2 doses, Flush line with at least 30 mL normal saline after remdesivir infusion is complete. Follow remdesivir protocol for approved priming and administration instructions. After infusion, flush line with at least 30 mL NS at same rate as remdesivir infusion., Suspected Indication (Select all that apply): Immunocomp Host Prophylaxis 1123 (New Bag - Provider: Apryl Underwood LPN)1153 (Stopped - Provider: Apryl Underwood LPN) remdesivir (Veklury) 200 mg in sodium chloride 0.9 % 250 mL IVPB (COMPLETED) 200 mg, IntraVENous, at 500 mL/hr, Administer over 30 Minutes, Once, On Wed05/20/23 at 0900, For 1 dose, Flush line with at least 30 mL normal saline after remdesivir infusion is complete. Follow remdesivir protocol for approved priming and administration instructions. After infusion, flush line with at least 30 mL NS at same rate as remdesivir infusion., Suspected Indication (Select all that apply): Other, Other Abx Indication: Covid-19 0952 (New Bag - Provider: Betsey Marcial RN)1048 (Stopped - Provider: Betsey Marcial RN) sodium chloride 0.9 % bolus 1,000 mL (COMPLETED) 1,000 mL, IntraVENous, at 1,000 mL/hr, Administer over 1 Hours, Once, On Wed05/19/23 at 2225, For 1 dose 2305 (New Bag - Provider: Lynda Savage RN)2351 (Stopped - Provider: Lynda Savage RN) sodium chloride 0.9 % bolus 1,000 mL (COMPLETED) 1,000 mL, IntraVENous, at 1,000 mL/hr, Administer over 1 Hours, Once, On Francy 05/20/23 at 0325, For 1 dose 0325 (New Bag - Provider: Lynda Savage RN)0425 (Stopped - Provider: Lynda Savage RN) sodium chloride 0.9% (NS) flush 10 mL 10 mL, IntraVENous, Every 12 hours scheduled (2 times per day), First dose on Francy 05/20/23 at 2100 2116 (Given - Provider: SHELLEY BRUSH) 1114 (Given - Provider: Apryl Underwood LPN)2051 (Given - Provider: SHELLEY BURSH) tiotropium (Spiriva) 18 MCG per inhalation capsule 18 mcg 18 mcg (1 capsule), Inhalation, Daily, First dose on Wed05/21/23 at 1245, Not for oral use. To ensure drug delivery the contents of each capsule should be inhaled twice. 1245 (Canceled Entry - Provider: Automatic Discharge Provider - Comment: Automatically canceled at discontinue of medication order) PRN Medication Order 05/19/2023 05/20/2023 05/21/2023 acetaminophen (Tylenol) suppository 650 mg(Linked Group 1) 650 mg, Rectal, Every 6 hours PRN, mild pain (1-3), fever, For temp greater than 100.4 F (38 C), Starting on Francy 05/20/23 at 2053, Administer if oral route cannot be used. Maximum dose of acetaminophen is 4000 mg from all sources in 24 hours. acetaminophen (Tylenol) tablet 650 mg(Linked Group 1) 650 mg, Oral, Every 6 hours PRN, mild pain (1-3), fever, For temp greater than 100.4 F (38 C), Starting on Francy 05/20/23 at 2053, Maximum dose of acetaminophen is 4000 mg from all sources in 24 hours. bisacodyl (Dulcolax) EC tablet 5 mg 5 mg, Oral, Daily PRN, constipation, Starting on Francy 05/20/23 at 2053, Do not give within 1 hour of antacids, milk, or dairy products. Do not crush, chew, or split. bisacodyl (Dulcolax) suppository 10 mg 10 mg, Rectal, Daily PRN, constipation, Starting on Wed05/20/23 at 2053 guaiFENesin (Mucinex) 12 hr tablet 600 mg 600 mg, Oral, 2 times daily PRN, cough, Starting on Wed05/20/23 at 2113, Administer with plenty of fluids to ensure proper action. Substituted for available formulary product Do not crush, chew, or split. ipratropium-albuterol (Duo-Neb) 0.5-2.5 mg/3 mL nebulizer solution 3 mL (COMPLETED) 3 mL, Nebulization, As needed, wheezing, Starting on Wed05/20/23 at 0252, For 1 dose 0502 (Given - Provider: Negra Savage RN) ipratropium-albuterol (Duo-Neb) 0.5-2.5 mg/3 mL nebulizer solution 3 mL 3 mL, Nebulization, 4 times daily PRN, wheezing, shortness of breath, Starting on Wed05/21/23 at 1238 melatonin tablet 3 mg 3 mg, Oral, Nightly PRN, sleep, Starting on Wed05/20/23 at 2053 2117 (Given - Provider: SHELLEY PEREYRA) ondansetron (Zofran) injection 4 mg(Linked Group 2) 4 mg, IntraVENous, Every 6 hours PRN, nausea, vomiting, Starting on Wed05/20/23 at 2053, 1st Line. Give IV if patient is unable to take orally. If inadequate response within 60 minutes, proceed to next-line agent or contact provider if no further options ordered. 2116 (Given - Provider: SHELLEY PEREYRA) ondansetron ODT (Zofran-ODT) disintegrating tablet 4 mg(Linked Group 2) 4 mg, Oral, Every 8 hours PRN, nausea, vomiting, Starting on Wed05/20/23 at 2053, 1st Line. If inadequate response within 60 minutes, proceed to next-line agent or contact provider if no further options ordered. Patient should allow tablet to dissolve on tongue. Do not remove from blister pack until just before administering. 2116 (See Alternative - Provider: SHELLEY BRUSH) polyethylene glycol (PEG) 3350 (Miralax) packet 17 g 17 g, Oral, Daily PRN, constipation, Starting on Francy 05/20/23 at 2053, 1st line for treatment of constipation - give scheduled if no bowel movement in past 24 hours. sodium chloride 0.9 % bolus 30 mL (COMPLETED) 30 mL, IntraVENous, at 180 mL/hr, Administer over 10 Minutes, PRN, for Remdesivir line flush, Starting on Francy 05/20/23 at 0706, For 1 dose 1036 (New Bag - Provider: Betsey Marcial, RN)1049 (Stopped - Provider: Betsey Marcial, BEN) sodium chloride 0.9 % infusion 5-250 mL/hr, IntraVENous, PRN, if patient receiving piggyback infusions and maintenance fluids are not ordered OR KVO fluids to protect IV site / prevent frequent line interruptions/ long duration, Starting on Francy 05/20/23 at 2053, For piggyback infusion, administer at same rate as piggyback for a total of 25 mL. Enter 25 mL into dose field and piggyback rate into rate field of order. If piggyback is infusing at a rate less than 100 mL/hr, enter 25 mL into dose field and 100 mL/hr into rate field of order. For KVO fluids, enter rate of 20 mL/hr or less into rate field of order. sodium chloride 0.9% (NS) flush 10 mL 10 mL, IntraVENous, PRN, line care, Starting on Francy 05/20/23 at 2053, After every IV line use Linked Groups Order Group 1: acetaminophen (Tylenol) tablet 650 mgJump to med 650 mg, Oral, Every 6 hours PRN, mild pain (1-3), fever, For temp greater than 100.4 F (38 C), Starting on Francy 05/20/23 at 2053, Maximum dose of acetaminophen is 4000 mg from all sources in 24 hours. Or acetaminophen (Tylenol) suppository 650 mgJump to med 650 mg, Rectal, Every 6 hours PRN, mild pain (1-3), fever, For temp greater than 100.4 F (38 C), Starting on Francy 05/20/23 at 2053, Administer if oral route cannot be used. Maximum dose of acetaminophen is 4000 mg from all sources in 24 hours. Group 2: ondansetron ODT (Zofran-ODT) disintegrating tablet 4 mgJump to med 4 mg, Oral, Every 8 hours PRN, nausea, vomiting, Starting on Francy 05/20/23 at 2054, 1st Line. If inadequate response within 60 minutes, proceed to next-line agent or contact provider if no further options ordered. Patient should allow tablet to dissolve on tongue. Do not remove from blister pack until just before administering. Or ondansetron (Zofran) injection 4 mgJump to med 4 mg, IntraVENous, Every 6 hours PRN, nausea, vomiting, Starting on Francy 05/20/23 at 2054, 1st Line. Give IV if patient is unable to take orally. If inadequate response within 60 minutes, proceed to next-line agent or contact provider if no further options ordered. PRN Medication Order 05/28/2023 05/29/2023 05/30/2023 iopamidol (Isovue-370) 76 % injection 75 mL (COMPLETED) 75 mL, IntraVENous, IMG once PRN, contrast, Starting on 05/30/23 at 1337, For 1 dose 1441 (Given - Provid er: Addie Richards, RT (R)(CT)) Scheduled Medication Order 06/05/2023 06/06/2023 06/07/2023 nicotine (Nicoderm, Step 1) 21 MG/24HR patch 1 patch 1 patch, TransDERmal, Administer over 24 Hours, Daily, First dose on Wed06/07/23 at 1900, Apply new patch to nonhairy, clean, dry skin on the upper body or upper outer arm. Rotate patch sites. Notify Pharmacy if patient or provider prefers patch to be removed at bedtime and replaced in the morning. 1907 (Medication Deanne lied - Provider: Madalyn Salmon RN)2100 (Due: Medication Removed - Provider: Automatic Discharge Provider - Comment: Time automatically adjusted from order being discontinued) oxyCODONE-acetaminophen (Percocet) 5-325 MG per tablet 1 tablet (COMPLETED) 1 tablet, Oral, Once, On Wed06/07/23 at 1640, For 1 dose, Maximum dose of acetaminophen is 4000 mg from all sources in 24 hours. 164 (Given - Provid er: Madalyn Salmon RN) Scheduled Medication Order 08/14/2023 08/15/2023 08/16/2023 ondansetron (Zofran) injection 4 mg (COMPLETED) 4 mg, IntraVENous, Once, On Wed08/16/23 at 0605, For 1 dose 0604 (Given - Provid er: Celeste Gibson, BEN) ondansetron ODT (Zofran-ODT) disintegrating tablet 4 mg 4 mg, Oral, Once, On Wed08/16/23 at 0600, For 1 dose 0600 (Not Given - Pr ovider: Celeste Gibson, BEN - Reason: Other - Comment: gave IV) PRN Medication Order 08/14/2023 08/15/2023 08/16/2023 iopamidol (Isovue-370) 76 % injection 75 mL (COMPLETED) 75 mL, IntraVENous, IMG once PRN, contrast, Starting on Wed08/16/23 at 0413, For 1 dose 0413 (Given - Provid er: Dianna Arroyo, RT (R)(CT)) Scheduled Medication Order 08/19/2023 08/20/2023 08/21/2023 baclofen (Lioresal) tablet 10 mg 10 mg, Oral, 3 times daily, First dose on Francy 08/19/23 at 1400 1526 (Given - Provider: Za Yoder RN)2040 (Given - Provider: Lyudmila Velásquez RN) 0909 (Given - Provider: Nimco Aguirre)1700 (Given - Provider: Za Yoder RN)2020 (Given - Provider: Debora Veras RN) 09 (Given - Provider: Azul Andrade RN)1400 (Canceled Entry - Provider: Automatic Discharge Provider - Comment: Automatically canceled at discontinue of medication order) divalproex sprinkle (Depakote Sprinkle) DR capsule 500 mg 500 mg, Oral, 3 times daily, First dose on Francy 08/19/23 at 1400, Do not crush or chew. 1636 (Given - Provider: Za Yoder RN)2040 (Given - Provider: Lyudmila Velásquez RN - Comment: ok to give per pharmacy) 09 (Given - Provider: Nimco Aguirre)1700 (Given - Provider: Za Yoder RN)2020 (Given - Provider: Debora Vears RN) 0916 (Given - Provider: Azul Andrade, BEN)1400 (Canceled Entry - Provider: Automatic Discharge Provider - Comment: Automatically canceled at discontinue of medication order) escitalopram (Lexapro) tablet 15 mg 15 mg, Oral, Daily, First dose on Francy 24 at 1315 1526 (Given - Provider: Za Yoder RN) 0908 (Given - Provider: Nimco Aguirre) 0902 (Given - Provider: Azul Andrade RN) folic acid (Folvite) tablet 1 mg 1 mg, Oral, Daily, First dose on Francy 24 at 1315 1526 (Given - Provider: Za Yoder RN) 0907 (Given - Provider: Nimco Aguirre) 0902 (Given - Provider: Azul Andrade RN) levETIRAcetam (Keppra) tablet 750 mg 750 mg, Oral, 2 times daily, First dose on Francy 08/19/23 at 1315 1526 (Given - Provider: Za Yoder RN)2041 (Given - Provider: Lyudmila Velásquez RN - Comment: ok to give per pharmacy) 0907 (Given - Provider: Nimco Aguirre)2020 (Given - Provider: Debora Veras RN) 0903 (Given - Provider: Azul Andrade RN) naltrexone (Depade) tablet 50 mg 50 mg, Oral, Daily, First dose on Francy 08/19/23 at 1315 1635 (Given - Provider: Za Yoder RN) 0906 (Given - Provider: Nimco Aguirre) 0906 (Given - Provider: Azul Andrade RN) pantoprazole (ProtoNix) 40 mg in sodium chloride (PF) 0.9 % 10 mL injection 40 mg, IntraVENous, Administer over 2 Minutes, 2 times daily, First dose on Francy 08/19/23 at 1315, Reconstitute with 10 ml NS. Vial expires 2 hrs after reconstitution. 1526 (Given - Provider: Za Yoder RN)204 (Given - Provider: Lyudmila Velásquez RN) 09 (Given - Provider: Nimco Aguirre)2020 (Given - Provider: Debora Veras RN) 09 (Given - Provider: Azul Andrade, BEN) pantoprazole (ProtoNix) 80 mg in sodium chloride (PF) 0.9 % 20 mL injection (COMPLETED) 80 mg, IntraVENous, Administer over 2 Minutes, Once, On Francy 08/19/23 at 0220, For 1 dose, Reconstitute with 10 ml NS. Vial expires 2 hrs after reconstitution. 0241 (Given - Provider: Lynda Savage RN) potassium chloride CR (Klor-Con M20) ER tablet 40 mEq (COMPLETED) 40 mEq, Oral, Once, On Wed08/20/23 at 1515, For 1 dose, Best given with food and plenty of water to minimize gastric irritation. Do not crush or chew. 1700 (Given - Provider: Za Yoder RN) pyridoxine (Vitamin B-6) tablet 25 mg 25 mg, Oral, Daily, First dose on Francy 08/19/23 at 1315 1526 (Given - Provider: Za Yoder RN) 0909 (Given - Provider: Nimco Aguirre) 09 (Given - Provider: Azul Andrade, BEN) QUEtiapine (SEROquel) tablet 200 mg 200 mg, Oral, 2 times daily, First dose on Francy 08/19/23 at 1315 1526 (Given - Provider: Za Yoder RN)2040 (Given - Provider: Lyudmila Velásquez RN - Comment: ok to give per pharmacy) 09 (Given - Provider: Nimco Aguirre)2020 (Given - Provider: Debora Veras RN) 0903 (Given - Provider: Azul Andrade, BEN) tamsulosin (Flomax) 24 hr capsule 0.4 mg 0.4 mg, Oral, Daily, First dose on Francy 08/19/23 at 2230, Do not crush, chew, or split. 2230 (Given - Provider: Lyudmila Velásquez RN) 09 (Given - Provider: Nimco Aguirre) 0903 (Given - Provider: Azul Andrade, BEN) thiamine (Vitamin B1) tablet 100 mg 100 mg, Oral, Daily, First dose on Francy 08/19/23 at 1315 1526 (Given - Provider: Za Yoder RN) 0907 (Given - Provider: Nimco Aguirre) 0903 (Given - Provider: Azul Andrade RN) PRN Medication Order 08/19/2023 08/20/2023 08/21/2023 acetaminophen (Tylenol) suppository 650 mg(Linked Group 1) 650 mg, Rectal, Every 6 hours PRN, mild pain (1-3), fever, For temp greater than 100.4 F (38 C), Starting on Francy 08/19/23 at 1255, Administer if oral route cannot be used. Maximum dose of acetaminophen is 4000 mg from all sources in 24 hours. 1526 (See Alternative - Provider: Za Yoder RN) 0441 (See Alternative - Provider: Lyudmila Velásquez RN) acetaminophen (Tylenol) tablet 650 mg(Linked Group 1) 650 mg, Oral, Every 6 hours PRN, mild pain (1-3), fever, For temp greater than 100.4 F (38 C), Starting on Francy 08/19/23 at 1255, Maximum dose of acetaminophen is 4000 mg from all sources in 24 hours. 1526 (Given - Provider: Za Yoder RN) 0441 (Given - Provider: Lyudmila Velásquez RN) albuterol 108 (90 Base) MCG/ACT inhaler 2 puff 2 puff, Inhalation, Every 6 hours PRN, shortness of breath, wheezing, Starting on Francy 08/19/23 at 1303 bisacodyl (Dulcolax) EC tablet 5 mg 5 mg, Oral, Daily PRN, constipation, Starting on Francy 08/19/23 at 1303, Do not give within 1 hour of antacids, milk, or dairy products. Do not crush, chew, or split. guaiFENesin (Mucinex) 12 hr tablet 600 mg 600 mg, Oral, 2 times daily PRN, congestion, Starting on Francy 08/19/23 at 1431, Administer with plenty of fluids to ensure proper action. Do not crush, chew, or split. ipratropium-albuterol (Duo-Neb) 0.5-2.5 mg/3 mL nebulizer solution 3 mL 3 mL, Nebulization, Every 6 hours PRN, shortness of breath, wheezing, Starting on Francy 08/19/23 at 1303 magnesium hydroxide (Milk of Magnesia) 400 MG/5ML suspension 30 mL 30 mL, Oral, Daily PRN, heartburn, Starting on Francy 08/19/23 at 1304, Follow dose with 8 oz of water. 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 immediately after first dose, may give IM or SQ if no IV access +++ oxyCODONE (Roxicodone) immediate release tablet 5 mg 5 mg, Oral, Every 6 hours PRN, moderate pain (4-6), severe pain (7-10), Starting on Francy 08/19/23 at 1548 1610 (Given - Provider: Za Yoder RN) 0153 (Given - Provider: Lyudmila Velásquez RN)2021 (Given - Provider: Debora Veras, BEN) 0236 (Given - Provider: Debora Veras, BEN) polyethylene glycol (PEG) 3350 (Miralax) packet 17 g 17 g, Oral, Daily PRN, constipation, Starting on Francy 08/19/23 at 1255, 1st line for treatment of constipation - give scheduled if no bowel movement in past 24 hours. prochlorperazine (Compazine) injection 5 mg 5 mg, IntraVENous, Every 6 hours PRN, nausea, vomiting, Starting on Francy 08/19/23 at 1315 0442 (Given - Provider: Lyudmila Velásquez, BEN) regadenoson (Lexiscan) injection 0.4 mg 0.4 mg, IntraVENous, IMG once PRN, Stress test, Starting on Francy 08/19/23 at 0848, For 1 dose, CV Procedural Medications Linked Groups Order Group 1: acetaminophen (Tylenol) tablet 650 mgJump to med 650 mg, Oral, Every 6 hours PRN, mild pain (1-3), fever, For temp greater than 100.4 F (38 C), Starting on Francy 08/19/23 at 1255, Maximum dose of acetaminophen is 4000 mg from all sources in 24 hours. Or acetaminophen (Tylenol) suppository 650 mgJump to med 650 mg, Rectal, Every 6 hours PRN, mild pain (1-3), fever, For temp greater than 100.4 F (38 C), Starting on Francy 08/19/23 at 1255, Administer if oral route cannot be used. Maximum dose of acetaminophen is 4000 mg from all sources in 24 hours. Care Teams (unrecognized sec tion and content) Team Status: Inactive Member Role Status Dates Antonella OLIVAS Attending Provider Active Team Status: Active Member Role Status Dates Antonella OLIVAS Attending Provider Active Team Status: Inactive Member Role Status Dates Antonella OLIVAS Attending Provider, Referring Provi natalie Active Team Status: Inactive Member Role Status Dates Antonella Marrero Attending Provider Active Team Status: Inactive Member Role Status Dates Antonella Marrero Attending Provider, Referring Provider Active Team Status: Active Member Role Status Dates Antonella Marrero Attending Provider Active Agricultural Economics Professor Relationship Specialty Start Date End Date Christa Gloria MD [address] [place]. [address] [place] [phone] PCP - General 03/05/16 Agricultural Economics Professor Relationship Specialty Start Date End Date Antonella Marrero [address] [place] [address] PCP - General 11/13/21 Agricultural Economics Professor Relationship Specialty Start Date End Date FlavioAntonella [address] [place] [address] PCP - General 11/13/21 Agricultural Economics Professor Relationship Specialty Start Date End Date Flavio Antonella [address] [place] [phone] PCP - General 11/13/21 Agricultural Economics Professor Relationship Specialty Start Date End Date Antonella Marrero [address] [place] [phone] PCP - General 11/13/21 Agricultural Economics Professor Relationship Specialty Start Date End Date Antonella Marrero [address] [place] [address] PCP - General 11/13/21 Agricultural Economics Professor Relationship Specialty Start Date End Date Antonella Marrero [address] [place] [address] PCP - General 11/13/21 Agricultural Economics Professor Relationship Specialty Start Date End Date Antonella Marrero [address] [place] [phone] PCP - General 11/13/21 Yun Rubio MD [address] [place] [address] Surgeon Urology 06/01/23 Christiano Fernández MD [address] [place] [address] Surgeon Urology 06/07/23 Leslie Guerrero, RN Nurse Navigator Oncology 06/07/23 Agricultural Economics Professor Relationship Specialty Start Date End Date Antonella Marrero [address] [place] [phone] PCP - General 11/13/21 Yun uRbio MD [address] [place] [address] Surgeon Urology 06/01/23 Christiano Fernández MD [address] [place] [address] Surgeon Urology 06/07/23 Leslie Guerrero, RN Nurse Navigator Oncology 06/07/23 Agricultural Economics Professor Relationship Specialty Start Date End Date Antonella Marrero [address] [place] [phone] PCP - General 11/13/21 Yun Rubio MD [address] [place] [address] Surgeon Urology 06/01/23 Christiano Fernández MD [address] [place] [address] Surgeon Urology 06/07/23 Leslie Guerrero, BEN Nurse Navigator Oncology 06/07/23 Agricultural Economics Professor Relationship Specialty Start Date End Date Antonella Marrero [address] [place] [phone] PCP - General 11/13/21 Yun Rubio MD [address] [place] [address] Surgeon Urology 06/01/23 Christiano Fernándze MD [address] [place] [address] Surgeon Urology 06/07/23 Leslie Guerrero, RN Nurse Navigator Oncology 06/07/23 Agricultural Economics Professor Relationship Specialty Start Date End Date Antonella Marrero [address] [place] [phone] PCP - General 11/13/21 Yun Rubio MD [address] [place] [address] Surgeon Urology 06/01/23 Christiano Fernández MD [address] [place] [address] Surgeon Urology 06/07/23 Leslie Guerrero, RN Nurse Navigator Oncology 06/07/23 Agricultural Economics Professor Relationship Specialty Start Date End Date Antonella Marrero [address] [place] [phone] PCP - General 11/13/21 Yun Rubio MD [address] [place] [address] Surgeon Urology 06/01/23 Christiano Fernández MD [address] [place] [address] Surgeon Urology 06/07/23 Leslie Guerrero, RN Nurse Navigator Oncology 06/07/23 Agricultural Economics Professor Relationship Specialty Start Date End Date Antonella Marrero [address] [place] [phone] PCP - General 11/13/21 Yun Rubio MD [address] [place] [address] Surgeon Urology 06/01/23 Christiano Fernández MD [address] [place] [address] Surgeon Urology 06/07/23 Leslie Guerrero, RN Nurse Navigator Oncology 06/07/23 Agricultural Economics Professor Relationship Specialty Start Date End Date Antonella Marrero [address] [place] [phone] PCP - General 11/13/21 Yun Rubio MD [address] [place] [address] Surgeon Urology 06/01/23 Christiano Fernández MD [address] [place] [address] Surgeon Urology 06/07/23 Leslie Guerrero, RN Nurse Navigator Oncology 06/07/23 Agricultural Economics Professor Relationship Specialty Start Date End Date Antonella Marrero [address] [place] [phone] PCP - General 11/13/21 Yun Rubio MD [address] [place] [address] Surgeon Urology 06/01/23 Christiano Fernández MD [address] [place] [address] Surgeon Urology 06/07/23 Leslie Guerrero, RN Nurse Navigator Oncology 06/07/23 Agricultural Economics Professor Relationship Specialty Start Date End Date Antonella Marrero [address] [place] [phone] PCP - General 11/13/21 Yun Rubio MD [address] [place] [address] Surgeon Urology 06/01/23 Christiano Fernández MD [address] [place] [address] Surgeon Urology 06/07/23 Leslie Guerrero, RN Nurse Navigator Oncology 06/07/23 Agricultural Economics Professor Relationship Specialty Start Date End Date Antonella Marrero [address] [place] [phone] PCP - General 11/13/21 Yun Rubio MD [address] [place] [address] Surgeon Urology 06/01/23 Christiano Fernández MD [address] [place] [address] Surgeon Urology 06/07/23 Leslie Guerrero, RN Nurse Navigator Oncology 06/07/23 Agricultural Economics Professor Relationship Specialty Start Date End Date Pallavi Rodriguez MD [address] [address] PCP - General Internal Medicine 09/01/17 [facility] 03/30/17 Agricultural Economics Professor Relationship Specialty Start Date End Date Antonella Marrero [address] [place] [phone] PCP - General 11/13/21 Yun Rubio MD [address] [place] [address] Surgeon Urology 06/01/23 Christiano Fernández MD [address] [place] [address] Surgeon Urology 06/07/23 Leslie Guerrero, RN Nurse Navigator Oncology 06/07/23 Agricultural Economics Professor Relationship Specialty Start Date End Date Antonella Marrero [address] [facility] [address] [place] [address] PCP - General 11/13/21 Yun Rubio MD [address] [place] [address] Surgeon Urology 06/01/23 Christiano Fernández MD [address] [place] [address] Surgeon Urology 06/07/23 Leslie Guerrero, RN Nurse Navigator Oncology 06/07/23 Team Status: Inactive Member Role Status Dates Antonella OLIVAS Attending Provider Active Sta rt: April 20, 2024 End: April 20, 2024 Team Status: Inactive Member Role Status Dates Antonella OLIVAS Attending Provider Active Sta rt: April 28, 2024 End: April 28, 2024 Team Status: Active Member Role Status Dates Antonella OLIVAS Attending Provider Active Sta rt: May 09, 2024 Team Status: Inactive Member Role Status Dates Antonella OLIVAS Attending Provider Active Sta rt: July 21, 2024 End: July 21, 2024 Team Status: Active Member Role Status Dates Antonella OLIVAS Attending Provider Active Sta rt: August 23, 2024 Team Status: Inactive Member Role Status Dates Antonella OLIVAS Attending Provider Active Sta rt: August 28, 2024 End: August 28, 2024 Team Status: Inactive Member Role Status Dates Antonella OLIVAS Attending Provider Active Sta rt: August 23, 2024 End: August 23, 2024 Source Comments (unrecognize d section and content) In the event this informatio n is protected by the [facility] Confidentiality of Alcohol and Drug Abuse Patient Records regulations: The Federal rules restrict any use of the information to criminally investigate or prosecute any alcohol or drug abuse patient.[facility] FOR RECORDS PERTAINING TO PATIENTS WHO ARE OR HAVE BEEN ENROLLED IN A CHEMICAL DEPENDENCY/SUBSTANCEABUSE PROGRAM, SOME INFORMATION MAY BE OMITTED. This clinical summary was aggregated from multiple sources. Caution should be exercised in using it in the provision of clinical care. This summary normalizes information from multiple sources, and as a consequence, information in this document may materially change the coding, format and clinical context of patient data. In addition, data may be omitted in some cases. CLINICAL DECISIONS SHOULD BE BASED ON THE PRIMARY CLINICAL RECORDS. [facility] [employer] [facility]. provides no warranty or guarantee of the accuracy or completeness of information in this document.
[2024-11-17 08:19] LABS: Hemoglobin 13.9 g/dL (13.0-16.5); Mean Corp Hgb Conc 34.8 g/dL (32-36); Mean Corpuscular Hgb 31.6 pg (27.0-32.0); Mean Corpuscular Volume 90.9 fL (80-94); Platelet Count 166 K/mm3 (150-450); RBC Distribution Width CV 13.2 % (11.6-14.6); White Blood Count 6.8 K/mm3 (4.4-11.0)
[2024-11-17 08:29] LABS: Anion Gap 12 (5-15); BUN 11 mg/dL (4-19); BUN/Creat Ratio 9.5 RATIO (10-20); Calcium,Total 8.8 mg/dL (7.6-11.0); Carbon Dioxide 24.7 mmol/L (21.0-32.0); Chloride 103 mmol/L (98-108); Creatinine, Serum 1.19 mg/dL (0.70-1.20); EST Glomerular Filtration Rate 72 (>60); Glucose 89 mg/dL (70-99); Potassium 4.2 mmol/L (3.3-5.1); Sodium Level 139 mmol/L (133-145)
== END | disposition home or self-care (01) ==
LOC: OLS.SANC 05:00
PROVIDERS: Visit Provider Internal Medicine
DX: E11.9 Type 2 diabetes mellitus without complications (principal); G82.20 Paraplegia, unspecified; S06.9X9S Unspecified intracranial injury with loss of consciousness of unspecified duration, sequela
CPT/HCPCS: 36415; 80048; 85027

== ENCOUNTER → 2025-02-16 | Outpatient (REF) | payer MEDICAID, SELFPAY ==
[2025-02-16 08:33] LABS: Hematocrit 39.5 % (40-54); Hemoglobin 14.0 g/dL (13.0-16.5); Mean Corp Hgb Conc 35.4 g/dL (32-36); Mean Corpuscular Volume 90.6 fL (80-94); Mean Platelet Vol. 9.2 fl (6.2-12.0); Platelet Count 167 K/mm3 (150-450); RBC Distribution Width CV 12.4 % (11.6-14.6); RBC Distribution Width SD 41.1 fl (35.1-43.9); Red Blood Count 4.36 M/mm3 (4.6-6.2); White Blood Count 6.5 K/mm3 (4.4-11.0)
[2025-02-16 08:48] LABS: Anion Gap 10 (5-15); BUN 6 mg/dL (4-19); BUN/Creat Ratio 5.0 RATIO (10-20); Calcium,Total 9.0 mg/dL (7.6-11.0); Carbon Dioxide 25.5 mmol/L (21.0-32.0); Chloride 100 mmol/L (98-108); Glucose 72 mg/dL (70-99); Potassium 4.1 mmol/L (3.3-5.1)
== END | disposition home or self-care (01) ==
LOC: OLS.SANC 05:00
PROVIDERS: Visit Provider Family Medicine
DX: I10 Essential (primary) hypertension (principal); J44.9 Chronic obstructive pulmonary disease, unspecified; D64.9 Anemia, unspecified
CPT/HCPCS: 36415; 80048; 85027

== ENCOUNTER → 2025-02-19 | Outpatient (REF) | payer MEDICAID, SELFPAY ==
[2025-02-19 09:58] LABS: Vitamin D,25 Hydroxy 31.7 ng/mL (30-100)
== END | disposition home or self-care (01) ==
LOC: OLS.SANC 04:00
PROVIDERS: Referring Provider Internal Medicine; Visit Provider Internal Medicine
DX: I10 Essential (primary) hypertension (principal); J44.9 Chronic obstructive pulmonary disease, unspecified; D64.9 Anemia, unspecified
CPT/HCPCS: 36415; 82306

== ENCOUNTER → 2025-02-22 | Outpatient (REF) | payer MEDICAID, SELFPAY ==
[2025-02-22 10:07] LABS: Valproic Acid (Depakene) Level 86 ug/mL (50-100)
== END | disposition home or self-care (01) ==
LOC: OLS.SANC 06:50
PROVIDERS: Visit Provider Internal Medicine
DX: Z79.899 Other long term (current) drug therapy (principal)
CPT/HCPCS: 36415; 80164